=== PATIENT | male | born 1945 | race African-American/Black ===

== ENCOUNTER → 2016-05-11 | Outpatient (CLI) | payer MEDICARE ==
[2016-05-11 15:00] LABS: ANION GAP 10 (5-19); BLOOD UREA NITROGEN 13 mg/dL (7-20); CALCIUM 10.2 mg/dL (8.4-10.2); CARBON DIOXIDE 29 mmol/L (22-30); CHLORIDE 105 mmol/L (98-107); CREATININE RESULT 1.71 mg/dL (0.52-1.25); GLUCOSE 92 mg/dL (75-110); POTASSIUM 4.4 mmol/L (3.6-5.0); SODIUM 143.7 mmol/L (137-145)
== END ==
LOC: OD 13:52
PROVIDERS: ATTEND Internal Medicine Nephrology
DX: I12.9 Hypertensive chronic kidney disease with stage 1 through stage 4 chronic kidney disease, or unspecified chronic kidney disease (principal); N18.3 Chronic kidney disease, stage 3 (moderate)
CPT/HCPCS: 36415; 80048

== ENCOUNTER 2016-09-23 16:49 | Inpatient (IN) | payer MEDICARE ==
[2016-09-23] MEDS ORDERED: IPRATROPIUM/ALBUTEROL 0.5-2.5 MG/3 ML AMPUL NEB ONE ×2 (17:01→17:03)
--- NOTE | 2016-09-23 17:04 | ER Document Report ---
ED Medical Screen (RME) - General Chief Complaint: Respiratory Distress Stated Complaint: DIFFICULTY BREATHING Time Seen by Provider: 09/23/16 16:57 Notes: This 71-year-old male patient with past history of stroke and heart attack brought to emergency room for respiratory difficulty that probably started during the night. His family reports that he vomited quite a bit last night while he is in bed but it had not been noticed until this morning. He is on Coumadin, and medications for his COPD. He is quite dyspneic using accessory muscles, pulse ox is 90% on room air and increased to 100% on 2 L nasal cannula. He did remain quite tachypneic despite the oxygen. I have greeted and performed a rapid initial assessment of this patient. A comprehensive ED assessment and evaluation of the patient, analysis of test results and completion of the medical decision making process will be conducted by additional ED providers. TRAVEL OUTSIDE OF THE [place] IN LAST 30 DAYS: No - Related Data Allergies/Adverse Reactions: No Known Allergies Allergy (Verified 09/23/16 16:51) Past Medical History - Past Medical History Cardiac Medical History: Reports: Hx Heart Attack, Hx Hypertension Pulmonary Medical History: Reports: Hx COPD Neurological Medical History: Reports: Hx Cerebrovascular Accident Renal/ Medical History: Denies: Hx Peritoneal Dialysis Psychiatric Medical History: Denies: Hx Depression Physical Exam - Vital signs Vitals: Temp Pulse Resp BP Pulse Ox 98.2 F 81 32 H 188/100 H 90 L 09/23/16 16:51 09/23/16 16:51 09/23/16 16:51 09/23/16 16:51 09/23/16 16:51 Course - Vital Signs Vital signs: Temp Pulse Resp BP Pulse Ox 98.2 F 81 32 H 188/100 H 90 L 09/23/16 16:51 09/23/16 16:51 09/23/16 16:51 09/23/16 16:51 09/23/16 16:51
[2016-09-23] MEDS ORDERED: ASPIRIN 325 MG TABLET PO ONE (17:45)
[2016-09-23] MEDS ORDERED: METHYLPREDNISOLONE INJ 125 MG/2 ML SDV IV ONE (17:45)
--- NOTE | 2016-09-23 17:48 | RADIOLOGY REPORT (SQ) ---
EXAM DESCRIPTION: CHEST SINGLE VIEW COMPLETED DATE/TIME: 09/23/2016 5:35 pm REASON FOR STUDY: SOB COMPARISON: 08/22/2014 EXAM PARAMETERS: NUMBER OF VIEWS: One view. TECHNIQUE: Single frontal radiographic view of the chest acquired. RADIATION DOSE: NA LIMITATIONS: None. FINDINGS: LUNGS AND PLEURA: No opacities, masses or pneumothorax. No pleural effusion. MEDIASTINUM AND HILAR STRUCTURES: No masses. Contour normal. HEART AND VASCULAR STRUCTURES: Heart normal in size. Normal vasculature. BONES: No acute findings. HARDWARE: None in the chest. OTHER: No other significant finding. IMPRESSION: NO ACUTE RADIOGRAPHIC FINDING IN THE CHEST. TECHNICAL DOCUMENTATION: JOB ID: [id number]
[2016-09-23 18:02] LABS: ARTERIAL BLOOD BASE EXCESS -0.6 mmol/L; ARTERIAL BLOOD O2 SATURATION 97.2 % (94-98)
--- NOTE | 2016-09-23 18:40 | ER Document Report ---
ED Respiratory Problem - General Mode of Arrival: Wheelchair Information source: Patient TRAVEL OUTSIDE OF THE [place] IN LAST 30 DAYS: No - HPI Onset: Other - Refer to HPI notes Associated symptoms: Other - vomiting, abdominal pain Similar symptoms previously: No Recently seen / treated by doctor: No <SOCORRO MONROY - Last Filed: 09/23/16 20:26> <DORIS SCHWAB - Last Filed: 09/24/16 01:03> - General Chief Complaint: Respiratory Distress Stated Complaint: DIFFICULTY BREATHING Time Seen by Provider: 09/23/16 16:57 Notes: Patient is a 71 year old male presenting to the emergency department for dyspnea. Patient's family reports that the patient vomited a lot last night while he was in bed. Patient took his medications this morning and has been complaining of some abdominal pain. Patient was 90% pulse ox on room air at triage and tachypneic still with 2 L of oxygen. Patient has a history of CVA, COPD, MA, hypertension and CHF. Patient's sees Dr. Kebede (urology) and Dr. Hancock (cardiology). (SOCORRO MONROY) Patient described note Dr. Kebede is nephrology. (DORIS SCHWAB) - Related Data Allergies/Adverse Reactions: No Known Allergies Allergy (Verified 09/23/16 16:51) Home Medications: Current Home Medications Albuterol Sulfate [Ventolin Hfa] 1 - 2 puff IH Q4 PRN 09/23/16 [History] [place]-3/Dha/Epa/Fish Oil [Fish Oil 1,000 mg Softgel] 1 each PO DAILY 09/23/16 [ History] Rivaroxaban [Xarelto] 15 mg PO DAILY 09/23/16 [History] Past Medical History - General Information source: Patient - Social History Smoking Status: Former Smoker Chew tobacco use (# tins/day): No Frequency of alcohol use: None Drug Abuse: None Family History: None Patient has suicidal ideation: No Patient has homicidal ideation: No - Past Medical History Cardiac Medical History: Reports: Hx Congestive Heart Failure, Hx Heart Attack, Hx Hypertension Pulmonary Medical History: Reports: Hx COPD Neurological Medical History: Reports: Hx Cerebrovascular Accident Surgical Hx: Negative <SOCORRO MONROY - Last Filed: 09/23/16 20:26> Review of Systems - Review of Systems Constitutional: No symptoms reported EENT: No symptoms reported Cardiovascular: No symptoms reported Respiratory: See HPI Gastrointestinal: See HPI, Abdomen distended, Abdominal pain, Nausea, Vomiting Genitourinary: No symptoms reported Male Genitourinary: No symptoms reported Musculoskeletal: No symptoms reported Skin: No symptoms reported Hematologic/Lymphatic: No symptoms reported Neurological/Psychological: No symptoms reported -: Yes All other systems reviewed and negative <SOCORRO MONROY - Last Filed: 09/23/16 20:26> Physical Exam <SOCORRO MONROY - Last Filed: 09/23/16 20:26> <DORIS SCHWAB - Last Filed: 09/24/16 01:03> - Vital signs Vitals: Temp Pulse Resp BP Pulse Ox 98.2 F 81 32 H 188/100 H 90 L 09/23/16 16:51 09/23/16 16:51 09/23/16 16:51 09/23/16 16:51 09/23/16 16:51 - Notes Notes: GENERAL: Alert, interacts well. No acute distress. HEAD: Normocephalic, atraumatic. EYES: Pupils equal, round, and reactive to light. Extraocular movements intact. ENT: Oral mucosa moist, tongue midline. NECK: Full range of motion. Supple. Trachea midline. LUNGS: Tachypneic. Accessory muscle use. Expiratory wheezing. Inspiratory crackles at the bases. HEART: Regular rate and rhythm. No murmurs, gallops, or rubs. ABDOMEN: Soft, no obvious signs of pain with palpation. Moderate distention. Bowel sounds present in all 4 quadrants. EXTREMITIES: Moves all 4 extremities spontaneously. Trace pitting edema at the ankles bilaterally. Radial and dorsalis pedis pulses 2/4 bilaterally. No cyanosis. NEUROLOGICAL: Alert and oriented x3. Normal speech. PSYCH: Normal affect, normal mood. SKIN: Warm, dry, normal turgor. No rashes or lesions noted. (SOCORRO MONROY) Correction to scribe exam the patient is alert but does not interact well, he is acutely short of breath, he is alert but is not oriented to person place or time, he answers all questions by saying yes and then will have 1-2 words that are actually pertinent to the question. (DORIS SCHWAB) Course - Laboratory Result Diagrams: 09/23/16 19:29 09/23/16 19:29 <SOCORRO MONROY - Last Filed: 09/23/16 20:26> - Laboratory Result Diagrams: 09/23/16 19:29 09/23/16 19:29 <DORIS SCHWAB - Last Filed: 09/24/16 01:03> - Re-evaluation Re-evalutation: 09/23/16 20:26 Patient was rechecked at this time. Patient is still wheezing and using accessory muscles when breathing. BiPAP will be ordered. (SOCORRO MONROY) 09/23/16 22:10 . CBC unremarkable, on Xarelto, arterial blood gas shows respiratory acidosis with pH of 7.3 and PCO2 of 55, CMP shows elevated creatinine 1.45 otherwise unremarkable, cardiac enzymes negative, proBNP somewhat elevated 924 but not clinically consistent with the patient's picture, chest x-ray negative, CT scan of the abdomen and pelvis was undertaken given the history of vomiting and the abdominal distention, this is negative. Discussed patient with Dr. Bernard the hospitalist on-call who agrees to admit the patient to his service as the patient did not improve with breathing treatments or steroids. Patient was placed on BiPAP and appears more comfortable. Patient will be admitted to the telemetry unit. (DORIS SCHWAB) - Vital Signs Vital signs: Temp Pulse Resp BP Pulse Ox 98 F 81 24 H 141/83 H 95 09/24/16 00:00 09/23/16 16:51 09/24/16 00:05 09/24/16 00:00 09/24/16 00:05 - Laboratory Laboratory results interpreted by me: 09/23/16 09/23/16 09/23/16 17:52 19:29 19:29 PT 16.9 H Carbonic Acid 1.66 H ABG pH 7.30 L ABG pCO2 55.3 H ABG pO2 104.6 H ABG HCO3 26.8 H ABG Total CO2 28.5 H Creatinine 1.45 H Est GFR ( Amer) 58 L Est GFR (Non-Af Amer) 48 L Creatine Kinase 778 H NT-Pro-B Natriuret Pep Total Protein 8.7 H 09/23/16 19:29 PT Carbonic Acid ABG pH ABG pCO2 ABG pO2 ABG HCO3 ABG Total CO2 Creatinine Est GFR ( Amer) Est GFR (Non-Af Amer) Creatine Kinase NT-Pro-B Natriuret Pep 924 H Total Protein - EKG Interpretation by Me Additional EKG results interpreted by me: 09/23/16 22:11 EKG shows sinus rhythm at a rate of 72, left anterior hemiblock, no ST segment elevations or depressions, no T-wave in our T-wave inversions noted in 1 and aVL as well as V2 per my interpretation. (DORIS SCHWAB) Discharge <SOCORRO MONROY - Last Filed: 09/23/16 20:26> - Discharge Admitting Provider: [place] [facility] Admitted: Telemetry <DORIS SCHWAB - Last Filed: 09/24/16 01:03> - Discharge Clinical Impression: COPD exacerbation, Acute respiratory acidosis, Acute respiratory failure with hypoxia and hypercapnia Condition: Fair Disposition: ADMITTED INPATIENT Scribe Attestation: 09/24/16 01:03 I personally performed the services described in the documentation, reviewed and edited the documentation which was dictated to the scribe in my presence, and it accurately records my words and actions. (DORIS SCHWAB) Scribe Documentation - Scribe Written by Scribsridhar:: Corinne Nguyen, 09/23/2016 19:00 acting as scribe for :: Zach <SOCORRO MONROY - Last Filed: 09/23/16 20:26>
[2016-09-23 19:39] LABS: ABSOLUTE EOSINOPHILS # (AUTO) 0.4 10^3/uL (0.0-0.6); ABSOLUTE LYMPHOCYTES (AUTO) 1.7 10^3/uL (0.5-4.7); ABSOLUTE MONOCYTES (AUTO) 0.3 10^3/uL (0.1-1.4); ABSOLUTE NEUT (AUTO) 4.8 10^3/uL (1.7-8.2); BASOPHILS % (AUTO) 0.4 % (0-2); HEMATOCRIT 45.8 % (37.9-51.0); HEMOGLOBIN 14.7 g/dL (13.5-17.0); HGB HCT DIFFERENCE -1.7; MEAN CORPUSCULAR HEMOGLOBIN 29.1 pg (27.0-33.4); MEAN CORPUSCULAR HGB CONC 32.1 g/dL (32.0-36.0); MEAN CORPUSCULAR VOLUME 91 fl (80-97); MONOCYTES % (AUTO) 3.5 % (3-13); RED BLOOD COUNT 5.05 10^6/uL (4.35-5.55); RED CELL DISTRIBUTION WIDTH 13.4 % (11.5-14.0); SEGMENTED NEUTROPHILS % (AUTO) 66.1 % (42-78); WHITE BLOOD COUNT 7.2 10^3/uL (4.0-10.5)
[2016-09-23 19:56] LABS: ALANINE AMINOTRANSFERASE 34 U/L (21-72); ALBUMIN 4.6 g/dL (3.5-5.0); ALKALINE PHOSPHATASE 55 U/L (38-126); ANION GAP 13 (5-19); ASPARTATE AMINO TRANSFERASE 31 U/L (17-59); BILIRUBIN,DIRECT 0.3 mg/dL (0.0-0.4); BILIRUBIN,TOTAL 0.5 mg/dL (0.2-1.3); BLOOD UREA NITROGEN 14 mg/dL (7-20); CALCIUM 10.2 mg/dL (8.4-10.2); CARBON DIOXIDE 25 mmol/L (22-30); CHLORIDE 106 mmol/L (98-107); CREATINE KINASE 778 U/L (55-170); CREATININE RESULT 1.45 mg/dL (0.52-1.25); GLUCOSE 99 mg/dL (75-110); SODIUM 143.8 mmol/L (137-145); TOTAL PROTEIN 8.7 g/dL (6.3-8.2)
[2016-09-23 19:57] LABS: PROTHROMBIN TIME 16.9 SEC (11.4-15.4)
[2016-09-23 20:08] LABS: CREATINE KINASE MB 3.89 ng/mL (<4.55); TROPONIN I < 0.012 ng/mL
[2016-09-23] MEDS ORDERED: ALBUTEROL SULFATE 0.083% NEB 2.5 MG/3 ML AMPUL NEB ONE (20:26)
--- NOTE | 2016-09-23 21:22 | RADIOLOGY REPORT (SQ) ---
EXAM DESCRIPTION: CT ABD/PELVIS WITH IV ONLY COMPLETED DATE/TIME: 09/23/2016 9:00 pm REASON FOR STUDY: pain, abdominal distention COMPARISON: 08/22/2014 TECHNIQUE: CT scan of the abdomen and pelvis performed using helical scanning technique with dynamic intravenous contrast injection. No oral contrast. Images reviewed with lung, soft tissue, and bone windows. Reconstructed coronal and sagittal MPR images reviewed. Delayed images for evaluation of the urinary system also acquired. All images stored on PACS. All CT scanners at this facility use dose modulation, iterative reconstruction, and/or weight based d osing when appropriate to reduce radiation dose to as low as reasonably achievable (ALARA). [facility]: Dose Right [facility]: CareDose [facility]: Dose Right [facility]: Teradose 4D [facility]: [employer] CONTRAST TYPE AND DOSE: 100 mL Isovue 370- low osmolar. RENAL FUNCTION: GFR > 60. RADIATION DOSE: 23.57mGy. LIMITATIONS: None. FINDINGS: LOWER CHEST: No significant findings. No nodules or infiltrates. LIVER: Normal size. No masses or dilated ducts. SPLEEN: Normal size. No focal lesions. PANCREAS: No masses. No significant calcifications. No adjacent inflammation or peripancreatic fluid collections. Pancreatic duct not dilated. GALLBLADDER: Surgically absent. ADRENAL GLANDS: No significant masses or asymmetry. RIGHT KIDNEY AND URETER: No solid masses. Small cyst. No significant calcifications. No hydroneph rosis or hydroureter. LEFT KIDNEY AND URETER: No solid masses. Small cyst. No significant calcifications. No hydronephr osis or hydroureter. AORTA AND VESSELS: No aneurysm. No dissection. Renal arteries, SMA, celiac without stenosis. RETROPERITONEUM: No retroperitoneal adenopathy, hemorrhage or masses. BOWEL AND PERITONEAL CAVITY: Colonic diverticulosis. No masses or inflammatory changes. No free flui d or peritoneal masses. APPENDIX: Not visualized. PELVIS: No mass or free fluid. Normal bladder. ABDOMINAL WALL: No masses. No hernias. BONES: No significant or acute findings. OTHER: No other significant finding. IMPRESSION: NO ACUTE FINDING IN THE ABDOMEN OR PELVIS ON CT SCAN WITH IV CONTRAST. TECHNICAL DOCUMENTATION: JOB ID: [id number] Quality ID # [id number]: Final reports with documentation of one or more dose reduction techniques (e.g., Au tomated exposure control, adjustment of the mA and/or kV according to patient size, use of iterative reconstruction technique) 2010 [employer]- All Rights Reserved
[2016-09-23] MEDS ORDERED: IPRATROPIUM/ALBUTEROL 0.5-2.5 MG/3 ML AMPUL NEB PRN (22:09)
[2016-09-23] MEDS ORDERED: ACETAMINOPHEN 325 MG TABLET PO PRN (22:09)
[2016-09-23] MEDS ORDERED: LACTULOSE SYRUP 20 GM/30 ML UDCUP PO ONE (22:09)
[2016-09-23] MEDS ORDERED: GUAIFENESIN SYRP 200 MG/10 ML UDC PO PRN (22:09)
[2016-09-23] MEDS ORDERED: HYDRALAZINE HCL INJ/PF 20 MG/1 ML SDV IV PRN (22:14)
[2016-09-23] MEDS ORDERED: CHLORPHENIRAMINE MALEATE 4 MG TABLET PO PRN (22:18)
--- NOTE | 2016-09-24 01:41 | PDOC H&P ---
History of Present Illness Admission Date/PCP: 09/23/16 22:09 FIDEL HANDY DO Patient complains of: Shortness of breath and cough History of Present Illness: DALY PORTILLO SR is a 71 year old male past medical history of schizophrenia status post CVA with expressive aphasia, COPD, hypertension and chronic anticoagulation. Patient is brought to the emergency room for evaluation after approximately 3 days of excessive oral airway secretions and nonproductive cough developing shortness of breath and tachypnea. He is treated symptomatically in the emergency room and placed on BiPAP he is accompanied by his sister who verifies he appears to be much improved. Otherwise had poor appetite. Extremities felt to have a COPD exacerbation referred to the hospitalist for admission Past Medical History Cardiac Medical History: Reports: Congestive Heart Failure, Myocardial Infarction, Hypertension Pulmonary Medical History: Reports: Chronic Obstructive Pulmonary Disease (COPD) Psychiatric Medical History: Reports: Schizoaffective Disorder Denies: Depression Social History Information Source: Relative, [facility] Records Lives with: Family Smoking Status: Former Smoker Frequency of Alcohol Use: None Hx Recreational Drug Use: No Hx Prescription Drug Abuse: No - Advance Directive Resuscitation Status: Full Code Family History Family History: COPD Parental Family History Reviewed: Yes Children Family History Reviewed: Yes Sibling(s) Family History Reviewed.: Yes Medication/Allergy Home Medications: Trazodone HCl 200 mg PO DAILY 05/21/11 Budesonide/Formoterol Fumarate [Symbicort HFA 160-4.5 mcg Inhaler 6 gm] 2 puff IH Q12 08/22/14 Escitalopram Oxalate 10 mg PO DAILY 08/22/14 Furosemide [Lasix] 20 mg PO Q7D 08/22/14 Metoprolol Tartrate 25 mg PO BID 08/22/14 Olanzapine 5 mg PO DAILY 08/22/14 Albuterol Sulfate [Ventolin Hfa] 1 - 2 puff IH Q4 PRN 09/23/16 [place]-3/Dha/Epa/Fish Oil [Fish Oil 1,000 mg Softgel] 1 each PO DAILY 09/23/16 Rivaroxaban [Xarelto] 15 mg PO DAILY 09/23/16 Allergies/Adverse Reactions: No Known Allergies Allergy (Verified 09/23/16 16:51) Review of Systems ROS unobtainable: Due to mental status - Short of breath with expressive aphasia Physical Exam Vital Signs: Temp Pulse Resp BP Pulse Ox 98 F 81 24 H 141/83 H 95 09/24/16 00:00 09/23/16 16:51 09/24/16 00:05 09/24/16 00:00 09/24/16 00:05 General appearance: PRESENT: cooperative, disheveled, mild distress, obese Head exam: PRESENT: atraumatic, normocephalic Eye exam: PRESENT: conjunctiva pink, EOMI, PERRLA. ABSENT: scleral icterus Ear exam: PRESENT: normal external ear exam Mouth exam: PRESENT: moist, tongue midline Neck exam: ABSENT: carotid bruit, JVD, lymphadenopathy, thyromegaly Respiratory exam: PRESENT: accessory muscle use, crackles, prolonged expiratory phas, rales, tachypnea. ABSENT: chest wall tenderness, retraction, stridor Cardiovascular exam: PRESENT: RRR. ABSENT: diastolic murmur, rubs, systolic murmur Pulses: PRESENT: normal dorsalis pedis pul Vascular exam: PRESENT: normal capillary refill GI/Abdominal exam: PRESENT: normal bowel sounds, soft. ABSENT: distended, guarding, mass, organolmegaly, rebound, tenderness Rectal exam: PRESENT: deferred Extremities exam: PRESENT: full ROM. ABSENT: calf tenderness, clubbing, pedal edema Neurological exam: PRESENT: alert, awake, oriented to person, oriented to place , oriented to time, oriented to situation, CN II-XII grossly intact, aphasic. ABSENT: motor sensory deficit Psychiatric exam: PRESENT: appropriate affect, normal mood. ABSENT: homicidal ideation, suicidal ideation Skin exam: PRESENT: dry, intact, warm. ABSENT: cyanosis, rash Results Impressions: Chest X-Ray 09/23/16 17:00 IMPRESSION: NO ACUTE RADIOGRAPHIC FINDING IN THE CHEST. Abdomen/Pelvis CT 09/23/16 17:46 IMPRESSION: NO ACUTE FINDING IN THE ABDOMEN OR PELVIS ON CT SCAN WITH IV CONTRAST. Assessment & Plan - Diagnosis (1) Acute respiratory failure with hypoxia and hypercapnia Is this a current diagnosis for this admission?: YesPlan: Secondary to URI complicated by obesity, aphasia and schizophrenia. He started on BiPAP, Flonase DuoNeb and chlorpheniramine with empiric antibiotics (2) COPD exacerbation Is this a current diagnosis for this admission?: YesPlan: Please see #1 follow-up chest x-ray for possible evolving pneumonia - Time Time Spent: 30 to 50 Minutes
[2016-09-24] MEDS: IPRATROPIUM/ALBUTEROL 0.5-2.5 MG/3 ML AMPUL NEB SCH ×4 (01:54→20:33)
[2016-09-24 02:02] LABS: CREATINE KINASE MB 3.52 ng/mL (<4.55)
[2016-09-24 02:05] LABS: TROPONIN I < 0.012 ng/mL
[2016-09-24] MEDS ORDERED: LACTULOSE SYRUP 20 GM/30 ML UDCUP PO ONE (03:00)
[2016-09-24] MEDS ORDERED: FLUTICASONE NASAL SPRAY 50 MCG/SPRY 120 SPRAY/16 GM ONE (03:39)
[2016-09-24] MEDS: HEPARIN SOD (PORCINE) 5,000 UNIT/ML 1 ML SYRINGE SUBCUT SCH ×3 (06:14→22:49)
[2016-09-24 08:25] LABS: ABSOLUTE LYMPHOCYTES (AUTO) 1.5 10^3/uL (0.5-4.7); ABSOLUTE MONOCYTES (AUTO) 0.1 10^3/uL (0.1-1.4); ABSOLUTE NEUT (AUTO) 8.3 10^3/uL (1.7-8.2); BASOPHILS % (AUTO) 0.1 % (0-2); EOSINOPHILS % (AUTO) 0.1 % (0-6); HEMATOCRIT 43.3 % (37.9-51.0); HEMOGLOBIN 13.7 g/dL (13.5-17.0); HGB HCT DIFFERENCE -2.2; LYMPHOCYTES % (AUTO) 15.2 % (13-45); MEAN CORPUSCULAR HEMOGLOBIN 28.9 pg (27.0-33.4); MEAN CORPUSCULAR HGB CONC 31.7 g/dL (32.0-36.0); MEAN CORPUSCULAR VOLUME 91 fl (80-97); MONOCYTES % (AUTO) 1.3 % (3-13); RED BLOOD COUNT 4.76 10^6/uL (4.35-5.55); RED CELL DISTRIBUTION WIDTH 13.4 % (11.5-14.0); SEGMENTED NEUTROPHILS % (AUTO) 83.3 % (42-78); WHITE BLOOD COUNT 9.9 10^3/uL (4.0-10.5)
[2016-09-24 08:51] LABS: ANION GAP 14 (5-19); BLOOD UREA NITROGEN 17 mg/dL (7-20); CALCIUM 9.7 mg/dL (8.4-10.2); CARBON DIOXIDE 21 mmol/L (22-30); CHLORIDE 108 mmol/L (98-107); CREATINE KINASE 387 U/L (55-170); CREATININE RESULT 1.36 mg/dL (0.52-1.25); GLUCOSE 164 mg/dL (75-110); POTASSIUM 4.4 mmol/L (3.6-5.0); SODIUM 143.3 mmol/L (137-145)
[2016-09-24 09:04] LABS: CREATINE KINASE MB 3.25 ng/mL (<4.55)
[2016-09-24 09:09] LABS: TROPONIN I < 0.012 ng/mL
[2016-09-24] MEDS ORDERED: (PENDING PHARMACY ID) (Trazodone Hcl [Trazodone Hcl] 200 MG) PO SCH (10:00)
[2016-09-24] MEDS ORDERED: LEVOFLOXACIN 750 MG/D5W RTU 150 ML IV SCH (10:00)
[2016-09-24] MEDS: FLUTICASONE NASAL SPRAY 50 MCG/SPRY 120 SPRAY/16 GM NASL SCH ×2 (11:04→22:49)
[2016-09-24] MEDS: BUDESONIDE/FORMOTEROL 160-4.5 MCG 60 PUFF/6 GM MDI IH SCH ×2 (11:04→22:49)
[2016-09-24] MEDS: TRAZODONE HCL 50 MG TABLET PO SCH (11:05)
[2016-09-24] MEDS: GUAIFENESIN 600 MG TABLET.SA PO SCH ×2 (11:06→22:48)
[2016-09-24] MEDS: OLANZAPINE 5 MG TABLET PO SCH (11:06)
[2016-09-24] MEDS: ESCITALOPRAM OXALATE 10 MG TABLET PO SCH (11:06)
[2016-09-24] MEDS: RIVAROXABAN 15 MG TABLET PO SCH (11:07)
[2016-09-24] MEDS: METOPROLOL TARTRATE 25 MG TABLET PO SCH ×2 (11:07→18:08)
[2016-09-24] MEDS ORDERED: DIPHENHYDRAMINE HCL 50 MG/ML VIAL IV ONE (13:15)
--- NOTE | 2016-09-24 13:37 | PDOC PROGRESS REPORT ---
Subjective Progress Note for:: 09/24/16 Subjective:: Patient seen on morning rounds. He is resting comfortably in bed. His sister is at bedside. He states his breathing is easier. He denies any shortness of breath , dyspnea or chest pain. He has a congested cough. He denies any fevers or chills. He denies any fevers or chills. He denies any nausea, vomiting or abdominal pain. Rest of review of systems is negative Physical Exam Vital Signs: Temp Pulse Resp BP Pulse Ox 97.5 F 86 16 131/70 H 98 09/24/16 12:00 09/24/16 12:00 09/24/16 12:00 09/24/16 12:00 09/24/16 12:00 Intake & Output 09/23/16 09/24/16 09/25/16 06:59 06:59 06:59 Intake Total 135 Balance 135 Weight 111.2 kg General appearance: PRESENT: no acute distress, obese, well-developed, well- nourished Head exam: PRESENT: atraumatic, normocephalic Eye exam: PRESENT: conjunctiva pink, EOMI, PERRLA. ABSENT: scleral icterus Ear exam: PRESENT: normal external ear exam Mouth exam: PRESENT: dry mucosa Teeth exam: PRESENT: poor dentation Neck exam: ABSENT: carotid bruit, JVD, lymphadenopathy, thyromegaly Respiratory exam: PRESENT: rhonchi - bilaterally, symmetrical, unlabored Cardiovascular exam: PRESENT: RRR. ABSENT: diastolic murmur, rubs, systolic murmur Pulses: PRESENT: normal dorsalis pedis pul Vascular exam: PRESENT: normal capillary refill GI/Abdominal exam: PRESENT: normal bowel sounds, soft. ABSENT: distended, guarding, mass, organolmegaly, rebound, tenderness Rectal exam: PRESENT: deferred Extremities exam: PRESENT: full ROM. ABSENT: calf tenderness, clubbing, pedal edema Musculoskeletal exam: PRESENT: ambulatory, full ROM Neurological exam: PRESENT: alert, awake, oriented to person, oriented to place , oriented to time, oriented to situation, CN II-XII grossly intact. ABSENT: motor sensory deficit Psychiatric exam: PRESENT: appropriate affect, normal mood. ABSENT: homicidal ideation, suicidal ideation Skin exam: PRESENT: dry, intact, warm. ABSENT: cyanosis, rash Results Laboratory Results: 09/24/16 07:58 06/10/17 07:58 09/24/16 09/24/16 07:58 07:58 WBC 9.9 RBC 4.76 Hgb 13.7 Hct 43.3 MCV 91 MCH 28.9 MCHC 31.7 L RDW 13.4 Plt Count 196 Seg Neutrophils % 83.3 H Lymphocytes % 15.2 Monocytes % 1.3 L Eosinophils % 0.1 Basophils % 0.1 Absolute Neutrophils 8.3 H Absolute Lymphocytes 1.5 Absolute Monocytes 0.1 Absolute Eosinophils 0.0 Absolute Basophils 0.0 Sodium 143.3 Potassium 4.4 Chloride 108 H Carbon Dioxide 21 L Anion Gap 14 BUN 17 Creatinine 1.36 H Est GFR ( Amer) > 60 Est GFR (Non-Af Amer) 52 L Glucose 164 H Calcium 9.7 09/24/16 09/24/16 09/24/16 01:21 01:21 07:58 Creatine Kinase 610 H 387 H CK-MB (CK-2) 3.52 Troponin I < 0.012 09/24/16 07:58 Creatine Kinase CK-MB (CK-2) 3.25 Troponin I < 0.012 Impressions: Chest X-Ray 09/23/16 17:00 IMPRESSION: NO ACUTE RADIOGRAPHIC FINDING IN THE CHEST. Abdomen/Pelvis CT 09/23/16 17:46 IMPRESSION: NO ACUTE FINDING IN THE ABDOMEN OR PELVIS ON CT SCAN WITH IV CONTRAST. Assessment & Plan - Diagnosis (1) Acute respiratory failure with hypoxia and hypercapnia Is this a current diagnosis for this admission?: YesPlan: Improved off BIPAP on nasal cannula. (2) COPD exacerbation Is this a current diagnosis for this admission?: YesPlan: Continue nebulizer treatments (3) Schizophrenia Qualifiers: Schizophrenia type: unspecified Qualified Code(s): F20.9 - Schizophrenia, unspecified Is this a current diagnosis for this admission?: YesPlan: Continue home medications (4) Expressive aphasia Is this a current diagnosis for this admission?: YesPlan: Chronic. Post CVA - Time Time Spent with patient: 25-34 minutes Critical Time spent with patient: 15-24 minutes Medications reviewed and adjusted accordingly: Yes
[2016-09-24 15:09] LABS: CREATINE KINASE MB 3.96 ng/mL (<4.55)
[2016-09-24 15:12] LABS: TROPONIN I < 0.012 ng/mL
[2016-09-24] MEDS: AZITHROMYCIN 500 MG in DEXTROSE 5%-WATER 250 ML IV SCH (18:09)
[2016-09-25] MEDS: IPRATROPIUM/ALBUTEROL 0.5-2.5 MG/3 ML AMPUL NEB SCH ×4 (02:00→20:08)
[2016-09-25] MEDS: HEPARIN SOD (PORCINE) 5,000 UNIT/ML 1 ML SYRINGE SUBCUT SCH ×3 (05:30→21:47)
[2016-09-25] MEDS ORDERED: AZITHROMYCIN 500 MG in DEXTROSE 5%-WATER 250 ML IV SCH (08:00)
[2016-09-25] MEDS: FLUTICASONE NASAL SPRAY 50 MCG/SPRY 120 SPRAY/16 GM NASL SCH ×2 (10:12→21:48)
[2016-09-25] MEDS: BUDESONIDE/FORMOTEROL 160-4.5 MCG 60 PUFF/6 GM MDI IH SCH ×2 (10:12→21:49)
[2016-09-25] MEDS: TRAZODONE HCL 50 MG TABLET PO SCH (10:13)
[2016-09-25] MEDS: OLANZAPINE 5 MG TABLET PO SCH (10:16)
[2016-09-25] MEDS: GUAIFENESIN 600 MG TABLET.SA PO SCH ×2 (10:17→21:50)
[2016-09-25] MEDS: METOPROLOL TARTRATE 25 MG TABLET PO SCH ×2 (10:17→17:41)
[2016-09-25] MEDS: RIVAROXABAN 15 MG TABLET PO SCH (10:17)
[2016-09-25] MEDS: ESCITALOPRAM OXALATE 10 MG TABLET PO SCH (10:18)
--- NOTE | 2016-09-25 10:54 | PDOC PROGRESS REPORT ---
Subjective Progress Note for:: 09/25/16 Subjective:: Patient seen on morning rounds. He is resting comfortably in bed. His sister is at bedside. He continues to have cough and mild wheezing. He denies any shortness of breath, dyspnea or chest pain. He has a congested cough. He denies any fevers or chills. He denies any fevers or chills. He denies any nausea, vomiting or abdominal pain. Rest of review of systems is negative Physical Exam Vital Signs: Temp Pulse Resp BP Pulse Ox 98.3 F 72 18 121/57 L 94 09/25/16 07:41 09/25/16 07:58 09/25/16 07:58 09/25/16 07:41 09/25/16 07:58 Intake & Output 09/24/16 09/25/16 09/26/16 06:59 06:59 06:59 Intake Total 135 1036 Balance 135 1036 Weight 111.2 kg 111.2 kg General appearance: PRESENT: no acute distress, obese, well-developed, well- nourished Head exam: PRESENT: atraumatic, normocephalic Eye exam: PRESENT: conjunctiva pink, EOMI, PERRLA. ABSENT: scleral icterus Ear exam: PRESENT: normal external ear exam Mouth exam: PRESENT: moist, tongue midline Neck exam: ABSENT: carotid bruit, JVD, lymphadenopathy, thyromegaly Respiratory exam: PRESENT: symmetrical, tachypnea, wheezes Cardiovascular exam: PRESENT: RRR. ABSENT: diastolic murmur, rubs, systolic murmur Pulses: PRESENT: normal dorsalis pedis pul Vascular exam: PRESENT: normal capillary refill GI/Abdominal exam: PRESENT: normal bowel sounds, soft. ABSENT: distended, guarding, mass, organolmegaly, rebound, tenderness Rectal exam: PRESENT: deferred Extremities exam: PRESENT: full ROM. ABSENT: calf tenderness, clubbing, pedal edema Neurological exam: PRESENT: alert, awake, oriented to person, CN II-XII grossly intact, other - mild expressive dysphasia from prior CVA. ABSENT: motor sensory deficit Psychiatric exam: PRESENT: appropriate affect, normal mood. ABSENT: homicidal ideation, suicidal ideation Skin exam: PRESENT: dry, intact, warm. ABSENT: cyanosis, rash Results Laboratory Results: 09/24/16 07:58 09/24/16 07:58 09/24/16 09/24/16 09/24/16 01:21 01:21 07:58 Creatine Kinase 610 H 387 H CK-MB (CK-2) 3.52 Troponin I < 0.012 09/24/16 09/24/16 09/24/16 07:58 13:50 13:50 Creatine Kinase 371 H CK-MB (CK-2) 3.25 3.96 Troponin I < 0.012 < 0.012 Impressions: Chest X-Ray 09/23/16 17:00 IMPRESSION: NO ACUTE RADIOGRAPHIC FINDING IN THE CHEST. Abdomen/Pelvis CT 09/23/16 17:46 IMPRESSION: NO ACUTE FINDING IN THE ABDOMEN OR PELVIS ON CT SCAN WITH IV CONTRAST. Assessment & Plan - Diagnosis (1) Acute respiratory failure with hypoxia and hypercapnia Is this a current diagnosis for this admission?: YesPlan: Improved off BIPAP on nasal cannula. (2) COPD exacerbation Is this a current diagnosis for this admission?: YesPlan: Continue nebulizer treatments. Nocturnal pulse oxymetry may benefit from CPAP at (3) Schizophrenia Qualifiers: Schizophrenia type: unspecified Qualified Code(s): F20.9 - Schizophrenia, unspecified Is this a current diagnosis for this admission?: YesPlan: Continue home medications (4) Expressive aphasia Is this a current diagnosis for this admission?: YesPlan: Chronic. Post CVA - Time Time Spent with patient: 25-34 minutes Critical Time spent with patient: 15-24 minutes Medications reviewed and adjusted accordingly: Yes Anticipated discharge: Home with Homehealth
[2016-09-25] MEDS: AZITHROMYCIN 500 MG in DEXTROSE 5%-WATER 250 ML IV SCH (17:41)
[2016-09-25] MEDS ORDERED: PHARMACY COMMUNICATION ORDER MC NR (23:45)
[2016-09-26] MEDS ORDERED: ACETAMINOPHEN 325 MG TABLET NG PRN (00:13)
[2016-09-26] MEDS ORDERED: CHLORPHENIRAMINE MALEATE 4 MG TABLET NG PRN (00:14)
[2016-09-26] MEDS ORDERED: GUAIFENESIN SYRP 200 MG/10 ML UDC NG PRN (00:30)
[2016-09-26] MEDS: IPRATROPIUM/ALBUTEROL 0.5-2.5 MG/3 ML AMPUL NEB SCH ×4 (02:20→19:41)
[2016-09-26 04:30] LABS: ANION GAP 12 (5-19); BLOOD UREA NITROGEN 25 mg/dL (7-20); CALCIUM 10.4 mg/dL (8.4-10.2); CARBON DIOXIDE 27 mmol/L (22-30); CHLORIDE 105 mmol/L (98-107); CREATININE RESULT 1.62 mg/dL (0.52-1.25); GLUCOSE 110 mg/dL (75-110); MAGNESIUM 1.7 mg/dL (1.6-2.3); POTASSIUM 3.5 mmol/L (3.6-5.0); SODIUM 143.5 mmol/L (137-145)
[2016-09-26] MEDS: HEPARIN SOD (PORCINE) 5,000 UNIT/ML 1 ML SYRINGE SUBCUT SCH ×3 (05:48→21:39)
--- NOTE | 2016-09-26 06:03 | RADIOLOGY REPORT (SQ) ---
EXAM DESCRIPTION: KUB/ABDOMEN (SINGLE VIEW) COMPLETED DATE/TIME: 09/26/2016 2:04 am REASON FOR STUDY: Check Placement of NG Tube COMPARISON: CT, 09/23/2016. NUMBER OF VIEWS: One view. TECHNIQUE: Supine radiographic image of the abdomen acquired. LIMITATIONS: None. FINDINGS: BOWEL GAS PATTERN: Moderate gaseous transverse colon distention measures 7.6 cm in diamete r. Moderate right stool retention. CALCIFICATIONS: No suspicious calcifications. SOFT TISSUES: No gross mass or suggestion of organomegaly. HARDWARE: NG tube tip and proximal port overlying the left upper abdominal quadrant -stomach, likely adequate. BONES: Mild primary osteoarthritis bilateral hips. OTHER: Small left basilar opacity, effusion, or artifact. IMPRESSION: Adequate appearing NG tube. Nonspecific distention of the transverse colon. New left p ulmonary basilar opacity, nonspecific TECHNICAL DOCUMENTATION: JOB ID: [id number] [employer]- All Rights Reserved
[2016-09-26] MEDS ORDERED: POTASSIUM CHLORIDE 10 MEQ TABLET.SA PO ONE ×3 (08:00→14:31)
[2016-09-26] MEDS ORDERED: ACETAMINOPHEN SOLN 325 MG/10.15 ML UDCUP NG PRN (08:06)
[2016-09-26] MEDS ORDERED: BISACODYL 10 MG SUPP.RECT PR ONE (09:24)
[2016-09-26] MEDS ORDERED: POTASSI CL 20 MEQ/50 ML RIDER 50 ML IV ONE (09:26)
--- NOTE | 2016-09-26 09:48 | EKG REPORT ---
SEVERITY:- ABNORMAL ECG - SINUS RHYTHM LAD, CONSIDER LEFT ANTERIOR FASCICULAR BLOCK PROBABLE ANTEROLATERAL INFARCT, AGE INDETERM : Confirmed by: Frantz Dove 26-Sep-2016 09:46:59
[2016-09-26] MEDS ORDERED: ESCITALOPRAM OXALATE 10 MG TABLET NG SCH (10:00)
[2016-09-26] MEDS ORDERED: RIVAROXABAN 15 MG TABLET NG SCH (10:00)
[2016-09-26] MEDS ORDERED: TRAZODONE HCL 50 MG TABLET NG SCH (10:00)
[2016-09-26] MEDS ORDERED: FUROSEMIDE 20 MG TABLET NG SCH (10:00)
[2016-09-26] MEDS ORDERED: OLANZAPINE 5 MG TABLET NG SCH (10:00)
[2016-09-26] MEDS ORDERED: GUAIFENESIN 600 MG TABLET.SA PO SCH (10:00)
[2016-09-26] MEDS: METOPROLOL TARTRATE 25 MG TABLET NG SCH ×2 (10:18→18:48)
[2016-09-26] MEDS: BUDESONIDE/FORMOTEROL 160-4.5 MCG 60 PUFF/6 GM MDI IH SCH ×2 (10:20→21:41)
[2016-09-26] MEDS: FLUTICASONE NASAL SPRAY 50 MCG/SPRY 120 SPRAY/16 GM NASL SCH ×2 (10:20→21:40)
--- NOTE | 2016-09-26 16:42 | PDOC PROGRESS REPORT ---
Subjective Progress Note for:: 09/26/16 Subjective:: Patient seen on morning rounds. He is resting comfortably in bed. His mother is at bedside today. He had an episode of vomiting last night. He had xray that suggests possible ileus. Patient denies nausea or abdominal pain at the present time. He continues to have cough and mild wheezing. He denies any shortness of breath, dyspnea or chest pain. He has a congested cough. He denies any fevers or chills. He denies any nausea, vomiting or abdominal pain. Rest of review of systems is negative Physical Exam Vital Signs: Temp Pulse Resp BP Pulse Ox 99.1 F 95 18 146/84 H 99 09/26/16 07:44 09/26/16 13:46 09/26/16 13:46 09/26/16 07:44 09/26/16 13:46 Intake & Output 09/25/16 09/26/16 09/27/16 06:59 06:59 06:59 Intake Total 1036 1196 Balance 1036 1196 Weight 111.2 kg 111.2 kg General appearance: PRESENT: no acute distress, obese, well-developed, well- nourished Head exam: PRESENT: atraumatic, normocephalic Eye exam: PRESENT: conjunctiva pink, EOMI, PERRLA. ABSENT: scleral icterus Ear exam: PRESENT: normal external ear exam Mouth exam: PRESENT: moist, tongue midline Neck exam: ABSENT: carotid bruit, JVD, lymphadenopathy, thyromegaly Respiratory exam: PRESENT: crackles - right base, symmetrical, unlabored. ABSENT: rales, rhonchi, wheezes Cardiovascular exam: PRESENT: RRR. ABSENT: diastolic murmur, rubs, systolic murmur Pulses: PRESENT: normal dorsalis pedis pul Vascular exam: PRESENT: normal capillary refill GI/Abdominal exam: PRESENT: normal bowel sounds, soft. ABSENT: distended, guarding, mass, organolmegaly, rebound, tenderness Rectal exam: PRESENT: deferred Extremities exam: PRESENT: full ROM. ABSENT: calf tenderness, clubbing, pedal edema Musculoskeletal exam: PRESENT: ambulatory Neurological exam: PRESENT: alert, oriented to person, oriented to place, oriented to time, CN II-XII grossly intact Psychiatric exam: PRESENT: appropriate affect, normal mood. ABSENT: homicidal ideation, suicidal ideation Skin exam: PRESENT: dry, intact, warm. ABSENT: cyanosis, rash Results Laboratory Results: 09/24/16 07:58 09/26/16 04:04 09/26/16 04:04 Sodium 143.5 Potassium 3.5 L Chloride 105 Carbon Dioxide 27 Anion Gap 12 BUN 25 H Creatinine 1.62 H Est GFR ( Amer) 51 L Est GFR (Non-Af Amer) 42 L Glucose 110 Calcium 10.4 H Magnesium 1.7 09/24/16 09/24/16 09/24/16 01:21 01:21 07:58 Creatine Kinase 610 H 387 H CK-MB (CK-2) 3.52 Troponin I < 0.012 09/24/16 09/24/16 09/24/16 07:58 13:50 13:50 Creatine Kinase 371 H CK-MB (CK-2) 3.25 3.96 Troponin I < 0.012 < 0.012 Impressions: Chest X-Ray 09/23/16 17:00 IMPRESSION: NO ACUTE RADIOGRAPHIC FINDING IN THE CHEST. Abdomen/Pelvis CT 09/23/16 17:46 IMPRESSION: NO ACUTE FINDING IN THE ABDOMEN OR PELVIS ON CT SCAN WITH IV CONTRAST. KUB X-Ray 09/25/16 00:00 IMPRESSION: Adequate appearing NG tube. Nonspecific distention of the transverse colon. New left pulmonary basilar opacity, nonspecific Assessment & Plan - Diagnosis (1) Acute respiratory failure with hypoxia and hypercapnia Is this a current diagnosis for this admission?: YesPlan: Improved off BIPAP on nasal cannula. (2) COPD exacerbation Is this a current diagnosis for this admission?: YesPlan: Continue nebulizer treatments. Nocturnal pulse oxymetry may benefit from CPAP at (3) Schizophrenia Qualifiers: Schizophrenia type: unspecified Qualified Code(s): F20.9 - Schizophrenia, unspecified Is this a current diagnosis for this admission?: YesPlan: Continue home medications (4) Expressive aphasia Is this a current diagnosis for this admission?: YesPlan: Chronic. Post CVA (5) Nausea & vomiting Qualifiers: Vomiting type: unspecified Vomiting Intractability: non-intractable Qualified Code(s): R11.2 - Nausea with vomiting, unspecified Is this a current diagnosis for this admission?: YesPlan: Patient has good bowel sounds. Xray shows constipation. D/C NG tube and dulcolax suppository. Zofran prn - Time Time Spent with patient: 25-34 minutes Critical Time spent with patient: 15-24 minutes Medications reviewed and adjusted accordingly: Yes Anticipated discharge: Home with Homehealth
[2016-09-26] MEDS: AZITHROMYCIN 500 MG in DEXTROSE 5%-WATER 250 ML IV SCH (18:49)
[2016-09-27] MEDS: IPRATROPIUM/ALBUTEROL 0.5-2.5 MG/3 ML AMPUL NEB SCH ×2 (01:08→07:55)
[2016-09-27 04:59] LABS: ABSOLUTE EOSINOPHILS # (AUTO) 0.8 10^3/uL (0.0-0.6); ABSOLUTE LYMPHOCYTES (AUTO) 3.2 10^3/uL (0.5-4.7); ABSOLUTE NEUT (AUTO) 4.9 10^3/uL (1.7-8.2); BASOPHILS % (AUTO) 0.4 % (0-2); HEMATOCRIT 41.7 % (37.9-51.0); HEMOGLOBIN 13.3 g/dL (13.5-17.0); HGB HCT DIFFERENCE -1.8; LYMPHOCYTES % (AUTO) 32.2 % (13-45); MEAN CORPUSCULAR HEMOGLOBIN 29.3 pg (27.0-33.4); MEAN CORPUSCULAR VOLUME 92 fl (80-97); MONOCYTES % (AUTO) 10.1 % (3-13); RED BLOOD COUNT 4.54 10^6/uL (4.35-5.55); RED CELL DISTRIBUTION WIDTH 13.7 % (11.5-14.0); SEGMENTED NEUTROPHILS % (AUTO) 49.3 % (42-78); WHITE BLOOD COUNT 9.9 10^3/uL (4.0-10.5)
[2016-09-27 05:20] LABS: ANION GAP 7 (5-19); BLOOD UREA NITROGEN 23 mg/dL (7-20); CALCIUM 9.2 mg/dL (8.4-10.2); CARBON DIOXIDE 26 mmol/L (22-30); CHLORIDE 105 mmol/L (98-107); CREATININE RESULT 1.62 mg/dL (0.52-1.25); GLUCOSE 97 mg/dL (75-110); SODIUM 137.6 mmol/L (137-145)
[2016-09-27] MEDS: HEPARIN SOD (PORCINE) 5,000 UNIT/ML 1 ML SYRINGE SUBCUT SCH (05:41)
[2016-09-27] MEDS ORDERED: CHLORPHENIRAMINE MALEATE 4 MG TABLET PO PRN (10:32)
[2016-09-27] MEDS ORDERED: ACETAMINOPHEN 325 MG TABLET PO PRN (10:42)
[2016-09-27] MEDS ORDERED: GUAIFENESIN 600 MG TABLET.SA PO PRN (10:42)
[2016-09-27] MEDS ORDERED: ESCITALOPRAM OXALATE 10 MG TABLET PO ONE (11:00)
[2016-09-27] MEDS ORDERED: OLANZAPINE 5 MG TABLET PO ONE (11:00)
[2016-09-27] MEDS ORDERED: TRAZODONE HCL 50 MG TABLET PO ONE (11:00)
[2016-09-27] MEDS ORDERED: METOPROLOL TARTRATE 25 MG TABLET PO ONE (11:00)
[2016-09-27] MEDS ORDERED: RIVAROXABAN 15 MG TABLET PO ONE (11:00)
[2016-09-27] MEDS: FLUTICASONE NASAL SPRAY 50 MCG/SPRY 120 SPRAY/16 GM NASL SCH (11:14)
[2016-09-27] MEDS: BUDESONIDE/FORMOTEROL 160-4.5 MCG 60 PUFF/6 GM MDI IH SCH (11:14)
[2016-09-27 11:55] VITALS: BP 146/94
--- NOTE | 2016-09-27 14:13 | DISCHARGE SUMMARY E ---
Discharge Summary NAME: DALY PORTILLO : 1945 AGE: 71Y ADMITTED: 09/23/2016 DISCHARGED: 09/27/2016 CODE STATUS: FULL CODE. PRIMARY CARE PROVIDER: Fidelina Oden MD OUTPATIENT TOLL REPAIRER CENTRAL OFFICE: Dr. Delio M.D. DISCHARGE DIAGNOSES: 1. COPD exacerbation. 2. Acute on chronic respiratory failure with hypoxia and hypercapnia. 3. Schizophrenia. 4. History of cerebrovascular accident. 5. Expressive aphasia secondary to CVA. 6. Ileus. DISCHARGE MEDICATIONS: Include: 1. Ventolin HFA 1 to 2 puffs inhalation q. 4 hours p.r.n. 2. Symbicort HFA two puffs inhalation q. 12 hours. 3. Lexapro 10 mg p.o. daily. 4. Lasix 20 mg p.o. weekly. 5. Metoprolol 25 mg p.o. b.i.d. 6. Olanzapine 5 mg p.o. daily. 7. Fish oil 1 gm p.o. daily. 8. Xarelto 50 mg p.o. daily. 9. Trazodone 200 mg p.o. daily. DIET: As tolerated. ACTIVITY: As tolerated. HISTORY OF PRESENT ILLNESS: The patient is a 71-year-old -[place] male with a past medical history of schizophrenia as well as CVA. The patient presented to the emergency department with a chief complaint of shortness of breath and cough. The patient had complained of a three day history of excessive oral airway secretions as well as a nonproductive cough, shortness of breath, tachypnea. The patient was treated symptomatically in the emergency department and was placed on BiPAP for as he was much improved. The patient had also admitted to having a poor appetite and given evidence of COPD exacerbation, was referred to the hospitalist for admission and management. HOSPITAL COURSE: The patient was admitted to continuous telemetry unit. The patient was placed on scheduled nebs as well as transitioned very quickly to nasal cannula. The patient completed five doses of Zithromax and overall symptoms had completely resolved. The patient denied any cough or sputum production. No persistent dyspnea. The patient was resumed on his home medications however the patient had an episode of vomiting and KUB was suggestive of ileus. The patient did have an NG tube passed and the patient had complete symptom resolution and was resumed back on a regular diet for which he has tolerated without issue. The patient's creatinine is at baseline and the patient feels ready for discharge. DIAGNOSTICS: Lab values are as follows: Hematology on 09/27/2016: WBC is 10.0; hemoglobin is 13.3; hematocrit is 41.7; platelet count is 173,000. Coagulation done on 09/23/2016: PT is 16.9, INR is 1.2. ABG done on 09/23/2016: pH of 7.3, pCO2 55.3, pO2 104.6, bicarb 26.8. Chemistries done on 09/27/2016: Sodium is 137; potassium is 4.0; chloride is 105; carbon dioxide is 26; BUN 23; creatinine is 1.6; glucose 97; calcium is 9.2; magnesium is 1.7, bilirubin 1.5, AST 31, ALT 38, alkaline phosphatase 55. CK 387, CK MB 3.25, troponin 0.012, BMP is 924. Total protein 8.7, albumin 4.6. Chest x-ray obtained on 09/23/2016 reveals no acute radiographic findings of the chest. CT of the abdomen and pelvis obtained on 09/23/2016 reveals no acute findings of abdomen and pelvis. KUB obtained on 09/25/2016 reveals nonspecific distension of the transverse colon, new left pulmonary basilar opacity. EKG obtained on 09/23/2016 reveals sinus rhythm. PHYSICAL EXAMINATION: GENERAL: On examination, the patient is a well-developed, reasonably nourished 71-year-old male who is awake, alert, and oriented to person, place, time, and situation. He is verbal conversational, and does not appear to be in any acute distress. VITAL SIGNS: Are as follows: Temperature is 98.3. Pulse 91. Respirations 15. Blood pressure is 146/94. Oxygen saturation 96% on room air. SKIN: Warm and dry. No rash. Not diaphoretic. HEENT: Pupils are equal, round, and reactive to light and accommodation. Conjunctivae pink. There is no JVP. CARDIOVASCULAR: Heart is regular. There is no murmur or rub. CHEST: Clear and symmetrical, unlabored. ABDOMEN: Soft, nontender, nondistended. BACK: No CVA tenderness or sacral edema. EXTREMITIES: No clubbing, cyanosis, edema. PSYCHIATRIC: Appropriate affect, pleasant mood. DISCHARGE PLANNIN. The patient will be discharged home to resume Home Health Services. 2. The patient is to follow up with the primary care provider within 1 to 2 weeks for hospital followup. Time spent on this discharge including assessment, plan, physical examination, patient education, is 25 minutes. DICTATING PHYSICIAN: MICHAELA ROMERO NP [id number] PHY#: [id number] ID: [id number] JOB#: [id number] ACCT: [id number] cc:Leno STEWART NP > MTDD
[2016-09-27] MEDS ORDERED: METOPROLOL TARTRATE 25 MG TABLET PO SCH (18:00)
[2016-09-28] MEDS ORDERED: RIVAROXABAN 15 MG TABLET PO SCH (10:00)
[2016-09-28] MEDS ORDERED: ESCITALOPRAM OXALATE 10 MG TABLET PO SCH (10:00)
[2016-09-28] MEDS ORDERED: TRAZODONE HCL 50 MG TABLET PO SCH (10:00)
[2016-09-28] MEDS ORDERED: OLANZAPINE 5 MG TABLET PO SCH (10:00)
[2016-10-03] MEDS ORDERED: FUROSEMIDE 20 MG TABLET PO SCH (10:00)
--- NOTE | 2016-10-14 07:45 | DISCHARGE SUMMARY E ---
Discharge Summary NAME: DALY PORTILLO : 1945 AGE: 71Y ADMITTED: 09/23/2016 DISCHARGED: 09/27/2016 ADDENDUM: The patient does not have any clinical or diagnostic evidence of CHF. DICTATING PHYSICIAN: MICHAELA ROMERO NP [id number] PHY#: [id number] ID: [id number] JOB#: [id number] ACCT: [id number] cc:DAVY GARCIA M.D., MICHAEL NP >
== END 2016-09-27 12:55 | disposition home or self-care (01) | DRG 189 ==
LOC: ER 16:49 → EH 22:09 → 4N 09-24 02:30
PROVIDERS: ADMIT Internal Medicine; ATTEND Internal Medicine
PROC: 5A09457 Assistance with Respiratory Ventilation, 24-96 Consecutive Hours, Continuous Positive Airway Pressure (ICD-10-PCS; principal; 2016-09-23)
PROC: 3E0F73Z Introduction of Anti-inflammatory into Respiratory Tract, Via Natural or Artificial Opening (ICD-10-PCS; 2016-09-24)
PROC: 0D9670Z Drainage of Stomach with Drainage Device, Via Natural or Artificial Opening (ICD-10-PCS; 2016-09-25)
DX: J96.21 Acute and chronic respiratory failure with hypoxia (principal); J44.1 Chronic obstructive pulmonary disease with (acute) exacerbation; K56.7 Ileus, unspecified; J96.22 Acute and chronic respiratory failure with hypercapnia; I69.320 Aphasia following cerebral infarction; I10 Essential (primary) hypertension; F25.9 Schizoaffective disorder, unspecified; E66.9 Obesity, unspecified; Z68.38 Body mass index [BMI] 38.0-38.9, adult; I25.2 Old myocardial infarction; Z79.899 Other long term (current) drug therapy; Z87.891 Personal history of nicotine dependence; Z83.6 Family history of other diseases of the respiratory system
CPT/HCPCS: 36415; 71010; 74000; 74177; 80048; 80053; 82550; 82553; 82803; 83735; 83880; 84484; 85025; 85610; 93005; 93010; 94640; 94660; 94667; 94668; 94799; 96374; 99285; J0456; J1644; J1956; J2930; J3490; J7060; J7620; L0120

== ENCOUNTER 2016-12-19 13:29 | Inpatient (IN) | payer MEDICARE ==
[2016-12-19] MEDS ORDERED: IPRATROPIUM/ALBUTEROL 0.5-2.5 MG/3 ML AMPUL NEB ONE ×5 (13:39→13:45)
[2016-12-19] MEDS ORDERED: FUROSEMIDE INJ/PF 100 MG/10 ML SDV IV ONE (13:45)
[2016-12-19] MEDS ORDERED: METHYLPREDNISOLONE INJ 125 MG/2 ML SDV IV ONE (13:45)
--- NOTE | 2016-12-19 13:51 | ER Document Report ---
ED General - General Chief Complaint: Breathing Difficulty Stated Complaint: DIFFICULTY BREATHING Time Seen by Provider: 12/19/16 13:39 Mode of Arrival: Wheelchair Information source: Relative Notes: 71-year-old male history of CHF COPD presents with shortness of breath of 1 week duration. Patient denies any fevers denies a productive cough. Patient is not on oxygen at home pt satting 74% on ra on arrival TRAVEL OUTSIDE OF THE [place] IN LAST 30 DAYS: No - HPI Onset: Last week Onset/Duration: Persistent Quality of pain: No pain Severity: Severe Pain Level: Denies Associated symptoms: Nonproductive cough, Shortness of breath Exacerbated by: Walking, Coughing Relieved by: Denies Similar symptoms previously: No Recently seen / treated by doctor: No - Related Data Allergies/Adverse Reactions: levofloxacin Adverse Reaction (Verified 12/19/16 13:31) Hives Past Medical History - Social History Smoking Status: Current Every Day Smoker Cigarette use (# per day): Yes Chew tobacco use (# tins/day): No Smoking Education Provided: No Family History: COPD - Past Medical History Cardiac Medical History: Reports: Hx Congestive Heart Failure, Hx Heart Attack, Hx Hypertension Pulmonary Medical History: Reports: Hx COPD Neurological Medical History: Reports: Hx Cerebrovascular Accident Renal/ Medical History: Denies: Hx Peritoneal Dialysis Psychiatric Medical History: Reports: Hx Schizoaffective Disorder Denies: Hx Depression Review of Systems - Review of Systems Notes: REVIEW OF SYSTEMS: CONSTITUTIONAL : Denies fever, chills, or sweats. Denies recent illness. EENT: Denies eye, ear, throat, or mouth pain or symptoms. Denies nasal or sinus congestion or discharge. Denies throat, tongue, or mouth swelling or difficulty swallowing. CARDIOVASCULAR: Denies chest pain. Denies palpitations or racing or irregular heart beat. Denies ankle edema. RESPIRATORY: severe diffiuclty breathing GASTROINTESTINAL: Denies abdominal pain or distention. Denies nausea, vomiting , or diarrhea. Denies blood in vomitus, stools, or per rectum. Denies black, tarry stools. Denies constipation. GENITOURINARY: Denies difficulty urinating, painful urination, burning, frequency, blood in urine, or discharge. MUSCULOSKELETAL: Denies back or neck pain or stiffness. Denies joint pain or swelling. SKIN: Denies rash, lesions or sores. HEMATOLOGIC : Denies easy bruising or bleeding. LYMPHATIC: Denies swollen, enlarged glands. NEUROLOGICAL: Denies confusion or altered mental status. Denies passing out or loss of consciousness. Denies dizziness or lightheadedness. Denies headache. Denies weakness or paralysis or loss of use of either side. Denies problems with gait or speech. Denies sensory loss, numbness, or tingling. Denies seizures. PSYCHIATRIC: Denies anxiety or stress. Denies depression, suicidal ideation, or homicidal ideation. ALL OTHER SYSTEMS REVIEWED AND NEGATIVE. Dictation was performed using [employer] voice recognition software PHYSICAL EXAMINATION: GENERAL: Well-appearing, well-nourished and in severe distress. HEAD: Atraumatic, normocephalic. EYES: Pupils equal round and reactive to light, extraocular movements intact, sclera anicteric, conjunctiva are normal. ENT: Nares patent, oropharynx clear without exudates. Moist mucous membranes. NECK: Normal range of motion, supple without lymphadenopathy LUNGS: coarse wheezing all thoruhgout resp distress HEART: Regular rate and rhythm without murmurs ABDOMEN: Soft, nontender, nondistended abdomen. No guarding, no rebound. No masses appreciated. Musculoskeletal: Normal range of motion, no pitting or edema. No cyanosis. NEUROLOGICAL: unable to speak PSYCH: Normal mood, normal affect. SKIN: Warm, Dry, normal turgor, no rashes or lesions noted. Physical Exam - Vital signs Vitals: Temp Pulse Resp BP Pulse Ox 98.8 F 128 H 48 H 144/101 H 74 L 12/19/16 13:32 12/19/16 13:32 12/19/16 13:32 12/19/16 13:32 12/19/16 13:32 Course - Re-evaluation Re-evalutation: 12/19/16 15:[address] Miller who requests I send ekg result to cardiology [facility] paged 12/19/16 15:20 [facility] believes it is demand ischemia , believes patient can be admitted at [facility] 12/19/16 15:24 Patient was satting 70% he was immediately placed on oxygen given duo nebs, on nonrebreather he is doing quite well states he is feeling better with thumbs up. Patient otherwise will be admitted to the hospitalist service to the [facility] severe respiratory distress - Vital Signs Vital signs: Temp Pulse Resp BP Pulse Ox 98.8 F 120 H 30 H 144/101 H 100 12/19/16 13:32 12/19/16 14:13 12/19/16 14:13 12/19/16 13:32 12/19/16 13:55 - Laboratory Result Diagrams: 12/19/16 13:44 12/19/16 13:44 Laboratory results interpreted by me: 12/19/16 12/19/16 13:44 13:44 Sodium 145.8 H Creatinine 1.70 H Est GFR ( Amer) 48 L Est GFR (Non-Af Amer) 40 L Glucose 178 H Calcium 10.6 H Direct Bilirubin 0.5 H Creatine Kinase 374 H CK-MB (CK-2) 9.32 H NT-Pro-B Natriuret Pep 6350 H Total Protein 9.0 H Critical Care Note - Critical Care Note Total time excluding time spent on procedures (mins): 38 Comments: 38 minutes of critical care time spent in direct contact evaluating and reevaluating the patient, treating symptoms, reviewing labs and studies and speaking with family and consultants excluding any procedures Discharge - Discharge Clinical Impression: Acute respiratory failure with hypoxia and hypercapnia, COPD exacerbation, Expressive aphasia, Severe respiratory distress, Elevated troponin Condition: Serious Disposition: ADMITTED INPATIENT Admitting Provider: Hospitalist Unit Admitted: IMCU Referrals: FIDEL HANDY DO [Primary Care Provider] - Follow up as needed
[2016-12-19 14:01] LABS: ABSOLUTE BASOPHILS # (AUTO) 0.1 10^3/uL (0.0-0.2); ABSOLUTE LYMPHOCYTES (AUTO) 1.1 10^3/uL (0.5-4.7); ABSOLUTE MONOCYTES (AUTO) 0.4 10^3/uL (0.1-1.4); ABSOLUTE NEUT (AUTO) 4.9 10^3/uL (1.7-8.2); BASOPHILS % (AUTO) 0.9 % (0-2); EOSINOPHILS % (AUTO) 0.6 % (0-6); HEMATOCRIT 49.1 % (37.9-51.0); HGB HCT DIFFERENCE -1.1; LYMPHOCYTES % (AUTO) 16.1 % (13-45); MEAN CORPUSCULAR HEMOGLOBIN 29.6 pg (27.0-33.4); MEAN CORPUSCULAR HGB CONC 32.6 g/dL (32.0-36.0); MEAN CORPUSCULAR VOLUME 91 fl (80-97); MONOCYTES % (AUTO) 6.8 % (3-13); RED BLOOD COUNT 5.42 10^6/uL (4.35-5.55); RED CELL DISTRIBUTION WIDTH 13.7 % (11.5-14.0); SEGMENTED NEUTROPHILS % (AUTO) 75.6 % (42-78); WHITE BLOOD COUNT 6.5 10^3/uL (4.0-10.5)
[2016-12-19 14:20] LABS: ALANINE AMINOTRANSFERASE 28 U/L (21-72); ALBUMIN 4.7 g/dL (3.5-5.0); ALKALINE PHOSPHATASE 70 U/L (38-126); ANION GAP 14 (5-19); ASPARTATE AMINO TRANSFERASE 40 U/L (17-59); BILIRUBIN,DIRECT 0.5 mg/dL (0.0-0.4); BILIRUBIN,TOTAL 0.6 mg/dL (0.2-1.3); BLOOD UREA NITROGEN 20 mg/dL (7-20); CALCIUM 10.6 mg/dL (8.4-10.2); CARBON DIOXIDE 27 mmol/L (22-30); CHLORIDE 105 mmol/L (98-107); CREATINE KINASE 374 U/L (55-170); GLUCOSE 178 mg/dL (75-110); POTASSIUM 4.5 mmol/L (3.6-5.0); SODIUM 145.8 mmol/L (137-145)
--- NOTE | 2016-12-19 14:42 | RADIOLOGY REPORT (SQ) ---
EXAM DESCRIPTION: CHEST SINGLE VIEW COMPLETED DATE/TIME: 12/19/2016 2:29 pm REASON FOR STUDY: copd chf , hypoxemia COMPARISON: 09/23/2016 NUMBER OF VIEWS: One view. TECHNIQUE: Single frontal radiographic view of the chest acquired. LIMITATIONS: None. FINDINGS: LUNGS AND PLEURA: No opacities, masses or pneumothorax. No pleural effusion. Attenuated bl ood vessels and flattened abhijit-diaphragms. MEDIASTINUM AND HILAR STRUCTURES: No masses. Contour normal. HEART AND VASCULAR STRUCTURES: Heart normal in size. Normal vasculature. BONES: No acute findings. HARDWARE: None in the chest. OTHER: No other significant finding. IMPRESSION: COPD. NO ACUTE RADIOGRAPHIC FINDING IN THE CHEST. TECHNICAL DOCUMENTATION: JOB ID: [id number] [employer]- All Rights Reserved
[2016-12-19 14:47] LABS: CREATINE KINASE MB 9.32 ng/mL (<4.55)
[2016-12-19 14:53] LABS: TROPONIN I 0.17 ng/mL
[2016-12-19] MEDS ORDERED: IPRATROPIUM/ALBUTEROL 0.5-2.5 MG/3 ML AMPUL NEB PRN (15:32)
[2016-12-19] MEDS ORDERED: ACETAMINOPHEN 325 MG TABLET PO PRN (15:32)
--- NOTE | 2016-12-19 16:06 | PDOC H&P ---
History of Present Illness Admission Date/PCP: FIDEL HANDY DO Patient complains of: Cough for one week increasing shortness of breath History of Present Illness: DALY PORTILLO SR is a 71 year old male medical history of myocardial infarction, CVA with expressive aphasia,schizoaffective disorder, COPD not on home oxygen, essential hypertension, congestive heart failure of unknown etiology, and continued tobacco abuse; presents to the emergency room accompanied by his sister with complaints of productive cough for the last 1 week and worsening shortness of breath. He denies fever chills. Sister states he did use one nebulizer treatment prior to his arrival here. He was noted to be quite tachypneic with respiratory rate in the 30s and room air oxygen saturation of 74%. He was noted to have diffuse expiratory wheezing throughout. He was given several DuoNeb nebulizer treatments and placed on BiPAP with improvement of his oxygenation. He denies any other symptoms. He denies chest pain, weight gain or fever. History is difficult due to dysarthria. He is able to shake his head yes and no appears to comprehend questions. His sister is at bedside giving some history. Patient lives with his 90-year-old mother is also his and MPOA. Past Medical History Cardiac Medical History: Reports: Congestive Heart Failure, Myocardial Infarction, Hypertension Pulmonary Medical History: Reports: Chronic Obstructive Pulmonary Disease (COPD) EENT Medical History: Reports: None Neurological Medical History: Reports: Ischemic CVA Endocrine Medical History: Reports: None Renal/ Medical History: Reports: Chronic Kidney Disease GI Medical History: Reports: None Musculoskeltal Medical History: Reports: None Psychiatric Medical History: Reports: Schizoaffective Disorder, Tobacco Dependency Denies: Depression Traumatic Medical History: Reports: None Infectious Medical History: Reports: None Past Surgical History Past Surgical History: Reports: None Social History Information Source: Patient, Relative, Emergency Med Personnel Lives with: Family Smoking Status: Current Every Day Smoker Cigarettes Packs Per Day: 0.5 Number of Years Smokin Frequency of Alcohol Use: None Hx Recreational Drug Use: No Drugs: None Hx Prescription Drug Abuse: No - Advance Directive Resuscitation Status: Full Code Surrogate healthcare decision maker:: SisterAbdullahi Family History Family History: CAD, COPD, Hypertension Parental Family History Reviewed: Yes Children Family History Reviewed: NA Sibling(s) Family History Reviewed.: Yes Medication/Allergy Allergies/Adverse Reactions: levofloxacin Adverse Reaction (Verified 12/19/16 13:31) Hives Review of Systems Constitutional: PRESENT: fatigue, weakness Eyes: ABSENT: visual disturbances Ears: ABSENT: hearing changes Cardiovascular: PRESENT: dyspnea on exertion Respiratory: PRESENT: cough, dyspnea, sputum Gastrointestinal: ABSENT: abdominal pain, constipation, diarrhea, hematemesis, hematochezia, nausea, vomiting Genitourinary: ABSENT: dysuria, hematuria Musculoskeletal: ABSENT: joint swelling Integumentary: ABSENT: rash, wounds Neurological: PRESENT: abnormal gait, abnormal speech, other - expressive aphasia from CVA Psychiatric: PRESENT: other - schizoaffective disorder Endocrine: ABSENT: cold intolerance, heat intolerance, polydipsia, polyuria Hematologic/Lymphatic: PRESENT: as per HPI Physical Exam Vital Signs: Temp Pulse Resp BP Pulse Ox 98.8 F 120 H 30 H 144/101 H 100 12/19/16 13:32 12/19/16 14:13 12/19/16 14:13 12/19/16 13:32 12/19/16 13:55 Intake & Output 12/18/16 12/19/16 12/20/16 06:59 06:59 06:59 Weight 75.9 kg General appearance: PRESENT: no acute distress, well-developed, well-nourished Head exam: PRESENT: atraumatic, normocephalic Eye exam: PRESENT: conjunctiva pink, EOMI, PERRLA. ABSENT: scleral icterus Ear exam: PRESENT: normal external ear exam Mouth exam: PRESENT: moist, tongue midline Neck exam: ABSENT: carotid bruit, JVD, lymphadenopathy, thyromegaly Respiratory exam: PRESENT: prolonged expiratory phas, symmetrical, wheezes - diffuse expiratory wheezing Cardiovascular exam: PRESENT: RRR. ABSENT: diastolic murmur, rubs, systolic murmur Pulses: PRESENT: normal dorsalis pedis pul Vascular exam: PRESENT: normal capillary refill GI/Abdominal exam: PRESENT: normal bowel sounds, soft. ABSENT: distended, guarding, mass, organolmegaly, rebound, tenderness Rectal exam: PRESENT: deferred Extremities exam: PRESENT: full ROM. ABSENT: calf tenderness, clubbing, pedal edema Musculoskeletal exam: PRESENT: ambulatory Neurological exam: PRESENT: alert, CN II-XII grossly intact, aphasic Psychiatric exam: PRESENT: flat affect Skin exam: PRESENT: dry, intact, warm. ABSENT: cyanosis, rash Results Laboratory Results: 12/19/16 13:44 12/19/16 13:44 12/19/16 12/19/16 13:44 13:44 WBC 6.5 RBC 5.42 Hgb 16.0 Hct 49.1 MCV 91 MCH 29.6 MCHC 32.6 RDW 13.7 Plt Count 217 Seg Neutrophils % 75.6 Lymphocytes % 16.1 Monocytes % 6.8 Eosinophils % 0.6 Basophils % 0.9 Absolute Neutrophils 4.9 Absolute Lymphocytes 1.1 Absolute Monocytes 0.4 Absolute Eosinophils 0.0 Absolute Basophils 0.1 Sodium 145.8 H Potassium 4.5 Chloride 105 Carbon Dioxide 27 Anion Gap 14 BUN 20 Creatinine 1.70 H Est GFR ( Amer) 48 L Est GFR (Non-Af Amer) 40 L Glucose 178 H Calcium 10.6 H Total Bilirubin 0.6 AST 40 ALT 28 Alkaline Phosphatase 70 Total Protein 9.0 H Albumin 4.7 12/19/16 12/19/16 13:44 13:44 Creatine Kinase 374 H CK-MB (CK-2) 9.32 H Troponin I 0.170 NT-Pro-B Natriuret Pep 6350 H Impressions: Chest X-Ray 12/19/16 13:39 IMPRESSION: COPD. NO ACUTE RADIOGRAPHIC FINDING IN THE CHEST. Assessment & Plan - Diagnosis (1) Acute respiratory failure with hypoxia and hypercapnia Is this a current diagnosis for this admission?: Yes Plan: BIPAP, nebulizers, IV steroids, inhalers and broad spectrum antibiotic therapy. Most likely secondary to acute bronchitis. Chest xray shows no pneumonia (2) COPD exacerbation Is this a current diagnosis for this admission?: Yes Plan: As above (3) Elevated troponin Is this a current diagnosis for this admission?: Yes Plan: Most likely secondary to COPD exacerbation and myocardial strain from hypoxemia (4) Expressive aphasia Is this a current diagnosis for this admission?: Yes Plan: OLD CVA (5) Schizophrenia Qualifiers: Schizophrenia type: unspecified Qualified Code(s): F20.9 - Schizophrenia, unspecified Is this a current diagnosis for this admission?: Yes Plan: Continue home medication (6) CHF (congestive heart failure) Qualifiers: Congestive heart failure type: unspecified congestive heart failure type Is this a current diagnosis for this admission?: Yes Plan: Will obtain transthoracic echo. Patient has elevated NTBNP of 6350. No peripheral edema or JVD noted on exam. - Time Time Spent: 50 to 70 Minutes Critical Time spent with patient: 25-34 minutes Smoking Cessation Education: 3 to 10 minutes Medications reviewed and adjusted accordingly: Yes
[2016-12-19 17:36] LABS: APPEARANCE,URINE CLEAR; BILIRUBIN,URINE NEGATIVE (NEGATIVE); GLUCOSE, URINE NEGATIVE (NEGATIVE); KETONES,URINE NEGATIVE (NEGATIVE); LEUKOCYTE ESTERASE,URINE NEGATIVE (NEGATIVE); NITRITE,URINE NEGATIVE (NEGATIVE); PROTEIN,URINE 100 mg/dL (NEGATIVE); URINE SPECIFIC GRAVITY 1.009; UROBILINOGEN,URINE NEGATIVE mg/dL (<2.0)
[2016-12-19] MEDS ORDERED: AZITHROMYCIN 500 MG in DEXTROSE 5%-WATER 250 ML IV SCH ×2 (18:00→22:20)
--- NOTE | 2016-12-19 18:26 | EKG REPORT ---
SEVERITY:- ABNORMAL ECG - SINUS TACHYCARDIA LAD, CONSIDER LAFB OR INFERIOR INFARCT ANTEROLATERAL INFARCT, AGE INDETERMINATE PROLONGED QT INTERVAL : Confirmed by: Rigo Arredondo MD 19-Dec-2016 18:26:00
[2016-12-19 19:17] LABS: ARTERIAL BLOOD BASE EXCESS -2.2 mmol/L; ARTERIAL BLOOD O2 SATURATION 94.9 % (94-98)
[2016-12-19] MEDS: IPRATROPIUM/ALBUTEROL 0.5-2.5 MG/3 ML AMPUL NEB SCH (19:55)
[2016-12-19] MEDS ORDERED: NITROGLYCERIN/D5W 50 MG/250 ML RTUINJ IV PRN (20:05)
[2016-12-19] MEDS ORDERED: MORPHINE SULFATE 10 MG/ML INJ IV PRN (20:05)
[2016-12-19] MEDS ORDERED: METOPROLOL TARTRATE PF/INJ 5 MG/5 ML SDV IV ONE (20:05)
[2016-12-19] MEDS ORDERED: ATORVASTATIN CALCIUM 80 MG TABLET PO ONE (20:23)
[2016-12-19] MEDS ORDERED: HEPARIN SOD (PORCINE) 5,000 UNIT/ML 1 ML SYRINGE SUBCUT SCH (22:00)
[2016-12-19] MEDS ORDERED: GUAIFENESIN 600 MG TABLET.SA PO SCH (22:00)
[2016-12-19] MEDS ORDERED: FAMOTIDINE 20 MG TABLET PO SCH (22:00)
[2016-12-19] MEDS ORDERED: RIVAROXABAN 15 MG TABLET PO SCH (22:00)
--- NOTE | 2016-12-19 22:01 | RADIOLOGY REPORT (SQ) ---
EXAM DESCRIPTION: CTA CHEST COMPLETED DATE/TIME: 12/19/2016 9:31 pm REASON FOR STUDY: pe? chest pain COMPARISON: 06/22/2011 TECHNIQUE: CT scan of the chest performed using helical scanning technique with dynamic intravenous contrast injection. Images reviewed with lung, soft tissue and bone windows. Reconstructed coronal and sagittal MPR images reviewed. Additional 3 dimensional post-processing performed to develop Maximal Intensity Projection images (NM P). All images stored on PACS. All CT scanners at this facility use dose modulation, iterative reconstruction, and/or weight based d osing when appropriate to reduce radiation dose to as low as reasonably achievable (ALARA). [facility]: Dose Right [facility]: CareDose [facility]: Dose Right [facility]: Teradose 4D [facility]: [facility] CONTRAST TYPE AND DOSE: contrast/concentration: Isovue 370.00 mg/ml; Total Contrast Delivered: 82.0 ml; Total Saline Delivered: 55.0 ml Contrast bolus optimized for the pulmonary arteries. Not diagnostic for the aorta. RENAL FUNCTION: BUN 20 creatinine 1.7 RADIATION DOSE: Up-to-date CT equipment and radiation dose reduction techniques were employed. CTDIv ol: 14.8 mGy. DLP: 543 mGy-cm. . LIMITATIONS: Mild breathing motion artifact. FINDINGS: LUNGS AND PLEURA: No pneumothorax. Bronchial wall thickening and mild segmental airway mu cus plugging. No consolidation or pleural effusion. AORTA AND GREAT VESSELS: No aneurysm. Contrast bolus not optimized for the aorta. HEART: No pericardial effusion. No significant coronary artery calcifications. PULMONARY ARTERIES: No emboli visualized in the main pulmonary arteries or the segmental branches. HILAR AND MEDIASTINAL STRUCTURES: Similar mediastinal nodes. HARDWARE: None in the chest. UPPER ABDOMEN: No acute findings. Limited exam. THYROID AND OTHER SOFT TISSUES: No masses. No adenopathy. BONES: No acute or significant finding. 3D MIPS: Confirm above findings. OTHER: No other significant finding. IMPRESSION: Bronchial wall thickening and mild segmental airway mucus plugging. No consolidation or pleural effusion. No emboli visualized in the main pulmonary arteries or the segmental branches. COMMENT: Quality ID # [id number]: Final reports with documentation of one or more dose reduction techniques (e.g., Automated exposure control, adjustment of the mA and/or kV according to patient size, use of iterative reconstruction technique) TECHNICAL DOCUMENTATION: JOB ID: [id number]- All Rights Reserved
[2016-12-19] MEDS: METHYLPREDNISOLONE INJ 125 MG/2 ML SDV IV SCH (22:23)
[2016-12-19] MEDS: FAMOTIDINE 20 MG TABLET PO SCH (22:24)
[2016-12-19] MEDS: METOPROLOL TARTRATE 25 MG TABLET PO SCH (22:24)
[2016-12-19] MEDS: CEFTRIAXONE 1 GM/D5W RTU 1 GM/50 ML RTUPB IV SCH (22:25)
[2016-12-19] MEDS ORDERED: AZITHROMYCIN INJ 500 MG VIAL IV ONE (22:37)
--- NOTE | 2016-12-19 22:51 | EKG REPORT ---
SEVERITY:- ABNORMAL ECG - SINUS TACHYCARDIA LEFT ANTERIOR FASCICULAR BLOCK ANTEROLATERAL INFARCT, AGE INDETERMINATE PROLONGED QT INTERVAL : Confirmed by: Rigo Arredondo MD 19-Dec-2016 22:50:01
[2016-12-20] MEDS: IPRATROPIUM/ALBUTEROL 0.5-2.5 MG/3 ML AMPUL NEB SCH ×4 (02:15→20:14)
[2016-12-20 02:25] LABS: ABSOLUTE LYMPHOCYTES (AUTO) 0.6 10^3/uL (0.5-4.7); ABSOLUTE MONOCYTES (AUTO) 0.1 10^3/uL (0.1-1.4); ABSOLUTE NEUT (AUTO) 5.7 10^3/uL (1.7-8.2); BASOPHILS % (AUTO) 0.1 % (0-2); HEMATOCRIT 46.8 % (37.9-51.0); HEMOGLOBIN 15.2 g/dL (13.5-17.0); HGB HCT DIFFERENCE -1.2; LYMPHOCYTES % (AUTO) 9.1 % (13-45); MEAN CORPUSCULAR HEMOGLOBIN 29.7 pg (27.0-33.4); MEAN CORPUSCULAR HGB CONC 32.4 g/dL (32.0-36.0); MEAN CORPUSCULAR VOLUME 92 fl (80-97); MONOCYTES % (AUTO) 1.9 % (3-13); RED BLOOD COUNT 5.11 10^6/uL (4.35-5.55); RED CELL DISTRIBUTION WIDTH 13.7 % (11.5-14.0); SEGMENTED NEUTROPHILS % (AUTO) 88.9 % (42-78); WHITE BLOOD COUNT 6.5 10^3/uL (4.0-10.5)
[2016-12-20 02:33] LABS: ANION GAP 16 (5-19); BLOOD UREA NITROGEN 20 mg/dL (7-20); CALCIUM 10.3 mg/dL (8.4-10.2); CARBON DIOXIDE 25 mmol/L (22-30); CHLORIDE 100 mmol/L (98-107); CREATININE RESULT 1.82 mg/dL (0.52-1.25); GLUCOSE 236 mg/dL (75-110); POTASSIUM 4.9 mmol/L (3.6-5.0); SODIUM 141.2 mmol/L (137-145)
[2016-12-20 02:50] LABS: TROPONIN I 0.106 ng/mL
[2016-12-20] MEDS: METHYLPREDNISOLONE INJ 125 MG/2 ML SDV IV SCH ×3 (05:18→21:09)
[2016-12-20] MEDS ORDERED: DEXTROSE 40% GEL 15 GM TUBE PO PRN ×2 (07:51)
[2016-12-20] MEDS ORDERED: INSULIN LISPRO 100 UNIT/ML 3 ML VIAL SUBCUT PRN (07:51)
[2016-12-20] MEDS ORDERED: GLUCAGON,HUMAN RECOMB 1 MG INJ IM PRN (07:51)
[2016-12-20] MEDS ORDERED: DEXTROSE 50%-WATER 25 GM/50 ML DISP.SYRIN IV PRN ×2 (07:51)
[2016-12-20] MEDS ORDERED: METOPROLOL TARTRATE PF/INJ 5 MG/5 ML SDV IV ONE (08:14)
[2016-12-20] MEDS: NORMAL SALINE 1000 ML 1,000 ML IV PRN ×2 (08:29→13:19)
[2016-12-20 08:31] LABS: ARTERIAL BLOOD BASE EXCESS -3.2 mmol/L; ARTERIAL BLOOD O2 SATURATION 97.9 % (94-98)
--- NOTE | 2016-12-20 08:45 | PDOC PROGRESS REPORT ---
Subjective Progress Note for:: 12/20/16 Subjective:: Patient is seen on morning rounds. He was transferred to the ICU overnight secondary to bump in his troponin and chest pain. He is presently on BIPAP. He is mildly tachypneic at rest. He denies any chest pain or dyspnea. 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 He is unable to complete review of systems. He is tachycardic in the 120's at rest and hypertensive with a blood pressure of 171/102. No family is presently at the bedside. Dr Licona, airplane woodworker, is at the bedside case is discussed with him. CTA done overnight showed no PE, infiltrates or effusions. Physical Exam Vital Signs: Temp Pulse Resp BP Pulse Ox 97.0 F 108 H 24 H 121/96 H 98 12/20/16 04:40 12/20/16 02:15 12/20/16 06:00 12/20/16 05:51 12/20/16 06:00 Intake & Output 12/19/16 12/20/16 12/21/16 06:59 06:59 06:59 Intake Total 453 Output Total 400 50 Balance 53 -50 Weight 75.9 kg General appearance: PRESENT: mild distress, thin, well-developed, well-nourished , other - on BIPAP Head exam: PRESENT: atraumatic, normocephalic Eye exam: PRESENT: conjunctiva pink, EOMI, PERRLA. ABSENT: scleral icterus Ear exam: PRESENT: normal external ear exam Mouth exam: PRESENT: moist, tongue midline Teeth exam: PRESENT: edentulous Neck exam: ABSENT: carotid bruit, JVD, lymphadenopathy, thyromegaly Respiratory exam: PRESENT: accessory muscle use, tachypnea, wheezes Cardiovascular exam: PRESENT: RRR, +S1, +S2, tachycardia Vascular exam: PRESENT: normal capillary refill GI/Abdominal exam: PRESENT: distended, firm, hypoactive bowel sounds Rectal exam: PRESENT: deferred Musculoskeletal exam: PRESENT: full ROM - left sided weakness, other Neurological exam: PRESENT: alert, awake, CN II-XII grossly intact, aphasic Psychiatric exam: PRESENT: anxious, appropriate affect. ABSENT: homicidal ideation, suicidal ideation Skin exam: PRESENT: dry, intact, warm. ABSENT: cyanosis, rash Results Laboratory Results: 12/20/16 02:13 12/20/16 02:13 12/19/16 12/19/16 12/20/16 16:45 19:00 02:13 WBC 6.5 RBC 5.11 Hgb 15.2 Hct 46.8 MCV 92 MCH 29.7 MCHC 32.4 RDW 13.7 Plt Count 196 Seg Neutrophils % 88.9 H Lymphocytes % 9.1 L Monocytes % 1.9 L Eosinophils % 0.0 Basophils % 0.1 Absolute Neutrophils 5.7 Absolute Lymphocytes 0.6 Absolute Monocytes 0.1 Absolute Eosinophils 0.0 Absolute Basophils 0.0 Carbonic Acid 2.09 H HCO3/H2CO3 Ratio 13:1 ABG pH 7.22 L ABG pCO2 69.4 H* ABG pO2 90.3 ABG HCO3 27.5 H ABG O2 Saturation 94.9 ABG Base Excess -2.2 FiO2 3.5L Sodium Potassium Chloride Carbon Dioxide Anion Gap BUN Creatinine Est GFR ( Amer) Est GFR (Non-Af Amer) Glucose Calcium Urine Color YELLOW Urine Appearance CLEAR Urine pH 5.0 Ur Specific [employer] 1.009 Urine Protein 100 H Urine Glucose (UA) NEGATIVE Urine Ketones NEGATIVE Urine Blood SMALL H Urine Nitrite NEGATIVE Ur Leukocyte Esterase NEGATIVE Urine WBC (Auto) 1 Urine RBC (Auto) 0 12/20/16 02:13 WBC RBC Hgb Hct MCV MCH MCHC RDW Plt Count Seg Neutrophils % Lymphocytes % Monocytes % Eosinophils % Basophils % Absolute Neutrophils Absolute Lymphocytes Absolute Monocytes Absolute Eosinophils Absolute Basophils Carbonic Acid HCO3/H2CO3 Ratio ABG pH ABG pCO2 ABG pO2 ABG HCO3 ABG O2 Saturation ABG Base Excess FiO2 Sodium 141.2 Potassium 4.9 Chloride 100 Carbon Dioxide 25 Anion Gap 16 BUN 20 Creatinine 1.82 H Est GFR ( Amer) 45 L Est GFR (Non-Af Amer) 37 L Glucose 236 H Calcium 10.3 H Urine Color Urine Appearance Urine pH Ur Specific [employer] Urine Protein Urine Glucose (UA) Urine Ketones Urine Blood Urine Nitrite Ur Leukocyte Esterase Urine WBC (Auto) Urine RBC (Auto) 12/19/16 12/20/16 12/20/16 19:55 02:13 07:33 Troponin I 0.183 0.106 0.069 NT-Pro-B Natriuret Pep 7190 H Impressions: Chest/Abdomen CTA 12/19/16 00:00 IMPRESSION: Bronchial wall thickening and mild segmental airway mucus plugging. No consolidation or pleural effusion. No emboli visualized in the main pulmonary arteries or the segmental branches. Chest X-Ray 12/19/16 13:39 IMPRESSION: COPD. NO ACUTE RADIOGRAPHIC FINDING IN THE CHEST. Assessment & Plan - Diagnosis (1) Acute respiratory failure with hypoxia and hypercapnia Is this a current diagnosis for this admission?: Yes Plan: BIPAP, nebulizers, IV steroids, inhalers and broad spectrum antibiotic therapy. Most likely secondary to acute bronchitis. Chest xray shows no pneumonia. CTA showed no PE, no infiltrates or pneumonia. Sister was called and updated. Discussed possibility of intubation and then difficulty of extubating patient with severe COPD. Discussed possibility of tracheostomy and residential ventilator care. She will discuss with mother and brother and be in shortly (2) COPD exacerbation Is this a current diagnosis for this admission?: Yes Plan: As above (3) Elevated troponin Is this a current diagnosis for this admission?: Yes Plan: Most likely secondary to COPD exacerbation and myocardial strain from hypoxemia Presently trending downward (4) Expressive aphasia Is this a current diagnosis for this admission?: Yes Plan: OLD CVA (5) Schizophrenia Qualifiers: Schizophrenia type: unspecified Qualified Code(s): F20.9 - Schizophrenia, unspecified Is this a current diagnosis for this admission?: Yes Plan: Continue home medication Zyprexa (6) CHF (congestive heart failure) Qualifiers: Congestive heart failure type: unspecified congestive heart failure type Is this a current diagnosis for this admission?: Yes Plan: Will obtain transthoracic echo. Patient has elevated NTBNP of 6350. No peripheral edema or JVD noted on exam. (7) Hyperglycemia Is this a current diagnosis for this admission?: Yes Plan: Patient is receiving IV steroids, will cover with sliding scale insulin coverage. Will check HBA1C (8) [employer] current use of anticoagulant Is this a current diagnosis for this admission?: Yes Plan: Patient is on xarelto since CVA (9) Tobacco abuse Is this a current diagnosis for this admission?: Yes Plan: Nicotine patch - Time Time Spent with patient: 25-34 minutes Critical Time spent with patient: 25-34 minutes Medications reviewed and adjusted accordingly: Yes
[2016-12-20] MEDS: FAMOTIDINE 20 MG TABLET PO SCH (09:02)
[2016-12-20] MEDS: GUAIFENESIN 600 MG TABLET.SA PO SCH ×2 (09:02→21:10)
[2016-12-20] MEDS: METOPROLOL TARTRATE 25 MG TABLET PO SCH (09:02)
[2016-12-20] MEDS ORDERED: PROPOFOL 100 ML IV ONE (09:12)
[2016-12-20] MEDS ORDERED: PHARMACY COMMUNICATION ORDER MC NR (09:30)
[2016-12-20] MEDS ORDERED: ACETAMINOPHEN SOLN 325 MG/10.15 ML UDCUP NG PRN (09:31)
[2016-12-20] MEDS ORDERED: FAMOTIDINE 20 MG TABLET NG SCH (10:00)
[2016-12-20] MEDS ORDERED: TIOTROPIUM BROMIDE DPI 5 CAP/KIT (18 MCG/CAP) IH SCH (10:00)
[2016-12-20] MEDS ORDERED: DEXTROSE 40% GEL 15 GM TUBE NG PRN ×2 (10:00)
[2016-12-20] MEDS ORDERED: ESCITALOPRAM OXALATE 10 MG TABLET PO SCH (10:00)
[2016-12-20] MEDS ORDERED: OLANZAPINE 5 MG TABLET PO SCH (10:00)
[2016-12-20] MEDS ORDERED: NICOTINE 21 MG/24 HR PATCH.TD24 TD SCH (10:00)
[2016-12-20] MEDS ORDERED: OLANZAPINE 5 MG TABLET NG SCH (10:00)
[2016-12-20] MEDS ORDERED: ESCITALOPRAM OXALATE 10 MG TABLET NG SCH (10:00)
--- NOTE | 2016-12-20 10:29 | PDOC CONSULTATION ---
Consultation Consult Date: 12/20/16 Attending physician:: RED BRITO Consult reason:: acute/chronic resp failure History of Present Illness Admission Date/PCP: 12/19/16 15:32 FIDEL HANDY DO History of Present Illness: DALY PORTLILO SR is a 71 year old male with history of COPD not on home oxygen and continued tobacco abuse.He presented to the emergency room with complaints of productive cough for the last 1 week and worsening shortness of breath. He denies fever chills. Sister states he did use one nebulizer treatment prior to his arrival here. He was noted to be quite tachypneic with respiratory rate in the 30s and room air oxygen saturation of 74%. He was noted to have diffuse expiratory wheezing throughout. He was given several DuoNeb nebulizer treatments and placed on BiPAP with improvement of his oxygenation. History is difficult due to exspressive aphagia He is able to shake his head yes and no appears to comprehend questions. His current abg increasing hypercapnia despite bipap;patient shakes his head in agreement with intubation. Past Medical History Cardiac Medical History: Reports: Congestive Heart Failure, Myocardial Infarction, Hypertension Pulmonary Medical History: Reports: Chronic Obstructive Pulmonary Disease (COPD) EENT Medical History: Reports: None Neurological Medical History: Reports: Ischemic CVA Endocrine Medical History: Reports: None Renal/ Medical History: Reports: Chronic Kidney Disease GI Medical History: Reports: None Musculoskeltal Medical History: Reports: None Psychiatric Medical History: Reports: Schizoaffective Disorder, Tobacco Dependency Denies: Depression Traumatic Medical History: Reports: None Infectious Medical History: Reports: None Past Surgical History Past Surgical History: Reports: None Social History Information [facility] Lives with: Family Smoking Status: Former Smoker Cigarettes Packs Per Day: 1 Number of Years Smokin Last Time Smoked: 2000 Passive smoke exposure as: Both Frequency of Alcohol Use: None Hx Recreational Drug Use: No Drugs: None Hx Prescription Drug Abuse: No - Advance Directive Resuscitation Status: Full Code Family History Family History: CAD, COPD, Hypertension Parental Family History Reviewed: No Children Family History Reviewed: No Sibling(s) Family History Reviewed.: No Medication/Allergy Home Medications: Albuterol Sulfate [Albuterol Sulfate 2.5mg/3 mL] 1 vial IH RTQ4HP PRN 12/19/16 Albuterol Sulfate [Proair HFA] 2 puff IH Q4HP PRN 12/19/16 Budesonide [Pulmicort] 1 mg IH RTQ12 12/19/16 Escitalopram Oxalate [Lexapro 10 mg Tablet] 10 mg PO DAILY 12/19/16 Furosemide [Lasix 20 mg Tablet] 20 mg PO MO@1000 12/19/16 Metoprolol Tartrate [Lopressor 25 mg Tablet] 25 mg PO Q12 12/19/16 Olanzapine [Zyprexa 5 mg Tablet] 5 mg PO DAILY 12/19/16 [place]-3 Acid Ethyl Esters [Lovaza 1 gm Capsule] 1 gm PO DAILY 12/19/16 Rivaroxaban [Xarelto 15 mg Tablet] 15 mg PO QPM 12/19/16 Trazodone HCl [Desyrel] 100 mg PO QHS 12/19/16 Allergies/Adverse Reactions: levofloxacin Adverse Reaction (Verified 12/19/16 13:31) Hives Review of Systems ROS unobtainable: Other - failing respiratory status Physical Exam Vital Signs: Temp Pulse Resp BP Pulse Ox 97.0 F 108 H 24 H 121/96 H 98 12/20/16 04:40 12/20/16 02:15 12/20/16 06:00 12/20/16 05:51 12/20/16 06:00 Intake & Output 12/19/16 12/20/16 12/21/16 06:59 06:59 06:59 Intake Total 453 Output Total 400 50 Balance 53 -50 Weight 75.9 kg General appearance: PRESENT: disheveled, mild distress, well-developed, well- nourished Head exam: PRESENT: atraumatic, normocephalic Eye exam: PRESENT: conjunctiva pale, EOMI Mouth exam: PRESENT: dry mucosa, neck supple, tongue midline Neck exam: ABSENT: carotid bruit, JVD, lymphadenopathy, thyromegaly Respiratory exam: PRESENT: decreased breath sounds, prolonged expiratory phas, rhonchi, symmetrical, tachypnea, wheezes Cardiovascular exam: PRESENT: RRR, +S1, +S2, tachycardia Pulses: PRESENT: normal radial pulses GI/Abdominal exam: PRESENT: distended, other - tympanitic Rectal exam: PRESENT: deferred Gentrourinary exam: PRESENT: indwelling catheter Musculoskeletal exam: PRESENT: normal inspection Neurological exam: PRESENT: awake Psychiatric exam: PRESENT: normal mood Skin exam: PRESENT: dry, warm Results Laboratory Results: 12/20/16 02:13 12/20/16 02:13 12/19/16 12/19/16 12/20/16 16:45 19:00 02:13 WBC 6.5 RBC 5.11 Hgb 15.2 Hct 46.8 MCV 92 MCH 29.7 MCHC 32.4 RDW 13.7 Plt Count 196 Seg Neutrophils % 88.9 H Lymphocytes % 9.1 L Monocytes % 1.9 L Eosinophils % 0.0 Basophils % 0.1 Absolute Neutrophils 5.7 Absolute Lymphocytes 0.6 Absolute Monocytes 0.1 Absolute Eosinophils 0.0 Absolute Basophils 0.0 Carbonic Acid 2.09 H HCO3/H2CO3 Ratio 13:1 ABG pH 7.22 L ABG pCO2 69.4 H* ABG pO2 90.3 ABG HCO3 27.5 H ABG O2 Saturation 94.9 ABG Base Excess -2.2 FiO2 3.5L Sodium Potassium Chloride Carbon Dioxide Anion Gap BUN Creatinine Est GFR ( Amer) Est GFR (Non-Af Amer) Glucose Calcium Urine Color YELLOW Urine Appearance CLEAR Urine pH 5.0 Ur Specific [place] 1.009 Urine Protein 100 H Urine Glucose (UA) NEGATIVE Urine Ketones NEGATIVE Urine Blood SMALL H Urine Nitrite NEGATIVE Ur Leukocyte Esterase NEGATIVE Urine WBC (Auto) 1 Urine RBC (Auto) 0 12/20/16 02:13 WBC RBC Hgb Hct MCV MCH MCHC RDW Plt Count Seg Neutrophils % Lymphocytes % Monocytes % Eosinophils % Basophils % Absolute Neutrophils Absolute Lymphocytes Absolute Monocytes Absolute Eosinophils Absolute Basophils Carbonic Acid HCO3/H2CO3 Ratio ABG pH ABG pCO2 ABG pO2 ABG HCO3 ABG O2 Saturation ABG Base Excess FiO2 Sodium 141.2 Potassium 4.9 Chloride 100 Carbon Dioxide 25 Anion Gap 16 BUN 20 Creatinine 1.82 H Est GFR ( Amer) 45 L Est GFR (Non-Af Amer) 37 L Glucose 236 H Calcium 10.3 H Urine Color Urine Appearance Urine pH Ur Specific [place] Urine Protein Urine Glucose (UA) Urine Ketones Urine Blood Urine Nitrite Ur Leukocyte Esterase Urine WBC (Auto) Urine RBC (Auto) 12/19/16 12/20/16 19:55 02:13 Troponin I 0.183 0.106 NT-Pro-B Natriuret Pep 7190 H Impressions: Chest/Abdomen CTA 12/19/16 00:00 IMPRESSION: Bronchial wall thickening and mild segmental airway mucus plugging. No consolidation or pleural effusion. No emboli visualized in the main pulmonary arteries or the segmental branches. Chest X-Ray 12/19/16 13:39 IMPRESSION: COPD. NO ACUTE RADIOGRAPHIC FINDING IN THE CHEST. Assessment & Plan - Diagnosis (1) Acute respiratory failure with hypoxia and hypercapnia Is this a current diagnosis for this admission?: Yes Plan: patient needs intubation (2) COPD exacerbation Is this a current diagnosis for this admission?: Yes Plan: continue bronchodialators (3) Expressive aphasia Is this a current diagnosis for this admission?: Yes - Time Critical Time spent with patient: 35 or more minutes - 60 min
[2016-12-20] MEDS ORDERED: NORMAL SALINE 1000 ML 1,000 ML IV ONE (10:38)
[2016-12-20] MEDS ORDERED: LORAZEPAM INJ 2 MG/1 ML VIAL ONE (10:40)
[2016-12-20] MEDS ORDERED: OLANZAPINE INJ/PF 10 MG SDV IM ONE (10:43)
[2016-12-20 11:22] LABS: ARTERIAL BLOOD BASE EXCESS -7.2 mmol/L; ARTERIAL BLOOD O2 SATURATION 99.3 % (94-98)
--- NOTE | 2016-12-20 11:22 | RADIOLOGY REPORT (SQ) ---
EXAM DESCRIPTION: CHEST SINGLE VIEW COMPLETED DATE/TIME: 12/20/2016 10:54 am REASON FOR STUDY: s/p intubation and NGT placement. COMPARISON: 12/19/2016 EXAM PARAMETERS: NUMBER OF VIEWS: One view. TECHNIQUE: Single frontal radiographic view of the chest acquired. RADIATION DOSE: NA LIMITATIONS: None. FINDINGS: LUNGS AND PLEURA: The lungs are hyperexpanded. There is no infiltrate or effusion. No ma ss is seen. MEDIASTINUM AND HILAR STRUCTURES: No masses. Contour normal. HEART AND VASCULAR STRUCTURES: Heart normal in size. Normal vasculature. BONES: No acute findings. HARDWARE: An endotracheal tube has its tip 4 cm above the silvino. An NG tube has its tip in the bhavana on of the gastric fundus. OTHER: No other significant finding. IMPRESSION: Tube placement as described. There is no acute pulmonary disease. TECHNICAL DOCUMENTATION: JOB ID: [id number]
[2016-12-20] MEDS ORDERED: NOREPINEPHRINE BITARTRATE INJ/PF 4 MG/4 ML SDV IV ONE (13:04)
[2016-12-20] MEDS ORDERED: DEXTROSE 5%-WATER 250 ML with NOREPINEPHRINE BITARTRATE 4 MG IV PRN ×2 (13:06)
--- NOTE | 2016-12-20 13:12 | Progress Note ---
Provider Note Provider Note: 0900 Patient with worsening hypercapnea on ABG. After lengthy discussion with family they would like to proceed with intubation. Patient has been intubated 2 years ago when he had his CVA. He ended up with a tracheostomy for a short time. Patient would like to proceed with aggressive care. Patient was intubated without difficulty by anesthesia. NG tube placed by nursing. Started on Iv propofol for sedation. Blood pressure dropped IV levophed started. Will titrate.
[2016-12-20] MEDS ORDERED: BISACODYL 10 MG SUPP.RECT PR ONE ×2 (13:36→14:00)
[2016-12-20] MEDS ORDERED: NA PHOS,M-B/NA PHOS,DI-BA (ADULT) 133 ML ENEMA PR PRN (13:37)
[2016-12-20] MEDS ORDERED: SUCCINYLCHOLINE CHLORIDE INJ 200 MG/10 ML VIAL ONE (13:39)
--- NOTE | 2016-12-20 14:00 | RADIOLOGY REPORT (SQ) ---
EXAM DESCRIPTION: KUB/ABDOMEN (SINGLE VIEW) COMPLETED DATE/TIME: 12/20/2016 1:52 pm REASON FOR STUDY: NGT placement COMPARISON: 09/26/2016 NUMBER OF VIEWS: One view. TECHNIQUE: Supine radiographic image of the abdomen acquired. LIMITATIONS: None. FINDINGS: BOWEL GAS PATTERN: There is persistent mild colonic distention. NG tube remains in place. CALCIFICATIONS: No suspicious calcifications. SOFT TISSUES: No gross mass or suggestion of organomegaly. HARDWARE: None in the abdomen. BONES: No acute fracture. No worrisome bone lesions. OTHER: No other significant finding. IMPRESSION: Persistent mild colonic distention. NG tube is in satisfactory position. TECHNICAL DOCUMENTATION: JOB ID: [id number]- All Rights Reserved
[2016-12-20 14:42] LABS: ARTERIAL BLOOD BASE EXCESS -5.9 mmol/L; ARTERIAL BLOOD O2 SATURATION 99.5 % (94-98)
[2016-12-20] MEDS ORDERED: PROPOFOL 100 ML IV PRN (14:47)
[2016-12-20] MEDS ORDERED: MORPHINE SULFATE 10 MG/ML INJ IV PRN (14:47)
[2016-12-20] MEDS ORDERED: VANCOMYCIN HCL 0 MG in DEXTROSE 5%-WATER 250 ML IV NR (15:15)
--- NOTE | 2016-12-20 15:28 | PDOC TRANSFER SUMMARY ---
General Admission Date/PCP: 12/19/16 15:32 FIDEL HANDY DO Admission Date: 12/19/16 Transfer Date: 12/20/16 Accepting Facility: [facility] Accepting Physician: Dr Tineo Resuscitation Status: Full Code - Transfer Diagnosis (1) Acute respiratory failure with hypoxia and hypercapnia Is this a current diagnosis for this admission?: Yes Diagnosis Summary: Patient is presently intubated and sedated. Vent settings are SIMV 550 FiO2 40 % rate of 24+5 PEEP and 16 pressure support. (2) COPD exacerbation Is this a current diagnosis for this admission?: Yes Diagnosis Summary: Patient is on empiric IV antibiotics. Chest x-ray shows no infiltrate or effusions CT of the chest showed mild bronchial thickening otherwise no infiltrates or effusions. Negative for pulmonary emboli. (3) Elevated troponin Is this a current diagnosis for this admission?: Yes Diagnosis Summary: Most likely secondary to myocardial strain from hypoxemia (4) Expressive aphasia Is this a current diagnosis for this admission?: Yes Diagnosis Summary: Patient with right-sided CVA with expressive aphasia 2 years ago. At that time he required long-term ventilator management and tracheostomy divided. (5) Schizophrenia Is this a current diagnosis for this admission?: Yes Diagnosis Summary: Continue Zyprexa (6) CHF (congestive heart failure) Is this a current diagnosis for this admission?: Yes Diagnosis Summary: Patient has reported grade 2/4 diastolic dysfunction. Echo here was pending. Patient has known peripheral edema or JVD. She does have [place] 6300. (7) Hyperglycemia Is this a current diagnosis for this admission?: Yes Diagnosis Summary: Most likely secondary to IV steroid with her covering with every 6 hours Chemstrips (8) correction current use of anticoagulant Is this a current diagnosis for this admission?: Yes Diagnosis Summary: Patient has been on Xarelto since his CVA. - Transfer Medications Home Medications: Albuterol Sulfate [Albuterol Sulfate 2.5mg/3 mL] 1 vial IH RTQ4HP PRN 12/19/16 Escitalopram Oxalate [Lexapro 10 mg Tablet] 10 mg PO DAILY 12/19/16 Olanzapine [Zyprexa 5 mg Tablet] 5 mg PO DAILY 12/19/16 Transfer Medications: Current Medications Acetaminophen (Tylenol Soln 325 Mg/10.15 Ml Udcup) 650 mg NG Q4HP PRN PRN Reason: pain or temp greater than 101F Stop: 01/19/17 09:30 Albuterol/Ipratropium (Duoneb 3 Ml Ampul) 3 ml NEB RTQ3HP PRN PRN Reason: SHORTNESS OF BREATH Stop: 01/18/17 15:31 Last Admin: 12/19/16 21:59 Dose: 3 ml Albuterol/Ipratropium (Duoneb 3 Ml Ampul) 3 ml NEB RTQ6 JUDI Stop: 01/18/17 19:59 Last Admin: 12/20/16 14:06 Dose: 3 ml Dextrose (Dextrose Inj 50% Syringe (25 Gm/50 Ml)) 12.5 gm IV PRN PRN; Protocol PRN Reason: FOR BG 50-69 IN ALERT PATIENT Stop: 01/19/17 07:50 Dextrose (Dextrose Inj 50% Syringe (25 Gm/50 Ml)) 25 gm IV PRN PRN PRN Reason: Protocol Stop: 01/19/17 07:50 Escitalopram Oxalate (Lexapro 10 Mg Tablet) 10 mg NG DAILY [facility] Stop: 01/19/17 09:59 Last Admin: 12/20/16 11:29 Dose: Not Given Glucagon (Glucagen Inj 1 Mg Vial) 1 mg IM PRN PRN; Protocol PRN Reason: Evaluate for BG < 70 Stop: 01/19/17 07:50 Glucose (Glutose 40% Gel 15 Gm Tube) 15 gm NG PRN PRN; Protocol PRN Reason: FOR BG 50-69 IN ALERT PATIENT Stop: 01/19/17 07:50 Glucose (Glutose 40% Gel 15 Gm Tube) 30 gm NG PRN PRN; Protocol PRN Reason: FOR BG < 50 IN ALERT PATIENT Stop: 01/19/17 07:50 Guaifenesin (Mucinex Sr 600 Mg Tablet.Sa) 1,200 mg PO Q12 [facility] Stop: 01/18/17 21:59 Last Admin: 12/20/16 09:02 Dose: 1,200 mg Ceftriaxone Sodium/Dextrose (Rocephin Rtu 1 Gm/D5w 50 Ml Premix) 1 gm in 50 mls @ 100 mls/hr IV QHS [facility] Stop: 12/26/16 21:59 Last Admin: 12/19/16 22:25 Dose: 50 ml Nitroglycerin/Dextrose (Ntg Rtu 50 Mg/D5w 250 Ml Iv Premix Bottle) 50 mg in 250 mls @ 0 mls/hr IV CONTINUOUS PRN; Protocol; Titrate PRN Reason: THIS MED IS NOT "PRN" Stop: 01/18/17 20:04 Azithromycin 500 mg/ Dextrose 250 mls @ 250 mls/hr IV QHS JUDI Stop: 12/26/16 22:19 Sodium Chloride (Nacl 0.9% 1000 Ml Iv Soln) 1,000 mls @ 75 mls/hr IV CONTINUOUS PRN PRN Reason: THIS MED IS NOT "PRN" Stop: 01/19/17 07:50 Last Admin: 12/20/16 13:19 Dose: 1,000 ml Norepinephrine Bitartrate 4 mg (/ Dextrose) 254 mls @ 0 mls/hr IV CONTINUOUS PRN; Titrate PRN Reason: THIS MED IS NOT "PRN" Stop: 01/19/17 13:05 Propofol (Diprivan Rtu 1000 Mg/100 Ml Inf.Bottle) 100 mls @ 0 mls/hr IV CONTINUOUS PRN; Protocol; Titrate PRN Reason: THIS MED IS NOT "PRN" Stop: 01/19/17 14:46 Vancomycin HCl / Dextrose 250 mls @ 0 mls/hr IV .PHARMACY TO DOSE NR PRN Reason: As Directed Stop: 12/27/16 15:14 Insulin Human Lispro (Humalog Insulin 100 Unit/1 Ml 3 Ml Vial) 0 - 12 unit SUBCUT ACHSP PRN PRN Reason: Protocol Stop: 01/19/17 07:50 Methylprednisolone Sodium Succinate (Solu-Medrol Inj/Pf 125 Mg/2 Ml Sdv) 125 mg IV Q8 [facility] Stop: 01/18/17 21:59 Last Admin: 12/20/16 13:13 Dose: 125 mg Metoprolol Tartrate (Lopressor 25 Mg Tablet) 25 mg NG Q12 [facility] Stop: 01/18/17 21:59 Morphine Sulfate (Morphine 10 Mg/Ml Inj) 2 mg IV Q4HP PRN PRN Reason: FOR CHEST PAIN Stop: 12/26/16 20:04 Last Admin: 12/19/16 22:35 Dose: 2 mg Morphine Sulfate (Morphine 10 Mg/Ml Inj) 2 mg IV Q2HP PRN PRN Reason: FOR BREAKTHROUGH PAIN Stop: 12/27/16 14:46 Nicotine (Nicoderm 21 Mg/24 Hr Transderm Patch) 1 each TD DAILY [facility] Stop: 01/19/17 09:59 Last Admin: 12/20/16 08:37 Dose: 1 each Olanzapine (Zyprexa 5 Mg Tablet) 5 mg NG DAILY [facility] Stop: 01/19/17 09:59 Last Admin: 12/20/16 11:29 Dose: Not Given Pantoprazole Sodium (Protonix Iv Inj 40 Mg Vial) 40 mg IV Q12 [facility] Stop: 12/23/16 21:59 Pharmacy Profile Note (Medication Communication Order) 1 each .NOTICE NR Stop: 01/19/17 09:29 Rivaroxaban (Xarelto 15 Mg Tablet) 15 mg NG QPM [facility] Stop: 01/18/17 21:59 Sodium Biphosphate/Sodium Phosphate (Fleet Enema (Adult) 133 Ml) 133 ml NC DAILY PRN PRN Reason: FOR CONSTIPATION Stop: 01/20/17 09:59 Sodium Chloride (Saline Flush 2.5 Ml Monoject Prefil Syrin) 2.5 ml IV Q8 [facility]I Stop: 01/18/17 21:59 Last Admin: 12/20/16 13:39 Dose: 2.5 ml Tiotropium [place] (Spiriva Handihaler 5 Cap/Kit (18 Mcg/Cap)) 1 cap IH DAILY [facility] Stop: 01/19/17 09:59 Last Admin: 12/20/16 11:29 Dose: Not Given Trazodone HCl (Desyrel 50 Mg Tablet) 100 mg NG QHS [facility] Stop: 01/19/17 21:59 - Allergies Allergies/Adverse Reactions: levofloxacin Adverse Reaction (Verified 12/19/16 13:31) Hives - Diet/Activity Discharge Diet: Other (Comments) - NPO Hospital Course Hospital Course: Patient was initially admitted to the [facility] on BiPAP therapy. He was found to have diffuse expiratory wheezing. He did have great improvement with multiple DuoNeb nebulizer treatments, IV steroids and broad-spectrum IV antibiotics after blood cultures 2 were obtained. Chest x-ray was unremarkable for any infiltrates or effusions. Despite being on BiPAP therapy the patient had worsening hypercapnia. He was noted to have elevated troponin. He had no significant EKG changes. The patient was transferred to the [facility] for further monitoring and care. He was started on IV nitroglycerin. He had worsening hypercapnia despite BiPAP therapy. After long discussion with patient's family , they wish to proceed with elective intubation. Dr. Licona, prevocational/rehabilitation counselor, saw the patient in consult. He was started on IV propofol which resulted in mild hypotension. He required IV Levophed at 2 mics per kilo per minute to maintain systolic blood pressure greater than 100. Patient's son arrived from out of town. He has requested patient be transferred to [facility] for higher level of care. Dr. Tineo, carbonation tester, accepted the patient in transfer. Family was notified. Physical Exam Vital Signs: Temp Pulse Resp BP Pulse Ox 97.0 F 113 H 24 H 83/71 L 100 12/20/16 04:40 12/20/16 14:06 12/20/16 14:06 12/20/16 10:51 12/20/16 11:17 Intake & Output 12/19/16 12/20/16 12/21/16 06:59 06:59 06:59 Intake Total 453 Output Total 400 255 Balance 53 -255 Weight 75.9 kg General appearance: PRESENT: no acute distress, thin, well-developed, well- nourished, other - Intubated and sedated Head exam: PRESENT: atraumatic, normocephalic Eye exam: PRESENT: conjunctival injection Ear exam: PRESENT: normal external ear exam Mouth exam: PRESENT: moist, tongue midline Teeth exam: PRESENT: edentulous Neck exam: ABSENT: carotid bruit, JVD, lymphadenopathy, thyromegaly Respiratory exam: PRESENT: symmetrical, unlabored, wheezes Cardiovascular exam: PRESENT: +S1, +S2, tachycardia Pulses: PRESENT: normal carotid pulses, normal radial pulses Vascular exam: PRESENT: normal capillary refill GI/Abdominal exam: PRESENT: normal bowel sounds, soft. ABSENT: distended, guarding, mass, organolmegaly, rebound, tenderness Rectal exam: PRESENT: deferred Musculoskeletal exam: PRESENT: ambulatory, other - Left-sided extremity weakness 4/5 Neurological exam: PRESENT: CN II-XII grossly intact, aphasic, other - Sedated on IV propofol Psychiatric exam: PRESENT: other - Sedated Skin exam: PRESENT: dry, intact, warm. ABSENT: cyanosis, rash Results Laboratory Results: 12/20/16 02:13 12/20/16 02:13 12/19/16 12/19/16 12/20/16 16:45 19:00 02:13 WBC 6.5 RBC 5.11 Hgb 15.2 Hct 46.8 MCV 92 MCH 29.7 MCHC 32.4 RDW 13.7 Plt Count 196 Seg Neutrophils % 88.9 H Lymphocytes % 9.1 L Monocytes % 1.9 L Eosinophils % 0.0 Basophils % 0.1 Absolute Neutrophils 5.7 Absolute Lymphocytes 0.6 Absolute Monocytes 0.1 Absolute Eosinophils 0.0 Absolute Basophils 0.0 Carbonic Acid 2.09 H HCO3/H2CO3 Ratio 13:1 ABG pH 7.22 L ABG pCO2 69.4 H* ABG pO2 90.3 ABG HCO3 27.5 H ABG O2 Saturation 94.9 ABG Base Excess -2.2 FiO2 3.5L Sodium Potassium Chloride Carbon Dioxide Anion Gap BUN Creatinine Est GFR ( Amer) Est GFR (Non-Af Amer) Glucose Calcium Urine Color YELLOW Urine Appearance CLEAR Urine pH 5.0 Ur Specific [place] 1.009 Urine Protein 100 H Urine Glucose (UA) NEGATIVE Urine Ketones NEGATIVE Urine Blood SMALL H Urine Nitrite NEGATIVE Ur Leukocyte Esterase NEGATIVE Urine WBC (Auto) 1 Urine RBC (Auto) 0 12/20/16 12/20/16 12/20/16 02:13 08:20 11:05 WBC RBC Hgb Hct MCV MCH MCHC RDW Plt Count Seg Neutrophils % Lymphocytes % Monocytes % Eosinophils % Basophils % Absolute Neutrophils Absolute Lymphocytes Absolute Monocytes Absolute Eosinophils Absolute Basophils Carbonic Acid 2.29 H 1.56 H HCO3/H2CO3 Ratio 12:1 13:1 ABG pH 7.18 L* 7.22 L ABG pCO2 76.0 H* 51.9 H ABG pO2 134.3 H 224.7 H ABG HCO3 27.5 H 20.8 ABG O2 Saturation 97.9 99.3 H ABG Base Excess -3.2 -7.2 FiO2 35 45% Sodium 141.2 Potassium 4.9 Chloride 100 Carbon Dioxide 25 Anion Gap 16 BUN 20 Creatinine 1.82 H Est GFR ( Amer) 45 L Est GFR (Non-Af Amer) 37 L Glucose 236 H Calcium 10.3 H Urine Color Urine Appearance Urine pH Ur Specific [place] Urine Protein Urine Glucose (UA) Urine Ketones Urine Blood Urine Nitrite Ur Leukocyte Esterase Urine WBC (Auto) Urine RBC (Auto) 12/20/16 14:30 WBC RBC Hgb Hct MCV MCH MCHC RDW Plt Count Seg Neutrophils % Lymphocytes % Monocytes % Eosinophils % Basophils % Absolute Neutrophils Absolute Lymphocytes Absolute Monocytes Absolute Eosinophils Absolute Basophils Carbonic Acid 1.24 HCO3/H2CO3 Ratio 16:1 ABG pH 7.31 L ABG pCO2 41.2 ABG pO2 240.5 H ABG HCO3 20.1 ABG O2 Saturation 99.5 H ABG Base Excess -5.9 FiO2 50% Sodium Potassium Chloride Carbon Dioxide Anion Gap BUN Creatinine Est GFR ( Amer) Est GFR (Non-Af Amer) Glucose Calcium Urine Color Urine Appearance Urine pH Ur Specific [place] Urine Protein Urine Glucose (UA) Urine Ketones Urine Blood Urine Nitrite Ur Leukocyte Esterase Urine WBC (Auto) Urine RBC (Auto) 12/19/16 12/20/16 12/20/16 19:55 02:13 07:33 Troponin I 0.183 0.106 0.069 NT-Pro-B Natriuret Pep 7190 H Impressions: Chest/Abdomen CTA 12/19/16 00:00 IMPRESSION: Bronchial wall thickening and mild segmental airway mucus plugging. No consolidation or pleural effusion. No emboli visualized in the main pulmonary arteries or the segmental branches. Chest X-Ray 12/20/16 00:00 IMPRESSION: Tube placement as described. There is no acute pulmonary disease. KUB X-Ray 12/20/16 00:00 IMPRESSION: Persistent mild colonic distention. NG tube is in satisfactory position. Plan Discharge Plan: Transfer to [facility]. Time Spent: Less than 30 Minutes
[2016-12-20 15:54] LABS: ANION GAP 18 (5-19); BLOOD UREA NITROGEN 25 mg/dL (7-20); CALCIUM 10.2 mg/dL (8.4-10.2); CARBON DIOXIDE 21 mmol/L (22-30); CHLORIDE 103 mmol/L (98-107); GLUCOSE 161 mg/dL (75-110); SODIUM 141.7 mmol/L (137-145); TRIGLYCERIDES 116 mg/dL (<150)
[2016-12-20 16:04] LABS: POTASSIUM 5.9 mmol/L (3.6-5.0)
[2016-12-20] MEDS ORDERED: NORMAL SALINE 1000 ML 1,000 ML IV PRN (16:41)
[2016-12-20] MEDS ORDERED: DEXTROSE 50%-WATER 25 GM/50 ML DISP.SYRIN IV ONE (17:00)
[2016-12-20] MEDS ORDERED: INSULIN REG, HUMAN 100 UNIT/ML 3 ML VIAL (PYX) IV ONE (17:00)
[2016-12-20] MEDS ORDERED: VANCOMYCIN HCL 1,500 MG in DEXTROSE 5%-WATER 250 ML IV SCH (17:00)
--- NOTE | 2016-12-20 17:57 | XCELERA REPORT ---
[address] [address] Transthoracic Echocardiogram Report Name: DALY PORTILLO SR Age: 71 yrs Gender: Male : 1945 Patient Status: Inpatient Patient Location: ICU^[id number]^A Study Date: 12/20/2016 09:09 AM Height: 70 in Weight: 166 lb BSA: 1.9 m2 Procedure: A two-dimensional transthoracic echocardiogram with color flow and Doppler was performed. Study Quality: Technically suboptimal. Reason For Study: Elevated NTBNP, / CHF, History: Elevated NTBNP, / CHF,. Ordering Physician: FAHAD LLOYD Performed By: Rossi Pham Interpretation Summary The left ventricle is grossly normal size. There is normal left ventricular wall thickness. No True 2 chamber apical views obtained.Hence cannot comment on the apical and basal anterior marie, and the apical and basal inferior marie.The mid anterior and the mid inferior and the rest of the marie have mildly reduced contraction and LVEF is mildly reduced at 50%. Doppler measurements suggest impaired left ventricular relaxation, which is associated with grade I/IV or mild diastolic dysfunction RV not well seen .Cannot exclude RVH. The left atrial size is normal. There is no evidence of mitral valve prolapse. There is no mitral valve stenosis. There is no mitral regurgitation noted. There is no aortic valve stenosis There is no LVOT obstruction. No aortic regurgitation is present. There is no tricuspid stenosis. There is a trace to mild amount of tricuspid regurgitation Right ventricular systolic pressure is normal. RVSP is 24 mm of Hg , with RA mean of 10. There is no pericardial effusion. MMode/2D Measurements & Calculations RVDd: 2.1 cm LVIDd: 3.1 cm FS: 24.9 % Ao root diam: 3.1 cm IVSd: 1.1 cm LVIDs: 2.3 cm EDV(Teich): 37.1 ml LVPWd: 1.1 cm ESV(Teich): 18.3 ml Ao root area: 7.8 cm2 EF(Teich): 50.7 % LA dimension: 3.1 cm Doppler Measurements & Calculations MV E max aura: MV P1/2t max aura: Ao V2 max: LV V1 max P.6 cm/sec 34.6 cm/sec 45.2 cm/sec 0.73 mmHg MV A max aura: MV P1/2t: 39.3 msec Ao max PG: LV V1 max: 56.9 cm/sec 0.82 mmHg 42.8 cm/sec MV E/A: 0.61 MVA(P1/2t): 5.6 cm2 MV dec slope: 257.9 cm/sec2 MV dec time: 0.13 sec PA V2 max: TR max aura: 45.6 cm/sec 188.9 cm/sec PA max PG: TR max P.3 mmHg 0.83 mmHg Left Ventricle The left ventricle is grossly normal size. There is normal left ventricular wall thickness. No True 2 chamber apical views obtained.Hence cannot comment on the apical and basal anterior marie, and the apical and basal inferior marie.The mid anterior and the mid inferior and the rest of the marie have mildly reduced contraction and LVEF is mildly reduced at 50%. Doppler measurements suggest impaired left ventricular relaxation, which is associated with grade I/IV or mild diastolic dysfunction. Right Ventricle RV not well seen .Cannot exclude RVH. Atria Right atrium not well visualized secondary to technical limitations. The left atrial size is normal. Mitral Valve There is no evidence of mitral valve prolapse. There is no vegetation seen on the mitral valve. There is no mitral valve stenosis. There is no mitral regurgitation noted. Aortic Valve There is no aortic valve stenosis. There is no LVOT obstruction. No aortic regurgitation is present. Tricuspid Valve There is no tricuspid stenosis. There is a trace to mild amount of tricuspid regurgitation. Right ventricular systolic pressure is normal. RVSP is 24 mm of Hg , with RA mean of 10. Pulmonic Valve The pulmonic valve is not well visualized. Great Vessels The aortic root is not well visualized. Effusions There is no pericardial effusion. : FAHAD LLOYD > Barb Monzon
[2016-12-20] MEDS ORDERED: RIVAROXABAN 15 MG TABLET NG SCH (18:00)
[2016-12-20] MEDS: CEFTRIAXONE 1 GM/D5W RTU 1 GM/50 ML RTUPB IV SCH (21:09)
[2016-12-20 21:44] VITALS: BP 130/100
[2016-12-20] MEDS ORDERED: PANTOPRAZOLE SODIUM 40 MG VIAL IV SCH (22:00)
[2016-12-20] MEDS ORDERED: TRAZODONE HCL 50 MG TABLET NG SCH (22:00)
[2016-12-20] MEDS ORDERED: (PENDING PHARMACY ID) (Trazodone Hcl [Desyrel] 100 MG) PO SCH (22:00)
[2016-12-20] MEDS ORDERED: METOPROLOL TARTRATE 25 MG TABLET NG SCH (22:00)
== END 2016-12-20 22:20 | disposition short-term general hospital (02) | DRG 189 ==
LOC: ER 13:29 → EH 15:32 → UNDOADMIN 15:57 → 3S 18:26 → ICU 21:30
PROVIDERS: ADMIT Family Medicine; ATTEND Family Medicine
PROC: 5A09457 Assistance with Respiratory Ventilation, 24-96 Consecutive Hours, Continuous Positive Airway Pressure (ICD-10-PCS; principal; 2016-12-19)
DX: J96.02 Acute respiratory failure with hypercapnia (principal); J44.1 Chronic obstructive pulmonary disease with (acute) exacerbation; I13.0 Hypertensive heart and chronic kidney disease with heart failure and stage 1 through stage 4 chronic kidney disease, or unspecified chronic kidney disease; I50.30 Unspecified diastolic (congestive) heart failure; J96.01 Acute respiratory failure with hypoxia; N18.9 Chronic kidney disease, unspecified; R73.9 Hyperglycemia, unspecified; F20.9 Schizophrenia, unspecified; Z79.01 Long term (current) use of anticoagulants; Z79.899 Other long term (current) drug therapy; Z88.1 Allergy status to other antibiotic agents; I25.2 Old myocardial infarction; I69.320 Aphasia following cerebral infarction; F17.210 Nicotine dependence, cigarettes, uncomplicated
CPT/HCPCS: 31500; 36415; 36600; 71010; 71275; 74000; 80048; 80053; 81001; 82271; 82550; 82553; 82803; 82962; 83880; 84478; 84484; 85025; 87040; 87077; 87186; 93005; 93010; 93306; 94002; 94640; 94660; 96374; 96375; 99291; J0330; J0456; J0696; J1815; J1940; J2060; J2270; J2704; J2930; J3370; J3490; J7030; J7060; J7620; S0164

== ENCOUNTER → 2017-01-16 | Outpatient (CLI) | payer MEDICARE ==
[2017-01-16 18:51] LABS: ANION GAP 11 (5-19); BLOOD UREA NITROGEN 8 mg/dL (7-20); CALCIUM 9.5 mg/dL (8.4-10.2); CARBON DIOXIDE 29 mmol/L (22-30); CHLORIDE 103 mmol/L (98-107); CREATININE RESULT 1.22 mg/dL (0.52-1.25); GLUCOSE 102 mg/dL (75-110); POTASSIUM 3.2 mmol/L (3.6-5.0); SODIUM 142.7 mmol/L (137-145)
[2017-01-16 18:56] LABS: HEMATOCRIT 30.6 % (37.9-51.0); HEMOGLOBIN 10.2 g/dL (13.5-17.0); MEAN CORPUSCULAR HEMOGLOBIN 30.5 pg (27.0-33.4); MEAN CORPUSCULAR HGB CONC 33.2 g/dL (32.0-36.0); MEAN CORPUSCULAR VOLUME 92 fl (80-97); RED BLOOD COUNT 3.33 10^6/uL (4.35-5.55); RED CELL DISTRIBUTION WIDTH 15.1 % (11.5-14.0); WHITE BLOOD COUNT 5.9 10^3/uL (4.0-10.5)
== END ==
LOC: OD 17:08
PROVIDERS: ATTEND Internal Medicine Nephrology
DX: I12.9 Hypertensive chronic kidney disease with stage 1 through stage 4 chronic kidney disease, or unspecified chronic kidney disease (principal); N18.3 Chronic kidney disease, stage 3 (moderate)
CPT/HCPCS: 36415; 80048; 85027

== ENCOUNTER → 2017-01-26 | Outpatient (CLI) | payer MEDICARE ==
--- NOTE | 2017-01-26 15:40 | RADIOLOGY REPORT (SQ) ---
EXAM DESCRIPTION: HAND RIGHT 3 VIEWS COMPLETED DATE/TIME: 01/26/2017 3:08 pm REASON FOR STUDY: PAIN IN UNSPECIFIED HAND M79.643 PAIN IN UNSPECIFIED HAND COMPARISON: Right wrist same date EXAM PARAMETERS: NUMBER OF VIEWS: Three views. TECHNIQUE: AP, lateral and oblique radiographic images acquired of the right hand. LIMITATIONS: None. FINDINGS: MINERALIZATION: Normal. BONES: No acute fracture or dislocation. No worrisome bone lesions. JOINTS: There is joint space narrowing at the right 1st metacarpophalangeal joint. No aggressive per iarticular erosions or bulky bony spurring. SOFT TISSUES: Ulnar soft tissue swelling at the wrist, could indicate ganglion cyst or triangular fib rocartilage irregularity OTHER: No other significant finding. 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
--- NOTE | 2017-01-26 15:41 | RADIOLOGY REPORT (SQ) ---
EXAM DESCRIPTION: WRIST RIGHT 3 VIEWS COMPLETED DATE/TIME: 01/26/2017 3:08 pm REASON FOR STUDY: PAIN IN UNSPECIFIED HAND M79.643 PAIN IN UNSPECIFIED HAND COMPARISON: None. NUMBER OF VIEWS: Three views. TECHNIQUE: AP, lateral, and oblique radiographic images acquired of the right wrist. LIMITATIONS: None. FINDINGS: MINERALIZATION: Normal. BONES: No acute fracture or dislocation. No worrisome bone lesions. Normal alignment. SOFT TISSUES: There is mild ulnar soft tissue swelling. No radiopaque foreign body or soft tissue ga s. OTHER: No high-grade joint space narrowing worrisome for advanced osteoarthritis of the wrist. There is moderate joint space narrowing at the 1st metacarpophalangeal joint. IMPRESSION: Ulnar soft tissue swelling, could correlate with triangular fibrocartilage abnormality o r ganglion cyst. TECHNICAL DOCUMENTATION: JOB ID: [id number] [employer]- All Rights Reserved
--- NOTE | 2017-01-26 15:42 | RADIOLOGY REPORT (SQ) ---
EXAM DESCRIPTION: FOREARM RIGHT COMPLETED DATE/TIME: 01/26/2017 3:08 pm REASON FOR STUDY: PAIN IN UNSPECIFIED HAND M79.643 PAIN IN UNSPECIFIED HAND COMPARISON: Right wrist and right hand films same date NUMBER OF VIEWS: Two views. TECHNIQUE: Two radiographic images acquired of the right forearm, including elbow and wrist in at le ast one projection. LIMITATIONS: None. FINDINGS: MINERALIZATION: Normal. BONES: No acute fracture. No worrisome bone lesions. SOFT TISSUES: No obvious swelling or foreign body. OTHER: No other significant finding. IMPRESSION: NEGATIVE STUDY OF THE RIGHT FOREARM. NO RADIOGRAPHIC EVIDENCE OF ACUTE INJURY. TECHNICAL DOCUMENTATION: JOB ID: [id number] [employer]- All Rights Reserved
== END ==
LOC: OD 13:45
PROVIDERS: ATTEND Student in an Organized Health Care Education/Training Program
DX: M25.531 Pain in right wrist (principal); M79.641 Pain in right hand

== ENCOUNTER → 2017-01-30 | Outpatient (CLI) | payer MEDICARE ==
[2017-01-31 10:46] LABS: ABSOLUTE EOSINOPHILS # (AUTO) 0.2 10^3/uL (0.0-0.6); ABSOLUTE LYMPHOCYTES (AUTO) 2.5 10^3/uL (0.5-4.7); ABSOLUTE MONOCYTES (AUTO) 0.4 10^3/uL (0.1-1.4); ABSOLUTE NEUT (AUTO) 2.6 10^3/uL (1.7-8.2); BASOPHILS % (AUTO) 0.5 % (0-2); EOSINOPHILS % (AUTO) 2.8 % (0-6); HEMATOCRIT 34.8 % (37.9-51.0); HEMOGLOBIN 11.6 g/dL (13.5-17.0); LYMPHOCYTES % (AUTO) 43.5 % (13-45); MEAN CORPUSCULAR HEMOGLOBIN 30.3 pg (27.0-33.4); MEAN CORPUSCULAR HGB CONC 33.3 g/dL (32.0-36.0); MEAN CORPUSCULAR VOLUME 91 fl (80-97); MONOCYTES % (AUTO) 7.6 % (3-13); RED BLOOD COUNT 3.83 10^6/uL (4.35-5.55); RED CELL DISTRIBUTION WIDTH 15.4 % (11.5-14.0); SEGMENTED NEUTROPHILS % (AUTO) 45.6 % (42-78); WHITE BLOOD COUNT 5.7 10^3/uL (4.0-10.5)
[2017-01-31 11:14] LABS: ALANINE AMINOTRANSFERASE 33 U/L (21-72); ALBUMIN 4.5 g/dL (3.5-5.0); ALKALINE PHOSPHATASE 78 U/L (38-126); ANION GAP 16 (5-19); ASPARTATE AMINO TRANSFERASE 18 U/L (17-59); BILIRUBIN,DIRECT 0.4 mg/dL (0.0-0.4); BILIRUBIN,TOTAL 0.6 mg/dL (0.2-1.3); BLOOD UREA NITROGEN 12 mg/dL (7-20); CALCIUM 10.6 mg/dL (8.4-10.2); CARBON DIOXIDE 22 mmol/L (22-30); CHLORIDE 107 mmol/L (98-107); CHOLESTEROL 313.18 mg/dL (0-200); Direct HDL 85 mg/dL (>40); GLUCOSE 93 mg/dL (75-110); POTASSIUM 4.9 mmol/L (3.6-5.0); SODIUM 144.6 mmol/L (137-145); TOTAL PROTEIN 8.2 g/dL (6.3-8.2); TRIGLYCERIDES 116 mg/dL (<150)
[2017-01-31 11:25] LABS: DIRECT LDL 170 mg/dL (<100)
== END ==
LOC: OD 14:04
PROVIDERS: ATTEND Student in an Organized Health Care Education/Training Program
DX: J44.1 Chronic obstructive pulmonary disease with (acute) exacerbation (principal); Z13.1 Encounter for screening for diabetes mellitus; I50.42 Chronic combined systolic (congestive) and diastolic (congestive) heart failure; E87.6 Hypokalemia; E78.2 Mixed hyperlipidemia
CPT/HCPCS: 36415; 80053; 80061; 85025; 87040; 87077; 87186

== ENCOUNTER → 2017-02-02 | Outpatient (CLI) | payer MEDICARE | LOC: OD 11:37 | PROVIDERS: ATTEND Student in an Organized Health Care Education/Training Program | DX: A41.9 Sepsis, unspecified organism (principal) | CPT/HCPCS: 87040 ==

== ENCOUNTER → 2017-02-13 | Outpatient (CLI) | payer MEDICARE ==
[2017-02-13 13:35] LABS: HEMATOCRIT 38.5 % (37.9-51.0); HEMOGLOBIN 12.5 g/dL (13.5-17.0); MEAN CORPUSCULAR HEMOGLOBIN 29.3 pg (27.0-33.4); MEAN CORPUSCULAR HGB CONC 32.4 g/dL (32.0-36.0); MEAN CORPUSCULAR VOLUME 90 fl (80-97); RED BLOOD COUNT 4.26 10^6/uL (4.35-5.55); RED CELL DISTRIBUTION WIDTH 14.4 % (11.5-14.0); WHITE BLOOD COUNT 5.9 10^3/uL (4.0-10.5)
[2017-02-13 13:54] LABS: BLOOD UREA NITROGEN 12 mg/dL (7-20); CALCIUM 9.9 mg/dL (8.4-10.2); CREATININE RESULT 1.38 mg/dL (0.52-1.25); GLUCOSE 88 mg/dL (75-110)
[2017-02-13 13:55] LABS: ANION GAP 11 (5-19); CARBON DIOXIDE 28 mmol/L (22-30); CHLORIDE 106 mmol/L (98-107); MAGNESIUM 1.8 mg/dL (1.6-2.3); POTASSIUM 4.3 mmol/L (3.6-5.0); SODIUM 144.8 mmol/L (137-145)
== END ==
LOC: OD 12:10
PROVIDERS: ATTEND Internal Medicine Nephrology
DX: I12.9 Hypertensive chronic kidney disease with stage 1 through stage 4 chronic kidney disease, or unspecified chronic kidney disease (principal); N18.3 Chronic kidney disease, stage 3 (moderate); D64.9 Anemia, unspecified; E87.6 Hypokalemia
CPT/HCPCS: 36415; 80048; 83735; 85027

== ENCOUNTER 2017-05-30 10:13 | Inpatient (IN) | payer MEDICARE ==
[2017-05-30] MEDS ORDERED: ASPIRIN 300 MG SUPP, RECTAL PR ONE (10:33)
--- NOTE | 2017-05-30 10:39 | ER Document Report ---
ED Neuro Symptoms/Deficit - General Mode of Arrival: Medic Information source: Relative, Emergency Med Personnel Notes: Patient is a 71 year old male with a history of strokes presents to the emergency department via EMS for possible stoke symptoms onset 0800. Family states the patient was brought in after family found the patient less responsive normal stating he was not walking or following commands and had left sided weakness. Family states the patient had a stroke 2 years ago which left the patient with right sided weakness and non verbal. Patients last known well was 2129 yesterday. TRAVEL OUTSIDE OF THE [place] IN LAST 30 DAYS: No <KENYON NELSON - Last Filed: 05/30/17 12:55> <DORIS SCHWAB - Last Filed: 05/30/17 19:01> - General Stated Complaint: POSSIBLE STROKE Time Seen by Provider: 05/30/17 10:20 - Related Data Allergies/Adverse Reactions: levofloxacin Adverse Reaction (Verified 12/19/16 13:31) Hives Past Medical History - General Information source: Emergency Med Personnel Cannot obtain history due to: Altered mental status - Social History Smoking Status: Unknown if Ever Smoked Family History: CAD, COPD, Hypertension - Past Medical History Cardiac Medical History: Reports: Hx Congestive Heart Failure, Hx Heart Attack, Hx Hypertension Pulmonary Medical History: Reports: Hx COPD Neurological Medical History: Reports: Hx Cerebrovascular Accident Psychiatric Medical History: Reports: Hx Schizoaffective Disorder <KENYON NELSON - Last Filed: 05/30/17 12:55> Review of Systems - Review of Systems -: Yes ROS unobtainable due to patient's medical condition <KENYON NELSON - Last Filed: 05/30/17 12:55> Physical Exam - Notes Notes: GENERAL: Alert, does not follow commands. Non verbal. Yawns frequently. HEAD: Normocephalic, Left sided facial droop. EYES: Pupils equal, round, and reactive to light. Right sided gaze deviation. ENT: Oral mucosa moist, tongue midline. NECK: Full range of motion. Supple. Trachea midline. Well healed tracheostomy scar. LUNGS: Clear to auscultation bilaterally, no wheezes, rales, or rhonchi. No respiratory distress. HEART: Regular rate and rhythm. No murmurs, gallops, or rubs. ABDOMEN: Soft, non-tender. Non-distended. Bowel sounds present in all 4 quadrants. EXTREMITIES: RUE contraction. NEUROLOGICAL: Non verbal, does not follow commands. Responds to noxious stimuli in the BLE. PSYCH: Does not answer orientation questions. SKIN: Warm, dry, normal turgor. No rashes or lesions noted. <KENYON NELSON - Last Filed: 05/30/17 12:55> - Vital signs Vitals: Temp Pulse Resp BP Pulse Ox 97.8 F 80 18 152/84 H 99 05/30/17 10:20 05/30/17 10:20 05/30/17 10:20 05/30/17 10:20 05/30/17 10:20 <DORIS SCHWAB - Last Filed: 05/30/17 19:01> Course - Laboratory Result Diagrams: 05/30/17 11:00 05/30/17 11:00 - Consults Nadya Torres Time consulted: 12:52 - Called, no answer. <KENYON NELSON - Last Filed: 05/30/17 12:55> - Re-evaluation Re-evalutation: 05/30/17 13:11 CBC unremarkable, CMP shows slightly low CO2 at 20, BUN normal but creatinine elevated at 1.28, cardiac enzymes negative, chest x-ray unremarkable, CT scan of the head shows old left hemispheric infarct but no acute findings. Patient was then taken for CTA of the head and the neck to see if there is a large vessel occlusion that might be amenable to retrieval, this was not found. Patient is given aspirin per rectum. He is n.p.o. Discussed with family that he is not a candidate for TPA due to being greater than 4-1/2 hours from onset of symptoms and is not a great candidate for clot retrieval either. Discussed with family admission to this hospital and they are agreeable to admission. Discussed this with Nadya Torres APC who accepts the admission to the [facility]. 05/30/17 13:12 Known history of hypertension will continue to be followed by hospitalist. - Vital Signs Vital signs: Temp Pulse Resp BP Pulse Ox 97.8 F 80 25 H 163/64 H 97 05/30/17 10:20 05/30/17 10:35 05/30/17 13:01 05/30/17 13:01 05/30/17 13:01 - Laboratory Result Diagrams: 05/30/17 11:00 02/13/18 11:00 Laboratory results interpreted by me: 05/30/17 05/30/17 05/30/17 11:00 11:00 11:00 RDW 14.2 H APTT 22.2 L Chloride 114 H Carbon Dioxide 20 L Creatinine 1.28 H Est GFR (Non-Af Amer) 56 L - EKG Interpretation by Me Additional EKG results interpreted by me: 05/30/17 13:12 EKG shows sinus rhythm at a rate of 98, left anterior hemiblock, poor R-wave progression, incomplete right bundle branch block, no ST segment elevations or depressions, there are T-wave inversions noted in aVL per my interpretation. <DORIS SCHWAB - Last Filed: 05/30/17 19:01> ED Alteplase Inc/Exc Criteria - Date/Time patient last known well: Date/Time: Unknown - Date/Time patient arrived in ED: _: 05/30/17 10:15 - Inclusion Criteria: 1: Patient presented to ED within 3 hours of acute ischemic stroke symptom onset ? -: No 2: Did baseline CT exclude intracranial hemorrhage and/or other risk factors? -: Yes 3: Is the age of the patient 18 years of age or greater? -: Yes : If any of the above questions are answered "NO" then stop, patient is not a candidate for Alteplase, : If all of the above questions are answered "YES" then continue with Exclusion Criteria. - The patient is: -: Included and is eligible to receive Alteplase. *Initiate bed placement at higher level of care* Reviewd risks & benefits of thrombolytic therapy: I have reviewed the risks and benefits of thrombolytic therapy with the patient and/or his/her family. -: Excluded and not eligible to receive Alteplase for the above exclusions. --: Yes -: Excluded and not eligible to receive Alteplase for other reasons (specify in comments): <DORIS SCHWAB - Last Filed: 05/30/17 19:01> ED NIH Stroke Scale - NIH Stroke Scale *: 1. NIH scale should be completed with appropriate accompanying assessment tools. *: 2. The NIH should reflect what the patient is capable of doing and should not be coached by the clinician. 1a. Level of Consciousness: 0=Alert;keenly responsive -: 1=Drowsy -: 2=Obtunded -: 3=Coma/unresponsive or reflex to noxious stimuli. 1a. Responses: 2 1b. Orientation Questions: a. What month is it? -: b. How old are you? -: 0=Answers both questions correctly. -: 1=Answers one question correctly or patient is intubated or has orotracheal trauma. -: 2=Answers neither question correctly. 1b. Responses: 2 1c. Response to commands: a. Open and close eyes? -: b. Clinical Outcomes Manager and release hand? -: Credit is given despite weakness. Demonstration of task is permitted. Substitute command if hands cannot be used. -: 0=Performs both tasks correctly -: 1=Performs one task correctly -: 2=Performs neither task correctly 1c. Responses: 2 2. Gaze: Establish eye contact and instruct patient to "Follow my finger" -: 0=Normal -: 1=Partial gaze palsy. Gaze is abnormal in one or both eyes, but where forced deviation or total gaze paresis is not present. -: 2=Forced deviation or total gaze paresis. 2. Responses: 2 3. Visual Lozoya: Sees fingers in all four quadrants. -: 0=No visual loss. -: 1=Partial hemianopsia. -: 2=Complete hemianopsia. -: 3=Bilateral hemianopsia (including Cortical blindness) 4. Facial Movement: Instruct patient to: -: a. Show me your teeth -: b. Raise your eyebrows -: c. Close your eyes -: d. Smile -: 0=Normal symmetrical movement -: 1=Minor paralysis (flattened nasolabial fold, asymmetry on smiling). -: 2=Partial paralysis (total or near total paralysis of lower face). -: 3=Complete paralysis of upper and lower face 5. Motor functions (left arm): Alternate sides and extend each arm with palms down (90 degrees if sitting or 45 degrees for supine). -: 0=No drift;limb holds for full 10 seconds. -: 1=Drift; limb holds but drifts down before full 10 seconds, but does not hit bed. -: 2=Some effort against gravity; limb cannot get to or maintain position. -: 3=No effort against gravity; limb falls. -: 4=No movement. -: UN=Amputation, joint fusion, explain in comments. 5. Motor Functions (right arm): Alternate sides and extend each arm with palms down (90 degrees if sitting or 45 degrees for supine). -: 0=No drift;limb holds for full 10 seconds. -: 1=Drift; limb holds but drifts down before full 10 seconds, but does not hit bed. -: 2=Some effort against gravity; limb cannot get to or maintain position. -: 3=No effort against gravity; limb falls. -: 4=No movement. -: UN=Amputation, joint fusion, explain in comments. 6. Motor Functions (left leg): With patient lying supine, alternate sides and extend each leg (30 degrees always while supine). -: 0=No drift, leg holds position for full 5 seconds -: 1=Drift; leg falls before full 5 seconds but does not hit bed. -: 2=Some effort against gravity, leg falls to bed but some effort against gravity. -: 3=No effort against gravity, leg falls to bed immediately. -: 4=No movement. -: UN=Amputation, joint fusion; explain in comments. 6. Motor Functions (right leg): With patient lying supine, alternate sides and extend each leg (30 degrees always while supine). -: 0=No drift, leg holds position for full 5 seconds -: 1=Drift; leg falls before full 5 seconds but does not hit bed. -: 2=Some effort against gravity, leg falls to bed but some effort against gravity. -: 3=No effort against gravity, leg falls to bed immediately. -: 4=No movement. -: UN=Amputation, joint fusion; explain in comments. 7. Limb Ataxia: With eyes open instruct patient to: -: a. "Touch your finger to your nose". -: b. "Touch your heel to your león" -: 0=Absent -: 1=Present in one limb. -: 2=Present in two limbs. -: UN=Amputation or joint fusion; explain in comments. 8. Sensory: Test sensation using pinprick or noxious stimuli. Test as many body parts as possible. -: 0=Normal;no sensory loss -: 1=Mile to moderate sensory loss (patient feels pin prick but is less sharp on affected side). -: 2=Severe or total sensory loss. 9. Best Language: Instruct patient to: -: a. "Describe what you see in this picture." -: b. "Name the items in this picture." -: c. "Read these sentences." -: 0=No aphasia, normal -: 1=Mild to moderate aphasia. -: 2=Severe aphasia -: 3=Mute, global aphasia, no usable speech or auditory comprehension. 10. Articulation, Dysarthia: Instruct patient to: -: "Read these words" or "Repeat these words" -: 0=Normal -: 1=Mild to moderate; patient may slur some words but can be understood without difficulty. -: 2=Severe; patients speech so slurred as to be unintelligible in the absence of dysphasia. -: UN=Intubated or other physical barrier, explain in comments. 11. Extinction or inattention: 0=No abnormality -: 1= Visual, tactile, auditory, spatial, or personal inattention or extinction to bilateral simulation in one or the sensory modalities. -: 2=Profound abhijit-inattention or abhijit-inattention to more than one modality; does not recognize own hand. Total Score: 8 Notes: Can not obtain NIH due to altered mental status. <KENYON NELSON - Last Filed: 05/30/17 12:55> Discharge <KENYON NELSON - Last Filed: 05/30/17 12:55> - Discharge Admitting Provider: Hospitalist [facility] [place] [facility] Admitted: ELI Antonibsridhar Attestation: 05/30/17 19:01 I personally performed the services described in the documentation, reviewed and edited the documentation which was dictated to the scribe in my presence, and it accurately records my words and actions. <DORIS SCHWAB - Last Filed: 05/30/17 19:01> - Discharge Clinical Impression: CVA (cerebral vascular accident) Qualifiers: CVA mechanism: unspecified Qualified Code(s): I63.9 - Cerebral infarction, unspecified Hypertension Qualifiers: Hypertension type: unspecified Qualified Code(s): I10 - Essential (primary) hypertension Condition: Fair Disposition: ADMITTED INPATIENT Scribe Documentation - Scribe Written by Scribe:: Corinne Callaway, 05/30/2017 11:02 acting as scribe for :: Zach <KENYON NELSON - Last Filed: 05/30/17 12:55>
--- NOTE | 2017-05-30 10:40 | RADIOLOGY REPORT (SQ) ---
EXAM DESCRIPTION: CT HEAD WITHOUT COMPLETED DATE/TIME: 05/30/2017 10:23 am REASON FOR STUDY: stroke s/s COMPARISON: 10/26/2013 TECHNIQUE: Axial images acquired through the brain without intravenous contrast. Images reviewed wi th bone, brain and subdural windows. Images stored on PACS. All CT scanners at this facility use dose modulation, iterative reconstruction, and/or weight based d osing when appropriate to reduce radiation dose to as low as reasonably achievable (ALARA). [facility]: Dose Right [facility]: CareDose [facility]: Dose Right [facility]: Teradose 4D [facility]: [employer] RADIATION DOSE: mGy. LIMITATIONS: None. FINDINGS: VENTRICLES: Normal size and contour. CEREBRUM: Extensive left hemispheric infarct involving the left middle cerebral territory. This was acute on the previous CT scan of 2013. No intracranial hemorrhage. No mass effect. CEREBELLUM: No masses. No hemorrhage. No alteration of density. No evidence for acute infarction. EXTRAAXIAL SPACES: No fluid collections. No masses. ORBITS AND GLOBE: No intra- or extraconal masses. Normal contour of globe without masses. CALVARIUM: No fracture. PARANASAL SINUSES: No fluid or mucosal thickening. SOFT TISSUES: No mass or hematoma. OTHER: No other significant finding. IMPRESSION: No acute findings-no intracranial hemorrhage. Old left hemispheric infarct. EVIDENCE OF ACUTE STROKE: NO. COMMENT: Quality ID # [id number]: Final reports with documentation of one or more dose reduction techniques (e.g., Automated exposure control, adjustment of the mA and/or kV according to patient size, use of iterative reconstruction technique) TECHNICAL DOCUMENTATION: JOB ID: [id number] [employer]- All Rights Reserved
--- NOTE | 2017-05-30 10:41 | RADIOLOGY REPORT (SQ) ---
EXAM DESCRIPTION: CHEST SINGLE VIEW COMPLETED DATE/TIME: 05/30/2017 10:23 am REASON FOR STUDY: stroke s/s COMPARISON: 12/20/2016 EXAM PARAMETERS: NUMBER OF VIEWS: One view. TECHNIQUE: Single frontal radiographic view of the chest acquired. RADIATION DOSE: NA LIMITATIONS: None. FINDINGS: LUNGS AND PLEURA: No opacities, masses or pneumothorax. No pleural effusion. MEDIASTINUM AND HILAR STRUCTURES: No masses. Contour normal. HEART AND VASCULAR STRUCTURES: Heart normal in size. Normal vasculature. BONES: No acute findings. HARDWARE: Endotracheal and nasogastric tubes seen on older study had been removed. OTHER: No other significant finding. IMPRESSION: NO ACUTE RADIOGRAPHIC FINDING IN THE CHEST. TECHNICAL DOCUMENTATION: JOB ID: [id number] [employer]- All Rights Reserved
[2017-05-30 11:17] LABS: ABSOLUTE EOSINOPHILS # (AUTO) 0.1 10^3/uL (0.0-0.6); ABSOLUTE LYMPHOCYTES (AUTO) 2.1 10^3/uL (0.5-4.7); ABSOLUTE MONOCYTES (AUTO) 0.5 10^3/uL (0.1-1.4); ABSOLUTE NEUT (AUTO) 4.8 10^3/uL (1.7-8.2); BASOPHILS % (AUTO) 0.3 % (0-2); EOSINOPHILS % (AUTO) 1.7 % (0-6); HEMATOCRIT 46.6 % (37.9-51.0); LYMPHOCYTES % (AUTO) 27.8 % (13-45); MEAN CORPUSCULAR HEMOGLOBIN 27.6 pg (27.0-33.4); MEAN CORPUSCULAR HGB CONC 32.2 g/dL (32.0-36.0); MEAN CORPUSCULAR VOLUME 86 fl (80-97); MONOCYTES % (AUTO) 6.5 % (3-13); PLATELET COUNT 192 10^3/uL (150-450); RED BLOOD COUNT 5.44 10^6/uL (4.35-5.55); RED CELL DISTRIBUTION WIDTH 14.2 % (11.5-14.0); SEGMENTED NEUTROPHILS % (AUTO) 63.7 % (42-78); TOTAL CELLS COUNTED % (AUTO) 100 %; WHITE BLOOD COUNT 7.5 10^3/uL (4.0-10.5)
[2017-05-30 11:19] LABS: INTERNATIONAL RATION (INR) 0.96; PROTHROMBIN TIME 13.5 SEC (11.4-15.4)
[2017-05-30 11:20] LABS: PARTIAL THROMBOPLASTIN TIME 22.2 SEC (23.5-35.8)
[2017-05-30 11:34] LABS: ALANINE AMINOTRANSFERASE 22 U/L (21-72); ALBUMIN 3.5 g/dL (3.5-5.0); ALKALINE PHOSPHATASE 41 U/L (38-126); ANION GAP 8 (5-19); ASPARTATE AMINO TRANSFERASE 20 U/L (17-59); BILIRUBIN,DIRECT 0.4 mg/dL (0.0-0.4); BILIRUBIN,TOTAL 0.4 mg/dL (0.2-1.3); BLOOD UREA NITROGEN 16 mg/dL (7-20); CALCIUM 8.9 mg/dL (8.4-10.2); CARBON DIOXIDE 20 mmol/L (22-30); CHLORIDE 114 mmol/L (98-107); CREATINE KINASE 86 U/L (55-170); GLUCOSE 106 mg/dL (75-110); POTASSIUM 3.7 mmol/L (3.6-5.0); SODIUM 142.1 mmol/L (137-145); TOTAL PROTEIN 6.3 g/dL (6.3-8.2)
[2017-05-30 11:45] LABS: CREATINE KINASE MB 1.16 ng/mL (<4.55)
[2017-05-30 11:48] LABS: TROPONIN I < 0.012 ng/mL
--- NOTE | 2017-05-30 12:08 | RADIOLOGY REPORT (SQ) ---
EXAM DESCRIPTION: CTA HEAD COMPLETED DATE/TIME: 05/30/2017 11:26 am REASON FOR STUDY: acute R gaze dev, L weakness, ?major vessel clot COMPARISON: None. TECHNIQUE: Post IV contrast scanning, thin section axial imaging through the brain to evaluate the a rterial structures. Source and MIP images are saved and reviewed on PACS. Advanced 3D imaging as volume-rendering, MIPs, SSD performed? yes All CT scanners at this facility use dose modulation, iterative reconstruction, and/or weight based d osing when appropriate to reduce radiation dose to as low as reasonably achievable (ALARA). [facility]: Dose Right [facility]: CareDose [facility]: Dose Right [facility]: Teradose 4D [facility]: [employer] CONTRAST TYPE AND DOSE: contrast/concentration: Isovue 370.00 mg/ml; Total Contrast Delivered: 70.0 ml; Total Saline Delivered: 75.0 ml RENAL FUNCTION: Not available. LIMITATIONS: None. FINDINGS: [place] OF [place]: The anterior, middle, posterior cerebral arteries are all patent. No ev idence of aneurysm or focal stenosis. POSTERIOR CIRCULATION: The distal vertebral arteries are patent as is the basilar artery. No aneurysm . BRAIN: See separate report of the same date. IMPRESSION: NO CTA EVIDENCE OF STENOSIS OR ANEURYSM OF THE [place] OF ROJAS. TECHNICAL DOCUMENTATION: JOB ID: [id number] Quality ID # [id number]: Final reports with documentation of one or more dose reduction techniques (e.g., Au tomated exposure control, adjustment of the mA and/or kV according to patient size, use of iterative reconstruction technique) 2010 [employer]- All Rights Reserved
--- NOTE | 2017-05-30 12:18 | RADIOLOGY REPORT (SQ) ---
EXAM DESCRIPTION: CTA NECK COMPLETED DATE/TIME: 05/30/2017 11:26 am REASON FOR STUDY: acute R gaze dev, L weakness, ?major vessel clot COMPARISON: None. TECHNIQUE: Axial dynamic scanning technique with dynamic contrast enhancement through the extra-aircraft line assembler nial carotid and vertebral arteries. Multiplanar reconstruction. 3-D MIPS and Volume-rendered imag es acquired at the workstation and saved to PACS. Images are reviewed in soft tissue, bone, lung w indows. All CT scanners at this facility use dose modulation, iterative reconstruction, and/or weight based d osing when appropriate to reduce radiation dose to as low as reasonably achievable (ALARA). [facility]: Dose Right [facility]: CareDose [facility]: Dose Right [facility]: Teradose 4D [facility]: [employer] Referrals CONTRAST TYPE AND DOSE: See separate report of same date. RENAL FUNCTION: Not obtained. LIMITATIONS: Patient motion. FINDINGS: AORTIC ARCH: Normal three-vessel origin. Bilateral subclavian arteries are patent. No d issection. RIGHT CAROTIDS: Calcified plaque. No significant stenosis. No dissection. RIGHT VERTEBRAL: Patent. No dissection. LEFT CAROTIDS: Calcified plaque. No significant stenosis. No dissection. LEFT VERTEBRAL: Patent. No dissection. OTHER: No other significant finding. OTHER: 3-D reconstructions confirm findings. IMPRESSION: No evidence of dissection or significant stenosis. COMMENT: Quality ID #[id number]: Measurements of distal internal carotid diameter were used as the denomina tor for stenosis measurement. TECHNICAL DOCUMENTATION: JOB ID: [id number] Quality ID # [id number]: Final reports with documentation of one or more dose reduction techniques (e.g., Au tomated exposure control, adjustment of the mA and/or kV according to patient size, use of iterative reconstruction technique) 2010 [employer]- All Rights Reserved
[2017-05-30] MEDS ORDERED: NORMAL SALINE 1000 ML 1,000 ML IV PRN (15:56)
[2017-05-30] MEDS ORDERED: ACETAMINOPHEN 650 MG SUPP.RECT PR PRN (15:56)
[2017-05-30] MEDS ORDERED: ONDANSETRON HCL INJ/PF 4 MG/2 ML SDV IV PRN (15:56)
[2017-05-30] MEDS ORDERED: DEXTROSE 40% GEL 15 GM TUBE PO PRN ×2 (15:56)
[2017-05-30] MEDS ORDERED: GLUCAGON,HUMAN RECOMB 1 MG INJ SUBCUT PRN (15:56)
[2017-05-30] MEDS ORDERED: DEXTROSE 50%-WATER 25 GM/50 ML DISP.SYRIN IV PRN (15:56)
--- NOTE | 2017-05-30 16:30 | PDOC H&P ---
History of Present Illness Admission Date/PCP: 05/30/17 13:28 FIDEL HANDY DO Patient complains of: Pt brought to hospital with stroke symptoms History of Present Illness: The patient is an unfortunate 71-year-old -Mexican male who suffered a CVA 2 years ago. He had residual right-sided hemiparesis that was quite mild. He was able to ambulate. His swallowing eventually recuperated but he remains somewhat aphasic. He was brought to the emergency room after being found less responsive by the family. He was not able to walk and it first was not unable to follow commands was not able to follow commands. In the emergency room it was felt that the patient was having an acute CVA. CT of the brain as well as a CTA of the head and neck were all negative. I did speak at length with the patient's son. He states the patient has improved somewhat since being in the hospital. He has indicated that for now the family would like for him to remain a full code. In fact the patient had been unresponsive since I came into the room and when I started discussing CODE STATUS he turned his head and looked at me. He was unable to move. I asked him if he could blink once if he wanted to be a full code and have chest compressions and intubation and do everything we could or blink twice to not do that. The patient blinked once and it was quite clear that the patient himself wants to be a full code at this point. In any event review of systems cannot be obtained from the patient. The patient's son states that he has been frequently coughing since he came to the room and in fact he was coughing quite frequently during my visit. Past Medical History Cardiac Medical History: Reports: Congestive Heart Failure, Myocardial Infarction, Hypertension Pulmonary Medical History: Reports: Chronic Obstructive Pulmonary Disease (COPD) Psychiatric Medical History: Reports: Schizoaffective Disorder Denies: Depression Past Surgical History Past Surgical History: Reports: None Social History Information Source: Relative Lives with: Family Smoking Status: Current Every Day Smoker Frequency of Alcohol Use: None Hx Recreational Drug Use: No Drugs: None Hx Prescription Drug Abuse: No - Advance Directive Resuscitation Status: Full Code Surrogate healthcare decision maker:: Char Jenkins ( mother) [phone]. Family History Family History: CAD, COPD, Hypertension Parental Family History Reviewed: Yes Children Family History Reviewed: Yes Sibling(s) Family History Reviewed.: Yes Medication/Allergy Home Medications: Budesonide/Formoterol Fumarate [Symbicort 160-4.5 Mcg Inhaler] 2 puff IH Q12 Escitalopram Oxalate [Lexapro 10 mg Tablet] 10 mg PO DAILY 05/30/17 Olanzapine [Zyprexa 5 mg Tablet] 5 mg PO DAILY 05/30/17 Rivaroxaban [Xarelto 15 mg Tablet] 15 mg PO DAILY 05/30/17 Simvastatin [Zocor 20 mg Tablet] 20 mg PO QPM 05/30/17 Trazodone HCl [Desyrel] 100 mg PO QHS 05/30/17 Allergies/Adverse Reactions: levofloxacin Adverse Reaction (Verified 12/19/16 13:31) Hives Review of Systems ROS unobtainable: Due to mental status Physical Exam Vital Signs: Temp Pulse Resp BP Pulse Ox 97.8 F 78 22 H 133/76 H 96 05/30/17 10:20 05/30/17 13:35 05/30/17 14:21 05/30/17 14:21 05/30/17 14:21 General appearance: PRESENT: no acute distress, other - He is only minimally responsive Head exam: PRESENT: atraumatic, normocephalic Eye exam: PRESENT: conjunctiva pink, EOMI, PERRLA. ABSENT: scleral icterus Mouth exam: PRESENT: moist, tongue midline Neck exam: ABSENT: carotid bruit, JVD, lymphadenopathy, thyromegaly Respiratory exam: PRESENT: rhonchi, other - He has coarse rhonchi anteriorly. He will not really cooperate for an exam Cardiovascular exam: PRESENT: RRR. ABSENT: diastolic murmur, rubs, systolic murmur Pulses: PRESENT: normal dorsalis pedis pul Vascular exam: PRESENT: normal capillary refill GI/Abdominal exam: PRESENT: normal bowel sounds, soft. ABSENT: distended, guarding, mass, organolmegaly, rebound, tenderness Rectal exam: PRESENT: deferred Extremities exam: PRESENT: full ROM. ABSENT: calf tenderness, clubbing, pedal edema Musculoskeletal exam: ABSENT: ambulatory Neurological exam: PRESENT: awake - The patient did wake up and seemed to take great interest in our discussion of his CODE STATUS. He blinked once to indicate that he would want to be a full code., other - Nonverbal. He does respond to noxious stimuli in both of his lower extremities. He is able to move his right side. He was able to squeeze my hand quite weakly with his right upper extremity. He has no function and actually neglect of his left side. He is unable to speak. He also seems to be having difficulty swallowing Psychiatric exam: PRESENT: agitated, other - He became agitated when I was discussing his CODE STATUS. Skin exam: PRESENT: dry, intact, warm. ABSENT: cyanosis, rash Results Impressions: Chest X-Ray 05/30/17 10:16 IMPRESSION: NO ACUTE RADIOGRAPHIC FINDING IN THE CHEST. Head CT 05/30/17 10:16 IMPRESSION: No acute findings-no intracranial hemorrhage. Old left hemispheric infarct. EVIDENCE OF ACUTE STROKE: NO. Head CTA 05/30/17 10:33 IMPRESSION: NO CTA EVIDENCE OF STENOSIS OR ANEURYSM OF THE [place]. Neck CTA 05/30/17 10:33 IMPRESSION: No evidence of dissection or significant stenosis. Assessment & Plan - Diagnosis (1) Acute CVA (cerebrovascular accident) Is this a current diagnosis for this admission?: Yes Plan: The patient appears to have had a very serious CVA. I am going to obtain an MRI of the brain. I did discuss with the family the fact that he may not be able to swallow. Apparently he had issues after his previous CVA and he recuperated and has been tolerating a soft diet at home. The family would consider Dobbhoff tube with tube feedings if this became necessary. I am going to consult physical therapy, occupational therapy as well as speech therapy to evaluate his swallowing. Unfortunately he cannot safely swallow any pills so he will be made n.p.o. for now. He will be started on maintenance IV fluids. I am going to start these at 100 cc an hour but they may need to be cut back as he does have a history of diastolic congestive heart failure. He is unable to take a statin medication. We are going to place him on rectal aspirin. He also will continue his full dose anticoagulation. (2) Aspiration pneumonia Is this a current diagnosis for this admission?: Yes Plan: The patient has a significant cough. I suspect that he aspirated as he was having the CVA. He seems to be having difficulties. I will obtain a chest x- ray in the morning after he has received some IV fluids. I am going to empirically start the patient on IV Zosyn for now. (3) correction current use of anticoagulant Is this a current diagnosis for this admission?: Yes Plan: The patient has been on Xarelto since his CVA. I do not see any record that he has had atrial fibrillation. In any event he is unable to take Xarelto for now. I will place him on full dose Lovenox for the time being. (4) Expressive aphasia Is this a current diagnosis for this admission?: Yes Plan: The patient has had expressive aphasia since his previous CVA. The patient does seem to be aware and no where he is. The patient's family states that he was able to speak a little. Will get speech therapy to see the patient. (5) Schizophrenia Qualifiers: Schizophrenia type: unspecified Qualified Code(s): F20.9 - Schizophrenia, unspecified Is this a current diagnosis for this admission?: Yes Plan: The patient has underlying schizophrenia and was maintained on Zyprexa. He cannot safely swallow pills at this point. I will have IV Haldol available every 6 hours as needed for agitation. (6) Tobacco abuse Is this a current diagnosis for this admission?: Yes Plan: Unfortunately in spite of his multiple issues he continued to smoke. (7) Diastolic congestive heart failure Is this a current diagnosis for this admission?: Yes Plan: Currently the patient appears to be euvolemic. We will have to watch him closely as I am going to be giving him IV fluids. (8) Coronary artery disease Is this a current diagnosis for this admission?: Yes Plan: He has had an AR in the past. He is unable to tolerate any p.o. medications. He will take a rectal aspirin daily for now. I am going to trend his serial cardiac enzymes tonight. (9) Full code status Is this a current diagnosis for this admission?: Yes Plan: I did discuss this at length with the patient's son. The patient himself seemed to indicate that he wanted to be a full code. At this point I have clarified with the family that they would like chest compressions and escalation to the ICU for pressors or intubation. They want aggressive measures for now. - Time Time Spent: 50 to 70 Minutes - Inpatient Certification Based on my medical assessment, after consideration of the patient's comorbidities, presenting symptoms, or acuity I expect that the services needed warrant INPATIENT care.: Yes I certify that my determination is in accordance with my understanding of Medicare's requirements for reasonable and necessary INPATIENT services [42 CFR 412.3e].: Yes Medical Necessity: Need Close Monitoring Due to Risk of Patient Decompensation, Need For IV Fluids, Need for IV Antibiotics, Other - The patient will be admitted as an inpatient. He is clearly suffered an acute CVA. He has significant deficits as a result of this. There could be progression of his stroke. I have indicated to the family that we will wait for the next 48-72 hours to see how he does. Further discussions regarding goals of care need to be had after we complete his workup and see how he has done a couple of days. Also the patient may be developing pneumonia and will be requiring parenteral antibiotics as well.
[2017-05-30 17:43] LABS: PARTIAL THROMBOPLASTIN TIME 30.8 SEC (23.5-35.8); PROTHROMBIN TIME 13.9 SEC (11.4-15.4)
[2017-05-30 18:07] LABS: CREATINE KINASE MB 1.75 ng/mL (<4.55)
[2017-05-30 18:15] LABS: TROPONIN I 0.039 ng/mL
--- NOTE | 2017-05-30 18:20 | RADIOLOGY REPORT (SQ) ---
EXAM DESCRIPTION: MRI HEAD WITHOUT COMPLETED DATE/TIME: 05/30/2017 6:05 pm REASON FOR STUDY: cva COMPARISON: None. TECHNIQUE: Multiplanar imaging includes non-contrasted T1, T2, FLAIR, and diffusion with ADC map seq uences. Images stored on PACS. LIMITATIONS: None. FINDINGS: ANATOMY: No anomalies. Normal vascular flow voids. Pituitary fossa normal. CSF SPACES: Atrophy induced prominence of ventricles and CSF spaces. CEREBRUM: High signal intensity lesions scattered throughout the white matter on FLAIR imaging with d istribution suggesting micro-vascular ischemic changes. No evidence of hemorrhage, mass, or extraaxi al fluid collection. Old left MCA infarct. POSTERIOR FOSSA: No signal alteration. No hemorrhage. No edema, masses or mass effect. Internal carmen tory canals, cerebello-pontine angles, mastoids normal. Old pontine infarct. DIFFUSION IMAGING: Restricted diffusion in the basal ganglia internal capsule on the right. ORBITS: No masses. Globes normal. PARANASAL SINUSES: No fluid levels. Mucosa normal. OTHER: No other significant finding. IMPRESSION: Acute infarct external capsule basal ganglia on the right. Chronic left MCA distribution infarct. Atrophy and microvascular ischemia. EVIDENCE OF ACUTE STROKE: Yes RIGHT MCA TECHNICAL DOCUMENTATION: JOB ID: [id number] [employer]- All Rights Reserved
[2017-05-30] MEDS: IPRATROPIUM/ALBUTEROL 0.5-2.5 MG/3 ML AMPUL NEB SCH (20:56)
[2017-05-30] MEDS ORDERED: PIPERACILLIN SODIUM/TAZOBACTAM 2.25 GM in NORMAL SALINE 50 ML IV SCH (21:00)
[2017-05-30] MEDS: FAMOTIDINE INJ/PF 20 MG/2 ML SDV IV SCH (21:42)
[2017-05-30] MEDS: ENOXAPARIN SODIUM INJ 80 MG/0.8 ML DISP.SYRIN SUBCUT SCH (21:43)
[2017-05-30] MEDS: PIPERACILLIN SODIUM/TAZOBACTAM 2.25 GM in NORMAL SALINE 100 ML IV SCH (22:02)
[2017-05-30 22:40] LABS: CREATINE KINASE MB 2.26 ng/mL (<4.55)
[2017-05-30 22:44] LABS: TROPONIN I 0.04 ng/mL
[2017-05-31 03:23] LABS: HEMATOCRIT 44.4 % (37.9-51.0); HEMOGLOBIN 14.7 g/dL (13.5-17.0); MEAN CORPUSCULAR HEMOGLOBIN 27.9 pg (27.0-33.4); MEAN CORPUSCULAR VOLUME 84 fl (80-97); PLATELET COUNT 215 10^3/uL (150-450); RED BLOOD COUNT 5.27 10^6/uL (4.35-5.55); RED CELL DISTRIBUTION WIDTH 14.2 % (11.5-14.0); WHITE BLOOD COUNT 7.6 10^3/uL (4.0-10.5)
[2017-05-31 03:48] LABS: ALANINE AMINOTRANSFERASE 25 U/L (21-72); ALBUMIN 3.9 g/dL (3.5-5.0); ALKALINE PHOSPHATASE 48 U/L (38-126); ANION GAP 11 (5-19); ASPARTATE AMINO TRANSFERASE 24 U/L (17-59); BILIRUBIN,DIRECT 0.4 mg/dL (0.0-0.4); BILIRUBIN,TOTAL 0.6 mg/dL (0.2-1.3); BLOOD UREA NITROGEN 16 mg/dL (7-20); CALCIUM 10.6 mg/dL (8.4-10.2); CARBON DIOXIDE 21 mmol/L (22-30); CHLORIDE 112 mmol/L (98-107); CHOLESTEROL 235.26 mg/dL (0-200); CREATINE KINASE 603 U/L (55-170); GLUCOSE 122 mg/dL (75-110); PHOSPHORUS 2.7 mg/dL (2.5-4.5); POTASSIUM 4.5 mmol/L (3.6-5.0); SODIUM 144.2 mmol/L (137-145); TRIGLYCERIDES 76 mg/dL (<150)
[2017-05-31 03:59] LABS: DIRECT LDL 131 mg/dL (<100)
[2017-05-31 04:00] LABS: CREATINE KINASE MB 1.74 ng/mL (<4.55); TROPONIN I 0.035 ng/mL
[2017-05-31] MEDS: PIPERACILLIN SODIUM/TAZOBACTAM 2.25 GM in NORMAL SALINE 100 ML IV SCH (04:13)
--- NOTE | 2017-05-31 08:01 | RADIOLOGY REPORT (SQ) ---
EXAM DESCRIPTION: CHEST SINGLE VIEW CLINICAL HISTORY: 71 years, Male, cough COMPARISON: 05/30/2017 NUMBER OF VIEWS: 1 FINDINGS: Normal lung volume, clear parenchyma, normal cardiac silhouette, and no significant defect of the bony thorax. IMPRESSION: No acute cardiopulmonary findings.
[2017-05-31] MEDS: IPRATROPIUM/ALBUTEROL 0.5-2.5 MG/3 ML AMPUL NEB SCH ×3 (08:52→19:57)
--- NOTE | 2017-05-31 09:36 | EKG REPORT ---
SEVERITY:- ABNORMAL ECG - SINUS RHYTHM LEFT ANTERIOR FASCICULAR BLOCK ANTEROLATERAL INFARCT, OLD : Confirmed by: Frantz Dove 31-May-2017 09:36:30
--- NOTE | 2017-05-31 09:36 | EKG REPORT ---
SEVERITY:- ABNORMAL ECG - SINUS RHYTHM LEFT ANTERIOR FASCICULAR BLOCK ANTEROLATERAL INFARCT, AGE INDETERMINATE : Confirmed by: Frantz Dove 31-May-2017 09:36:26
[2017-05-31] MEDS: FAMOTIDINE INJ/PF 20 MG/2 ML SDV IV SCH ×2 (11:29→21:14)
[2017-05-31] MEDS: ENOXAPARIN SODIUM INJ 80 MG/0.8 ML DISP.SYRIN SUBCUT SCH ×2 (11:30→21:14)
[2017-05-31] MEDS: NORMAL SALINE 1000 ML 1,000 ML IV PRN ×2 (11:31→17:18)
[2017-05-31] MEDS ORDERED: DEXTROSE 40% GEL 15 GM TUBE PO PRN (14:11)
[2017-05-31] MEDS ORDERED: NICOTINE 7 MG/24 HR PATCH.TD24 TD PRN (14:34)
--- NOTE | 2017-05-31 14:35 | PDOC PROGRESS REPORT ---
Subjective Progress Note for:: 05/31/17 Subjective:: The patient is a 71-year-old male with a past medical history of a CVA approximately 2 years ago that resulted in mild right-sided hemiparesis, congestive heart failure, [place], hypertension, COPD, and schizoaffective disorder. He was admitted on 05/30/17 with an acute CVA to the external capsule being sold ganglia on the right side resulting in profound left hemiparesis, aphasia, dysphasia, and somnolence. He is seen on morning rounds still in the emergency department. He is currently resting comfortably on room air. He does wake easily upon my entering the room and makes eye contact. He attempts and appears to appropriately answer yes or no questions through eye blinking and nodding of the head. The patient's sister and nephew are present. They indicate the patient wishes to be a full code and would wish to pursue a PEG tube if his swallowing does not improve. The patient does appear to confirm this through nodding his head yes. All questions and concerns were addressed at this time. Reason For Visit: CEREBROVASCULAR ACCIDENT (CVA) Physical Exam Vital Signs: Temp Pulse Resp BP Pulse Ox 97.9 F 91 22 H 134/76 H 98 05/30/17 22:00 05/31/17 13:51 05/31/17 14:01 05/31/17 14:00 05/31/17 14:01 General appearance: PRESENT: no acute distress, well-developed, well-nourished, other - Overweight Head exam: PRESENT: atraumatic, normocephalic Eye exam: PRESENT: conjunctiva pink, EOMI, PERRLA. ABSENT: scleral icterus Ear exam: PRESENT: normal external ear exam Mouth exam: PRESENT: moist, tongue midline Neck exam: ABSENT: carotid bruit, JVD, lymphadenopathy, thyromegaly Respiratory exam: PRESENT: clear to auscultation eric, symmetrical, unlabored. ABSENT: rales, rhonchi, wheezes Cardiovascular exam: PRESENT: RRR, +S1, +S2. ABSENT: diastolic murmur, rubs, systolic murmur Pulses: PRESENT: normal dorsalis pedis pul Vascular exam: PRESENT: normal capillary refill GI/Abdominal exam: PRESENT: normal bowel sounds, soft. ABSENT: distended, guarding, mass, organolmegaly, rebound, tenderness Rectal exam: PRESENT: deferred Extremities exam: PRESENT: full ROM. ABSENT: calf tenderness, clubbing, pedal edema Neurological exam: PRESENT: alert, awake, other - The patient was awake and alert, he does attempt to communicate through facial expressions; thinking, nodding, attempts to smile. He does appear to follow the conversation and answer questions appropriately through head-nodding. He has profound weakness to the right upper extremity. The patient does move his right great toe, although he is noted to have some muscle twitching and I cannot confirm that this was intentional movement. The patient failed his initial swallow evaluation this morning.. ABSENT: motor sensory deficit Psychiatric exam: PRESENT: appropriate affect, normal mood. ABSENT: homicidal ideation, suicidal ideation Skin exam: PRESENT: dry, intact, warm. ABSENT: cyanosis, rash Results Laboratory Results: 05/31/17 03:10 05/31/17 03:10 05/31/17 05/31/17 05/31/17 03:10 03:10 03:10 WBC 7.6 RBC 5.27 Hgb 14.7 Hct 44.4 MCV 84 MCH 27.9 MCHC 33.0 RDW 14.2 H Plt Count 215 Sodium 144.2 Potassium 4.5 Chloride 112 H Carbon Dioxide 21 L Anion Gap 11 BUN 16 Creatinine 1.42 H Est GFR ( Amer) > 60 Est GFR (Non-Af Amer) 49 L Glucose 122 H Calcium 10.6 H Phosphorus 2.7 Magnesium 1.6 Total Bilirubin 0.6 AST 24 ALT 25 Alkaline Phosphatase 48 Total Protein 7.0 Albumin 3.9 Triglycerides 76 Cholesterol 235.26 H LDL Cholesterol Direct 131 H VLDL Cholesterol 15.0 HDL Cholesterol 74 TSH 2.20 05/30/17 05/30/17 05/30/17 17:17 17:17 22:00 Creatine Kinase 192 H 614 H CK-MB (CK-2) 1.75 Troponin I 0.039 NT-Pro-B Natriuret Pep 05/30/17 05/31/17 05/31/17 22:00 03:10 03:10 Creatine Kinase 603 H CK-MB (CK-2) 2.26 1.74 Troponin I 0.040 0.035 NT-Pro-B Natriuret Pep 896 Impressions: Head MRI 05/30/17 00:00 IMPRESSION: Acute infarct external capsule basal ganglia on the right. Chronic left MCA distribution infarct. Atrophy and microvascular ischemia. EVIDENCE OF ACUTE STROKE: Yes RIGHT MCA Head CT 05/30/17 10:16 IMPRESSION: No acute findings-no intracranial hemorrhage. Old left hemispheric infarct. EVIDENCE OF ACUTE STROKE: NO. Head CTA 05/30/17 10:33 IMPRESSION: NO CTA EVIDENCE OF STENOSIS OR ANEURYSM OF THE [place]. Neck CTA 05/30/17 10:33 IMPRESSION: No evidence of dissection or significant stenosis. Chest X-Ray 05/31/17 06:00 IMPRESSION: No acute cardiopulmonary findings. Assessment & Plan - Diagnosis (1) Acute CVA (cerebrovascular accident) Is this a current diagnosis for this admission?: Yes Plan: MRI of the head reveals an acute infarction of the external capsule basal ganglia on the right. Chronic left MCA distribution infarct. Atrophy and microvascular ischemia. A CTA of the head did not demonstrate stenosis or aneurysm of the [place]. A CTA of the neck did not demonstrate significant stenosis of the carotids. Echocardiogram is pending. Lipid panel demonstrates an elevated LDL at 131, HDL of 74, total cholesterol of 235. At this time the patient remains n.p.o. and is not receiving statin therapy. Hemoglobin A1c is 6.2%. He is admitted to [facility] on continuous cardiac telemetry. We will allow for permissive hypertension. The patient was chronically anticoagulated on Xarelto as an outpatient; he is currently receiving full dose Lovenox. PT/OT/ST to evaluate and treat per protocols. Discussion with the agent and family with regard to to realistic probability of meaningful recovery is had. The patient and family members do wish to continue with a full CODE STATUS and would like to pursue a PEG tube should speech therapy make recommendations against oral feedings. (2) Aspiration pneumonia Is this a current diagnosis for this admission?: Yes Plan: The patient was noted to have a significant cough upon admission. There was concern that he may have aspirated during the CVA event. Her chest x-ray did not reveal acute cardiopulmonary processes and follow-up imaging this morning is identical. The patient has remained afebrile overnight. His WBC count is normal. His lung sounds are clear. He is maintaining oxygen saturations while on room air. I am less concerned that he has had an aspiration event, however, I did have a long discussion with the patient and family members about this being a significant risk for him in the future. We will discontinue IV antibiotics at this time. Aspiration precautions are instituted. He does remain n.p.o. until cleared by speech therapy. (3) Coronary artery disease Is this a current diagnosis for this admission?: Yes Plan: Hx of OH. Currently n.p.o. We will continue full dose aspirin per rectum. He is currently on full dose Lovenox. We will resume statin once patient is able to safely swallow. (4) Diastolic congestive heart failure Is this a current diagnosis for this admission?: Yes Plan: The patient appears to be euvolemic. Will monitor strict I's and O's and daily weights. (5) Expressive aphasia Is this a current diagnosis for this admission?: Yes Plan: The patient did have some moderate expressive aphasia which appears to be worsened per family report. Speech therapy has been consulted. (6) correction current use of anticoagulant Is this a current diagnosis for this admission?: Yes (7) Tobacco abuse Is this a current diagnosis for this admission?: Yes Plan: Smoking cessation is encouraged and nicotine replacement therapies have been provided. (8) Schizoaffective disorder Qualifiers: Schizoaffective disorder type: unspecified Qualified Code(s): F25.9 - Schizoaffective disorder, unspecified Is this a current diagnosis for this admission?: Yes Plan: The patient does have an underlying schizoaffective disorder who is maintained on Zyprexa. He cannot safely swallow at this point. IV Haldol is available every 6 hours as needed for agitation. (9) Full code status Is this a current diagnosis for this admission?: Yes - Time Time Spent with patient: 25-34 minutes Medications reviewed and adjusted accordingly: Yes - Inpatient Certification Based on my medical assessment, after consideration of the patient's comorbidities, presenting symptoms, or acuity I expect that the services needed warrant INPATIENT care.: Yes I certify that my determination is in accordance with my understanding of Medicare's requirements for reasonable and necessary INPATIENT services [42 CFR 412.3e].: Yes Medical Necessity: Need Close Monitoring Due to Risk of Patient Decompensation
[2017-06-01 00:43] LABS: APPEARANCE,URINE SLIGHTLY-CLOUDY; BILIRUBIN,URINE NEGATIVE (NEGATIVE); COLOR,URINE YELLOW; GLUCOSE, URINE NEGATIVE (NEGATIVE); KETONES,URINE TRACE mg/dL (NEGATIVE); LEUKOCYTE ESTERASE,URINE NEGATIVE (NEGATIVE); NITRITE,URINE NEGATIVE (NEGATIVE); PROTEIN,URINE NEGATIVE (NEGATIVE); URINE SPECIFIC GRAVITY 1.023; UROBILINOGEN,URINE NEGATIVE mg/dL (<2.0)
[2017-06-01] MEDS: NORMAL SALINE 1000 ML 1,000 ML IV PRN (02:48)
[2017-06-01 07:16] LABS: HEMATOCRIT 41.1 % (37.9-51.0); HEMOGLOBIN 13.3 g/dL (13.5-17.0); MEAN CORPUSCULAR HEMOGLOBIN 27.5 pg (27.0-33.4); MEAN CORPUSCULAR HGB CONC 32.3 g/dL (32.0-36.0); MEAN CORPUSCULAR VOLUME 85 fl (80-97); PLATELET COUNT 187 10^3/uL (150-450); RED BLOOD COUNT 4.82 10^6/uL (4.35-5.55); RED CELL DISTRIBUTION WIDTH 14.5 % (11.5-14.0); WHITE BLOOD COUNT 6.5 10^3/uL (4.0-10.5)
[2017-06-01 07:39] LABS: ANION GAP 10 (5-19); BLOOD UREA NITROGEN 14 mg/dL (7-20); CALCIUM 9.8 mg/dL (8.4-10.2); CARBON DIOXIDE 21 mmol/L (22-30); CHLORIDE 116 mmol/L (98-107); CREATINE KINASE 937 U/L (55-170); GLUCOSE 84 mg/dL (75-110); POTASSIUM 3.9 mmol/L (3.6-5.0); SODIUM 146.5 mmol/L (137-145)
[2017-06-01] MEDS ORDERED: RINGERS SOLUTION,LACTATED 1,000 ML IV ONE (07:52)
[2017-06-01] MEDS: IPRATROPIUM/ALBUTEROL 0.5-2.5 MG/3 ML AMPUL NEB SCH ×3 (07:58→20:10)
[2017-06-01] MEDS ORDERED: PHARMACY COMMUNICATION ORDER MC NR (10:45)
[2017-06-01] MEDS ORDERED: DEXTROSE 40% GEL 15 GM TUBE NG PRN ×2 (11:00)
[2017-06-01] MEDS: FAMOTIDINE INJ/PF 20 MG/2 ML SDV IV SCH ×2 (11:00→22:16)
[2017-06-01] MEDS: RINGERS SOLUTION,LACTATED 1,000 ML IV PRN ×2 (11:02→18:06)
[2017-06-01] MEDS: ENOXAPARIN SODIUM INJ 80 MG/0.8 ML DISP.SYRIN SUBCUT SCH ×2 (11:03→22:18)
--- NOTE | 2017-06-01 11:07 | PDOC PROGRESS REPORT ---
Subjective Progress Note for:: 06/01/17 Subjective:: The patient is a 71-year-old male with a past medical history of a CVA approximately 2 years ago that resulted in mild right-sided hemiparesis, congestive heart failure, [place], hypertension, COPD, and schizoaffective disorder. He was admitted on 05/30/17 with an acute CVA to the external capsule being sold ganglia on the right side resulting in profound left hemiparesis, aphasia, dysphasia, and somnolence. He is seen on morning rounds resting comfortably on room air. He is awake, makes eye contact, and appropriately gestures with facial expressions and head- nodding to participate in the discussion regarding his health and care. His nephew is present. His only concern at this time is generalized body aches and muscle pain and spasms of both legs overnight. Reason For Visit: CEREBROVASCULAR ACCIDENT (CVA) Physical Exam Vital Signs: Temp Pulse Resp BP Pulse Ox 98.7 F 85 18 140/90 H 94 06/01/17 07:56 06/01/17 07:58 06/01/17 07:58 06/01/17 09:01 06/01/17 07:58 Intake & Output 05/31/17 06/01/17 06/02/17 06:59 06:59 06:59 Intake Total 1004 Output Total 150 Balance 854 Weight 78.6 kg General appearance: PRESENT: no acute distress, well-developed, well-nourished, other - Overweight Head exam: PRESENT: atraumatic, normocephalic Eye exam: PRESENT: conjunctiva pink, EOMI, PERRLA. ABSENT: scleral icterus Ear exam: PRESENT: normal external ear exam Mouth exam: PRESENT: moist, tongue midline Neck exam: ABSENT: carotid bruit, JVD, lymphadenopathy, thyromegaly Respiratory exam: PRESENT: clear to auscultation eric, symmetrical, unlabored. ABSENT: rales, rhonchi, wheezes Cardiovascular exam: PRESENT: RRR, +S1, +S2. ABSENT: diastolic murmur, rubs, systolic murmur Pulses: PRESENT: normal dorsalis pedis pul Vascular exam: PRESENT: normal capillary refill GI/Abdominal exam: PRESENT: normal bowel sounds, soft. ABSENT: distended, guarding, mass, organolmegaly, rebound, tenderness Rectal exam: PRESENT: deferred Extremities exam: PRESENT: full ROM. ABSENT: calf tenderness, clubbing, pedal edema Neurological exam: PRESENT: alert, awake, oriented to person, oriented to place , oriented to situation, other - The patient is awake and alert, he does successfully communicate through facial expressions, blinking, and nodding. His symptoms are much more clear and deliberate today. He was able to exhibit slight movement of the left upper extremity, but no hand inserter operator. There was no movement of the LLE today. The patient shakes his head no for equal sensation, indicating that he cannot feel his left side. Minimal improvement made during swallow evaluation this morning.. ABSENT: motor sensory deficit Psychiatric exam: PRESENT: appropriate affect, normal mood. ABSENT: homicidal ideation, suicidal ideation Skin exam: PRESENT: dry, intact, warm. ABSENT: cyanosis, rash Results Laboratory Results: 06/01/17 06:46 06/01/17 06:46 05/31/17 06/01/17 06/01/17 23:15 06:46 06:46 WBC 6.5 RBC 4.82 Hgb 13.3 L Hct 41.1 MCV 85 MCH 27.5 MCHC 32.3 RDW 14.5 H Plt Count 187 Sodium 146.5 H Potassium 3.9 Chloride 116 H Carbon Dioxide 21 L Anion Gap 10 BUN 14 Creatinine 1.37 H Est GFR ( Amer) > 60 Est GFR (Non-Af Amer) 51 L Glucose 84 Calcium 9.8 Urine Color YELLOW Urine Appearance SLIGHTLY-CLOUDY Urine pH 5.0 Ur Specific [place] 1.023 Urine Protein NEGATIVE Urine Glucose (UA) NEGATIVE Urine Ketones TRACE H Urine Blood NEGATIVE Urine Nitrite NEGATIVE Ur Leukocyte Esterase NEGATIVE Urine RBC (Auto) 1 05/30/17 05/30/17 05/30/17 17:17 17:17 22:00 Creatine Kinase 192 H 614 H CK-MB (CK-2) 1.75 Troponin I 0.039 NT-Pro-B Natriuret Pep 05/30/17 05/31/17 05/31/17 22:00 03:10 03:10 Creatine Kinase 603 H CK-MB (CK-2) 2.26 1.74 Troponin I 0.040 0.035 NT-Pro-B Natriuret Pep 896 06/01/17 06:46 Creatine Kinase 937 H CK-MB (CK-2) Troponin I NT-Pro-B Natriuret Pep Impressions: Head MRI 05/30/17 00:00 IMPRESSION: Acute infarct external capsule basal ganglia on the right. Chronic left MCA distribution infarct. Atrophy and microvascular ischemia. EVIDENCE OF ACUTE STROKE: Yes RIGHT MCA Head CT 05/30/17 10:16 IMPRESSION: No acute findings-no intracranial hemorrhage. Old left hemispheric infarct. EVIDENCE OF ACUTE STROKE: NO. Head CTA 05/30/17 10:33 IMPRESSION: NO CTA EVIDENCE OF STENOSIS OR ANEURYSM OF THE [place]. Neck CTA 05/30/17 10:33 IMPRESSION: No evidence of dissection or significant stenosis. Chest X-Ray 05/31/17 06:00 IMPRESSION: No acute cardiopulmonary findings. Assessment & Plan - Diagnosis (1) Acute CVA (cerebrovascular accident) Is this a current diagnosis for this admission?: Yes Plan: MRI of the head reveals an acute infarction of the external capsule basal ganglia on the right. Chronic left MCA distribution infarct. Atrophy and microvascular ischemia. A CTA of the head did not demonstrate stenosis or aneurysm of the [place]. A CTA of the neck did not demonstrate significant stenosis of the carotids. Echocardiogram is pending. Lipid panel demonstrates an elevated LDL at 131, HDL of 74, total cholesterol of 235. At this time the patient remains n.p.o. and is not receiving statin therapy. Hemoglobin A1c is 6.2%. He is admitted to [facility] on continuous cardiac telemetry. We will allow for permissive hypertension. The patient was chronically anticoagulated on Xarelto as an outpatient; he is currently receiving full dose Lovenox. PT/OT/ST to evaluate and treat per protocols. (2) Dysphasia Is this a current diagnosis for this admission?: Yes Plan: Related to CVA. The patient is being followed closely by speech therapy who recommended initiating alternative methods for nutrition/hydration. The patient and nephew have asked for a NG tube for tube feeds to allow the patient more time to assess swallow. The patient will likely require a PEG prior to discharge. We will ask the registered dietitian to meet with the patient and make dietary recommendations. He is currently receiving IV fluids for hydration. We are monitoring Accu-Cheks every 6 hours with Humalog sliding scale insulin as needed and hypoglycemia protocol in place. Aspiration precautions. (3) Coronary artery disease Is this a current diagnosis for this admission?: Yes Plan: Hx of [place]. Currently n.p.o. We will continue full dose aspirin per rectum. He is currently on full dose Lovenox. We will resume statin once patient is able to safely swallow. (4) Diastolic congestive heart failure Is this a current diagnosis for this admission?: Yes Plan: The patient appears to be euvolemic. Will monitor strict I's and O's and daily weights. (5) Expressive aphasia Is this a current diagnosis for this admission?: Yes Plan: The patient did have some moderate expressive aphasia which appears to be worsened per family report. Speech therapy has been consulted. (6) FPC current use of anticoagulant Is this a current diagnosis for this admission?: Yes (7) Tobacco abuse Is this a current diagnosis for this admission?: Yes Plan: Smoking cessation is encouraged and nicotine replacement therapies have been provided. (8) Schizoaffective disorder Qualifiers: Schizoaffective disorder type: unspecified Qualified Code(s): F25.9 - Schizoaffective disorder, unspecified Is this a current diagnosis for this admission?: Yes Plan: The patient does have an underlying schizoaffective disorder who is maintained on Zyprexa. He cannot safely swallow at this point. IV Haldol is available every 6 hours as needed for agitation. (9) Full code status Is this a current diagnosis for this admission?: Yes (10) Aspiration pneumonia Is this a current diagnosis for this admission?: Yes Plan: Ruled out. The patient was noted to have a significant cough upon admission. There was concern that he may have aspirated during the CVA event. His chest x-ray did not reveal acute cardiopulmonary processes and follow-up imaging this morning is identical. The patient has remained afebrile overnight. His WBC count is normal. His lung sounds are clear. He is maintaining oxygen saturations while on room air. Aspiration precautions are instituted. - Time Time Spent with patient: 25-34 minutes Medications reviewed and adjusted accordingly: Yes Anticipated discharge: Home
--- NOTE | 2017-06-01 13:09 | Physician Advisory Note ---
Physician Advisor ProgressNote .: Pursuant to the plan for [facility], I have reviewed the medical record for this patient. Physician Advisor Statement: Excellent documentation of aspiration PNA being considered but ruled out. Please consider documenting, if you agree: 1. "chronic diastolic CHF" (need to state acuity as well as type, each time) 2. "Acute Rt-sided thrombotic [or embolic, or other etiology] MCA artery* CVA with cerebral infarction, with dysphagia & aphasia, [resolved or improved or persistent] " Thanks! CK
--- NOTE | 2017-06-01 14:32 | RADIOLOGY REPORT (SQ) ---
EXAM DESCRIPTION: KUB/ABDOMEN (SINGLE VIEW) COMPLETED DATE/TIME: 06/01/2017 2:12 pm REASON FOR STUDY: Check Placement of NG Tube COMPARISON: December 2016 NUMBER OF VIEWS: One view. TECHNIQUE: Supine radiographic image of the abdomen acquired. LIMITATIONS: None. FINDINGS: BOWEL GAS PATTERN: Normal bowel gas pattern. No dilated loops. CALCIFICATIONS: No suspicious calcifications. SOFT TISSUES: No gross mass or suggestion of organomegaly. HARDWARE: NG tube is identified with its tip at the level of the proximal stomach in the left upper q uadrant. BONES: No acute fracture. No worrisome bone lesions. OTHER: No other significant finding. IMPRESSION: NG tube with its tip at the level of the proximal stomach in the left upper quadrant. O ther findings as noted above TECHNICAL DOCUMENTATION: JOB ID: [id number] [employer]- All Rights Reserved
--- NOTE | 2017-06-01 19:16 | XCELERA REPORT ---
[address] [address] Transthoracic Echocardiogram Report Name: DALY PORTILLO SR Age: 71 yrs Gender: Male : 1945 Patient Status: Inpatient Patient Location: [address] [place] [address] Study Date: 06/01/2017 11:16 AM Height: 70 in Weight: 180 lb BSA: 2.0 m2 Procedure: A complete two-dimensional transthoracic echocardiogram was performed (2D, M-mode, spectral and color flow Doppler). The study was technically difficult with many images being suboptimal in quality. Reason For Study: acute CVA Ordering Physician: ITA JUAREZ Performed By: Debbie Dewtit Interpretation Summary LV EF is 45% LV diastolic function could not be adequately assessed. There is apical wall akinesis The right ventricular systolic function is normal. The left atrial size is normal. The right atrium is normal. There is a trace amount of mitral regurgitation There is no mitral valve stenosis. No aortic regurgitation is present. There is no aortic valve stenosis There is no tricuspid stenosis. No tricuspid regurgitation. The aortic root is not well visualized but is probably normal size. The inferior vena cava appeared normal and decreased > 50% with respiration (RAP 5-10 mmHg) There is no pericardial effusion. MMode/2D Measurements & Calculations RVDd: 2.8 cm LVIDd: 6.0 cm FS: 28.4 % Ao root diam: 3.2 cm IVSd: 0.71 cm LVIDs: 4.3 cm EDV(Teich): 177.7 ml LVPWd: 0.71 cm ESV(Teich): 81.8 ml Ao root area: 8.2 cm2 EF(Teich): 54.0 % Doppler Measurements & Calculations MV E max aura: MV dec slope: Ao V2 max: LV V1 max P.8 cm/sec 145.2 cm/sec 2.8 mmHg 626.2 cm/sec2 Ao max PG: LV V1 max: MV dec time: 8.4 mmHg 84.0 cm/sec 0.16 sec PA V2 max: 69.8 cm/sec PA max P.9 mmHg Left Ventricle The left ventricle is grossly normal size. There is normal left ventricular wall thickness. Left ventricular systolic function is mildly reduced. LV EF is 45%. LV diastolic function could not be adequately assessed. There is apical wall akinesis. Right Ventricle The right ventricle is grossly normal size. There is normal right ventricular wall thickness. The right ventricular systolic function is normal. Atria The right atrium is normal. The left atrial size is normal. Interarterial septum not well visualized and not well dopplered. Cannot comment on ASD/PFO presence. Mitral Valve The mitral valve is grossly normal. There is no mitral valve stenosis. There is a trace amount of mitral regurgitation. Aortic Valve The aortic valve is grossly normal. There is no aortic valve stenosis. No aortic regurgitation is present. Tricuspid Valve The tricuspid valve is not well visualized, but is grossly normal. There is no tricuspid stenosis. No tricuspid regurgitation. Pulmonic Valve The pulmonic valve is not well visualized. Great Vessels The aortic root is not well visualized but is probably normal size. The inferior vena cava appeared normal and decreased > 50% with respiration (RAP 5-10 mmHg). Effusions There is no pericardial effusion. : ITA JUAREZ > Frantz Dove
[2017-06-01] MEDS ORDERED: HYDRALAZINE HCL INJ/PF 20 MG/1 ML SDV IV PRN (20:52)
[2017-06-01] MEDS: ATORVASTATIN CALCIUM 80 MG TABLET PO SCH (22:18)
[2017-06-01] MEDS: TRAZODONE HCL 50 MG TABLET PO SCH (22:18)
[2017-06-02 05:14] LABS: HEMATOCRIT 43.4 % (37.9-51.0); MEAN CORPUSCULAR HEMOGLOBIN 27.5 pg (27.0-33.4); MEAN CORPUSCULAR HGB CONC 32.2 g/dL (32.0-36.0); MEAN CORPUSCULAR VOLUME 85 fl (80-97); PLATELET COUNT 181 10^3/uL (150-450); RED BLOOD COUNT 5.09 10^6/uL (4.35-5.55); RED CELL DISTRIBUTION WIDTH 14.5 % (11.5-14.0)
[2017-06-02 05:18] LABS: ANION GAP 13 (5-19); BLOOD UREA NITROGEN 10 mg/dL (7-20); CALCIUM 9.9 mg/dL (8.4-10.2); CARBON DIOXIDE 21 mmol/L (22-30); CHLORIDE 110 mmol/L (98-107); CREATINE KINASE 620 U/L (55-170); GLUCOSE 79 mg/dL (75-110); POTASSIUM 3.7 mmol/L (3.6-5.0); SODIUM 143.8 mmol/L (137-145)
[2017-06-02] MEDS: IPRATROPIUM/ALBUTEROL 0.5-2.5 MG/3 ML AMPUL NEB SCH ×3 (08:11→20:02)
[2017-06-02] MEDS: RINGERS SOLUTION,LACTATED 1,000 ML IV PRN (08:45)
[2017-06-02] MEDS: FAMOTIDINE INJ/PF 20 MG/2 ML SDV IV SCH ×2 (09:37→21:20)
[2017-06-02] MEDS: ENOXAPARIN SODIUM INJ 80 MG/0.8 ML DISP.SYRIN SUBCUT SCH ×2 (09:37→21:20)
[2017-06-02] MEDS ORDERED: RINGERS SOLUTION,LACTATED 1,000 ML IV PRN (10:05)
--- NOTE | 2017-06-02 11:12 | RADIOLOGY REPORT (SQ) ---
EXAM DESCRIPTION: CHEST SINGLE VIEW COMPLETED DATE/TIME: 06/02/2017 10:51 am REASON FOR STUDY: rhonchi, ? aspiration COMPARISON: 05/31/2017 EXAM PARAMETERS: NUMBER OF VIEWS: One view. TECHNIQUE: Single frontal radiographic view of the chest acquired. RADIATION DOSE: NA LIMITATIONS: None. FINDINGS: LUNGS AND PLEURA: No opacities, masses or pneumothorax. No pleural effusion. MEDIASTINUM AND HILAR STRUCTURES: No masses. Contour normal. HEART AND VASCULAR STRUCTURES: Heart normal in size. Normal vasculature. BONES: No acute findings. HARDWARE: None in the chest. OTHER: Nasogastric tube in the stomach. IMPRESSION: NO ACUTE RADIOGRAPHIC FINDING IN THE CHEST. TECHNICAL DOCUMENTATION: JOB ID: [id number] [employer]- All Rights Reserved
--- NOTE | 2017-06-02 12:02 | PDOC PROGRESS REPORT ---
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 He was admitted on 05/30/17 with an acute Rt side CVA resulting in profound left hemiparesis, aphasia, dysphasia, and somnolence. He is seen on morning rounds resting comfortably on room air. He is awake, makes eye contact, and nods head yes or no to questions. However, per nursing they have noted that the patient is inappropriately answering questions more often than not (nodding yes to the question "can you feel me touching your leg? " When they are actually not touching the patient.) The patient's sister and nephew are present. There are questions and concerns were addressed. They are interested in meeting with palliative care to discuss future goals of care. Reason For Visit: CEREBROVASCULAR ACCIDENT (CVA) Physical Exam Vital Signs: Temp Pulse Resp BP Pulse Ox 97.7 F 85 16 146/87 H 94 06/02/17 08:02 06/02/17 08:11 06/02/17 08:11 06/02/17 08:02 06/02/17 08:11 Intake & Output 06/01/17 06/02/17 06/03/17 06:59 06:59 06:59 Intake Total 1004 3280 Output Total 150 1550 Balance 854 1730 Weight 78.6 kg 79.4 kg General appearance: PRESENT: no acute distress, well-developed, well-nourished, other - Overweight Head exam: PRESENT: atraumatic, normocephalic Eye exam: PRESENT: conjunctiva pink, EOMI, PERRLA. ABSENT: scleral icterus Ear exam: PRESENT: normal external ear exam Mouth exam: PRESENT: moist, tongue midline Neck exam: ABSENT: carotid bruit, JVD, lymphadenopathy, thyromegaly Respiratory exam: PRESENT: rhonchi - Throughout, symmetrical, unlabored. ABSENT : rales, wheezes Cardiovascular exam: PRESENT: RRR, +S1, +S2. ABSENT: diastolic murmur, rubs, systolic murmur Pulses: PRESENT: normal dorsalis pedis pul Vascular exam: PRESENT: normal capillary refill GI/Abdominal exam: PRESENT: normal bowel sounds, soft. ABSENT: distended, guarding, mass, organolmegaly, rebound, tenderness Rectal exam: PRESENT: deferred Extremities exam: PRESENT: pedal edema - Trace bilateral. ABSENT: calf tenderness, clubbing, full ROM - Minimal movement of right extremities: No movement of left Neurological exam: PRESENT: alert, awake, aphasic, other - Unable to adequately assess orientation as it has come to light that the patient is inappropriately answering yes or no questions. He does attempt to follow one-step directions with multiple promptings. Minimal movement of right extremity. Left side neglect. Continues to fail swallow screens with no significant improvement overnight.. ABSENT: motor sensory deficit Psychiatric exam: PRESENT: appropriate affect, normal mood. ABSENT: homicidal ideation, suicidal ideation Skin exam: PRESENT: dry, intact, warm. ABSENT: cyanosis, rash Results Laboratory Results: 06/02/17 04:42 06/02/17 04:42 06/02/17 06/02/17 04:42 04:42 WBC 7.0 RBC 5.09 Hgb 14.0 Hct 43.4 MCV 85 MCH 27.5 MCHC 32.2 RDW 14.5 H Plt Count 181 Sodium 143.8 Potassium 3.7 Chloride 110 H Carbon Dioxide 21 L Anion Gap 13 BUN 10 Creatinine 1.24 Est GFR ( Amer) > 60 Est GFR (Non-Af Amer) 58 L Glucose 79 Calcium 9.9 05/30/17 05/30/17 05/30/17 17:17 17:17 22:00 Creatine Kinase 192 H 614 H CK-MB (CK-2) 1.75 Troponin I 0.039 NT-Pro-B Natriuret Pep 05/30/17 05/31/17 05/31/17 22:00 03:10 03:10 Creatine Kinase 603 H CK-MB (CK-2) 2.26 1.74 Troponin I 0.040 0.035 NT-Pro-B Natriuret Pep 896 06/01/17 06/02/17 06:46 04:42 Creatine Kinase 937 H 620 H CK-MB (CK-2) Troponin I NT-Pro-B Natriuret Pep Impressions: Head MRI 05/30/17 00:00 IMPRESSION: Acute infarct external capsule basal ganglia on the right. Chronic left MCA distribution infarct. Atrophy and microvascular ischemia. EVIDENCE OF ACUTE STROKE: Yes RIGHT MCA Head CT 05/30/17 10:16 IMPRESSION: No acute findings-no intracranial hemorrhage. Old left hemispheric infarct. EVIDENCE OF ACUTE STROKE: NO. Head CTA 05/30/17 10:33 IMPRESSION: NO CTA EVIDENCE OF STENOSIS OR ANEURYSM OF THE [place]. Neck CTA 05/30/17 10:33 IMPRESSION: No evidence of dissection or significant stenosis. KUB X-Ray 06/01/17 10:47 IMPRESSION: NG tube with its tip at the level of the proximal stomach in the left upper quadrant. Other findings as noted above Chest X-Ray 06/02/17 00:00 IMPRESSION: NO ACUTE RADIOGRAPHIC FINDING IN THE CHEST. Assessment & Plan - Diagnosis (1) Acute CVA (cerebrovascular accident) Is this a current diagnosis for this admission?: Yes Plan: Acute right sided cryptogenic MCA artery CVA with cerebral infarction, resulting in dysphasia, aphasia, left sided hemiparesis/neglect that is persistent and unlikely to improve. MRI of the head reveals an acute infarction of the external capsule basal ganglia on the right. Chronic left MCA distribution infarct. Atrophy and microvascular ischemia. A CTA of the head did not demonstrate stenosis or aneurysm of the [place]. A CTA of the neck did not demonstrate significant stenosis of the carotids. Echocardiogram demonstrated a left ventricular ejection fraction of 45%. No evidence of a cardiac source of thrombosis. Lipid panel demonstrates an elevated LDL at 131, HDL of 74, total cholesterol of 235. Hemoglobin A1c is 6.2%. He is admitted to [facility] on continuous cardiac telemetry. The patient was chronically anticoagulated on Xarelto as an outpatient; he is currently receiving full dose Lovenox. PT/OT/ST to evaluate and treat per protocols. We will begin tube feedings per speech therapy and registered dietitian's recommendations. Now on high-dose statin therapy. Will ask palliative care to meet with the patient and family to establish goals of care. Following this meeting, will reevaluate desire for PEG tube placement and make appropriate surgical consultation. Will ask the principal planner to meet with the family to discuss disposition. I am concerned that the patient's family does not fully understand the totality of the stroke with minimal chance of improvement; the patient would likely benefit from long-term care facility. (2) Dysphasia Is this a current diagnosis for this admission?: Yes Plan: Related to CVA. The patient is being followed closely by speech therapy who recommended initiating alternative methods for nutrition/hydration. The patient and nephew have asked for a NG tube for tube feeds to allow the patient more time to assess swallow. The patient will likely require a PEG prior to discharge. Appreciate the registered dietitians evaluation recommendations. We will begin tube feedings today. We are monitoring Accu-Cheks every 6 hours with Humalog sliding scale insulin as needed and hypoglycemia protocol in place. Aspiration precautions. (3) Coronary artery disease Is this a current diagnosis for this admission?: Yes Plan: Hx of [place]. Currently n.p.o. He is currently on full dose Lovenox. He will receive daily aspirin and statin therapy. (4) Diastolic congestive heart failure Is this a current diagnosis for this admission?: Yes Plan: Echocardiogram treated left ventricular ejection fraction of 45%. He appears to be mildly fluid volume overloaded today; although weight is stable. We will decrease IV fluids to KVO. Will monitor strict I's and O's and daily weights. (5) Expressive aphasia Is this a current diagnosis for this admission?: Yes Plan: The patient did have some moderate expressive aphasia which appears to be worsened per family report; the patient is now entirely nonverbal. He does make attempts to answer yes or no questions, however, he is noted to be inappropriately answering these questions. Speech therapy has been consulted. 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 (8) Schizoaffective disorder Qualifiers: Schizoaffective disorder type: unspecified Qualified Code(s): F25.9 - Schizoaffective disorder, unspecified Is this a current diagnosis for this admission?: Yes Plan: The patient does have an underlying schizoaffective disorder who is maintained on Zyprexa. He cannot safely swallow at this point. IV Haldol is available every 6 hours as needed for agitation. (9) Full code status Is this a current diagnosis for this admission?: Yes (10) Aspiration pneumonia Is this a current diagnosis for this admission?: Yes Plan: Ruled out. The patient was noted to have a significant cough upon admission. There was concern that he may have aspirated during the CVA event. His chest x-ray did not reveal acute cardiopulmonary processes and follow-up imaging this morning is identical. The patient has remained afebrile overnight. His WBC count is normal. His lung sounds are clear. He is maintaining oxygen saturations while on room air. Aspiration precautions are instituted. - Time Time Spent with patient: 25-34 minutes Medications reviewed and adjusted accordingly: Yes
--- NOTE | 2017-06-02 14:38 | PDOC CONSULTATION ---
Consultation Consult Date: 06/02/17 Consult reason:: PEG tube placement History of Present Illness Admission Date/PCP: 05/30/17 13:28 FIDEL HANDY DO History of Present Illness: History is obtained by review of the chart. This is a 71-year-old gentleman with a past history of stroke who presented with an acute stroke involving the basal ganglia. He now has a left hemiparesis. He has been evaluated by speech pathology and he has severe dysphasia and has expressive aphasia he is somnolent. He is not able to give a history. Was asked by the medicine service to evaluate the patient for PEG tube placement Past Medical History Cardiac Medical History: Reports: Congestive Heart Failure, Myocardial Infarction, Hypertension Pulmonary Medical History: Reports: Chronic Obstructive Pulmonary Disease (COPD) Psychiatric Medical History: Reports: Schizoaffective Disorder Denies: Depression Past Surgical History Past Surgical History: Reports: None Social History Lives with: Family Smoking Status: Former Smoker Number of Years Smokin Last Time Smoked: 1987 Frequency of Alcohol Use: None Hx Recreational Drug Use: No Drugs: None Hx Prescription Drug Abuse: No - Advance Directive Resuscitation Status: Full Code Family History Family History: CAD, COPD, Hypertension Parental Family History Reviewed: No Children Family History Reviewed: No Sibling(s) Family History Reviewed.: No Medication/Allergy Home Medications: Budesonide/Formoterol Fumarate [Symbicort 160-4.5 Mcg Inhaler] 2 puff IH Q12 Escitalopram Oxalate [Lexapro 10 mg Tablet] 10 mg PO DAILY 05/30/17 Olanzapine [Zyprexa 5 mg Tablet] 5 mg PO DAILY 05/30/17 Rivaroxaban [Xarelto 15 mg Tablet] 15 mg PO DAILY 05/30/17 Simvastatin [Zocor 20 mg Tablet] 20 mg PO QPM 05/30/17 Trazodone HCl [Desyrel] 100 mg PO QHS 05/30/17 Allergies/Adverse Reactions: levofloxacin Adverse Reaction (Verified 05/31/17 11:38) Hives Physical Exam Vital Signs: Temp Pulse Resp BP Pulse Ox 97.7 F 88 20 146/87 H 93 06/02/17 08:02 06/02/17 13:57 06/02/17 13:57 06/02/17 08:02 06/02/17 13:57 Intake & Output 02/06/02/17 06/03/17 06:59 06:59 06:59 Intake Total 1004 3280 Output Total 150 1550 Balance 854 1730 Weight 78.6 kg 79.4 kg General appearance: PRESENT: other - Somnolent. GI/Abdominal exam: PRESENT: other - Abdomen soft. He has a scar from a prior PEG tube placement. Results Laboratory Results: 06/02/17 04:42 06/02/17 04:42 06/02/17 06/02/17 04:42 04:42 WBC 7.0 RBC 5.09 Hgb 14.0 Hct 43.4 MCV 85 MCH 27.5 MCHC 32.2 RDW 14.5 H Plt Count 181 Sodium 143.8 Potassium 3.7 Chloride 110 H Carbon Dioxide 21 L Anion Gap 13 BUN 10 Creatinine 1.24 Est GFR ( Amer) > 60 Est GFR (Non-Af Amer) 58 L Glucose 79 Calcium 9.9 05/30/17 05/30/17 05/30/17 17:17 17:17 22:00 Creatine Kinase 192 H 614 H CK-MB (CK-2) 1.75 Troponin I 0.039 NT-Pro-B Natriuret Pep 05/30/17 05/31/17 05/31/17 22:00 03:10 03:10 Creatine Kinase 603 H CK-MB (CK-2) 2.26 1.74 Troponin I 0.040 0.035 NT-Pro-B Natriuret Pep 896 06/01/17 06/02/17 06:46 04:42 Creatine Kinase 937 H 620 H CK-MB (CK-2) Troponin I NT-Pro-B Natriuret Pep Impressions: Head MRI 05/30/17 00:00 IMPRESSION: Acute infarct external capsule basal ganglia on the right. Chronic left MCA distribution infarct. Atrophy and microvascular ischemia. EVIDENCE OF ACUTE STROKE: Yes RIGHT MCA Head CT 05/30/17 10:16 IMPRESSION: No acute findings-no intracranial hemorrhage. Old left hemispheric infarct. EVIDENCE OF ACUTE STROKE: NO. Head CTA 05/30/17 10:33 IMPRESSION: NO CTA EVIDENCE OF STENOSIS OR ANEURYSM OF THE [place]. Neck CTA 05/30/17 10:33 IMPRESSION: No evidence of dissection or significant stenosis. KUB X-Ray 06/01/17 10:47 IMPRESSION: NG tube with its tip at the level of the proximal stomach in the left upper quadrant. Other findings as noted above Chest X-Ray 06/02/17 00:00 IMPRESSION: NO ACUTE RADIOGRAPHIC FINDING IN THE CHEST. Assessment & Plan - Diagnosis (1) Acute CVA (cerebrovascular accident) Is this a current diagnosis for this admission?: Yes (2) Aspiration pneumonia Is this a current diagnosis for this admission?: Yes (3) CVA (cerebral vascular accident) Qualifiers: CVA mechanism: unspecified Qualified Code(s): I63.9 - Cerebral infarction, unspecified (4) Coronary artery disease Is this a current diagnosis for this admission?: Yes (5) Diastolic congestive heart failure Is this a current diagnosis for this admission?: Yes (6) Dysphasia Is this a current diagnosis for this admission?: Yes Plan: He has dysphasia secondary to a stroke. He has multiple comorbidities and in general, I do not believe that PEG is in his best interest. There is data to support not proceeding with PEG in patients with severe dementia or complicated ischemic stroke with poor outcome. There is inherent risk with PEG tube placement including inadvertent premature removal of the PEG which could result in an acute abdomen necessitating laparotomy. Patient's family reports that in the past, he has pulled his PEG out and they do have some concerns about this. Again, I did offer to them that we did not proceed with the PEG. After consideration, they have elected to proceed with PEG tube placement. He is currently on Lovenox at therapeutic level so we will not be able to do this today. We will get this scheduled for Monday. Should they change their mind over the weekend we will certainly cancel the PEG. (7) Full code status Is this a current diagnosis for this admission?: Yes (8) Hypertension Qualifiers: Hypertension type: unspecified Qualified Code(s): I10 - Essential (primary ) hypertension
[2017-06-02] MEDS: TRAZODONE HCL 50 MG TABLET PO SCH (21:21)
[2017-06-02] MEDS: ATORVASTATIN CALCIUM 80 MG TABLET PO SCH (21:21)
--- NOTE | 2017-06-02 23:37 | Palliative Consultation Report ---
Consultation From:: EDGARDO HOWE Consult Reason: PEG tube placement - HPI Chief Complaint: CVA with dysphagia and aphasia HPI: Palliative care visit 06/02/17 4:55- 5:20 PM Appreciate palliative care consult request for this 71 year old man who is admitted with new onset CVA following original CVA 2 years ago. Patient also suffers with CHF, RI, HTN, COPD. At the time of my visit, his mother is present at bedside, saying she needs to leave before traffic gets heavy. She tells me that patient is cared for by his sister at her home since his first CVA. Mother says she visits regularly but is not able to provide care. I asked her if she knew that they were discussing placing feeding tube and she said yes, but did not seem to want to discuss this. Patient asleep with no response to my voice, questions or touch. Onset: Just prior to arrival Onset/Duration: Sudden Severity: Severe Context: No sign of pain Associated Symptoms: Weakness Past Medical History(Consults) - General Information Source: [facility] [place] Records Home Medications: Budesonide/Formoterol Fumarate [Symbicort 160-4.5 Mcg Inhaler] 2 puff IH Q12 Escitalopram Oxalate [Lexapro 10 mg Tablet] 10 mg PO DAILY 05/30/17 Olanzapine [Zyprexa 5 mg Tablet] 5 mg PO DAILY 05/30/17 Rivaroxaban [Xarelto 15 mg Tablet] 15 mg PO DAILY 05/30/17 Simvastatin [Zocor 20 mg Tablet] 20 mg PO QPM 05/30/17 Trazodone HCl [Desyrel] 100 mg PO QHS 05/30/17 Allergies/Adverse Reactions: levofloxacin Adverse Reaction (Verified 05/31/17 11:38) Hives - Social History Lives with: Family Family History: CAD, COPD, Hypertension Parental Family History Reviewed: No Children Family History Reviewed: No Sibling(s) Family History Reviewed.: No Smoking Status: Smoker,Current Status Unk Number of Years Smokin Last Time Smoked: 1987 Frequency of Alcohol Use: None Hx Recreational Drug Use: No Drugs: None Hx Prescription Drug Abuse: No - Past Medical History Cardiac Medical History: Reports: Hx Congestive Heart Failure, Hx Heart Attack, Hx Hypertension Pulmonary Medical History: Reports: Hx COPD Neurological Medical History: Reports: Hx Cerebrovascular Accident Renal/ Medical History: Denies: Hx Peritoneal Dialysis GI History Note: Has had peg tube in past Psychiatric Medical History: Reports: Hx Schizoaffective Disorder Denies: Hx Depression - Surgical History Past Surgical History: Reports: None Review of systems ROS unobtainable: due to mental statu Ojective:Exam Vital Signs: Temp Pulse Resp BP Pulse Ox 99.0 F 115 H 22 H 182/95 H 91 L 06/02/17 20:18 06/02/17 20:18 06/02/17 20:18 06/02/17 20:18 06/02/17 20:18 Intake & Output 06/01/17 06/02/17 06/03/17 06:59 06:59 06:59 Intake Total 1004 3280 525 Output Total 150 1550 Balance 854 1730 525 Weight 78.6 kg 79.4 kg - General General Appearance: Lethargic In distress: None - HEENT Head: Normocephalic Mucous membrane: Normal - Respiratory Respiratory Status: No respiratory distress Breath sounds: Clear - Cardiovascular Rhythm: Regular - Neurological Cognition: Other Speech: Expressive aphasia - Skin Skin Temperature: Warm Skin Moisture: Dry Skin Color: [place] Objective-Diagnostic Laboratory: 06/02/17 04:42 06/02/17 04:42 06/02/17 06/02/17 04:42 04:42 WBC 7.0 RBC 5.09 Hgb 14.0 Hct 43.4 MCV 85 MCH 27.5 MCHC 32.2 RDW 14.5 H Plt Count 181 Sodium 143.8 Potassium 3.7 Chloride 110 H Carbon Dioxide 21 L Anion Gap 13 BUN 10 Creatinine 1.24 Est GFR ( Amer) > 60 Est GFR (Non-Af Amer) 58 L Glucose 79 Calcium 9.9 05/30/17 05/30/17 05/30/17 17:17 17:17 22:00 Creatine Kinase 192 H 614 H CK-MB (CK-2) 1.75 Troponin I 0.039 NT-Pro-B Natriuret Pep 05/30/17 05/31/17 05/31/17 22:00 03:10 03:10 Creatine Kinase 603 H CK-MB (CK-2) 2.26 1.74 Troponin I 0.040 0.035 NT-Pro-B Natriuret Pep 896 02/15/18 02/16/18 06:46 04:42 Creatine Kinase 937 H 620 H CK-MB (CK-2) Troponin I NT-Pro-B Natriuret Pep Plan and Recommendation Plan and Recommendation: Mother states her daughter stays at night with patient and will be here later. I will call her and see if I can meet with her tomorrow at some time to discuss palliative measures, care options and supportive care for post discharge Nursing reports inconsistent responses from patient when they ask him questions. Code status being based on his blink response. I would like opportunity to discuss care options with the caregiver before final decision is made regarding peg tube placement. Will follow. Appreciate opportunity to participate in care. - Time Spent with Patient Time spent with patient: 15 to 30 Minutes Time: 30 min total
[2017-06-03] MEDS: DEXTROSE 50%-WATER 25 GM/50 ML DISP.SYRIN IV PRN ×2 (00:51→11:36)
[2017-06-03 06:43] LABS: ANION GAP 12 (5-19); BLOOD UREA NITROGEN 11 mg/dL (7-20); CALCIUM 10.1 mg/dL (8.4-10.2); CARBON DIOXIDE 18 mmol/L (22-30); CHLORIDE 111 mmol/L (98-107); CREATINE KINASE 350 U/L (55-170); GLUCOSE 75 mg/dL (75-110); POTASSIUM 3.7 mmol/L (3.6-5.0); SODIUM 140.9 mmol/L (137-145)
[2017-06-03] MEDS: IPRATROPIUM/ALBUTEROL 0.5-2.5 MG/3 ML AMPUL NEB SCH ×3 (08:03→19:47)
[2017-06-03] MEDS: FAMOTIDINE INJ/PF 20 MG/2 ML SDV IV SCH ×2 (09:38→21:52)
[2017-06-03] MEDS: ENOXAPARIN SODIUM INJ 80 MG/0.8 ML DISP.SYRIN SUBCUT SCH ×2 (09:39→21:52)
[2017-06-03] MEDS ORDERED: ASPIRIN 81 MG TABLET, CHEWABLE PO SCH (10:00)
[2017-06-03] MEDS ORDERED: KETOROLAC TROMETHAMINE INJ/PF 30 MG/1 ML SDV IV PRN (12:22)
[2017-06-03] MEDS: DEXTROSE 5%-LACTATED RINGERS 1,000 ML IV PRN (12:27)
[2017-06-03] MEDS: KETOROLAC TROMETHAMINE INJ/PF 30 MG/1 ML SDV IV PRN ×2 (12:32→21:52)
--- NOTE | 2017-06-03 12:42 | PDOC PROGRESS REPORT ---
Subjective Progress Note for:: 06/03/17 Subjective:: The patient is a 71-year-old male with a past medical history of a CVA approximately 2 years ago that resulted in mild right-sided hemiparesis, congestive heart failure, ID, hypertension, COPD, and schizoaffective disorder. He was admitted on 05/30/17 with an acute Rt side CVA resulting in profound left hemiparesis, aphasia, dysphasia, and somnolence. He is seen on morning rounds resting comfortably on room air. He wakes easily with gentle shake. He does seem to answer yes/no questions appropriately today ; however, there is much concern that he is not always consistent with this. Unfortunately, no family members are present at this time. No new concerns per nursing. Reason For Visit: CEREBROVASCULAR ACCIDENT (CVA) Physical Exam Vital Signs: Temp Pulse Resp BP Pulse Ox 98.5 F 87 18 156/109 H 95 06/03/17 07:20 06/03/17 08:05 06/03/17 08:05 06/03/17 07:20 06/03/17 08:05 Intake & Output 06/02/17 06/03/17 06/04/17 06:59 06:59 06:59 Intake Total 3280 1062 Output Total 1550 0 Balance 1730 1062 Weight 79.4 kg 77.2 kg General appearance: PRESENT: no acute distress, well-developed, well-nourished Head exam: PRESENT: atraumatic, normocephalic Eye exam: PRESENT: conjunctiva pink, EOMI, PERRLA. ABSENT: scleral icterus Ear exam: PRESENT: normal external ear exam Mouth exam: PRESENT: moist, tongue midline Neck exam: ABSENT: carotid bruit, JVD, lymphadenopathy, thyromegaly Respiratory exam: PRESENT: rhonchi - Throughout, symmetrical, unlabored, wheezes - Slight expiratory wheeze to left lung vasques. ABSENT: rales Cardiovascular exam: PRESENT: RRR, +S1, +S2. ABSENT: diastolic murmur, rubs, systolic murmur Pulses: PRESENT: normal dorsalis pedis pul Vascular exam: PRESENT: normal capillary refill GI/Abdominal exam: PRESENT: normal bowel sounds, soft. ABSENT: distended, guarding, mass, organolmegaly, rebound, tenderness Rectal exam: PRESENT: deferred Extremities exam: PRESENT: full ROM. ABSENT: calf tenderness, clubbing, pedal edema Neurological exam: PRESENT: alert, awake, aphasic, other - Unable to fully assess mental status secondary to profound aphasia.. ABSENT: oriented to person , oriented to place, motor sensory deficit Psychiatric exam: ABSENT: homicidal ideation, suicidal ideation Skin exam: PRESENT: dry, intact, warm. ABSENT: cyanosis, rash Results Laboratory Results: 06/02/17 04:42 06/03/17 05:14 06/03/17 05:14 Sodium 140.9 Potassium 3.7 Chloride 111 H Carbon Dioxide 18 L Anion Gap 12 BUN 11 Creatinine 1.19 Est GFR ( Amer) > 60 Est GFR (Non-Af Amer) > 60 Glucose 75 Calcium 10.1 05/30/17 05/30/17 05/30/17 17:17 17:17 22:00 Creatine Kinase 192 H 614 H CK-MB (CK-2) 1.75 Troponin I 0.039 NT-Pro-B Natriuret Pep 05/30/17 05/31/17 05/31/17 22:00 03:10 03:10 Creatine Kinase 603 H CK-MB (CK-2) 2.26 1.74 Troponin I 0.040 0.035 NT-Pro-B Natriuret Pep 896 06/01/17 06/02/17 06/03/17 06:46 04:42 05:14 Creatine Kinase 937 H 620 H 350 H CK-MB (CK-2) Troponin I NT-Pro-B Natriuret Pep Impressions: Head MRI 05/30/17 00:00 IMPRESSION: Acute infarct external capsule basal ganglia on the right. Chronic left MCA distribution infarct. Atrophy and microvascular ischemia. EVIDENCE OF ACUTE STROKE: Yes RIGHT MCA Head CT 05/30/17 10:16 IMPRESSION: No acute findings-no intracranial hemorrhage. Old left hemispheric infarct. EVIDENCE OF ACUTE STROKE: NO. Head CTA 05/30/17 10:33 IMPRESSION: NO CTA EVIDENCE OF STENOSIS OR ANEURYSM OF THE [place]. Neck CTA 05/30/17 10:33 IMPRESSION: No evidence of dissection or significant stenosis. KUB X-Ray 06/01/17 10:47 IMPRESSION: NG tube with its tip at the level of the proximal stomach in the left upper quadrant. Other findings as noted above Chest X-Ray 06/02/17 00:00 IMPRESSION: NO ACUTE RADIOGRAPHIC FINDING IN THE CHEST. Assessment & Plan - Diagnosis (1) Acute CVA (cerebrovascular accident) Is this a current diagnosis for this admission?: Yes Plan: Acute right sided cryptogenic MCA artery CVA with cerebral infarction, resulting in dysphasia, aphasia, left sided hemiparesis/neglect that is persistent and unlikely to improve. MRI of the head reveals an acute infarction of the external capsule basal ganglia on the right. Chronic left MCA distribution infarct. Atrophy and microvascular ischemia. A CTA of the head did not demonstrate stenosis or aneurysm of the [place] of [place]. A CTA of the neck did not demonstrate significant stenosis of the carotids. Echocardiogram demonstrated a left ventricular ejection fraction of 45%. No evidence of a cardiac source of thrombosis. Lipid panel demonstrates an elevated LDL at 131, HDL of 74, total cholesterol of 235. Hemoglobin A1c is 6.2%. He is admitted to [facility] on continuous cardiac telemetry. The patient was chronically anticoagulated on Xarelto as an outpatient; he is currently receiving full dose Lovenox. PT/OT/ST to evaluate and treat per protocols. Plan for tube feedings per speech therapy and registered dietitian's recommendations; pt pulled out NG tube and family has requested to not have it replaced. Plan for PEG on Monday. Appreciate palliative care's assistance in establishing goals of care. Will ask the meeting/event planner to meet with the family to discuss disposition; pt's sister is interested in LTC. (2) Dysphasia Is this a current diagnosis for this admission?: Yes Plan: Related to CVA. The patient is being followed closely by speech therapy who recommended initiating alternative methods for nutrition/hydration. Plan for PEG on Monday; appreciate Surgery's assistance. Appreciate the registered dietitians evaluation recommendations. We are monitoring Accu-Cheks every 6 hours with Humalog sliding scale insulin as needed and hypoglycemia protocol in place. Aspiration precautions. (3) Coronary artery disease Is this a current diagnosis for this admission?: Yes Plan: Hx of ID. Currently n.p.o. He is currently on full dose Lovenox. He will receive daily aspirin and statin therapy. (4) Diastolic congestive heart failure Is this a current diagnosis for this admission?: Yes Plan: Echocardiogram treated left ventricular ejection fraction of 45%. He appears to be mildly fluid volume overloaded today; although weight is stable. Will monitor closely for evidence of fluid volume overload r/t IVF. Will monitor strict I's and O's and daily weights. (5) Expressive aphasia Is this a current diagnosis for this admission?: Yes Plan: The patient did have some moderate expressive aphasia which appears to be worsened per family report; the patient is now entirely nonverbal. He does make attempts to answer yes or no questions, however, he is noted to be inappropriately answering these questions. Speech therapy has been consulted. (6) intermission coordinator current use of anticoagulant Is this a current diagnosis for this admission?: Yes (7) Tobacco abuse Is this a current diagnosis for this admission?: Yes Plan: Smoking cessation is encouraged and nicotine replacement therapies have been provided. (8) Schizoaffective disorder Qualifiers: Schizoaffective disorder type: unspecified Qualified Code(s): F25.9 - Schizoaffective disorder, unspecified Is this a current diagnosis for this admission?: Yes Plan: The patient does have an underlying schizoaffective disorder who is maintained on Zyprexa. He cannot safely swallow at this point. IV Haldol is available every 6 hours as needed for agitation. (9) Full code status Is this a current diagnosis for this admission?: Yes (10) Aspiration pneumonia Is this a current diagnosis for this admission?: Yes Plan: Ruled out. The patient was noted to have a significant cough upon admission. There was concern that he may have aspirated during the CVA event. His chest x-ray did not reveal acute cardiopulmonary processes and follow-up imaging this morning is identical. The patient has remained afebrile overnight. His WBC count is normal. His lung sounds are clear. He is maintaining oxygen saturations while on room air. Aspiration precautions are instituted. (11) Muscle spasm Is this a current diagnosis for this admission?: Yes Plan: CK is trending down. Will continue to monitor electrolytes with daily chemistry. Will trial low dose IV Toradol. (12) Acute on chronic renal failure Is this a current diagnosis for this admission?: Yes Plan: Resolved; creatinine has returned to his baseline of 1.19. Will avoid nephrotoxic medications. Will continue gentle IVF. Will monitor with daily chemistry. (13) Rhabdomyolysis Is this a current diagnosis for this admission?: Yes Plan: Improving; elevated creatinine kinase peaked at 937 and is now trending downwards. This morning CK is noted to be 350. He continues to have good urinary output, but does continue to have occasional muscle cramps. The patient has been placed on a special mattress, nursing is repositioning every 2 hours. He is receiving IV fluids. We will continue to monitor. (14) Hypoglycemia Is this a current diagnosis for this admission?: Yes Plan: Secondary to n.p.o. status. The fluids are changed to D5 LR. Accu-Cheks every 6 hours with hypoglycemia protocols. - Time Time Spent with patient: 35 or more minutes Medications reviewed and adjusted accordingly: Yes Anticipated discharge: SNF Within: within 72 hours - s/p PEG placement and tolerance of TF
[2017-06-03] MEDS ORDERED: CLONIDINE 0.1 MG/24 HR PATCH.TDWK TD SCH (15:00)
[2017-06-03] MEDS: METOPROLOL TARTRATE PF/INJ 5 MG/5 ML SDV IV SCH (17:02)
[2017-06-03 17:51] LABS: ANION GAP 11 (5-19); BLOOD UREA NITROGEN 9 mg/dL (7-20); CARBON DIOXIDE 20 mmol/L (22-30); CHLORIDE 112 mmol/L (98-107); GLUCOSE 88 mg/dL (75-110); POTASSIUM 3.4 mmol/L (3.6-5.0); SODIUM 143.4 mmol/L (137-145)
[2017-06-03 18:02] LABS: TROPONIN I 0.021 ng/mL
[2017-06-03] MEDS: ATORVASTATIN CALCIUM 80 MG TABLET PO SCH (21:39)
--- NOTE | 2017-06-03 22:18 | EKG REPORT ---
SEVERITY:- ABNORMAL ECG - SINUS RHYTHM VENTRICULAR PREMATURE COMPLEX LAD, CONSIDER LEFT ANTERIOR FASCICULAR BLOCK ANTEROLATERAL INFARCT, AGE INDETERMINATE : Confirmed by: Frantz Dove 03-Jun-2017 22:17:29
[2017-06-04] MEDS: METOPROLOL TARTRATE PF/INJ 5 MG/5 ML SDV IV SCH ×5 (00:23→23:36)
[2017-06-04] MEDS: HALOPERIDOL LACTATE INJ 5 MG/1 ML VIAL IV PRN (00:26)
[2017-06-04 05:21] LABS: HEMATOCRIT 42.6 % (37.9-51.0); HEMOGLOBIN 13.8 g/dL (13.5-17.0); MEAN CORPUSCULAR HEMOGLOBIN 27.4 pg (27.0-33.4); MEAN CORPUSCULAR HGB CONC 32.5 g/dL (32.0-36.0); MEAN CORPUSCULAR VOLUME 84 fl (80-97); PLATELET COUNT 177 10^3/uL (150-450); RED BLOOD COUNT 5.04 10^6/uL (4.35-5.55); RED CELL DISTRIBUTION WIDTH 14.5 % (11.5-14.0); WHITE BLOOD COUNT 4.7 10^3/uL (4.0-10.5)
[2017-06-04 05:45] LABS: ALANINE AMINOTRANSFERASE 40 U/L (21-72); ALBUMIN 3.7 g/dL (3.5-5.0); ALKALINE PHOSPHATASE 41 U/L (38-126); ANION GAP 8 (5-19); ASPARTATE AMINO TRANSFERASE 49 U/L (17-59); BILIRUBIN,DIRECT 0.4 mg/dL (0.0-0.4); BILIRUBIN,TOTAL 0.7 mg/dL (0.2-1.3); BLOOD UREA NITROGEN 9 mg/dL (7-20); CARBON DIOXIDE 23 mmol/L (22-30); CHLORIDE 112 mmol/L (98-107); GLUCOSE 90 mg/dL (75-110); POTASSIUM 3.5 mmol/L (3.6-5.0); SODIUM 143.3 mmol/L (137-145); TOTAL PROTEIN 6.9 g/dL (6.3-8.2)
[2017-06-04] MEDS: DEXTROSE 5%-LACTATED RINGERS 1,000 ML IV PRN (06:18)
[2017-06-04] MEDS: IPRATROPIUM/ALBUTEROL 0.5-2.5 MG/3 ML AMPUL NEB SCH ×3 (08:06→20:53)
[2017-06-04] MEDS: POTASSI CL 20 MEQ/50 ML RIDER 20 MEQ/50 ML RTUPB IV SCH ×2 (08:19→11:08)
[2017-06-04] MEDS: HYDRALAZINE HCL INJ/PF 20 MG/1 ML SDV IV PRN ×2 (08:19→16:23)
[2017-06-04] MEDS: FAMOTIDINE INJ/PF 20 MG/2 ML SDV IV SCH ×2 (09:35→22:43)
--- NOTE | 2017-06-04 11:33 | Progress Note ---
Provider Note Provider Note: Palliative Care Follow Up visit 06/04/17 10:20 - 11:25AM Palliative care follow up visit made at a time when I could meet with patient and family before scheduled insertion of feeding tube. Patients sister , Abdullahi Hayes, his mother and his son all met with me in the patients room this morning to discuss options for care. Mr. Jenkins is much improved today from when I met him on 06/02. He is awake, answering questions appropriately with nods, smiles and other gestures. He is moving his right arm and left foot when requested, but both are still very weak. he is unable to move his left arm or foot/leg. He is swallowing his saliva well and sister states she has given him ice chips with no swallowing difficulty. Patient let his sister know that he wanted to wear the paper face mask that she brought in, and he was wearing it beneath his nostrils. When it go hot in the room I suggested they take it off, but he let his son know that he wanted it back on and let us know he was happy with it back in place. NO cough or respiratory distress noted, shakes his head "No" to questions about pain. We had a lengthy talk about patients CVA history and his short stay in SNF after his CVA. Sister took him home due to poor care and he improved at home. However, in the years she has taken care of him, her also had lung cancer and . She now has health issues and would like to have patient go to SNF for rehab after discharge. We did discuss some of the local rehab facilities and the option of home health rehab if she decides to take him home. In regards to feeding tube, Mrs. Hayes does NOT want the feeding tube placed since patient has improved so much in the last two days. SHe knows they would have to restrain him to keep it in place and she feels he will be able to swallow as he did before. She understands risk of aspiration. The patient was awake and attentive to this conversation and while we did not ask him directly, he seemed to have no attempt to disagree with her. Patients mother and son also had no verbalized objection to PO feedings. I did speak with them about code status. Sister stated she did NOT want patient to be "coded" or intubated and placed on ventilator. She understands that resuscitation would not improve his current status and she would not want him kept alive on machines. Again family had no verbalized objections to this decision and patient did not attempt any argument either. I told her I would write DNR paper to follow him to SNF to assure their decision would be made known. This family is very realistic about the patients status but they are happy that he has improved so much in a few days. Barbie are aware that another CVA or cardiac event could happen, but they are interested in good quality of life and good care for patient in the meantime. I let patients nurse know of decision for DNR and that I put a [place] DNR form on his chart. She will notify Luzma Jolley [employer] MEDICINE DOCTOR to write DNR order for this hospitalization and also to allow patient to try pleasure feedings by mouth. Appreciate opportunity to participate in care of this patient and to offer support for this very dedicated sister.
--- NOTE | 2017-06-04 11:35 | PDOC PROGRESS REPORT ---
Subjective Progress Note for:: 06/04/17 Subjective:: The patient is a 71-year-old male with a past medical history of a CVA approximately 2 years ago that resulted in mild right-sided hemiparesis, congestive heart failure, MS, hypertension, COPD, and schizoaffective disorder. He was admitted on 05/30/17 with an acute Rt side CVA resulting in profound left hemiparesis, aphasia, dysphasia, and somnolence. He is seen on morning rounds resting comfortably on room air with his son present. He is awake and does attempt to communicate verbally, though is completely garbled. Pt's son has many questions regarding PEG placement and prognosis with and without the tube. He requests that a speech eval be completed again prior to PEG on Monday. Reason For Visit: CEREBROVASCULAR ACCIDENT (CVA) Physical Exam Vital Signs: Temp Pulse Resp BP Pulse Ox 98.3 F 71 18 171/104 H 93 06/04/17 07:54 06/04/17 08:07 06/04/17 08:07 06/04/17 07:54 06/04/17 08:07 Intake & Output 06/03/17 06/04/17 06/05/17 06:59 06:59 06:59 Intake Total 1062 1384 Output Total 0 Balance 1062 1384 Weight 77.2 kg 76.9 kg General appearance: PRESENT: no acute distress, well-developed, well-nourished Head exam: PRESENT: atraumatic, normocephalic Eye exam: PRESENT: conjunctiva pink, EOMI, PERRLA. ABSENT: scleral icterus Ear exam: PRESENT: normal external ear exam Mouth exam: PRESENT: moist, tongue midline Neck exam: ABSENT: carotid bruit, JVD, lymphadenopathy, thyromegaly Respiratory exam: PRESENT: clear to auscultation eric, decreased breath sounds, symmetrical, unlabored, other - has just compelted neb treatment. ABSENT: rales , rhonchi, wheezes Cardiovascular exam: PRESENT: RRR, +S1, +S2. ABSENT: diastolic murmur, rubs, systolic murmur Pulses: PRESENT: normal dorsalis pedis pul Vascular exam: PRESENT: normal capillary refill GI/Abdominal exam: PRESENT: normal bowel sounds, soft. ABSENT: distended, guarding, mass, organolmegaly, rebound, tenderness Rectal exam: PRESENT: deferred Extremities exam: ABSENT: calf tenderness, clubbing, pedal edema Neurological exam: PRESENT: alert, awake, aphasic, other - Exam limited 2/2 aphasia. The patient is responsive to painful stimuli to his left foot and does make attempts to withdraw from pain. He is noted to reach up with his right hand and scratch his nose during exam which has not been observed before. He just seemed to continue to have neglect of the left upper extremity.. ABSENT: motor sensory deficit Psychiatric exam: ABSENT: homicidal ideation, suicidal ideation Skin exam: PRESENT: dry, intact, warm. ABSENT: cyanosis, rash Results Laboratory Results: 06/04/17 05:06 06/04/17 05:06 06/03/17 06/04/17 06/04/17 17:00 05:06 05:06 WBC 4.7 RBC 5.04 Hgb 13.8 Hct 42.6 MCV 84 MCH 27.4 MCHC 32.5 RDW 14.5 H Plt Count 177 Sodium 143.4 143.3 Potassium 3.4 L 3.5 L Chloride 112 H 112 H Carbon Dioxide 20 L 23 Anion Gap 11 8 BUN 9 9 Creatinine 1.21 1.21 Est GFR ( Amer) > 60 > 60 Est GFR (Non-Af Amer) 59 L 59 L Glucose 88 90 Calcium 10.0 10.0 Magnesium 1.7 Total Bilirubin 0.7 AST 49 ALT 40 Alkaline Phosphatase 41 Total Protein 6.9 Albumin 3.7 05/30/17 05/30/17 05/30/17 17:17 17:17 22:00 Creatine Kinase 192 H 614 H CK-MB (CK-2) 1.75 Troponin I 0.039 NT-Pro-B Natriuret Pep 05/30/17 05/31/17 05/31/17 22:00 03:10 03:10 Creatine Kinase 603 H CK-MB (CK-2) 2.26 1.74 Troponin I 0.040 0.035 NT-Pro-B Natriuret Pep 896 06/01/17 06/02/17 06/03/17 06:46 04:42 05:14 Creatine Kinase 937 H 620 H 350 H CK-MB (CK-2) Troponin I NT-Pro-B Natriuret Pep 06/03/17 17:00 Creatine Kinase CK-MB (CK-2) Troponin I 0.021 NT-Pro-B Natriuret Pep 669 Impressions: Head MRI 05/30/17 00:00 IMPRESSION: Acute infarct external capsule basal ganglia on the right. Chronic left MCA distribution infarct. Atrophy and microvascular ischemia. EVIDENCE OF ACUTE STROKE: Yes RIGHT MCA Head CT 05/30/17 10:16 IMPRESSION: No acute findings-no intracranial hemorrhage. Old left hemispheric infarct. EVIDENCE OF ACUTE STROKE: NO. Head CTA 05/30/17 10:33 IMPRESSION: NO CTA EVIDENCE OF STENOSIS OR ANEURYSM OF THE LOWER [place] OF [place]. Neck CTA 05/30/17 10:33 IMPRESSION: No evidence of dissection or significant stenosis. KUB X-Ray 06/01/17 10:47 IMPRESSION: NG tube with its tip at the level of the proximal stomach in the left upper quadrant. Other findings as noted above Chest X-Ray 06/02/17 00:00 IMPRESSION: NO ACUTE RADIOGRAPHIC FINDING IN THE CHEST. Assessment & Plan - Diagnosis (1) Acute CVA (cerebrovascular accident) Is this a current diagnosis for this admission?: Yes Plan: Acute right sided cryptogenic MCA artery CVA with cerebral infarction, resulting in dysphasia, aphasia, left sided hemiparesis/neglect that is persistent and unlikely to improve. MRI of the head reveals an acute infarction of the external capsule basal ganglia on the right. Chronic left MCA distribution infarct. Atrophy and microvascular ischemia. A CTA of the head did not demonstrate stenosis or aneurysm of the [place]. A CTA of the neck did not demonstrate significant stenosis of the carotids. Echocardiogram demonstrated a left ventricular ejection fraction of 45%. No evidence of a cardiac source of thrombosis. Lipid panel demonstrates an elevated LDL at 131, HDL of 74, total cholesterol of 235. Hemoglobin A1c is 6.2%. He is admitted to [facility] on continuous cardiac telemetry. The patient was chronically anticoagulated on Xarelto as an outpatient; he is currently receiving full dose Lovenox. PT/OT/ST to evaluate and treat per protocols. Family has requested additional speech evaluation prior to Peg. Will have to re -consult surgery at that time. Appreciate palliative care's assistance in establishing goals of care. The patient's surrogate decision maker is listed as the patient's mother, Chra Jenkins, Will ask the project planner to meet with the family to discuss disposition; pt's sister is interested in LTC. (2) Dysphasia Is this a current diagnosis for this admission?: Yes Plan: Related to CVA. The patient is being followed closely by speech therapy who recommended initiating alternative methods for nutrition/hydration. Reevaluation by speech on Monday. Anticipate that they will recommend PEG; appreciate Surgery's assistance. Appreciate the registered dietitians evaluation recommendations. We are monitoring Accu-Cheks every 6 hours with Humalog sliding scale insulin as needed and hypoglycemia protocol in place. Aspiration precautions. (3) Coronary artery disease Is this a current diagnosis for this admission?: Yes Plan: Hx of MS. Currently n.p.o. He is currently on full dose Lovenox. He will receive daily aspirin (4) Diastolic congestive heart failure Is this a current diagnosis for this admission?: Yes Plan: Echocardiogram treated left ventricular ejection fraction of 45%. Will monitor closely for evidence of fluid volume overload r/t IVF. Will monitor strict I's and O's and daily weights. (5) Expressive aphasia Is this a current diagnosis for this admission?: Yes Plan: The patient did have some moderate expressive aphasia which appears to be worsened per family report; the patient is now entirely nonverbal. He does make attempts to answer yes or no questions, however, he is noted to be inappropriately answering these questions. Some garbled speech today. Speech therapy has been consulted. 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 (8) Schizoaffective disorder Qualifiers: Schizoaffective disorder type: unspecified Qualified Code(s): F25.9 - Schizoaffective disorder, unspecified Is this a current diagnosis for this admission?: Yes Plan: The patient does have an underlying schizoaffective disorder who is maintained on Zyprexa. He cannot safely swallow at this point. IV Haldol is available every 6 hours as needed for agitation. (9) Full code status Is this a current diagnosis for this admission?: Yes (10) Aspiration pneumonia Is this a current diagnosis for this admission?: Yes Plan: Ruled out. The patient was noted to have a significant cough upon admission. There was concern that he may have aspirated during the CVA event. His chest x-ray did not reveal acute cardiopulmonary processes and follow-up imaging this morning is identical. The patient has remained afebrile overnight. His WBC count is normal. His lung sounds are clear. He is maintaining oxygen saturations while on room air. Aspiration precautions are instituted. (11) Muscle spasm Is this a current diagnosis for this admission?: Yes Plan: CK is trending down. Will continue to monitor electrolytes with daily chemistry. Will trial low dose IV Toradol. (12) Acute on chronic renal failure Is this a current diagnosis for this admission?: Yes Plan: Resolved; creatinine has returned to his baseline of 1.21 Will avoid nephrotoxic medications. Will continue gentle IVF. Will monitor with daily chemistry. (13) Rhabdomyolysis Is this a current diagnosis for this admission?: Yes Plan: Improving; elevated creatinine kinase peaked at 937 and is now trending downwards to 350. The patient has been placed on a special mattress, nursing is repositioning every 2 hours. He is receiving IV fluids. We will continue to monitor. (14) Hypoglycemia Is this a current diagnosis for this admission?: Yes Plan: Secondary to n.p.o. status. The fluids are changed to D5 LR. Accu-Cheks every 6 hours with hypoglycemia protocols. - Time Time Spent with patient: 35 or more minutes Medications reviewed and adjusted accordingly: Yes Anticipated discharge: SNF
[2017-06-04] MEDS ORDERED: NORMAL SALINE 1000 ML 1,000 ML IV PRN (14:34)
[2017-06-04] MEDS ORDERED: DEXTROSE 5%-LACTATED RINGERS 1,000 ML IV PRN (15:24)
[2017-06-04] MEDS ORDERED: NORMAL SALINE 1000 ML 1,000 ML IV ONE (15:30)
[2017-06-04] MEDS: ATORVASTATIN CALCIUM 80 MG TABLET PO SCH (20:19)
[2017-06-05] MEDS: HYDRALAZINE HCL INJ/PF 20 MG/1 ML SDV IV PRN (03:50)
[2017-06-05] MEDS: METOPROLOL TARTRATE PF/INJ 5 MG/5 ML SDV IV SCH ×4 (05:21→23:52)
[2017-06-05 06:40] LABS: ANION GAP 14 (5-19); BLOOD UREA NITROGEN 7 mg/dL (7-20); CALCIUM 10.3 mg/dL (8.4-10.2); CARBON DIOXIDE 23 mmol/L (22-30); CHLORIDE 110 mmol/L (98-107); CREATINE KINASE 142 U/L (55-170); GLUCOSE 100 mg/dL (75-110); POTASSIUM 3.3 mmol/L (3.6-5.0); SODIUM 146.8 mmol/L (137-145)
[2017-06-05 06:47] LABS: HEMATOCRIT 47.2 % (37.9-51.0); HEMOGLOBIN 15.4 g/dL (13.5-17.0); MEAN CORPUSCULAR HGB CONC 32.6 g/dL (32.0-36.0); MEAN CORPUSCULAR VOLUME 86 fl (80-97); RED CELL DISTRIBUTION WIDTH 14.4 % (11.5-14.0)
[2017-06-05 07:46] LABS: PLATELET COUNT 178 10^3/uL (150-450)
[2017-06-05] MEDS: IPRATROPIUM/ALBUTEROL 0.5-2.5 MG/3 ML AMPUL NEB SCH ×3 (07:53→20:27)
[2017-06-05] MEDS: DEXTROSE 5%-1/2 NORMAL SALINE 1,000 ML IV PRN (08:57)
[2017-06-05] MEDS: POTASSI CL 20 MEQ/50 ML RIDER 20 MEQ/50 ML RTUPB IV SCH ×3 (08:58→15:37)
[2017-06-05] MEDS: FAMOTIDINE INJ/PF 20 MG/2 ML SDV IV SCH ×2 (09:18→22:01)
[2017-06-05] MEDS: ASPIRIN 300 MG SUPP, RECTAL PR SCH (09:18)
--- NOTE | 2017-06-05 11:05 | PDOC PROGRESS REPORT ---
Subjective Progress Note for:: 06/05/17 Reason For Visit: CEREBROVASCULAR ACCIDENT (CVA) Patient is a 71-year-old male status post recurrent CVA with extension of neurologic deficit. Patient had following evaluation this morning but was too sleepy. At time of my rounds, patient was given some ice chips seated to have near aspiration. Physical Exam Vital Signs: Temp Pulse Resp BP Pulse Ox 98.5 F 90 24 H 169/97 H 95 06/05/17 07:39 06/05/17 07:50 06/05/17 07:50 06/05/17 07:39 06/05/17 07:50 Intake & Output 06/04/17 06/05/17 06/06/17 06:59 06:59 06:59 Intake Total 1384 1972 Balance 1384 1972 Weight 76.9 kg 76.9 kg General appearance: PRESENT: no acute distress, other Respiratory exam: PRESENT: other - Evidence of previous tracheostomy. GI/Abdominal exam: PRESENT: other - Abdomen exposed, benign. Scar left upper quadrant consistent with previous PEG tube placement from 4 years ago, [facility]. Results Laboratory Results: 06/05/17 05:19 06/05/17 05:19 06/05/17 06/05/17 05:19 05:19 WBC 6.0 RBC 5.50 Hgb 15.4 Hct 47.2 MCV 86 MCH 28.0 MCHC 32.6 RDW 14.4 H Plt Count 178 Sodium 146.8 H Potassium 3.3 L Chloride 110 H Carbon Dioxide 23 Anion Gap 14 BUN 7 Creatinine 1.14 Est GFR ( Amer) > 60 Est GFR (Non-Af Amer) > 60 Glucose 100 Calcium 10.3 H 05/30/17 05/30/17 05/30/17 17:17 17:17 22:00 Creatine Kinase 192 H 614 H CK-MB (CK-2) 1.75 Troponin I 0.039 NT-Pro-B Natriuret Pep 05/30/17 05/31/17 05/31/17 22:00 03:10 03:10 Creatine Kinase 603 H CK-MB (CK-2) 2.26 1.74 Troponin I 0.040 0.035 NT-Pro-B Natriuret Pep 896 06/01/17 06/02/17 06/03/17 06:46 04:42 05:14 Creatine Kinase 937 H 620 H 350 H CK-MB (CK-2) Troponin I NT-Pro-B Natriuret Pep 06/03/17 06/05/17 17:00 05:19 Creatine Kinase 142 CK-MB (CK-2) Troponin I 0.021 NT-Pro-B Natriuret Pep 669 Impressions: Head MRI 05/30/17 00:00 IMPRESSION: Acute infarct external capsule basal ganglia on the right. Chronic left MCA distribution infarct. Atrophy and microvascular ischemia. EVIDENCE OF ACUTE STROKE: Yes RIGHT MCA Head CT 05/30/17 10:16 IMPRESSION: No acute findings-no intracranial hemorrhage. Old left hemispheric infarct. EVIDENCE OF ACUTE STROKE: NO. Head CTA 05/30/17 10:33 IMPRESSION: NO CTA EVIDENCE OF STENOSIS OR ANEURYSM OF THE [place] OF [place]. Neck CTA 05/30/17 10:33 IMPRESSION: No evidence of dissection or significant stenosis. KUB X-Ray 06/01/17 10:47 IMPRESSION: NG tube with its tip at the level of the proximal stomach in the left upper quadrant. Other findings as noted above Chest X-Ray 06/02/17 00:00 IMPRESSION: NO ACUTE RADIOGRAPHIC FINDING IN THE CHEST. Assessment & Plan - Diagnosis (1) Dysphasia Is this a current diagnosis for this admission?: Yes Plan: Patient has demonstrated a near or probable aspiration after a few sips of water and ice chips. I have discussed patient's clinical condition with primary care team, as well as patient's sister and nephew. Consensus is encouraged that a feeding tube is appropriate. Patient's sister, the healthcare power of compliance attorney, understands the risks benefits and alternatives as well as the objective of the planned procedure and agrees to proceed. Plan: 1. Hold Lovenox-done 2. Plan for PEG tube placement in the OR under LMAC anesthesia. The counts of the operation were discussed with the patient family and they agree to proceed.
[2017-06-05] MEDS ORDERED: PROPOFOL INJ 200 MG/20 ML VIAL IV ONE (12:44)
[2017-06-05] MEDS ORDERED: LIDOCAINE 1% INJ-PF (10 MG/ML) 30 ML SDV ONE (13:40)
--- NOTE | 2017-06-05 14:18 | Operative Report ---
Operative Report DATE OF SURGERY: 06/05/17 PREOPERATIVE DIAGNOSIS: Status post CVA with dysphasia and aspiration POSTOPERATIVE DIAGNOSIS: Same OPERATION: 1. Esophagogastroduodenoscopy. 2. Placement of percutaneous endoscopic gastrostomy tube, 20 German, endovie SURGEON: [place] ANESTHESIA: LMAC TISSUE REMOVED OR ALTERED: None COMPLICATIONS: None ESTIMATED BLOOD LOSS: Scant INTRAOPERATIVE FINDINGS: See below PROCEDURE: Patient was taken from the holding area the main operating room where LMAC anesthesia was induced. Oral mouthpiece inserted, additional IV access established and the patient placed in reverse Trendelenburg position. Her graft surgical plan surgical timeout conducted The flexible upper endo scope was introduced to the patient's oropharynx, down the upper esophagus through the stomach and into the duodenum. This is well tolerated by the patient. The duodenum was normal, the stomach was essentially unremarkable with no evidence of gastritis tumor or bleeding. The esophagus was significant for no lesions identified. A suitable location for placement of the PEG was chosen in the left upper quadrant at the site of the previous PEG scar. The tissue was anesthetized with Betadine, quarter percent Marcaine, and 11 blade was used to make a small incision in the skin. The needle and Jelco were then threaded through the anterior abdominal wall into the anterior stomach wall into the lumen of the stomach. The needle was removed leaving Jelco in position. The guidewire was threaded through the Jelco, and the tip of the wire in the patient's gastric lumen was with the snare. Snare, scope and wire wall part of the patient's oropharynx. A 20 German Endo I pullout tube was pushed over the wire and the tube brought up to the intra-abdominal wall. Repeat endoscopy confirmed a flange in good position, with the appropriate thickness of abdominal wall between the flange and the exit markings , approximately 3 cm. Nice rotation of the feeding tube there was no evidence of bleeding or heme The flexible endoscope was removed, appropriate bolsters applied such that they were of appropriate tension, and the feeding tube occluded with the plug. Patient tolerated procedure well and taken recovery room stable condition.
--- NOTE | 2017-06-05 15:31 | PDOC PROGRESS REPORT ---
Subjective Progress Note for:: 06/05/17 Subjective:: The patient is a 71-year-old male with a past medical history of a CVA approximately 2 years ago that resulted in mild right-sided hemiparesis, congestive heart failure, OH, hypertension, COPD, and schizoaffective disorder. He was admitted on 05/30/17 with an acute Rt side CVA resulting in profound left hemiparesis, aphasia, dysphasia, and somnolence. He is seen on morning rounds resting comfortably on room air. Unfortunately, no family members are present. He is awake and does attempt to communicate verbally, though is extremely difficult to understand. I believe he was able to confirm that he was not in pain. Failed speech screening again today; scheduled for PEG this afternoon. Reason For Visit: CEREBROVASCULAR ACCIDENT (CVA) Physical Exam Vital Signs: Temp Pulse Resp BP Pulse Ox 98.3 F 83 20 164/83 H 98 06/05/17 11:35 06/05/17 11:35 06/05/17 11:35 06/05/17 11:35 06/05/17 11:35 Intake & Output 06/04/17 06/05/17 06/06/17 06:59 06:59 06:59 Intake Total 1384 1972 0 Balance 1384 1972 0 Weight 76.9 kg 76.9 kg General appearance: PRESENT: no acute distress, well-developed, well-nourished, other - Overweight Head exam: PRESENT: atraumatic, normocephalic Eye exam: PRESENT: conjunctiva pink, EOMI, PERRLA. ABSENT: scleral icterus Ear exam: PRESENT: normal external ear exam Mouth exam: PRESENT: moist, tongue midline Neck exam: ABSENT: carotid bruit, JVD, lymphadenopathy, thyromegaly Respiratory exam: PRESENT: clear to auscultation eric, symmetrical, unlabored. ABSENT: rales, rhonchi, wheezes Cardiovascular exam: PRESENT: RRR, +S1, +S2. ABSENT: diastolic murmur, rubs, systolic murmur Pulses: PRESENT: normal dorsalis pedis pul Vascular exam: PRESENT: normal capillary refill GI/Abdominal exam: PRESENT: normal bowel sounds, soft. ABSENT: distended, guarding, mass, organolmegaly, rebound, tenderness Rectal exam: PRESENT: deferred Extremities exam: ABSENT: calf tenderness, clubbing, full ROM, pedal edema Neurological exam: PRESENT: alert, awake, aphasic, other - Expressive aphasia. The patient has improved alertness and attempts to communicate today. He makes efforts to follow one-step commands. He exhibits movements to his right upper and lower extremity. He is able to move the toes of his left foot. He continues to have no movement to the left arm.. ABSENT: CN II-XII grossly intact, motor sensory deficit Psychiatric exam: ABSENT: homicidal ideation, suicidal ideation Skin exam: PRESENT: dry, intact, warm. ABSENT: cyanosis, rash Results Laboratory Results: 06/05/17 05:19 06/05/17 05:19 06/05/17 06/05/17 05:19 05:19 WBC 6.0 RBC 5.50 Hgb 15.4 Hct 47.2 MCV 86 MCH 28.0 MCHC 32.6 RDW 14.4 H Plt Count 178 Sodium 146.8 H Potassium 3.3 L Chloride 110 H Carbon Dioxide 23 Anion Gap 14 BUN 7 Creatinine 1.14 Est GFR ( Amer) > 60 Est GFR (Non-Af Amer) > 60 Glucose 100 Calcium 10.3 H 05/30/17 05/30/17 05/30/17 17:17 17:17 22:00 Creatine Kinase 192 H 614 H CK-MB (CK-2) 1.75 Troponin I 0.039 NT-Pro-B Natriuret Pep 05/30/17 05/31/17 05/31/17 22:00 03:10 03:10 Creatine Kinase 603 H CK-MB (CK-2) 2.26 1.74 Troponin I 0.040 0.035 NT-Pro-B Natriuret Pep 896 06/01/17 06/02/17 06/03/17 06:46 04:42 05:14 Creatine Kinase 937 H 620 H 350 H CK-MB (CK-2) Troponin I NT-Pro-B Natriuret Pep 06/03/17 06/05/17 17:00 05:19 Creatine Kinase 142 CK-MB (CK-2) Troponin I 0.021 NT-Pro-B Natriuret Pep 669 Impressions: Head MRI 05/30/17 00:00 IMPRESSION: Acute infarct external capsule basal ganglia on the right. Chronic left MCA distribution infarct. Atrophy and microvascular ischemia. EVIDENCE OF ACUTE STROKE: Yes RIGHT MCA Head CT 05/30/17 10:16 IMPRESSION: No acute findings-no intracranial hemorrhage. Old left hemispheric infarct. EVIDENCE OF ACUTE STROKE: NO. Head CTA 05/30/17 10:33 IMPRESSION: NO CTA EVIDENCE OF STENOSIS OR ANEURYSM OF THE [place]. Neck CTA 05/30/17 10:33 IMPRESSION: No evidence of dissection or significant stenosis. KUB X-Ray 06/01/17 10:47 IMPRESSION: NG tube with its tip at the level of the proximal stomach in the left upper quadrant. Other findings as noted above Chest X-Ray 06/02/17 00:00 IMPRESSION: NO ACUTE RADIOGRAPHIC FINDING IN THE CHEST. Assessment & Plan - Diagnosis (1) Acute CVA (cerebrovascular accident) Is this a current diagnosis for this admission?: Yes Plan: Acute right sided cryptogenic MCA artery CVA with cerebral infarction, resulting in dysphasia, aphasia, left sided hemiparesis/neglect that is persistent and unlikely to improve. MRI of the head reveals an acute infarction of the external capsule basal ganglia on the right. Chronic left MCA distribution infarct. Atrophy and microvascular ischemia. A CTA of the head did not demonstrate stenosis or aneurysm of the [place]. A CTA of the neck did not demonstrate significant stenosis of the carotids. Echocardiogram demonstrated a left ventricular ejection fraction of 45%. No evidence of a cardiac source of thrombosis. Lipid panel demonstrates an elevated LDL at 131, HDL of 74, total cholesterol of 235. Hemoglobin A1c is 6.2%. He is admitted to [facility] on continuous cardiac telemetry. The patient was chronically anticoagulated on Xarelto as an outpatient; will resume full dose Lovenox following PEG placement. Anticipate transitioning back to Xarelto in the near future.. PT/OT/ST to evaluate and treat per protocols. Appreciate palliative care's assistance in establishing goals of care. Will ask the senior program planner to meet with the family to discuss disposition; pt's sister is interested in LTC. (2) Dysphasia Is this a current diagnosis for this admission?: Yes Plan: Related to CVA. PEG this afternoon. Appreciate the registered dietitians evaluation recommendations. We are monitoring Accu-Cheks every 6 hours with Humalog sliding scale insulin as needed and hypoglycemia protocol in place. Aspiration precautions. (3) Coronary artery disease Is this a current diagnosis for this admission?: Yes Plan: Hx of [place]. Currently n.p.o. He is currently on full dose Lovenox. He will receive daily aspirin (4) Diastolic congestive heart failure Is this a current diagnosis for this admission?: Yes Plan: Echocardiogram treated left ventricular ejection fraction of 45%. Will monitor closely for evidence of fluid volume overload r/t IVF. Will monitor strict I's and O's and daily weights. (5) Expressive aphasia Is this a current diagnosis for this admission?: Yes Plan: The patient did have some moderate expressive aphasia which appears to be worsened per family report; the patient is now entirely nonverbal. He does make attempts to answer yes or no questions, however, he is noted to be inappropriately answering these questions. Some garbled speech today. Speech therapy has been consulted. (6) [facility] current use of anticoagulant Is this a current diagnosis for this admission?: Yes (7) Tobacco abuse Is this a current diagnosis for this admission?: Yes Plan: Smoking cessation is encouraged and nicotine replacement therapies have been provided. (8) Schizoaffective disorder Qualifiers: Schizoaffective disorder type: unspecified Qualified Code(s): F25.9 - Schizoaffective disorder, unspecified Is this a current diagnosis for this admission?: Yes Plan: The patient does have an underlying schizoaffective disorder who is maintained on Zyprexa. He cannot safely swallow at this point. IV Haldol is available every 6 hours as needed for agitation. (9) Aspiration pneumonia Is this a current diagnosis for this admission?: Yes Plan: Ruled out. The patient was noted to have a significant cough upon admission. There was concern that he may have aspirated during the CVA event. His chest x-ray did not reveal acute cardiopulmonary processes and follow-up imaging was identical. The patient remained afebrile overnight. His WBC count is normal. His lung sounds are clear. He is maintaining oxygen saturations while on room air. Aspiration precautions are instituted. (10) Muscle spasm Is this a current diagnosis for this admission?: Yes Plan: Resolved. CK is trending down. Will continue to monitor electrolytes with daily chemistry. Will trial low dose IV Toradol. (11) Acute on chronic renal failure Is this a current diagnosis for this admission?: Yes Plan: Resolved; creatinine has returned to his baseline of 1.21 Will avoid nephrotoxic medications. Will continue gentle IVF. Will monitor with daily chemistry. (12) Rhabdomyolysis Is this a current diagnosis for this admission?: Yes Plan: Resolved; the creatinine kinase has returned to normal levels. The patient has been placed on a specialty mattress, nursing is repositioning every 2 hours. He is receiving IV fluids. We will continue to monitor. (13) Hypoglycemia Is this a current diagnosis for this admission?: Yes Plan: Secondary to n.p.o. status. The fluids are changed to D5 LR. Accu-Cheks every 6 hours with hypoglycemia protocols. (14) Hypokalemia Is this a current diagnosis for this admission?: Yes Plan: Secondary to prolonged n.p.o. status. We will replace. We will continue to monitor and replace as needed. - Time Time Spent with patient: 25-34 minutes Medications reviewed and adjusted accordingly: Yes Anticipated discharge: SNF
[2017-06-05] MEDS: ATORVASTATIN CALCIUM 80 MG TABLET PO SCH (22:00)
--- NOTE | 2017-06-05 23:45 | Progress Note ---
Provider Note Provider Note: Palliative care follow up visit 06/05/17 3:50pm Brief visit to follow up with patient after long conversation with family yesterday. Patient did not pass the repeated swallow testing so his family opted for reinsertion of PEG tube for feedings. They said he could not go without nutrition since he is showing signs of improvement. Patients family is convinced that patient will not pull out PEG this time since he cannot move his left arm now and right arm is still so weak. They are still interested in SNF placement for rehab but have not started bed requests yet since they decided on feeding tube for today. Patient is returning from surgery and looks awake without distress. No respiratory changes, color good and patient is smiling at family. No change in code status at this time. Will follow.
[2017-06-06] MEDS: KETOROLAC TROMETHAMINE INJ/PF 30 MG/1 ML SDV IV PRN ×2 (03:27→18:46)
[2017-06-06] MEDS: HYDRALAZINE HCL INJ/PF 20 MG/1 ML SDV IV PRN (03:35)
[2017-06-06 05:10] LABS: HEMATOCRIT 41.8 % (37.9-51.0); HEMOGLOBIN 13.6 g/dL (13.5-17.0); MEAN CORPUSCULAR HEMOGLOBIN 27.6 pg (27.0-33.4); MEAN CORPUSCULAR HGB CONC 32.7 g/dL (32.0-36.0); MEAN CORPUSCULAR VOLUME 85 fl (80-97); PLATELET COUNT 192 10^3/uL (150-450); RED BLOOD COUNT 4.94 10^6/uL (4.35-5.55); RED CELL DISTRIBUTION WIDTH 14.7 % (11.5-14.0); WHITE BLOOD COUNT 7.5 10^3/uL (4.0-10.5)
[2017-06-06] MEDS: METOPROLOL TARTRATE PF/INJ 5 MG/5 ML SDV IV SCH ×4 (05:17→23:43)
[2017-06-06 05:29] LABS: ANION GAP 12 (5-19); BLOOD UREA NITROGEN 10 mg/dL (7-20); CALCIUM 9.6 mg/dL (8.4-10.2); CARBON DIOXIDE 18 mmol/L (22-30); CHLORIDE 113 mmol/L (98-107); GLUCOSE 100 mg/dL (75-110); POTASSIUM 3.6 mmol/L (3.6-5.0); SODIUM 142.8 mmol/L (137-145)
[2017-06-06] MEDS: IPRATROPIUM/ALBUTEROL 0.5-2.5 MG/3 ML AMPUL NEB SCH ×3 (08:19→20:34)
[2017-06-06] MEDS: ASPIRIN 300 MG SUPP, RECTAL PR SCH (10:30)
[2017-06-06] MEDS: FAMOTIDINE INJ/PF 20 MG/2 ML SDV IV SCH ×2 (10:30→21:10)
[2017-06-06] MEDS: DEXTROSE 5%-1/2 NORMAL SALINE 1,000 ML IV PRN (13:47)
--- NOTE | 2017-06-06 17:49 | PDOC PROGRESS REPORT ---
Subjective Progress Note for:: 06/06/17 Subjective:: DALY PORTILLO is a 71-year-old male with a past medical history of CVA in 2016 that resulted in mild right-sided hemiparesis. He was admitted on with a right sided MCA CVA resulting in left-sided hemiparesis, persistent neglect, dysphagia, aphasia. The patient also has a PMH of congestive heart failure, CT, hypertension, COPD, schizoaffective disorder. Patient seen on morning rounds and is resting comfortably in the bed. He is awake and attempts to communicate verbally, but is only able to mumble. The patient shakes his head 'NO' when asked if he is in pain. He is able to track movement with his eyes but there is R sided neglect. The patient is day 1 post- op from PEG placement, no enteral feeding has been started yet. Reason For Visit: CEREBROVASCULAR ACCIDENT (CVA) Physical Exam Vital Signs: Temp Pulse Resp BP Pulse Ox 97.8 F 75 20 152/92 H 96 06/06/17 11:52 06/06/17 14:00 06/06/17 13:52 06/06/17 11:52 06/06/17 13:52 Intake & Output 06/05/17 06/06/17 06/07/17 06:59 06:59 06:59 Intake Total 1971 2815 825 Output Total 0 Balance 1971 2815 825 Weight 76.9 kg 79.1 kg General appearance: PRESENT: no acute distress, well-developed, well-nourished Head exam: PRESENT: atraumatic, normocephalic Eye exam: PRESENT: conjunctiva pink, PERRLA Mouth exam: PRESENT: moist Teeth exam: PRESENT: poor dentation Respiratory exam: PRESENT: clear to auscultation eric Cardiovascular exam: PRESENT: +S1, +S2 Pulses: PRESENT: normal radial pulses, +1 pedal pulses bilateral Vascular exam: PRESENT: normal capillary refill GI/Abdominal exam: PRESENT: normal bowel sounds Rectal exam: PRESENT: deferred Extremities exam: PRESENT: +1 edema Musculoskeletal exam: PRESENT: other - no gross motor movement in any extremity. 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 only movement with feet is 2/2 painful stimuli Neurological exam: PRESENT: awake, aphasic Results Laboratory Results: 06/06/17 04:36 06/06/17 04:36 06/06/17 06/06/17 04:36 04:36 WBC 7.5 RBC 4.94 Hgb 13.6 Hct 41.8 MCV 85 MCH 27.6 MCHC 32.7 RDW 14.7 H Plt Count 192 Sodium 142.8 Potassium 3.6 Chloride 113 H Carbon Dioxide 18 L Anion Gap 12 BUN 10 Creatinine 1.19 Est GFR ( Amer) > 60 Est GFR (Non-Af Amer) > 60 Glucose 100 Calcium 9.6 05/30/17 05/30/17 05/30/17 17:17 17:17 22:00 Creatine Kinase 192 H 614 H CK-MB (CK-2) 1.75 Troponin I 0.039 NT-Pro-B Natriuret Pep 05/30/17 05/31/17 05/31/17 22:00 03:10 03:10 Creatine Kinase 603 H CK-MB (CK-2) 2.26 1.74 Troponin I 0.040 0.035 NT-Pro-B Natriuret Pep 896 06/01/17 06/02/17 06/03/17 06:46 04:42 05:14 Creatine Kinase 937 H 620 H 350 H CK-MB (CK-2) Troponin I NT-Pro-B Natriuret Pep 06/03/17 06/05/17 17:00 05:19 Creatine Kinase 142 CK-MB (CK-2) Troponin I 0.021 NT-Pro-B Natriuret Pep 669 Impressions: Head MRI 05/30/17 00:00 IMPRESSION: Acute infarct external capsule basal ganglia on the right. Chronic left MCA distribution infarct. Atrophy and microvascular ischemia. EVIDENCE OF ACUTE STROKE: Yes RIGHT MCA Head CT 05/30/17 10:16 IMPRESSION: No acute findings-no intracranial hemorrhage. Old left hemispheric infarct. EVIDENCE OF ACUTE STROKE: NO. Head CTA 05/30/17 10:33 IMPRESSION: NO CTA EVIDENCE OF STENOSIS OR ANEURYSM OF THE [place] OF [place]. Neck CTA 05/30/17 10:33 IMPRESSION: No evidence of dissection or significant stenosis. KUB X-Ray 06/01/17 10:47 IMPRESSION: NG tube with its tip at the level of the proximal stomach in the left upper quadrant. Other findings as noted above Chest X-Ray 06/02/17 00:00 IMPRESSION: NO ACUTE RADIOGRAPHIC FINDING IN THE CHEST. Assessment & Plan - Diagnosis (1) Acute CVA (cerebrovascular accident) Is this a current diagnosis for this admission?: Yes Plan: MCA CVA with cerebral infarction. MRI of the head reveals an acute infarct of the external capsule basal ganglia. Chronic left MCA distribution infarct. Atrophy and mocrovascular ischemia. CTA head: no stenosis or aneurysm at [place]. CTA neck: no stenosis of carotids. Echocardiogram demonstrates LVEF 45%, no evidence of thrombus. Dysphagia, aphasia, L hemiparesis, neglect are all persistent - unlikely to improve. Patient was chronically anticoagulated on Xarelto as an outpatient, resumed full dose Lovenox following PEG placement. Anticipate transition back to xarelto. PT/OT to evaluate and treat. Family has discussed acute rehab and long-term care with workforce planner. Despite large family, multiple children have stated that they are unable to care for the patient at home. (2) Dysphasia Is this a current diagnosis for this admission?: Yes Plan: Secondary to acute R MCA CVA. Post-op day 1 PEG placement. Started on enteral feeding today following recommendations of registered dietitian. Aspiration precautions. Monitoring Accu-Cheks every 6 hours with sliding scale insulin as needed. (3) Expressive aphasia Is this a current diagnosis for this admission?: Yes Plan: Severe expressive aphasia, patient is entirely nonverbal. He does make attempts to answer yes/no questions, but regularly just mumbles. Speech is very garbled. Failed multiple swallow evaluations, PEG was placed yesterday. (4) Diastolic congestive heart failure Qualifiers: Heart failure chronicity: chronic Qualified Code(s): I50.32 - Chronic diastolic (congestive) heart failure Is this a current diagnosis for this admission?: Yes Plan: Echocardiogram demonstrates left ventricular ejection fraction 45%. Monitor strict I/O. Avoid excessive use of IVF for risk of volume overload. (5) Hypoglycemia Is this a current diagnosis for this admission?: Yes Plan: Secondary to NPO status prior to PEG placement. Should resolve now that patient has been restarted on enteral feeding. (6) Hypokalemia Is this a current diagnosis for this admission?: Yes Plan: Secondary to prolonged NPO status. Should return to baseline now that patient is being fed via PEG. (7) Schizoaffective disorder Qualifiers: Schizoaffective disorder type: unspecified Qualified Code(s): F25.9 - Schizoaffective disorder, unspecified Is this a current diagnosis for this admission?: Yes Plan: Patient has underlying schizoaffective disorder, maintained on Zyprexa. IV Haldol every 6 hours as needed for agitation. Now that PEG is in place, will restart home dose of Zyprexa. (8) Coronary artery disease Qualifiers: Coronary Disease-Associated Artery/Lesion type: unspecified vessel or lesion type [place] vs. transplanted heart: unspecified whether [place] or transplanted heart Associated angina: without angina Qualified Code(s): I25.10 - Atherosclerotic heart disease of [place] coronary artery without angina pectoris Is this a current diagnosis for this admission?: Yes Plan: History of CT. Continue aspirin therapy. (9) Rhabdomyolysis Qualifiers: Rhabdomyolysis type: traumatic Encounter type: initial encounter Qualified Code(s): T79.6XXA - Traumatic ischemia of muscle, initial encounter Is this a current diagnosis for this admission?: Yes Plan: Resolved. The creatinine kinase has received return to normal levels. Patient has been placed on a specialty mattress. Nursing is to reposition every 2 hours. Continue IV fluids. - Inpatient Certification Based on my medical assessment, after consideration of the patient's comorbidities, presenting symptoms, or acuity I expect that the services needed warrant INPATIENT care.: Yes I certify that my determination is in accordance with my understanding of Medicare's requirements for reasonable and necessary INPATIENT services [42 CFR 412.3e].: Yes Medical Necessity: Risk of Complication if Not Cared For in Hospital - Plan Summary Plan Summary: discharge to rehab
[2017-06-06] MEDS ORDERED: OLANZAPINE 5 MG TABLET PEG ONE (19:00)
[2017-06-06] MEDS: ENOXAPARIN SODIUM INJ 80 MG/0.8 ML DISP.SYRIN SUBCUT SCH (21:10)
[2017-06-06] MEDS: ATORVASTATIN CALCIUM 80 MG TABLET PO SCH (21:10)
[2017-06-07] MEDS: METOPROLOL TARTRATE PF/INJ 5 MG/5 ML SDV IV SCH ×4 (05:28→23:29)
[2017-06-07] MEDS: HYDRALAZINE HCL INJ/PF 20 MG/1 ML SDV IV PRN (05:29)
[2017-06-07] MEDS: IPRATROPIUM/ALBUTEROL 0.5-2.5 MG/3 ML AMPUL NEB SCH ×3 (08:28→20:17)
[2017-06-07 08:37] LABS: ANION GAP 10 (5-19); BLOOD UREA NITROGEN 11 mg/dL (7-20); CALCIUM 10.1 mg/dL (8.4-10.2); CARBON DIOXIDE 23 mmol/L (22-30); CHLORIDE 112 mmol/L (98-107); GLUCOSE 88 mg/dL (75-110); PHOSPHORUS 3.4 mg/dL (2.5-4.5); POTASSIUM 3.7 mmol/L (3.6-5.0); SODIUM 145.2 mmol/L (137-145)
[2017-06-07 09:16] LABS: HEMATOCRIT 45.5 % (37.9-51.0); HEMOGLOBIN 14.8 g/dL (13.5-17.0); MEAN CORPUSCULAR HEMOGLOBIN 27.4 pg (27.0-33.4); MEAN CORPUSCULAR HGB CONC 32.5 g/dL (32.0-36.0); MEAN CORPUSCULAR VOLUME 84 fl (80-97); RED BLOOD COUNT 5.39 10^6/uL (4.35-5.55); RED CELL DISTRIBUTION WIDTH 14.6 % (11.5-14.0); WHITE BLOOD COUNT 6.8 10^3/uL (4.0-10.5)
[2017-06-07 09:49] LABS: PLATELET COUNT 154 10^3/uL (150-450)
[2017-06-07] MEDS: ASPIRIN 300 MG SUPP, RECTAL PR SCH (09:59)
[2017-06-07] MEDS: FAMOTIDINE INJ/PF 20 MG/2 ML SDV IV SCH ×2 (09:59→21:35)
[2017-06-07] MEDS: ENOXAPARIN SODIUM INJ 80 MG/0.8 ML DISP.SYRIN SUBCUT SCH ×2 (10:04→21:34)
--- NOTE | 2017-06-07 16:48 | PDOC PROGRESS REPORT ---
Subjective Progress Note for:: 06/07/17 Subjective:: DALY PORTILLO is a 71-year-old male with a past medical history of CVA in 2016 that resulted in mild right-sided hemiparesis. 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 The patient also has a PMH of congestive heart failure, [place], hypertension, COPD, schizoaffective disorder. Patient seen on morning rounds and is resting comfortably in the bed. He is awake and attempts to communicate verbally, but is only able to mumble. The patient shakes his head 'NO' when asked if he is in pain, but does not consistently answer YES/NO questions correctly. He is able to track movement with his eyes but there is R sided neglect. The patient is day 2 post-op from PEG placement, enteral feeding has been started, currently at 45mL/hr. Once patient reaches goal of 65mL/hr, and he is tolerating, he can transfer to [facility] Reason For Visit: CEREBROVASCULAR ACCIDENT (CVA) Physical Exam Vital Signs: Temp Pulse Resp BP Pulse Ox 98.5 F 95 14 147/83 H 91 L 06/07/17 07:29 06/07/17 08:28 06/07/17 08:28 06/07/17 07:29 06/07/17 08:28 Intake & Output 06/06/17 06/07/17 06/08/17 06:59 06:59 06:59 Intake Total 2815 1637 Output Total 0 Balance 2815 1637 Weight 79.1 kg 81 kg General appearance: PRESENT: no acute distress, well-developed, well-nourished Eye exam: PRESENT: conjunctiva pink, PERRLA, other - R neglect Mouth exam: PRESENT: moist Teeth exam: PRESENT: poor dentation Respiratory exam: PRESENT: clear to auscultation eric Cardiovascular exam: PRESENT: +S1, +S2 Pulses: PRESENT: normal radial pulses, +1 pedal pulses bilateral GI/Abdominal exam: PRESENT: normal bowel sounds, soft Rectal exam: PRESENT: deferred Extremities exam: PRESENT: other - no gross motor movement in any extremity Musculoskeletal exam: PRESENT: other - no gross motor movement in any extremity. unable to ambulate. bedbound. some fine motor movement in both hands. withdraw to painful stimuli in both feet Neurological exam: PRESENT: awake, aphasic Skin exam: PRESENT: dry, intact, normal color Results Laboratory Results: 06/07/17 05:13 06/07/17 05:13 06/07/17 06/07/17 05:13 05:13 WBC 6.8 RBC 5.39 Hgb 14.8 Hct 45.5 MCV 84 MCH 27.4 MCHC 32.5 RDW 14.6 H Plt Count 154 Sodium 145.2 H Potassium 3.7 Chloride 112 H Carbon Dioxide 23 Anion Gap 10 BUN 11 Creatinine 1.26 H Est GFR ( Amer) > 60 Est GFR (Non-Af Amer) 57 L Glucose 88 Calcium 10.1 Phosphorus 3.4 Magnesium 1.9 05/30/17 05/30/17 05/30/17 17:17 17:17 22:00 Creatine Kinase 192 H 614 H CK-MB (CK-2) 1.75 Troponin I 0.039 NT-Pro-B Natriuret Pep 05/30/17 05/31/17 05/31/17 22:00 03:10 03:10 Creatine Kinase 603 H CK-MB (CK-2) 2.26 1.74 Troponin I 0.040 0.035 NT-Pro-B Natriuret Pep 896 06/01/17 06/02/17 06/03/17 06:46 04:42 05:14 Creatine Kinase 937 H 620 H 350 H CK-MB (CK-2) Troponin I NT-Pro-B Natriuret Pep 06/03/17 06/05/17 17:00 05:19 Creatine Kinase 142 CK-MB (CK-2) Troponin I 0.021 NT-Pro-B Natriuret Pep 669 Impressions: Head MRI 05/30/17 00:00 IMPRESSION: Acute infarct external capsule basal ganglia on the right. Chronic left MCA distribution infarct. Atrophy and microvascular ischemia. EVIDENCE OF ACUTE STROKE: Yes RIGHT MCA Head CT 05/30/17 10:16 IMPRESSION: No acute findings-no intracranial hemorrhage. Old left hemispheric infarct. EVIDENCE OF ACUTE STROKE: NO. Head CTA 05/30/17 10:33 IMPRESSION: NO CTA EVIDENCE OF STENOSIS OR ANEURYSM OF THE [place]. Neck CTA 05/30/17 10:33 IMPRESSION: No evidence of dissection or significant stenosis. KUB X-Ray 06/01/17 10:47 IMPRESSION: NG tube with its tip at the level of the proximal stomach in the left upper quadrant. Other findings as noted above Chest X-Ray 06/02/17 00:00 IMPRESSION: NO ACUTE RADIOGRAPHIC FINDING IN THE CHEST. Status: Imported from PACS Assessment & Plan - Diagnosis (1) Acute CVA (cerebrovascular accident) Is this a current diagnosis for this admission?: Yes Plan: MCA CVA with cerebral infarction. MRI of the head reveals an acute infarct of the external capsule basal ganglia. Chronic left MCA distribution infarct. Atrophy and mocrovascular ischemia. CTA head: no stenosis or aneurysm at [place]. CTA neck: no stenosis of carotids. Echocardiogram demonstrates LVEF 45%, no evidence of thrombus. Dysphagia, aphasia, L hemiparesis, neglect are all persistent - unlikely to improve. Patient was chronically anticoagulated on Xarelto as an outpatient, resumed full dose Lovenox following PEG placement. Anticipate transition back to xarelto. PT/OT to evaluate and treat. Family has discussed acute rehab and long-term care with business continuity planner. Despite large family, multiple children have stated that they are unable to care for the patient at home. Awaiting transfer to [facility] (2) Dysphasia Is this a current diagnosis for this admission?: Yes Plan: Secondary to acute R MCA CVA. Post-op day 1 PEG placement. Started on enteral feeding yesterday following recommendations of registered dietitian. Patient seems to be tolerating, little to no residuals. Aspiration precautions. Monitoring Accu-Cheks every 6 hours with sliding scale insulin as needed. (3) Expressive aphasia Is this a current diagnosis for this admission?: Yes Plan: Severe expressive aphasia, patient is entirely nonverbal. He does make attempts to answer yes/no questions, but regularly just mumbles. Speech is very garbled. Failed multiple swallow evaluations, PEG was placed 06/05. (4) Diastolic congestive heart failure Qualifiers: Heart failure chronicity: chronic Qualified Code(s): I50.32 - Chronic diastolic (congestive) heart failure Is this a current diagnosis for this admission?: Yes Plan: Echocardiogram demonstrates left ventricular ejection fraction 45%. Monitor strict I/O. Avoid excessive use of IVF for risk of volume overload. (5) Schizoaffective disorder Qualifiers: Schizoaffective disorder type: unspecified Qualified Code(s): F25.9 - Schizoaffective disorder, unspecified Is this a current diagnosis for this admission?: Yes Plan: Patient has underlying schizoaffective disorder, maintained on Zyprexa. Now that PEG is in place, patient is on home dose of Zyprexa. (6) Coronary artery disease Qualifiers: Coronary Disease-Associated Artery/Lesion type: unspecified vessel or lesion type [place] vs. transplanted heart: unspecified whether [place] or transplanted heart Associated angina: without angina Qualified Code(s): I25.10 - Atherosclerotic heart disease of [place] coronary artery without angina pectoris Is this a current diagnosis for this admission?: Yes Plan: History of [place]. Continue aspirin therapy. (7) Rhabdomyolysis Qualifiers: Rhabdomyolysis type: traumatic Encounter type: initial encounter Qualified Code(s): T79.6XXA - Traumatic ischemia of muscle, initial encounter Is this a current diagnosis for this admission?: Yes Plan: Resolved. The creatinine kinase has received return to normal levels. Patient has been placed on a specialty mattress. Nursing is to reposition every 2 hours. Continue IV fluids. - Time Time Spent with patient: 15-24 minutes Medications reviewed and adjusted accordingly: Yes Anticipated discharge: SNF Within: within 24 hours - Inpatient Certification Based on my medical assessment, after consideration of the patient's comorbidities, presenting symptoms, or acuity I expect that the services needed warrant INPATIENT care.: Yes I certify that my determination is in accordance with my understanding of Medicare's requirements for reasonable and necessary INPATIENT services [42 CFR 412.3e].: Yes Medical Necessity: Risk of Complication if Not Cared For in Hospital - Plan Summary Plan Summary: discharge to acute rehab
[2017-06-07] MEDS ORDERED: NORMAL SALINE 1000 ML 1,000 ML IV PRN (19:15)
[2017-06-07] MEDS: ATORVASTATIN CALCIUM 80 MG TABLET PO SCH (21:35)
[2017-06-07] MEDS: OLANZAPINE 5 MG TABLET PEG SCH (21:35)
[2017-06-08] MEDS: KETOROLAC TROMETHAMINE INJ/PF 30 MG/1 ML SDV IV PRN (00:55)
[2017-06-08] MEDS: HALOPERIDOL LACTATE INJ 5 MG/1 ML VIAL IV PRN ×2 (04:03→22:41)
[2017-06-08] MEDS: METOPROLOL TARTRATE PF/INJ 5 MG/5 ML SDV IV SCH ×4 (05:16→23:32)
[2017-06-08] MEDS: IPRATROPIUM/ALBUTEROL 0.5-2.5 MG/3 ML AMPUL NEB SCH ×3 (07:47→19:55)
[2017-06-08] MEDS: ENOXAPARIN SODIUM INJ 80 MG/0.8 ML DISP.SYRIN SUBCUT SCH (09:51)
[2017-06-08] MEDS: FAMOTIDINE INJ/PF 20 MG/2 ML SDV IV SCH ×2 (09:51→22:41)
[2017-06-08] MEDS: ASPIRIN 300 MG SUPP, RECTAL PR SCH (09:52)
--- NOTE | 2017-06-08 12:03 | PDOC DISCHARGE SUMMARY ---
General - Admit/Disc Date/PCP Admission Date/Primary Care Provider: 05/30/17 13:28 FIDEL HANDY, Discharge Date: 06/08/17 - Discharge Diagnosis (1) Acute CVA (cerebrovascular accident) Is this a current diagnosis for this admission?: Yes Summary: MCA CVA with cerebral infarction. MRI of the head reveals an acute infarct of the external capsule basal ganglia. Chronic left MCA distribution infarct. Atrophy and microvascular ischemia. CTA head: Stenosis or aneurysm at the [place]. CTA neck: stenosis of carotids. Echocardiogram demonstrates left ventricular ejection fraction 45%, no evidence of thrombus. Dysphasia, aphasia, left hemiparesis, neglect are all persistent -likely to improve. He was chronically anticoagulated on Xarelto as an outpatient, transitioned back to p.o. anticoagulant following treatment with Lovenox. Family has agreed to send the patient to a [facility] facility. Despite large family, multiple children as stated they are unable to care for the patient at home. At this time the patient is awaiting transfer to [facility]. (2) Dysphasia Is this a current diagnosis for this admission?: Yes Summary: Secondary to acute MCA CVA. She had failed multiple swallow evaluations, PEG tube was placed and patient has tolerated enteral feeding for the last 48 hours. Should not receive anything by mouth at this time (3) Expressive aphasia Is this a current diagnosis for this admission?: Yes Summary: Severe expressive aphasia secondary to MCA CVA. Patient is entirely nonverbal. He does not make attempts to answer yes/no questions, but regularly just mumbles. Speech is very garbled. Failed multiple swallow evaluations, PEG tube was placed June 05. Patient should not receive anything by mouth at this time (4) Diastolic congestive heart failure Is this a current diagnosis for this admission?: Yes Summary: Echocardiogram demonstrates left ventricular ejection fraction of 45%. Pressures are within normal limits. Some evidence of trace to +1 pitting edema in the extremities. (5) Schizoaffective disorder Is this a current diagnosis for this admission?: Yes Summary: Patient has underlying schizoaffective disorder, maintained on Zyprexa. PEG in place, patient is on home dose of Zyprexa. (6) Coronary artery disease Is this a current diagnosis for this admission?: Yes Summary: History of myocardial infarction. Patient is on aspirin therapy - Additional Information Resuscitation Status: Full Code Home Medications: Budesonide/Formoterol Fumarate [Symbicort 160-4.5 Mcg Inhaler] 2 puff IH Q12 Escitalopram Oxalate [Lexapro 10 mg Tablet] 10 mg PO DAILY 05/30/17 Olanzapine [Zyprexa 5 mg Tablet] 5 mg PO DAILY 05/30/17 Rivaroxaban [Xarelto 15 mg Tablet] 15 mg PO DAILY 05/30/17 Simvastatin [Zocor 20 mg Tablet] 20 mg PO QPM 05/30/17 Trazodone HCl [Desyrel] 100 mg PO QHS 05/30/17 History of Present Illness Patient complains of: Acute MCA CVA History of Present Illness: DALY PORTILLO SR is a 71 year old male who presented on 05/30 with a decrease in his level of responsiveness, not following commands, and new left- sided weakness. 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 He was not a candidate for TPA due to the onset of symptoms being greater than 4-1/2 hours from the time he received medical attention. 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 Other past medical history includes CHF, [place], HTN, COPD , affective disorder. Hospital Course Hospital Course: The patient was admitted to the [facility] to be closely monitored. See above regarding problem list and plan. Physical Exam Vital Signs: Temp Pulse Resp BP Pulse Ox 97.8 F 90 14 166/97 H 95 06/08/17 08:29 06/08/17 08:29 06/08/17 08:29 06/08/17 08:29 06/08/17 08:29 Intake & Output 06/07/17 06/08/17 06/09/17 06:59 06:59 06:59 Intake Total 1637 2405 305 Balance 1637 2405 305 Weight 81 kg 77.8 kg General appearance: PRESENT: no acute distress Eye exam: PRESENT: conjunctiva pink Mouth exam: PRESENT: moist Teeth exam: PRESENT: poor dentation Neck exam: PRESENT: other - no gross motor movement Respiratory exam: PRESENT: clear to auscultation eric Cardiovascular exam: PRESENT: +S1, +S2 Pulses: PRESENT: normal radial pulses GI/Abdominal exam: PRESENT: normal bowel sounds, soft, other - enteral feeding via PEG tube Rectal exam: PRESENT: deferred Extremities exam: PRESENT: +1 edema Musculoskeletal exam: PRESENT: other - No gross motor movement in any extremity , some fine motor in both hands. Only withdraw to pain in lower extremities Neurological exam: PRESENT: awake, aphasic Skin exam: PRESENT: dry, intact Results Laboratory Results: 06/07/17 05:13 06/07/17 05:13 05/30/17 05/30/17 05/30/17 17:17 17:17 22:00 Creatine Kinase 192 H 614 H CK-MB (CK-2) 1.75 Troponin I 0.039 NT-Pro-B Natriuret Pep 05/30/17 05/31/17 05/31/17 22:00 03:10 03:10 Creatine Kinase 603 H CK-MB (CK-2) 2.26 1.74 Troponin I 0.040 0.035 NT-Pro-B Natriuret Pep 896 06/01/17 06/02/17 06/03/17 06:46 04:42 05:14 Creatine Kinase 937 H 620 H 350 H CK-MB (CK-2) Troponin I NT-Pro-B Natriuret Pep 06/03/17 06/05/17 17:00 05:19 Creatine Kinase 142 CK-MB (CK-2) Troponin I 0.021 NT-Pro-B Natriuret Pep 669 Impressions: Head MRI 05/30/17 00:00 IMPRESSION: Acute infarct external capsule basal ganglia on the right. Chronic left MCA distribution infarct. Atrophy and microvascular ischemia. EVIDENCE OF ACUTE STROKE: Yes RIGHT MCA Head CT 05/30/17 10:16 IMPRESSION: No acute findings-no intracranial hemorrhage. Old left hemispheric infarct. EVIDENCE OF ACUTE STROKE: NO. Head CTA 05/30/17 10:33 IMPRESSION: NO CTA EVIDENCE OF STENOSIS OR ANEURYSM OF [place]. Neck CTA 05/30/17 10:33 IMPRESSION: No evidence of dissection or significant stenosis. KUB X-Ray 06/01/17 10:47 IMPRESSION: NG tube with its tip at the level of the proximal stomach in the left upper quadrant. Other findings as noted above Chest X-Ray 06/02/17 00:00 IMPRESSION: NO ACUTE RADIOGRAPHIC FINDING IN THE CHEST. Status: Imported from PACS Qualifiers - * PATEINT BEING DISCHARGED WITH ANY OF THE FOLLOWING DIAGNOSIS?: Stroke Stroke Pt being discharged on Anti-thrombolytic therapy?: Yes Stroke Pt being discharged on Anti-coagulation therapy?: Yes Stroke Pt being discharged on Statins?: Yes Plan Discharge Plan: Transfer to [facility] facility Time Spent: Less than 30 Minutes
[2017-06-08] MEDS ORDERED: FUROSEMIDE INJ/PF 40 MG/4 ML SDV ONE (18:10)
--- NOTE | 2017-06-08 18:43 | RADIOLOGY REPORT (SQ) ---
EXAM DESCRIPTION: CHEST SINGLE VIEW COMPLETED DATE/TIME: 06/08/2017 5:52 pm REASON FOR STUDY: sob COMPARISON: 06/02/2017. EXAM PARAMETERS: NUMBER OF VIEWS: One view. TECHNIQUE: Single frontal radiographic view of the chest acquired. RADIATION DOSE: NA LIMITATIONS: None. FINDINGS: LUNGS AND PLEURA: No opacities, masses or pneumothorax. No pleural effusion. MEDIASTINUM AND HILAR STRUCTURES: No masses. Contour normal. HEART AND VASCULAR STRUCTURES: Heart normal in size. Normal vasculature. BONES: No acute findings. HARDWARE: None in the chest. OTHER: No other significant finding. IMPRESSION: NO ACUTE RADIOGRAPHIC FINDING IN THE CHEST. TECHNICAL DOCUMENTATION: JOB ID: [id number] [employer]- All Rights Reserved
[2017-06-08] MEDS ORDERED: FUROSEMIDE INJ/PF 40 MG/4 ML SDV IV ONE (19:00)
[2017-06-08] MEDS: ATORVASTATIN CALCIUM 80 MG TABLET PO SCH (22:41)
[2017-06-08] MEDS: OLANZAPINE 5 MG TABLET PEG SCH (22:41)
[2017-06-09] MEDS: KETOROLAC TROMETHAMINE INJ/PF 30 MG/1 ML SDV IV PRN (03:54)
[2017-06-09] MEDS: IPRATROPIUM/ALBUTEROL 0.5-2.5 MG/3 ML AMPUL NEB PRN (03:56)
[2017-06-09] MEDS ORDERED: LORAZEPAM INJ 2 MG/1 ML VIAL IV ONE (04:15)
[2017-06-09 04:31] LABS: HEMATOCRIT 45.4 % (37.9-51.0); MEAN CORPUSCULAR HEMOGLOBIN 27.7 pg (27.0-33.4); MEAN CORPUSCULAR VOLUME 84 fl (80-97); PLATELET COUNT 226 10^3/uL (150-450); RED BLOOD COUNT 5.42 10^6/uL (4.35-5.55); RED CELL DISTRIBUTION WIDTH 14.5 % (11.5-14.0)
[2017-06-09] MEDS: METOPROLOL TARTRATE PF/INJ 5 MG/5 ML SDV IV SCH ×3 (05:02→17:12)
[2017-06-09] MEDS ORDERED: CLONAZEPAM 1 MG TABLET PO PRN (07:35)
[2017-06-09] MEDS: IPRATROPIUM/ALBUTEROL 0.5-2.5 MG/3 ML AMPUL NEB SCH ×3 (07:42→19:44)
[2017-06-09 08:04] LABS: HEMATOCRIT 44.2 % (37.9-51.0); HEMOGLOBIN 14.6 g/dL (13.5-17.0); MEAN CORPUSCULAR HEMOGLOBIN 27.8 pg (27.0-33.4); MEAN CORPUSCULAR VOLUME 84 fl (80-97); PLATELET COUNT 236 10^3/uL (150-450); RED BLOOD COUNT 5.25 10^6/uL (4.35-5.55); RED CELL DISTRIBUTION WIDTH 14.4 % (11.5-14.0); WHITE BLOOD COUNT 7.5 10^3/uL (4.0-10.5)
[2017-06-09] MEDS: LORAZEPAM INJ 2 MG/1 ML VIAL IV PRN ×2 (08:15→16:21)
[2017-06-09 08:23] LABS: ALANINE AMINOTRANSFERASE 41 U/L (21-72); ALBUMIN 3.9 g/dL (3.5-5.0); ALKALINE PHOSPHATASE 57 U/L (38-126); ANION GAP 12 (5-19); ASPARTATE AMINO TRANSFERASE 22 U/L (17-59); BILIRUBIN,DIRECT 0.4 mg/dL (0.0-0.4); BILIRUBIN,TOTAL 0.4 mg/dL (0.2-1.3); BLOOD UREA NITROGEN 25 mg/dL (7-20); CALCIUM 10.3 mg/dL (8.4-10.2); CARBON DIOXIDE 25 mmol/L (22-30); CHLORIDE 107 mmol/L (98-107); GLUCOSE 101 mg/dL (75-110); POTASSIUM 4.7 mmol/L (3.6-5.0); SODIUM 143.6 mmol/L (137-145); TOTAL PROTEIN 6.9 g/dL (6.3-8.2)
[2017-06-09 08:32] LABS: ABSOLUTE MONOCYTES # (MANUAL) 0.7 10^3/uL (0.1-1.4); ABSOLUTE NEUTROPHILS# (MANUAL) 4.3 10^3/uL (1.7-8.2); BASOPHILS % (MANUAL) 0 % (0-2); EOSINOPHILS % (MANUAL) 7 % (0-6); LYMPHOCYTES % (MANUAL) 27 % (13-45); MONOCYTES % (MANUAL) 9 % (3-13); SEGMENTED NEUTROPHILS % (MAN) 57 % (42-78); TOTAL CELLS COUNTED 100
[2017-06-09 08:35] LABS: ANISOCYTOSIS SLIGHT; BURR CELLS SLIGHT; PLATELET COMMENT ADEQUATE; POIKILOCYTOSIS SLIGHT
[2017-06-09] MEDS ORDERED: METHYLPREDNISOLONE INJ 125 MG/2 ML SDV IV ONE (09:00)
[2017-06-09] MEDS ORDERED: SCOPOLAMINE HYDROBROMIDE 1.5 MG PATCH.TD72 TD ONE (09:30)
[2017-06-09] MEDS: FAMOTIDINE INJ/PF 20 MG/2 ML SDV IV SCH ×2 (09:53→21:34)
[2017-06-09] MEDS: ASPIRIN 300 MG SUPP, RECTAL PR SCH (09:53)
[2017-06-09] MEDS: RIVAROXABAN 15 MG TABLET PO SCH (09:53)
--- NOTE | 2017-06-09 11:10 | PDOC PROGRESS REPORT ---
Subjective Progress Note for:: 06/09/17 Subjective:: DALY PORTILLO is a 71-year-old male with a past medical history of CVA in 2016 that resulted in mild right-sided hemiparesis. He was admitted on with a right sided MCA CVA resulting in left-sided hemiparesis, persistent neglect, dysphagia, aphasia. The patient also has a PMH of congestive heart failure, CT, hypertension, COPD, schizoaffective disorder. The patient was supposed to have been transferred to a SNF yesterday. Just prior to leaving, nursing staff noted that the patient appeared short of breath , tachypneic, and was using accessory muscles to breath. The patient was given Lasix with the idea that he could be fluid overload, a breathing treatment was administered for shortness of breath, and a chest x-ray showed possible aspiration. The patient was given a small dose of ativan to help relieve anxiety. Per nursing report, the patient appeared to calm down after receiving the ativan, he was no longer tachypneic. It was confirmed that the family did NOT attempt to feed the patient. Additionally, the patient has been tolerating his enteral feeding with little to no residuals. I do not believe that he aspirated his enteral feeding. It is very likely that the patient aspirated on his own secretions. Per nursing report, the family was at the bedside for this incident. They are aware that the patient's transfer to a SNF was put on hold. Reason For Visit: CEREBROVASCULAR ACCIDENT (CVA) Physical Exam Vital Signs: Temp Pulse Resp BP Pulse Ox 97.8 F 140 H 24 H 105/76 95 06/09/17 03:41 06/09/17 04:01 06/09/17 04:01 06/09/17 03:41 06/09/17 04:01 Intake & Output 06/08/17 06/09/17 06/10/17 06:59 06:59 06:59 Intake Total 2405 1970 Balance 2405 1970 Weight 77.8 kg 77.4 kg General appearance: PRESENT: severe distress Eye exam: PRESENT: conjunctiva pink Mouth exam: PRESENT: moist, other - DROOLING Teeth exam: PRESENT: poor dentation Respiratory exam: PRESENT: wheezes Cardiovascular exam: PRESENT: +S1, +S2 Pulses: PRESENT: normal radial pulses, +1 pedal pulses bilateral Vascular exam: PRESENT: normal capillary refill GI/Abdominal exam: PRESENT: normal bowel sounds Rectal exam: PRESENT: deferred Extremities exam: PRESENT: +1 edema Musculoskeletal exam: PRESENT: other - ONLY WITHRAW FROM PAIN IN ALL 4 EXTREMITIES. NO MOVEMENT TO COMMAND Neurological exam: PRESENT: other - OBTUNDED Skin exam: PRESENT: dry, intact, normal color Results Laboratory Results: 06/09/17 04:23 06/07/17 05:13 06/09/17 04:23 WBC 7.0 RBC 5.42 Hgb 15.0 Hct 45.4 MCV 84 MCH 27.7 MCHC 33.0 RDW 14.5 H Plt Count 226 05/30/17 05/30/17 05/30/17 17:17 17:17 22:00 Creatine Kinase 192 H 614 H CK-MB (CK-2) 1.75 Troponin I 0.039 NT-Pro-B Natriuret Pep 05/30/17 05/31/17 05/31/17 22:00 03:10 03:10 Creatine Kinase 603 H CK-MB (CK-2) 2.26 1.74 Troponin I 0.040 0.035 NT-Pro-B Natriuret Pep 896 06/01/17 06/02/17 06/03/17 06:46 04:42 05:14 Creatine Kinase 937 H 620 H 350 H CK-MB (CK-2) Troponin I NT-Pro-B Natriuret Pep 06/03/17 06/05/17 17:00 05:19 Creatine Kinase 142 CK-MB (CK-2) Troponin I 0.021 NT-Pro-B Natriuret Pep 669 Impressions: Head MRI 05/30/17 00:00 IMPRESSION: Acute infarct external capsule basal ganglia on the right. Chronic left MCA distribution infarct. Atrophy and microvascular ischemia. EVIDENCE OF ACUTE STROKE: Yes RIGHT MCA Head CT 05/30/17 10:16 IMPRESSION: No acute findings-no intracranial hemorrhage. Old left hemispheric infarct. EVIDENCE OF ACUTE STROKE: NO. Head CTA 05/30/17 10:33 IMPRESSION: NO CTA EVIDENCE OF STENOSIS OR ANEURYSM OF THE [place]. Neck CTA 05/30/17 10:33 IMPRESSION: No evidence of dissection or significant stenosis. KUB X-Ray 06/01/17 10:47 IMPRESSION: NG tube with its tip at the level of the proximal stomach in the left upper quadrant. Other findings as noted above Chest X-Ray 06/08/17 17:30 IMPRESSION: NO ACUTE RADIOGRAPHIC FINDING IN THE CHEST. Status: Imported from PACS Assessment & Plan - Diagnosis (1) Aspiration into lower respiratory tract Qualifiers: Encounter type: initial encounter Qualified Code(s): T17.800A - Unspecified foreign body in other parts of respiratory tract causing asphyxiation, initial encounter Is this a current diagnosis for this admission?: Yes Plan: Acute respiratory distress secondary to aspiration as evidence by tachypnea, increased work of breathing, and possible aspiration in RLL on xray. The patient was seen this morning on rounds. His breathing appears labored, tachypneic with a respiratory rate of 40, wheezing in all lung vasques. Additionally, the patient is drooling and unable to manage his secretions. Respiratory was called to the bedside to administer a Duoneb treatment. Additionally, low dose scheduled Klonopin and low dose PRN ativan were added to the patient's medication regime to aid with his anxiety. Despite the patient's decomposition, the sister (medical POA) only wants to keep the patient comfortable. She is not interested in heroic measures, but she is amendable to nebulizer treatments and steroids. Will continue to manage the patient's respiratory status within the constraints of the patient's resuscitation status. (2) Acute CVA (cerebrovascular accident) Is this a current diagnosis for this admission?: Yes Plan: MCA CVA with cerebral infarction. MRI of the head reveals an acute infarct of the external capsule basal ganglia. Chronic left MCA distribution infarct. Atrophy and mocrovascular ischemia. CTA head: no stenosis or aneurysm at [place]. CTA neck: no stenosis of carotids. Echocardiogram demonstrates LVEF 45%, no evidence of thrombus. Dysphagia, aphasia, L hemiparesis, neglect are all persistent - unlikely to improve. The patient's mental status is worse today, he does not open his eyes to command, only to stimuli. Additionally, the patient does not move his upper extremities to command, only to painful stimuli. The lower extremity exam is unchanged. PERRLA. Patient was chronically anticoagulated on Xarelto as an outpatient, which has been resumed. In light of the patient's decompensation, the patient's sister (medical POA) states that she just wants to keep the patient comfortable. She is not interested in aggressive treatment, but is amendable to breathing treatments and steroids. At this time, it appears that the patient will not be transferred to a SNF. His respiratory status is too tenuous, and the SNF will not accept new admissions over the weekend. (3) Dysphasia Is this a current diagnosis for this admission?: Yes Plan: Secondary to acute R MCA CVA. Status post PEG placement. Started on enteral feeding, following recommendations of registered dietitian. Patient seems to be tolerating, little to no residuals. Aspiration precautions. Monitoring Accu- Cheks every 6 hours with sliding scale insulin as needed. (4) Expressive aphasia Is this a current diagnosis for this admission?: Yes Plan: Severe expressive aphasia secondary to CVA, patient is entirely nonverbal. Failed multiple swallow evaluations, PEG was placed 06/05. Normally, the patient would make attempts to answer questions. Today, the patient's eyes are closed, he is not answering questions or following commands. He is only arousable to painful stimuli. (5) Diastolic congestive heart failure Qualifiers: Heart failure chronicity: chronic Qualified Code(s): I50.32 - Chronic diastolic (congestive) heart failure Is this a current diagnosis for this admission?: Yes Plan: Echocardiogram demonstrates left ventricular ejection fraction 45%. Monitor strict I/O. Avoid excessive use of IVF for risk of volume overload. (6) Schizoaffective disorder Qualifiers: Schizoaffective disorder type: unspecified Qualified Code(s): F25.9 - Schizoaffective disorder, unspecified Is this a current diagnosis for this admission?: Yes Plan: Patient has underlying schizoaffective disorder, maintained on Zyprexa. Now that PEG is in place, patient is on home dose of Zyprexa. (7) Coronary artery disease Qualifiers: Coronary Disease-Associated Artery/Lesion type: unspecified vessel or lesion type [place] vs. transplanted heart: unspecified whether [place] or transplanted heart Associated angina: without angina Qualified Code(s): I25.10 - Atherosclerotic heart disease of [place] coronary artery without angina pectoris Is this a current diagnosis for this admission?: Yes Plan: History of CT. Continue aspirin therapy. (8) Anxiety Is this a current diagnosis for this admission?: Yes Plan: The patient was very anxious this morning as evidence by his tachypnea and obvious work of breathing. The patient was placed on low dose Ativan IV and low dose Klonopin PO to manage his anxiety. - Time Time Spent with patient: 25-34 minutes Medications reviewed and adjusted accordingly: Yes Anticipated discharge: SNF Within: within 72 hours - Inpatient Certification Based on my medical assessment, after consideration of the patient's comorbidities, presenting symptoms, or acuity I expect that the services needed warrant INPATIENT care.: Yes I certify that my determination is in accordance with my understanding of Medicare's requirements for reasonable and necessary INPATIENT services [42 CFR 412.3e].: Yes Medical Necessity: Risk of Complication if Not Cared For in Hospital - Plan Summary Plan Summary: Ultimately, plan to discharge to [facility]
[2017-06-09] MEDS: INSULIN LISPRO 100 UNIT/ML 3 ML VIAL SUBCUT PRN (18:21)
[2017-06-09] MEDS: ATORVASTATIN CALCIUM 80 MG TABLET PO SCH (21:33)
[2017-06-09] MEDS: OLANZAPINE 5 MG TABLET PEG SCH (21:33)
[2017-06-09] MEDS: METHYLPREDNISOLONE INJ 40 MG/1 ML SDV IV SCH (21:34)
[2017-06-10] MEDS: METOPROLOL TARTRATE PF/INJ 5 MG/5 ML SDV IV SCH ×4 (00:18→18:05)
[2017-06-10] MEDS: METHYLPREDNISOLONE INJ 40 MG/1 ML SDV IV SCH ×3 (06:21→21:37)
[2017-06-10] MEDS: INSULIN LISPRO 100 UNIT/ML 3 ML VIAL SUBCUT PRN (06:34)
[2017-06-10] MEDS: IPRATROPIUM/ALBUTEROL 0.5-2.5 MG/3 ML AMPUL NEB PRN (06:34)
[2017-06-10] MEDS: IPRATROPIUM/ALBUTEROL 0.5-2.5 MG/3 ML AMPUL NEB SCH ×3 (08:23→19:57)
[2017-06-10] MEDS: ASPIRIN 300 MG SUPP, RECTAL PR SCH (09:39)
[2017-06-10] MEDS: RIVAROXABAN 15 MG TABLET PO SCH (09:39)
[2017-06-10] MEDS: FAMOTIDINE INJ/PF 20 MG/2 ML SDV IV SCH ×2 (09:39→21:37)
--- NOTE | 2017-06-10 11:15 | PDOC PROGRESS REPORT ---
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 He was admitted on with a right sided MCA CVA resulting in left-sided hemiparesis, persistent neglect, dysphagia, aphasia. The patient also has a PMH of congestive heart failure, [place], hypertension, COPD, schizoaffective disorder. The patient was supposed to have been transferred to a SNF 06/08. Just prior to leaving, nursing staff noted that the patient appeared short of breath, tachypneic, and was using accessory muscles to breath. Transfer was put on hold for suspected aspiration. Patient seen on morning rounds. He eyes are closed, he does not open them when stimulated, PERRLA, withdraw to pain in all 4 extremities. He does not appear to be in any respiratory distress this morning, equal chest rise & fall, lungs clear to auscultation, requiring supplemental O2 to maintain SpO2>92%. Per nursing staff, the patient is requiring frequent suctioning because he cannot clear his secretions. Will keep him on the scopolamine patch and add glycopyrolate (Robinol) today. Reason For Visit: CEREBROVASCULAR ACCIDENT (CVA) Physical Exam Vital Signs: Temp Pulse Resp BP Pulse Ox 97.7 F 91 18 109/63 96 06/10/17 07:20 06/10/17 07:20 06/10/17 07:20 06/10/17 07:20 06/10/17 07:20 Intake & Output 06/09/17 06/10/17 06/11/17 06:59 06:59 06:59 Intake Total 1969 1623 Balance 1969 1623 Weight 77.4 kg 78.3 kg General appearance: PRESENT: no acute distress Head exam: PRESENT: atraumatic Eye exam: PRESENT: conjunctiva pink, PERRLA Mouth exam: PRESENT: moist Teeth exam: PRESENT: poor dentation Respiratory exam: PRESENT: clear to auscultation eric Cardiovascular exam: PRESENT: +S1, +S2 Pulses: PRESENT: normal radial pulses, +1 pedal pulses bilateral GI/Abdominal exam: PRESENT: normal bowel sounds, soft Rectal exam: PRESENT: deferred Musculoskeletal exam: PRESENT: other - Does not follow commands, only w/d to pain Neurological exam: PRESENT: alert, awake, oriented to person, oriented to place , oriented to time, oriented to situation Psychiatric exam: PRESENT: appropriate affect Skin exam: PRESENT: intact, normal color Results Laboratory Results: 06/09/17 07:33 06/09/17 07:33 05/30/17 05/30/17 05/30/17 17:17 17:17 22:00 Creatine Kinase 192 H 614 H CK-MB (CK-2) 1.75 Troponin I 0.039 NT-Pro-B Natriuret Pep 05/30/17 05/31/17 05/31/17 22:00 03:10 03:10 Creatine Kinase 603 H CK-MB (CK-2) 2.26 1.74 Troponin I 0.040 0.035 NT-Pro-B Natriuret Pep 896 06/01/17 06/02/17 06/03/17 06:46 04:42 05:14 Creatine Kinase 937 H 620 H 350 H CK-MB (CK-2) Troponin I NT-Pro-B Natriuret Pep 06/03/17 06/05/17 17:00 05:19 Creatine Kinase 142 CK-MB (CK-2) Troponin I 0.021 NT-Pro-B Natriuret Pep 669 Impressions: Head MRI 05/30/17 00:00 IMPRESSION: Acute infarct external capsule basal ganglia on the right. Chronic left MCA distribution infarct. Atrophy and microvascular ischemia. EVIDENCE OF ACUTE STROKE: Yes RIGHT MCA Head CT 05/30/17 10:16 IMPRESSION: No acute findings-no intracranial hemorrhage. Old left hemispheric infarct. EVIDENCE OF ACUTE STROKE: NO. Head CTA 05/30/17 10:33 IMPRESSION: NO CTA EVIDENCE OF STENOSIS OR ANEURYSM OF THE [place]. Neck CTA 05/30/17 10:33 IMPRESSION: No evidence of dissection or significant stenosis. KUB X-Ray 06/01/17 10:47 IMPRESSION: NG tube with its tip at the level of the proximal stomach in the left upper quadrant. Other findings as noted above Status: Imported from PACS Assessment & Plan - Diagnosis (1) Aspiration into lower respiratory tract Qualifiers: Encounter type: initial encounter Qualified Code(s): T17.800A - Unspecified foreign body in other parts of respiratory tract causing asphyxiation, initial encounter Is this a current diagnosis for this admission?: Yes Plan: Acute respiratory distress secondary to aspiration as evidence by tachypnea, increased work of breathing, and possible aspiration in RLL on xray. The patient was seen this morning on rounds. His breathing does not appear labored, his lungs are clear to auscultation. The patient is not drooling today, likely as a result of starting scopolomine yesterday. Nursing staff reports that the patient is requiring frequent suctioning, approximately every time he coughs. Will start PRN glycopyrolate (Robinul) in an attempt to dry up secretions Despite the patient's decomposition, the sister (medical POA) only wants to keep the patient comfortable. She is not interested in heroic measures, but she is amendable to nebulizer treatments and steroids. Will continue to manage the patient's respiratory status within the constraints of the patient's resuscitation status. (2) Acute CVA (cerebrovascular accident) Is this a current diagnosis for this admission?: Yes Plan: MCA CVA with cerebral infarction. MRI of the head reveals an acute infarct of the external capsule basal ganglia. Chronic left MCA distribution infarct. Atrophy and mocrovascular ischemia. CTA head: no stenosis or aneurysm at [place]. CTA neck: no stenosis of carotids. Echocardiogram demonstrates LVEF 45%, no evidence of thrombus. Dysphagia, aphasia, L hemiparesis, neglect are all persistent - unlikely to improve. The patient's mental status is unchanged from yesterday, he does not open his eyes to command, only to stimuli. Additionally, the patient does not move his upper extremities to command, only to painful stimuli. The lower extremity exam is unchanged. PERRLA. Patient was chronically anticoagulated on Xarelto as an outpatient, which has been resumed. In light of the patient's decompensation, the patient's sister (medical POA) states that she just wants to keep the patient comfortable. At this time, it appears that the patient will not be transferred to a SNF. His respiratory status is too tenuous, requiring frequent suctioning, and the SNF will not accept new admissions over the weekend. (3) Dysphasia Is this a current diagnosis for this admission?: Yes Plan: Secondary to acute R MCA CVA. Status post PEG placement. Started on enteral feeding, following recommendations of registered dietitian. Patient seems to be tolerating, little to no residuals. Aspiration precautions. Monitoring Accu- Cheks every 6 hours with sliding scale insulin as needed. (4) Expressive aphasia Is this a current diagnosis for this admission?: Yes Plan: Severe expressive aphasia secondary to CVA, patient is entirely nonverbal. Failed multiple swallow evaluations, PEG was placed 06/05. Normally, the patient would make attempts to answer questions. Today, the patient's eyes are closed, he is not answering questions or following commands. He is only arousable to painful stimuli. (5) Diastolic congestive heart failure Qualifiers: Heart failure chronicity: chronic Qualified Code(s): I50.32 - Chronic diastolic (congestive) heart failure Is this a current diagnosis for this admission?: Yes Plan: Echocardiogram demonstrates left ventricular ejection fraction 45%. Monitor strict I/O. No maintenance IVF for risk of volume overload. (6) Schizoaffective disorder Qualifiers: Schizoaffective disorder type: unspecified Qualified Code(s): F25.9 - Schizoaffective disorder, unspecified Is this a current diagnosis for this admission?: Yes Plan: Patient has underlying schizoaffective disorder, maintained on Zyprexa. Now that PEG is in place, patient is on home dose of Zyprexa. (7) Coronary artery disease Qualifiers: Coronary Disease-Associated Artery/Lesion type: unspecified vessel or lesion type [place] vs. transplanted heart: unspecified whether [place] or transplanted heart Associated angina: without angina Qualified Code(s): I25.10 - Atherosclerotic heart disease of [place] coronary artery without angina pectoris Is this a current diagnosis for this admission?: Yes Plan: History of [place]. Continue aspirin therapy. (8) Anxiety Is this a current diagnosis for this admission?: Yes Plan: The patient is not exhibiting signs of anxiety this morning but he has a history of becoming very anxious when tachypnic and obvious work of breathing. The patient was placed on low dose Ativan IV PRN and low dose Klonopin PO PRN to manage his anxiety. - Time Time Spent with patient: 15-24 minutes Medications reviewed and adjusted accordingly: Yes Anticipated discharge: SNF Within: within 48 hours - Inpatient Certification Based on my medical assessment, after consideration of the patient's comorbidities, presenting symptoms, or acuity I expect that the services needed warrant INPATIENT care.: Yes I certify that my determination is in accordance with my understanding of Medicare's requirements for reasonable and necessary INPATIENT services [42 CFR 412.3e].: Yes Medical Necessity: Risk of Complication if Not Cared For in Hospital - Plan Summary Plan Summary: Once the patient stabilizes, we will transfer the patient to [facility]
[2017-06-10] MEDS: GLYCOPYRROLATE INJ 0.4 MG/2 ML VIAL IV SCH ×2 (12:11→18:05)
--- NOTE | 2017-06-10 14:30 | RADIOLOGY REPORT (SQ) ---
EXAM DESCRIPTION: CHEST SINGLE VIEW COMPLETED DATE/TIME: 06/10/2017 8:19 am REASON FOR STUDY: r/o aspiration COMPARISON: Chest films 05/30/2017, 05/31/2017, 06/02/2017, 06/08/2017 EXAM PARAMETERS: NUMBER OF VIEWS: One view. TECHNIQUE: Single frontal radiographic view of the chest acquired. RADIATION DOSE: NA LIMITATIONS: None. FINDINGS: LUNGS AND PLEURA: No opacities, masses or pneumothorax. No pleural effusion. MEDIASTINUM AND HILAR STRUCTURES: No masses. Contour normal. HEART AND VASCULAR STRUCTURES: Heart normal in size. Normal vasculature. BONES: No acute findings. HARDWARE: None in the chest. OTHER: No other significant finding. IMPRESSION: NO ACUTE RADIOGRAPHIC FINDING IN THE CHEST. TECHNICAL DOCUMENTATION: JOB ID: [id number] [employer]- All Rights Reserved Reading location - IP/workstation name: [email or web address]
[2017-06-10] MEDS: ATORVASTATIN CALCIUM 80 MG TABLET PO SCH (21:36)
[2017-06-10] MEDS: OLANZAPINE 5 MG TABLET PEG SCH (21:37)
[2017-06-11] MEDS: GLYCOPYRROLATE INJ 0.4 MG/2 ML VIAL IV SCH ×4 (00:51→17:18)
[2017-06-11] MEDS: METOPROLOL TARTRATE PF/INJ 5 MG/5 ML SDV IV SCH ×4 (00:51→17:18)
[2017-06-11 04:47] LABS: APPEARANCE,URINE SLIGHTLY HAZY; BILIRUBIN,URINE NEGATIVE (NEGATIVE); COLOR,URINE YELLOW; GLUCOSE, URINE NEGATIVE (NEGATIVE); KETONES,URINE NEGATIVE (NEGATIVE); LEUKOCYTE ESTERASE,URINE MODERATE (NEGATIVE); NITRITE,URINE NEGATIVE (NEGATIVE); PROTEIN,URINE NEGATIVE (NEGATIVE); URINE SPECIFIC GRAVITY 1.025; UROBILINOGEN,URINE NEGATIVE mg/dL (<2.0)
[2017-06-11] MEDS: METHYLPREDNISOLONE INJ 40 MG/1 ML SDV IV SCH ×3 (05:40→22:47)
[2017-06-11] MEDS: IPRATROPIUM/ALBUTEROL 0.5-2.5 MG/3 ML AMPUL NEB SCH ×3 (08:05→19:53)
[2017-06-11] MEDS: ASPIRIN 300 MG SUPP, RECTAL PR SCH (10:23)
[2017-06-11] MEDS: FAMOTIDINE INJ/PF 20 MG/2 ML SDV IV SCH ×2 (10:23→22:46)
[2017-06-11] MEDS: RIVAROXABAN 15 MG TABLET PO SCH (10:23)
--- NOTE | 2017-06-11 14:17 | PDOC PROGRESS REPORT ---
Subjective Progress Note for:: 06/11/17 Subjective:: DALY PORTILLO is a 71-year-old male with a past medical history of CVA in 2016 that resulted in mild right-sided hemiparesis. He was admitted on with a right sided MCA CVA resulting in left-sided hemiparesis, persistent neglect, dysphagia, aphasia. The patient also has a PMH of congestive heart failure, MS, hypertension, COPD, schizoaffective disorder. The patient was supposed to have been transferred to a SNF 06/08. Just prior to leaving, nursing staff noted that the patient appeared short of breath, tachypneic, and was using accessory muscles to breath. Transfer was put on hold for suspected aspiration. Patient seen on morning rounds. He opens his eyes to command, PERRLA, is able to shake his head yes/no appropriately to answer questions, additionally he has some fine motor movement in his right hand and is able to move his right foot to command. The patient's condition has greatly improved this morning, he is much more awake and interactive. His respiratory status has greatly improved, equal chest rise & fall, lungs clear to auscultation, requiring supplemental O2 to maintain SpO2>92%. The patient no longer requires frequent suctioning, he now only has a dry cough. Reason For Visit: CEREBROVASCULAR ACCIDENT (CVA) Physical Exam Vital Signs: Temp Pulse Resp BP Pulse Ox 97.8 F 85 20 127/72 H 98 06/11/17 12:23 06/11/17 12:23 06/11/17 12:23 06/11/17 12:23 06/11/17 12:23 Intake & Output 06/10/17 06/11/17 06/12/17 06:59 06:59 06:59 Intake Total 1623 1322 0 Output Total 500 375 Balance 1623 822 -375 Weight 78.3 kg 78.2 kg General appearance: PRESENT: no acute distress Head exam: PRESENT: atraumatic Eye exam: PRESENT: conjunctiva pink Mouth exam: PRESENT: moist Teeth exam: PRESENT: poor dentation Respiratory exam: PRESENT: clear to auscultation eric Cardiovascular exam: PRESENT: +S1, +S2 Pulses: PRESENT: normal radial pulses, +1 pedal pulses bilateral Vascular exam: PRESENT: normal capillary refill GI/Abdominal exam: PRESENT: normal bowel sounds, soft Rectal exam: PRESENT: deferred Extremities exam: PRESENT: other - No gross motor movement in any extremity. Minimal fine motor movement in right hand. Patient is able to move his right foot and all 5 toes to command. Withdraw from pain with left upper extremity and left lower extremity Neurological exam: PRESENT: alert, awake, aphasic Results Laboratory Results: 06/09/17 07:33 06/09/17 07:33 06/11/17 02:40 Urine Color YELLOW Urine Appearance SLIGHTLY HAZY Urine pH 5.0 Ur Specific [place] 1.025 Urine Protein NEGATIVE Urine Glucose (UA) NEGATIVE Urine Ketones NEGATIVE Urine Blood NEGATIVE Urine Nitrite NEGATIVE Ur Leukocyte Esterase MODERATE H Urine WBC (Auto) 62 Urine RBC (Auto) 1 05/30/17 05/30/17 05/30/17 17:17 17:17 22:00 Creatine Kinase 192 H 614 H CK-MB (CK-2) 1.75 Troponin I 0.039 NT-Pro-B Natriuret Pep 05/30/17 05/31/17 05/31/17 22:00 03:10 03:10 Creatine Kinase 603 H CK-MB (CK-2) 2.26 1.74 Troponin I 0.040 0.035 NT-Pro-B Natriuret Pep 896 06/01/17 06/02/17 06/03/17 06:46 04:42 05:14 Creatine Kinase 937 H 620 H 350 H CK-MB (CK-2) Troponin I NT-Pro-B Natriuret Pep 06/03/17 06/05/17 17:00 05:19 Creatine Kinase 142 CK-MB (CK-2) Troponin I 0.021 NT-Pro-B Natriuret Pep 669 Impressions: Head MRI 05/30/17 00:00 IMPRESSION: Acute infarct external capsule basal ganglia on the right. Chronic left MCA distribution infarct. Atrophy and microvascular ischemia. EVIDENCE OF ACUTE STROKE: Yes RIGHT MCA Head CT 05/30/17 10:16 IMPRESSION: No acute findings-no intracranial hemorrhage. Old left hemispheric infarct. EVIDENCE OF ACUTE STROKE: NO. Head CTA 05/30/17 10:33 IMPRESSION: NO CTA EVIDENCE OF STENOSIS OR ANEURYSM OF THE [place]. Neck CTA 05/30/17 10:33 IMPRESSION: No evidence of dissection or significant stenosis. KUB X-Ray 06/01/17 10:47 IMPRESSION: NG tube with its tip at the level of the proximal stomach in the left upper quadrant. Other findings as noted above Chest X-Ray 06/10/17 05:00 IMPRESSION: NO ACUTE RADIOGRAPHIC FINDING IN THE CHEST. Assessment & Plan - Diagnosis (1) Aspiration into lower respiratory tract Qualifiers: Encounter type: initial encounter Qualified Code(s): T17.800A - Unspecified foreign body in other parts of respiratory tract causing asphyxiation, initial encounter Is this a current diagnosis for this admission?: Yes Plan: Resolved. On Monday, JUN 09 the patient was exhibiting symptoms of acute respiratory distress secondary to aspiration as evidence by tachypnea, increased work of breathing, and possible aspiration in RLL on xr. The patient was seen this morning on rounds. His breathing does not appear labored, his lungs are clear to auscultation. The patient is not drooling today, likely as a result of starting scopolomine AND ROBINUL. At this time, the patient's respiratory status has greatly improved over the course of the weekend. It is my assessment that he is safe to be transferred to a shelter facility for long-term care. (2) Acute CVA (cerebrovascular accident) Is this a current diagnosis for this admission?: Yes Plan: MCA CVA with cerebral infarction. MRI of the head reveals an acute infarct of the external capsule basal ganglia. Chronic left MCA distribution infarct. Atrophy and mocrovascular ischemia. CTA head: no stenosis or aneurysm at [place]. CTA neck: no stenosis of carotids. Echocardiogram demonstrates LVEF 45%, no evidence of thrombus. Dysphagia, aphasia, L hemiparesis, neglect are all persistent - unlikely to improve. The patient opens his eyes to voice. He has minimal fine motor movement in the right hand. He is able to move his right foot and all 5 toes to command. Left upper and lower extremity -only withdraw to pain. PERRLA. Patient was chronically anticoagulated on Xarelto as an outpatient, which has been resumed. At this time, the patient's medical condition has really improved over the course of the weekend. It is my assessment that he is able to be transferred to a shelter facility tomorrow. (3) Dysphasia Is this a current diagnosis for this admission?: Yes Plan: Secondary to acute R MCA CVA. Status post PEG placement. Started on enteral feeding, following recommendations of registered dietitian. Patient seems to be tolerating, little to no residuals. Aspiration precautions. Monitoring Accu- Cheks every 6 hours with sliding scale insulin as needed. (4) Expressive aphasia Is this a current diagnosis for this admission?: Yes Plan: Severe expressive aphasia secondary to CVA, patient is entirely nonverbal. Failed multiple swallow evaluations, PEG was placed 06/05. The patient is arousable to voice. He is able to shake his head yes/no to appropriately answer questions (5) Diastolic congestive heart failure Qualifiers: Heart failure chronicity: chronic Qualified Code(s): I50.32 - Chronic diastolic (congestive) heart failure Is this a current diagnosis for this admission?: Yes Plan: Echocardiogram demonstrates left ventricular ejection fraction 45%. Monitor strict I/O. No maintenance IVF for risk of volume overload. (6) Schizoaffective disorder Qualifiers: Schizoaffective disorder type: unspecified Qualified Code(s): F25.9 - Schizoaffective disorder, unspecified Is this a current diagnosis for this admission?: Yes Plan: Patient has underlying schizoaffective disorder, maintained on Zyprexa. Now that PEG is in place, patient is on home dose of Zyprexa. (7) Coronary artery disease Qualifiers: Coronary Disease-Associated Artery/Lesion type: unspecified vessel or lesion type [place] vs. transplanted heart: unspecified whether [place] or transplanted heart Associated angina: without angina Qualified Code(s): I25.10 - Atherosclerotic heart disease of [place] coronary artery without angina pectoris Is this a current diagnosis for this admission?: Yes Plan: History of MS. Continue aspirin therapy. (8) Anxiety Is this a current diagnosis for this admission?: Yes Plan: The patient is not exhibiting signs of anxiety this morning but he has a history of becoming very anxious when tachypnic and obvious work of breathing. The patient was placed on low dose Ativan IV PRN and low dose Klonopin PO PRN to manage his anxiety. - Time Time Spent with patient: 15-24 minutes Medications reviewed and adjusted accordingly: Yes Anticipated discharge: Home Within: within 48 hours - Inpatient Certification Based on my medical assessment, after consideration of the patient's comorbidities, presenting symptoms, or acuity I expect that the services needed warrant INPATIENT care.: Yes I certify that my determination is in accordance with my understanding of Medicare's requirements for reasonable and necessary INPATIENT services [42 CFR 412.3e].: Yes Medical Necessity: Risk of Complication if Not Cared For in Hospital - Plan Summary Plan Summary: Discharge to shelter facility
[2017-06-11] MEDS: OLANZAPINE 5 MG TABLET PEG SCH (22:47)
[2017-06-11] MEDS: ATORVASTATIN CALCIUM 80 MG TABLET PO SCH (22:47)
[2017-06-11] MEDS ORDERED: NA PHOS,M-B/NA PHOS,DI-BA (ADULT) 133 ML ENEMA PR ONE (23:00)
[2017-06-11] MEDS ORDERED: BISACODYL 10 MG SUPP.RECT PR ONE (23:00)
[2017-06-12] MEDS: METOPROLOL TARTRATE PF/INJ 5 MG/5 ML SDV IV SCH ×4 (00:47→18:49)
[2017-06-12] MEDS: GLYCOPYRROLATE INJ 0.4 MG/2 ML VIAL IV SCH ×3 (00:52→12:08)
[2017-06-12] MEDS: METHYLPREDNISOLONE INJ 40 MG/1 ML SDV IV SCH ×3 (06:43→22:57)
[2017-06-12] MEDS: IPRATROPIUM/ALBUTEROL 0.5-2.5 MG/3 ML AMPUL NEB SCH ×2 (08:16→13:43)
[2017-06-12] MEDS ORDERED: BISACODYL 10 MG SUPP.RECT PR PRN (09:47)
[2017-06-12] MEDS ORDERED: FAMOTIDINE INJ/PF 20 MG/2 ML SDV IV ONE (10:14)
[2017-06-12] MEDS: FAMOTIDINE INJ/PF 20 MG/2 ML SDV IV SCH ×2 (10:17→22:57)
[2017-06-12] MEDS: ASPIRIN 300 MG SUPP, RECTAL PR SCH (10:18)
[2017-06-12] MEDS: RIVAROXABAN 15 MG TABLET PO SCH (10:22)
[2017-06-12] MEDS ORDERED: MAGNESIUM HYDROXIDE SUSP 30 ML UDCUP PO ONE (10:45)
[2017-06-12] MEDS: BISACODYL 10 MG SUPP.RECT PR SCH (11:11)
[2017-06-12] MEDS ORDERED: CLONAZEPAM 1 MG TABLET PEG PRN (12:09)
--- NOTE | 2017-06-12 13:23 | PDOC PROGRESS REPORT ---
Subjective Progress Note for:: 06/12/17 Subjective:: DALY PORTILLO IS A 71 YEAR OLD MALE with past medical history of CVA in 2016 that resulted in mild right-sided hemiparesis. He was admitted on 05/30 with a right-sided MCA CVA resulting in left-sided hemiparesis, persistent neglect, dysphagia, a fascia. The patient also has a PMH of congestive heart failure, ID , hypertension, COPD, schizoaffective disorder. The patient was supposed to have been transferred to a SNF 06/08. Just prior to leaving, nursing staff noted that the patient appears short of breath, tachypnea , and was using accessory muscles to breathe. Transfer was put on hold for suspected aspiration. Patient seen on morning rounds. His eyes are open, he can shake his head yes/ no in order to answer questions appropriately, PERRLA, spontaneous movement in the right upper extremity and right foot, gross motor movement of the left upper extremity, left lower extremity withdraw to pain. Abdomen appears slightly distended. Positive bowel sounds. Nursing staff reports that the patient has not had a bowel movement in approximately 3 days and the residuals from his PEG tube have consistently been high (100-295). Reason For Visit: CEREBROVASCULAR ACCIDENT (CVA) Physical Exam Vital Signs: Temp Pulse Resp BP Pulse Ox 97.6 F 66 20 124/76 100 06/12/17 11:33 06/12/17 11:33 06/12/17 11:33 06/12/17 11:33 06/12/17 11:33 Intake & Output 06/11/17 06/12/17 06/13/17 06:59 06:59 06:59 Intake Total 1322 1024 30 Output Total 500 1275 300 Balance 822 251 270 Weight 78.2 kg 76.3 kg Results Laboratory Results: 06/09/17 07:33 06/09/17 07:33 05/30/17 05/30/17 05/30/17 17:17 17:17 22:00 Creatine Kinase 192 H 614 H CK-MB (CK-2) 1.75 Troponin I 0.039 NT-Pro-B Natriuret Pep 05/30/17 05/31/17 05/31/17 22:00 03:10 03:10 Creatine Kinase 603 H CK-MB (CK-2) 2.26 1.74 Troponin I 0.040 0.035 NT-Pro-B Natriuret Pep 896 06/01/17 06/02/17 06/03/17 06:46 04:42 05:14 Creatine Kinase 937 H 620 H 350 H CK-MB (CK-2) Troponin I NT-Pro-B Natriuret Pep 06/03/17 06/05/17 17:00 05:19 Creatine Kinase 142 CK-MB (CK-2) Troponin I 0.021 NT-Pro-B Natriuret Pep 669 Impressions: Head MRI 05/30/17 00:00 IMPRESSION: Acute infarct external capsule basal ganglia on the right. Chronic left MCA distribution infarct. Atrophy and microvascular ischemia. EVIDENCE OF ACUTE STROKE: Yes RIGHT MCA Head CT 05/30/17 10:16 IMPRESSION: No acute findings-no intracranial hemorrhage. Old left hemispheric infarct. EVIDENCE OF ACUTE STROKE: NO. Head CTA 05/30/17 10:33 IMPRESSION: NO CTA EVIDENCE OF STENOSIS OR ANEURYSM OF THE [place]. Neck CTA 05/30/17 10:33 IMPRESSION: No evidence of dissection or significant stenosis. KUB X-Ray 06/01/17 10:47 IMPRESSION: NG tube with its tip at the level of the proximal stomach in the left upper quadrant. Other findings as noted above Chest X-Ray 06/10/17 05:00 IMPRESSION: NO ACUTE RADIOGRAPHIC FINDING IN THE CHEST. Assessment & Plan - Diagnosis (1) Aspiration into lower respiratory tract Qualifiers: Encounter type: initial encounter Qualified Code(s): T17.800A - Unspecified foreign body in other parts of respiratory tract causing asphyxiation, initial encounter Is this a current diagnosis for this admission?: Yes Plan: Resolved. On Monday, JUN 09 the patient was exhibiting symptoms of acute respiratory distress secondary to aspiration as evidence by tachypnea, increased work of breathing, and possible aspiration in RLL on xray. The patient was seen this morning on rounds. His breathing does not appear labored, his lungs are clear to auscultation. Will discontinue scopolomine AND ROBINUL. At this time, the patient's respiratory status has greatly improved over the course of the weekend. It is my assessment that he is safe to be transferred to a snf facility for long-term care. (2) Acute CVA (cerebrovascular accident) Is this a current diagnosis for this admission?: Yes Plan: MCA CVA with cerebral infarction. MRI of the head reveals an acute infarct of the external capsule basal ganglia. Chronic left MCA distribution infarct. Atrophy and mocrovascular ischemia. CTA head: no stenosis or aneurysm at [place]. CTA neck: no stenosis of carotids. Echocardiogram demonstrates LVEF 45%, no evidence of thrombus. Dysphagia, aphasia, L hemiparesis, neglect are all persistent - unlikely to improve. Patient opens his eyes spontaneously. He has minimal fine motor movement in the right hand. He is able to move his right foot and all 5 toes to command. Gross motor movement with left upper extremity and withdraws to pain in the left lower extremity. PERRLA. Patient was chronically anticoagulated on Xarelto as an outpatient, which has been resumed. At this time, the patient's medical condition has really improved over the course of the weekend. It is my assessment that he is able to be transferred to a snf facility tomorrow. (3) Dysphasia Is this a current diagnosis for this admission?: Yes Plan: Secondary to acute R MCA CVA. Status post PEG placement. Continue enteral feeding following recommendations of registered dietitian. Aspiration precautions. Monitoring Accu-Cheks every 6 hours with sliding scale insulin as needed. (4) Expressive aphasia Is this a current diagnosis for this admission?: Yes Plan: Severe expressive aphasia secondary to CVA, patient is entirely nonverbal. Failed multiple swallow evaluations, PEG was placed 06/05. The patient is arousable to voice. He is able to shake his head yes/no to appropriately answer questions (5) Diastolic congestive heart failure Qualifiers: Heart failure chronicity: chronic Qualified Code(s): I50.32 - Chronic diastolic (congestive) heart failure Is this a current diagnosis for this admission?: Yes Plan: Echocardiogram demonstrates left ventricular ejection fraction 45%. Monitor strict I/O. No maintenance IVF for risk of volume overload. (6) Schizoaffective disorder Qualifiers: Schizoaffective disorder type: unspecified Qualified Code(s): F25.9 - Schizoaffective disorder, unspecified Is this a current diagnosis for this admission?: Yes Plan: Patient has underlying schizoaffective disorder, maintained on Zyprexa. Now that PEG is in place, patient is on home dose of Zyprexa. (7) Coronary artery disease Qualifiers: Coronary Disease-Associated Artery/Lesion type: unspecified vessel or lesion type [place] vs. transplanted heart: unspecified whether [place] or transplanted heart Associated angina: without angina Qualified Code(s): I25.10 - Atherosclerotic heart disease of [place] coronary artery without angina pectoris Is this a current diagnosis for this admission?: Yes Plan: History of ID. Continue aspirin therapy. (8) Anxiety Is this a current diagnosis for this admission?: Yes Plan: The patient is not exhibiting signs of anxiety this morning but he has a history of becoming very anxious when tachypnic and obvious work of breathing. The patient was placed on low dose Ativan IV PRN and low dose Klonopin PO PRN to manage his anxiety. (9) Constipation Qualifiers: Constipation type: slow transit constipation Qualified Code(s): K59.01 - Slow transit constipation Is this a current diagnosis for this admission?: Yes Plan: New constipation likely secondary to side effect of decreased motility from scopolomine, and possibly robinul. The patient has not had a bowel movement in 2 -3 days. Abdomen distended. PEG tube residuals have consistently been >100. Discontinue scopolamine and Robinul. Resume daily bisacodyl suppository, start docusate/Senna BID and one time order for milk of mag. - Time Time Spent with patient: 15-24 minutes Medications reviewed and adjusted accordingly: Yes Anticipated discharge: SNF Within: within 48 hours - Inpatient Certification Based on my medical assessment, after consideration of the patient's comorbidities, presenting symptoms, or acuity I expect that the services needed warrant INPATIENT care.: Yes I certify that my determination is in accordance with my understanding of Medicare's requirements for reasonable and necessary INPATIENT services [42 CFR 412.3e].: Yes Medical Necessity: Risk of Complication if Not Cared For in Hospital - Plan Summary Plan Summary: discharge to SNF
[2017-06-12] MEDS ORDERED: HYDRALAZINE HCL INJ/PF 20 MG/1 ML SDV IV PRN (14:00)
--- NOTE | 2017-06-12 17:28 | Progress Note ---
Provider Note Provider Note: Nurse reports the patient just had large bowel movement. Now that his GI motility has returned, the patient can be transferred to [facility]. Case management aware.
[2017-06-12] MEDS: DOCUSATE SODIUM 100 MG CAPSULE PO SCH (18:49)
[2017-06-12] MEDS: LORAZEPAM INJ 2 MG/1 ML VIAL IV PRN (21:09)
[2017-06-12] MEDS ORDERED: SCOPOLAMINE HYDROBROMIDE 1.5 MG PATCH.TD72 TD SCH (22:00)
[2017-06-12] MEDS: ATORVASTATIN CALCIUM 80 MG TABLET PEG SCH (22:57)
[2017-06-12] MEDS: OLANZAPINE 5 MG TABLET PEG SCH (22:57)
--- NOTE | 2017-06-12 23:51 | Progress Note ---
Provider Note Provider Note: Palliative Care folllow up visit. 06/12/17 11:55 AM Brief palliative care follow up visit with this 71 year old man who has history of CVA with aphasia, dysphagia and right sided weakness, who was admitted this time with new CVA affecting left side and again causing difficulty with swallowing. Mr. Jenkins looked very gravely ill when he first arrived, but did improve quickly, However, in spite of his improvement in mentation, he still had left sided paralysis and could not pass swallowing tests. So PEG tube was replaced ( patient had PEG after his first stroke temporarily. Apparently in the past few days, there has been concern over aspiration pneumonia with respiratory distress. Today he looks much better and responds that he is feeling better. He is resting in bed comfortably and is having no congestion or cough during my visit. He answered questions with yes/no nods and smiles, etc. He agreed he is ready to leave hospital. Breath sounds have scattered rhonchi noted R>L, Oxygen in place. Heart sounds regular, no edema. Abd soft and not distended. Chart reviewed, vital signs stable. Oxygen saturation has remained good with 2 liters oxygen per [place]. Patient has had to have de [place] santos placed due to urinary retention and PT has not been able to work with patient for several days due to decrease in mental status late last week for a time. Mr. Jenkins's sister and mother were not at the hospital today during my visit, but family member staying with patient reported that they are doing well. Plans have been made to transfer patient to [facility] for rehab. Will follow with patient and family in next few days for support.
[2017-06-13] MEDS: METOPROLOL TARTRATE PF/INJ 5 MG/5 ML SDV IV SCH ×2 (00:38→06:12)
[2017-06-13] MEDS: METHYLPREDNISOLONE INJ 40 MG/1 ML SDV IV SCH (06:12)
--- NOTE | 2017-06-13 10:47 | PDOC PROGRESS REPORT ---
Subjective Progress Note for:: 06/13/17 Subjective:: The patient is an unfortunate 71-year-old -[place] gentleman who presented to the emergency room with an acute CVA. He has had a prolonged hospitalization and ultimately has had a PEG tube placed as he has severe dysphag his PEG tube feedings ia and it is not felt safe to swallow. Were initially advanced and he developed large residuals and some constipation. His constipation is now improved and he has had multiple bowel movements. We are in the process of increasing his tube feedings to the goal rate. He is unable to speak but does seem to understand what I am saying. Nursing staff reports that she is concerned because he is still on multiple IV medications. Today when I saw the patient he is awake and alert. He cannot speak. Review of systems could not be obtained. Reason For Visit: CEREBROVASCULAR ACCIDENT (CVA) Physical Exam Vital Signs: Temp Pulse Resp BP Pulse Ox 97.6 F 74 18 129/71 H 100 06/13/17 07:29 06/13/17 07:29 06/13/17 07:29 06/13/17 07:29 06/13/17 07:29 Intake & Output 06/12/17 06/13/17 06/14/17 06:59 06:59 06:59 Intake Total 1024 741 Output Total 1275 1200 Balance -251 -459 Weight 76.3 kg 76.8 kg General appearance: PRESENT: no acute distress, well-developed, well-nourished Head exam: PRESENT: atraumatic, normocephalic Mouth exam: PRESENT: moist, tongue midline Respiratory exam: PRESENT: clear to auscultation eric, decreased breath sounds - He is diminished in the lower bases bilaterally. ABSENT: rales, rhonchi, wheezes Cardiovascular exam: PRESENT: RRR. ABSENT: diastolic murmur, rubs, systolic murmur GI/Abdominal exam: PRESENT: normal bowel sounds, soft. ABSENT: distended, guarding, mass, organolmegaly, rebound, tenderness Rectal exam: PRESENT: deferred Extremities exam: PRESENT: full ROM. ABSENT: calf tenderness, clubbing, pedal edema Musculoskeletal exam: ABSENT: ambulatory Neurological exam: PRESENT: aphasic, other - It is difficult to assess whether he is oriented. He seems to understand what I am saying. He has significant aphasia as well as dysphasia Psychiatric exam: PRESENT: appropriate affect, normal mood. ABSENT: homicidal ideation, suicidal ideation Skin exam: PRESENT: dry, intact, warm. ABSENT: cyanosis, rash Results Laboratory Results: 06/09/17 07:33 06/09/17 07:33 05/30/17 05/30/17 05/30/17 17:17 17:17 22:00 Creatine Kinase 192 H 614 H CK-MB (CK-2) 1.75 Troponin I 0.039 NT-Pro-B Natriuret Pep 05/30/17 05/31/17 05/31/17 22:00 03:10 03:10 Creatine Kinase 603 H CK-MB (CK-2) 2.26 1.74 Troponin I 0.040 0.035 NT-Pro-B Natriuret Pep 896 06/01/17 06/02/17 06/03/17 06:46 04:42 05:14 Creatine Kinase 937 H 620 H 350 H CK-MB (CK-2) Troponin I NT-Pro-B Natriuret Pep 06/03/17 06/05/17 17:00 05:19 Creatine Kinase 142 CK-MB (CK-2) Troponin I 0.021 NT-Pro-B Natriuret Pep 669 Impressions: Head MRI 05/30/17 00:00 IMPRESSION: Acute infarct external capsule basal ganglia on the right. Chronic left MCA distribution infarct. Atrophy and microvascular ischemia. EVIDENCE OF ACUTE STROKE: Yes RIGHT MCA Head CT 05/30/17 10:16 IMPRESSION: No acute findings-no intracranial hemorrhage. Old left hemispheric infarct. EVIDENCE OF ACUTE STROKE: NO. Head CTA 05/30/17 10:33 IMPRESSION: NO CTA EVIDENCE OF STENOSIS OR ANEURYSM OF THE [place]. Neck CTA 05/30/17 10:33 IMPRESSION: No evidence of dissection or significant stenosis. KUB X-Ray 06/01/17 10:47 IMPRESSION: NG tube with its tip at the level of the proximal stomach in the left upper quadrant. Other findings as noted above Chest X-Ray 06/10/17 05:00 IMPRESSION: NO ACUTE RADIOGRAPHIC FINDING IN THE CHEST. Assessment & Plan - Diagnosis (1) Acute CVA (cerebrovascular accident) Is this a current diagnosis for this admission?: Yes Plan: The patient had an acute CVA in an MCA distribution. He has significant dysphagia as well as aphasia. He has a PEG tube placed. (2) Aspiration into lower respiratory tract Qualifiers: Encounter type: initial encounter Qualified Code(s): T17.800A - Unspecified foreign body in other parts of respiratory tract causing asphyxiation, initial encounter Is this a current diagnosis for this admission?: Yes Plan: Fortunately no evidence of pneumonia. He was having high residuals from his tube feedings. This seems to have improved since he is now having bowel movements. We will watch him in the hospital for an additional day to be on the safe side. Fortunately no evidence of pneumonia. 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 (6) Schizophrenia Qualifiers: Schizophrenia type: unspecified Qualified Code(s): F20.9 - Schizophrenia, unspecified Is this a current diagnosis for this admission?: Yes Plan: Continue Zyprexa via his PEG tube (7) Diastolic congestive heart failure Qualifiers: Heart failure chronicity: chronic Qualified Code(s): I50.32 - Chronic diastolic (congestive) heart failure Is this a current diagnosis for this admission?: Yes Plan: Currently the patient appears to be euvolemic. (8) Coronary artery disease Qualifiers: Coronary Disease-Associated Artery/Lesion type: unspecified vessel or lesion type [place] vs. transplanted heart: unspecified whether [place] or transplanted heart Associated angina: without angina Qualified Code(s): I25.10 - Atherosclerotic heart disease of [place] coronary artery without angina pectoris Is this a current diagnosis for this admission?: Yes Plan: He has had an NM in the past. He was receiving IV metoprolol every 6 hours. I am going to change this to Toprol-XL via his PEG tube (9) Full code status Is this a current diagnosis for this admission?: Yes (10) Tobacco abuse Is this a current diagnosis for this admission?: Yes (11) Anxiety Is this a current diagnosis for this admission?: Yes Plan: Currently seems to be controlled (12) Constipation Qualifiers: Constipation type: slow transit constipation Qualified Code(s): K59.01 - Slow transit constipation Is this a current diagnosis for this admission?: Yes Plan: Resolved. Continue bowel regimen (13) Hypercalcemia Is this a current diagnosis for this admission?: Yes Plan: Corrected calcium is 10.4. This may be due to dehydration. Continue free water flushes (14) Hyperglycemia Is this a current diagnosis for this admission?: Yes Plan: Continue sliding-scale insulin. For some reason the patient was on IV Solu- Medrol 40 mg every 8 hours. I am going to change this over to p.o. prednisone today and do a quick taper. Hopefully his blood sugars will begin to improve (15) Elevated serum creatinine Is this a current diagnosis for this admission?: Yes Plan: Again I believe we need to increase his free water flushes. This does not quite meet the criteria for an acute kidney injury but definitely it is above baseline. (16) Do not resuscitate Is this a current diagnosis for this admission?: Yes - Time Time Spent with patient: 25-34 minutes - Inpatient Certification Medical Necessity: Other - Inpatient hospitalization remains necessary. We need to increase his tube feedings to the goal rate and make sure he does not continue to have high residuals. This seems to be improved today. Also the patient has been on multiple parenteral therapies. I would like to get him stable on a regimen through his PEG tube prior to discharge. Also I am going to increase free water flushes and see if his hypercalcemia and elevated creatinine improved tomorrow.
[2017-06-13] MEDS: BISACODYL 10 MG SUPP.RECT PR SCH (11:26)
[2017-06-13] MEDS: RIVAROXABAN 15 MG TABLET PEG SCH (11:27)
[2017-06-13] MEDS: DOCUSATE SODIUM 100 MG CAPSULE PO SCH ×2 (11:27→18:22)
[2017-06-13] MEDS ORDERED: METOPROLOL TARTRATE 25 MG TABLET PEG ONE (12:00)
[2017-06-13] MEDS ORDERED: METOPROLOL SUCCINATE 25 MG TAB.SR.24H PO SCH (12:00)
[2017-06-13] MEDS: OLANZAPINE 5 MG TABLET PEG SCH (21:13)
[2017-06-13] MEDS: ATORVASTATIN CALCIUM 80 MG TABLET PEG SCH (21:14)
[2017-06-13] MEDS: METOPROLOL TARTRATE 25 MG TABLET PEG SCH (21:14)
[2017-06-14] MEDS ORDERED: LANSOPRAZOLE 30 MG TAB.RAP.DR PO SCH (06:00)
[2017-06-14] MEDS ORDERED: ASPIRIN 325 MG TABLET PEG SCH (10:00)
[2017-06-14] MEDS ORDERED: PREDNISONE 20 MG TABLET PO SCH (10:00)
[2017-06-14] MEDS: RIVAROXABAN 15 MG TABLET PEG SCH (10:17)
[2017-06-14] MEDS: BISACODYL 10 MG SUPP.RECT PR SCH (10:17)
[2017-06-14] MEDS: METOPROLOL TARTRATE 25 MG TABLET PEG SCH (10:20)
[2017-06-14] MEDS: DOCUSATE SODIUM 100 MG CAPSULE PO SCH (10:21)
--- NOTE | 2017-06-14 13:02 | PDOC TRANSFER SUMMARY ---
General - Admit/Disc Date/PCP Admission Date/Primary Care Provider: 05/30/17 13:28 FIDEL ROZINA, Discharge Date: 06/14/17 - Discharge Diagnosis (1) Acute CVA (cerebrovascular accident) Is this a current diagnosis for this admission?: Yes (2) Dysphasia Is this a current diagnosis for this admission?: Yes (3) Coronary artery disease Is this a current diagnosis for this admission?: Yes (4) Diastolic congestive heart failure Is this a current diagnosis for this admission?: Yes (5) Expressive aphasia Is this a current diagnosis for this admission?: Yes (6) [facility] current use of anticoagulant Is this a current diagnosis for this admission?: Yes (7) Tobacco abuse Is this a current diagnosis for this admission?: Yes (8) Schizoaffective disorder Is this a current diagnosis for this admission?: Yes (9) Aspiration pneumonia Is this a current diagnosis for this admission?: Yes (10) Muscle spasm Is this a current diagnosis for this admission?: Yes (11) Acute on chronic renal failure Is this a current diagnosis for this admission?: Yes (12) Rhabdomyolysis Is this a current diagnosis for this admission?: Yes (13) Hypoglycemia Is this a current diagnosis for this admission?: Yes (14) Hypokalemia Is this a current diagnosis for this admission?: Yes - Additional Information Resuscitation Status: Full Code Discharge Diet: As Tolerated Discharge Activity: Bedrest Prescriptions: Rivaroxaban [Xarelto 15 mg Tablet] 15 mg PO DAILY #30 tablet Home Medications: Budesonide/Formoterol Fumarate [Symbicort 160-4.5 Mcg Inhaler] 2 puff IH Q12 Escitalopram Oxalate [Lexapro 10 mg Tablet] 10 mg PO DAILY 05/30/17 Olanzapine [Zyprexa 5 mg Tablet] 5 mg PO DAILY 05/30/17 Rivaroxaban [Xarelto 15 mg Tablet] 15 mg PO DAILY 05/30/17 Trazodone HCl [Desyrel] 100 mg PO QHS 05/30/17 Ipratropium/Albuterol Sulfate [Duoneb 3 ml Ampul] 3 ml [facility] [id number] vial.neb Olanzapine [Zyprexa 5 mg Tablet] 5 mg PEG QHS tablet 06/08/17 Rivaroxaban [Xarelto 15 mg Tablet] 15 mg PO DAILY #30 tablet 06/08/17 Aspirin [Aspirin 325 mg Tablet] 325 mg PEG DAILY tablet 06/14/17 Atorvastatin Calcium [Lipitor 80 mg Tablet] 80 mg PEG QHS #0 tablet 06/14/17 Bisacodyl [Dulcolax 10 mg Supp.rect] 10 mg MS DAILY supp.rect 06/14/17 Lansoprazole [Prevacid 30 mg Odt Tablet] 30 mg PO Q6AM tab.rap.dr 06/14/17 Metoprolol Tartrate [Lopressor 25 mg Tablet] 12.5 mg PEG Q12 tablet 06/14/17 Prednisone [Deltasone 20 mg Tablet] 20 mg PO ASDIR PRN #10 tablet 06/14/17 Rivaroxaban [Xarelto 15 mg Tablet] 15 mg PEG DAILY tablet 06/14/17 Scopolamine Hydrobromide [Transderm-Scop 1.5 mg Patch] 1 each TD Q3DAYS@2200 patch.td72 06/14/17 History of Present Illness Admission Date/PCP: 05/30/17 13:28 FIDEL HANDY DO History of Present Illness: DALY PORTILLO SR is a 71 year old male who presented on 05/30 with a decrease in his level of responsiveness, not following commands, and new left- sided weakness. 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 He was not a candidate for TPA due to the onset of symptoms being greater than 4-1/2 hours from the time he received medical attention. 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 Other past medical history includes CHF, VA, HTN, COPD , affective disorder. Hospital Course Hospital Course: The patient was admitted on 05/30/17 with a complaint of left-sided weakness, worsening aphasia, dysphasia, and somnolence. MRI revealed an acute CVA in an MCA distribution resulting in profound left-sided hemiparesis, aphasia, and dysphagia. The patient had right-sided weakness and expressive aphasia from a previous CVA, however, was ambulatory prior to this admission. Echocardiogram revealed a LVEF of 45% without evidence of cardiac source for CVA. Head and neck CTA did not reveal any hemodynamically significant stenosis. Palliative care was consulted and the family determined to make the patient a DNR. He did improve slightly over the initial 72 hours; regaining some mobility to his left lower extremity, increased alertness, however, significant dysphasia and near total aphasia remained. The patient's family members elected to have a PEG tube placed on 06/09/17. He subsequently demonstrated worrisome signs of aspiration and so tube feedings were held. This was eventually ruled out. Tube feeds were resumed and advanced to goal of at 65 mL/ per hour with free water flush of 50 ml/hr. On day of discharge, the patient is in stable condition and tolerating tube feedings at goal rate. He is discharged to [facility] intermediate card tender care. Physical Exam Vital Signs: Temp Pulse Resp BP Pulse Ox 98.0 F 79 16 138/75 H 95 06/14/17 07:55 06/14/17 10:20 06/14/17 10:20 06/14/17 07:55 06/14/17 10:20 Intake & Output 06/13/17 06/14/17 06/15/17 06:59 06:59 06:59 Intake Total 741 1669 361 Output Total 1200 1300 Balance -459 369 361 Weight 76.8 kg 76.8 kg General appearance: PRESENT: no acute distress, well-developed, well-nourished, other - Overweight Head exam: PRESENT: atraumatic, normocephalic Eye exam: PRESENT: conjunctiva pink, EOMI, PERRLA. ABSENT: scleral icterus Ear exam: PRESENT: normal external ear exam Mouth exam: PRESENT: moist, tongue midline Neck exam: ABSENT: carotid bruit, JVD, lymphadenopathy, thyromegaly Respiratory exam: PRESENT: clear to auscultation eric, symmetrical, unlabored. ABSENT: rales, rhonchi, wheezes Cardiovascular exam: PRESENT: RRR, +S1, +S2. ABSENT: diastolic murmur, rubs, systolic murmur Pulses: PRESENT: normal dorsalis pedis pul Vascular exam: PRESENT: normal capillary refill GI/Abdominal exam: PRESENT: normal bowel sounds, soft. ABSENT: distended, guarding, mass, organolmegaly, rebound, tenderness Rectal exam: PRESENT: deferred Extremities exam: PRESENT: full ROM - Minimal movement left extremities; reduced strength and range of motion right extremity. ABSENT: calf tenderness, clubbing, pedal edema Neurological exam: PRESENT: alert, awake, aphasic, other - Unable to assess orientation secondary to expressive aphasia; patient is inappropriately answering yes or no questions today.. ABSENT: CN II-XII grossly intact, motor sensory deficit Psychiatric exam: PRESENT: appropriate affect, normal mood. ABSENT: homicidal ideation, suicidal ideation Skin exam: PRESENT: dry, intact, warm. ABSENT: cyanosis, rash Results Laboratory Results: 06/09/17 07:33 06/09/17 07:33 05/30/17 05/30/17 05/30/17 17:17 17:17 22:00 Creatine Kinase 192 H 614 H CK-MB (CK-2) 1.75 Troponin I 0.039 NT-Pro-B Natriuret Pep 05/30/17 05/31/17 05/31/17 22:00 03:10 03:10 Creatine Kinase 603 H CK-MB (CK-2) 2.26 1.74 Troponin I 0.040 0.035 NT-Pro-B Natriuret Pep 896 06/01/17 06/02/17 06/03/17 06:46 04:42 05:14 Creatine Kinase 937 H 620 H 350 H CK-MB (CK-2) Troponin I NT-Pro-B Natriuret Pep 06/03/17 06/05/17 17:00 05:19 Creatine Kinase 142 CK-MB (CK-2) Troponin I 0.021 NT-Pro-B Natriuret Pep 669 Impressions: Head MRI 05/30/17 00:00 IMPRESSION: Acute infarct external capsule basal ganglia on the right. Chronic left MCA distribution infarct. Atrophy and microvascular ischemia. EVIDENCE OF ACUTE STROKE: Yes RIGHT MCA Head CT 05/30/17 10:16 IMPRESSION: No acute findings-no intracranial hemorrhage. Old left hemispheric infarct. EVIDENCE OF ACUTE STROKE: NO. Head CTA 05/30/17 10:33 IMPRESSION: NO CTA EVIDENCE OF STENOSIS OR ANEURYSM OF THE [place]. Neck CTA 05/30/17 10:33 IMPRESSION: No evidence of dissection or significant stenosis. KUB X-Ray 06/01/17 10:47 IMPRESSION: NG tube with its tip at the level of the proximal stomach in the left upper quadrant. Other findings as noted above Chest X-Ray 06/10/17 05:00 IMPRESSION: NO ACUTE RADIOGRAPHIC FINDING IN THE CHEST. Transfer Plan - Disposition Transfer Plan: Discharge [facility] - Time Spent with Patient Time spent with patient: Less than 30 Minutes Qualifiers - * PATEINT BEING DISCHARGED WITH ANY OF THE FOLLOWING DIAGNOSIS?: Stroke Stroke Pt being discharged on Anti-thrombolytic therapy?: Yes Stroke Pt being discharged on Anti-coagulation therapy?: Yes Stroke Pt being discharged on Statins?: Yes
[2017-06-14 16:14] VITALS: BP 115/72
== END 2017-06-14 17:28 | DRG 64 ==
LOC: ER 10:13 → EH 13:28 → 3W 05-31 19:12
PROVIDERS: ADMIT Emergency Medicine; ATTEND Emergency Medicine
PROC: 3E0F73Z Introduction of Anti-inflammatory into Respiratory Tract, Via Natural or Artificial Opening (ICD-10-PCS; 2017-05-31)
PROC: 0DH63UZ Insertion of Feeding Device into Stomach, Percutaneous Approach (ICD-10-PCS; principal; 2017-06-05 13:00)
DX: I63.411 Cerebral infarction due to embolism of right middle cerebral artery (principal); J69.0 Pneumonitis due to inhalation of food and vomit; G81.94 Hemiplegia, unspecified affecting left nondominant side; N17.9 Acute kidney failure, unspecified; I13.0 Hypertensive heart and chronic kidney disease with heart failure and stage 1 through stage 4 chronic kidney disease, or unspecified chronic kidney disease; M62.82 Rhabdomyolysis; I50.32 Chronic diastolic (congestive) heart failure; Z66 Do not resuscitate; Z51.5 Encounter for palliative care; R47.01 Aphasia; R47.02 Dysphasia; I25.10 Atherosclerotic heart disease of native coronary artery without angina pectoris; J44.9 Chronic obstructive pulmonary disease, unspecified; N18.9 Chronic kidney disease, unspecified; M62.838 Other muscle spasm; E16.2 Hypoglycemia, unspecified; E87.6 Hypokalemia; F25.9 Schizoaffective disorder, unspecified; F41.9 Anxiety disorder, unspecified; K59.01 Slow transit constipation; R73.9 Hyperglycemia, unspecified; E83.52 Hypercalcemia; I25.2 Old myocardial infarction; Z79.899 Other long term (current) drug therapy; Z79.01 Long term (current) use of anticoagulants; Z87.891 Personal history of nicotine dependence; Z88.3 Allergy status to other anti-infective agents; Z82.49 Family history of ischemic heart disease and other diseases of the circulatory system; Z83.6 Family history of other diseases of the respiratory system
CPT/HCPCS: 00731; 36415; 43246; 70450; 70496; 70498; 70551; 71045; 74018; 80048; 80053; 80061; 80076; 81001; 82550; 82553; 82962; 83036; 83735; 83880; 84100; 84443; 84484; 85025; 85027; 85610; 85730; 93005; 93010; 93306; 94640; 96361; 96365; 96366; 96372; 96375; 96376; 99285; G8978-GP; G8979-GP; G8996-GN; G8997-GN; J0360; J1630; J1650; J1815; J1885; J1940; J2060; J2405; J2543; J2704; J2920; J2930; J3480; J3490; J7030; J7120; J7512; J7620; S0028

== ENCOUNTER 2017-06-17 05:28 | Emergency (ER) | payer MEDICARE ==
[2017-06-17] MEDS ORDERED: ASPIRIN 81 MG TABLET, CHEWABLE PO ONE (06:11)
--- NOTE | 2017-06-17 06:30 | ER Document Report ---
ED General - General Chief Complaint: Chest Pain Stated Complaint: CHEST PAIN/FALL Time Seen by Provider: 06/17/17 06:05 Mode of Arrival: Medic Information source: Patient, Relative, Emergency Med Personnel, Outside Facility Records Cannot obtain history due to: Other Notes: 71 yr old male history of previous CVAs [place] who was recently discharged a few days prior presents with complaints of fall from care facility. The patient's notes he has aphasia secondary to strokes, is unable to ambulate has a feeding tube in place, patient was found sitting on the floor by care facility, patient is unable to fully explain his symptoms but does point to his chest appears to have bruising to the forehead TRAVEL OUTSIDE OF THE [place] IN LAST 30 DAYS: No - HPI Onset: Just prior to arrival Onset/Duration: Sudden Quality of pain: Achy Severity: Mild Pain Level: 1 Associated symptoms: Chest pain Exacerbated by: Denies Relieved by: Denies Similar symptoms previously: Yes Recently seen / treated by doctor: Yes - Related Data Allergies/Adverse Reactions: levofloxacin Adverse Reaction (Verified 06/17/17 05:44) Hives Past Medical History - Social History Smoking Status: Never Smoker Cigarette use (# per day): No Chew tobacco use (# tins/day): No Smoking Education Provided: No Family History: CAD, COPD, Hypertension Patient has suicidal ideation: No Patient has homicidal ideation: No - Past Medical History Cardiac Medical History: Reports: Hx Congestive Heart Failure, Hx Heart Attack, Hx Hypertension Pulmonary Medical History: Reports: Hx COPD Neurological Medical History: Reports: Hx Cerebrovascular Accident Renal/ Medical History: Denies: Hx Peritoneal Dialysis Psychiatric Medical History: Reports: Hx Schizoaffective Disorder Denies: Hx Depression Past Surgical History: - Immunizations Hx Pneumococcal Vaccination: 04/27/16 Review of Systems - Review of Systems Notes: REVIEW OF SYSTEMS: CONSTITUTIONAL : Denies fever, chills, or sweats. Denies recent illness. EENT: Denies eye, ear, throat, or mouth pain or symptoms. Denies nasal or sinus congestion or discharge. Denies throat, tongue, or mouth swelling or difficulty swallowing. CARDIOVASCULAR: Admits to chest pain RESPIRATORY: Denies cough, cold, or chest congestion. Denies shortness of breath, difficulty breathing, or wheezing. GASTROINTESTINAL: Denies abdominal pain or distention. Denies nausea, vomiting , or diarrhea. Denies blood in vomitus, stools, or per rectum. Denies black, tarry stools. Denies constipation. GENITOURINARY: Denies difficulty urinating, painful urination, burning, frequency, blood in urine, or discharge. MUSCULOSKELETAL: Denies back or neck pain or stiffness. Denies joint pain or swelling. SKIN: Denies rash, lesions or sores. HEMATOLOGIC : Denies easy bruising or bleeding. LYMPHATIC: Denies swollen, enlarged glands. NEUROLOGICAL: Denies confusion or altered mental status. Denies passing out or loss of consciousness. Denies dizziness or lightheadedness. Denies headache. Denies weakness or paralysis or loss of use of either side. Denies problems with gait or speech. Denies sensory loss, numbness, or tingling. Denies seizures. PSYCHIATRIC: Denies anxiety or stress. Denies depression, suicidal ideation, or homicidal ideation. ALL OTHER SYSTEMS REVIEWED AND NEGATIVE. Dictation was performed using [employer] voice recognition software PHYSICAL EXAMINATION: GENERAL: Chronically ill-appearing male frail HEAD: Atraumatic, normocephalic. EYES: Pupils equal round and reactive to light, extraocular movements intact, sclera anicteric, conjunctiva are normal. ENT: Nares patent, oropharynx clear without exudates. Moist mucous membranes. NECK: Normal range of motion, supple without lymphadenopathy LUNGS: Breath sounds clear to auscultation bilaterally and equal. No wheezes rales or rhonchi. HEART: Regular rate and rhythm without murmurs ABDOMEN: Soft, nontender, nondistended abdomen. No guarding, no rebound. No masses appreciated. G-tube in place Musculoskeletal: Normal range of motion, no pitting or edema. No cyanosis. NEUROLOGICAL: Aphasic left-sided weakness chronic PSYCH: Normal mood, normal affect. SKIN: Warm, Dry, normal turgor, no rashes or lesions noted. Physical Exam - Vital signs Vitals: Resp BP 22 H 119/92 H 06/17/17 06:06 06/17/17 06:06 Course - Re-evaluation Re-evalutation: 06/17/17 06:57 Patient's presentation is most consistent with a fall probably on his head and chest wall, I do not believe this is cardiac in nature, he is resting comfortably at this time in no distress EKG noted no significant abnormality lab work pending 06/17/17 13:58 CT did note worsening of previous CVAs however no acute abnormalities noted, patient overall has been at his baseline, I do not see any acute injuries, besides the contusion to the forehead Patient was watched in the emergency department for 7 hours, second set of cardiac enzymes were negative as well, I do believe patient is stable otherwise for discharge - Vital Signs Vital signs: Temp Pulse Resp BP Pulse Ox 97.9 F 21 H 115/78 97 06/17/17 09:01 06/17/17 13:34 06/17/17 13:34 06/17/17 13:34 - Laboratory Result Diagrams: 06/17/17 07:00 06/17/17 09:33 Laboratory results interpreted by me: 06/17/17 06/17/17 07:00 09:33 WBC 18.6 H MCHC 31.4 L RDW 14.3 H Seg Neuts % (Manual) 81 H Band Neutrophils % 1 L Lymphocytes % (Manual) 10 L Abs Neuts (Manual) 15.3 H Abs Monocytes (Manual) 1.5 H BUN 37 H Calcium 10.6 H ALT 114 H - Diagnostic Test Radiology reviewed: Image reviewed, Reports reviewed - EKG Interpretation by Me EKG shows normal: Sinus rhythm, Chicken, Intervals, QRS Complexes Discharge - Discharge Clinical Impression: Do not resuscitate Fall Qualifiers: Encounter type: initial encounter Qualified Code(s): W19.XXXA - Unspecified fall, initial encounter CVA (cerebral vascular accident) Qualifiers: CVA mechanism: other Qualified Code(s): I63.8 - Other cerebral infarction Condition: Stable Disposition: HOME, SELF-CARE Instructions: Chest Pain of Unclear Cause ([facility]) Referrals: FIDEL HANDY DO [Primary Care Provider] - Follow up tomorrow
[2017-06-17 07:18] LABS: HEMATOCRIT 47.1 % (37.9-51.0); HEMOGLOBIN 14.8 g/dL (13.5-17.0); MEAN CORPUSCULAR HEMOGLOBIN 27.1 pg (27.0-33.4); MEAN CORPUSCULAR HGB CONC 31.4 g/dL (32.0-36.0); MEAN CORPUSCULAR VOLUME 86 fl (80-97); PLATELET COUNT 305 10^3/uL (150-450); RED BLOOD COUNT 5.47 10^6/uL (4.35-5.55); RED CELL DISTRIBUTION WIDTH 14.3 % (11.5-14.0); WHITE BLOOD COUNT 18.6 10^3/uL (4.0-10.5)
[2017-06-17 07:35] LABS: ABSOLUTE LYMPHOCYTES# (MANUAL) 1.9 10^3/uL (0.5-4.7); ABSOLUTE MONOCYTES # (MANUAL) 1.5 10^3/uL (0.1-1.4); ABSOLUTE NEUTROPHILS# (MANUAL) 15.3 10^3/uL (1.7-8.2); BAND NEUTROPHILS % (MANUAL) 1 % (3-5); BASOPHILS % (MANUAL) 0 % (0-2); EOSINOPHILS % (MANUAL) 0 % (0-6); LYMPHOCYTES % (MANUAL) 10 % (13-45); MONOCYTES % (MANUAL) 8 % (3-13); SEGMENTED NEUTROPHILS % (MAN) 81 % (42-78); TOTAL CELLS COUNTED 100
[2017-06-17 07:36] LABS: BURR CELLS SLIGHT; HYPOCHROMASIA SLIGHT; OVALOCYTES SLIGHT; POIKILOCYTOSIS SLIGHT; POLYCHROMASIA SLIGHT
[2017-06-17 07:37] LABS: PLATELET COMMENT ADEQUATE
--- NOTE | 2017-06-17 07:37 | RADIOLOGY REPORT (SQ) ---
EXAM DESCRIPTION: CT HEAD WITHOUT CLINICAL HISTORY: 71 years Male, fall, head injury COMPARISON: MRI 05/30/2017, images only TECHNIQUE: No contrast. This exam was performed according to our departmental dose-optimization program, which includes automated exposure control, adjustment of the mA and/or kV according to patient size and/or use of iterative reconstruction technique. FINDINGS: Moderate encephalomalacia in the right external capsule and lateral basal ganglia increased as correlated with prior MRI, 05/30/2017. Moderate encephalomalacia of the left parietal and temporal lobes consistent with prior left MCA infarct, right paracentral pontine infarct, small encephalomalacia at the left tail of the caudate, moderate confluent white matter microangiopathy, and atherosclerosis. 1.8 cm left maxillary retention cyst-mucocele. No hemorrhage. No mass, mass effect, or midline shift. Extra-axial structures appear otherwise grossly intact. Impression: Subacute and chronic infarct worsened in the right basal ganglia. No evidence of acute hemorrhage.
[2017-06-17 07:38] LABS: TROPONIN I < 0.012 ng/mL
--- NOTE | 2017-06-17 07:39 | RADIOLOGY REPORT (SQ) ---
EXAM DESCRIPTION: CHEST SINGLE VIEW CLINICAL HISTORY: 71 years Male, chest pain COMPARISON: 2.24.18 NUMBER OF VIEWS/TECHNIQUE: 1/AP LIMITATIONS: Chain artifact obscures medial lung apices. FINDINGS: Normal lung volume, clear parenchyma, normal cardiac silhouette, and intact bony thorax. IMPRESSION: No acute cardiopulmonary findings. Limitation.
--- NOTE | 2017-06-17 08:56 | EKG REPORT ---
SEVERITY:- ABNORMAL ECG - SINUS RHYTHM LEFT ANTERIOR FASCICULAR BLOCK ANTEROLATERAL INFARCT, AGE INDETERMINATE : Confirmed by: Rigo Arredondo MD 17-Jun-2017 08:56:35
[2017-06-17 10:24] LABS: ALANINE AMINOTRANSFERASE 114 U/L (21-72); ALBUMIN 3.9 g/dL (3.5-5.0); ALKALINE PHOSPHATASE 48 U/L (38-126); ANION GAP 12 (5-19); ASPARTATE AMINO TRANSFERASE 37 U/L (17-59); BILIRUBIN,DIRECT 0.1 mg/dL (0.0-0.4); BILIRUBIN,TOTAL 0.4 mg/dL (0.2-1.3); BLOOD UREA NITROGEN 37 mg/dL (7-20); CALCIUM 10.6 mg/dL (8.4-10.2); CARBON DIOXIDE 26 mmol/L (22-30); CHLORIDE 107 mmol/L (98-107); CREATINE KINASE 87 U/L (55-170); GLUCOSE 89 mg/dL (75-110); POTASSIUM 4.9 mmol/L (3.6-5.0); SODIUM 144.8 mmol/L (137-145); TOTAL PROTEIN 6.3 g/dL (6.3-8.2)
[2017-06-17 14:40] VITALS: BP 110/66
== END 2017-06-17 14:36 | disposition home or self-care (01) ==
LOC: ER 05:28
DX: S00.83XA Contusion of other part of head, initial encounter (principal); W19.XXXA Unspecified fall, initial encounter; Y92.122 Bedroom in nursing home as the place of occurrence of the external cause; I69.320 Aphasia following cerebral infarction; R07.9 Chest pain, unspecified; I10 Essential (primary) hypertension; I25.2 Old myocardial infarction; J44.9 Chronic obstructive pulmonary disease, unspecified; Z66 Do not resuscitate
CPT/HCPCS: 36415; 70450; 71045; 80053; 82550; 82553; 84484; 85025; 93005; 93010; 99285

== ENCOUNTER 2017-06-25 12:15 | Inpatient (IN) | payer MEDICARE ==
[2017-06-25] MEDS ORDERED: NORMAL SALINE 1000 ML 500 ML IV ONE ×2 (12:38→15:44)
[2017-06-25 13:16] LABS: ABSOLUTE EOSINOPHILS # (AUTO) 0.1 10^3/uL (0.0-0.6); ABSOLUTE LYMPHOCYTES (AUTO) 0.5 10^3/uL (0.5-4.7); ABSOLUTE NEUT (AUTO) 6.3 10^3/uL (1.7-8.2); BASOPHILS % (AUTO) 0.3 % (0-2); EOSINOPHILS % (AUTO) 1.6 % (0-6); HEMATOCRIT 45.8 % (37.9-51.0); HEMOGLOBIN 14.6 g/dL (13.5-17.0); LYMPHOCYTES % (AUTO) 6.7 % (13-45); MEAN CORPUSCULAR HEMOGLOBIN 27.8 pg (27.0-33.4); MEAN CORPUSCULAR HGB CONC 31.8 g/dL (32.0-36.0); MEAN CORPUSCULAR VOLUME 87 fl (80-97); MONOCYTES % (AUTO) 12.5 % (3-13); PLATELET COUNT 177 10^3/uL (150-450); RED BLOOD COUNT 5.26 10^6/uL (4.35-5.55); RED CELL DISTRIBUTION WIDTH 15.3 % (11.5-14.0); SEGMENTED NEUTROPHILS % (AUTO) 78.9 % (42-78); TOTAL CELLS COUNTED % (AUTO) 100 %
[2017-06-25 13:33] LABS: ALANINE AMINOTRANSFERASE 115 U/L (21-72); ALBUMIN 4.3 g/dL (3.5-5.0); ALKALINE PHOSPHATASE 67 U/L (38-126); ANION GAP 13 (5-19); ASPARTATE AMINO TRANSFERASE 49 U/L (17-59); BILIRUBIN,DIRECT 0.2 mg/dL (0.0-0.4); BILIRUBIN,TOTAL 0.4 mg/dL (0.2-1.3); BLOOD UREA NITROGEN 31 mg/dL (7-20); CALCIUM 10.6 mg/dL (8.4-10.2); CARBON DIOXIDE 28 mmol/L (22-30); CHLORIDE 105 mmol/L (98-107); CREATINE KINASE 251 U/L (55-170); GLUCOSE 117 mg/dL (75-110); LIPASE 74.9 U/L (23-300); SODIUM 145.9 mmol/L (137-145); TOTAL PROTEIN 7.3 g/dL (6.3-8.2)
--- NOTE | 2017-06-25 13:44 | RADIOLOGY REPORT (SQ) ---
EXAM DESCRIPTION: CHEST SINGLE VIEW COMPLETED DATE/TIME: 06/25/2017 1:36 pm REASON FOR STUDY: n/v/cough/cp, tachycardia COMPARISON: 06/17/2017. EXAM PARAMETERS: NUMBER OF VIEWS: One view. TECHNIQUE: Single frontal radiographic view of the chest acquired. RADIATION DOSE: NA LIMITATIONS: None. FINDINGS: LUNGS AND PLEURA: No opacities, masses or pneumothorax. No pleural effusion. MEDIASTINUM AND HILAR STRUCTURES: No masses. Contour normal. HEART AND VASCULAR STRUCTURES: Heart normal in size. Normal vasculature. BONES: No acute findings. HARDWARE: None in the chest. OTHER: No other significant finding. IMPRESSION: NO ACUTE RADIOGRAPHIC FINDING IN THE CHEST. TECHNICAL DOCUMENTATION: JOB ID: [id number] [employer]- All Rights Reserved Reading location - IP/workstation name: [email or web address]
[2017-06-25] MEDS ORDERED: ACETAMINOPHEN SUSP 160 MG/5 ML ORAL SYRING GT ONE (14:01)
[2017-06-25 14:27] LABS: CREATINE KINASE MB 2.46 ng/mL (<4.55); TROPONIN I 0.026 ng/mL
[2017-06-25] MEDS ORDERED: ACETAMINOPHEN SOLN 325 MG/10.15 ML UDCUP GT ONE (14:35)
[2017-06-25] MEDS ORDERED: ONDANSETRON HCL INJ/PF 4 MG/2 ML SDV IV ONE (15:21)
--- NOTE | 2017-06-25 15:21 | RADIOLOGY REPORT (SQ) ---
EXAM DESCRIPTION: CT ABD/PELVIS WITH IV ONLY COMPLETED DATE/TIME: 06/25/2017 3:07 pm REASON FOR STUDY: abd pain, n/v COMPARISON: 09/23/2016 TECHNIQUE: CT scan of the abdomen and pelvis performed using helical scanning technique with dynamic intravenous contrast injection. No oral contrast. Images reviewed with lung, soft tissue, and bone windows. Reconstructed coronal and sagittal MPR images reviewed. Delayed images for evaluation of the urinary system also acquired. All images stored on PACS. All CT scanners at this facility use dose modulation, iterative reconstruction, and/or weight based d osing when appropriate to reduce radiation dose to as low as reasonably achievable (ALARA). [facility]: Dose Right [facility]: CareDose [facility]: Dose Right [facility]: Teradose 4D [facility]: [employer] CONTRAST TYPE AND DOSE: contrast/concentration: Isovue 370.00 mg/ml; Total Contrast Delivered: 94.0 ml; Total Saline Delivered: 71.0 ml 94.2 Isovue 370- low osmolar. RENAL FUNCTION: GFR > 60. . RADIATION DOSE: CT Rad equipment meets quality standard of care and radiation dose reduction techniq ues were employed. CTDIvol: 9.9 - 14.2 mGy. DLP: 1299 mGy-cm.. LIMITATIONS: None. FINDINGS: LOWER CHEST: No significant findings. No nodules or infiltrates. LIVER: Normal size. No masses. No dilated ducts. SPLEEN: Normal size. No focal lesions. PANCREAS: No masses. No significant calcifications. No adjacent inflammation or peripancreatic fluid collections. Pancreatic duct not dilated. GALLBLADDER: No identified stones by CT criteria. No inflammatory changes to suggest cholecystitis. ADRENAL GLANDS: No significant masses or asymmetry. RIGHT KIDNEY AND URETER: No solid masses. No significant calcifications. No hydronephrosis or hyd roureter. Subcentimeter hypodensity in the mid right kidney is too small to characterize on this exa m but is unchanged from prior exam LEFT KIDNEY AND URETER: No solid masses. No significant calcifications. No hydronephrosis or hydr oureter. AORTA AND VESSELS: No aneurysm. No dissection. Renal arteries, SMA, celiac without stenosis. RETROPERITONEUM: No retroperitoneal adenopathy, hemorrhage or masses. BOWEL AND PERITONEAL CAVITY: No masses or inflammatory changes. No free fluid or peritoneal masses. APPENDIX: Normal. PELVIS: No mass. No free fluid. Normal bladder. ABDOMINAL WALL: No masses. No hernias. BONES: No significant or acute findings. OTHER: No other significant finding. IMPRESSION: NO SIGNIFICANT OR ACUTE FINDING IN THE ABDOMEN OR PELVIS ON CT SCAN WITH IV CONTRAST. TECHNICAL DOCUMENTATION: JOB ID: [id number] Quality ID # [id number]: Final reports with documentation of one or more dose reduction techniques (e.g., Au tomated exposure control, adjustment of the mA and/or kV according to patient size, use of iterative reconstruction technique) 2010 [facility]- All Rights Reserved Reading location - IP/workstation name: [email or web address]
[2017-06-25] MEDS ORDERED: CEFTRIAXONE INJ 1000 MG VIAL IV ONE (15:44)
--- NOTE | 2017-06-25 15:48 | ER Document Report ---
ED Respiratory Problem - General Chief Complaint: Shortness Of Breath Stated Complaint: ABDOMINAL PAIN Time Seen by Provider: 06/25/17 12:37 Mode of Arrival: Medic Information source: Relative, Outside Facility Records Notes: Patient is a 71-year-old male with a history of COPD/congestive heart failure, multiple strokes who presents to the ER today via EMS from [facility] for 2 days of nausea, "gagging" per sister, abdominal pain per [facility] staff. Patient is nonverbal due to multiple strokes in his history and staff states that he has been pointing to his abdomen and acting like he is in pain." Patient does not have a Pickard catheter. Patient has a fever of 100.4F per staff at the [facility]. Patient has a G-tube and is only fed through that. Sister denies that he is vomited. She states that when he gags it looks like he is going to vomit but that he ends up gagging and coughing and then appears short of breath. TRAVEL OUTSIDE OF THE [place] IN LAST 30 DAYS: No - Related Data Allergies/Adverse Reactions: levofloxacin Adverse Reaction (Verified 06/17/17 05:44) Hives Past Medical History - General Information source: Outside Facility Records - Social History Smoking Status: Never Smoker Chew tobacco use (# tins/day): No Frequency of alcohol use: None Drug Abuse: None Family History: CAD, COPD, Hypertension Patient has suicidal ideation: No Patient has homicidal ideation: No - Past Medical History Cardiac Medical History: Reports: Hx Congestive Heart Failure, Hx Heart Attack, Hx Hypertension Pulmonary Medical History: Reports: Hx COPD Neurological Medical History: Reports: Hx Cerebrovascular Accident Renal/ Medical History: Denies: Hx Peritoneal Dialysis Psychiatric Medical History: Reports: Hx Schizoaffective Disorder Denies: Hx Depression Past Surgical History: - Immunizations Hx Pneumococcal Vaccination: 04/27/16 Review of Systems - Review of Systems Constitutional: See HPI EENT: No symptoms reported Cardiovascular: No symptoms reported Respiratory: See HPI Gastrointestinal: See HPI Genitourinary: No symptoms reported Male Genitourinary: No symptoms reported Musculoskeletal: No symptoms reported Skin: No symptoms reported Hematologic/Lymphatic: No symptoms reported Neurological/Psychological: See HPI Physical Exam - Vital signs Vitals: Resp Pulse Ox 29 H 94 06/25/17 12:36 06/25/17 12:36 - Notes Notes: PHYSICAL EXAMINATION: GENERAL: Chronically ill-appearing, appears weak, but in no acute distress. HEAD: Atraumatic, normocephalic. EYES: Pupils equal round and reactive to light, extraocular movements intact, sclera anicteric, conjunctiva are normal. ENT: Airway patent NECK: Normal range of motion, supple without lymphadenopathy LUNGS: Cough, mild wheezes throughout, no rales or rhonchi. HEART: Tachycardic with regular rhythm without murmurs ABDOMEN: Soft, G-tube in place, no tenderness. No guarding, no rebound BACK: no vertebral tenderness GI/: no CVA tenderness EXTREMITIES: Normal range of motion, no pitting edema. No cyanosis. NEUROLOGICAL: Nonverbal, does follow commands, decreased strength bilaterally PSYCH: Flat affect, nonverbal SKIN: Warm, Dry, normal turgor, no rashes or lesions noted Course - Re-evaluation Re-evalutation: 06/25/17 18:41 Patient is hypotensive when he arrives, 75/40s, tachycardic into the 120s, cardiac enzymes are indeterminate, EKG reveals no evidence of ischemia or abnormality, chest x-ray reveals COPD but no acute pathology, urinalysis reveals infection with moderate leukocytes, 44 white blood cells. Patient was given Tylenol for fever. Patient admitted to Dr. Bernard, hospitalist for urosepsis. Patient started on IV Rocephin and given 500 cc boluses of fluids at a time because of his history of CHF. Patient did tolerate this well with me. Patient's heart rate did improve, down to 10 5 bpm after fluids, patient's blood pressure also improved up to 92/78 after fluids. 06/25/17 20:42 - Vital Signs Vital signs: Temp Pulse Resp BP Pulse Ox 100.3 F 123 H 37 H 136/106 H 92 06/25/17 13:17 06/25/17 13:17 06/25/17 20:01 06/25/17 20:01 06/25/17 20:01 - Laboratory Result Diagrams: 06/25/17 12:55 06/25/17 12:55 Laboratory results interpreted by me: 06/25/17 06/25/17 06/25/17 12:55 12:55 15:30 MCHC 31.8 L RDW 15.3 H Seg Neutrophils % 78.9 H Lymphocytes % 6.7 L Sodium 145.9 H BUN 31 H Est GFR (Non-Af Amer) 58 L Glucose 117 H Calcium 10.6 H ALT 115 H Creatine Kinase 251 H Ur Leukocyte Esterase LARGE H Urine Ascorbic Acid 40 H Critical Care Note - Critical Care Note Total time excluding time spent on procedures (mins): 35 - 35___ minutes spent in critical care time with patient, consulted with attending, speaking with family, placing orders and evaluating tests and labs. Discharge - Discharge Clinical Impression: UTI (urinary tract infection) Qualifiers: Urinary tract infection type: site unspecified Hematuria presence: without hematuria Qualified Code(s): N39.0 - Urinary tract infection, site not specified Sepsis Qualifiers: Sepsis type: sepsis due to unspecified organism Qualified Code(s): A41.9 - Sepsis, unspecified organism Condition: Stable Disposition: ADMITTED INPATIENT Admitting Provider: [facility] Unit Admitted: [facility]
[2017-06-25 16:07] LABS: APPEARANCE,URINE SLIGHTLY-CLOUDY; BILIRUBIN,URINE NEGATIVE (NEGATIVE); COLOR,URINE YELLOW; GLUCOSE, URINE NEGATIVE (NEGATIVE); KETONES,URINE NEGATIVE (NEGATIVE); LEUKOCYTE ESTERASE,URINE LARGE (NEGATIVE); NITRITE,URINE NEGATIVE (NEGATIVE); PROTEIN,URINE NEGATIVE (NEGATIVE); URINE SPECIFIC GRAVITY 1.039; UROBILINOGEN,URINE NEGATIVE mg/dL (<2.0)
[2017-06-25 16:46] LABS: VENOUS BLOOD BASE EXCESS -1.9 mmol/L; VENOUS BLOOD HCO3 25.4 mmol/L (20-32); VENOUS BLOOD PCO2 52.3 mmHg (35-63); VENOUS BLOOD PH 7.3 (7.30-7.42)
[2017-06-25] MEDS ORDERED: MAG HYDROX/AL HYDROX/SIMETH SUSP 30 ML UDCUP PEG PRN (16:48)
[2017-06-25] MEDS ORDERED: NORMAL SALINE 1000 ML 1,000 ML IV SCH (17:00)
[2017-06-25] MEDS: ONDANSETRON HCL INJ/PF 4 MG/2 ML SDV IV PRN (17:28)
--- NOTE | 2017-06-25 18:01 | PDOC H&P ---
History of Present Illness Admission Date/PCP: 06/25/17 17:22 FIDEL HANDY DO Patient complains of: Hypotension, nausea and vomiting History of Present Illness: DALY PORTILLO SR is a 71 year old male with a past medical history of schizoaffective disorder, CVA, expressive aphasia, left-sided hemiparesis, dysphasia, and congestive heart failure of 45%. Patient is a skilled nursing resident on palliative care and DNR who has had 24 hours of abdominal pain nausea vomiting. In the emergency room is found to have hypotension with a systolic pressure in the 80s and a urinalysis suggestive of pyuria. Abdominal CT imaging shows mild ileus only, no abscess or pyelonephritis. Patient was started on empiric antibiotics, and IV fluid challenge and referred the hospitalist for admission Past Medical History Cardiac Medical History: Reports: Congestive Heart Failure, Myocardial Infarction, Hypertension Pulmonary Medical History: Reports: Chronic Obstructive Pulmonary Disease (COPD) Psychiatric Medical History: Reports: Schizoaffective Disorder Denies: Depression Past Surgical History Past Surgical History: Social History Information Source: Legal Guardian, [facility] Records Smoking Status: Never Smoker Frequency of Alcohol Use: None Hx Recreational Drug Use: No Drugs: None Hx Prescription Drug Abuse: No - Advance Directive Resuscitation Status: Do Not Resuscitate Family History Family History: CAD, COPD, Hypertension Parental Family History Reviewed: Yes Children Family History Reviewed: Yes Sibling(s) Family History Reviewed.: Yes Medication/Allergy Home Medications: Budesonide/Formoterol Fumarate [Symbicort 160-4.5 Mcg Inhaler] 2 puff IH Q12 Ipratropium/Albuterol Sulfate [Duoneb 3 ml Ampul] 3 ml [facility] [id number] vial.neb Aspirin [Aspirin 325 mg Tablet] 325 mg PEG DAILY tablet 06/14/17 Atorvastatin Calcium [Lipitor 80 mg Tablet] 80 mg PEG QHS #0 tablet 06/14/17 Escitalopram Oxalate [Lexapro 10 mg Tablet] 10 mg PEG DAILY #0 06/14/17 Lansoprazole [Prevacid 30 mg Odt Tablet] 30 mg PEG Q6AM tab.rap. 06/14/17 Metoprolol Tartrate [Lopressor 25 mg Tablet] 12.5 mg PEG Q12 tablet 06/14/17 Olanzapine [Zyprexa 5 mg Tablet] 5 mg PEG DAILY #0 06/14/17 Prednisone 20 mg PEG ASDIR PRN #10 tablet 06/14/17 Rivaroxaban [Xarelto 15 mg Tablet] 15 mg PEG DAILY #0 06/14/17 Scopolamine Hydrobromide [Transderm-Scop 1.5 mg Patch] 1 each TD Q3DAYS@2200 patch.td72 06/14/17 Allergies/Adverse Reactions: levofloxacin Adverse Reaction (Verified 06/17/17 05:44) Hives Review of Systems ROS unobtainable: Due to mental status - Unobtainable Physical Exam Vital Signs: Temp Pulse Resp BP Pulse Ox 100.3 F 123 H 29 H 113/77 94 06/25/17 13:17 06/25/17 13:17 06/25/17 17:01 06/25/17 17:01 06/25/17 17:01 General appearance: PRESENT: cooperative, disheveled, severe distress, thin Head exam: PRESENT: atraumatic, normocephalic Eye exam: PRESENT: conjunctiva pink, EOMI, PERRLA. ABSENT: scleral icterus Ear exam: PRESENT: normal external ear exam Mouth exam: PRESENT: moist, tongue midline Neck exam: ABSENT: carotid bruit, JVD, lymphadenopathy, thyromegaly Respiratory exam: PRESENT: accessory muscle use, crackles, prolonged expiratory phas, wheezes Cardiovascular exam: PRESENT: RRR. ABSENT: diastolic murmur, rubs, systolic murmur Pulses: PRESENT: normal dorsalis pedis pul Vascular exam: PRESENT: normal capillary refill GI/Abdominal exam: PRESENT: normal bowel sounds, soft. ABSENT: distended, guarding, mass, organolmegaly, rebound, tenderness Rectal exam: PRESENT: deferred Extremities exam: PRESENT: full ROM. ABSENT: calf tenderness, clubbing, pedal edema Neurological exam: PRESENT: alert, awake, oriented to person, CN II-XII grossly intact, aphasic. ABSENT: motor sensory deficit Psychiatric exam: PRESENT: appropriate affect, normal mood. ABSENT: homicidal ideation, suicidal ideation Skin exam: PRESENT: dry, intact, warm. ABSENT: cyanosis, rash Results Impressions: Chest X-Ray 06/25/17 12:38 IMPRESSION: NO ACUTE RADIOGRAPHIC FINDING IN THE CHEST. Abdomen/Pelvis CT 06/25/17 14:01 IMPRESSION: NO SIGNIFICANT OR ACUTE FINDING IN THE ABDOMEN OR PELVIS ON CT SCAN WITH IV CONTRAST. Assessment & Plan - Diagnosis (1) Sepsis Qualifiers: Sepsis type: sepsis due to unspecified organism Qualified Code(s): A41.9 - Sepsis, unspecified organism Is this a current diagnosis for this admission?: Yes Plan: Secondary to urinary tract infection, IV fluid challenge, empiric antibiotics, follow-up blood pressure, CBC, blood and urine culture (2) UTI (urinary tract infection) Qualifiers: Urinary tract infection type: site unspecified Hematuria presence: without hematuria Qualified Code(s): N39.0 - Urinary tract infection, site not specified Is this a current diagnosis for this admission?: Yes Plan: Patient had recent Pickard catheter during hospitalization, please see #1 (3) CHF (congestive heart failure) Is this a current diagnosis for this admission?: Yes Plan: Ejection fraction of 45% anticipate he will tolerate 3 or 4 L of normal saline prior to diuresis. (4) Schizoaffective disorder Qualifiers: Schizoaffective disorder type: unspecified Qualified Code(s): F25.9 - Schizoaffective disorder, unspecified Is this a current diagnosis for this admission?: Yes Plan: Supportive care and symptomatic management. - Time Time Spent: 50 to 70 Minutes - Inpatient Certification Medical Necessity: Need Close Monitoring Due to Risk of Patient Decompensation
[2017-06-25] MEDS: DOCUSATE SODIUM 100 MG/10 ML UDC PEG SCH (18:16)
[2017-06-25 19:14] LABS: ARTERIAL BLOOD BASE EXCESS -4.5 mmol/L; ARTERIAL BLOOD H2CO3 1.51 mmol/L (1.05-1.35); ARTERIAL BLOOD HCO3 22.7 mmol/L (20-26); ARTERIAL BLOOD O2 SATURATION 93.3 % (94-98); ARTERIAL BLOOD PCO2 50.1 mmHg (35-45); ARTERIAL BLOOD PH 7.27 (7.35-7.45); ARTERIAL BLOOD PO2 75.8 mmHg (80-100); ARTERIAL BLOOD TOTAL CO2 24.2 mmol/L (23-27)
[2017-06-25 19:15] LABS: ARTERIAL BLOOD FIO2 2L
--- NOTE | 2017-06-25 19:33 | RADIOLOGY REPORT (SQ) ---
EXAM DESCRIPTION: CHEST SINGLE VIEW COMPLETED DATE/TIME: 06/25/2017 7:01 pm REASON FOR STUDY: working harder breathing, increased RR COMPARISON: 06/25/2017 earlier. NUMBER OF VIEWS: One view. TECHNIQUE: Single frontal radiographic view of the chest acquired. LIMITATIONS: None. FINDINGS: LUNGS AND PLEURA: Chronic hyperinflation and changes of apparent COPD, as before. Apical pleural thickening and scar. No acute infiltrate or pneumothorax or developing failure. MEDIASTINUM AND HILAR STRUCTURES: No masses. Contour normal. HEART AND VASCULAR STRUCTURES: Heart normal in size. Normal vasculature. BONES: No acute findings. HARDWARE: None in the chest. OTHER: No other significant finding. IMPRESSION: COPD. NO ACUTE RADIOGRAPHIC FINDING IN THE CHEST. TECHNICAL DOCUMENTATION: JOB ID: [id number] [employer]- All Rights Reserved Reading location - IP/workstation name: [email or web address]
[2017-06-25] MEDS ORDERED: FUROSEMIDE INJ/PF 20 MG/2 ML SDV IV ONE (19:47)
[2017-06-25] MEDS: IPRATROPIUM/ALBUTEROL 0.5-2.5 MG/3 ML AMPUL NEB PRN (21:38)
--- NOTE | 2017-06-25 21:54 | EKG REPORT ---
SEVERITY:- ABNORMAL ECG - SINUS TACHYCARDIA LEFT ANTERIOR FASCICULAR BLOCK ANTEROLATERAL INFARCT, AGE INDETERMINATE : Confirmed by: Frantz Dove 25-Jun-2017 21:53:39
[2017-06-25] MEDS ORDERED: SCOPOLAMINE HYDROBROMIDE 1.5 MG PATCH.TD72 TD SCH (22:00)
[2017-06-25] MEDS: ATORVASTATIN CALCIUM 80 MG TABLET PEG SCH (23:33)
[2017-06-25] MEDS: METOPROLOL TARTRATE 25 MG TABLET PEG SCH (23:33)
[2017-06-26] MEDS: BUDESONIDE/FORMOTEROL 160-4.5 MCG 60 PUFF/6 GM MDI IH SCH ×3 (00:47→22:43)
[2017-06-26] MEDS ORDERED: METHYLPREDNISOLONE INJ 125 MG/2 ML SDV IV ONE (01:00)
[2017-06-26] MEDS: IPRATROPIUM/ALBUTEROL 0.5-2.5 MG/3 ML AMPUL NEB SCH ×7 (01:01→23:32)
[2017-06-26] MEDS: LANSOPRAZOLE 30 MG TAB.RAP.DR PEG SCH (05:41)
[2017-06-26 07:21] LABS: ABSOLUTE LYMPHOCYTES (AUTO) 0.4 10^3/uL (0.5-4.7); ABSOLUTE MONOCYTES (AUTO) 0.1 10^3/uL (0.1-1.4); ABSOLUTE NEUT (AUTO) 6.6 10^3/uL (1.7-8.2); BASOPHILS % (AUTO) 0.2 % (0-2); EOSINOPHILS % (AUTO) 0.1 % (0-6); HEMATOCRIT 43.1 % (37.9-51.0); HEMOGLOBIN 13.9 g/dL (13.5-17.0); LYMPHOCYTES % (AUTO) 5.2 % (13-45); MEAN CORPUSCULAR HEMOGLOBIN 28.1 pg (27.0-33.4); MEAN CORPUSCULAR HGB CONC 32.3 g/dL (32.0-36.0); MEAN CORPUSCULAR VOLUME 87 fl (80-97); MONOCYTES % (AUTO) 2.1 % (3-13); PLATELET COUNT 149 10^3/uL (150-450); RED BLOOD COUNT 4.96 10^6/uL (4.35-5.55); RED CELL DISTRIBUTION WIDTH 15.6 % (11.5-14.0); SEGMENTED NEUTROPHILS % (AUTO) 92.4 % (42-78); TOTAL CELLS COUNTED % (AUTO) 100 %; WHITE BLOOD COUNT 7.2 10^3/uL (4.0-10.5)
[2017-06-26 07:45] LABS: ALANINE AMINOTRANSFERASE 107 U/L (21-72); ALBUMIN 3.7 g/dL (3.5-5.0); ALKALINE PHOSPHATASE 67 U/L (38-126); ANION GAP 15 (5-19); ASPARTATE AMINO TRANSFERASE 42 U/L (17-59); BILIRUBIN,DIRECT 0.4 mg/dL (0.0-0.4); BILIRUBIN,TOTAL 0.5 mg/dL (0.2-1.3); BLOOD UREA NITROGEN 28 mg/dL (7-20); CALCIUM 9.7 mg/dL (8.4-10.2); CARBON DIOXIDE 23 mmol/L (22-30); CHLORIDE 110 mmol/L (98-107); GLUCOSE 134 mg/dL (75-110); POTASSIUM 4.6 mmol/L (3.6-5.0); SODIUM 147.6 mmol/L (137-145); TOTAL PROTEIN 6.6 g/dL (6.3-8.2)
[2017-06-26] MEDS: METOPROLOL TARTRATE 25 MG TABLET PEG SCH ×2 (09:44→22:40)
[2017-06-26] MEDS: METHYLPREDNISOLONE INJ 125 MG/2 ML SDV IV SCH ×2 (09:54→22:39)
[2017-06-26] MEDS: ESCITALOPRAM OXALATE 10 MG TABLET PEG SCH (09:55)
[2017-06-26] MEDS: ASPIRIN 325 MG TABLET PEG SCH (09:55)
[2017-06-26] MEDS: RIVAROXABAN 15 MG TABLET PEG SCH (09:55)
[2017-06-26] MEDS: OLANZAPINE 5 MG TABLET PEG SCH (09:55)
[2017-06-26] MEDS: DOCUSATE SODIUM 100 MG/10 ML UDC PEG SCH ×2 (09:56→17:08)
[2017-06-26] MEDS ORDERED: CEFTRIAXONE 1 GM/D5W RTU 1 GM/50 ML RTUPB IV SCH (10:00)
[2017-06-26] MEDS: CEFTRIAXONE SODIUM 1,000 MG in NORMAL SALINE 100 ML IV SCH (10:02)
[2017-06-26] MEDS: SCOPOLAMINE HYDROBROMIDE 1.5 MG PATCH.TD72 TD SCH (10:19)
[2017-06-26] MEDS ORDERED: NORMAL SALINE 1000 ML 1,000 ML IV ONE (10:30)
[2017-06-26] MEDS ORDERED: RINGERS SOLUTION,LACTATED 1,000 ML IV PRN (12:27)
[2017-06-26] MEDS ORDERED: DEXTROSE 5%-1/2 NORMAL SALINE 1,000 ML IV PRN (12:37)
--- NOTE | 2017-06-26 12:59 | PDOC PROGRESS REPORT ---
Subjective Progress Note for:: 06/26/17 Subjective:: Nursing states that pt's blood pressure is low. Reason For Visit: SEPSIS, UTI, NPO Physical Exam Vital Signs: Temp Pulse Resp BP Pulse Ox 97.8 F 103 H 18 101/64 99 06/26/17 11:01 06/26/17 11:20 06/26/17 11:20 06/26/17 11:01 06/26/17 11:20 Intake & Output 06/25/17 06/26/17 06/27/17 06:59 06:59 06:59 Intake Total 70 0 Output Total 2250 150 Balance -2180 -150 Weight 87.1 kg General appearance: PRESENT: other - Sleeping Head exam: PRESENT: atraumatic, normocephalic Eye exam: PRESENT: conjunctiva pink, EOMI. ABSENT: scleral icterus Ear exam: PRESENT: normal external ear exam Mouth exam: PRESENT: moist, tongue midline Neck exam: ABSENT: carotid bruit, JVD, lymphadenopathy, thyromegaly Respiratory exam: PRESENT: clear to auscultation eric. ABSENT: rales, rhonchi, wheezes Cardiovascular exam: PRESENT: RRR. ABSENT: diastolic murmur, rubs, systolic murmur Pulses: PRESENT: normal dorsalis pedis pul Vascular exam: PRESENT: normal capillary refill GI/Abdominal exam: PRESENT: normal bowel sounds, soft, other - GT in place. ABSENT: distended, guarding, mass, organolmegaly, rebound, tenderness Rectal exam: PRESENT: deferred Extremities exam: PRESENT: other - upper ext contractures. ABSENT: calf tenderness, clubbing, pedal edema Neurological exam: PRESENT: other - sleeping. Psychiatric exam: PRESENT: other - resting comfortable Skin exam: PRESENT: warm Results Laboratory Results: 06/26/17 06:05 06/26/17 06:05 06/25/17 06/26/17 06/26/17 18:51 06:05 06:05 WBC 7.2 RBC 4.96 Hgb 13.9 Hct 43.1 MCV 87 MCH 28.1 MCHC 32.3 RDW 15.6 H Plt Count 149 L Seg Neutrophils % 92.4 H Lymphocytes % 5.2 L Monocytes % 2.1 L Eosinophils % 0.1 Basophils % 0.2 Absolute Neutrophils 6.6 Absolute Lymphocytes 0.4 L Absolute Monocytes 0.1 Absolute Eosinophils 0.0 Absolute Basophils 0.0 Carbonic Acid 1.51 H HCO3/H2CO3 Ratio 15:1 ABG pH 7.27 L ABG pCO2 50.1 H ABG pO2 75.8 L ABG HCO3 22.7 ABG O2 Saturation 93.3 L ABG Base Excess -4.5 FiO2 2L Sodium 147.6 H Potassium 4.6 Chloride 110 H Carbon Dioxide 23 Anion Gap 15 BUN 28 H Creatinine 1.32 H Est GFR ( Amer) > 60 Est GFR (Non-Af Amer) 54 L Glucose 134 H Calcium 9.7 Total Bilirubin 0.5 AST 42 ALT 107 H Alkaline Phosphatase 67 Total Protein 6.6 Albumin 3.7 Impressions: Abdomen/Pelvis CT 06/25/17 14:01 IMPRESSION: NO SIGNIFICANT OR ACUTE FINDING IN THE ABDOMEN OR PELVIS ON CT SCAN WITH IV CONTRAST. Chest X-Ray 06/25/17 18:39 IMPRESSION: COPD. NO ACUTE RADIOGRAPHIC FINDING IN THE CHEST. Assessment & Plan - Diagnosis (1) Sepsis Qualifiers: Sepsis type: sepsis due to unspecified organism Qualified Code(s): A41.9 - Sepsis, unspecified organism Is this a current diagnosis for this admission?: Yes Plan: (Tachycardia, Hypotension, concern for UTI, Temp 100.3F) Secondary to Concern for UTI:Urine culture has demonstrated no growth. Pt's blood cultures are pending. (2) Acute cystitis Is this a current diagnosis for this admission?: Yes Plan: Urine culture has demonstrated no growth. (3) CHF (congestive heart failure) Is this a current diagnosis for this admission?: Yes Plan: Chronic Diastolic Congestive Heart Failure: Pt was placed on IVFs. (4) CVA (cerebral vascular accident) Qualifiers: CVA mechanism: other Qualified Code(s): I63.8 - Other cerebral infarction Is this a current diagnosis for this admission?: Yes Plan: Supportive care. Will continue pt on Xarelto. (5) Urinary retention Is this a current diagnosis for this admission?: Yes Plan: Pickard anchored. (6) Hypernatremia Is this a current diagnosis for this admission?: Yes Plan: Will place pt on D5W 75cc/hour. Will check BMP this evening. (7) Schizoaffective disorder Qualifiers: Schizoaffective disorder type: unspecified Qualified Code(s): F25.9 - Schizoaffective disorder, unspecified Is this a current diagnosis for this admission?: Yes Plan: Will continue pt home medications. - Time Time Spent with patient: 15-24 minutes
[2017-06-26] MEDS: DEXTROSE 5%-1/2 NORMAL SALINE 1,000 ML IV PRN (13:23)
[2017-06-26 18:52] LABS: ANION GAP 16 (5-19); BLOOD UREA NITROGEN 31 mg/dL (7-20); CALCIUM 9.7 mg/dL (8.4-10.2); CARBON DIOXIDE 23 mmol/L (22-30); CHLORIDE 108 mmol/L (98-107); GLUCOSE 149 mg/dL (75-110); POTASSIUM 4.4 mmol/L (3.6-5.0); SODIUM 146.8 mmol/L (137-145)
[2017-06-26] MEDS: ATORVASTATIN CALCIUM 80 MG TABLET PEG SCH (22:38)
[2017-06-27] MEDS: IPRATROPIUM/ALBUTEROL 0.5-2.5 MG/3 ML AMPUL NEB SCH ×5 (04:17→20:24)
[2017-06-27] MEDS: DEXTROSE 5%-1/2 NORMAL SALINE 1,000 ML IV PRN (05:14)
[2017-06-27] MEDS: LANSOPRAZOLE 30 MG TAB.RAP.DR PEG SCH (05:14)
[2017-06-27 06:46] LABS: ALANINE AMINOTRANSFERASE 73 U/L (21-72); ALBUMIN 3.3 g/dL (3.5-5.0); ALKALINE PHOSPHATASE 50 U/L (38-126); ANION GAP 12 (5-19); ASPARTATE AMINO TRANSFERASE 40 U/L (17-59); BILIRUBIN,DIRECT 0.3 mg/dL (0.0-0.4); BILIRUBIN,TOTAL 0.3 mg/dL (0.2-1.3); BLOOD UREA NITROGEN 32 mg/dL (7-20); CALCIUM 9.7 mg/dL (8.4-10.2); CARBON DIOXIDE 26 mmol/L (22-30); CHLORIDE 111 mmol/L (98-107); GLUCOSE 146 mg/dL (75-110); POTASSIUM 4.4 mmol/L (3.6-5.0); SODIUM 149.3 mmol/L (137-145); TOTAL PROTEIN 6.2 g/dL (6.3-8.2)
[2017-06-27 06:50] LABS: ABSOLUTE LYMPHOCYTES (AUTO) 0.5 10^3/uL (0.5-4.7); ABSOLUTE MONOCYTES (AUTO) 0.3 10^3/uL (0.1-1.4); ABSOLUTE NEUT (AUTO) 5.6 10^3/uL (1.7-8.2); BASOPHILS % (AUTO) 0.1 % (0-2); EOSINOPHILS % (AUTO) 0.1 % (0-6); HEMATOCRIT 39.7 % (37.9-51.0); HEMOGLOBIN 12.6 g/dL (13.5-17.0); LYMPHOCYTES % (AUTO) 7.3 % (13-45); MEAN CORPUSCULAR HEMOGLOBIN 27.7 pg (27.0-33.4); MEAN CORPUSCULAR HGB CONC 31.8 g/dL (32.0-36.0); MEAN CORPUSCULAR VOLUME 87 fl (80-97); MONOCYTES % (AUTO) 4.7 % (3-13); PLATELET COUNT 135 10^3/uL (150-450); RED BLOOD COUNT 4.57 10^6/uL (4.35-5.55); RED CELL DISTRIBUTION WIDTH 15.3 % (11.5-14.0); SEGMENTED NEUTROPHILS % (AUTO) 87.8 % (42-78); TOTAL CELLS COUNTED % (AUTO) 100 %; WHITE BLOOD COUNT 6.4 10^3/uL (4.0-10.5)
[2017-06-27] MEDS: ASPIRIN 325 MG TABLET PEG SCH (10:31)
[2017-06-27] MEDS: CEFTRIAXONE SODIUM 1,000 MG in NORMAL SALINE 100 ML IV SCH (10:32)
[2017-06-27] MEDS: ESCITALOPRAM OXALATE 10 MG TABLET PEG SCH (10:32)
[2017-06-27] MEDS: METOPROLOL TARTRATE 25 MG TABLET PEG SCH ×2 (10:32→22:15)
[2017-06-27] MEDS: BUDESONIDE/FORMOTEROL 160-4.5 MCG 60 PUFF/6 GM MDI IH SCH ×2 (10:32→22:13)
[2017-06-27] MEDS: OLANZAPINE 5 MG TABLET PEG SCH (10:32)
[2017-06-27] MEDS: DOCUSATE SODIUM 100 MG/10 ML UDC PEG SCH ×2 (10:33→17:35)
[2017-06-27] MEDS: RIVAROXABAN 15 MG TABLET PEG SCH (10:33)
[2017-06-27] MEDS: METHYLPREDNISOLONE INJ 125 MG/2 ML SDV IV SCH ×2 (10:33→22:12)
--- NOTE | 2017-06-27 11:00 | PDOC PROGRESS REPORT ---
Subjective Progress Note for:: 06/27/17 Subjective:: Nursing states that pt has not had a bowel movement. Reason For Visit: SEPSIS, UTI, NPO Physical Exam Vital Signs: Temp Pulse Resp BP Pulse Ox 97.9 F 97 18 104/68 97 06/27/17 07:11 06/27/17 08:30 06/27/17 08:30 06/27/17 07:11 06/27/17 08:30 Intake & Output 06/26/17 06/27/17 06/28/17 06:59 06:59 06:59 Intake Total 70 1500 Output Total 2250 750 Balance -2180 750 Weight 87.1 kg 74.2 kg General appearance: PRESENT: no acute distress, well-developed, well-nourished Head exam: PRESENT: atraumatic, normocephalic Eye exam: PRESENT: conjunctiva pink, EOMI. ABSENT: scleral icterus Ear exam: PRESENT: normal external ear exam Mouth exam: PRESENT: moist, tongue midline Neck exam: ABSENT: carotid bruit, JVD, lymphadenopathy, thyromegaly Respiratory exam: PRESENT: clear to auscultation eric. ABSENT: rales, rhonchi, wheezes Cardiovascular exam: PRESENT: RRR. ABSENT: diastolic murmur, rubs, systolic murmur Pulses: PRESENT: normal dorsalis pedis pul Vascular exam: PRESENT: normal capillary refill GI/Abdominal exam: PRESENT: other - +slightly distended, + bowel sounds, + GT in place Rectal exam: PRESENT: deferred Extremities exam: PRESENT: full ROM. ABSENT: calf tenderness, clubbing, pedal edema Neurological exam: PRESENT: alert, awake Psychiatric exam: PRESENT: appropriate affect, normal mood. ABSENT: homicidal ideation, suicidal ideation Skin exam: PRESENT: dry, intact, warm. ABSENT: cyanosis, rash Results Laboratory Results: 06/27/17 05:37 06/27/17 05:37 06/26/17 06/27/17 06/27/17 18:15 05:37 05:37 WBC 6.4 RBC 4.57 Hgb 12.6 L Hct 39.7 MCV 87 MCH 27.7 MCHC 31.8 L RDW 15.3 H Plt Count 135 L Seg Neutrophils % 87.8 H Lymphocytes % 7.3 L Monocytes % 4.7 Eosinophils % 0.1 Basophils % 0.1 Absolute Neutrophils 5.6 Absolute Lymphocytes 0.5 Absolute Monocytes 0.3 Absolute Eosinophils 0.0 Absolute Basophils 0.0 Sodium 146.8 H 149.3 H Potassium 4.4 4.4 Chloride 108 H 111 H Carbon Dioxide 23 26 Anion Gap 16 12 BUN 31 H 32 H Creatinine 1.22 1.10 Est GFR ( Amer) > 60 > 60 Est GFR (Non-Af Amer) 59 L > 60 Glucose 149 H 146 H Calcium 9.7 9.7 Magnesium 1.9 Total Bilirubin 0.3 AST 40 ALT 73 H Alkaline Phosphatase 50 Total Protein 6.2 L Albumin 3.3 L Impressions: Abdomen/Pelvis CT 06/25/17 14:01 IMPRESSION: NO SIGNIFICANT OR ACUTE FINDING IN THE ABDOMEN OR PELVIS ON CT SCAN WITH IV CONTRAST. Chest X-Ray 06/25/17 18:39 IMPRESSION: COPD. NO ACUTE RADIOGRAPHIC FINDING IN THE CHEST. Assessment & Plan - Diagnosis (1) Sepsis Qualifiers: Sepsis type: sepsis due to unspecified organism Qualified Code(s): A41.9 - Sepsis, unspecified organism Is this a current diagnosis for this admission?: Yes Plan: (Tachycardia, Hypotension, concern for UTI, Temp 100.3F) Secondary to Concern for UTI:Urine culture has demonstrated no growth. Pt's blood cultures are pending. Will await 48 hours and discontinue antibiotic and rule out sepsis. Pt does not appear septic. (2) Acute cystitis Is this a current diagnosis for this admission?: Yes Plan: Urine culture has demonstrated no growth. (3) CHF (congestive heart failure) Is this a current diagnosis for this admission?: Yes Plan: Chronic Diastolic Congestive Heart Failure: Pt was placed on IVFs. (4) CVA (cerebral vascular accident) Qualifiers: CVA mechanism: other Qualified Code(s): I63.8 - Other cerebral infarction Is this a current diagnosis for this admission?: Yes Plan: Supportive care. Will continue pt on Xarelto. (5) Urinary retention Is this a current diagnosis for this admission?: Yes Plan: Pickard anchored. Will consult urology. (6) Hypernatremia Is this a current diagnosis for this admission?: Yes Plan: Will place pt on D5W 75cc/hour. Will give D5W bolus. Will check CMP in a.m. (7) Schizoaffective disorder Qualifiers: Schizoaffective disorder type: unspecified Qualified Code(s): F25.9 - Schizoaffective disorder, unspecified Is this a current diagnosis for this admission?: Yes (8) Feeding difficulties Is this a current diagnosis for this admission?: Yes Plan: High Residuals: Will give soapsuds enema. Will consult GI. Will consult dietary. Will attempt to feed today slowly to see if patient is able to tolerate it. Nursing told to discontinue if patient has residuals greater than 30 cc (9) Constipation Is this a current diagnosis for this admission?: Yes Plan: We will give soapsuds enema. Will obtain KUB. (10) Dehydration Is this a current diagnosis for this admission?: Yes Plan: Continue to give IV fluids. - Time Time Spent with patient: 25-34 minutes
[2017-06-27] MEDS ORDERED: DEXTROSE 5%-WATER 1000 ML 1,000 ML IV ONE (11:30)
--- NOTE | 2017-06-27 11:31 | RADIOLOGY REPORT (SQ) ---
EXAM DESCRIPTION: KUB/ABDOMEN (SINGLE VIEW) COMPLETED DATE/TIME: 06/27/2017 11:22 am REASON FOR STUDY: Constipation COMPARISON: 06/01/2017. NUMBER OF VIEWS: One view. TECHNIQUE: Supine radiographic image of the abdomen acquired. LIMITATIONS: None. FINDINGS: BOWEL GAS PATTERN: Normal bowel gas pattern. No dilated loops. CALCIFICATIONS: No suspicious calcifications. SOFT TISSUES: No gross mass or suggestion of organomegaly. HARDWARE: None in the abdomen. BONES: No acute fracture. No worrisome bone lesions. OTHER: No other significant finding. IMPRESSION: NO RADIOGRAPHIC EVIDENCE FOR ACUTE ABDOMINAL DISEASE. TECHNICAL DOCUMENTATION: JOB ID: [id number] [employer]- All Rights Reserved Reading location - IP/workstation name: [email or web address]
--- NOTE | 2017-06-27 11:47 | PDOC CONSULTATION ---
Consultation Consult Date: 06/27/17 Attending physician:: DORIS DO Consult reason:: Retention History of Present Illness Admission Date/PCP: 06/25/17 17:22 FIDEL HANDY DO Patient complains of: Urinary retention History of Present Illness: 71/M PMHx expressive aphasia s/p CVA, DNR who was transferred to [facility] with hypotension/AMS. Work up revealed sepsis. De [place] Santos catheter placed 06/25/2017 and 1700 cc urine returned. Has had ~ 200 cc UOP per shift since yesterday. History obtained from nursing notes and transfer paperwork. During my evaluation the patient indicated that he previously underwent a prostate procedure, possibly TURP. Past Medical History Cardiac Medical History: Reports: Congestive Heart Failure, Myocardial Infarction, Hypertension Pulmonary Medical History: Reports: Chronic Obstructive Pulmonary Disease (COPD) Neurological Medical History: Reports: Ischemic CVA Renal/ Medical History: Reports: Other - ? previous TURP Psychiatric Medical History: Reports: Depression, Schizoaffective Disorder Past Surgical History Past Surgical History: unable to assess Past Surgical History: Reports: Other - ? previous TURP Social History Information Source: [facility] Records, Outside Facility Records Lives with: Care Home Smoking Status: Former Smoker Frequency of Alcohol Use: None Hx Recreational Drug Use: No Drugs: None Hx Prescription Drug Abuse: No - Advance Directive Resuscitation Status: Do Not Resuscitate Family History Family History: CAD, COPD, Hypertension Parental Family History Reviewed: No Children Family History Reviewed: No Sibling(s) Family History Reviewed.: No Medication/Allergy Home Medications: Aspirin [Aspirin 325 mg Tablet] 325 mg PEG DAILY 06/26/17 Atorvastatin Calcium [Lipitor 80 mg Tablet] 80 mg PEG QHS 06/26/17 Bisacodyl [Dulcolax 10 mg Supp.rect] 10 mg DC DAILYP PRN 06/26/17 Budesonide/Formoterol Fumarate [Symbicort HFA 160-4.5 mcg Inhaler 6 gm] 2 puff IH Q12 06/26/17 Escitalopram Oxalate [Lexapro 10 mg Tablet] 10 mg PEG DAILY 06/26/17 Ipratropium/Albuterol Sulfate [Duoneb 3 ml Ampul] 1 vial NEB Q6 06/26/17 Lansoprazole [Prevacid 30 mg Odt Tablet] 30 mg PEG DAILY 06/26/17 Metoprolol Tartrate [Lopressor 25 mg Tablet] 12.5 mg PEG Q12 06/26/17 Olanzapine [Zyprexa 5 mg Tablet] 5 mg PEG QHS 06/26/17 Rivaroxaban [Xarelto 15 mg Tablet] 15 mg PEG DAILY 06/26/17 Allergies/Adverse Reactions: levofloxacin Adverse Reaction (Verified 06/17/17 05:44) Hives Review of Systems ROS unobtainable: Due to mental status Physical Exam Vital Signs: Temp Pulse Resp BP Pulse Ox 97.9 F 97 18 104/68 97 06/27/17 07:11 06/27/17 08:30 06/27/17 08:30 06/27/17 07:11 06/27/17 08:30 Intake & Output 06/26/17 06/27/17 06/28/17 06:59 06:59 06:59 Intake Total 70 1500 Output Total 2250 750 Balance -2180 750 Weight 87.1 kg 74.2 kg General appearance: PRESENT: no acute distress Head exam: PRESENT: atraumatic Eye exam: PRESENT: conjunctiva pink Ear exam: PRESENT: normal external ear exam Mouth exam: PRESENT: dry mucosa Neck exam: ABSENT: JVD Respiratory exam: PRESENT: unlabored. ABSENT: accessory muscle use Cardiovascular exam: ABSENT: bradycardia Pulses: PRESENT: normal radial pulses GI/Abdominal exam: PRESENT: soft Rectal exam: PRESENT: deferred Gentrourinary exam: PRESENT: indwelling catheter. ABSENT: erythema, lacerations , scrotal swelling, testicular tenderness, urethral discharge Extremities exam: ABSENT: calf tenderness, +1 edema Musculoskeletal exam: ABSENT: ambulatory Neurological exam: PRESENT: awake Results Laboratory Results: 06/27/17 05:37 06/27/17 05:37 06/26/17 06/27/17 06/27/17 18:15 05:37 05:37 WBC 6.4 RBC 4.57 Hgb 12.6 L Hct 39.7 MCV 87 MCH 27.7 MCHC 31.8 L RDW 15.3 H Plt Count 135 L Seg Neutrophils % 87.8 H Lymphocytes % 7.3 L Monocytes % 4.7 Eosinophils % 0.1 Basophils % 0.1 Absolute Neutrophils 5.6 Absolute Lymphocytes 0.5 Absolute Monocytes 0.3 Absolute Eosinophils 0.0 Absolute Basophils 0.0 Sodium 146.8 H 149.3 H Potassium 4.4 4.4 Chloride 108 H 111 H Carbon Dioxide 23 26 Anion Gap 16 12 BUN 31 H 32 H Creatinine 1.22 1.10 Est GFR ( Amer) > 60 > 60 Est GFR (Non-Af Amer) 59 L > 60 Glucose 149 H 146 H Calcium 9.7 9.7 Magnesium 1.9 Total Bilirubin 0.3 AST 40 ALT 73 H Alkaline Phosphatase 50 Total Protein 6.2 L Albumin 3.3 L Impressions: Abdomen/Pelvis CT 06/25/17 14:01 IMPRESSION: NO SIGNIFICANT OR ACUTE FINDING IN THE ABDOMEN OR PELVIS ON CT SCAN WITH IV CONTRAST. Chest X-Ray 06/25/17 18:39 IMPRESSION: COPD. NO ACUTE RADIOGRAPHIC FINDING IN THE CHEST. KUB X-Ray 06/27/17 00:00 IMPRESSION: NO RADIOGRAPHIC EVIDENCE FOR ACUTE ABDOMINAL DISEASE. Status: Image reviewed by or - CT shows no pathology. Rest per radiology. Assessment & Plan - Diagnosis (1) Urinary retention Is this a current diagnosis for this admission?: Yes Plan: 1. Begin Flomax 0.4 mg PO QHS and Finasteride 5 mg PO daily. 2. Maintain indwelling de los santos x 2 weeks. 3. Follow up with [facility] for catheter removal/voiding trial. (2) Sepsis Qualifiers: Sepsis type: sepsis due to unspecified organism Qualified Code(s): A41.9 - Sepsis, unspecified organism Is this a current diagnosis for this admission?: Yes (3) UTI (urinary tract infection) Qualifiers: Urinary tract infection type: site unspecified Hematuria presence: without hematuria Qualified Code(s): N39.0 - Urinary tract infection, site not specified Is this a current diagnosis for this admission?: Yes - Time Time Spent: 30 to 50 Minutes Anticipated discharge: SNF Within: within 48 hours, within 72 hours - Inpatient Certification Based on my medical assessment, after consideration of the patient's comorbidities, presenting symptoms, or acuity I expect that the services needed warrant INPATIENT care.: Yes I certify that my determination is in accordance with my understanding of Medicare's requirements for reasonable and necessary INPATIENT services [42 CFR 412.3e].: Yes Medical Necessity: Failure to Improve With Outpatient Therapy, Need For IV Fluids - Plan Summary Plan Summary: See A&P
[2017-06-27] MEDS ORDERED: FINASTERIDE 5 MG TABLET PO ONE (14:00)
[2017-06-27] MEDS ORDERED: TAMSULOSIN HCL 0.4 MG CAP.SR.24H PO ONE (14:00)
--- NOTE | 2017-06-27 15:16 | RADIOLOGY REPORT (SQ) ---
EXAM DESCRIPTION: PICC INSERTION; FLUORO/CV PLACEMENT; U/S GUIDE FOR VASCULAR ACCESS COMPLETED DATE/TIME: 06/27/2017 2:45 pm REASON FOR STUDY: No IV access; IV ACCESS COMPARISON: None. FLUOROSCOPY TIME: 11 seconds. 2 images saved to PACS. TECHNIQUE: Fluoroscopic and ultrasound guided PICC placement. LIMITATIONS: None. PROCEDURE: After written consent and assessment were obtained, the patient was brought into the fluo roscopy room and place supine on the table. Ultrasound was used on the patient's left arm for PICC a ccess. The left arm was prepped and draped in a sterile fashion along with the ultrasound probe. The entry site was anesthetized with 1% lidocaine. A 21 gauge 7 cm needle was advanced through the skin a nd into the basilic vein under live ultrasound guidance. An ultrasound image was saved to PACS confi ing access site. A .018 guide wire was then inserted through the needle and into the venous system . The needle was the removed and an 11 blade scalpel was used to make a 1cm skin incision. A 5 fr pe el-away sheath was advanced over the wire and into the venous system. A measurement was then made usi ng the existing wire and live fluoroscopic guidance. The wire was then removed and the trimmed. The P ICC was advanced through the peel-away sheath and into the venous system. The peel-away sheath was re moved and the catheter was adhered to the patients arm with a stat lock. The catheter was then aspira mario alberto and flushed and a sterile bandage was placed over the access site. A fluoroscopic spot image was saved to PACS confirming the catheter tip within the superior vena cava. IMPRESSION: SUCCESSFUL PLACEMENT OF A 5 FR DUAL LUMEN 42 CM PICC IN THE LEFT BASILIC VEIN. COMMENT: Patient medication list reviewed: Yes- Quality ID# 130:Eligible professional attests to doc umenting in the medical record they obtained, updated, or reviewed the patient's current medications. . Quality ID 145: Final reports for procedures using fluoroscopy that document radiation exposure kirsten linden, or exposure time and number of fluorographic images (if radiation exposure indices are not avail able) Quality ID #76: The patient was prepped and draped using maximum sterile barrier technique including cap, mask, sterile gown, sterile gloves, a large sterile sheet, hand hygiene, and 2% Chlorhexidine fo r cutaneous antisepsis. When ultrasound is used, sterile ultrasound techniques are followed requiring sterile gel and sterile probes. TECHNICAL DOCUMENTATION: JOB ID: [id number] [employer]- All Rights Reserved Reading location - IP/workstation name: [facility]
[2017-06-27] MEDS ORDERED: NORMAL SALINE 10 ML SDV (AFTER EACH USE) IV PRN (15:36)
[2017-06-27] MEDS: ATORVASTATIN CALCIUM 80 MG TABLET PEG SCH (22:12)
[2017-06-27] MEDS: NORMAL SALINE 10 ML SDV (SCHEDULED) IV SCH (22:14)
[2017-06-28] MEDS: IPRATROPIUM/ALBUTEROL 0.5-2.5 MG/3 ML AMPUL NEB SCH ×6 (00:02→20:57)
[2017-06-28 05:29] LABS: ABSOLUTE LYMPHOCYTES (AUTO) 0.4 10^3/uL (0.5-4.7); ABSOLUTE MONOCYTES (AUTO) 0.3 10^3/uL (0.1-1.4); ABSOLUTE NEUT (AUTO) 7.5 10^3/uL (1.7-8.2); HEMATOCRIT 37.2 % (37.9-51.0); HEMOGLOBIN 11.7 g/dL (13.5-17.0); LYMPHOCYTES % (AUTO) 5.1 % (13-45); MEAN CORPUSCULAR HEMOGLOBIN 27.6 pg (27.0-33.4); MEAN CORPUSCULAR HGB CONC 31.4 g/dL (32.0-36.0); MEAN CORPUSCULAR VOLUME 88 fl (80-97); MONOCYTES % (AUTO) 3.8 % (3-13); PLATELET COUNT 143 10^3/uL (150-450); RED BLOOD COUNT 4.25 10^6/uL (4.35-5.55); RED CELL DISTRIBUTION WIDTH 15.2 % (11.5-14.0); SEGMENTED NEUTROPHILS % (AUTO) 91.1 % (42-78); TOTAL CELLS COUNTED % (AUTO) 100 %; WHITE BLOOD COUNT 8.2 10^3/uL (4.0-10.5)
[2017-06-28] MEDS: LANSOPRAZOLE 30 MG TAB.RAP.DR PEG SCH (05:32)
[2017-06-28 05:55] LABS: ALANINE AMINOTRANSFERASE 66 U/L (21-72); ALBUMIN 3.3 g/dL (3.5-5.0); ALKALINE PHOSPHATASE 49 U/L (38-126); ANION GAP 14 (5-19); ASPARTATE AMINO TRANSFERASE 33 U/L (17-59); BILIRUBIN,DIRECT 0.1 mg/dL (0.0-0.4); BILIRUBIN,TOTAL 0.2 mg/dL (0.2-1.3); BLOOD UREA NITROGEN 26 mg/dL (7-20); CALCIUM 9.5 mg/dL (8.4-10.2); CARBON DIOXIDE 23 mmol/L (22-30); CHLORIDE 105 mmol/L (98-107); GLUCOSE 108 mg/dL (75-110); POTASSIUM 4.2 mmol/L (3.6-5.0); SODIUM 142.2 mmol/L (137-145); TOTAL PROTEIN 5.6 g/dL (6.3-8.2)
[2017-06-28] MEDS: CEFTRIAXONE SODIUM 1,000 MG in NORMAL SALINE 100 ML IV SCH (13:21)
[2017-06-28] MEDS: BUDESONIDE/FORMOTEROL 160-4.5 MCG 60 PUFF/6 GM MDI IH SCH ×2 (13:22→22:32)
[2017-06-28] MEDS: OLANZAPINE 5 MG TABLET PEG SCH (13:23)
[2017-06-28] MEDS: METOPROLOL TARTRATE 25 MG TABLET PEG SCH ×2 (13:23→22:32)
[2017-06-28] MEDS: FINASTERIDE 5 MG TABLET PO SCH (13:23)
[2017-06-28] MEDS: ASPIRIN 325 MG TABLET PEG SCH (13:23)
[2017-06-28] MEDS: ESCITALOPRAM OXALATE 10 MG TABLET PEG SCH (13:23)
[2017-06-28] MEDS: RIVAROXABAN 15 MG TABLET PEG SCH (13:25)
[2017-06-28] MEDS: METHYLPREDNISOLONE INJ 125 MG/2 ML SDV IV SCH ×2 (13:26→22:32)
[2017-06-28] MEDS: NORMAL SALINE 10 ML SDV (SCHEDULED) IV SCH ×2 (13:35→22:33)
[2017-06-28] MEDS ORDERED: LACTULOSE SYRUP 20 GM/30 ML UDCUP NG ONE (13:57)
[2017-06-28] MEDS: IPRATROPIUM/ALBUTEROL 0.5-2.5 MG/3 ML AMPUL NEB PRN (14:56)
--- NOTE | 2017-06-28 15:12 | RADIOLOGY REPORT (SQ) ---
EXAM DESCRIPTION: KUB/ABDOMEN (SINGLE VIEW) COMPLETED DATE/TIME: 06/28/2017 2:59 pm REASON FOR STUDY: ileus COMPARISON: 06/27/2017 NUMBER OF VIEWS: One view. TECHNIQUE: Supine radiographic image of the abdomen acquired. LIMITATIONS: None. FINDINGS: BOWEL GAS PATTERN: There is considerable bowel gas, but the overall pattern is nonobstruct chayo. CALCIFICATIONS: No suspicious calcifications. SOFT TISSUES: No gross mass or suggestion of organomegaly. HARDWARE: Gastrostomy tube is present. BONES: No acute fracture. No worrisome bone lesions. OTHER: No other significant finding. IMPRESSION: NO RADIOGRAPHIC EVIDENCE FOR ACUTE ABDOMINAL DISEASE. TECHNICAL DOCUMENTATION: JOB ID: [id number] [employer]- All Rights Reserved Reading location - IP/workstation name: [email or web address]
[2017-06-28] MEDS: TAMSULOSIN HCL 0.4 MG CAP.SR.24H PO SCH (16:08)
[2017-06-28] MEDS: FLUCONAZOLE 200 MG/NS RTU 100 ML IV SCH (17:53)
[2017-06-28] MEDS ORDERED: FLUCONAZOLE 200 MG/NS RTU 100 MG in CONTAINER,EMPTY 1 EACH IV SCH (18:00)
[2017-06-28] MEDS: DEXTROSE 5%-1/2 NORMAL SALINE 1,000 ML IV PRN (20:45)
[2017-06-28] MEDS ORDERED: GLUCAGON,HUMAN RECOMB 1 MG INJ IM PRN (20:58)
[2017-06-28] MEDS ORDERED: DEXTROSE 50%-WATER 25 GM/50 ML DISP.SYRIN IV PRN ×2 (20:58)
[2017-06-28] MEDS ORDERED: DEXTROSE 40% GEL 15 GM TUBE PO PRN ×2 (20:58)
[2017-06-28] MEDS ORDERED: INSULIN LISPRO 100 UNIT/ML 3 ML VIAL SUBCUT PRN (20:58)
--- NOTE | 2017-06-28 21:12 | PDOC PROGRESS REPORT ---
Subjective Progress Note for:: 06/28/17 Subjective:: 71-year-old male who presented with sepsis secondary to urinary tract source. At present is growing to Reena species in his urine. We will continue him on his empiric Rocephin. We will add IV fluconazole. Patient also having high residuals and had his tube feeds stopped earlier in this admission. Will start him back on Glucerna trophic feedings. Monitor for residuals. Reason For Visit: SEPSIS, UTI, NPO Physical Exam Vital Signs: Temp Pulse Resp BP Pulse Ox 98.4 F 86 21 H 143/80 H 97 06/28/17 16:01 06/28/17 16:37 06/28/17 16:37 06/28/17 16:01 06/28/17 16:37 Intake & Output 06/27/17 06/28/17 06/29/17 06:59 06:59 06:59 Intake Total 1500 2300 782 Output Total 750 800 625 Balance 750 1500 157 Weight 74.2 kg 76.6 kg General appearance: PRESENT: no acute distress, obese Head exam: PRESENT: atraumatic, normocephalic Eye exam: PRESENT: EOMI, PERRLA. ABSENT: conjunctival injection Ear exam: PRESENT: normal external ear exam. ABSENT: bleeding Neck exam: PRESENT: full ROM. ABSENT: JVD, thyromegaly Respiratory exam: ABSENT: chest wall tenderness, rhonchi, stridor, tachypnea Cardiovascular exam: PRESENT: RRR. ABSENT: bradycardia, irregular rhythm Pulses: PRESENT: normal radial pulses GI/Abdominal exam: PRESENT: hypoactive bowel sounds. ABSENT: ascites, diminished bowel sounds, distended, hyperactive bowel sounds Rectal exam: ABSENT: laceration, mass Gentrourinary exam: ABSENT: ecchymosis, lesions Neurological exam: PRESENT: awake, CN II-XII grossly intact, aphasic Psychiatric exam: ABSENT: agitated, anxious, manic Skin exam: ABSENT: abrasion, cyanosis, dry, pallor Results Laboratory Results: 06/28/17 04:25 06/28/17 04:25 06/28/17 06/28/17 04:25 04:25 WBC 8.2 RBC 4.25 L Hgb 11.7 L Hct 37.2 L MCV 88 MCH 27.6 MCHC 31.4 L RDW 15.2 H Plt Count 143 L Seg Neutrophils % 91.1 H Lymphocytes % 5.1 L Monocytes % 3.8 Eosinophils % 0.0 Basophils % 0.0 Absolute Neutrophils 7.5 Absolute Lymphocytes 0.4 L Absolute Monocytes 0.3 Absolute Eosinophils 0.0 Absolute Basophils 0.0 Sodium 142.2 Potassium 4.2 Chloride 105 Carbon Dioxide 23 Anion Gap 14 BUN 26 H Creatinine 1.02 Est GFR ( Amer) > 60 Est GFR (Non-Af Amer) > 60 Glucose 108 Calcium 9.5 Total Bilirubin 0.2 AST 33 ALT 66 Alkaline Phosphatase 49 Total Protein 5.6 L Albumin 3.3 L Impressions: Abdomen/Pelvis CT 06/25/17 14:01 IMPRESSION: NO SIGNIFICANT OR ACUTE FINDING IN THE ABDOMEN OR PELVIS ON CT SCAN WITH IV CONTRAST. Chest X-Ray 06/25/17 18:39 IMPRESSION: COPD. NO ACUTE RADIOGRAPHIC FINDING IN THE CHEST. Guidance Fluoroscopy 06/27/17 00:00 IMPRESSION: SUCCESSFUL PLACEMENT OF A 5 FR DUAL LUMEN 42 CM PICC IN THE LEFT BASILIC VEIN. Interventional Vascular Procedure 06/27/17 00:00 IMPRESSION: SUCCESSFUL PLACEMENT OF A 5 FR DUAL LUMEN 42 CM PICC IN THE LEFT BASILIC VEIN. PICC Line Insertion 06/27/17 00:00 IMPRESSION: SUCCESSFUL PLACEMENT OF A 5 FR DUAL LUMEN 42 CM PICC IN THE LEFT BASILIC VEIN. KUB X-Ray 06/28/17 00:00 IMPRESSION: NO RADIOGRAPHIC EVIDENCE FOR ACUTE ABDOMINAL DISEASE. Assessment & Plan - Plan Summary Plan Summary: 1. Sepsis UTI source. On empiric Rocephin. 2. UTI Culture growing Reena albicans and Reena Dubliniensis Start IV fluconazole. 3. Diastolic Heart Failure. 4. CVA. continued on Xarelto 5. Urinary Retention. Urology following, de los santos in place. 6. Hypernatremia. resolved on supportive IVF 7. schizoaffective Dissorder. 8. Nutrition. will start trophic feeding and monitor residuals. 9. constipation. no ileus or SBO noted on KUB. 10. Dehydration. resolving.
[2017-06-28] MEDS: ATORVASTATIN CALCIUM 80 MG TABLET PEG SCH (22:33)
[2017-06-29] MEDS: IPRATROPIUM/ALBUTEROL 0.5-2.5 MG/3 ML AMPUL NEB SCH ×6 (00:24→21:19)
[2017-06-29 05:24] LABS: HEMATOCRIT 32.8 % (37.9-51.0); HEMOGLOBIN 10.5 g/dL (13.5-17.0); MEAN CORPUSCULAR HGB CONC 32.1 g/dL (32.0-36.0); MEAN CORPUSCULAR VOLUME 87 fl (80-97); PLATELET COUNT 105 10^3/uL (150-450); RED BLOOD COUNT 3.75 10^6/uL (4.35-5.55); RED CELL DISTRIBUTION WIDTH 14.9 % (11.5-14.0); WHITE BLOOD COUNT 5.7 10^3/uL (4.0-10.5)
[2017-06-29 05:53] LABS: ALBUMIN 2.1 g/dL (3.5-5.0); BLOOD UREA NITROGEN 18 mg/dL (7-20); CARBON DIOXIDE 19 mmol/L (22-30); GLUCOSE 295 mg/dL (75-110); PHOSPHORUS 2.8 mg/dL (2.5-4.5); POTASSIUM 3.2 mmol/L (3.6-5.0); SODIUM 138.8 mmol/L (137-145)
[2017-06-29 05:59] LABS: ANION GAP 8 (5-19); CHLORIDE 112 mmol/L (98-107)
[2017-06-29 06:03] LABS: CALCIUM 6.9 mg/dL (8.4-10.2)
[2017-06-29] MEDS: LANSOPRAZOLE 30 MG TAB.RAP.DR PEG SCH (06:39)
[2017-06-29] MEDS: ASPIRIN 325 MG TABLET PEG SCH (09:25)
[2017-06-29] MEDS: RIVAROXABAN 15 MG TABLET PEG SCH (09:25)
[2017-06-29] MEDS: FINASTERIDE 5 MG TABLET PO SCH (09:26)
[2017-06-29] MEDS: METOPROLOL TARTRATE 25 MG TABLET PEG SCH ×2 (09:26→21:06)
[2017-06-29] MEDS: OLANZAPINE 5 MG TABLET PEG SCH (09:26)
[2017-06-29] MEDS: ESCITALOPRAM OXALATE 10 MG TABLET PEG SCH (09:26)
[2017-06-29] MEDS: CEFTRIAXONE SODIUM 1,000 MG in NORMAL SALINE 100 ML IV SCH (09:27)
[2017-06-29] MEDS: SCOPOLAMINE HYDROBROMIDE 1.5 MG PATCH.TD72 TD SCH (09:27)
[2017-06-29] MEDS: METHYLPREDNISOLONE INJ 125 MG/2 ML SDV IV SCH ×2 (09:28→21:07)
[2017-06-29] MEDS: NORMAL SALINE 10 ML SDV (SCHEDULED) IV SCH ×2 (09:28→21:08)
[2017-06-29] MEDS: BUDESONIDE/FORMOTEROL 160-4.5 MCG 60 PUFF/6 GM MDI IH SCH ×2 (09:34→21:07)
--- NOTE | 2017-06-29 14:35 | RADIOLOGY REPORT (SQ) ---
EXAM DESCRIPTION: CHEST SINGLE VIEW COMPLETED DATE/TIME: 06/29/2017 2:00 pm REASON FOR STUDY: pneumonia COMPARISON: 06/25/2017. NUMBER OF VIEWS: One view. TECHNIQUE: Single frontal radiographic view of the chest acquired. LIMITATIONS: None. FINDINGS: LUNGS AND PLEURA: No opacities, masses or pneumothorax. No pleural effusion. Attenuated bl ood vessels and flattened abhijit-diaphragms. MEDIASTINUM AND HILAR STRUCTURES: No masses. Contour normal. HEART AND VASCULAR STRUCTURES: Heart normal in size. Normal vasculature. BONES: No acute findings. HARDWARE: PICC line. OTHER: No other significant finding. IMPRESSION: COPD. NO ACUTE RADIOGRAPHIC FINDING IN THE CHEST. TECHNICAL DOCUMENTATION: JOB ID: [id number] [employer]- All Rights Reserved Reading location - IP/workstation name: [email or web address]
--- NOTE | 2017-06-29 15:47 | PDOC PROGRESS REPORT ---
Subjective Progress Note for:: 06/29/17 Subjective:: 71-year-old male who presented with sepsis secondary to urinary tract source. Reena species growing growing in his urine. Tolerated Glucerna trophic feeds well. Will increase TF rate to 40cc/hr. Will increase Free Water to 150cc/q4h, and d/c IVF support. Sodium level is in normal range. Continue on empiric Rocephin and Fluconazole. Reason For Visit: SEPSIS, UTI, NPO Physical Exam Vital Signs: Temp Pulse Resp BP Pulse Ox 97.9 F 95 18 135/110 H 97 06/29/17 12:00 06/29/17 12:00 06/29/17 12:00 06/29/17 12:00 06/29/17 12:00 Intake & Output 06/28/17 06/29/17 06/30/17 06:59 06:59 06:59 Intake Total 2300 2232 Output Total 800 1075 300 Balance 1500 1157 -300 Weight 76.6 kg 76.6 kg General appearance: PRESENT: no acute distress, cooperative Head exam: PRESENT: atraumatic, normocephalic Eye exam: PRESENT: EOMI, PERRLA Ear exam: PRESENT: normal external ear exam Mouth exam: PRESENT: moist, neck supple, tongue midline Neck exam: ABSENT: JVD, thyromegaly Respiratory exam: PRESENT: rhonchi. ABSENT: accessory muscle use, crackles, rales, wheezes Cardiovascular exam: PRESENT: RRR, +S1, +S2. ABSENT: diastolic murmur, systolic murmur Pulses: PRESENT: normal radial pulses Vascular exam: PRESENT: normal capillary refill. ABSENT: pallor GI/Abdominal exam: PRESENT: normal bowel sounds, soft. ABSENT: diminished bowel sounds, distended, mass, Florian's sign, rigid Extremities exam: ABSENT: calf tenderness, joint swelling, tenderness Musculoskeletal exam: PRESENT: full ROM. ABSENT: ambulatory Neurological exam: PRESENT: alert, oriented to person, CN II-XII grossly intact Psychiatric exam: ABSENT: anxious, manic Focused psych exam: ABSENT: catatonic, flight of ideas, pressured speech Skin exam: ABSENT: abrasion, dry, normal color, petechiae Results Laboratory Results: 06/29/17 04:41 06/29/17 04:41 06/29/17 06/29/17 04:41 04:41 WBC 5.7 RBC 3.75 L Hgb 10.5 L Hct 32.8 L MCV 87 MCH 28.0 MCHC 32.1 RDW 14.9 H Plt Count 105 L Sodium 138.8 Potassium 3.2 L Chloride 112 H Carbon Dioxide 19 L Anion Gap 8 BUN 18 Creatinine 0.68 Est GFR ( Amer) > 60 Est GFR (Non-Af Amer) > 60 Glucose 295 H Calcium 6.9 L* Phosphorus 2.8 Albumin 2.1 L Impressions: Abdomen/Pelvis CT 06/25/17 14:01 IMPRESSION: NO SIGNIFICANT OR ACUTE FINDING IN THE ABDOMEN OR PELVIS ON CT SCAN WITH IV CONTRAST. Guidance Fluoroscopy 06/27/17 00:00 IMPRESSION: SUCCESSFUL PLACEMENT OF A 5 FR DUAL LUMEN 42 CM PICC IN THE LEFT BASILIC VEIN. Interventional Vascular Procedure 06/27/17 00:00 IMPRESSION: SUCCESSFUL PLACEMENT OF A 5 FR DUAL LUMEN 42 CM PICC IN THE LEFT BASILIC VEIN. PICC Line Insertion 06/27/17 00:00 IMPRESSION: SUCCESSFUL PLACEMENT OF A 5 FR DUAL LUMEN 42 CM PICC IN THE LEFT BASILIC VEIN. KUB X-Ray 06/28/17 00:00 IMPRESSION: NO RADIOGRAPHIC EVIDENCE FOR ACUTE ABDOMINAL DISEASE. Chest X-Ray 06/29/17 00:00 IMPRESSION: COPD. NO ACUTE RADIOGRAPHIC FINDING IN THE CHEST. Assessment & Plan - Plan Summary Plan Summary: 1. Sepsis resolved UTI source. On empiric Rocephin and Fluconazole. 2. UTI Urine Culture growing Reena albicans and Reena Dubliniensis continue IV fluconazole and Rocephin 3. Diastolic Heart Failure. euvolemic, no diuretics on home medicine list d/c IVF, monitor 4. Hypokalemia. giving KCl fluid 40mEq through NG tube 5. Hypocalcemia. Calcium albumin corrected: 8.4 check Ionized calcium will start calcium supplements per NG tube. 4. CVA. supportive care 5. Urinary Retention. Urology following, de los santos in place. 6. Hypernatremia. resolved on supportive IVF d/c IVF, increase free water to 150cc/q4h flushes 7. schizoaffective Dissorder. supportive care. 8. Nutrition. did well with trophic feeding. Increase feeding to 40cc/hr, continue to monitor. 9. constipation. no ileus or SBO noted on KUB. 10. Dehydration. resolving.
[2017-06-29] MEDS: TAMSULOSIN HCL 0.4 MG CAP.SR.24H PO SCH (16:52)
[2017-06-29] MEDS: FLUCONAZOLE 200 MG/NS RTU 100 ML IV SCH (17:14)
[2017-06-29] MEDS: ACETAMINOPHEN 325 MG TABLET PEG PRN (17:53)
[2017-06-29] MEDS ORDERED: POTASSIUM CHLORIDE 20 MEQ/15 ML UDCUP NG ONE (20:45)
[2017-06-29] MEDS: CALCIUM CARBONATE 250 MG/VITAMIN D3 125 UNIT TABLET NG SCH (21:06)
[2017-06-29] MEDS: ATORVASTATIN CALCIUM 80 MG TABLET PEG SCH (21:07)
[2017-06-30] MEDS: IPRATROPIUM/ALBUTEROL 0.5-2.5 MG/3 ML AMPUL NEB SCH ×6 (00:55→20:50)
[2017-06-30 05:52] LABS: HEMATOCRIT 35.1 % (37.9-51.0); HEMOGLOBIN 11.3 g/dL (13.5-17.0); MEAN CORPUSCULAR HEMOGLOBIN 27.5 pg (27.0-33.4); MEAN CORPUSCULAR HGB CONC 32.1 g/dL (32.0-36.0); MEAN CORPUSCULAR VOLUME 86 fl (80-97); PLATELET COUNT 112 10^3/uL (150-450); WHITE BLOOD COUNT 4.9 10^3/uL (4.0-10.5)
[2017-06-30 06:04] LABS: ALBUMIN 2.4 g/dL (3.5-5.0); ANION GAP 6 (5-19); BLOOD UREA NITROGEN 21 mg/dL (7-20); CALCIUM 8.2 mg/dL (8.4-10.2); CARBON DIOXIDE 22 mmol/L (22-30); CHLORIDE 114 mmol/L (98-107); GLUCOSE 119 mg/dL (75-110); PHOSPHORUS 2.1 mg/dL (2.5-4.5); POTASSIUM 3.9 mmol/L (3.6-5.0); SODIUM 141.5 mmol/L (137-145)
[2017-06-30] MEDS: LANSOPRAZOLE 30 MG TAB.RAP.DR PEG SCH (06:45)
[2017-06-30] MEDS: METOPROLOL TARTRATE 25 MG TABLET PEG SCH (10:07)
[2017-06-30] MEDS: ESCITALOPRAM OXALATE 10 MG TABLET PEG SCH (10:07)
[2017-06-30] MEDS: CALCIUM CARBONATE 250 MG/VITAMIN D3 125 UNIT TABLET NG SCH (10:07)
[2017-06-30] MEDS: ASPIRIN 325 MG TABLET PEG SCH (10:08)
[2017-06-30] MEDS: RIVAROXABAN 15 MG TABLET PEG SCH (10:08)
[2017-06-30] MEDS: FINASTERIDE 5 MG TABLET PO SCH (10:08)
[2017-06-30] MEDS: METHYLPREDNISOLONE INJ 125 MG/2 ML SDV IV SCH (10:10)
[2017-06-30] MEDS: NORMAL SALINE 10 ML SDV (SCHEDULED) IV SCH (10:14)
[2017-06-30] MEDS: OLANZAPINE 5 MG TABLET PEG SCH (10:14)
[2017-06-30] MEDS: CEFTRIAXONE SODIUM 1,000 MG in NORMAL SALINE 100 ML IV SCH (10:14)
[2017-06-30] MEDS: BUDESONIDE/FORMOTEROL 160-4.5 MCG 60 PUFF/6 GM MDI IH SCH (12:28)
[2017-06-30] MEDS: TAMSULOSIN HCL 0.4 MG CAP.SR.24H PO SCH (12:28)
[2017-06-30] MEDS ORDERED: FLUCONAZOLE 200 MG/NS RTU 100 ML IV ONE (18:30)
[2017-06-30] MEDS ORDERED: POTASSIUM CHLORIDE 20 MEQ/15 ML UDCUP NG ONE (18:35)
[2017-06-30] MEDS ORDERED: BISACODYL 10 MG SUPP.RECT PR ONE (18:57)
[2017-06-30] MEDS: ACETAMINOPHEN 325 MG TABLET PEG PRN (18:57)
[2017-06-30] MEDS: FLUCONAZOLE 100 MG TABLET PEG SCH (18:57)
--- NOTE | 2017-06-30 18:58 | PDOC PROGRESS REPORT ---
Subjective Progress Note for:: 06/30/17 Subjective:: 71-year-old male who presented with sepsis secondary to urinary tract source. Reena species growing growing in his urine. Patient indicated to nursing that his abdomen was in discomfort on 40cc/hr of TF. No significant residuals, but patient had quiet bowel sounds. Tolerated Glucerna trophic feeds well. Will increase TF rate to 40cc/hr. Will increase Free Water to 150cc/q4h, and d/c IVF support. Sodium level is in normal range. Continue on empiric Rocephin and Fluconazole. Reason For Visit: SEPSIS, UTI, NPO Physical Exam Vital Signs: Temp Pulse Resp BP Pulse Ox 98.5 F 78 16 158/82 H 97 06/30/17 15:30 06/30/17 15:30 06/30/17 15:30 06/30/17 15:30 06/30/17 15:30 Intake & Output 06/29/17 06/30/17 07/01/17 06:59 06:59 06:59 Intake Total 2232 1930 0 Output Total 1075 1000 200 Balance 1157 930 -200 Weight 76.6 kg 76.3 kg General appearance: PRESENT: no acute distress. ABSENT: mild distress, morbidly obese Head exam: PRESENT: atraumatic, normocephalic Eye exam: PRESENT: EOMI, PERRLA. ABSENT: conjunctiva pink Ear exam: PRESENT: normal external ear exam Mouth exam: PRESENT: moist, neck supple, tongue midline Neck exam: ABSENT: tenderness, thyromegaly Respiratory exam: ABSENT: accessory muscle use, rales, rhonchi, wheezes Cardiovascular exam: PRESENT: RRR, +S1, +S2. ABSENT: diastolic murmur, systolic murmur Pulses: PRESENT: normal radial pulses, normal dorsalis pedis pul GI/Abdominal exam: PRESENT: distended - mild and soft, soft. ABSENT: firm, guarding, mass, Florian's sign, rigid Extremities exam: ABSENT: joint swelling, pedal edema Musculoskeletal exam: PRESENT: full ROM. ABSENT: normal inspection Neurological exam: PRESENT: alert, oriented to person, oriented to place, oriented to time, CN II-XII grossly intact Psychiatric exam: ABSENT: agitated, anxious, flat affect Focused psych exam: ABSENT: delusional, psychomotor agitation Skin exam: ABSENT: cyanosis, dry, pallor Results Laboratory Results: 06/30/17 05:44 06/30/17 05:44 06/30/17 06/30/17 06/30/17 05:44 05:44 05:44 WBC 4.9 RBC 4.10 L Hgb 11.3 L Hct 35.1 L MCV 86 MCH 27.5 MCHC 32.1 RDW 15.0 H Plt Count 112 L Sodium 141.5 Potassium 3.9 Chloride 114 H Carbon Dioxide 22 Anion Gap 6 BUN 21 H Creatinine 0.79 Est GFR ( Amer) > 60 Est GFR (Non-Af Amer) > 60 Glucose 119 H Calcium 8.2 L Ionized Calcium Kanwal 1.16 Phosphorus 2.1 L Albumin 2.4 L Impressions: Abdomen/Pelvis CT 06/25/17 14:01 IMPRESSION: NO SIGNIFICANT OR ACUTE FINDING IN THE ABDOMEN OR PELVIS ON CT SCAN WITH IV CONTRAST. Guidance Fluoroscopy 06/27/17 00:00 IMPRESSION: SUCCESSFUL PLACEMENT OF A 5 FR DUAL LUMEN 42 CM PICC IN THE LEFT BASILIC VEIN. Interventional Vascular Procedure 06/27/17 00:00 IMPRESSION: SUCCESSFUL PLACEMENT OF A 5 FR DUAL LUMEN 42 CM PICC IN THE LEFT BASILIC VEIN. PICC Line Insertion 06/27/17 00:00 IMPRESSION: SUCCESSFUL PLACEMENT OF A 5 FR DUAL LUMEN 42 CM PICC IN THE LEFT BASILIC VEIN. KUB X-Ray 06/28/17 00:00 IMPRESSION: NO RADIOGRAPHIC EVIDENCE FOR ACUTE ABDOMINAL DISEASE. Chest X-Ray 06/29/17 00:00 IMPRESSION: COPD. NO ACUTE RADIOGRAPHIC FINDING IN THE CHEST. Assessment & Plan - Plan Summary Plan Summary: 1. Sepsis resolved UTI source. On empiric Fluconazole, Day 3/5 Completed Course of Rocephin 2. UTI Urine Culture growing Reena albicans and Reena Dubliniensis continue IV fluconazole at present 3. Diastolic Heart Failure. euvolemic, no diuretics on home medicine list d/c IVF, monitor 4. Hypokalemia. giving KCl fluid 40mEq through NG tube 5. Hypocalcemia, ruled out Calcium albumin corrected: 8.4 low normal range of ionized calcium on calcium supplements 4. CVA. supportive care 5. Urinary Retention. Urology following, de [place] in place. [place] plan per Urology 6. Hypernatremia. resolved on supportive IVF on free water to 150cc/q4h flushes, monitor 7. schizoaffective Dissorder. supportive care. 8. Nutrition. did well with trophic feeding. hold TF due to patient complaining of Abd pain. check KUB for abd discomfort. if no ileus or SBO, will restart trophic feeds 9. constipation. no ileus or SBO noted on KUB. give bisacodyl suppository 10. Dehydration. resolved.
--- NOTE | 2017-06-30 19:39 | RADIOLOGY REPORT (SQ) ---
EXAM DESCRIPTION: KUB/ABDOMEN (SINGLE VIEW) COMPLETED DATE/TIME: 06/30/2017 7:15 pm REASON FOR STUDY: abdominal pain COMPARISON: 06/28/2017 NUMBER OF VIEWS: One view. TECHNIQUE: Supine radiographic image of the abdomen acquired. LIMITATIONS: None. FINDINGS: BOWEL GAS PATTERN: Normal bowel gas pattern. No dilated loops. CALCIFICATIONS: No suspicious calcifications. SOFT TISSUES: No gross mass or suggestion of organomegaly. HARDWARE: PERCUTANEOUS GASTROSTOMY TUBE. BONES: No acute fracture. No worrisome bone lesions. OTHER: No other significant finding. IMPRESSION: NO RADIOGRAPHIC EVIDENCE FOR ACUTE ABDOMINAL DISEASE. TECHNICAL DOCUMENTATION: JOB ID: [id number] [employer]- All Rights Reserved Reading location - IP/workstation name: [email or web address]
[2017-06-30] MEDS ORDERED: NA PHOS,M-B/NA PHOS,DI-BA (ADULT) 133 ML ENEMA PR ONE (21:30)
[2017-07-01] MEDS: IPRATROPIUM/ALBUTEROL 0.5-2.5 MG/3 ML AMPUL NEB SCH ×6 (00:27→20:48)
[2017-07-01] MEDS: METHYLPREDNISOLONE INJ 125 MG/2 ML SDV IV SCH ×2 (01:03→09:58)
[2017-07-01] MEDS: BUDESONIDE/FORMOTEROL 160-4.5 MCG 60 PUFF/6 GM MDI IH SCH ×3 (01:04→23:26)
[2017-07-01] MEDS: NORMAL SALINE 10 ML SDV (SCHEDULED) IV SCH ×2 (01:04→09:39)
[2017-07-01] MEDS: ATORVASTATIN CALCIUM 80 MG TABLET PEG SCH ×2 (02:38→23:25)
[2017-07-01] MEDS: CALCIUM CARBONATE 250 MG/VITAMIN D3 125 UNIT TABLET NG SCH ×3 (02:38→23:26)
[2017-07-01] MEDS: METOPROLOL TARTRATE 25 MG TABLET PEG SCH ×3 (02:38→23:25)
[2017-07-01] MEDS: LANSOPRAZOLE 30 MG TAB.RAP.DR PEG SCH (06:26)
[2017-07-01 07:19] LABS: HEMATOCRIT 40.9 % (37.9-51.0); HEMOGLOBIN 13.1 g/dL (13.5-17.0); MEAN CORPUSCULAR HEMOGLOBIN 27.6 pg (27.0-33.4); MEAN CORPUSCULAR VOLUME 86 fl (80-97); PLATELET COUNT 121 10^3/uL (150-450); RED BLOOD COUNT 4.75 10^6/uL (4.35-5.55); RED CELL DISTRIBUTION WIDTH 15.1 % (11.5-14.0); WHITE BLOOD COUNT 5.6 10^3/uL (4.0-10.5)
[2017-07-01 07:35] LABS: ALBUMIN 3.3 g/dL (3.5-5.0); ANION GAP 9 (5-19); BLOOD UREA NITROGEN 28 mg/dL (7-20); CALCIUM 9.8 mg/dL (8.4-10.2); CARBON DIOXIDE 27 mmol/L (22-30); CHLORIDE 107 mmol/L (98-107); GLUCOSE 120 mg/dL (75-110); PHOSPHORUS 3.4 mg/dL (2.5-4.5); POTASSIUM 4.7 mmol/L (3.6-5.0); SODIUM 142.8 mmol/L (137-145)
[2017-07-01] MEDS: ASPIRIN 325 MG TABLET PEG SCH (09:56)
[2017-07-01] MEDS: RIVAROXABAN 15 MG TABLET PEG SCH (09:56)
[2017-07-01] MEDS: OLANZAPINE 5 MG TABLET PEG SCH (09:57)
[2017-07-01] MEDS: FINASTERIDE 5 MG TABLET PO SCH (09:57)
[2017-07-01] MEDS: ESCITALOPRAM OXALATE 10 MG TABLET PEG SCH (09:59)
[2017-07-01] MEDS: ONDANSETRON HCL INJ/PF 4 MG/2 ML SDV IV PRN (10:14)
[2017-07-01] MEDS: TAMSULOSIN HCL 0.4 MG CAP.SR.24H PO SCH (13:36)
--- NOTE | 2017-07-01 14:40 | PDOC PROGRESS REPORT ---
Subjective Progress Note for:: 07/01/17 Subjective:: Patient is a 71-year-old male who has suffered 2 previous strokes. He has been admitted with sepsis secondary to urinary tract infection. Currently, we are having some problems with abdominal distention and abdominal pain. Patient is aphasic. Reason For Visit: SEPSIS, UTI, NPO Physical Exam Vital Signs: Temp Pulse Resp BP Pulse Ox 97.9 F 67 16 150/95 H 96 07/01/17 11:24 07/01/17 12:43 07/01/17 12:43 07/01/17 11:24 07/01/17 12:43 Intake & Output 06/30/17 07/01/17 07/02/17 06:59 06:59 06:59 Intake Total 1930 680 Output Total 1000 1150 Balance 930 -470 Weight 76.3 kg 76.3 kg Additional comments: The patient appears older than his stated age. He appears to be in poor health. The patient is a phasic. However, he does appear to comprehend and can follow commands. His facial appearance is unremarkable. His lungs are clear both anteriorly and posteriorly. His cardiac exam is regular without murmurs, gallops or rubs. The abdomen is diffusely distended and diffusely tender. The PEG tube site looks clean dry and intact. Lower extremities are unremarkable. He does not have any pitting edema. There are no skin lesions or rashes in the visible areas. Results Laboratory Results: 07/01/17 06:35 07/01/17 06:35 07/01/17 07/01/17 06:35 06:35 WBC 5.6 RBC 4.75 Hgb 13.1 L Hct 40.9 MCV 86 MCH 27.6 MCHC 32.0 RDW 15.1 H Plt Count 121 L Sodium 142.8 Potassium 4.7 Chloride 107 Carbon Dioxide 27 Anion Gap 9 BUN 28 H Creatinine 0.98 Est GFR ( Amer) > 60 Est GFR (Non-Af Amer) > 60 Glucose 120 H Calcium 9.8 Phosphorus 3.4 Albumin 3.3 L Impressions: Abdomen/Pelvis CT 06/25/17 14:01 IMPRESSION: NO SIGNIFICANT OR ACUTE FINDING IN THE ABDOMEN OR PELVIS ON CT SCAN WITH IV CONTRAST. Guidance Fluoroscopy 06/27/17 00:00 IMPRESSION: SUCCESSFUL PLACEMENT OF A 5 FR DUAL LUMEN 42 CM PICC IN THE LEFT BASILIC VEIN. Interventional Vascular Procedure 06/27/17 00:00 IMPRESSION: SUCCESSFUL PLACEMENT OF A 5 FR DUAL LUMEN 42 CM PICC IN THE LEFT BASILIC VEIN. PICC Line Insertion 06/27/17 00:00 IMPRESSION: SUCCESSFUL PLACEMENT OF A 5 FR DUAL LUMEN 42 CM PICC IN THE LEFT BASILIC VEIN. Chest X-Ray 06/29/17 00:00 IMPRESSION: COPD. NO ACUTE RADIOGRAPHIC FINDING IN THE CHEST. KUB X-Ray 06/30/17 00:00 IMPRESSION: NO RADIOGRAPHIC EVIDENCE FOR ACUTE ABDOMINAL DISEASE. Assessment & Plan - Diagnosis (1) Sepsis Qualifiers: Sepsis type: sepsis due to unspecified organism Qualified Code(s): A41.9 - Sepsis, unspecified organism Is this a current diagnosis for this admission?: Yes Plan: Rocephin has been completed. Today is day 5 of fluconazole. (2) UTI (urinary tract infection) Qualifiers: Urinary tract infection type: site unspecified Hematuria presence: without hematuria Qualified Code(s): N39.0 - Urinary tract infection, site not specified Is this a current diagnosis for this admission?: Yes Plan: Culture grew Reena albicans and dubliniensis (3) Constipation Is this a current diagnosis for this admission?: Yes Plan: Patient has been requiring intermittent use of suppositories (4) Dehydration Is this a current diagnosis for this admission?: Yes Plan: Resolved (5) Urinary retention Is this a current diagnosis for this admission?: Yes Plan: Continue Pickard (6) CVA (cerebral vascular accident) Qualifiers: CVA mechanism: other Qualified Code(s): I63.8 - Other cerebral infarction Is this a current diagnosis for this admission?: Yes Plan: Continue supportive care (7) Diastolic congestive heart failure Qualifiers: Heart failure chronicity: chronic Qualified Code(s): I50.32 - Chronic diastolic (congestive) heart failure Plan: IV fluids have been discontinued (8) Schizoaffective disorder Qualifiers: Schizoaffective disorder type: unspecified Qualified Code(s): F25.9 - Schizoaffective disorder, unspecified Is this a current diagnosis for this admission?: Yes Plan: Continue supportive care - Time Time Spent with patient: 25-34 minutes - Inpatient Certification Medical Necessity: Need Close Monitoring Due to Risk of Patient Decompensation, Need for IV Antibiotics, Risk of Complication if Not Cared For in Hospital - Plan Summary Plan Summary: Currently, the patient still having intermittent abdominal pain. KUB yesterday was unremarkable. Patient may just be constipated. If symptoms persist will order additional workup.
[2017-07-01] MEDS: FLUCONAZOLE 200 MG/NS RTU 100 ML IV SCH (18:15)
[2017-07-01] MEDS: PREDNISONE 5 MG TABLET PO SCH (18:15)
[2017-07-01] MEDS: FLUCONAZOLE 100 MG TABLET PEG SCH (18:17)
[2017-07-02] MEDS: NORMAL SALINE 10 ML SDV (SCHEDULED) IV SCH ×3 (00:17→23:20)
[2017-07-02] MEDS: IPRATROPIUM/ALBUTEROL 0.5-2.5 MG/3 ML AMPUL NEB SCH ×6 (00:34→20:19)
[2017-07-02] MEDS: LANSOPRAZOLE 30 MG TAB.RAP.DR PEG SCH (06:39)
[2017-07-02] MEDS: ASPIRIN 325 MG TABLET PEG SCH (10:42)
[2017-07-02] MEDS: PREDNISONE 5 MG TABLET PO SCH ×2 (10:42→17:56)
[2017-07-02] MEDS: CALCIUM CARBONATE 250 MG/VITAMIN D3 125 UNIT TABLET NG SCH ×2 (10:42→23:08)
[2017-07-02] MEDS: RIVAROXABAN 15 MG TABLET PEG SCH (10:43)
[2017-07-02] MEDS: OLANZAPINE 5 MG TABLET PEG SCH (10:43)
[2017-07-02] MEDS: METOPROLOL TARTRATE 25 MG TABLET PEG SCH ×2 (10:44→23:08)
[2017-07-02] MEDS: ESCITALOPRAM OXALATE 10 MG TABLET PEG SCH (10:47)
[2017-07-02] MEDS: FINASTERIDE 5 MG TABLET PO SCH (10:47)
[2017-07-02] MEDS: SCOPOLAMINE HYDROBROMIDE 1.5 MG PATCH.TD72 TD SCH (10:50)
[2017-07-02] MEDS: BUDESONIDE/FORMOTEROL 160-4.5 MCG 60 PUFF/6 GM MDI IH SCH ×2 (10:51→23:07)
[2017-07-02] MEDS ORDERED: LORAZEPAM 1 MG TABLET PO PRN (12:15)
--- NOTE | 2017-07-02 14:36 | PDOC PROGRESS REPORT ---
Subjective Progress Note for:: 07/02/17 Subjective:: Patient is a 71-year-old male who has suffered 2 previous strokes. He has been admitted with sepsis secondary to urinary tract infection. Currently, we are having some problems with abdominal distention and abdominal pain. Patient is aphasic. The abdominal pain resolved after Maalox was given yesterday. Reason For Visit: SEPSIS, UTI, NPO Physical Exam Vital Signs: Temp Pulse Resp BP Pulse Ox 97.5 F 71 18 140/87 H 96 07/02/17 10:55 07/02/17 11:56 07/02/17 11:56 07/02/17 10:55 07/02/17 11:56 Intake & Output 07/01/17 07/02/17 07/03/17 06:59 06:59 06:59 Intake Total 680 345 Output Total 1150 800 300 Balance -470 -455 -300 Weight 76.3 kg 76.2 kg Additional comments: The patient appeared anxious this morning. He is very difficult to understand but he appeared to tell me that it was too hot in the room and he wanted the air on. Otherwise, his facial appearance is unremarkable with the exception of poor dentition. He was noted to have rales on his physical exam within the lung vasques today. These are new from yesterday. His cardiac exam is regular without murmurs, gallops or rubs. The abdomen is minimally distended but soft. Bowel sounds are noted. The PEG tube site looks good. His lower extremities do not demonstrate any pitting edema. The skin is clean, warm, dry and intact without lesions or rashes. Results Laboratory Results: 07/01/17 06:35 07/01/17 06:35 Impressions: Abdomen/Pelvis CT 06/25/17 14:01 IMPRESSION: NO SIGNIFICANT OR ACUTE FINDING IN THE ABDOMEN OR PELVIS ON CT SCAN WITH IV CONTRAST. Guidance Fluoroscopy 06/27/17 00:00 IMPRESSION: SUCCESSFUL PLACEMENT OF A 5 FR DUAL LUMEN 42 CM PICC IN THE LEFT BASILIC VEIN. Interventional Vascular Procedure 06/27/17 00:00 IMPRESSION: SUCCESSFUL PLACEMENT OF A 5 FR DUAL LUMEN 42 CM PICC IN THE LEFT BASILIC VEIN. PICC Line Insertion 06/27/17 00:00 IMPRESSION: SUCCESSFUL PLACEMENT OF A 5 FR DUAL LUMEN 42 CM PICC IN THE LEFT BASILIC VEIN. Chest X-Ray 06/29/17 00:00 IMPRESSION: COPD. NO ACUTE RADIOGRAPHIC FINDING IN THE CHEST. KUB X-Ray 06/30/17 00:00 IMPRESSION: NO RADIOGRAPHIC EVIDENCE FOR ACUTE ABDOMINAL DISEASE. Assessment & Plan - Diagnosis (1) Sepsis Qualifiers: Sepsis type: sepsis due to unspecified organism Qualified Code(s): A41.9 - Sepsis, unspecified organism Is this a current diagnosis for this admission?: Yes Plan: Rocephin has been completed. Today is day 6 of fluconazole. (2) UTI (urinary tract infection) Qualifiers: Urinary tract infection type: site unspecified Hematuria presence: without hematuria Qualified Code(s): N39.0 - Urinary tract infection, site not specified Is this a current diagnosis for this admission?: Yes Plan: Culture grew Reena albicans and dubliniensis. As above, the patient is on Diflucan. (3) Constipation Is this a current diagnosis for this admission?: Yes Plan: Patient has been requiring intermittent use of suppositories (4) Dehydration Is this a current diagnosis for this admission?: Yes Plan: Resolved (5) Urinary retention Is this a current diagnosis for this admission?: Yes Plan: Continue Pickard (6) CVA (cerebral vascular accident) Qualifiers: CVA mechanism: other Qualified Code(s): I63.8 - Other cerebral infarction Is this a current diagnosis for this admission?: Yes Plan: Continue supportive care (7) Diastolic congestive heart failure Qualifiers: Heart failure chronicity: chronic Qualified Code(s): I50.32 - Chronic diastolic (congestive) heart failure Plan: IV fluids have been discontinued. Going to give a trial of Lasix today. (8) Schizoaffective disorder Qualifiers: Schizoaffective disorder type: unspecified Qualified Code(s): F25.9 - Schizoaffective disorder, unspecified Is this a current diagnosis for this admission?: Yes Plan: Continue supportive care - Time Time Spent with patient: 15-24 minutes - Inpatient Certification Medical Necessity: Risk of Complication if Not Cared For in Hospital - Plan Summary Plan Summary: Abdominal pain is resolving. Once respiratory status is stable I think we can make plans for discharge. Hopefully, this will be tomorrow.
[2017-07-02] MEDS ORDERED: FUROSEMIDE INJ/PF 40 MG/4 ML SDV IV ONE (14:38)
[2017-07-02] MEDS: TAMSULOSIN HCL 0.4 MG CAP.SR.24H PO SCH (15:26)
[2017-07-02] MEDS: FLUCONAZOLE 200 MG/NS RTU 100 ML IV SCH (17:56)
[2017-07-02] MEDS: ATORVASTATIN CALCIUM 80 MG TABLET PEG SCH (23:07)
[2017-07-03] MEDS: IPRATROPIUM/ALBUTEROL 0.5-2.5 MG/3 ML AMPUL NEB SCH ×6 (00:34→20:30)
[2017-07-03] MEDS: LANSOPRAZOLE 30 MG TAB.RAP.DR PEG SCH (06:16)
[2017-07-03 08:30] LABS: HEMATOCRIT 50.3 % (37.9-51.0); MEAN CORPUSCULAR HEMOGLOBIN 27.9 pg (27.0-33.4); MEAN CORPUSCULAR HGB CONC 32.3 g/dL (32.0-36.0); MEAN CORPUSCULAR VOLUME 86 fl (80-97); PLATELET COUNT 148 10^3/uL (150-450); RED BLOOD COUNT 5.82 10^6/uL (4.35-5.55); RED CELL DISTRIBUTION WIDTH 15.2 % (11.5-14.0); WHITE BLOOD COUNT 6.1 10^3/uL (4.0-10.5)
[2017-07-03 08:44] LABS: HEMOGLOBIN 16.2 g/dL (13.5-17.0)
[2017-07-03 08:56] LABS: ANION GAP 10 (5-19); BLOOD UREA NITROGEN 33 mg/dL (7-20); CALCIUM 10.7 mg/dL (8.4-10.2); CARBON DIOXIDE 32 mmol/L (22-30); CHLORIDE 100 mmol/L (98-107); GLUCOSE 89 mg/dL (75-110); PHOSPHORUS 3.7 mg/dL (2.5-4.5); SODIUM 142.1 mmol/L (137-145)
[2017-07-03 09:05] LABS: ABSOLUTE LYMPHOCYTES# (MANUAL) 1.3 10^3/uL (0.5-4.7); ABSOLUTE MONOCYTES # (MANUAL) 0.6 10^3/uL (0.1-1.4); ABSOLUTE NEUTROPHILS# (MANUAL) 4.2 10^3/uL (1.7-8.2); BAND NEUTROPHILS % (MANUAL) 1 % (3-5); BASOPHILS % (MANUAL) 0 % (0-2); EOSINOPHILS % (MANUAL) 0 % (0-6); LYMPHOCYTES % (MANUAL) 19 % (13-45); METAMYELOCYTES % (MANUAL) 2 % (0); MONOCYTES % (MANUAL) 10 % (3-13); NUCLEATED RED BLOOD CELLS 2 /100 WBC (0); SEGMENTED NEUTROPHILS % (MAN) 66 % (42-78); TOTAL CELLS COUNTED 100
[2017-07-03 09:07] LABS: HYPOCHROMASIA SLIGHT; PLATELET CLUMPS PRESENT; POLYCHROMASIA SLIGHT
[2017-07-03] MEDS: ESCITALOPRAM OXALATE 10 MG TABLET PEG SCH (10:50)
[2017-07-03] MEDS: PREDNISONE 5 MG TABLET PO SCH ×2 (10:50→18:41)
[2017-07-03] MEDS: ASPIRIN 325 MG TABLET PEG SCH (10:50)
[2017-07-03] MEDS: RIVAROXABAN 15 MG TABLET PEG SCH (10:51)
[2017-07-03] MEDS: CALCIUM CARBONATE 250 MG/VITAMIN D3 125 UNIT TABLET NG SCH (10:51)
[2017-07-03] MEDS: METOPROLOL TARTRATE 25 MG TABLET PEG SCH ×2 (10:52→22:01)
[2017-07-03] MEDS: FINASTERIDE 5 MG TABLET PO SCH (10:52)
[2017-07-03] MEDS: OLANZAPINE 5 MG TABLET PEG SCH (10:52)
[2017-07-03] MEDS: BUDESONIDE/FORMOTEROL 160-4.5 MCG 60 PUFF/6 GM MDI IH SCH ×2 (10:53→22:01)
[2017-07-03] MEDS: NORMAL SALINE 10 ML SDV (SCHEDULED) IV SCH ×2 (10:54→21:57)
--- NOTE | 2017-07-03 13:17 | PDOC PROGRESS REPORT ---
Subjective Progress Note for:: 07/03/17 Subjective:: Patient is a 71-year-old male who has suffered 2 previous strokes. He has been admitted with sepsis secondary to urinary tract infection. Over the weekend there were issues of abdominal pain which seemed to have resolved with Maalox. Tube feeds have not yet been advanced to goal. Yesterday, the patient seemed to have some respiratory difficulty. It is very difficult to understand the patient but he did have rales on exam. I gave him 1 dose of Lasix and this appears to have resolved. Reason For Visit: SEPSIS, UTI, NPO Physical Exam Vital Signs: Temp Pulse Resp BP Pulse Ox 97.4 F 71 18 128/80 H 91 L 07/03/17 07:17 07/03/17 11:48 07/03/17 11:48 07/03/17 07:17 07/03/17 08:53 Intake & Output 07/02/17 07/03/17 07/04/17 06:59 06:59 06:59 Intake Total 345 700 Output Total 800 3500 Balance -455 -2800 Weight 76.2 kg 75.2 kg Additional comments: The patient appears to be older than the age of 71. He does not appear to be in good general health. His dentition is quite marginal. His facial appearance is otherwise unremarkable. Lungs today demonstrate resolution of the rales that were noted bilaterally yesterday. Cardiac exam is regular without murmurs, gallops or rubs. The abdomen today is much softer. Bowel sounds are present. He does not have any guarding or rebound and the PEG tube site is clean dry and intact. His lower extremities do not demonstrate any pitting edema. The skin is clean, warm, dry and intact in all the visible areas. Results Laboratory Results: 07/03/17 07:50 07/03/17 07:50 07/03/17 07/03/17 07:50 07:50 WBC 6.1 RBC 5.82 H Hgb 16.2 D Hct 50.3 MCV 86 MCH 27.9 MCHC 32.3 RDW 15.2 H Plt Count 148 L Seg Neutrophils % Not Reportable Lymphocytes % Not Reportable Monocytes % Not Reportable Eosinophils % Not Reportable Basophils % Not Reportable Absolute Neutrophils Not Reportable Absolute Lymphocytes Not Reportable Absolute Monocytes Not Reportable Absolute Eosinophils Not Reportable Absolute Basophils Not Reportable Sodium 142.1 Potassium 5.0 Chloride 100 Carbon Dioxide 32 H Anion Gap 10 BUN 33 H Creatinine 1.06 Est GFR ( Amer) > 60 Est GFR (Non-Af Amer) > 60 Glucose 89 Calcium 10.7 H Phosphorus 3.7 Magnesium 2.4 H Impressions: Abdomen/Pelvis CT 06/25/17 14:01 IMPRESSION: NO SIGNIFICANT OR ACUTE FINDING IN THE ABDOMEN OR PELVIS ON CT SCAN WITH IV CONTRAST. Guidance Fluoroscopy 06/27/17 00:00 IMPRESSION: SUCCESSFUL PLACEMENT OF A 5 FR DUAL LUMEN 42 CM PICC IN THE LEFT BASILIC VEIN. Interventional Vascular Procedure 06/27/17 00:00 IMPRESSION: SUCCESSFUL PLACEMENT OF A 5 FR DUAL LUMEN 42 CM PICC IN THE LEFT BASILIC VEIN. PICC Line Insertion 06/27/17 00:00 IMPRESSION: SUCCESSFUL PLACEMENT OF A 5 FR DUAL LUMEN 42 CM PICC IN THE LEFT BASILIC VEIN. Chest X-Ray 06/29/17 00:00 IMPRESSION: COPD. NO ACUTE RADIOGRAPHIC FINDING IN THE CHEST. KUB X-Ray 06/30/17 00:00 IMPRESSION: NO RADIOGRAPHIC EVIDENCE FOR ACUTE ABDOMINAL DISEASE. Assessment & Plan - Diagnosis (1) Sepsis Qualifiers: Sepsis type: sepsis due to unspecified organism Qualified Code(s): A41.9 - Sepsis, unspecified organism Is this a current diagnosis for this admission?: Yes Plan: Rocephin has been completed. Today is day 7/14 of fluconazole. At the time of discharge fluconazole can be switched to oral. (2) UTI (urinary tract infection) Qualifiers: Urinary tract infection type: site unspecified Hematuria presence: without hematuria Qualified Code(s): N39.0 - Urinary tract infection, site not specified Is this a current diagnosis for this admission?: Yes Plan: Culture grew Reena albicans and dubliniensis. As above, the patient is on Diflucan. (3) Constipation Is this a current diagnosis for this admission?: Yes Plan: Patient has been requiring intermittent use of suppositories (4) Dehydration Is this a current diagnosis for this admission?: Yes Plan: Lasix was given yesterday for rails. Today, patient has mild hypercalcemia. Patient may need as needed Lasix but due to issues with dehydration I would not put Lasix on as a standing order. (5) Urinary retention Is this a current diagnosis for this admission?: Yes Plan: Continue Pickard (6) CVA (cerebral vascular accident) Qualifiers: CVA mechanism: other Qualified Code(s): I63.8 - Other cerebral infarction Is this a current diagnosis for this admission?: Yes Plan: Continue supportive care (7) Diastolic congestive heart failure Qualifiers: Heart failure chronicity: chronic Qualified Code(s): I50.32 - Chronic diastolic (congestive) heart failure Plan: IV fluids have been discontinued. A trial of Lasix was given yesterday. Again , patient has some evidence of dehydration today with mild increase in calcium level. I would use diuretics judiciously. (8) Schizoaffective disorder Qualifiers: Schizoaffective disorder type: unspecified Qualified Code(s): F25.9 - Schizoaffective disorder, unspecified Is this a current diagnosis for this admission?: Yes Plan: Continue supportive care (9) Hypercalcemia Is this a current diagnosis for this admission?: Yes Plan: Likely due to decreased intravascular volume from Lasix yesterday. Patient has also been receiving supplementation with calcium. This has been discontinued. We will repeat labs for tomorrow. (10) Abdominal pain Is this a current diagnosis for this admission?: Yes Plan: No clear identified reason. This could be from as needed constipation. CT of the abdomen and pelvis was unremarkable. Abdominal exam is unremarkable. We are trying now to titrate tube feeds to goal. - Time Time Spent with patient: 25-34 minutes - Inpatient Certification Medical Necessity: Other - Patient is currently receiving intravenous antifungal therapy. In addition, we have been having difficulties advancing tube feeds. Once tube feeds are advanced to goal he should be stable for discharge back to skilled facility.
[2017-07-03] MEDS: TAMSULOSIN HCL 0.4 MG CAP.SR.24H PO SCH (14:46)
[2017-07-03] MEDS: ATORVASTATIN CALCIUM 80 MG TABLET PEG SCH (22:01)
[2017-07-04] MEDS: IPRATROPIUM/ALBUTEROL 0.5-2.5 MG/3 ML AMPUL NEB SCH ×6 (00:20→20:36)
[2017-07-04 05:54] LABS: ANION GAP 8 (5-19); BLOOD UREA NITROGEN 32 mg/dL (7-20); CARBON DIOXIDE 30 mmol/L (22-30); CHLORIDE 100 mmol/L (98-107); GLUCOSE 112 mg/dL (75-110); POTASSIUM 4.8 mmol/L (3.6-5.0); SODIUM 138.3 mmol/L (137-145)
[2017-07-04] MEDS: LANSOPRAZOLE 30 MG TAB.RAP.DR PEG SCH (06:15)
[2017-07-04] MEDS: ESCITALOPRAM OXALATE 10 MG TABLET PEG SCH (09:04)
[2017-07-04] MEDS: OLANZAPINE 5 MG TABLET PEG SCH (09:04)
[2017-07-04] MEDS: PREDNISONE 5 MG TABLET PO SCH ×2 (09:04→17:31)
[2017-07-04] MEDS: FINASTERIDE 5 MG TABLET PO SCH (09:04)
[2017-07-04] MEDS: ASPIRIN 325 MG TABLET PEG SCH (09:04)
[2017-07-04] MEDS: RIVAROXABAN 15 MG TABLET PEG SCH (09:05)
[2017-07-04] MEDS: METOPROLOL TARTRATE 25 MG TABLET PEG SCH ×2 (09:06→22:39)
[2017-07-04] MEDS: BUDESONIDE/FORMOTEROL 160-4.5 MCG 60 PUFF/6 GM MDI IH SCH ×2 (09:12→22:39)
[2017-07-04] MEDS: NORMAL SALINE 10 ML SDV (SCHEDULED) IV SCH ×2 (09:12→22:19)
[2017-07-04] MEDS: IPRATROPIUM/ALBUTEROL 0.5-2.5 MG/3 ML AMPUL NEB PRN (11:44)
[2017-07-04] MEDS: TAMSULOSIN HCL 0.4 MG CAP.SR.24H PO SCH (13:14)
[2017-07-04] MEDS ORDERED: LACTULOSE SYRUP 20 GM/30 ML UDCUP PEG ONE (15:48)
--- NOTE | 2017-07-04 15:53 | PDOC PROGRESS REPORT ---
Subjective Progress Note for:: 07/04/17 Subjective:: Pt's sister is concerned that pt has an obstruction. Pt's sister was asking for a second opinion. Reason For Visit: SEPSIS, UTI, NPO Physical Exam Vital Signs: Temp Pulse Resp BP Pulse Ox 97.5 F 70 18 136/87 H 97 07/04/17 11:37 07/04/17 11:46 07/04/17 11:46 07/04/17 11:37 07/04/17 11:46 Intake & Output 07/03/17 07/04/17 07/05/17 06:59 06:59 06:59 Intake Total 700 1712 375 Output Total 3500 900 400 Balance -2800 812 -25 Weight 75.2 kg 63.6 kg General appearance: PRESENT: no acute distress, well-developed, well-nourished Head exam: PRESENT: atraumatic, normocephalic Eye exam: PRESENT: conjunctiva pink, EOMI. ABSENT: scleral icterus Ear exam: PRESENT: normal external ear exam Mouth exam: PRESENT: moist, tongue midline Neck exam: ABSENT: carotid bruit, JVD, lymphadenopathy, thyromegaly Respiratory exam: PRESENT: clear to auscultation eric. ABSENT: rales, rhonchi, wheezes Pulses: PRESENT: normal dorsalis pedis pul Vascular exam: PRESENT: normal capillary refill GI/Abdominal exam: PRESENT: distended, normal bowel sounds, soft. ABSENT: guarding, mass, organolmegaly, rebound, tenderness Rectal exam: PRESENT: deferred Extremities exam: PRESENT: full ROM. ABSENT: calf tenderness, clubbing, pedal edema Musculoskeletal exam: PRESENT: full ROM Neurological exam: PRESENT: alert, awake, oriented to person. ABSENT: motor sensory deficit Psychiatric exam: PRESENT: appropriate affect, normal mood. ABSENT: homicidal ideation, suicidal ideation Skin exam: PRESENT: dry, intact, warm. ABSENT: cyanosis, rash Results Laboratory Results: 07/03/17 07:50 07/04/17 05:04 07/04/17 05:04 Sodium 138.3 Potassium 4.8 Chloride 100 Carbon Dioxide 30 Anion Gap 8 BUN 32 H Creatinine 0.92 Est GFR ( Amer) > 60 Est GFR (Non-Af Amer) > 60 Glucose 112 H Calcium 10.0 Magnesium 2.2 Impressions: Abdomen/Pelvis CT 06/25/17 14:01 IMPRESSION: NO SIGNIFICANT OR ACUTE FINDING IN THE ABDOMEN OR PELVIS ON CT SCAN WITH IV CONTRAST. Guidance Fluoroscopy 06/27/17 00:00 IMPRESSION: SUCCESSFUL PLACEMENT OF A 5 FR DUAL LUMEN 42 CM PICC IN THE LEFT BASILIC VEIN. Interventional Vascular Procedure 06/27/17 00:00 IMPRESSION: SUCCESSFUL PLACEMENT OF A 5 FR DUAL LUMEN 42 CM PICC IN THE LEFT BASILIC VEIN. PICC Line Insertion 06/27/17 00:00 IMPRESSION: SUCCESSFUL PLACEMENT OF A 5 FR DUAL LUMEN 42 CM PICC IN THE LEFT BASILIC VEIN. Chest X-Ray 06/29/17 00:00 IMPRESSION: COPD. NO ACUTE RADIOGRAPHIC FINDING IN THE CHEST. KUB X-Ray 06/30/17 00:00 IMPRESSION: NO RADIOGRAPHIC EVIDENCE FOR ACUTE ABDOMINAL DISEASE. Assessment & Plan - Diagnosis (1) Sepsis Qualifiers: Sepsis type: sepsis due to unspecified organism Qualified Code(s): A41.9 - Sepsis, unspecified organism Is this a current diagnosis for this admission?: Yes Plan: (Tachycardia, Hypotension, concern for UTI, Temp 100.3F) Secondary to Concern for UTI: Completed treatment. (2) Acute cystitis Is this a current diagnosis for this admission?: Yes Plan: Urine culture has demonstrated no growth. (3) CHF (congestive heart failure) Is this a current diagnosis for this admission?: Yes Plan: Chronic Diastolic Congestive Heart Failure: IVFs discontinued. (4) CVA (cerebral vascular accident) Qualifiers: CVA mechanism: other Qualified Code(s): I63.8 - Other cerebral infarction Is this a current diagnosis for this admission?: Yes Plan: Supportive care. Will continue pt on Xarelto. (5) Urinary retention Is this a current diagnosis for this admission?: Yes Plan: [place] anchored. Flomax 0.4mg PO QHS and Finasteride 5 mg PO Qdaily and maintain indwelling de [place] for 2 weeks per Urology. Urology recommends follow up as outpatient. (6) Hypernatremia Is this a current diagnosis for this admission?: Yes Plan: Will place pt on D5W 75cc/hour. Will give D5W bolus. Will check CMP in a.m. (7) Schizoaffective disorder Qualifiers: Schizoaffective disorder type: unspecified Qualified Code(s): F25.9 - Schizoaffective disorder, unspecified Is this a current diagnosis for this admission?: Yes Plan: Will continue pt home medications. (8) Feeding difficulties Is this a current diagnosis for this admission?: Yes Plan: Pt on tubefeeds. (9) Constipation Is this a current diagnosis for this admission?: Yes Plan: Will give lactulose and Miralax. Will consult Dr. Osorio to evaluate pt. (10) Dehydration Is this a current diagnosis for this admission?: Yes Plan: Resolved.
[2017-07-04] MEDS: ATORVASTATIN CALCIUM 80 MG TABLET PEG SCH (22:39)
[2017-07-05] MEDS: IPRATROPIUM/ALBUTEROL 0.5-2.5 MG/3 ML AMPUL NEB SCH ×7 (00:27→23:54)
[2017-07-05] MEDS: LANSOPRAZOLE 30 MG TAB.RAP.DR PEG SCH (05:56)
[2017-07-05] MEDS ORDERED: POLYETHYLENE GLYCOL 3350 POWDER 17 GM/1 PACKET PO SCH (10:00)
[2017-07-05] MEDS: OLANZAPINE 5 MG TABLET PEG SCH (10:50)
[2017-07-05] MEDS: BUDESONIDE/FORMOTEROL 160-4.5 MCG 60 PUFF/6 GM MDI IH SCH ×2 (10:50→22:24)
[2017-07-05] MEDS: ASPIRIN 325 MG TABLET PEG SCH (10:50)
[2017-07-05] MEDS: LACTULOSE SYRUP 20 GM/30 ML UDCUP PEG SCH (10:50)
[2017-07-05] MEDS: METOPROLOL TARTRATE 25 MG TABLET PEG SCH ×2 (10:51→22:23)
[2017-07-05] MEDS: PREDNISONE 5 MG TABLET PO SCH ×2 (10:51→18:35)
[2017-07-05] MEDS: FINASTERIDE 5 MG TABLET PO SCH (10:52)
[2017-07-05] MEDS: RIVAROXABAN 15 MG TABLET PEG SCH (10:52)
[2017-07-05] MEDS: SCOPOLAMINE HYDROBROMIDE 1.5 MG PATCH.TD72 TD SCH (10:53)
[2017-07-05] MEDS: ESCITALOPRAM OXALATE 10 MG TABLET PEG SCH (10:54)
[2017-07-05] MEDS: NORMAL SALINE 10 ML SDV (SCHEDULED) IV SCH ×2 (10:55→22:16)
--- NOTE | 2017-07-05 11:56 | PDOC PROGRESS REPORT ---
Subjective Progress Note for:: 07/05/17 Subjective:: No new issues. Reason For Visit: SEPSIS, UTI, NPO Physical Exam Vital Signs: Temp Pulse Resp BP Pulse Ox 97.7 F 90 18 111/75 96 07/05/17 07:09 07/05/17 08:39 07/05/17 08:39 07/05/17 07:09 07/05/17 08:39 Intake & Output 07/04/17 07/05/17 07/06/17 06:59 06:59 06:59 Intake Total 1712 1966 Output Total 900 1600 Balance 812 366 Weight 63.6 kg 73.8 kg General appearance: PRESENT: no acute distress, well-developed, well-nourished Head exam: PRESENT: atraumatic, normocephalic Eye exam: PRESENT: conjunctiva pink, EOMI. ABSENT: scleral icterus Ear exam: PRESENT: normal external ear exam Mouth exam: PRESENT: moist, tongue midline Neck exam: ABSENT: carotid bruit, JVD, lymphadenopathy, thyromegaly Respiratory exam: PRESENT: clear to auscultation eric. ABSENT: rales, rhonchi, wheezes Cardiovascular exam: PRESENT: RRR. ABSENT: diastolic murmur, rubs, systolic murmur Pulses: PRESENT: normal dorsalis pedis pul Vascular exam: PRESENT: normal capillary refill GI/Abdominal exam: PRESENT: distended, normal bowel sounds, soft. ABSENT: guarding, mass, organolmegaly, rebound, tenderness Rectal exam: PRESENT: deferred Extremities exam: ABSENT: calf tenderness, clubbing, pedal edema Neurological exam: PRESENT: alert, awake Skin exam: PRESENT: dry, intact, warm. ABSENT: cyanosis, rash Results Laboratory Results: 07/03/17 07:50 07/04/17 05:04 Impressions: Abdomen/Pelvis CT 06/25/17 14:01 IMPRESSION: NO SIGNIFICANT OR ACUTE FINDING IN THE ABDOMEN OR PELVIS ON CT SCAN WITH IV CONTRAST. Guidance Fluoroscopy 06/27/17 00:00 IMPRESSION: SUCCESSFUL PLACEMENT OF A 5 FR DUAL LUMEN 42 CM PICC IN THE LEFT BASILIC VEIN. Interventional Vascular Procedure 06/27/17 00:00 IMPRESSION: SUCCESSFUL PLACEMENT OF A 5 FR DUAL LUMEN 42 CM PICC IN THE LEFT BASILIC VEIN. PICC Line Insertion 06/27/17 00:00 IMPRESSION: SUCCESSFUL PLACEMENT OF A 5 FR DUAL LUMEN 42 CM PICC IN THE LEFT BASILIC VEIN. Chest X-Ray 06/29/17 00:00 IMPRESSION: COPD. NO ACUTE RADIOGRAPHIC FINDING IN THE CHEST. KUB X-Ray 06/30/17 00:00 IMPRESSION: NO RADIOGRAPHIC EVIDENCE FOR ACUTE ABDOMINAL DISEASE. Assessment & Plan - Diagnosis (1) Sepsis Qualifiers: Sepsis type: sepsis due to unspecified organism Qualified Code(s): A41.9 - Sepsis, unspecified organism Is this a current diagnosis for this admission?: Yes Plan: (Tachycardia, Hypotension, concern for UTI, Temp 100.3F) Secondary to Concern for UTI: Completed treatment. Family requesting that pt has a repeat UA. (2) Acute cystitis Is this a current diagnosis for this admission?: Yes Plan: Urine culture has demonstrated no growth. Family wants repeat UA. (3) CHF (congestive heart failure) Is this a current diagnosis for this admission?: Yes Plan: Chronic Diastolic Congestive Heart Failure: IVFs discontinued. (4) CVA (cerebral vascular accident) Qualifiers: CVA mechanism: other Qualified Code(s): I63.8 - Other cerebral infarction Is this a current diagnosis for this admission?: Yes Plan: Supportive care. Will continue pt on Xarelto. (5) Urinary retention Is this a current diagnosis for this admission?: Yes Plan: [place] anchored. Flomax 0.4mg PO QHS and Finasteride 5 mg PO Qdaily and maintain indwelling de [place] for 2 weeks per Urology. Urology recommends follow up as outpatient. (6) Hypernatremia Is this a current diagnosis for this admission?: Yes Plan: Resolved. (7) Schizoaffective disorder Qualifiers: Schizoaffective disorder type: unspecified Qualified Code(s): F25.9 - Schizoaffective disorder, unspecified Is this a current diagnosis for this admission?: Yes Plan: Will continue pt home medications. (8) Feeding difficulties Is this a current diagnosis for this admission?: Yes Plan: Pt on tubefeeds. Will place on Low dose Reglan 2.5 mg PO Meals. (9) Constipation Is this a current diagnosis for this admission?: Yes Plan: Will write for magnesium citrate. (10) Dehydration Is this a current diagnosis for this admission?: Yes Plan: Resolved. - Time Time Spent with patient: 15-24 minutes
[2017-07-05] MEDS ORDERED: MAGNESIUM CITRATE 296 ML BOTTLE GT ONE (12:30)
--- NOTE | 2017-07-05 12:45 | PDOC CONSULTATION ---
Consultation Consult Date: 07/05/17 Attending physician:: AUSTIN AMBRIZ Consult reason:: change in bowel habits. constipation History of Present Illness Admission Date/PCP: 06/25/17 17:22 FIDEL HANDY DO History of Present Illness: patient has been admitted for several days has a previous PEG tube patient has been having some constipation recently had mg citrate no family available according to RN, family wants to make sure no obstruction patient will need colonoscopy there may not have a work up done in the past no observed blood KUB has been negative throughout this hospitalization Past Medical History Cardiac Medical History: Reports: Congestive Heart Failure, Myocardial Infarction, Hypertension Pulmonary Medical History: Reports: Chronic Obstructive Pulmonary Disease (COPD) Neurological Medical History: Reports: Ischemic CVA Renal/ Medical History: Reports: Other - ? previous TURP Psychiatric Medical History: Reports: Depression, Schizoaffective Disorder Past Surgical History Past Surgical History: Reports: Other - ? previous TURP Social History Lives with: Pen[facility]iary Smoking Status: Former Smoker Frequency of Alcohol Use: None Hx Recreational Drug Use: No Drugs: None Hx Prescription Drug Abuse: No - Advance Directive Resuscitation Status: Do Not Resuscitate Family History Family History: CAD, COPD, Hypertension Parental Family History Reviewed: Yes Children Family History Reviewed: Unknown Sibling(s) Family History Reviewed.: Unknown Medication/Allergy Home Medications: Aspirin [Aspirin 325 mg Tablet] 325 mg PEG DAILY 06/26/17 Atorvastatin Calcium [Lipitor 80 mg Tablet] 80 mg PEG QHS 06/26/17 Bisacodyl [Dulcolax 10 mg Supp.rect] 10 mg [place] DAILYP PRN 06/26/17 Budesonide/Formoterol Fumarate [Symbicort HFA 160-4.5 mcg Inhaler 6 gm] 2 puff IH Q12 06/26/17 Escitalopram Oxalate [Lexapro 10 mg Tablet] 10 mg PEG DAILY 06/26/17 Ipratropium/Albuterol Sulfate [Duoneb 3 ml Ampul] 1 vial NEB Q6 06/26/17 Lansoprazole [Prevacid 30 mg Odt Tablet] 30 mg PEG DAILY 06/26/17 Metoprolol Tartrate [Lopressor 25 mg Tablet] 12.5 mg PEG Q12 06/26/17 Olanzapine [Zyprexa 5 mg Tablet] 5 mg PEG QHS 06/26/17 Rivaroxaban [Xarelto 15 mg Tablet] 15 mg PEG DAILY 06/26/17 Allergies/Adverse Reactions: levofloxacin Adverse Reaction (Verified 06/17/17 05:44) Hives Review of Systems Constitutional: ABSENT: fever(s), headache(s), night sweats, weakness Eyes: ABSENT: visual disturbances Ears: ABSENT: hearing changes Nose, Mouth, and Throat: ABSENT: mouth pain Cardiovascular: ABSENT: chest pain, orthropnea Respiratory: ABSENT: dyspnea, hemoptysis Gastrointestinal: PRESENT: constipation. ABSENT: hematochezia, melena Genitourinary: ABSENT: nocturia Musculoskeletal: ABSENT: deformity Integumentary: ABSENT: pruritus Neurological: ABSENT: syncope, tingling, tremor(s), vertigo Endocrine: ABSENT: polydipsia, polyphagia, polyuria Hematologic/Lymphatic: ABSENT: easy bruising Physical Exam Vital Signs: Temp Pulse Resp BP Pulse Ox 97.5 F 78 18 91/77 L 97 07/05/17 11:16 07/05/17 12:21 07/05/17 12:21 07/05/17 11:16 07/05/17 12:21 Intake & Output 07/04/17 07/05/17 07/06/17 06:59 06:59 06:59 Intake Total 1712 1966 Output Total 900 1600 Balance 812 366 Weight 63.6 kg 73.8 kg General appearance: PRESENT: no acute distress, well-developed, well-nourished Head exam: PRESENT: atraumatic, normocephalic Eye exam: PRESENT: EOMI, PERRLA. ABSENT: nystagmus, periorbital swelling, scleral icterus Mouth exam: PRESENT: moist, neck supple Throat exam: ABSENT: tonsillar exudate, tonsillogmegaly Neck exam: ABSENT: meningismus, tenderness, thyromegaly Respiratory exam: PRESENT: symmetrical Cardiovascular exam: PRESENT: RRR, +S1, +S2 GI/Abdominal exam: PRESENT: soft. ABSENT: rebound, rigid, tenderness Gentrourinary exam: ABSENT: lesions Musculoskeletal exam: PRESENT: full ROM Neurological exam: PRESENT: oriented to time, oriented to situation, CN II-XII grossly intact Psychiatric exam: PRESENT: appropriate affect Skin exam: PRESENT: normal color. ABSENT: mottled, pallor, petechiae, urticaria , vesicles Results Laboratory Results: 07/03/17 07:50 07/04/17 05:04 Impressions: Abdomen/Pelvis CT 06/25/17 14:01 IMPRESSION: NO SIGNIFICANT OR ACUTE FINDING IN THE ABDOMEN OR PELVIS ON CT SCAN WITH IV CONTRAST. Guidance Fluoroscopy 06/27/17 00:00 IMPRESSION: SUCCESSFUL PLACEMENT OF A 5 FR DUAL LUMEN 42 CM PICC IN THE LEFT BASILIC VEIN. Interventional Vascular Procedure 06/27/17 00:00 IMPRESSION: SUCCESSFUL PLACEMENT OF A 5 FR DUAL LUMEN 42 CM PICC IN THE LEFT BASILIC VEIN. PICC Line Insertion 06/27/17 00:00 IMPRESSION: SUCCESSFUL PLACEMENT OF A 5 FR DUAL LUMEN 42 CM PICC IN THE LEFT BASILIC VEIN. Chest X-Ray 06/29/17 00:00 IMPRESSION: COPD. NO ACUTE RADIOGRAPHIC FINDING IN THE CHEST. KUB X-Ray 06/30/17 00:00 IMPRESSION: NO RADIOGRAPHIC EVIDENCE FOR ACUTE ABDOMINAL DISEASE. Assessment & Plan - Diagnosis (1) Constipation Is this a current diagnosis for this admission?: Yes Plan: change in bowel habits patient will need colonoscopy, to exclude any sort of obstruction prep will need to be administered thru the PEG Risks, benefits and alternatives are explained to the patient in detail further recommendations to follow (2) Feeding difficulties Is this a current diagnosis for this admission?: Yes Plan: previous PEG tube has been placed, no erythema or discharge noted no infection continue to use for feedings for now however will need to administer prep thru the PEG will stop feedings for now NPO post midnight further recommendations to follow - Time Time Spent: 50 to 70 Minutes
[2017-07-05] MEDS ORDERED: PEG 3350/NA SULF,BICARB,CL/KCL 4000 ML PEG PRN (12:46)
[2017-07-05 12:53] LABS: APPEARANCE,URINE CLEAR; BILIRUBIN,URINE NEGATIVE (NEGATIVE); COLOR,URINE YELLOW; GLUCOSE, URINE NEGATIVE (NEGATIVE); KETONES,URINE NEGATIVE (NEGATIVE); LEUKOCYTE ESTERASE,URINE NEGATIVE (NEGATIVE); NITRITE,URINE NEGATIVE (NEGATIVE); PROTEIN,URINE NEGATIVE (NEGATIVE); URINE SPECIFIC GRAVITY 1.009; UROBILINOGEN,URINE NEGATIVE mg/dL (<2.0)
[2017-07-05] MEDS ORDERED: METOCLOPRAMIDE HCL 10 MG TABLET PO ONE (13:00)
[2017-07-05] MEDS: TAMSULOSIN HCL 0.4 MG CAP.SR.24H PO SCH (13:30)
--- NOTE | 2017-07-05 18:11 | PDOC CONSULTATION ---
Consultation Consult Date: 07/05/17 Consult reason:: need IV access History of Present Illness Admission Date/PCP: 06/25/17 17:22 FIDEL HANDY DO History of Present Illness: The patient is a 71 y/o male with mental retardation admitte dfor dehydration, change of bowel habits, and constipation. Our service has been consulted to place a CVL. The patient had a PICC line that he pulled if out a few days ago and the floor nurses have been unable to find a suitable peripheral vein. Past Medical History Cardiac Medical History: Reports: Congestive Heart Failure, Myocardial Infarction, Hypertension Pulmonary Medical History: Reports: Chronic Obstructive Pulmonary Disease (COPD) Neurological Medical History: Reports: Ischemic CVA Renal/ Medical History: Reports: Other - ? previous TURP Psychiatric Medical History: Reports: Depression, Schizoaffective Disorder Past Surgical History Past Surgical History: Reports: Other - ? previous TURP Social History Lives with: Prison Smoking Status: Former Smoker Frequency of Alcohol Use: None Hx Recreational Drug Use: No Drugs: None Hx Prescription Drug Abuse: No - Advance Directive Resuscitation Status: Do Not Resuscitate Family History Family History: CAD, COPD, Hypertension Parental Family History Reviewed: No Children Family History Reviewed: No Sibling(s) Family History Reviewed.: No Medication/Allergy Home Medications: Aspirin [Aspirin 325 mg Tablet] 325 mg PEG DAILY 06/26/17 Atorvastatin Calcium [Lipitor 80 mg Tablet] 80 mg PEG QHS 06/26/17 Bisacodyl [Dulcolax 10 mg Supp.rect] 10 mg [place] DAILYP PRN 06/26/17 Budesonide/Formoterol Fumarate [Symbicort HFA 160-4.5 mcg Inhaler 6 gm] 2 puff IH Q12 06/26/17 Escitalopram Oxalate [Lexapro 10 mg Tablet] 10 mg PEG DAILY 06/26/17 Ipratropium/Albuterol Sulfate [Duoneb 3 ml Ampul] 1 vial NEB Q6 06/26/17 Lansoprazole [Prevacid 30 mg Odt Tablet] 30 mg PEG DAILY 06/26/17 Metoprolol Tartrate [Lopressor 25 mg Tablet] 12.5 mg PEG Q12 06/26/17 Olanzapine [Zyprexa 5 mg Tablet] 5 mg PEG QHS 06/26/17 Rivaroxaban [Xarelto 15 mg Tablet] 15 mg PEG DAILY 06/26/17 Allergies/Adverse Reactions: levofloxacin Adverse Reaction (Verified 06/17/17 05:44) Hives Physical Exam Vital Signs: Temp Pulse Resp BP Pulse Ox 97.6 F 72 18 114/89 H 94 07/05/17 16:00 07/05/17 16:22 07/05/17 16:22 07/05/17 16:00 07/05/17 16:22 Intake & Output 07/04/17 07/05/17 07/06/17 06:59 06:59 06:59 Intake Total 1712 1966 Output Total 900 1600 500 Balance 812 366 -500 Weight 63.6 kg 73.8 kg Results Laboratory Results: 07/03/17 07:50 07/04/17 05:04 07/05/17 12:30 Urine Color YELLOW Urine Appearance CLEAR Urine pH 8.0 Ur Specific [place] 1.009 Urine Protein NEGATIVE Urine Glucose (UA) NEGATIVE Urine Ketones NEGATIVE Urine Blood MODERATE H Urine Nitrite NEGATIVE Ur Leukocyte Esterase NEGATIVE Urine WBC (Auto) 1 Urine RBC (Auto) 15 Impressions: Abdomen/Pelvis CT 06/25/17 14:01 IMPRESSION: NO SIGNIFICANT OR ACUTE FINDING IN THE ABDOMEN OR PELVIS ON CT SCAN WITH IV CONTRAST. Guidance Fluoroscopy 06/27/17 00:00 IMPRESSION: SUCCESSFUL PLACEMENT OF A 5 FR DUAL LUMEN 42 CM PICC IN THE LEFT BASILIC VEIN. Interventional Vascular Procedure 06/27/17 00:00 IMPRESSION: SUCCESSFUL PLACEMENT OF A 5 FR DUAL LUMEN 42 CM PICC IN THE LEFT BASILIC VEIN. PICC Line Insertion 06/27/17 00:00 IMPRESSION: SUCCESSFUL PLACEMENT OF A 5 FR DUAL LUMEN 42 CM PICC IN THE LEFT BASILIC VEIN. Chest X-Ray 06/29/17 00:00 IMPRESSION: COPD. NO ACUTE RADIOGRAPHIC FINDING IN THE CHEST. KUB X-Ray 06/30/17 00:00 IMPRESSION: NO RADIOGRAPHIC EVIDENCE FOR ACUTE ABDOMINAL DISEASE. Assessment & Plan - Plan Summary Plan Summary: A/ patient in need of IV access via CVL for administration of medication, fluid Patient is currently on Xaralto (last dosed this AM) which make extremely risky the insertion of a CVL P/ Please, re-consult us when patient is 48 hrs after discontinuation of Xeralto.
[2017-07-05] MEDS: METOCLOPRAMIDE HCL 10 MG TABLET PO SCH ×2 (18:35→22:23)
[2017-07-05] MEDS: ATORVASTATIN CALCIUM 80 MG TABLET PEG SCH (22:23)
[2017-07-06] MEDS: IPRATROPIUM/ALBUTEROL 0.5-2.5 MG/3 ML AMPUL NEB SCH ×3 (04:31→11:19)
[2017-07-06] MEDS: LANSOPRAZOLE 30 MG TAB.RAP.DR PEG SCH (05:28)
[2017-07-06] MEDS ORDERED: ACETAMINOPHEN SOLN 325 MG/10.15 ML UDCUP PEG PRN (12:09)
[2017-07-06] MEDS ORDERED: ONDANSETRON HCL INJ/PF 4 MG/2 ML SDV IV PRN (12:30)
[2017-07-06] MEDS ORDERED: DIPHENHYDRAMINE HCL 50 MG/ML VIAL ONE (14:28)
[2017-07-06] MEDS ORDERED: NALOXONE HCL INJ/PF 0.4 MG/1 ML SDV ONE (14:29)
[2017-07-06] MEDS ORDERED: MIDAZOLAM 2 MG/2 ML INJ ONE ×2 (14:29)
[2017-07-06] MEDS ORDERED: ONDANSETRON HCL INJ/PF 4 MG/2 ML SDV ONE (14:29)
[2017-07-06] MEDS ORDERED: GLUCAGON,HUMAN RECOMB 1 MG INJ ONE (14:30)
[2017-07-06] MEDS ORDERED: FENTANYL CITRATE INJ/PF 100 MCG/2 ML AMPUL ONE (14:30)
[2017-07-06] MEDS ORDERED: EPINEPHRINE INJ 1 MG/10 ML DISP.SYRIN ONE (14:30)
[2017-07-06] MEDS ORDERED: FLUMAZENIL INJ 0.5 MG/5 ML VIAL ONE (14:30)
--- NOTE | 2017-07-06 14:53 | RADIOLOGY REPORT (SQ) ---
EXAM DESCRIPTION: PICC INSERTION; FLUORO/CV PLACEMENT; U/S GUIDE FOR VASCULAR ACCESS COMPLETED DATE/TIME: 07/06/2017 2:08 pm REASON FOR STUDY: iv access; IV ACCESS COMPARISON: AP chest 06/29/2017 FLUOROSCOPY TIME: 30 seconds 1 ultrasound and 1 digital fluoroscopic images saved to PACS. TECHNIQUE: Fluoroscopic and ultrasound guided PICC placement. LIMITATIONS: None. PROCEDURE: After written consent and assessment were obtained, the patient was brought into the fluo roscopy room and place supine on the table. Ultrasound was used on the patient's left arm for PICC a ccess. The left arm was prepped and draped in a sterile fashion along with the ultrasound probe. The entry site was anesthetized with 1% lidocaine. A 21 gauge 7 cm needle was advanced through the skin a nd into the basilic vein under live ultrasound guidance. An ultrasound image was saved to PACS confi rming access site. A .018 guide wire was then inserted through the needle and into the venous system . The needle was the removed and an 11 blade scalpel was used to make a 1cm skin incision. A 5 fr pe el-away sheath was advanced over the wire and into the venous system. A measurement was then made usi ng the existing wire and live fluoroscopic guidance. The wire was then removed and the trimmed. The P ICC was advanced through the peel-away sheath and into the venous system. The peel-away sheath was re moved and the catheter was adhered to the patients arm with a stat lock. The catheter was then aspira mario alberto and flushed and a sterile bandage was placed over the access site. A fluoroscopic spot image was saved to PACS confirming the catheter tip within the superior vena cava. IMPRESSION: SUCCESSFUL PLACEMENT OF A 5 FR DUAL LUMEN 42 CM PICC IN THE LEFT BASILIC VEIN. COMMENT: Patient medication list reviewed: Yes- Quality ID# [id number]:Eligible professional attests to doc umenting in the medical record they obtained, updated, or reviewed the patient's current medications. . Quality ID 145: Final reports for procedures using fluoroscopy that document radiation exposure kirsten linden, or exposure time and number of fluorographic images (if radiation exposure indices are not avail able) Quality ID #76: The patient was prepped and draped using maximum sterile barrier technique including cap, mask, sterile gown, sterile gloves, a large sterile sheet, hand hygiene, and 2% Chlorhexidine fo r cutaneous antisepsis. When ultrasound is used, sterile ultrasound techniques are followed requiring sterile gel and sterile probes. TECHNICAL DOCUMENTATION: JOB ID: [id number] [email or web address]- All Rights Reserved Reading location - IP/workstation name: [email or web address]
--- NOTE | 2017-07-06 15:18 | Operative Report ---
Operative Report DATE OF SURGERY: 07/06/17 Operative Report: The risks, benefits and alternatives of the procedure including risks of bleeding, perforation requiring surgery are explained to the patient's power of patent attorney, informed consent is obtained. Timeout was called. Conscious sedation medications are provided. A rectal examination is done which did not reveal any masses, tears or fissures. An Olympus videoscope was inserted into the patient's rectum. It is carefully advanced all the way to the cecum. The cecum was identified by the usual anatomical landmarks including the ileocecal valve as well as the appendiceal office. Photodocumentation is obtained. The scope was then sequentially pulled back via the various segments of the colon including the ascending colon, hepatic flexure, transverse colon, splenic flexure, descending colon and finally in to the rectosigmoid portions of the colon. Retroflexion maneuvers performed. PREOPERATIVE DIAGNOSIS: Chronic constipation, change in bowel habits, rule out obstruction POSTOPERATIVE DIAGNOSIS: 3 polyps one in the ascending colon, the second in the transverse colon, detail within the rectosigmoid region. All of which are removed and retrieved with snare polypectomy. Internal hemorrhoids OPERATION: Colonoscopy with biopsy SURGEON: AUSTIN AMBRIZ ANESTHESIA: Moderate Sedation - 2 mg of Versed. Conscious sedation monitoring time 30 minutes. TISSUE REMOVED OR ALTERED: As noted above. COMPLICATIONS: None. ESTIMATED BLOOD LOSS: None. INTRAOPERATIVE FINDINGS: As noted above. PROCEDURE: Patient tolerated procedure well. No immediate postprocedure complications are noted. Patient sent back to his room in good condition. Resume regular diet, tube feeds Resume previous activity level We will wait on pathology Further recommendations to follow
--- NOTE | 2017-07-06 15:55 | PDOC PROGRESS REPORT ---
Subjective Progress Note for:: 07/06/17 Subjective:: No new issues this morning. Reason For Visit: SEPSIS, UTI, NPO Physical Exam Vital Signs: Temp Pulse Resp BP Pulse Ox 97.7 F 97 20 127/78 H 95 07/06/17 13:08 07/06/17 15:20 07/06/17 15:20 07/06/17 15:20 07/06/17 15:20 Intake & Output 07/05/17 07/06/17 07/07/17 06:59 06:59 06:59 Intake Total 1966 2054 100 Output Total 1600 1999 300 Balance 366 55 -200 Weight 73.8 kg 72.3 kg General appearance: PRESENT: no acute distress, well-developed, well-nourished Head exam: PRESENT: atraumatic, normocephalic Eye exam: PRESENT: conjunctiva pink, EOMI Ear exam: PRESENT: normal external ear exam Mouth exam: PRESENT: moist, tongue midline Neck exam: ABSENT: carotid bruit, JVD, lymphadenopathy, thyromegaly Respiratory exam: PRESENT: clear to auscultation eric. ABSENT: rales, rhonchi, wheezes Cardiovascular exam: PRESENT: RRR. ABSENT: diastolic murmur, rubs, systolic murmur Pulses: PRESENT: normal dorsalis pedis pul Vascular exam: PRESENT: normal capillary refill GI/Abdominal exam: PRESENT: normal bowel sounds, soft. ABSENT: distended, guarding, mass, organolmegaly, rebound, tenderness Rectal exam: PRESENT: deferred Extremities exam: ABSENT: calf tenderness, clubbing, pedal edema Neurological exam: PRESENT: alert, awake. ABSENT: motor sensory deficit Psychiatric exam: PRESENT: appropriate affect, normal mood. ABSENT: homicidal ideation, suicidal ideation Skin exam: PRESENT: dry, intact, warm. ABSENT: cyanosis, rash Results Laboratory Results: 07/03/17 07:50 07/04/17 05:04 Impressions: Abdomen/Pelvis CT 06/25/17 14:01 IMPRESSION: NO SIGNIFICANT OR ACUTE FINDING IN THE ABDOMEN OR PELVIS ON CT SCAN WITH IV CONTRAST. Chest X-Ray 06/29/17 00:00 IMPRESSION: COPD. NO ACUTE RADIOGRAPHIC FINDING IN THE CHEST. KUB X-Ray 06/30/17 00:00 IMPRESSION: NO RADIOGRAPHIC EVIDENCE FOR ACUTE ABDOMINAL DISEASE. Guidance Fluoroscopy 07/06/17 00:00 IMPRESSION: SUCCESSFUL PLACEMENT OF A 5 FR DUAL LUMEN 42 CM PICC IN THE LEFT BASILIC VEIN. Interventional Vascular Procedure 07/06/17 00:00 IMPRESSION: SUCCESSFUL PLACEMENT OF A 5 FR DUAL LUMEN 42 CM PICC IN THE LEFT BASILIC VEIN. PICC Line Insertion 07/06/17 00:00 IMPRESSION: SUCCESSFUL PLACEMENT OF A 5 FR DUAL LUMEN 42 CM PICC IN THE LEFT BASILIC VEIN. Assessment & Plan - Diagnosis (1) Sepsis Qualifiers: Sepsis type: sepsis due to unspecified organism Qualified Code(s): A41.9 - Sepsis, unspecified organism Is this a current diagnosis for this admission?: Yes Plan: (Tachycardia, Hypotension, concern for UTI, Temp 100.3F) Secondary to Concern for UTI: Completed treatment. Repeat UA no consistent with UTI. (2) Acute cystitis Is this a current diagnosis for this admission?: Yes Plan: Urine culture has demonstrated no growth. (3) CHF (congestive heart failure) Is this a current diagnosis for this admission?: Yes Plan: Chronic Diastolic Congestive Heart Failure: IVFs discontinued. (4) CVA (cerebral vascular accident) Qualifiers: CVA mechanism: other Qualified Code(s): I63.8 - Other cerebral infarction Is this a current diagnosis for this admission?: Yes Plan: Supportive care. Hold Xarelto due to biopsies. (5) Urinary retention Is this a current diagnosis for this admission?: Yes Plan: [place] anchored. Flomax 0.4mg PO QHS and Finasteride 5 mg PO Qdaily and maintain indwelling de [place] for 2 weeks per Urology. Urology recommends follow up as outpatient. (6) Hypernatremia Is this a current diagnosis for this admission?: Yes Plan: Resolved. (7) Schizoaffective disorder Qualifiers: Schizoaffective disorder type: unspecified Qualified Code(s): F25.9 - Schizoaffective disorder, unspecified Is this a current diagnosis for this admission?: Yes Plan: Will continue pt home medications. (8) Feeding difficulties Is this a current diagnosis for this admission?: Yes Plan: Pt on tubefeeds. Will continue Reglan 2.5 mg PO Meals. (9) Constipation Is this a current diagnosis for this admission?: Yes Plan: Miralax daily. (10) Dehydration Is this a current diagnosis for this admission?: Yes Plan: Resolved. (11) Colonic polyp Is this a current diagnosis for this admission?: Yes Plan: S/P 3 polyps removed: Will hold Xarelto for now. - Time Time Spent with patient: 15-24 minutes - Will hold Xarelto
[2017-07-06] MEDS: ASPIRIN 325 MG TABLET PEG SCH (16:21)
[2017-07-06] MEDS: LACTULOSE SYRUP 20 GM/30 ML UDCUP PEG SCH (16:21)
[2017-07-06] MEDS: NORMAL SALINE 10 ML SDV (SCHEDULED) IV SCH ×2 (16:21→21:11)
[2017-07-06] MEDS: METOPROLOL TARTRATE 25 MG TABLET PEG SCH ×2 (16:21→21:11)
[2017-07-06] MEDS ORDERED: NORMAL SALINE 10 ML SDV (AFTER EACH USE) IV PRN (16:41)
[2017-07-06] MEDS: FINASTERIDE 5 MG TABLET PO SCH (17:30)
[2017-07-06] MEDS: BUDESONIDE/FORMOTEROL 160-4.5 MCG 60 PUFF/6 GM MDI IH SCH ×2 (17:30→21:11)
[2017-07-06] MEDS: METOCLOPRAMIDE HCL ORAL SOLN 10 MG/10 ML UDCUP PEG SCH ×2 (17:30→21:11)
[2017-07-06] MEDS: PREDNISONE 5 MG TABLET PEG SCH (17:30)
[2017-07-06] MEDS: OLANZAPINE 5 MG TABLET PEG SCH (17:31)
[2017-07-06] MEDS: ESCITALOPRAM OXALATE 10 MG TABLET PEG SCH (17:31)
[2017-07-06] MEDS: TAMSULOSIN HCL 0.4 MG CAP.SR.24H PO SCH (17:32)
[2017-07-06] MEDS: ATORVASTATIN CALCIUM 80 MG TABLET PEG SCH (21:11)
[2017-07-07 04:20] LABS: HEMATOCRIT 39.9 % (37.9-51.0); HEMOGLOBIN 12.7 g/dL (13.5-17.0); MEAN CORPUSCULAR HEMOGLOBIN 27.6 pg (27.0-33.4); MEAN CORPUSCULAR HGB CONC 31.8 g/dL (32.0-36.0); MEAN CORPUSCULAR VOLUME 87 fl (80-97); PLATELET COUNT 216 10^3/uL (150-450); RED BLOOD COUNT 4.59 10^6/uL (4.35-5.55); RED CELL DISTRIBUTION WIDTH 15.6 % (11.5-14.0); WHITE BLOOD COUNT 5.5 10^3/uL (4.0-10.5)
[2017-07-07 04:44] LABS: ABSOLUTE MONOCYTES # (MANUAL) 0.3 10^3/uL (0.1-1.4); ABSOLUTE NEUTROPHILS# (MANUAL) 4.2 10^3/uL (1.7-8.2); BASOPHILS % (MANUAL) 0 % (0-2); EOSINOPHILS % (MANUAL) 0 % (0-6); LYMPHOCYTES % (MANUAL) 18 % (13-45); MONOCYTES % (MANUAL) 6 % (3-13); SEGMENTED NEUTROPHILS % (MAN) 76 % (42-78); TOTAL CELLS COUNTED 100
[2017-07-07 04:45] LABS: BURR CELLS SLIGHT; OVALOCYTES 2+; TOXIC GRANULATION SLIGHT; TOXIC VACUOLATION PRESENT
[2017-07-07 04:46] LABS: ANISOCYTOSIS SLIGHT; PLATELET COMMENT ADEQUATE; POIKILOCYTOSIS 1+; POLYCHROMASIA SLIGHT
[2017-07-07] MEDS: LANSOPRAZOLE 30 MG TAB.RAP.DR PEG SCH (05:31)
--- NOTE | 2017-07-07 08:20 | PDOC PROGRESS REPORT ---
Subjective Progress Note for:: 07/07/17 Subjective:: patient underwent colonoscopy yesterday prep was not as bad as anticipated had 3 polyps that were removed no obstruction is noted some internal hemorrhoids no overnight events patient has a PEG, resumption of feeds patient did not have any overnight bleeding Reason For Visit: SEPSIS, UTI, NPO Physical Exam Vital Signs: Temp Pulse Resp BP Pulse Ox 97.4 F 71 15 141/87 H 96 07/07/17 07:58 07/07/17 07:00 07/07/17 07:58 07/07/17 07:58 07/07/17 06:00 Intake & Output 07/06/17 07/07/17 07/08/17 06:59 06:59 06:59 Intake Total 2055 889 Output Total 1999 1500 Balance 55 -611 Weight 72.3 kg 70.2 kg General appearance: PRESENT: no acute distress, well-developed, well-nourished Head exam: PRESENT: atraumatic, normocephalic Eye exam: PRESENT: EOMI, PERRLA. ABSENT: nystagmus, periorbital swelling, scleral icterus Mouth exam: PRESENT: moist Throat exam: ABSENT: tonsillar exudate, tonsillogmegaly Neck exam: ABSENT: meningismus, tenderness, thyromegaly Respiratory exam: PRESENT: symmetrical, unlabored. ABSENT: tachypnea, wheezes Cardiovascular exam: PRESENT: RRR, +S1, +S2 GI/Abdominal exam: PRESENT: soft. ABSENT: rebound, rigid, tenderness Extremities exam: ABSENT: joint swelling Musculoskeletal exam: PRESENT: full ROM Neurological exam: PRESENT: oriented to time, oriented to situation, CN II-XII grossly intact Psychiatric exam: PRESENT: appropriate affect Focused psych exam: ABSENT: restlessness Skin exam: PRESENT: normal color. ABSENT: mottled, urticaria, vesicles Results Laboratory Results: 07/07/17 04:10 07/04/17 05:04 07/07/17 04:10 WBC 5.5 RBC 4.59 Hgb 12.7 L Hct 39.9 MCV 87 MCH 27.6 MCHC 31.8 L RDW 15.6 H Plt Count 216 Seg Neutrophils % Not Reportable Lymphocytes % Not Reportable Monocytes % Not Reportable Eosinophils % Not Reportable Basophils % Not Reportable Absolute Neutrophils Not Reportable Absolute Lymphocytes Not Reportable Absolute Monocytes Not Reportable Absolute Eosinophils Not Reportable Absolute Basophils Not Reportable Impressions: Abdomen/Pelvis CT 06/25/17 14:01 IMPRESSION: NO SIGNIFICANT OR ACUTE FINDING IN THE ABDOMEN OR PELVIS ON CT SCAN WITH IV CONTRAST. Chest X-Ray 06/29/17 00:00 IMPRESSION: COPD. NO ACUTE RADIOGRAPHIC FINDING IN THE CHEST. KUB X-Ray 06/30/17 00:00 IMPRESSION: NO RADIOGRAPHIC EVIDENCE FOR ACUTE ABDOMINAL DISEASE. Guidance Fluoroscopy 07/06/17 00:00 IMPRESSION: SUCCESSFUL PLACEMENT OF A 5 FR DUAL LUMEN 42 CM PICC IN THE LEFT BASILIC VEIN. Interventional Vascular Procedure 07/06/17 00:00 IMPRESSION: SUCCESSFUL PLACEMENT OF A 5 FR DUAL LUMEN 42 CM PICC IN THE LEFT BASILIC VEIN. PICC Line Insertion 07/06/17 00:00 IMPRESSION: SUCCESSFUL PLACEMENT OF A 5 FR DUAL LUMEN 42 CM PICC IN THE LEFT BASILIC VEIN. Assessment & Plan - Diagnosis (1) Constipation Is this a current diagnosis for this admission?: Yes Plan: chronic constipation needs outpatient regimen to keep stools soft ? possible Miralax has several polyps, likely going to be adenomas , depending on clinical situation in 5 years, may need repeat surveillance colonoscopy no obstruction is noted family is updated (2) Feeding difficulties Is this a current diagnosis for this admission?: Yes
[2017-07-07] MEDS ORDERED: POLYETHYLENE GLYCOL 3350 POWDER 17 GM/1 PACKET PEG SCH (10:00)
[2017-07-07] MEDS: METOCLOPRAMIDE HCL ORAL SOLN 10 MG/10 ML UDCUP PEG SCH ×3 (10:38→16:14)
[2017-07-07] MEDS: OLANZAPINE 5 MG TABLET PEG SCH (10:38)
[2017-07-07] MEDS: FINASTERIDE 5 MG TABLET PO SCH (10:39)
[2017-07-07] MEDS: METOPROLOL TARTRATE 25 MG TABLET PEG SCH (10:39)
[2017-07-07] MEDS: PREDNISONE 5 MG TABLET PEG SCH (10:39)
[2017-07-07] MEDS: ESCITALOPRAM OXALATE 10 MG TABLET PEG SCH (10:39)
[2017-07-07] MEDS: BUDESONIDE/FORMOTEROL 160-4.5 MCG 60 PUFF/6 GM MDI IH SCH (10:48)
[2017-07-07] MEDS: ASPIRIN 325 MG TABLET PEG SCH (10:53)
[2017-07-07] MEDS: NORMAL SALINE 10 ML SDV (SCHEDULED) IV SCH (10:54)
[2017-07-07] MEDS: LACTULOSE SYRUP 20 GM/30 ML UDCUP PEG SCH (10:59)
--- NOTE | 2017-07-07 11:57 | PDOC DISCHARGE SUMMARY ---
General - Admit/Disc Date/PCP Admission Date/Primary Care Provider: 06/25/17 17:22 FIDEL HANDY, Discharge Date: 07/07/17 - Discharge Diagnosis (1) Sepsis Is this a current diagnosis for this admission?: Yes Summary: presumed secondary to acute cystitis: Patient has completed treatment (2) Acute cystitis Is this a current diagnosis for this admission?: Yes Summary: Presumed acute cystitis: Patient has completed treatment. (3) CHF (congestive heart failure) Is this a current diagnosis for this admission?: Yes Summary: Chronic. (4) CVA (cerebral vascular accident) Is this a current diagnosis for this admission?: Yes Summary: Chronic. No acute events. (5) Urinary retention Is this a current diagnosis for this admission?: Yes Summary: She was seen by urology. Patient has Pickard anchored. Patient has been placed on Flomax and Proscar (6) Hypernatremia Is this a current diagnosis for this admission?: Yes Summary: Secondary to dehydration: Resolved (7) Schizoaffective disorder Is this a current diagnosis for this admission?: Yes Summary: Patient will continue on current home medication. (8) Feeding difficulties Is this a current diagnosis for this admission?: Yes Summary: Pt has been placed on Reglan low dose which appears to have helped with tolerating feeds. Patient was evaluated by GI were patient was found to have 3 polyps that were removed. (9) Constipation Is this a current diagnosis for this admission?: Yes Summary: Pt has been placed on lactulose, MiraLAX, and Colace (10) Dehydration Is this a current diagnosis for this admission?: Yes (11) Colonic polyp Is this a current diagnosis for this admission?: Yes Summary: Pt on c-scopy where he was found to have 3 polyps. Pt's Xarelto should be restarted on July 102017. Patient will need to follow-up with GI in 2 weeks - Additional Information Resuscitation Status: Do Not Resuscitate Discharge Diet: Tube Feeding (Comments) - Glucerna 1.2 at 40cc/hour and Free Water 150cc Q4 hours. Discharge Activity: Bedrest Prescriptions: Metoclopramide HCl [Reglan Oral Soln 10 mg/10 ml Udcup] 2.5 mg PEG ACHS #30 udc Home Medications: Aspirin [Aspirin 325 mg Tablet] 325 mg PEG DAILY 06/26/17 Atorvastatin Calcium [Lipitor 80 mg Tablet] 80 mg PEG QHS 06/26/17 Bisacodyl [Dulcolax 10 mg Supp.rect] 10 mg DC DAILYP PRN 06/26/17 Budesonide/Formoterol Fumarate [Symbicort HFA 160-4.5 mcg Inhaler 6 gm] 2 puff IH Q12 06/26/17 Escitalopram Oxalate [Lexapro 10 mg Tablet] 10 mg PEG DAILY 06/26/17 Ipratropium/Albuterol Sulfate [Duoneb 3 ml Ampul] 1 vial NEB Q6 06/26/17 Lansoprazole [Prevacid 30 mg Odt Tablet] 30 mg PEG DAILY 06/26/17 Metoprolol Tartrate [Lopressor 25 mg Tablet] 12.5 mg PEG Q12 06/26/17 Olanzapine [Zyprexa 5 mg Tablet] 5 mg PEG QHS 06/26/17 Aspirin [Aspirin 325 mg Tablet] 325 mg PEG DAILY tablet 07/07/17 Finasteride [Proscar 5 mg Tablet] 5 mg PO DAILY tablet 07/07/17 Insulin Lispro [Humalog Insulin (Lispro) 100 unit/mL] 0 - 12 unit SUBCUT ACHSP PRN unit 07/07/17 Lactulose [Cephulac Syrup 20 gm/30 ml Udcup] 10 gm PEG DAILY udc 07/07/17 Lansoprazole [Prevacid 30 mg Odt Tablet] 30 mg PEG Q6AM tab.rap.dr 07/07/17 Metoclopramide HCl [Reglan Oral Soln 10 mg/10 ml Udcup] 2.5 mg PEG ACHS #30 udc 07/07/17 Polyethylene Glycol 3350 [Miralax Powder 17 gm/Packet] 17 gm PEG DAILY powd.pack 07/07/17 Rivaroxaban [Xarelto 15 mg Tablet] 15 mg PEG DAILY #0 07/07/17 Tamsulosin HCl [Flomax 0.4 mg Cap.sr] 0.4 mg PO PCLUNCH cap.sr.24h 07/07/17 History of Present Illness Patient complains of: Hypotension nausea and vomiting History of Present Illness: DALY PORTILLO SR is a 71 year old male that is the hospital due to hypotension nausea and vomiting. Hospital Course Hospital Course: Patient is a 71-year-old gentleman that presents to the hospital due to hypotension nausea and vomiting. Patient was suspected to be septic secondary to acute cystitis. Patient was placed on antibiotics and given IV fluids. Patient's urine did not demonstrate growth however there was concern that patient had been given antibiotics prior to culture. Patient was found to be dehydrated and therefore was given IV fluids for volume expansion. Patient was noted to not tolerate tube feeds and therefore patient was placed on low-dose Reglan which helped improve patient's GI motility. Patient was seen by GI where he underwent colonoscopy which demonstrated polyps and patient had 3 biopsies done. Xarelto has been held and should be restarted on July 10, 2017. GI recommended that patient be on a good bowel regimen to help prevent constipation. Patient has done well overall and no further issues were encountered. Physical Exam Vital Signs: Temp Pulse Resp BP Pulse Ox 97.4 F 84 18 141/87 H 93 07/07/17 07:58 07/07/17 09:53 07/07/17 09:53 07/07/17 07:58 07/07/17 09:53 Intake & Output 07/06/17 07/07/17 07/08/17 06:59 06:59 06:59 Intake Total 2055 889 Output Total 2000 1500 Balance 55 -611 Weight 72.3 kg 70.2 kg General appearance: PRESENT: well-developed, well-nourished Head exam: PRESENT: atraumatic, normocephalic Eye exam: PRESENT: conjunctiva pink, EOMI. ABSENT: scleral icterus Ear exam: PRESENT: normal external ear exam Mouth exam: PRESENT: moist, tongue midline Neck exam: ABSENT: carotid bruit, JVD, lymphadenopathy, thyromegaly Respiratory exam: PRESENT: clear to auscultation eric. ABSENT: rales, rhonchi, wheezes Cardiovascular exam: PRESENT: RRR. ABSENT: diastolic murmur, rubs, systolic murmur Pulses: PRESENT: normal dorsalis pedis pul Vascular exam: PRESENT: normal capillary refill GI/Abdominal exam: PRESENT: normal bowel sounds, soft, other - PEG in place. ABSENT: distended, guarding, mass, organolmegaly, rebound, tenderness Rectal exam: PRESENT: deferred Extremities exam: ABSENT: calf tenderness, clubbing, pedal edema Neurological exam: PRESENT: alert, awake, oriented to person. ABSENT: motor sensory deficit Skin exam: PRESENT: dry, intact, warm. ABSENT: cyanosis, rash Results Laboratory Results: 07/07/17 04:10 07/04/17 05:04 07/07/17 04:10 WBC 5.5 RBC 4.59 Hgb 12.7 L Hct 39.9 MCV 87 MCH 27.6 MCHC 31.8 L RDW 15.6 H Plt Count 216 Seg Neutrophils % Not Reportable Lymphocytes % Not Reportable Monocytes % Not Reportable Eosinophils % Not Reportable Basophils % Not Reportable Absolute Neutrophils Not Reportable Absolute Lymphocytes Not Reportable Absolute Monocytes Not Reportable Absolute Eosinophils Not Reportable Absolute Basophils Not Reportable Impressions: Abdomen/Pelvis CT 06/25/17 14:01 IMPRESSION: NO SIGNIFICANT OR ACUTE FINDING IN THE ABDOMEN OR PELVIS ON CT SCAN WITH IV CONTRAST. Chest X-Ray 06/29/17 00:00 IMPRESSION: COPD. NO ACUTE RADIOGRAPHIC FINDING IN THE CHEST. KUB X-Ray 06/30/17 00:00 IMPRESSION: NO RADIOGRAPHIC EVIDENCE FOR ACUTE ABDOMINAL DISEASE. Guidance Fluoroscopy 07/06/17 00:00 IMPRESSION: SUCCESSFUL PLACEMENT OF A 5 FR DUAL LUMEN 42 CM PICC IN THE LEFT BASILIC VEIN. Interventional Vascular Procedure 07/06/17 00:00 IMPRESSION: SUCCESSFUL PLACEMENT OF A 5 FR DUAL LUMEN 42 CM PICC IN THE LEFT BASILIC VEIN. PICC Line Insertion 07/06/17 00:00 IMPRESSION: SUCCESSFUL PLACEMENT OF A 5 FR DUAL LUMEN 42 CM PICC IN THE LEFT BASILIC VEIN. Qualifiers - * PATEINT BEING DISCHARGED WITH ANY OF THE FOLLOWING DIAGNOSIS?: No Plan Time Spent: Greater than 30 Minutes
[2017-07-07] MEDS: TAMSULOSIN HCL 0.4 MG CAP.SR.24H PO SCH (14:06)
[2017-07-07 15:48] VITALS: BP 133/73
== END 2017-07-07 17:20 | DRG 872 ==
LOC: ER 12:15 → EH 17:22 → 3S 21:23
PROVIDERS: ADMIT Emergency Medicine; ATTEND Emergency Medicine
PROC: 02HV33Z Insertion of Infusion Device into Superior Vena Cava, Percutaneous Approach (ICD-10-PCS; 2017-06-27)
PROC: B518ZZA Fluoroscopy of Superior Vena Cava, Guidance (ICD-10-PCS; 2017-06-27)
PROC: B548ZZA Ultrasonography of Superior Vena Cava, Guidance (ICD-10-PCS; 2017-06-27)
PROC: B548ZZA Ultrasonography of Superior Vena Cava, Guidance (ICD-10-PCS; 2017-07-06)
PROC: 0DBK8ZX Excision of Ascending Colon, Via Natural or Artificial Opening Endoscopic, Diagnostic (ICD-10-PCS; 2017-07-06)
PROC: 0DBN8ZX Excision of Sigmoid Colon, Via Natural or Artificial Opening Endoscopic, Diagnostic (ICD-10-PCS; 2017-07-06)
PROC: 02HV33Z Insertion of Infusion Device into Superior Vena Cava, Percutaneous Approach (ICD-10-PCS; principal; 2017-07-06 13:30)
DX: A41.9 Sepsis, unspecified organism (principal); E87.0 Hyperosmolality and hypernatremia; I50.32 Chronic diastolic (congestive) heart failure; I69.920 Aphasia following unspecified cerebrovascular disease; I11.0 Hypertensive heart disease with heart failure; N30.00 Acute cystitis without hematuria; F25.9 Schizoaffective disorder, unspecified; I25.2 Old myocardial infarction; K63.5 Polyp of colon; I87.2 Venous insufficiency (chronic) (peripheral); J44.9 Chronic obstructive pulmonary disease, unspecified; E86.0 Dehydration; R33.9 Retention of urine, unspecified; B96.89 Other specified bacterial agents as the cause of diseases classified elsewhere; K64.8 Other hemorrhoids; F79 Unspecified intellectual disabilities; K59.09 Other constipation; Z66 Do not resuscitate; F41.9 Anxiety disorder, unspecified; Z87.891 Personal history of nicotine dependence; Z82.49 Family history of ischemic heart disease and other diseases of the circulatory system; Z82.5 Family history of asthma and other chronic lower respiratory diseases; Z88.1 Allergy status to other antibiotic agents; Z93.1 Gastrostomy status; Z79.82 Long term (current) use of aspirin; Z79.899 Other long term (current) drug therapy; I69.921 Dysphasia following unspecified cerebrovascular disease; Z79.02 Long term (current) use of antithrombotics/antiplatelets
CPT/HCPCS: 36415; 36569; 45385; 51701; 71045; 74018; 74177; 76937; 77001; 80048; 80053; 80069; 81001; 82330; 82550; 82553; 82803; 82962; 83605; 83690; 83735; 83880; 84100; 84132; 84484; 85025; 85027; 87040; 87086; 88305; 93005; 93010; 96365; 99291; J0171; J0696; J1200; J1450; J1610; J1642; J1940; J2250; J2310; J2405; J2930; J3010; J3490; J7030; J7060; J7512; J7620

== ENCOUNTER 2017-08-15 20:57 | Emergency (ER) | payer MEDICARE ==
--- NOTE | 2017-08-15 22:15 | ER Document Report ---
ED GI/ - General Chief Complaint: Urinary Problem Stated Complaint: TESTICULAR SWELLING Time Seen by Provider: 08/15/17 21:48 Notes: 72-year-old male to emergency department chief complaint of urethral tear. Patient has indwelling Pickard catheter. Has had in for several months status post stroke recently. Discharged to nursing facility. Patient's sister states that he was uncomfortable today. Noticed that he had abnormal urethral meatus with Pickard appeared to be ripped at the urethral meatus/glans penis. No active bleeding at this time. Patient's sister states that no one has told her that anything was wrong but he has been complaining of pain for the last couple of days. TRAVEL OUTSIDE OF THE [place] IN LAST 30 DAYS: No - HPI Patient complains to provider of: Dysuria, Pickard catheter problem - Related Data Allergies/Adverse Reactions: levofloxacin Adverse Reaction (Verified 06/17/17 05:44) Hives Past Medical History - General Information source: Relative Cannot obtain history due to: Other - Aphasia - Social History Smoking Status: Never Smoker Cigarette use (# per day): No Frequency of alcohol use: None Drug Abuse: None Lives with: [facility] Family History: CAD, COPD, Hypertension Patient has suicidal ideation: No Patient has homicidal ideation: No - Past Medical History Cardiac Medical History: Reports: Hx Congestive Heart Failure, Hx Heart Attack, Hx Hypertension Pulmonary Medical History: Reports: Hx COPD Neurological Medical History: Reports: Hx Cerebrovascular Accident. Denies: Hx Seizures Renal/ Medical History: Denies: Hx Peritoneal Dialysis Psychiatric Medical History: Reports: Hx Depression, Hx Schizoaffective Disorder Past Surgical History: Reports: Other - ? previous TURP - Immunizations Hx Pneumococcal Vaccination: 04/27/16 Review of Systems - Review of Systems -: Yes ROS unobtainable due to patient's medical condition Physical Exam - Vital signs Vitals: Temp Pulse Resp BP Pulse Ox 97.4 F 84 18 106/68 98 08/15/17 21:10 08/15/17 21:10 08/15/17 21:10 08/15/17 21:10 08/15/17 21:10 Interpretation: Normal - General General appearance: Appears well, Alert - HEENT Head: Normocephalic, Atraumatic Eyes: Normal Pupils: PERRL - Respiratory Respiratory status: No respiratory distress Chest status: Nontender Breath sounds: Normal Chest palpation: Normal - Cardiovascular Rhythm: Regular Heart sounds: Normal auscultation Murmur: No - Abdominal Inspection: Normal Distension: No distension Bowel sounds: Normal Tenderness: Nontender Organomegaly: No organomegaly - Genitourinary Inspection: Other - Has indwelling Pickard catheter present. There appears to be a urethral tear from the Pickard which splits the glans urethra down to the penile shaft in the in inferior shaft area. No active bleeding. - Back Back: Normal, Nontender - Extremities General upper extremity: Normal inspection, Nontender, Normal color, Normal ROM , Normal temperature General lower extremity: Normal inspection, Nontender, Normal color, Normal ROM , Normal temperature, Normal weight bearing. No: Delon's sign - Neurological Neuro grossly intact: Yes Cognition: Other - With previous sequela of stroke unable to verbally communicate but does seem to answer questions appropriately with head nods [place] Coma Scale Eye Opening: Spontaneous [place] Coma Scale Verbal: Oriented [place] Coma Scale Motor: Obeys Commands Annika Coma Scale Total: 15 Speech: Expressive aphasia Motor strength normal: LUE, RUE, LLE. No: RLE - Skin Skin Temperature: Warm Skin Moisture: Dry Skin Color: Normal Course - Re-evaluation Re-evalutation: 08/15/17 23:24 Patient has urethral laceration from indwelling Pickard catheter. Patient will need to be seen by urology as an outpatient. Will leave Pickard in place at this time. Will place on antibiotics. Will give some anti-inflammatories for pain as well. Discussed case with the patient's sister. Patient will need to be seen as an outpatient by his primary care doctor as well as a urologist. Will DC back to alf this evening. - Vital Signs Vital signs: Temp Pulse Resp BP Pulse Ox 97.4 F 84 18 106/68 98 08/15/17 21:10 08/15/17 21:10 08/15/17 21:10 08/15/17 21:10 08/15/17 21:10 Discharge - Discharge Clinical Impression: Tear of urethra Qualifiers: Encounter type: initial encounter Qualified Code(s): S37.33XA - Laceration of urethra, initial encounter Condition: Good Disposition: HOME, SELF-CARE Additional Instructions: Urethral tear You have a tear of the urethra from trauma associated with the Pickard catheter. It will be very important that you follow-up with your regular doctor for an outpatient evaluation and urology follow-up. This needs to happen urgently. In the event that you are unable to speak with the regular doctor and unable to get an urgent follow-up with urologist please return. We will start you on antibiotics at this time as well to avoid infection of the skin on the penis. Please continue with all of your regular medications. Prescriptions: Cephalexin Monohydrate [Keflex 250 mg/5 ml Susp] 500 mg PEG TID 7 Days #300 ml Referrals: YAMILET GALLARDO MD [EMERITUS] - Follow up in 3-5 days FIDEL HANDY DO [Primary Care Provider] - Follow up in 3-5 days
[2017-08-15] MEDS ORDERED: CEPHALEXIN 250 MG/5 ML SUSP 100 ML PEG ONE (23:19)
[2017-08-15] MEDS ORDERED: IBUPROFEN SUSP 100 MG/5 ML ORAL SYRINGE PEG ONE (23:20)
[2017-08-15] MEDS ORDERED: CEPHALEXIN 500 MG CAPSULE PEG ONE (23:59)
[2017-08-16 00:04] LABS: APPEARANCE,URINE CLOUDY; BILIRUBIN,URINE NEGATIVE (NEGATIVE); CALCIUM OXALATE CRYSTALS,URINE MODERATE /HPF; COLOR,URINE AMBER; GLUCOSE, URINE NEGATIVE (NEGATIVE); KETONES,URINE NEGATIVE (NEGATIVE); LEUKOCYTE ESTERASE,URINE LARGE (NEGATIVE); NITRITE,URINE POSITIVE (NEGATIVE); PROTEIN,URINE 100 mg/dL (NEGATIVE); URINE SPECIFIC GRAVITY 1.027
[2017-08-16 02:04] VITALS: BP 110/64
== END 2017-08-16 00:30 | disposition home or self-care (01) ==
LOC: ER 20:57
DX: S37.33XA Laceration of urethra, initial encounter (principal); Y73.8 Miscellaneous gastroenterology and urology devices associated with adverse incidents, not elsewhere classified; J44.9 Chronic obstructive pulmonary disease, unspecified; I69.320 Aphasia following cerebral infarction; I10 Essential (primary) hypertension
CPT/HCPCS: 99284; 87086; 87088; 81001; 87186; A9270 ×2; J3490

== ENCOUNTER 2017-08-24 10:30 | Inpatient (IN) | payer MEDICARE ==
[2017-08-24] MEDS ORDERED: IPRATROPIUM/ALBUTEROL 0.5-2.5 MG/3 ML AMPUL NEB ONE ×2 (10:52→11:40)
--- NOTE | 2017-08-24 11:18 | ER Document Report ---
ED General - General Stated Complaint: ABDOMINAL PAIN Time Seen by Provider: 08/24/17 10:35 Mode of Arrival: Ambulatory Information source: Patient Notes: 72-year-old male history of previous stroke G-tube presents from facility with complaints of difficulty breathing breathing hard. Care facility notes patient was well 30 minutes prior to this episode. pt is nonverbal has no complaints but is noted to be having abdominal breathing TRAVEL OUTSIDE OF THE [place] IN LAST 30 DAYS: No - HPI Onset: Just prior to arrival Onset/Duration: Sudden Quality of pain: Other - Unclear Severity: Moderate Pain Level: 1 Associated symptoms: Shortness of breath, Other Exacerbated by: Denies Relieved by: Denies Similar symptoms previously: Yes Recently seen / treated by doctor: Yes - Related Data Allergies/Adverse Reactions: levofloxacin Adverse Reaction (Verified 06/17/17 05:44) Hives Past Medical History - Social History Smoking Status: Never Smoker Cigarette use (# per day): No Chew tobacco use (# tins/day): No Smoking Education Provided: No Family History: CAD, COPD, Hypertension - Past Medical History Cardiac Medical History: Reports: Hx Congestive Heart Failure, Hx Heart Attack, Hx Hypertension Pulmonary Medical History: Reports: Hx COPD Neurological Medical History: Reports: Hx Cerebrovascular Accident. Denies: Hx Seizures Renal/ Medical History: Denies: Hx Peritoneal Dialysis Psychiatric Medical History: Reports: Hx Depression, Hx Schizoaffective Disorder Past Surgical History: Reports: Other - ? previous TURP - Immunizations Hx Pneumococcal Vaccination: 04/27/16 Review of Systems - Review of Systems Notes: REVIEW OF SYSTEMS: CONSTITUTIONAL : Denies fever, chills, or sweats. Denies recent illness. EENT: Denies eye, ear, throat, or mouth pain or symptoms. Denies nasal or sinus congestion or discharge. Denies throat, tongue, or mouth swelling or difficulty swallowing. CARDIOVASCULAR: Denies chest pain. Denies palpitations or racing or irregular heart beat. Denies ankle edema. RESPIRATORY: Difficulty breathing GASTROINTESTINAL: Abdominal pain questionable GENITOURINARY: Denies difficulty urinating, painful urination, burning, frequency, blood in urine, or discharge. MUSCULOSKELETAL: Denies back or neck pain or stiffness. Denies joint pain or swelling. SKIN: Denies rash, lesions or sores. HEMATOLOGIC : Denies easy bruising or bleeding. LYMPHATIC: Denies swollen, enlarged glands. NEUROLOGICAL: Denies confusion or altered mental status. Denies passing out or loss of consciousness. Denies dizziness or lightheadedness. Denies headache. Denies weakness or paralysis or loss of use of either side. Denies problems with gait or speech. Denies sensory loss, numbness, or tingling. Denies seizures. PSYCHIATRIC: Denies anxiety or stress. Denies depression, suicidal ideation, or homicidal ideation. ALL OTHER SYSTEMS REVIEWED AND NEGATIVE. Dictation was performed using [employer] voice recognition software PHYSICAL EXAMINATION: GENERAL: Chronically ill-appearing male HEAD: Atraumatic, normocephalic. EYES: Pupils equal round and reactive to light, extraocular movements intact, sclera anicteric, conjunctiva are normal. ENT: Nares patent, oropharynx clear without exudates. Moist mucous membranes. NECK: Normal range of motion, supple without lymphadenopathy LUNGS: Coarse breath sounds all throughout HEART: Regular rate and rhythm without murmurs ABDOMEN: Abdominal retractions noted J-tube in place Musculoskeletal: Normal range of motion, no pitting or edema. No cyanosis. NEUROLOGICAL: Patient follows commands PSYCH: Normal mood, normal affect. SKIN: Warm, Dry, normal turgor, no rashes or lesions noted. Physical Exam - Vital signs Vitals: Resp 36 H 08/24/17 10:40 Course - Re-evaluation Re-evalutation: 08/24/17 11:20 This appears to be more respiratory rather than abdominal in nature, septic workup pending patient is noted to be quite tachycardic 08/24/17 14:53 Patient's presentation is most consistent with COPD exacerbation lactate was elevated at 4.3, the urinalysis has questionable infectious source at this is a indwelling catheter no pneumonia is noted for patient does not meet criteria for sepsis at this time given that the urine can be just a colonization Patient will be admitted nonetheless for further evaluation care - Vital Signs Vital signs: Temp Pulse Resp BP Pulse Ox 97.9 F 8 L 124/84 96 08/24/17 13:00 08/24/17 14:01 08/24/17 14:00 08/24/17 11:00 - Laboratory Result Diagrams: 08/24/17 13:20 08/24/17 13:20 Laboratory results interpreted by me: 08/24/17 08/24/17 08/24/17 12:56 13:20 13:20 Hgb 12.7 L RDW 15.1 H Seg Neutrophils % 80.4 H Lymphocytes % 12.5 L Absolute Neutrophils 8.3 H VBG pH VBG pCO2 Sodium 152.3 H Chloride 110 H Glucose 121 H Lactic Acid Urine Protein 100 H Urine Blood LARGE H Ur Leukocyte Esterase LARGE H Urine Ascorbic Acid 40 H 08/24/17 08/24/17 13:20 13:20 Hgb RDW Seg Neutrophils % Lymphocytes % Absolute Neutrophils VBG pH 7.23 L VBG pCO2 68.9 H* Sodium Chloride Glucose Lactic Acid 4.2 H Urine Protein Urine Blood Ur Leukocyte Esterase Urine Ascorbic Acid - Diagnostic Test Radiology reviewed: Image reviewed - Chest x-ray is consistent with COPD two- view, Reports reviewed Critical Care Note - Critical Care Note Total time excluding time spent on procedures (mins): 35 Comments: 35 minutes of critical care time spent in direct contact evaluating and reevaluating the patient, treating symptoms, reviewing labs and studies and speaking with family and consultants excluding any procedures Discharge - Discharge Clinical Impression: COPD exacerbation, Expressive aphasia, Acute respiratory failure with hypoxia and hypercapnia CHF (congestive heart failure) Qualifiers: Heart failure type: unspecified Heart failure chronicity: unspecified Qualified Code(s): I50.9 - Heart failure, unspecified
[2017-08-24] MEDS: NORMAL SALINE 1000 ML 1,000 ML IV PRN ×2 (11:19→12:54)
--- NOTE | 2017-08-24 12:31 | RADIOLOGY REPORT (SQ) ---
EXAM DESCRIPTION: CHEST SINGLE VIEW COMPLETED DATE/TIME: 08/24/2017 12:23 pm REASON FOR STUDY: bed 12 sepsis protocol COMPARISON: 06/29/2017 NUMBER OF VIEWS: One view. TECHNIQUE: Single frontal radiographic view of the chest acquired. LIMITATIONS: Positioning. Skin folds. FINDINGS: LUNGS AND PLEURA: No opacities, masses or pneumothorax. No pleural effusion. Attenuated bl ood vessels and flattened abhijit-diaphragms. MEDIASTINUM AND HILAR STRUCTURES: No masses. Contour normal. HEART AND VASCULAR STRUCTURES: Heart normal in size. Normal vasculature. BONES: No acute findings. HARDWARE: None in the chest. OTHER: No other significant finding. IMPRESSION: COPD. NO ACUTE RADIOGRAPHIC FINDING IN THE CHEST. TECHNICAL DOCUMENTATION: JOB ID: [id number] [employer]- All Rights Reserved Reading location - IP/workstation name: [email or web address]
--- NOTE | 2017-08-24 13:34 | EKG REPORT ---
SEVERITY:- ABNORMAL ECG - SINUS TACHYCARDIA LEFT ANTERIOR FASCICULAR BLOCK ANTEROLATERAL INFARCT, OLD : Confirmed by: Rigo Arredondo MD 24-Aug-2017 13:33:09
[2017-08-24 13:37] LABS: ABSOLUTE EOSINOPHILS # (AUTO) 0.1 10^3/uL (0.0-0.6); ABSOLUTE LYMPHOCYTES (AUTO) 1.3 10^3/uL (0.5-4.7); ABSOLUTE MONOCYTES (AUTO) 0.6 10^3/uL (0.1-1.4); ABSOLUTE NEUT (AUTO) 8.3 10^3/uL (1.7-8.2); BASOPHILS % (AUTO) 0.2 % (0-2); EOSINOPHILS % (AUTO) 0.9 % (0-6); HEMATOCRIT 39.7 % (37.9-51.0); HEMOGLOBIN 12.7 g/dL (13.5-17.0); LYMPHOCYTES % (AUTO) 12.5 % (13-45); MEAN CORPUSCULAR HEMOGLOBIN 28.7 pg (27.0-33.4); MEAN CORPUSCULAR HGB CONC 32.1 g/dL (32.0-36.0); MEAN CORPUSCULAR VOLUME 89 fl (80-97); PLATELET COUNT 214 10^3/uL (150-450); RED BLOOD COUNT 4.44 10^6/uL (4.35-5.55); RED CELL DISTRIBUTION WIDTH 15.1 % (11.5-14.0); SEGMENTED NEUTROPHILS % (AUTO) 80.4 % (42-78); TOTAL CELLS COUNTED % (AUTO) 100 %; WHITE BLOOD COUNT 10.3 10^3/uL (4.0-10.5)
[2017-08-24 13:46] LABS: INTERNATIONAL RATION (INR) 0.99; PROTHROMBIN TIME 13.6 SEC (11.4-15.4); VENOUS BLOOD BASE EXCESS -0.9 mmol/L; VENOUS BLOOD HCO3 28.1 mmol/L (20-32); VENOUS BLOOD PH 7.23 (7.30-7.42)
[2017-08-24 13:51] LABS: VENOUS BLOOD PCO2 68.9 mmHg (35-63)
[2017-08-24 14:02] LABS: APPEARANCE,URINE CLOUDY; BILIRUBIN,URINE NEGATIVE (NEGATIVE); CALCIUM OXALATE CRYSTALS,URINE MANY /HPF; COLOR,URINE AMBER; GLUCOSE, URINE NEGATIVE (NEGATIVE); KETONES,URINE NEGATIVE (NEGATIVE); LEUKOCYTE ESTERASE,URINE LARGE (NEGATIVE); NITRITE,URINE NEGATIVE (NEGATIVE); PROTEIN,URINE 100 mg/dL (NEGATIVE); URINE SPECIFIC GRAVITY 1.027; UROBILINOGEN,URINE NEGATIVE mg/dL (<2.0)
[2017-08-24 14:31] LABS: ALANINE AMINOTRANSFERASE 58 U/L (21-72); ALBUMIN 3.6 g/dL (3.5-5.0); ALKALINE PHOSPHATASE 59 U/L (38-126); ANION GAP 15 (5-19); ASPARTATE AMINO TRANSFERASE 33 U/L (17-59); BILIRUBIN,DIRECT 0.4 mg/dL (0.0-0.4); BILIRUBIN,TOTAL 0.4 mg/dL (0.2-1.3); BLOOD UREA NITROGEN 20 mg/dL (7-20); CALCIUM 10.2 mg/dL (8.4-10.2); CARBON DIOXIDE 27 mmol/L (22-30); CHLORIDE 110 mmol/L (98-107); GLUCOSE 121 mg/dL (75-110); POTASSIUM 4.9 mmol/L (3.6-5.0); SODIUM 152.3 mmol/L (137-145); TOTAL PROTEIN 6.6 g/dL (6.3-8.2)
[2017-08-24] MEDS ORDERED: CEFTRIAXONE INJ 1000 MG VIAL IV ONE (14:36)
[2017-08-24] MEDS ORDERED: METHYLPREDNISOLONE INJ 125 MG/2 ML SDV IV ONE (14:43)
[2017-08-24] MEDS ORDERED: ACETAMINOPHEN 325 MG TABLET PO PRN (16:16)
[2017-08-24] MEDS ORDERED: ALBUTEROL SULFATE 0.083% NEB 2.5 MG/3 ML AMPUL NEB PRN (16:16)
[2017-08-24] MEDS ORDERED: ONDANSETRON HCL INJ/PF 4 MG/2 ML SDV IV PRN (16:16)
[2017-08-24] MEDS ORDERED: LANSOPRAZOLE 30 MG TAB.RAP.DR PO ONE (17:30)
[2017-08-24] MEDS ORDERED: IPRATROPIUM/ALBUTEROL 0.5-2.5 MG/3 ML AMPUL NEB SCH (18:00)
--- NOTE | 2017-08-24 18:50 | PDOC H&P ---
History of Present Illness Admission Date/PCP: FIDEL HANDY, DO 08/24/17 Patient complains of: Shortness of breath History of Present Illness: DALY PORTILLO SR is a 72 year old male who lives in a SNF with past medical history of: Prior stroke with expressive aphasia Indwelling Pickard catheter BPH Systolic CHF, left ventricular ejection fraction of 45% L sided hemiparesis Dysphagia, PEG tube Schizoaffective disorder COPD on 2 L oxygen by nasal cannula CAD HTN On chronic anticoagulation He presented to the emergency room with shortness of breath tachypnea and was found to have extensive wheezing and acute hypoxic and hypercapnic respiratory failure due to COPD exacerbation. Chest x-ray shows no acute infiltrates. He was treated with IV steroids, duo nebs and 1 dose of Rocephin and referred for admission. Lactic acid was 4.2- most likely due to transient hypoxia, no evidence of sepsis. His sister Abdullahi (phone number [phone]) is at the bedside. She is his healthcare POA and states that he wishes to be a DNR/DNI. He has expressive aphasia which is his baseline. Outpatient medications Xarelto 15 mg daily Symbicort 2 puffs twice a day Flomax 0.4 mg daily Reglan 2.5 mg every 6 hours Nebulizer as needed Atorvastatin 40 mg at bedtime Dulcolax suppository daily as needed Lactulose 15 mL twice daily Tylenol as needed Humalog sliding scale Aspirin 325 mg daily Past Medical History Cardiac Medical History: Reports: Congestive Heart Failure, Myocardial Infarction, Hypertension Pulmonary Medical History: Reports: Chronic Obstructive Pulmonary Disease (COPD) Neurological Medical History: Denies: Seizures Endocrine Medical History: Reports: Diabetes Mellitus Type 2 Psychiatric Medical History: Reports: Depression, Schizoaffective Disorder Past Surgical History Past Surgical History: Reports: Other - ? previous TURP Social History Information Source: Relative Smoking Status: Never Smoker Frequency of Alcohol Use: None Hx Recreational Drug Use: No Drugs: None Hx Prescription Drug Abuse: No Family History Family History: CAD, COPD, Hypertension Parental Family History Reviewed: No Children Family History Reviewed: No Sibling(s) Family History Reviewed.: No Medication/Allergy Home Medications: Acetaminophen [Tylenol 325 mg Tablet] 650 mg PEG Q6HP PRN 08/24/17 Aspirin [Aspirin 325 mg Tablet] 325 mg PEG DAILY 08/24/17 Atorvastatin Calcium [Lipitor 40 mg Tablet] 40 mg PEG QHS 05/10/18 Budesonide/Formoterol Fumarate [Symbicort 160-4.5 Mcg Inhaler] 2 puff PO Q12 02/01 Escitalopram Oxalate [Lexapro 10 mg Tablet] 10 mg PEG DAILY 08/24/17 Finasteride [Proscar 5 mg Tablet] 5 mg PEG DAILY 08/24/17 Insulin Lispro [Humalog Insulin (Lispro) 100 unit/mL] 0 unit SQ .SLIDING SCALE 08/24/17 Ipratropium/Albuterol Sulfate [Iprat-Albut 0.5-3(2.5) mg/3 ml] 3 ml NEB Q6 08/24 Lactulose [Constulose 10 gm/15 mL Oral Solution] 15 ml PEG BID 08/24/17 Lansoprazole [Prevacid 30 mg Odt Tablet] 30 mg PEG Q6AM 08/24/17 Metoclopramide HCl [Reglan] 2.5 mg PEG MEALSHS 08/24/17 Metoprolol Tartrate [Lopressor 25 mg Tablet] 12.5 mg PEG Q12 08/24/17 Polyethylene Glycol 3350 [Miralax Powder 17 gm/Packet] 17 gm PEG DAILY 08/24/17 Rivaroxaban [Xarelto 15 mg Tablet] 15 mg PEG DAILY 08/24/17 Tamsulosin HCl [Flomax 0.4 mg Cap.sr] 0.4 mg PEG DAILY 08/24/17 Allergies/Adverse Reactions: levofloxacin Adverse Reaction (Verified 06/17/17 05:44) Hives Review of Systems ROS unobtainable: Other - expressive aphasia Physical Exam Vital Signs: Temp Pulse Resp BP Pulse Ox 97.9 F 8 L 124/84 96 08/24/17 13:00 08/24/17 14:01 08/24/17 14:00 08/24/17 11:00 General appearance: PRESENT: no acute distress Head exam: PRESENT: normocephalic Ear exam: PRESENT: normal external ear exam Mouth exam: PRESENT: moist Teeth exam: PRESENT: poor dentation Neck exam: ABSENT: tracheal deviation Respiratory exam: PRESENT: rhonchi, symmetrical, unlabored Cardiovascular exam: PRESENT: RRR GI/Abdominal exam: PRESENT: normal bowel sounds, soft, other - PEG Rectal exam: PRESENT: deferred Extremities exam: ABSENT: pedal edema Neurological exam: PRESENT: alert, awake, aphasic, other - L sided hemiparesis Skin exam: ABSENT: rash Results Laboratory Results: 08/24/17 13:20 08/24/17 13:20 08/24/17 08/24/17 08/24/17 12:56 13:20 13:20 WBC 10.3 RBC 4.44 Hgb 12.7 L Hct 39.7 MCV 89 MCH 28.7 MCHC 32.1 RDW 15.1 H Plt Count 214 Seg Neutrophils % 80.4 H Lymphocytes % 12.5 L Monocytes % 6.0 Eosinophils % 0.9 Basophils % 0.2 Absolute Neutrophils 8.3 H Absolute Lymphocytes 1.3 Absolute Monocytes 0.6 Absolute Eosinophils 0.1 Absolute Basophils 0.0 VBG pH VBG pCO2 VBG HCO3 VBG Base Excess Sodium 152.3 H Potassium 4.9 Chloride 110 H Carbon Dioxide 27 Anion Gap 15 BUN 20 Creatinine 0.90 Est GFR ( Amer) > 60 Est GFR (Non-Af Amer) > 60 Glucose 121 H Lactic Acid Calcium 10.2 Total Bilirubin 0.4 AST 33 ALT 58 Alkaline Phosphatase 59 Total Protein 6.6 Albumin 3.6 Urine Color LUIS MANUEL Urine Appearance CLOUDY Urine pH 5.0 Ur Specific [place] 1.027 Urine Protein 100 H Urine Glucose (UA) NEGATIVE Urine Ketones NEGATIVE Urine Blood LARGE H Urine Nitrite NEGATIVE Ur Leukocyte Esterase LARGE H Urine WBC (Auto) 107 Urine RBC (Auto) >182 08/24/17 08/24/17 13:20 13:20 WBC RBC Hgb Hct MCV MCH MCHC RDW Plt Count Seg Neutrophils % Lymphocytes % Monocytes % Eosinophils % Basophils % Absolute Neutrophils Absolute Lymphocytes Absolute Monocytes Absolute Eosinophils Absolute Basophils VBG pH 7.23 L VBG pCO2 68.9 H* VBG HCO3 28.1 VBG Base Excess -0.9 Sodium Potassium Chloride Carbon Dioxide Anion Gap BUN Creatinine Est GFR ( Amer) Est GFR (Non-Af Amer) Glucose Lactic Acid 4.2 H Calcium Total Bilirubin AST ALT Alkaline Phosphatase Total Protein Albumin Urine Color Urine Appearance Urine pH Ur Specific [place] Urine Protein Urine Glucose (UA) Urine Ketones Urine Blood Urine Nitrite Ur Leukocyte Esterase Urine WBC (Auto) Urine RBC (Auto) Impressions: Chest X-Ray 08/24/17 10:34 IMPRESSION: COPD. NO ACUTE RADIOGRAPHIC FINDING IN THE CHEST. Assessment & Plan - Diagnosis (1) History of CVA with residual deficit Is this a current diagnosis for this admission?: Yes (2) Chronic indwelling Pickard catheter Is this a current diagnosis for this admission?: Yes Plan: Changed by his urologist on 08/21/17 (3) BPH (benign prostatic hyperplasia) Is this a current diagnosis for this admission?: Yes Plan: Continue outpatient medications (4) Dysphagia Is this a current diagnosis for this admission?: Yes Plan: PEG tube present, tube feeds. (5) Chronic anticoagulation Is this a current diagnosis for this admission?: Yes Plan: Continue xarelto (6) Constipation Is this a current diagnosis for this admission?: Yes Plan: Lactulose BID (7) Schizoaffective disorder Is this a current diagnosis for this admission?: Yes (8) COPD exacerbation Is this a current diagnosis for this admission?: Yes Plan: Nebs, steroids supplemental oxygen (10) Coronary artery disease Qualifiers: Coronary Disease-Associated Artery/Lesion type: unspecified vessel or lesion type [place] vs. transplanted heart: unspecified whether [place] or transplanted heart Associated angina: without angina Qualified Code(s): I25.10 - Atherosclerotic heart disease of [place] coronary artery without angina pectoris Is this a current diagnosis for this admission?: Yes Plan: Continue outpatient meds - Time Time Spent: 50 to 70 Minutes - Inpatient Certification Medical Necessity: Failure to Improve With Outpatient Therapy, Need Close Monitoring Due to Risk of Patient Decompensation, Need For Continuous Telemetry Monitoring
[2017-08-24] MEDS ORDERED: TAMSULOSIN HCL 0.4 MG CAP.SR.24H PO SCH (19:00)
[2017-08-24] MEDS ORDERED: (PENDING PHARMACY ID) (Lactulose [Constulose 10 Gm/15 Ml Oral Solution] 15 ML) PEG SCH (19:00)
[2017-08-24] MEDS ORDERED: FINASTERIDE 5 MG TABLET PO SCH (19:00)
[2017-08-24] MEDS ORDERED: TAMSULOSIN HCL 0.4 MG CAP.SR.24H PO ONE (20:00)
[2017-08-24] MEDS ORDERED: LACTULOSE SYRUP 20 GM/30 ML UDCUP PEG ONE (20:00)
[2017-08-24] MEDS ORDERED: ACETAMINOPHEN 325 MG TABLET PEG PRN (20:00)
[2017-08-24] MEDS ORDERED: FINASTERIDE 5 MG TABLET PO ONE (20:00)
[2017-08-24] MEDS: IPRATROPIUM/ALBUTEROL 0.5-2.5 MG/3 ML AMPUL NEB SCH (20:25)
[2017-08-24] MEDS ORDERED: (PENDING PHARMACY ID) (Metoclopramide Hcl [Reglan] 2.5 MG) PEG SCH (22:00)
[2017-08-24] MEDS: METHYLPREDNISOLONE INJ 40 MG/1 ML SDV IV SCH (22:25)
[2017-08-24] MEDS: METOCLOPRAMIDE HCL ORAL SOLN 10 MG/10 ML UDCUP PEG SCH (22:25)
[2017-08-24] MEDS: LACTULOSE SYRUP 20 GM/30 ML UDCUP PEG SCH (22:25)
[2017-08-24] MEDS: ATORVASTATIN CALCIUM 40 MG TABLET PEG SCH (22:26)
[2017-08-24] MEDS: METOPROLOL TARTRATE 25 MG TABLET PEG SCH (22:26)
[2017-08-24] MEDS: BUDESONIDE/FORMOTEROL 160-4.5 MCG 60 PUFF/6 GM MDI IH SCH (22:27)
[2017-08-25] MEDS: LANSOPRAZOLE 30 MG TAB.RAP.DR PEG SCH ×2 (05:41→05:53)
[2017-08-25] MEDS: METHYLPREDNISOLONE INJ 40 MG/1 ML SDV IV SCH ×3 (05:53→22:52)
[2017-08-25 07:42] LABS: ALANINE AMINOTRANSFERASE 41 U/L (21-72); ALBUMIN 3.3 g/dL (3.5-5.0); ALKALINE PHOSPHATASE 46 U/L (38-126); ANION GAP 14 (5-19); ASPARTATE AMINO TRANSFERASE 20 U/L (17-59); BILIRUBIN,DIRECT 0.2 mg/dL (0.0-0.4); BILIRUBIN,TOTAL 0.2 mg/dL (0.2-1.3); BLOOD UREA NITROGEN 21 mg/dL (7-20); CALCIUM 10.2 mg/dL (8.4-10.2); CARBON DIOXIDE 25 mmol/L (22-30); CHLORIDE 110 mmol/L (98-107); GLUCOSE 173 mg/dL (75-110); PHOSPHORUS 2.1 mg/dL (2.5-4.5); POTASSIUM 4.7 mmol/L (3.6-5.0); SODIUM 149.3 mmol/L (137-145); TOTAL PROTEIN 6.3 g/dL (6.3-8.2)
[2017-08-25] MEDS: IPRATROPIUM/ALBUTEROL 0.5-2.5 MG/3 ML AMPUL NEB SCH ×3 (08:21→20:24)
[2017-08-25] MEDS: METOCLOPRAMIDE HCL ORAL SOLN 10 MG/10 ML UDCUP PEG SCH ×4 (08:48→22:52)
[2017-08-25] MEDS: ESCITALOPRAM OXALATE 10 MG TABLET PEG SCH (10:38)
[2017-08-25] MEDS: LACTULOSE SYRUP 20 GM/30 ML UDCUP PEG SCH ×2 (10:38→22:52)
[2017-08-25] MEDS: POLYETHYLENE GLYCOL 3350 POWDER 17 GM/1 PACKET PEG SCH (10:38)
[2017-08-25] MEDS: BUDESONIDE/FORMOTEROL 160-4.5 MCG 60 PUFF/6 GM MDI IH SCH ×2 (10:38→22:54)
[2017-08-25] MEDS: RIVAROXABAN 15 MG TABLET PEG SCH (10:38)
[2017-08-25] MEDS: PHOSPHORUS #1 250 MG TABLET PEG SCH ×2 (10:39→17:09)
[2017-08-25] MEDS: METOPROLOL TARTRATE 25 MG TABLET PEG SCH ×2 (12:27→22:53)
--- NOTE | 2017-08-25 12:47 | PDOC PROGRESS REPORT ---
Subjective Progress Note for:: 08/25/17 Subjective:: Feels better. No complaints. Has expressive aphasia which is at baseline Reason For Visit: COPD,EXACERBATION Physical Exam Vital Signs: Temp Pulse Resp BP Pulse Ox 98.0 F 78 17 107/59 L 100 08/25/17 07:35 08/25/17 08:21 08/25/17 08:21 08/25/17 07:35 08/25/17 08:21 Intake & Output 08/24/17 08/25/17 08/26/17 06:59 06:59 06:59 Intake Total 200 10 Balance 200 10 Weight 69.4 kg General appearance: PRESENT: no acute distress Head exam: PRESENT: normocephalic Eye exam: ABSENT: scleral icterus Ear exam: PRESENT: normal external ear exam Mouth exam: PRESENT: moist Teeth exam: PRESENT: poor dentation Neck exam: ABSENT: tracheal deviation Respiratory exam: PRESENT: symmetrical, unlabored Cardiovascular exam: PRESENT: RRR GI/Abdominal exam: PRESENT: normal bowel sounds, soft, other - PEG Rectal exam: PRESENT: deferred Gentrourinary exam: PRESENT: indwelling catheter Extremities exam: ABSENT: pedal edema Neurological exam: PRESENT: alert, awake, aphasic Psychiatric exam: PRESENT: appropriate affect Skin exam: ABSENT: rash Results Laboratory Results: 08/25/17 07:01 08/24/17 08/25/17 08/25/17 17:33 07:01 07:01 Sodium 149.3 H Potassium 4.7 Chloride 110 H Carbon Dioxide 25 Anion Gap 14 BUN 21 H Creatinine 0.84 Est GFR ( Amer) > 60 Est GFR (Non-Af Amer) > 60 Glucose 173 H Lactic Acid 1.3 Calcium 10.2 Phosphorus 2.1 L Magnesium 2.0 Total Bilirubin 0.2 AST 20 ALT 41 Alkaline Phosphatase 46 Total Protein 6.3 Albumin 3.3 L TSH 0.69 08/25/17 07:01 NT-Pro-B Natriuret Pep 796 Impressions: Chest X-Ray 08/24/17 10:34 IMPRESSION: COPD. NO ACUTE RADIOGRAPHIC FINDING IN THE CHEST. Assessment & Plan - Diagnosis (1) History of CVA with residual deficit Is this a current diagnosis for this admission?: Yes Plan: Continue outpatient meds, fall precautions (2) Chronic indwelling Pickard catheter Is this a current diagnosis for this admission?: Yes Plan: Changed by his urologist on 08/21/17 (3) BPH (benign prostatic hyperplasia) Is this a current diagnosis for this admission?: Yes Plan: Continue outpatient medications (4) Dysphagia Is this a current diagnosis for this admission?: Yes Plan: PEG tube present, tube feeds. (5) Chronic anticoagulation Is this a current diagnosis for this admission?: Yes Plan: Continue xarelto (6) Constipation Is this a current diagnosis for this admission?: Yes Plan: Lactulose BID (7) Schizoaffective disorder Qualifiers: Schizoaffective disorder type: unspecified Qualified Code(s): F25.9 - Schizoaffective disorder, unspecified Is this a current diagnosis for this admission?: Yes Plan: Continue outpatient meds (8) COPD exacerbation Is this a current diagnosis for this admission?: Yes Plan: Nebs, steroids supplemental oxygen (9) Expressive aphasia Is this a current diagnosis for this admission?: Yes Plan: Stable (10) Coronary artery disease Qualifiers: Coronary Disease-Associated Artery/Lesion type: unspecified vessel or lesion type [place] vs. transplanted heart: unspecified whether [place] or transplanted heart Associated angina: without angina Qualified Code(s): I25.10 - Atherosclerotic heart disease of [place] coronary artery without angina pectoris Is this a current diagnosis for this admission?: Yes Plan: Continue outpatient meds - Time Time Spent with patient: 25-34 minutes
[2017-08-25] MEDS: ATORVASTATIN CALCIUM 40 MG TABLET PEG SCH (22:53)
[2017-08-26] MEDS: METHYLPREDNISOLONE INJ 40 MG/1 ML SDV IV SCH ×2 (05:32→17:28)
[2017-08-26] MEDS: LANSOPRAZOLE 30 MG TAB.RAP.DR PEG SCH ×3 (05:34→07:32)
[2017-08-26] MEDS ORDERED: PANTOPRAZOLE SODIUM 40 MG VIAL IV PRN (06:25)
[2017-08-26] MEDS ORDERED: PANTOPRAZOLE SODIUM 80 MG in NORMAL SALINE 100 ML IV ONE (06:30)
[2017-08-26] MEDS: IPRATROPIUM/ALBUTEROL 0.5-2.5 MG/3 ML AMPUL NEB SCH ×3 (07:48→19:42)
[2017-08-26] MEDS: METOCLOPRAMIDE HCL ORAL SOLN 10 MG/10 ML UDCUP PEG SCH ×4 (08:20→21:20)
[2017-08-26] MEDS ORDERED: VANCOMYCIN HCL 0 MG in DEXTROSE 5%-WATER 250 ML IV NR (08:30)
--- NOTE | 2017-08-26 09:01 | RADIOLOGY REPORT (SQ) ---
EXAM DESCRIPTION: ACUTE ABDOMEN SERIES COMPLETED DATE/TIME: 08/26/2017 8:50 am REASON FOR STUDY: abdominal pain distension COMPARISON: 06/30/2017 NUMBER OF VIEWS: Three views. TECHNIQUE: Frontal chest, supine abdomen and upright/decubitus abdomen radiographic images acquired. LIMITATIONS: None. FINDINGS: CHEST: Atelectasis at the right base. FREE AIR: None. No abnormal gas collections. BOWEL GAS PATTERN: There is gaseous distention of the colon. No fluid levels. Small bowel air. No definite rectal air. Bowel. CALCIFICATIONS: No suspicious calcifications. HARDWARE: None in the abdomen. SOFT TISSUES: No gross mass or suggestion of organomegaly. BONES: No acute fracture. No worrisome bone lesions. OTHER: No other significant finding. IMPRESSION: Gaseous distention of the colon small bowel. Low colonic obstruction in the differentia l. TECHNICAL DOCUMENTATION: JOB ID: [id number] [employer]- All Rights Reserved Reading location - IP/workstation name: [email or web address]
[2017-08-26 09:41] LABS: ANION GAP 13 (5-19); BLOOD UREA NITROGEN 23 mg/dL (7-20); CALCIUM 10.4 mg/dL (8.4-10.2); CARBON DIOXIDE 23 mmol/L (22-30); CHLORIDE 111 mmol/L (98-107); GLUCOSE 142 mg/dL (75-110); PHOSPHORUS 3.4 mg/dL (2.5-4.5); POTASSIUM 3.9 mmol/L (3.6-5.0); SODIUM 147.2 mmol/L (137-145)
[2017-08-26] MEDS: POLYETHYLENE GLYCOL 3350 POWDER 17 GM/1 PACKET PEG SCH (10:28)
[2017-08-26] MEDS: ESCITALOPRAM OXALATE 10 MG TABLET PEG SCH (10:28)
[2017-08-26] MEDS: RIVAROXABAN 15 MG TABLET PEG SCH (10:28)
[2017-08-26] MEDS: METOPROLOL TARTRATE 25 MG TABLET PEG SCH ×2 (10:28→21:20)
[2017-08-26] MEDS: PHOSPHORUS #1 250 MG TABLET PEG SCH ×2 (10:28→17:28)
[2017-08-26] MEDS: LACTULOSE SYRUP 20 GM/30 ML UDCUP PEG SCH ×2 (10:28→21:20)
[2017-08-26] MEDS: VANCOMYCIN HCL 750 MG in DEXTROSE 5%-WATER 250 ML IV SCH ×2 (10:40→21:20)
[2017-08-26] MEDS: BUDESONIDE/FORMOTEROL 160-4.5 MCG 60 PUFF/6 GM MDI IH SCH ×2 (10:41→21:20)
[2017-08-26] MEDS ORDERED: METHYLPREDNISOLONE INJ 40 MG/1 ML SDV IV SCH (14:00)
--- NOTE | 2017-08-26 14:19 | PDOC CONSULTATION ---
Consultation Consult Date: 08/26/17 Consult reason:: Blood at PEG tube, abdominal distention. History of Present Illness Admission Date/PCP: 08/24/17 16:46 FIDEL HANDY DO History of Present Illness: DALY PORTILLO SR is a 72 year old male admitted with respiratory difficulties and COPD exacerbation. Last night, the nurses noted a little bit of blood with administration of tube feedings. The patient's tube feedings were held. This morning his medical physician noted that his abdomen was distended, and x-rays were performed. I was consulted to evaluate the bleeding at PEG site and nominal distention. The patient is currently nonverbal due to a CVA in the past , however he does nod yes and no to questions. A complete review of systems is difficult to obtain. His sister is present to relay much of his medical history. He does struggle with chronic constipation and takes lactulose at the nursing facility. His last bowel movement was yesterday. The patient denies any abdominal pain. He also denies chest pain or shortness of breath. Past Medical History Cardiac Medical History: Reports: Congestive Heart Failure, Myocardial Infarction, Hypertension Pulmonary Medical History: Reports: Chronic Obstructive Pulmonary Disease (COPD) Neurological Medical History: Reports: Ischemic CVA, Other - Nonverbal due to CVA. Denies: Seizures Endocrine Medical History: Reports: Diabetes Mellitus Type 2 Psychiatric Medical History: Reports: Depression, Schizoaffective Disorder Past Surgical History Past Surgical History: Reports: Other - ? previous TURP Social History Lives with: Correction Smoking Status: Former Smoker Frequency of Alcohol Use: None Hx Recreational Drug Use: No Drugs: None Hx Prescription Drug Abuse: No - Advance Directive Resuscitation Status: Do Not Resuscitate Family History Family History: CAD, COPD, Hypertension Parental Family History Reviewed: Yes Children Family History Reviewed: Yes Sibling(s) Family History Reviewed.: Yes Medication/Allergy Home Medications: Acetaminophen [Tylenol 325 mg Tablet] 650 mg PEG Q6HP PRN 08/24/17 Aspirin [Aspirin 325 mg Tablet] 325 mg PEG DAILY 08/24/17 Atorvastatin Calcium [Lipitor 40 mg Tablet] 40 mg PEG QHS 08/24/17 Budesonide/Formoterol Fumarate [Symbicort 160-4.5 Mcg Inhaler] 2 puff PO Q12 02/01 Escitalopram Oxalate [Lexapro 10 mg Tablet] 10 mg PEG DAILY 08/24/17 Finasteride [Proscar 5 mg Tablet] 5 mg PEG DAILY 08/24/17 Insulin Lispro [Humalog Insulin (Lispro) 100 unit/mL] 0 unit SQ .SLIDING SCALE 08/24/17 Ipratropium/Albuterol Sulfate [Iprat-Albut 0.5-3(2.5) mg/3 ml] 3 ml NEB Q6 08/24 Lactulose [Constulose 10 gm/15 mL Oral Solution] 15 ml PEG BID 08/24/17 Lansoprazole [Prevacid 30 mg Odt Tablet] 30 mg PEG Q6AM 08/24/17 Metoclopramide HCl [Reglan] 2.5 mg PEG MEALSHS 08/24/17 Metoprolol Tartrate [Lopressor 25 mg Tablet] 12.5 mg PEG Q12 08/24/17 Polyethylene Glycol 3350 [Miralax Powder 17 gm/Packet] 17 gm PEG DAILY 08/24/17 Rivaroxaban [Xarelto 15 mg Tablet] 15 mg PEG DAILY 08/24/17 Tamsulosin HCl [Flomax 0.4 mg Cap.sr] 0.4 mg PEG DAILY 08/24/17 Allergies/Adverse Reactions: levofloxacin Adverse Reaction (Verified 06/17/17 05:44) Hives Review of Systems ROS unobtainable: Due to mental status, Other - See HPI for obtainable review of systems. Physical Exam Vital Signs: Temp Pulse Resp BP Pulse Ox 98.0 F 72 16 141/64 H 96 08/26/17 12:47 08/26/17 13:53 08/26/17 13:53 08/26/17 12:47 08/26/17 13:53 Intake & Output 08/25/17 08/26/17 08/27/17 06:59 06:59 06:59 Intake Total 200 10 100 Output Total 720 Balance 200 -710 100 Weight 69.4 kg 72.4 kg General appearance: PRESENT: no acute distress Head exam: PRESENT: atraumatic, normocephalic Eye exam: PRESENT: EOMI, PERRLA. ABSENT: conjunctival injection, scleral icterus Mouth exam: PRESENT: neck supple Neck exam: ABSENT: lymphadenopathy, meningismus, tenderness, thyromegaly, tracheal deviation Respiratory exam: PRESENT: clear to auscultation eric, unlabored. ABSENT: accessory muscle use, chest wall tenderness, stridor, tachypnea Cardiovascular exam: PRESENT: RRR Pulses: PRESENT: normal radial pulses GI/Abdominal exam: PRESENT: distended, normal bowel sounds, soft. ABSENT: tenderness Rectal exam: PRESENT: deferred Extremities exam: ABSENT: tenderness Neurological exam: PRESENT: alert, awake, other - Nonverbal. Nods appropriately to yes or no questions. Psychiatric exam: ABSENT: agitated, anxious, depressed Skin exam: ABSENT: cyanosis, erythema, jaundice Results Laboratory Results: 08/26/17 09:16 08/26/17 08/26/17 06:52 09:16 Sodium Cancelled 147.2 H Potassium Cancelled 3.9 Chloride Cancelled 111 H Carbon Dioxide Cancelled 23 Anion Gap Cancelled 13 BUN Cancelled 23 H Creatinine Cancelled 0.82 Est GFR ( Amer) Cancelled > 60 Est GFR (Non-Af Amer) Cancelled > 60 Glucose Cancelled 142 H Calcium Cancelled 10.4 H Phosphorus Cancelled 3.4 Magnesium Cancelled 2.0 08/25/17 07:01 NT-Pro-B Natriuret Pep 796 Impressions: Chest X-Ray 08/24/17 10:34 IMPRESSION: COPD. NO ACUTE RADIOGRAPHIC FINDING IN THE CHEST. Acute Abdomen Series 08/26/17 00:00 IMPRESSION: Gaseous distention of the colon small bowel. Low colonic obstruction in the differential. Assessment & Plan - Diagnosis (1) Abdominal distention Is this a current diagnosis for this admission?: Yes (2) Constipation Qualifiers: Constipation type: chronic idiopathic constipation Qualified Code(s): K59.04 - Chronic idiopathic constipation Is this a current diagnosis for this admission?: Yes - Plan Summary Plan Summary: This is a 72-year-old male with a history of CVA. He has a PEG in place. There was reportedly some bleeding at the PEG site. There is no bleeding currently. His hemoglobin appears stable from previous. I do not see any evidence of acute hemorrhage. The patient does have significant distention on exam today. I have reviewed his x-rays. He has dilated loops of small and large bowel. This may be related to his chronic constipation. His medical physician has ordered an enema. I have also instructed the nurses to give him his lactulose through his PEG. If his distention resolves with these measures, no further workup is indicated. If his distention does not resolve, a barium enema may provide insight into the etiology. I will continue to follow the patient very closely with you.
--- NOTE | 2017-08-26 15:11 | PDOC PROGRESS REPORT ---
Subjective Progress Note for:: 08/26/17 Subjective:: He developed abdominal distension and increased residuals, with some blood tinged fluid from PEG tube. He appears to be severely constipated. Surgical evaluation appreciated. Plan for enema. No peripheral IV access and no PICC team availability over the weekend. central line placement requested. Reason For Visit: COPD,EXACERBATION Physical Exam Vital Signs: Temp Pulse Resp BP Pulse Ox 98.0 F 72 16 141/64 H 96 08/26/17 12:47 08/26/17 13:53 08/26/17 13:53 08/26/17 12:47 08/26/17 13:53 Intake & Output 08/25/17 08/26/17 08/27/17 06:59 06:59 06:59 Intake Total 200 10 100 Output Total 720 Balance 200 -710 100 Weight 69.4 kg 72.4 kg General appearance: PRESENT: no acute distress Head exam: PRESENT: normocephalic Ear exam: PRESENT: normal external ear exam Mouth exam: PRESENT: moist Neck exam: ABSENT: tracheal deviation Respiratory exam: PRESENT: rhonchi, symmetrical, unlabored Cardiovascular exam: PRESENT: RRR GI/Abdominal exam: PRESENT: diminished bowel sounds, distended, soft Rectal exam: PRESENT: deferred Gentrourinary exam: PRESENT: indwelling catheter Extremities exam: ABSENT: pedal edema Musculoskeletal exam: PRESENT: normal inspection Neurological exam: PRESENT: alert, awake, aphasic Psychiatric exam: PRESENT: appropriate affect Skin exam: ABSENT: skin tears Results Laboratory Results: 08/26/17 09:16 08/26/17 08/26/17 06:52 09:16 Sodium Cancelled 147.2 H Potassium Cancelled 3.9 Chloride Cancelled 111 H Carbon Dioxide Cancelled 23 Anion Gap Cancelled 13 BUN Cancelled 23 H Creatinine Cancelled 0.82 Est GFR ( Amer) Cancelled > 60 Est GFR (Non-Af Amer) Cancelled > 60 Glucose Cancelled 142 H Calcium Cancelled 10.4 H Phosphorus Cancelled 3.4 Magnesium Cancelled 2.0 08/25/17 07:01 NT-Pro-B Natriuret Pep 796 Impressions: Chest X-Ray 08/24/17 10:34 IMPRESSION: COPD. NO ACUTE RADIOGRAPHIC FINDING IN THE CHEST. Acute Abdomen Series 08/26/17 00:00 IMPRESSION: Gaseous distention of the colon small bowel. Low colonic obstruction in the differential. Assessment & Plan - Diagnosis (1) History of CVA with residual deficit Is this a current diagnosis for this admission?: Yes Plan: Stable, at baseline Continue outpatient meds, fall precautions (2) Chronic indwelling Pickard catheter Is this a current diagnosis for this admission?: Yes Plan: Changed by his urologist on 08/21/17. Continue to maintain (3) BPH (benign prostatic hyperplasia) Is this a current diagnosis for this admission?: Yes Plan: Continue outpatient medications (4) Dysphagia Is this a current diagnosis for this admission?: Yes Plan: PEG tube present, tube feeds on hold, see below. (5) Chronic anticoagulation Is this a current diagnosis for this admission?: Yes Plan: For recurrent CVA, hold xarelto given fresh blood from PEG and abdominal distension. (6) Constipation Qualifiers: Constipation type: chronic idiopathic constipation Qualified Code(s): K59.04 - Chronic idiopathic constipation Is this a current diagnosis for this admission?: Yes Plan: See below (7) Schizoaffective disorder Qualifiers: Schizoaffective disorder type: unspecified Qualified Code(s): F25.9 - Schizoaffective disorder, unspecified Is this a current diagnosis for this admission?: Yes Plan: resume outpatient meds once able. (8) COPD exacerbation Is this a current diagnosis for this admission?: Yes Plan: Nebs, taper steroids supplemental oxygen (9) Expressive aphasia Is this a current diagnosis for this admission?: Yes Plan: Stable, at baseline (10) Coronary artery disease Qualifiers: Coronary Disease-Associated Artery/Lesion type: unspecified vessel or lesion type [place] vs. transplanted heart: unspecified whether [place] or transplanted heart Associated angina: without angina Qualified Code(s): I25.10 - Atherosclerotic heart disease of [place] coronary artery without angina pectoris Is this a current diagnosis for this admission?: Yes Plan: Continue outpatient meds (11) Ileus Is this a current diagnosis for this admission?: Yes Plan: Likely secondary to constipation. Plan for enema today. If no resolution then plan for barium enema. Surgery input appreciated. Continue to hold tube feeds - Time Time Spent with patient: 35 or more minutes
[2017-08-26] MEDS: ATORVASTATIN CALCIUM 40 MG TABLET PEG SCH (21:20)
--- NOTE | 2017-08-26 23:52 | Operative Report ---
Nonrecallable Operative Report DATE OF SURGERY: 08/26/17 PREOPERATIVE DIAGNOSIS: 1. Phlebosclerosis. 2. Complicated urinary tract infection POSTOPERATIVE DIAGNOSIS: Same as above OPERATION: 1. Ultrasound-guided central venous puncture. 2. Right internal jugular vein central line placement. SURGEON: PEÑA WATKINS ANESTHESIA: Local TISSUE REMOVED OR ALTERED: None COMPLICATIONS: None apparent ESTIMATED BLOOD LOSS: Minimal PROCEDURE: Drains/implants: Right internal jugular vein central line at 14 cm. After informed consent was obtained from the patient's MPOA, he was laid in the Trendelenburg position. The area of the right neck and chest were prepped and draped in a normal sterile fashion. An ultrasound was used to identify the right internal jugular vein. It was compressible with normal flow. The supplied needle was used to access the right internal jugular vein under direct ultrasonic guidance. Dark venous, nonpulsatile blood was returned in the syringe. The wire was then inserted into the vein easily. The wire was confirmed to be within the lumen of the vein using the ultrasound device. The catheter was then slid over the wire using a modified Seldinger technique. The catheter was sutured to the skin. The catheter was aspirated and flushed 3 without difficulty. A dressing was fashioned, and the procedure was concluded. All sponge, instrument, and needle counts were correct 2. Condition: Stable.
--- NOTE | 2017-08-27 00:49 | RADIOLOGY REPORT (SQ) ---
EXAM DESCRIPTION: XR CHEST 1 VIEW CLINICAL HISTORY: 72 years Male, verification of central line placement COMPARISON: 3.3.18. NUMBER OF VIEWS/TECHNIQUE: 1/AP FINDINGS: Adequate lung volume, small right lower lobar atelectasis or scar, normal cardiac silhouette, right jugular central line tip at the SVC, and intact bony thorax. IMPRESSION: No acute cardiopulmonary findings.
[2017-08-27] MEDS: METHYLPREDNISOLONE INJ 40 MG/1 ML SDV IV SCH ×3 (02:26→17:26)
[2017-08-27 05:09] LABS: ABSOLUTE LYMPHOCYTES (AUTO) 0.9 10^3/uL (0.5-4.7); ABSOLUTE MONOCYTES (AUTO) 0.5 10^3/uL (0.1-1.4); ABSOLUTE NEUT (AUTO) 8.3 10^3/uL (1.7-8.2); HEMATOCRIT 31.8 % (37.9-51.0); LYMPHOCYTES % (AUTO) 9.4 % (13-45); MEAN CORPUSCULAR HEMOGLOBIN 28.9 pg (27.0-33.4); MEAN CORPUSCULAR HGB CONC 32.6 g/dL (32.0-36.0); MEAN CORPUSCULAR VOLUME 89 fl (80-97); MONOCYTES % (AUTO) 5.4 % (3-13); PLATELET COUNT 214 10^3/uL (150-450); RED BLOOD COUNT 3.59 10^6/uL (4.35-5.55); RED CELL DISTRIBUTION WIDTH 15.1 % (11.5-14.0); SEGMENTED NEUTROPHILS % (AUTO) 85.2 % (42-78); TOTAL CELLS COUNTED % (AUTO) 100 %; WHITE BLOOD COUNT 9.8 10^3/uL (4.0-10.5)
[2017-08-27 05:12] LABS: HEMOGLOBIN 10.4 g/dL (13.5-17.0)
[2017-08-27 05:23] LABS: ANION GAP 9 (5-19); BLOOD UREA NITROGEN 23 mg/dL (7-20); CALCIUM 9.9 mg/dL (8.4-10.2); CARBON DIOXIDE 31 mmol/L (22-30); CHLORIDE 109 mmol/L (98-107); GLUCOSE 104 mg/dL (75-110); PHOSPHORUS 3.2 mg/dL (2.5-4.5); POTASSIUM 3.6 mmol/L (3.6-5.0); SODIUM 148.8 mmol/L (137-145)
[2017-08-27] MEDS: METOCLOPRAMIDE HCL ORAL SOLN 10 MG/10 ML UDCUP PEG SCH ×4 (07:52→21:55)
[2017-08-27] MEDS: IPRATROPIUM/ALBUTEROL 0.5-2.5 MG/3 ML AMPUL NEB SCH ×3 (08:10→19:50)
--- NOTE | 2017-08-27 08:32 | RADIOLOGY REPORT (SQ) ---
EXAM DESCRIPTION: KUB/ABDOMEN (SINGLE VIEW) COMPLETED DATE/TIME: 08/27/2017 8:18 am REASON FOR STUDY: distention COMPARISON: 08/26/2017 NUMBER OF VIEWS: One view. TECHNIQUE: Supine radiographic image of the abdomen acquired. LIMITATIONS: None. FINDINGS: BOWEL GAS PATTERN: Normal bowel gas pattern. No dilated loops. CALCIFICATIONS: No suspicious calcifications. SOFT TISSUES: No gross mass or suggestion of organomegaly. HARDWARE: Percutaneous gastrostomy tube. BONES: No acute fracture. No worrisome bone lesions. OTHER: No other significant finding. IMPRESSION: NO RADIOGRAPHIC EVIDENCE FOR ACUTE ABDOMINAL DISEASE. INTERVAL IMPROVEMENT OF PREVIOUS IDENTIFIED BOWEL DISTENTION. TECHNICAL DOCUMENTATION: JOB ID: [id number] [employer]- All Rights Reserved Reading location - IP/workstation name: [email or web address]
--- NOTE | 2017-08-27 08:51 | PDOC PROGRESS REPORT ---
Subjective Progress Note for:: 08/27/17 Subjective:: This is a 72-year-old male with chronic constipation. He was found to have abdominal distention yesterday. Today his abdomen is much less distended. Patient denies any abdominal pain or discomfort. Patient is nonverbal, but he does respond to yes or no questions appropriately. She denies any shortness of breath or chest pain. Reason For Visit: COPD,EXACERBATION Physical Exam Vital Signs: Temp Pulse Resp BP Pulse Ox 97.5 F 73 16 157/67 H 96 08/27/17 07:12 08/27/17 08:10 08/27/17 08:10 08/27/17 07:12 08/27/17 08:10 Intake & Output 08/26/17 08/27/17 08/28/17 06:59 06:59 06:59 Intake Total 10 100 Output Total 720 600 Balance -710 -500 Weight 72.4 kg 71.6 kg General appearance: PRESENT: no acute distress Head exam: PRESENT: atraumatic, normocephalic Eye exam: PRESENT: EOMI, PERRLA. ABSENT: conjunctival injection, scleral icterus Mouth exam: PRESENT: moist, neck supple Neck exam: ABSENT: lymphadenopathy, meningismus, tenderness, thyromegaly, tracheal deviation Respiratory exam: PRESENT: clear to auscultation eric, unlabored. ABSENT: accessory muscle use, tachypnea Cardiovascular exam: PRESENT: RRR Pulses: PRESENT: normal radial pulses Vascular exam: PRESENT: normal capillary refill. ABSENT: pallor GI/Abdominal exam: PRESENT: soft. ABSENT: distended, rebound, tenderness Rectal exam: PRESENT: deferred Neurological exam: PRESENT: alert, awake Psychiatric exam: ABSENT: agitated, anxious Skin exam: ABSENT: cyanosis, erythema, jaundice Results Laboratory Results: 08/27/17 04:28 08/27/17 04:28 08/26/17 08/27/17 08/27/17 09:16 04:28 04:28 WBC 9.8 RBC 3.59 L Hgb 10.4 L D Hct 31.8 L MCV 89 MCH 28.9 MCHC 32.6 RDW 15.1 H Plt Count 214 Seg Neutrophils % 85.2 H Lymphocytes % 9.4 L Monocytes % 5.4 Eosinophils % 0.0 Basophils % 0.0 Absolute Neutrophils 8.3 H Absolute Lymphocytes 0.9 Absolute Monocytes 0.5 Absolute Eosinophils 0.0 Absolute Basophils 0.0 Sodium 147.2 H 148.8 H Potassium 3.9 3.6 Chloride 111 H 109 H Carbon Dioxide 23 31 H Anion Gap 13 9 BUN 23 H 23 H Creatinine 0.82 0.82 Est GFR ( Amer) > 60 > 60 Est GFR (Non-Af Amer) > 60 > 60 Glucose 142 H 104 Calcium 10.4 H 9.9 Phosphorus 3.4 3.2 Magnesium 2.0 2.0 08/25/17 07:01 NT-Pro-B Natriuret Pep 796 Impressions: Acute Abdomen Series 08/26/17 00:00 IMPRESSION: Gaseous distention of the colon small bowel. Low colonic obstruction in the differential. Chest X-Ray 08/26/17 00:00 IMPRESSION: No acute cardiopulmonary findings. KUB X-Ray 08/27/17 06:00 IMPRESSION: NO RADIOGRAPHIC EVIDENCE FOR ACUTE ABDOMINAL DISEASE. INTERVAL IMPROVEMENT OF PREVIOUS IDENTIFIED BOWEL DISTENTION. Assessment & Plan - Diagnosis (1) Abdominal distention Is this a current diagnosis for this admission?: Yes (2) Constipation Qualifiers: Constipation type: chronic idiopathic constipation Qualified Code(s): K59.04 - Chronic idiopathic constipation Is this a current diagnosis for this admission?: Yes - Plan Summary Plan Summary: This is a 72-year-old male status post CVA who has difficulty with chronic constipation. Yesterday, his abdomen was distended. She had an enema with good results. The patient's KUB today is much improved, and his abdomen is less distended. You may resume his tube feedings up to previous goals. Check residuals every 4 hours. I will see the patient again on an as-needed basis. Please renotify with any questions or concerns.
[2017-08-27] MEDS: BUDESONIDE/FORMOTEROL 160-4.5 MCG 60 PUFF/6 GM MDI IH SCH ×2 (10:07→22:00)
[2017-08-27] MEDS: ESCITALOPRAM OXALATE 10 MG TABLET PEG SCH (10:08)
[2017-08-27] MEDS: METOPROLOL TARTRATE 25 MG TABLET PEG SCH ×2 (10:08→21:58)
[2017-08-27] MEDS: POLYETHYLENE GLYCOL 3350 POWDER 17 GM/1 PACKET PEG SCH (10:08)
[2017-08-27] MEDS: LACTULOSE SYRUP 20 GM/30 ML UDCUP PEG SCH ×2 (10:10→21:54)
[2017-08-27] MEDS: PANTOPRAZOLE SODIUM 40 MG VIAL IV SCH ×2 (10:10→21:56)
[2017-08-27] MEDS: VANCOMYCIN HCL 750 MG in DEXTROSE 5%-WATER 250 ML IV SCH ×2 (10:11→21:57)
--- NOTE | 2017-08-27 12:24 | PDOC PROGRESS REPORT ---
Subjective Progress Note for:: 08/27/17 Subjective:: He developed abdominal distension and increased residuals, with some blood tinged fluid from PEG tube. He appears to be severely constipated. Surgical evaluation appreciated. Symptoms resolved with enema. Abd xray today shows marked improvement. Start tube feeds at 15cc/hr- increase rate slowly, check for residuals. Monitor hemoglobin. Continue to hold anticoagulation for today. Reason For Visit: COPD,EXACERBATION Physical Exam Vital Signs: Temp Pulse Resp BP Pulse Ox 97.5 F 73 16 157/67 H 96 08/27/17 07:12 08/27/17 08:10 08/27/17 08:10 08/27/17 07:12 08/27/17 08:10 Intake & Output 08/26/17 08/27/17 08/28/17 06:59 06:59 06:59 Intake Total 10 100 Output Total 720 600 Balance -710 -500 Weight 72.4 kg 71.6 kg General appearance: PRESENT: no acute distress Head exam: PRESENT: normocephalic Eye exam: PRESENT: PERRLA Mouth exam: PRESENT: moist Respiratory exam: PRESENT: symmetrical, unlabored Cardiovascular exam: PRESENT: RRR GI/Abdominal exam: PRESENT: normal bowel sounds, soft, other - PEG tube present. ABSENT: tenderness Gentrourinary exam: PRESENT: indwelling catheter Musculoskeletal exam: PRESENT: normal inspection Neurological exam: PRESENT: alert, awake, aphasic Skin exam: ABSENT: rash Results Laboratory Results: 08/27/17 04:28 08/27/17 04:28 08/27/17 08/27/17 04:28 04:28 WBC 9.8 RBC 3.59 L Hgb 10.4 L D Hct 31.8 L MCV 89 MCH 28.9 MCHC 32.6 RDW 15.1 H Plt Count 214 Seg Neutrophils % 85.2 H Lymphocytes % 9.4 L Monocytes % 5.4 Eosinophils % 0.0 Basophils % 0.0 Absolute Neutrophils 8.3 H Absolute Lymphocytes 0.9 Absolute Monocytes 0.5 Absolute Eosinophils 0.0 Absolute Basophils 0.0 Sodium 148.8 H Potassium 3.6 Chloride 109 H Carbon Dioxide 31 H Anion Gap 9 BUN 23 H Creatinine 0.82 Est GFR ( Amer) > 60 Est GFR (Non-Af Amer) > 60 Glucose 104 Calcium 9.9 Phosphorus 3.2 Magnesium 2.0 08/25/17 07:01 NT-Pro-B Natriuret Pep 796 Impressions: Acute Abdomen Series 08/26/17 00:00 IMPRESSION: Gaseous distention of the colon small bowel. Low colonic obstruction in the differential. Chest X-Ray 08/26/17 00:00 IMPRESSION: No acute cardiopulmonary findings. KUB X-Ray 08/27/17 06:00 IMPRESSION: NO RADIOGRAPHIC EVIDENCE FOR ACUTE ABDOMINAL DISEASE. INTERVAL IMPROVEMENT OF PREVIOUS IDENTIFIED BOWEL DISTENTION. Assessment & Plan - Diagnosis (1) History of CVA with residual deficit Is this a current diagnosis for this admission?: Yes Plan: Stable, at baseline Continue outpatient meds, fall precautions (2) Chronic indwelling [place] catheter Is this a current diagnosis for this admission?: Yes Plan: Changed by his urologist on 08/21/17. Continue to maintain (3) BPH (benign prostatic hyperplasia) Is this a current diagnosis for this admission?: Yes Plan: Continue outpatient medications (4) Dysphagia Is this a current diagnosis for this admission?: Yes Plan: PEG tube present, tube feeds as tolerated (5) Chronic anticoagulation Is this a current diagnosis for this admission?: Yes Plan: For recurrent CVA, hold xarelto given fresh blood from PEG and abdominal distension. (6) Constipation Qualifiers: Constipation type: chronic idiopathic constipation Qualified Code(s): K59.04 - Chronic idiopathic constipation Is this a current diagnosis for this admission?: Yes (7) Schizoaffective disorder Qualifiers: Schizoaffective disorder type: unspecified Qualified Code(s): F25.9 - Schizoaffective disorder, unspecified Is this a current diagnosis for this admission?: Yes Plan: resume outpatient meds once able. (8) COPD exacerbation Is this a current diagnosis for this admission?: Yes Plan: Nebs, taper steroids supplemental oxygen (9) Expressive aphasia Is this a current diagnosis for this admission?: Yes Plan: Stable, at baseline (10) Coronary artery disease Qualifiers: Coronary Disease-Associated Artery/Lesion type: unspecified vessel or lesion type [place] vs. transplanted heart: unspecified whether [place] or transplanted heart Associated angina: without angina Qualified Code(s): I25.10 - Atherosclerotic heart disease of [place] coronary artery without angina pectoris Is this a current diagnosis for this admission?: Yes Plan: Continue outpatient meds (11) Ileus Is this a current diagnosis for this admission?: Yes Plan: Resolved. resume tube feeds - Time Time Spent with patient: 35 or more minutes
[2017-08-27] MEDS: ATORVASTATIN CALCIUM 40 MG TABLET PEG SCH (21:55)
[2017-08-28] MEDS: METHYLPREDNISOLONE INJ 40 MG/1 ML SDV IV SCH (01:19)
[2017-08-28] MEDS: IPRATROPIUM/ALBUTEROL 0.5-2.5 MG/3 ML AMPUL NEB SCH ×3 (07:39→19:49)
[2017-08-28] MEDS ORDERED: ONDANSETRON HCL INJ/PF 4 MG/2 ML SDV IV PRN (08:00)
[2017-08-28] MEDS: METOCLOPRAMIDE HCL ORAL SOLN 10 MG/10 ML UDCUP PEG SCH ×4 (09:33→21:46)
[2017-08-28] MEDS: POLYETHYLENE GLYCOL 3350 POWDER 17 GM/1 PACKET PEG SCH (09:34)
[2017-08-28] MEDS: LACTULOSE SYRUP 20 GM/30 ML UDCUP PEG SCH ×2 (09:35→21:46)
[2017-08-28] MEDS: ESCITALOPRAM OXALATE 10 MG TABLET PEG SCH (09:40)
[2017-08-28] MEDS: PANTOPRAZOLE SODIUM 40 MG VIAL IV SCH ×2 (09:40→21:46)
[2017-08-28] MEDS: BUDESONIDE/FORMOTEROL 160-4.5 MCG 60 PUFF/6 GM MDI IH SCH ×2 (09:40→21:47)
[2017-08-28] MEDS: PREDNISONE 20 MG TABLET PEG SCH (09:40)
[2017-08-28] MEDS: METOPROLOL TARTRATE 25 MG TABLET PEG SCH ×2 (09:41→21:45)
[2017-08-28] MEDS: VANCOMYCIN HCL 750 MG in DEXTROSE 5%-WATER 250 ML IV SCH (09:43)
[2017-08-28 10:23] LABS: HEMATOCRIT 34.9 % (37.9-51.0); HEMOGLOBIN 11.3 g/dL (13.5-17.0); MEAN CORPUSCULAR HEMOGLOBIN 28.4 pg (27.0-33.4); MEAN CORPUSCULAR HGB CONC 32.5 g/dL (32.0-36.0); MEAN CORPUSCULAR VOLUME 88 fl (80-97); PLATELET COUNT 231 10^3/uL (150-450); RED BLOOD COUNT 3.99 10^6/uL (4.35-5.55); RED CELL DISTRIBUTION WIDTH 14.9 % (11.5-14.0); WHITE BLOOD COUNT 9.8 10^3/uL (4.0-10.5)
[2017-08-28 10:46] LABS: ANION GAP 9 (5-19); BLOOD UREA NITROGEN 21 mg/dL (7-20); CALCIUM 10.2 mg/dL (8.4-10.2); CARBON DIOXIDE 30 mmol/L (22-30); CHLORIDE 104 mmol/L (98-107); GLUCOSE 142 mg/dL (75-110); POTASSIUM 3.1 mmol/L (3.6-5.0); SODIUM 143.4 mmol/L (137-145)
[2017-08-28] MEDS ORDERED: POTASSIUM CHLORIDE 20 MEQ/15 ML UDCUP PEG ONE (11:11)
--- NOTE | 2017-08-28 11:16 | PDOC PROGRESS REPORT ---
Subjective Progress Note for:: 08/28/17 Subjective:: The patient is a very pleasant 72 yr old gentleman with aphasia and L hemiparesis from prior CVA. He is on xarelto for anticoagulation for recurrent strokes. he has a PEG tube and a chronic [place]. He developed abdominal distension and increased residuals, with some blood tinged fluid from PEG tubeon 08/26/17 He appeared to be severely constipated. Symptoms resolved with enema. Abd xray today showe marked improvement. Tube feeds have been restarted, increase rate slowly, check for residuals. Restart xarelto. Reason For Visit: COPD,EXACERBATION Physical Exam Vital Signs: Temp Pulse Resp BP Pulse Ox 98.7 F 60 16 156/76 H 99 08/28/17 07:37 08/28/17 07:39 08/28/17 07:39 08/28/17 07:37 08/28/17 07:39 Intake & Output 08/27/17 08/28/17 08/29/17 06:59 06:59 06:59 Intake Total 100 777 Output Total 600 1375 Balance -500 -598 Weight 71.6 kg 73.3 kg General appearance: PRESENT: no acute distress Head exam: PRESENT: normocephalic Eye exam: ABSENT: scleral icterus Ear exam: PRESENT: normal external ear exam Mouth exam: PRESENT: moist Neck exam: ABSENT: tracheal deviation Respiratory exam: PRESENT: symmetrical, unlabored. ABSENT: rhonchi Cardiovascular exam: PRESENT: RRR GI/Abdominal exam: PRESENT: normal bowel sounds, soft, other - PEG present. ABSENT: tenderness Rectal exam: PRESENT: deferred Gentrourinary exam: PRESENT: indwelling catheter Extremities exam: ABSENT: pedal edema Neurological exam: PRESENT: alert, awake, aphasic Psychiatric exam: PRESENT: appropriate affect Results Laboratory Results: 08/28/17 09:50 08/28/17 09:50 08/28/17 08/28/17 09:50 09:50 WBC 9.8 RBC 3.99 L Hgb 11.3 L Hct 34.9 L MCV 88 MCH 28.4 MCHC 32.5 RDW 14.9 H Plt Count 231 Sodium 143.4 Potassium 3.1 L Chloride 104 Carbon Dioxide 30 Anion Gap 9 BUN 21 H Creatinine 0.88 Est GFR ( Amer) > 60 Est GFR (Non-Af Amer) > 60 Glucose 142 H Calcium 10.2 08/25/17 07:01 NT-Pro-B Natriuret Pep 796 Impressions: Acute Abdomen Series 08/26/17 00:00 IMPRESSION: Gaseous distention of the colon small bowel. Low colonic obstruction in the differential. Chest X-Ray 08/26/17 00:00 IMPRESSION: No acute cardiopulmonary findings. KUB X-Ray 08/27/17 06:00 IMPRESSION: NO RADIOGRAPHIC EVIDENCE FOR ACUTE ABDOMINAL DISEASE. INTERVAL IMPROVEMENT OF PREVIOUS IDENTIFIED BOWEL DISTENTION. Assessment & Plan - Diagnosis (1) History of CVA with residual deficit Is this a current diagnosis for this admission?: Yes Plan: Stable, at baseline Continue outpatient meds, fall precautions (2) Chronic indwelling [place] catheter Is this a current diagnosis for this admission?: Yes Plan: Changed by his urologist on 08/21/17. Continue to maintain (3) BPH (benign prostatic hyperplasia) Is this a current diagnosis for this admission?: Yes Plan: Continue outpatient medications (4) Dysphagia Is this a current diagnosis for this admission?: Yes Plan: PEG tube present, tube feeds as tolerated (5) Chronic anticoagulation Is this a current diagnosis for this admission?: Yes Plan: For recurrent CVA, resume Xarelto. (6) Constipation Qualifiers: Constipation type: chronic idiopathic constipation Qualified Code(s): K59.04 - Chronic idiopathic constipation Is this a current diagnosis for this admission?: Yes Plan: Lactulose BID (7) Schizoaffective disorder Qualifiers: Schizoaffective disorder type: unspecified Qualified Code(s): F25.9 - Schizoaffective disorder, unspecified Is this a current diagnosis for this admission?: Yes Plan: On Lexapro (8) COPD exacerbation Is this a current diagnosis for this admission?: Yes Plan: Nebs, taper steroids supplemental oxygen (9) Expressive aphasia Is this a current diagnosis for this admission?: Yes Plan: Stable, at baseline (10) Coronary artery disease Qualifiers: Coronary Disease-Associated Artery/Lesion type: unspecified vessel or lesion type [place] vs. transplanted heart: unspecified whether [place] or transplanted heart Associated angina: without angina Qualified Code(s): I25.10 - Atherosclerotic heart disease of [place] coronary artery without angina pectoris Is this a current diagnosis for this admission?: Yes Plan: Continue outpatient meds (11) Ileus Is this a current diagnosis for this admission?: Yes Plan: Resolved. resume tube feeds - Time Time Spent with patient: 25-34 minutes
[2017-08-28] MEDS ORDERED: POTASSIUM CHLORIDE 20 MEQ/15 ML UDCUP ONE (16:23)
[2017-08-28] MEDS: ATORVASTATIN CALCIUM 40 MG TABLET PEG SCH (21:45)
[2017-08-29 05:12] LABS: HEMATOCRIT 33.8 % (37.9-51.0); HEMOGLOBIN 11.2 g/dL (13.5-17.0); MEAN CORPUSCULAR HEMOGLOBIN 28.9 pg (27.0-33.4); MEAN CORPUSCULAR HGB CONC 33.1 g/dL (32.0-36.0); MEAN CORPUSCULAR VOLUME 88 fl (80-97); PLATELET COUNT 227 10^3/uL (150-450); RED BLOOD COUNT 3.86 10^6/uL (4.35-5.55); WHITE BLOOD COUNT 8.7 10^3/uL (4.0-10.5)
[2017-08-29 05:35] LABS: ANION GAP 8 (5-19); BLOOD UREA NITROGEN 21 mg/dL (7-20); CALCIUM 9.6 mg/dL (8.4-10.2); CARBON DIOXIDE 29 mmol/L (22-30); CHLORIDE 105 mmol/L (98-107); GLUCOSE 109 mg/dL (75-110); POTASSIUM 3.1 mmol/L (3.6-5.0); SODIUM 142.2 mmol/L (137-145)
[2017-08-29] MEDS: IPRATROPIUM/ALBUTEROL 0.5-2.5 MG/3 ML AMPUL NEB SCH ×3 (09:03→20:20)
[2017-08-29] MEDS: POLYETHYLENE GLYCOL 3350 POWDER 17 GM/1 PACKET PEG SCH (10:46)
[2017-08-29] MEDS: LACTULOSE SYRUP 20 GM/30 ML UDCUP PEG SCH ×2 (10:46→22:36)
[2017-08-29] MEDS: METOCLOPRAMIDE HCL ORAL SOLN 10 MG/10 ML UDCUP PEG SCH ×4 (10:46→22:36)
[2017-08-29] MEDS: POTASSIUM CHLORIDE 20 MEQ/15 ML UDCUP PEG SCH (10:47)
[2017-08-29] MEDS: PREDNISONE 20 MG TABLET PEG SCH (10:47)
[2017-08-29] MEDS: METOPROLOL TARTRATE 25 MG TABLET PEG SCH ×2 (10:47→22:36)
[2017-08-29] MEDS: ESCITALOPRAM OXALATE 10 MG TABLET PEG SCH (10:50)
[2017-08-29] MEDS: RIVAROXABAN 15 MG TABLET PEG SCH (10:50)
[2017-08-29] MEDS: PANTOPRAZOLE SODIUM 40 MG VIAL IV SCH ×2 (10:50→22:37)
[2017-08-29] MEDS: BUDESONIDE/FORMOTEROL 160-4.5 MCG 60 PUFF/6 GM MDI IH SCH ×2 (10:54→22:36)
--- NOTE | 2017-08-29 16:34 | PDOC PROGRESS REPORT ---
Subjective Progress Note for:: 08/29/17 Subjective:: Patient has been complaining of abdominal pain and the tube feedings are being held He has no vomiting no nausea no fever no chills His urinary output is extremely poor Reason For Visit: COPD,EXACERBATION Physical Exam Vital Signs: Temp Pulse Resp BP Pulse Ox 98.7 F 79 18 126/76 H 97 08/29/17 15:52 08/29/17 15:52 08/29/17 15:52 08/29/17 15:52 08/29/17 15:52 Intake & Output 08/28/17 08/29/17 08/30/17 00:59 00:59 00:59 Intake Total 777 1609 Output Total 1075 1150 350 Balance -298 459 -350 Weight 71.6 kg 73.3 kg 72.7 kg General appearance: PRESENT: no acute distress Head exam: PRESENT: normocephalic Eye exam: ABSENT: scleral icterus Ear exam: PRESENT: normal external ear exam Mouth exam: PRESENT: moist Neck exam: ABSENT: tracheal deviation Respiratory exam: PRESENT: symmetrical, unlabored. ABSENT: rhonchi Cardiovascular exam: PRESENT: RRR GI/Abdominal exam: PRESENT: normal bowel sounds, soft, other - PEG present. ABSENT: tenderness Rectal exam: PRESENT: deferred Gentrourinary exam: PRESENT: indwelling catheter Extremities exam: ABSENT: pedal edema Neurological exam: PRESENT: alert, awake, aphasic Psychiatric exam: PRESENT: appropriate affect Results Laboratory Results: 08/29/17 04:38 08/29/17 04:38 08/29/17 08/29/17 04:38 04:38 WBC 8.7 RBC 3.86 L Hgb 11.2 L Hct 33.8 L MCV 88 MCH 28.9 MCHC 33.1 RDW 15.0 H Plt Count 227 Sodium 142.2 Potassium 3.1 L Chloride 105 Carbon Dioxide 29 Anion Gap 8 BUN 21 H Creatinine 0.89 Est GFR ( Amer) > 60 Est GFR (Non-Af Amer) > 60 Glucose 109 Calcium 9.6 08/25/17 07:01 NT-Pro-B Natriuret Pep 796 Impressions: Acute Abdomen Series 08/26/17 00:00 IMPRESSION: Gaseous distention of the colon small bowel. Low colonic obstruction in the differential. Chest X-Ray 08/26/17 00:00 IMPRESSION: No acute cardiopulmonary findings. KUB X-Ray 08/27/17 06:00 IMPRESSION: NO RADIOGRAPHIC EVIDENCE FOR ACUTE ABDOMINAL DISEASE. INTERVAL IMPROVEMENT OF PREVIOUS IDENTIFIED BOWEL DISTENTION. Assessment & Plan - Diagnosis (1) Chronic anticoagulation Is this a current diagnosis for this admission?: Yes (2) Chronic indwelling Pick[place] catheter Is this a current diagnosis for this admission?: Yes (3) Constipation Qualifiers: Constipation type: chronic idiopathic constipation Qualified Code(s): K59.04 - Chronic idiopathic constipation Is this a current diagnosis for this admission?: Yes (4) Dysphagia Is this a current diagnosis for this admission?: Yes (5) History of CVA with residual deficit Is this a current diagnosis for this admission?: Yes (6) Ileus Is this a current diagnosis for this admission?: Yes (7) Schizoaffective disorder Qualifiers: Schizoaffective disorder type: unspecified Qualified Code(s): F25.9 - Schizoaffective disorder, unspecified Is this a current diagnosis for this admission?: Yes (8) Constipation Qualifiers: Constipation type: slow transit constipation Qualified Code(s): K59.01 - Slow transit constipation Is this a current diagnosis for this admission?: Yes - Time Time Spent with patient: Repeat labs Repeat KUB Hold feedings for now IV fluids; will give patient fluid bolus We will repeat urine analysis urine culture and blood cultures Time Spent with patient: 25-34 minutes - Inpatient Certification Based on my medical assessment, after consideration of the patient's comorbidities, presenting symptoms, or acuity I expect that the services needed warrant INPATIENT care.: Yes I certify that my determination is in accordance with my understanding of Medicare's requirements for reasonable and necessary INPATIENT services [42 CFR 412.3e].: Yes Medical Necessity: Need For IV Fluids
[2017-08-29] MEDS ORDERED: NORMAL SALINE 1000 ML 1,000 ML IV ONE (17:00)
--- NOTE | 2017-08-29 17:17 | RADIOLOGY REPORT (SQ) ---
EXAM DESCRIPTION: KUB/ABDOMEN (SINGLE VIEW) COMPLETED DATE/TIME: 08/29/2017 5:00 pm REASON FOR STUDY: abdominal pain COMPARISON: 08/27/2017 NUMBER OF VIEWS: One view. TECHNIQUE: Supine radiographic image of the abdomen acquired. LIMITATIONS: None. FINDINGS: BOWEL GAS PATTERN: There is moderate gaseous distension of the colon which appears more pr onounced when correlated with the previous study. Air is identified in the rectum. CALCIFICATIONS: No suspicious calcifications. SOFT TISSUES: No gross mass or suggestion of organomegaly. HARDWARE: Gastrostomy tube is again identified. BONES: No acute fracture. No worrisome bone lesions. OTHER: No other significant finding. IMPRESSION: There is moderate gaseous distension of the colon which appears more pronounced when cor related with the previous study. Air is identified in the rectum. Other findings as noted above. TECHNICAL DOCUMENTATION: JOB ID: [id number] [employer]- All Rights Reserved Reading location - IP/workstation name: [email or web address]
[2017-08-29] MEDS: ATORVASTATIN CALCIUM 40 MG TABLET PEG SCH (22:36)
[2017-08-30] MEDS: IPRATROPIUM/ALBUTEROL 0.5-2.5 MG/3 ML AMPUL NEB SCH ×3 (07:44→19:58)
[2017-08-30 08:35] LABS: HEMATOCRIT 34.6 % (37.9-51.0); HEMOGLOBIN 11.3 g/dL (13.5-17.0); MEAN CORPUSCULAR HEMOGLOBIN 28.8 pg (27.0-33.4); MEAN CORPUSCULAR HGB CONC 32.7 g/dL (32.0-36.0); MEAN CORPUSCULAR VOLUME 88 fl (80-97); PLATELET COUNT 219 10^3/uL (150-450); RED BLOOD COUNT 3.93 10^6/uL (4.35-5.55); RED CELL DISTRIBUTION WIDTH 14.9 % (11.5-14.0)
[2017-08-30 08:44] LABS: APPEARANCE,URINE CLOUDY; BILIRUBIN,URINE NEGATIVE (NEGATIVE); CALCIUM OXALATE CRYSTALS,URINE RARE /HPF; COLOR,URINE YELLOW; GLUCOSE, URINE NEGATIVE (NEGATIVE); KETONES,URINE NEGATIVE (NEGATIVE); LEUKOCYTE ESTERASE,URINE LARGE (NEGATIVE); NITRITE,URINE NEGATIVE (NEGATIVE); PROTEIN,URINE NEGATIVE (NEGATIVE); URIC ACID CRYSTALS,URINE FEW /HPF; URINE SPECIFIC GRAVITY 1.013; UROBILINOGEN,URINE NEGATIVE mg/dL (<2.0)
[2017-08-30 08:58] LABS: ANION GAP 7 (5-19); BLOOD UREA NITROGEN 15 mg/dL (7-20); CALCIUM 9.3 mg/dL (8.4-10.2); CARBON DIOXIDE 30 mmol/L (22-30); CHLORIDE 106 mmol/L (98-107); GLUCOSE 77 mg/dL (75-110); POTASSIUM 3.2 mmol/L (3.6-5.0); SODIUM 143.1 mmol/L (137-145)
[2017-08-30] MEDS: POLYETHYLENE GLYCOL 3350 POWDER 17 GM/1 PACKET PEG SCH (10:26)
[2017-08-30] MEDS: POTASSIUM CHLORIDE 20 MEQ/15 ML UDCUP PEG SCH (10:27)
[2017-08-30] MEDS: LACTULOSE SYRUP 20 GM/30 ML UDCUP PEG SCH ×2 (10:27→22:11)
[2017-08-30] MEDS: ESCITALOPRAM OXALATE 10 MG TABLET PEG SCH (10:28)
[2017-08-30] MEDS: METOCLOPRAMIDE HCL ORAL SOLN 10 MG/10 ML UDCUP PEG SCH ×4 (10:28→22:11)
[2017-08-30] MEDS: PREDNISONE 20 MG TABLET PEG SCH (10:28)
[2017-08-30] MEDS: RIVAROXABAN 15 MG TABLET PEG SCH (10:29)
[2017-08-30] MEDS: METOPROLOL TARTRATE 25 MG TABLET PEG SCH ×2 (10:30→22:11)
[2017-08-30] MEDS: BUDESONIDE/FORMOTEROL 160-4.5 MCG 60 PUFF/6 GM MDI IH SCH ×2 (10:36→22:11)
[2017-08-30] MEDS: NORMAL SALINE 1000 ML 1,000 ML IV PRN (10:37)
[2017-08-30] MEDS ORDERED: POTASSIUM CHLORIDE 10 MEQ TABLET.SA PO ONE (11:00)
--- NOTE | 2017-08-30 11:24 | PDOC PROGRESS REPORT ---
Subjective Progress Note for:: 08/30/17 Subjective:: Patient has been complaining of abdominal pain and the tube feedings are being held He has no vomiting no nausea no fever no chills His urinary output is extremely poor 08/30 improvement of abdominal pain patient has been kept NPO marked ileus on KUB on 08/29 Reason For Visit: COPD,EXACERBATION Physical Exam Vital Signs: Temp Pulse Resp BP Pulse Ox 97.4 F 72 18 158/84 H 100 08/30/17 07:18 08/30/17 07:44 08/30/17 07:44 08/30/17 07:18 08/30/17 07:44 Intake & Output 08/29/17 08/30/17 08/31/17 00:59 00:59 00:59 Intake Total 1609 1878 0 Output Total 1150 900 300 Balance 459 978 -300 Weight 73.3 kg 72.7 kg 72.6 kg General appearance: PRESENT: no acute distress, cooperative, well-developed, well-nourished Head exam: PRESENT: atraumatic, normocephalic Eye exam: PRESENT: conjunctiva pink, EOMI, PERRLA. ABSENT: scleral icterus Neck exam: ABSENT: carotid bruit, JVD, lymphadenopathy, thyromegaly Respiratory exam: PRESENT: clear to auscultation eric. ABSENT: rales, rhonchi, wheezes Cardiovascular exam: PRESENT: bradycardia GI/Abdominal exam: PRESENT: distended, normal bowel sounds, soft Extremities exam: PRESENT: full ROM. ABSENT: calf tenderness, clubbing, pedal edema Results Laboratory Results: 08/30/17 08:00 08/30/17 08:00 08/30/17 08/30/17 08/30/17 08:00 08:00 08:10 WBC 8.0 RBC 3.93 L Hgb 11.3 L Hct 34.6 L MCV 88 MCH 28.8 MCHC 32.7 RDW 14.9 H Plt Count 219 Sodium 143.1 Potassium 3.2 L Chloride 106 Carbon Dioxide 30 Anion Gap 7 BUN 15 Creatinine 0.79 Est GFR ( Amer) > 60 Est GFR (Non-Af Amer) > 60 Glucose 77 Calcium 9.3 Urine Color YELLOW Urine Appearance CLOUDY Urine pH 6.0 Ur Specific Red Level 1.013 Urine Protein NEGATIVE Urine Glucose (UA) NEGATIVE Urine Ketones NEGATIVE Urine Blood LARGE H Urine Nitrite NEGATIVE Ur Leukocyte Esterase LARGE H Urine WBC (Auto) 167 Urine RBC (Auto) >182 08/25/17 07:01 NT-Pro-B Natriuret Pep 796 Impressions: Acute Abdomen Series 08/26/17 00:00 IMPRESSION: Gaseous distention of the colon small bowel. Low colonic obstruction in the differential. Chest X-Ray 08/26/17 00:00 IMPRESSION: No acute cardiopulmonary findings. KUB X-Ray 08/29/17 16:31 IMPRESSION: There is moderate gaseous distension of the colon which appears more pronounced when correlated with the previous study. Air is identified in the rectum. Other findings as noted above. Assessment & Plan - Diagnosis (1) Chronic anticoagulation Is this a current diagnosis for this admission?: Yes Plan: continue xarelto (2) Chronic indwelling [place] catheter Is this a current diagnosis for this admission?: Yes (3) Constipation Qualifiers: Constipation type: chronic idiopathic constipation Qualified Code(s): K59.04 - Chronic idiopathic constipation Is this a current diagnosis for this admission?: Yes (4) Dysphagia Is this a current diagnosis for this admission?: Yes (5) History of CVA with residual deficit Is this a current diagnosis for this admission?: Yes (6) Ileus Is this a current diagnosis for this admission?: Yes Plan: Persistent ileus with increase bowel gas and distension will initiate enemas Erythro IV as prokinetic agent will attemp to resume feedings at low rate check for residual q shift (7) Schizoaffective disorder Qualifiers: Schizoaffective disorder type: unspecified Qualified Code(s): F25.9 - Schizoaffective disorder, unspecified Is this a current diagnosis for this admission?: Yes (8) Constipation Qualifiers: Constipation type: slow transit constipation Qualified Code(s): K59.01 - Slow transit constipation Is this a current diagnosis for this admission?: Yes (9) Hypokalemia Is this a current diagnosis for this admission?: Yes Plan: replace - Time Time Spent with patient: resume tube feeds KUB in am Time Spent with patient: 25-34 minutes
[2017-08-30] MEDS ORDERED: POTASSIUM CHLORIDE 20 MEQ/15 ML UDCUP PEG ONE (11:30)
[2017-08-30] MEDS ORDERED: ERYTHROMYCIN LACTOBIONATE 250 MG in NORMAL SALINE 100 ML IV SCH (12:00)
[2017-08-30] MEDS: MINERAL OIL ENEMA 133 ML PR SCH (18:46)
[2017-08-30] MEDS: ERYTHROMYCIN ETHYLSUCC 400 MG/5 ML SUSP 100 ML PEG SCH (18:47)
[2017-08-30] MEDS: ATORVASTATIN CALCIUM 40 MG TABLET PEG SCH (22:11)
[2017-08-31] MEDS: MINERAL OIL ENEMA 133 ML PR SCH ×4 (01:09→18:25)
[2017-08-31] MEDS: NORMAL SALINE 1000 ML 1,000 ML IV PRN ×2 (06:33→14:36)
[2017-08-31] MEDS: IPRATROPIUM/ALBUTEROL 0.5-2.5 MG/3 ML AMPUL NEB SCH ×3 (08:11→19:48)
[2017-08-31] MEDS: METOCLOPRAMIDE HCL ORAL SOLN 10 MG/10 ML UDCUP PEG SCH ×3 (11:31→18:30)
[2017-08-31] MEDS: LACTULOSE SYRUP 20 GM/30 ML UDCUP PEG SCH (11:31)
[2017-08-31] MEDS: POTASSIUM CHLORIDE 20 MEQ/15 ML UDCUP PEG SCH (11:32)
[2017-08-31] MEDS: BUDESONIDE/FORMOTEROL 160-4.5 MCG 60 PUFF/6 GM MDI IH SCH (11:34)
[2017-08-31] MEDS: RIVAROXABAN 15 MG TABLET PEG SCH (11:34)
[2017-08-31] MEDS: METOPROLOL TARTRATE 25 MG TABLET PEG SCH (11:36)
[2017-08-31] MEDS: POLYETHYLENE GLYCOL 3350 POWDER 17 GM/1 PACKET PEG SCH (11:37)
[2017-08-31] MEDS: ERYTHROMYCIN ETHYLSUCC 400 MG/5 ML SUSP 100 ML PEG SCH ×2 (11:39→18:25)
[2017-08-31] MEDS ORDERED: ACETAMINOPHEN SOLN 325 MG/10.15 ML UDCUP PEG PRN (15:05)
--- NOTE | 2017-08-31 18:28 | RADIOLOGY REPORT (SQ) ---
EXAM DESCRIPTION: CT ABD/PELVIS NO ORAL OR IV COMPLETED DATE/TIME: 08/31/2017 6:12 pm REASON FOR STUDY: ileus persistent COMPARISON: None. TECHNIQUE: CT scan of the abdomen and pelvis performed without intravenous or oral contrast. Images reviewed with lung, soft tissue, and bone windows. Reconstructed coronal and sagittal MPR images revi ewed. All images stored on PACS. All CT scanners at this facility use dose modulation, iterative reconstruction, and/or weight based d osing when appropriate to reduce radiation dose to as low as reasonably achievable (ALARA). [facility]: Dose Right [facility]: CareDose [facility]: Dose Right [facility]: Teradose 4D [facility]: Smart TableNOW RADIATION DOSE: CT Rad equipment meets quality standard of care and radiation dose reduction techniq ues were employed. CTDIvol: 8.7 mGy. DLP: 555 mGy-cm.mGy. LIMITATIONS: None. FINDINGS: LOWER CHEST: Small bilateral pleural effusions with associated dependent subsegmental atel ectasis. NON-CONTRASTED LIVER, SPLEEN, ADRENALS: Evaluation limited by lack of IV contrast. No identified sign ificant masses. PANCREAS: No masses. No peripancreatic inflammatory changes. GALLBLADDER: No identified stones by CT criteria. No inflammatory changes to suggest cholecystitis. RIGHT KIDNEY AND URETER: No suspicious masses. Assessment limited by lack of IV contrast. No signif icant calcifications. No hydronephrosis or hydroureter. LEFT KIDNEY AND URETER: No suspicious masses. Assessment limited by lack of IV contrast. No signifi cant calcifications. No hydronephrosis or hydroureter. AORTA AND RETROPERITONEUM: No aneurysm. No retroperitoneal masses or adenopathy. BOWEL AND PERITONEAL CAVITY: Percutaneous gastrostomy tube in place. Fluid and gas seen throughout m oderately distended small and large bowel loops compatible with ileus or enteritis. No evidence of o bstruction. No obvious masses or inflammatory changes. No free fluid. APPENDIX: Not visualized. PELVIS, BLADDER, AND ABDOMINAL WALL:No abnormal masses. No free fluid. Bladder decompressed with Fole y catheter. BONES: No significant findings. OTHER: No other significant finding. IMPRESSION: MODERATE FLUID AND GAS DISTENDED SMALL AND LARGE BOWEL LOOPS SUGGESTIVE OF ENTERITIS OR ILEUS. NO OBSTRUCTION OR INFLAMMATORY CHANGE IDENTIFIED. SMALL BILATERAL PLEURAL EFFUSIONS. PERCUTANEOUS GASTROSTOMY TUBE. COMMENT: Quality ID # [id number]: Final reports with documentation of one or more dose reduction techniques (e.g., Automated exposure control, adjustment of the mA and/or kV according to patient size, use of iterative reconstruction technique) TECHNICAL DOCUMENTATION: JOB ID: [id number] [employer]- All Rights Reserved Reading location - IP/workstation name: [email or web address]
--- NOTE | 2017-08-31 19:09 | PDOC PROGRESS REPORT ---
Subjective Progress Note for:: 08/31/17 Subjective:: Patient has been complaining of abdominal pain and the tube feedings are being held He has no vomiting no nausea no fever no chills His urinary output is extremely poor 08/30 improvement of abdominal pain patient has been kept NPO marked ileus on KUB on 08/29 08/31 Patient still complaining of intermittent abdominal pain Feeding where discontinued CT abdomen and pelvis did confirm an ileus without obstruction Reason For Visit: COPD,EXACERBATION Physical Exam Vital Signs: Temp Pulse Resp BP Pulse Ox 98.1 F 93 14 103/57 L 98 08/31/17 15:16 08/31/17 15:16 08/31/17 15:16 08/31/17 15:16 08/31/17 15:56 Intake & Output 08/30/17 08/31/17 09/01/17 00:59 00:59 00:59 Intake Total 1878 2030 2741 Output Total 900 1625 875 Balance 933 983 3377 Weight 72.7 kg 72.6 kg 74.5 kg Results Laboratory Results: 08/30/17 08:00 08/30/17 08:00 08/25/17 07:01 NT-Pro-B Natriuret Pep 796 Impressions: Acute Abdomen Series 08/26/17 00:00 IMPRESSION: Gaseous distention of the colon small bowel. Low colonic obstruction in the differential. Chest X-Ray 08/26/17 00:00 IMPRESSION: No acute cardiopulmonary findings. KUB X-Ray 08/29/17 16:31 IMPRESSION: There is moderate gaseous distension of the colon which appears more pronounced when correlated with the previous study. Air is identified in the rectum. Other findings as noted above. Abdomen/Pelvis CT 08/31/17 14:14 IMPRESSION: MODERATE FLUID AND GAS DISTENDED SMALL AND LARGE BOWEL LOOPS SUGGESTIVE OF ENTERITIS OR ILEUS. NO OBSTRUCTION OR INFLAMMATORY CHANGE IDENTIFIED. SMALL BILATERAL PLEURAL EFFUSIONS. PERCUTANEOUS GASTROSTOMY TUBE. Assessment & Plan - Diagnosis (1) Chronic anticoagulation Is this a current diagnosis for this admission?: Yes (2) Chronic indwelling Pickard catheter Is this a current diagnosis for this admission?: Yes (3) Constipation Qualifiers: Constipation type: chronic idiopathic constipation Qualified Code(s): K59.04 - Chronic idiopathic constipation Is this a current diagnosis for this admission?: Yes (4) Dysphagia Is this a current diagnosis for this admission?: Yes (5) History of CVA with residual deficit Is this a current diagnosis for this admission?: Yes (6) Ileus Is this a current diagnosis for this admission?: Yes Plan: Persistent ileus with increase bowel gas and distension will initiate enemas Erythro IV as prokinetic agent will attemp to resume feedings at low rate check for residual q shift 08/31 Continue to hold feedings Continue present management We will follow with daily KUBs (7) Schizoaffective disorder Qualifiers: Schizoaffective disorder type: unspecified Qualified Code(s): F25.9 - Schizoaffective disorder, unspecified Is this a current diagnosis for this admission?: Yes (8) Constipation Qualifiers: Constipation type: slow transit constipation Qualified Code(s): K59.01 - Slow transit constipation Is this a current diagnosis for this admission?: Yes (9) Hypokalemia Is this a current diagnosis for this admission?: Yes (10) UTI (urinary tract infection) Is this a current diagnosis for this admission?: Yes Plan: Initiate ceftriaxone Culture pending - Time Time Spent with patient: 15-24 minutes
[2017-08-31] MEDS ORDERED: CEFTRIAXONE 1 GM/D5W RTU 1 GM/50 ML RTUPB IV SCH (20:00)
[2017-08-31] MEDS ORDERED: CEFTRIAXONE SODIUM 1,000 MG in DEXTROSE 5%-WATER 50 ML IV SCH ×2 (20:00→22:00)
[2017-09-01] MEDS: METOPROLOL TARTRATE 25 MG TABLET PEG SCH ×2 (00:11→09:54)
[2017-09-01] MEDS: BUDESONIDE/FORMOTEROL 160-4.5 MCG 60 PUFF/6 GM MDI IH SCH ×3 (00:11→23:02)
[2017-09-01] MEDS: ATORVASTATIN CALCIUM 40 MG TABLET PEG SCH (00:11)
[2017-09-01] MEDS: LACTULOSE SYRUP 20 GM/30 ML UDCUP PEG SCH ×3 (00:11→23:03)
[2017-09-01] MEDS: METOCLOPRAMIDE HCL ORAL SOLN 10 MG/10 ML UDCUP PEG SCH ×5 (00:11→23:03)
[2017-09-01] MEDS: MINERAL OIL ENEMA 133 ML PR SCH ×5 (00:12→23:03)
[2017-09-01 05:54] LABS: HEMATOCRIT 35.4 % (37.9-51.0); HEMOGLOBIN 11.5 g/dL (13.5-17.0); MEAN CORPUSCULAR HEMOGLOBIN 28.3 pg (27.0-33.4); MEAN CORPUSCULAR HGB CONC 32.4 g/dL (32.0-36.0); MEAN CORPUSCULAR VOLUME 87 fl (80-97); PLATELET COUNT 226 10^3/uL (150-450); RED BLOOD COUNT 4.05 10^6/uL (4.35-5.55); RED CELL DISTRIBUTION WIDTH 14.8 % (11.5-14.0); WHITE BLOOD COUNT 7.8 10^3/uL (4.0-10.5)
[2017-09-01 06:12] LABS: ANION GAP 7 (5-19); BLOOD UREA NITROGEN 10 mg/dL (7-20); CALCIUM 9.1 mg/dL (8.4-10.2); CARBON DIOXIDE 27 mmol/L (22-30); CHLORIDE 108 mmol/L (98-107); GLUCOSE 94 mg/dL (75-110); POTASSIUM 3.5 mmol/L (3.6-5.0); SODIUM 142.3 mmol/L (137-145)
[2017-09-01 06:13] LABS: ABSOLUTE LYMPHOCYTES# (MANUAL) 1.7 10^3/uL (0.5-4.7); ABSOLUTE MONOCYTES # (MANUAL) 0.4 10^3/uL (0.1-1.4); ABSOLUTE NEUTROPHILS# (MANUAL) 5.3 10^3/uL (1.7-8.2); ANISOCYTOSIS SLIGHT; BAND NEUTROPHILS % (MANUAL) 1 % (3-5); BASOPHILS % (MANUAL) 0 % (0-2); BURR CELLS SLIGHT; EOSINOPHILS % (MANUAL) 5 % (0-6); LYMPHOCYTES % (MANUAL) 22 % (13-45); MONOCYTES % (MANUAL) 5 % (3-13); OVALOCYTES SLIGHT; PLATELET COMMENT ADEQUATE; POIKILOCYTOSIS SLIGHT; SEGMENTED NEUTROPHILS % (MAN) 67 % (42-78); TOTAL CELLS COUNTED 100
[2017-09-01] MEDS: IPRATROPIUM/ALBUTEROL 0.5-2.5 MG/3 ML AMPUL NEB SCH ×3 (08:45→19:50)
--- NOTE | 2017-09-01 09:06 | RADIOLOGY REPORT (SQ) ---
EXAM DESCRIPTION: KUB/ABDOMEN (SINGLE VIEW) COMPLETED DATE/TIME: 09/01/2017 8:55 am REASON FOR STUDY: ileus COMPARISON: KUB 08/29/2017, 08/27/2017, 08/26/2017, of 06/30/2017 CT abdomen pelvis 08/31/2017 NUMBER OF VIEWS: One view. TECHNIQUE: Supine radiographic image of the abdomen acquired. LIMITATIONS: None. FINDINGS: BOWEL GAS PATTERN: Diffuse gaseous distension of small bowel and colon. Stomach decompres sed. CALCIFICATIONS: No suspicious calcifications. SOFT TISSUES: No gross mass or suggestion of organomegaly. HARDWARE: Gastrostomy tube tip over the gastric body. BONES: Osteopenic. OTHER: No other significant finding. IMPRESSION: Persisting gaseous distension of colon and small bowel. Rectosigmoid air bubble present . This most likely represents an ileus and is unchanged compared to studies dating back to 08/26/2017 . TECHNICAL DOCUMENTATION: JOB ID: [id number] [employer]- All Rights Reserved Reading location - IP/workstation name: [email or web address]
[2017-09-01] MEDS: ERYTHROMYCIN ETHYLSUCC 400 MG/5 ML SUSP 100 ML PEG SCH (09:47)
[2017-09-01] MEDS: POLYETHYLENE GLYCOL 3350 POWDER 17 GM/1 PACKET PEG SCH (09:47)
[2017-09-01] MEDS: RIVAROXABAN 15 MG TABLET PEG SCH (09:48)
[2017-09-01] MEDS: POTASSIUM CHLORIDE 20 MEQ/15 ML UDCUP PEG SCH (09:48)
[2017-09-01] MEDS: ESCITALOPRAM OXALATE 10 MG TABLET PEG SCH (09:55)
--- NOTE | 2017-09-01 14:58 | PDOC PROGRESS REPORT ---
Subjective Progress Note for:: 09/01/17 Subjective:: Patient has been complaining of abdominal pain and the tube feedings are being held He has no vomiting no nausea no fever no chills His urinary output is extremely poor 08/30 improvement of abdominal pain patient has been kept NPO marked ileus on KUB on 08/29 08/31 Patient still complaining of intermittent abdominal pain Feeding where discontinued CT abdomen and pelvis did confirm an ileus without obstruction 09/01 abdominal pain and distension still persistent tube feedings still on hold Reason For Visit: COPD,EXACERBATION Physical Exam Vital Signs: Temp Pulse Resp BP Pulse Ox 97.5 F 79 16 140/82 H 94 09/01/17 11:38 09/01/17 13:54 09/01/17 13:54 09/01/17 11:38 09/01/17 13:54 Intake & Output 08/31/17 09/01/17 09/02/17 00:59 00:59 00:59 Intake Total 2030 2741 1242 Output Total 1625 875 850 Balance 405 1866 392 Weight 72.6 kg 74.5 kg 73.6 kg General appearance: PRESENT: no acute distress, cooperative, well-developed, well-nourished Head exam: PRESENT: atraumatic, normocephalic Eye exam: PRESENT: conjunctiva pink, EOMI, PERRLA. ABSENT: scleral icterus Neck exam: ABSENT: carotid bruit, JVD, lymphadenopathy, thyromegaly Respiratory exam: PRESENT: clear to auscultation eric. ABSENT: rales, rhonchi, wheezes Cardiovascular exam: PRESENT: bradycardia GI/Abdominal exam: PRESENT: distended, normal bowel sounds, soft Extremities exam: PRESENT: full ROM. ABSENT: calf tenderness, clubbing, pedal edema Results Laboratory Results: 09/01/17 05:30 09/01/17 05:30 09/01/17 09/01/17 05:30 05:30 WBC 7.8 RBC 4.05 L Hgb 11.5 L Hct 35.4 L MCV 87 MCH 28.3 MCHC 32.4 RDW 14.8 H Plt Count 226 Seg Neutrophils % Not Reportable Lymphocytes % Not Reportable Monocytes % Not Reportable Eosinophils % Not Reportable Basophils % Not Reportable Absolute Neutrophils Not Reportable Absolute Lymphocytes Not Reportable Absolute Monocytes Not Reportable Absolute Eosinophils Not Reportable Absolute Basophils Not Reportable Sodium 142.3 Potassium 3.5 L Chloride 108 H Carbon Dioxide 27 Anion Gap 7 BUN 10 Creatinine 0.83 Est GFR ( Amer) > 60 Est GFR (Non-Af Amer) > 60 Glucose 94 Calcium 9.1 Magnesium 1.6 08/30/17 08:10 Pickard Catheter Urine Culture - Final Pseudomonas Aeruginosa 08/25/17 07:01 NT-Pro-B Natriuret Pep 796 Impressions: Acute Abdomen Series 08/26/17 00:00 IMPRESSION: Gaseous distention of the colon small bowel. Low colonic obstruction in the differential. Chest X-Ray 08/26/17 00:00 IMPRESSION: No acute cardiopulmonary findings. Abdomen/Pelvis CT 08/31/17 14:14 IMPRESSION: MODERATE FLUID AND GAS DISTENDED SMALL AND LARGE BOWEL LOOPS SUGGESTIVE OF ENTERITIS OR ILEUS. NO OBSTRUCTION OR INFLAMMATORY CHANGE IDENTIFIED. SMALL BILATERAL PLEURAL EFFUSIONS. PERCUTANEOUS GASTROSTOMY TUBE. KUB X-Ray 09/01/17 06:00 IMPRESSION: Persisting gaseous distension of colon and small bowel. Rectosigmoid air bubble present. This most likely represents an ileus and is unchanged compared to studies dating back to 08/26/2017. Assessment & Plan - Diagnosis (1) Chronic anticoagulation Is this a current diagnosis for this admission?: Yes (2) Chronic indwelling Pickard catheter Is this a current diagnosis for this admission?: Yes (3) Constipation Qualifiers: Constipation type: chronic idiopathic constipation Qualified Code(s): K59.04 - Chronic idiopathic constipation Is this a current diagnosis for this admission?: Yes (4) Dysphagia Is this a current diagnosis for this admission?: Yes (5) History of CVA with residual deficit Is this a current diagnosis for this admission?: Yes (6) Ileus Is this a current diagnosis for this admission?: Yes Plan: Persistent ileus with increase bowel gas and distension will initiate enemas Erythro IV as prokinetic agent will attemp to resume feedings at low rate check for residual q shift 08/31 Continue to hold feedings Continue present management We will follow with daily KUBs 09/01 CT abd and pelvis no obstruction No improvement with medical management We will obtain a surgical consult (7) Schizoaffective disorder Qualifiers: Schizoaffective disorder type: unspecified Qualified Code(s): F25.9 - Schizoaffective disorder, unspecified Is this a current diagnosis for this admission?: Yes (8) Constipation Qualifiers: Constipation type: slow transit constipation Qualified Code(s): K59.01 - Slow transit constipation Is this a current diagnosis for this admission?: Yes (9) Hypokalemia Is this a current diagnosis for this admission?: Yes (10) UTI (urinary tract infection) Is this a current diagnosis for this admission?: Yes - Time Time Spent with patient: 25-34 minutes
--- NOTE | 2017-09-01 16:00 | RADIOLOGY REPORT (SQ) ---
EXAM DESCRIPTION: BARIUM ENEMA COMPLETED DATE/TIME: 09/01/2017 3:41 pm REASON FOR STUDY: rule out rectosigmoid mass/obstruciton COMPARISON: CT abdomen pelvis 06/25/2017, 08/31/2017 Abdominal films 06/28/2017, 06/30/2017, 08/26/2017, 08/27/2017, 08/29/2017, 09/01/2017 FLUOROSCOPY TIME: 2.4 minutes 25 digital radiographic images saved to PACS. TECHNIQUE: Following retrograde filling of the colon with Gastrografin, fluoroscopic spot and overhe ad imaging of the colon was obtained and saved to PACS. LIMITATIONS: None. FINDINGS: Min[employer]or film demonstrates persistent diffuse gaseous distension of colon and small bowel wor risome for ileus. Gentle gravity retrograde infusion of Gastrografin through the colon demonstrates no colon obstructio n. No stricture. No gross masses. There is a gastrostomy tube with the tip in the body of the stomach. Results called to Dr. Slacedo IMPRESSION: No distal colon obstruction. Bowel gas pattern compatible with ileus COMMENT: Quality ID [id number]: Final reports for procedures using fluoroscopy that document radiation exp osure indices, or exposure time and number of fluorographic images (if radiation exposure indices are not available) TECHNICAL DOCUMENTATION: JOB ID: [id number] [employer]- All Rights Reserved Reading location - IP/workstation name: [email or web address]
--- NOTE | 2017-09-01 17:47 | PDOC PROGRESS REPORT ---
Subjective Progress Note for:: 09/01/17 Subjective:: distended abdomen Reason For Visit: distended abdomen, KUB significant for gasesous distention of small and entire large bowel Physical Exam Vital Signs: Temp Pulse Resp BP Pulse Ox 97.5 F 79 16 140/82 H 94 09/01/17 11:38 09/01/17 13:54 09/01/17 13:54 09/01/17 11:38 09/01/17 13:54 Intake & Output 08/31/17 09/01/17 09/02/17 06:59 06:59 06:59 Intake Total 2454 3559 Output Total 1800 1250 Balance 654 2309 Weight 74.5 kg 73.6 kg General appearance: PRESENT: no acute distress, cooperative Respiratory exam: PRESENT: clear to auscultation eric Cardiovascular exam: PRESENT: RRR GI/Abdominal exam: PRESENT: distended, soft, other - no bowel sounds Results Laboratory Results: 09/01/17 05:30 09/01/17 05:30 09/01/17 09/01/17 05:30 05:30 WBC 7.8 RBC 4.05 L Hgb 11.5 L Hct 35.4 L MCV 87 MCH 28.3 MCHC 32.4 RDW 14.8 H Plt Count 226 Seg Neutrophils % Not Reportable Lymphocytes % Not Reportable Monocytes % Not Reportable Eosinophils % Not Reportable Basophils % Not Reportable Absolute Neutrophils Not Reportable Absolute Lymphocytes Not Reportable Absolute Monocytes Not Reportable Absolute Eosinophils Not Reportable Absolute Basophils Not Reportable Sodium 142.3 Potassium 3.5 L Chloride 108 H Carbon Dioxide 27 Anion Gap 7 BUN 10 Creatinine 0.83 Est GFR ( Amer) > 60 Est GFR (Non-Af Amer) > 60 Glucose 94 Calcium 9.1 Magnesium 1.6 08/30/17 08:10 Pickard Catheter Urine Culture - Final Pseudomonas Aeruginosa 08/25/17 07:01 NT-Pro-B Natriuret Pep 796 Impressions: Acute Abdomen Series 08/26/17 00:00 IMPRESSION: Gaseous distention of the colon small bowel. Low colonic obstruction in the differential. Chest X-Ray 08/26/17 00:00 IMPRESSION: No acute cardiopulmonary findings. Abdomen/Pelvis CT 08/31/17 14:14 IMPRESSION: MODERATE FLUID AND GAS DISTENDED SMALL AND LARGE BOWEL LOOPS SUGGESTIVE OF ENTERITIS OR ILEUS. NO OBSTRUCTION OR INFLAMMATORY CHANGE IDENTIFIED. SMALL BILATERAL PLEURAL EFFUSIONS. PERCUTANEOUS GASTROSTOMY TUBE. KUB X-Ray 09/01/17 06:00 IMPRESSION: Persisting gaseous distension of colon and small bowel. Rectosigmoid air bubble present. This most likely represents an ileus and is unchanged compared to studies dating back to 08/26/2017. Assessment & Plan - Diagnosis (1) Ileus, unspecified Is this a current diagnosis for this admission?: Yes - Plan Summary Plan Summary: A/ Unspecific ileus since 08/25/17 KUB shows both small and large bowel distention in this patient with exacerbation of COPD, bedridden, Pseudomonas UTI. stroke Multiple medication which might interfere with bowel function (Lexapro, betablocker) Oral intake via PEG @25 mL/hr Patient is receiving several oral medication which are not probably absorbed due to the ileus Pseudomonas UTI sensitive to multiple antibiotics Rule out recto-sigmoid obstructive process (gastrografin lower GI done today is negative for obstruction) P/ Keep patient NPO (hold off tube feeding) Hold off all oral meds as they probably are not absorbed at this time Discontinue Aricept Discontinue the oral beta-jennifer and replace it with a different class of antihypertensive medication Replenish the electrolytes (K, Ca, Mg, PO4) Replace Rocephin with pipracillin or ticarcillin for the Pseudomonas UTI
[2017-09-01] MEDS ORDERED: HYDRALAZINE HCL INJ/PF 20 MG/1 ML SDV IV PRN (18:26)
[2017-09-01] MEDS ORDERED: MAGNESIUM SULFATE/D5W 1 GM/100 ML RTUPB IV ONE (18:27)
--- NOTE | 2017-09-01 18:33 | Progress Note ---
Provider Note Provider Note: appreciate General Surgery Consult will initiate TPN in am replace electrolytes d/c xarelto - Lovenox SC Hydralazine PRN for BP control
[2017-09-01] MEDS: POTASSI CL 20 MEQ/50 ML RIDER 20 MEQ/50 ML RTUPB IV SCH (20:57)
[2017-09-01] MEDS: NORMAL SALINE 1000 ML 1,000 ML IV PRN (21:00)
[2017-09-01] MEDS: PIPERACILLIN SODIUM/TAZOBACTAM 3.375 GM in NORMAL SALINE 100 ML IV SCH (23:02)
[2017-09-02] MEDS: POTASSI CL 20 MEQ/50 ML RIDER 20 MEQ/50 ML RTUPB IV SCH (00:30)
[2017-09-02] MEDS: PIPERACILLIN SODIUM/TAZOBACTAM 3.375 GM in NORMAL SALINE 100 ML IV SCH ×4 (03:59→22:48)
[2017-09-02] MEDS: MINERAL OIL ENEMA 133 ML PR SCH ×2 (07:24→11:17)
--- NOTE | 2017-09-02 08:22 | RADIOLOGY REPORT (SQ) ---
EXAM DESCRIPTION: KUB/ABDOMEN (SINGLE VIEW) COMPLETED DATE/TIME: 09/02/2017 8:13 am REASON FOR STUDY: ileus COMPARISON: 09/01/2017. NUMBER OF VIEWS: One view. TECHNIQUE: Supine radiographic image of the abdomen acquired. LIMITATIONS: None. FINDINGS: BOWEL GAS PATTERN: Gas throughout the small bowel and colon. Contrast in the colon. CALCIFICATIONS: No suspicious calcifications. SOFT TISSUES: No gross mass or suggestion of organomegaly. HARDWARE: Gastrostomy tube. BONES: No acute fracture. No worrisome bone lesions. OTHER: No other significant finding. IMPRESSION: GENERALIZED ILEUS. TECHNICAL DOCUMENTATION: JOB ID: [id number] [employer]- All Rights Reserved Reading location - IP/workstation name: [email or web address]
[2017-09-02] MEDS: IPRATROPIUM/ALBUTEROL 0.5-2.5 MG/3 ML AMPUL NEB SCH ×3 (08:37→19:55)
[2017-09-02] MEDS ORDERED: PANTOPRAZOLE SODIUM 40 MG VIAL IV SCH (10:00)
[2017-09-02] MEDS: BUDESONIDE/FORMOTEROL 160-4.5 MCG 60 PUFF/6 GM MDI IH SCH ×2 (11:14→22:49)
[2017-09-02] MEDS: MAGNESIUM SULFATE/D5W 1 GM/100 ML RTUPB IV SCH ×2 (11:14→11:21)
[2017-09-02] MEDS: POLYETHYLENE GLYCOL 3350 POWDER 17 GM/1 PACKET PEG SCH (11:14)
[2017-09-02] MEDS: ENOXAPARIN SODIUM INJ 80 MG/0.8 ML DISP.SYRIN SUBCUT SCH ×2 (11:15→22:48)
[2017-09-02] MEDS: LACTULOSE SYRUP 20 GM/30 ML UDCUP PEG SCH (11:15)
[2017-09-02] MEDS: METOCLOPRAMIDE HCL ORAL SOLN 10 MG/10 ML UDCUP PEG SCH (11:15)
--- NOTE | 2017-09-02 11:55 | PDOC PROGRESS REPORT ---
Subjective Progress Note for:: 09/02/17 Subjective:: patient comfortable, no stools or flatus reported Reason For Visit: COPD,EXACERBATION Physical Exam Vital Signs: Temp Pulse Resp BP Pulse Ox 97.8 F 79 16 134/84 H 95 09/02/17 07:23 09/02/17 08:37 09/02/17 08:37 09/02/17 07:23 09/02/17 08:37 Intake & Output 09/01/17 09/02/17 09/03/17 06:59 06:59 06:59 Intake Total 3559 1801 Output Total 1250 1875 Balance 2309 -74 Weight 73.6 kg 75 kg General appearance: PRESENT: no acute distress, cooperative Respiratory exam: PRESENT: clear to auscultation eric Cardiovascular exam: PRESENT: RRR GI/Abdominal exam: PRESENT: distended, normal bowel sounds - with tingling noise , soft Results Laboratory Results: 09/01/17 05:30 09/01/17 05:30 08/25/17 07:01 NT-Pro-B Natriuret Pep 796 Impressions: Acute Abdomen Series 08/26/17 00:00 IMPRESSION: Gaseous distention of the colon small bowel. Low colonic obstruction in the differential. Chest X-Ray 08/26/17 00:00 IMPRESSION: No acute cardiopulmonary findings. Abdomen/Pelvis CT 08/31/17 14:14 IMPRESSION: MODERATE FLUID AND GAS DISTENDED SMALL AND LARGE BOWEL LOOPS SUGGESTIVE OF ENTERITIS OR ILEUS. NO OBSTRUCTION OR INFLAMMATORY CHANGE IDENTIFIED. SMALL BILATERAL PLEURAL EFFUSIONS. PERCUTANEOUS GASTROSTOMY TUBE. Barium Enema 09/01/17 00:00 IMPRESSION: No distal colon obstruction. Bowel gas pattern compatible with ileus KUB X-Ray 09/02/17 06:00 IMPRESSION: GENERALIZED ILEUS. Assessment & Plan - Diagnosis (1) Ileus, unspecified Is this a current diagnosis for this admission?: Yes - Plan Summary Plan Summary: A/ Abdomen still distended KUB shows ileus today patient NPO except for bowel regimen medications P/ Discontinue all meds via PEG Connect PEG to gravity via Pickard bag Replace K if needed Start TPN
[2017-09-02] MEDS ORDERED: DEXTROSE 40% GEL 15 GM TUBE X 2 PO PRN (12:24)
[2017-09-02] MEDS ORDERED: DEXTROSE 40% GEL 15 GM TUBE PO PRN (12:24)
[2017-09-02] MEDS ORDERED: DEXTROSE 10%-WATER 1,000 ML IV PRN (12:24)
[2017-09-02] MEDS ORDERED: DEXTROSE 50%-WATER SYRINGE 12.5 GM/25 ML DOSE IV PRN (12:24)
[2017-09-02] MEDS ORDERED: INSULIN REG, HUMAN 100 UNIT/ML 3 ML VIAL (PYX) SUBCUT PRN (12:24)
[2017-09-02] MEDS ORDERED: GLUCAGON,HUMAN RECOMB 1 MG INJ IM PRN (12:24)
[2017-09-02] MEDS ORDERED: DEXTROSE 50%-WATER SYRINGE 25 GM/50 ML DOSE IV PRN (12:24)
[2017-09-02 13:15] LABS: ALANINE AMINOTRANSFERASE 58 U/L (21-72); ALBUMIN 2.7 g/dL (3.5-5.0); ALKALINE PHOSPHATASE 35 U/L (38-126); ANION GAP 11 (5-19); ASPARTATE AMINO TRANSFERASE 20 U/L (17-59); BILIRUBIN,DIRECT 0.4 mg/dL (0.0-0.4); BILIRUBIN,TOTAL 0.5 mg/dL (0.2-1.3); BLOOD UREA NITROGEN 7 mg/dL (7-20); CALCIUM 9.1 mg/dL (8.4-10.2); CARBON DIOXIDE 26 mmol/L (22-30); CHLORIDE 108 mmol/L (98-107); GLUCOSE 86 mg/dL (75-110); POTASSIUM 3.4 mmol/L (3.6-5.0); SODIUM 144.5 mmol/L (137-145)
[2017-09-02 14:49] LABS: HEMATOCRIT 34.5 % (37.9-51.0); HEMOGLOBIN 11.3 g/dL (13.5-17.0); MEAN CORPUSCULAR HEMOGLOBIN 28.7 pg (27.0-33.4); MEAN CORPUSCULAR HGB CONC 32.8 g/dL (32.0-36.0); MEAN CORPUSCULAR VOLUME 88 fl (80-97); PLATELET COUNT 211 10^3/uL (150-450); RED BLOOD COUNT 3.94 10^6/uL (4.35-5.55); RED CELL DISTRIBUTION WIDTH 15.4 % (11.5-14.0); WHITE BLOOD COUNT 5.9 10^3/uL (4.0-10.5)
[2017-09-02 14:51] LABS: INTERNATIONAL RATION (INR) 1.13
[2017-09-02 14:52] LABS: ALANINE AMINOTRANSFERASE 51 U/L (21-72); ALBUMIN 2.7 g/dL (3.5-5.0); ALKALINE PHOSPHATASE 40 U/L (38-126); ANION GAP 8 (5-19); ASPARTATE AMINO TRANSFERASE 17 U/L (17-59); BILIRUBIN,DIRECT 0.2 mg/dL (0.0-0.4); BILIRUBIN,TOTAL 0.5 mg/dL (0.2-1.3); BLOOD UREA NITROGEN 6 mg/dL (7-20); CARBON DIOXIDE 26 mmol/L (22-30); CHLORIDE 109 mmol/L (98-107); GLUCOSE 88 mg/dL (75-110); POTASSIUM 3.2 mmol/L (3.6-5.0); SODIUM 142.5 mmol/L (137-145); TRIGLYCERIDES 59 mg/dL (<150)
[2017-09-02 14:59] LABS: PREALBUMIN 16.6 mg/dL (17.6-36.0)
[2017-09-02] MEDS: POTASSIUM CHLORIDE 20 MEQ/50 ML RTU IV SCH ×2 (16:10→17:47)
--- NOTE | 2017-09-02 16:57 | PDOC PROGRESS REPORT ---
Subjective Progress Note for:: 09/02/17 Subjective:: The patient is a 72 yr old gentleman with aphasia and L hemiparesis from prior CVA. He was on xarelto for anticoagulation for recurrent strokes. He has a PEG tube and a chronic de los santos. He has developed recurrent small bowel and colon distension with no resolution despite enema, bowel rest. No obstruction seen on barium enema. Plan to start TPN today. Reason For Visit: COPD,EXACERBATION Physical Exam Vital Signs: Temp Pulse Resp BP Pulse Ox 97.3 F 87 14 146/80 H 100 09/02/17 15:18 09/02/17 15:18 09/02/17 15:18 09/02/17 15:18 09/02/17 15:18 Intake & Output 09/01/17 09/02/17 09/03/17 06:59 06:59 06:59 Intake Total 3559 1801 Output Total 1250 1875 Balance 2309 -74 Weight 73.6 kg 75 kg General appearance: PRESENT: no acute distress Head exam: PRESENT: normocephalic Eye exam: ABSENT: scleral icterus Ear exam: PRESENT: normal external ear exam Mouth exam: PRESENT: moist Neck exam: ABSENT: tracheal deviation Respiratory exam: PRESENT: symmetrical, unlabored Cardiovascular exam: PRESENT: RRR GI/Abdominal exam: PRESENT: distended, normal bowel sounds. ABSENT: tenderness Rectal exam: PRESENT: deferred, other - PEG present Gentrourinary exam: PRESENT: indwelling catheter Extremities exam: ABSENT: pedal edema Neurological exam: PRESENT: alert, awake, aphasic Results Laboratory Results: 09/02/17 14:25 09/02/17 14:00 09/02/17 09/02/17 09/02/17 12:10 12:10 14:00 WBC RBC Hgb Hct MCV MCH MCHC RDW Plt Count Sodium Cancelled 144.5 142.5 Potassium Cancelled 3.4 L 3.2 L Chloride Cancelled 108 H 109 H Carbon Dioxide Cancelled 26 26 Anion Gap Cancelled 11 8 BUN Cancelled 7 6 L Creatinine Cancelled 0.84 0.84 Est GFR ( Amer) Cancelled > 60 > 60 Est GFR (Non-Af Amer) Cancelled > 60 > 60 Glucose Cancelled 86 88 Calcium Cancelled 9.1 9.0 Phosphorus 3.0 3.0 Magnesium 1.8 2.2 Total Bilirubin 0.5 0.5 AST 20 17 ALT 58 51 Alkaline Phosphatase 35 L 40 Total Protein 5.0 L 5.0 L Albumin 2.7 L 2.7 L Prealbumin 16.6 L Triglycerides 59 09/02/17 14:25 WBC 5.9 RBC 3.94 L Hgb 11.3 L Hct 34.5 L MCV 88 MCH 28.7 MCHC 32.8 RDW 15.4 H Plt Count 211 Sodium Potassium Chloride Carbon Dioxide Anion Gap BUN Creatinine Est GFR ( Amer) Est GFR (Non-Af Amer) Glucose Calcium Phosphorus Magnesium Total Bilirubin AST ALT Alkaline Phosphatase Total Protein Albumin Prealbumin Triglycerides 08/25/17 07:01 NT-Pro-B Natriuret Pep 796 Impressions: Acute Abdomen Series 08/26/17 00:00 IMPRESSION: Gaseous distention of the colon small bowel. Low colonic obstruction in the differential. Chest X-Ray 08/26/17 00:00 IMPRESSION: No acute cardiopulmonary findings. Abdomen/Pelvis CT 08/31/17 14:14 IMPRESSION: MODERATE FLUID AND GAS DISTENDED SMALL AND LARGE BOWEL LOOPS SUGGESTIVE OF ENTERITIS OR ILEUS. NO OBSTRUCTION OR INFLAMMATORY CHANGE IDENTIFIED. SMALL BILATERAL PLEURAL EFFUSIONS. PERCUTANEOUS GASTROSTOMY TUBE. Barium Enema 09/01/17 00:00 IMPRESSION: No distal colon obstruction. Bowel gas pattern compatible with ileus KUB X-Ray 09/02/17 06:00 IMPRESSION: GENERALIZED ILEUS. Assessment & Plan - Diagnosis (1) History of CVA with residual deficit Is this a current diagnosis for this admission?: Yes Plan: Stable, at baseline Continue outpatient meds, fall precautions (2) Chronic indwelling De [place] catheter Is this a current diagnosis for this admission?: Yes Plan: Changed by his urologist on 08/21/17. Continue to maintain (3) BPH (benign prostatic hyperplasia) Is this a current diagnosis for this admission?: Yes Plan: Resume outpatient medications once ileus resolved. (4) Dysphagia Is this a current diagnosis for this admission?: Yes (5) Chronic anticoagulation Is this a current diagnosis for this admission?: Yes Plan: For recurrent CVA, on Lovenox. (6) Constipation Qualifiers: Constipation type: chronic idiopathic constipation Qualified Code(s): K59.04 - Chronic idiopathic constipation Is this a current diagnosis for this admission?: Yes Plan: Resolved. Lactulose BID (7) Schizoaffective disorder Qualifiers: Schizoaffective disorder type: unspecified Qualified Code(s): F25.9 - Schizoaffective disorder, unspecified Is this a current diagnosis for this admission?: Yes Plan: Resume outpatient meds once Ileus resolved. (8) COPD exacerbation Is this a current diagnosis for this admission?: Yes Plan: Resolved. Continue Nebs, taper steroids supplemental oxygen. (9) Expressive aphasia Is this a current diagnosis for this admission?: Yes Plan: Stable, at baseline (10) Coronary artery disease Qualifiers: Coronary Disease-Associated Artery/Lesion type: unspecified vessel or lesion type [place] vs. transplanted heart: unspecified whether [place] or transplanted heart Associated angina: without angina Qualified Code(s): I25.10 - Atherosclerotic heart disease of [place] coronary artery without angina pectoris Is this a current diagnosis for this admission?: Yes Plan: Resume outpatient meds once Ileus resolved. (11) Ileus Is this a current diagnosis for this admission?: Yes Plan: Surgery input appreciated. No evidence of obstruction. Start TPN. PEG to gravity - Time Time Spent with patient: 35 or more minutes
[2017-09-02 17:23] LABS: APPEARANCE,URINE CLOUDY; BILIRUBIN,URINE NEGATIVE (NEGATIVE); COLOR,URINE YELLOW; GLUCOSE, URINE NEGATIVE (NEGATIVE); KETONES,URINE NEGATIVE (NEGATIVE); LEUKOCYTE ESTERASE,URINE LARGE (NEGATIVE); NITRITE,URINE POSITIVE (NEGATIVE); PROTEIN,URINE 30 mg/dL (NEGATIVE); URINE SPECIFIC GRAVITY 1.021; UROBILINOGEN,URINE NEGATIVE mg/dL (<2.0)
[2017-09-02] MEDS: AMINO ACIDS 5%/D25W 1,000 ML IV PRN (20:19)
[2017-09-03] MEDS: PIPERACILLIN SODIUM/TAZOBACTAM 3.375 GM in NORMAL SALINE 100 ML IV SCH ×4 (02:49→21:18)
[2017-09-03 05:49] LABS: ALANINE AMINOTRANSFERASE 43 U/L (21-72); ALBUMIN 2.6 g/dL (3.5-5.0); ALKALINE PHOSPHATASE 35 U/L (38-126); ANION GAP 8 (5-19); ASPARTATE AMINO TRANSFERASE 14 U/L (17-59); BILIRUBIN,DIRECT 0.2 mg/dL (0.0-0.4); BILIRUBIN,TOTAL 0.5 mg/dL (0.2-1.3); BLOOD UREA NITROGEN 7 mg/dL (7-20); CALCIUM 8.9 mg/dL (8.4-10.2); CARBON DIOXIDE 27 mmol/L (22-30); CHLORIDE 108 mmol/L (98-107); GLUCOSE 128 mg/dL (75-110); PHOSPHORUS 2.4 mg/dL (2.5-4.5); POTASSIUM 3.4 mmol/L (3.6-5.0); SODIUM 142.7 mmol/L (137-145)
[2017-09-03 05:57] LABS: PREALBUMIN 15.6 mg/dL (17.6-36.0)
--- NOTE | 2017-09-03 08:36 | RADIOLOGY REPORT (SQ) ---
EXAM DESCRIPTION: KUB/ABDOMEN (SINGLE VIEW) COMPLETED DATE/TIME: 09/03/2017 8:20 am REASON FOR STUDY: ileus COMPARISON: 09/02/2017. NUMBER OF VIEWS: One view. TECHNIQUE: Supine radiographic image of the abdomen acquired. LIMITATIONS: None. FINDINGS: BOWEL GAS PATTERN: Gas throughout the small bowel and colon. There has been a passage of contrast from the colon with some residual contrast remaining in the rectum. CALCIFICATIONS: No suspicious calcifications. SOFT TISSUES: No gross mass or suggestion of organomegaly. HARDWARE: None in the abdomen. BONES: No acute fracture. No worrisome bone lesions. OTHER: No other significant finding. IMPRESSION: NO CHANGE. PROBABLE GENERALIZED ILEUS. TECHNICAL DOCUMENTATION: JOB ID: [id number] [employer]- All Rights Reserved Reading location - IP/workstation name: [email or web address]
[2017-09-03] MEDS: IPRATROPIUM/ALBUTEROL 0.5-2.5 MG/3 ML AMPUL NEB SCH ×3 (08:54→19:38)
--- NOTE | 2017-09-03 09:23 | PDOC PROGRESS REPORT ---
Subjective Progress Note for:: 09/03/17 Subjective:: comfortable Reason For Visit: COPD,EXACERBATION Physical Exam Vital Signs: Temp Pulse Resp BP Pulse Ox 98.2 F 85 18 148/83 H 100 09/02/17 23:25 09/02/17 23:25 09/02/17 23:25 09/02/17 23:25 09/03/17 00:16 Intake & Output 09/02/17 09/03/17 09/04/17 06:59 06:59 06:59 Intake Total 1801 2339 Output Total 7953 0843 Balance -74 -14 Weight 75 kg 74.1 kg General appearance: PRESENT: no acute distress, cooperative Respiratory exam: PRESENT: chest wall tenderness Cardiovascular exam: PRESENT: RRR GI/Abdominal exam: PRESENT: hypoactive bowel sounds, soft, other - moderately distended Results Laboratory Results: 09/02/17 14:25 09/03/17 05:26 09/02/17 09/02/17 09/02/17 12:10 12:10 14:00 WBC RBC Hgb Hct MCV MCH MCHC RDW Plt Count Sodium Cancelled 144.5 142.5 Potassium Cancelled 3.4 L 3.2 L Chloride Cancelled 108 H 109 H Carbon Dioxide Cancelled 26 26 Anion Gap Cancelled 11 8 BUN Cancelled 7 6 L Creatinine Cancelled 0.84 0.84 Est GFR ( Amer) Cancelled > 60 > 60 Est GFR (Non-Af Amer) Cancelled > 60 > 60 Glucose Cancelled 86 88 Calcium Cancelled 9.1 9.0 Phosphorus 3.0 3.0 Magnesium 1.8 2.2 Total Bilirubin 0.5 0.5 AST 20 17 ALT 58 51 Alkaline Phosphatase 35 L 40 Total Protein 5.0 L 5.0 L Albumin 2.7 L 2.7 L Prealbumin 16.6 L Triglycerides 59 Urine Color Urine Appearance Urine pH Ur Specific [place] Urine Protein Urine Glucose (UA) Urine Ketones Urine Blood Urine Nitrite Ur Leukocyte Esterase Urine WBC (Auto) Urine RBC (Auto) 09/02/17 09/02/17 09/03/17 14:25 15:28 05:26 WBC 5.9 RBC 3.94 L Hgb 11.3 L Hct 34.5 L MCV 88 MCH 28.7 MCHC 32.8 RDW 15.4 H Plt Count 211 Sodium 142.7 Potassium 3.4 L Chloride 108 H Carbon Dioxide 27 Anion Gap 8 BUN 7 Creatinine 0.83 Est GFR ( Amer) > 60 Est GFR (Non-Af Amer) > 60 Glucose 128 H Calcium 8.9 Phosphorus 2.4 L Magnesium Total Bilirubin 0.5 AST 14 L ALT 43 Alkaline Phosphatase 35 L Total Protein 5.0 L Albumin 2.6 L Prealbumin 15.6 L Triglycerides Urine Color YELLOW Urine Appearance CLOUDY Urine pH 5.0 Ur Specific [place] 1.021 Urine Protein 30 H Urine Glucose (UA) NEGATIVE Urine Ketones NEGATIVE Urine Blood LARGE H Urine Nitrite POSITIVE H Ur Leukocyte Esterase LARGE H Urine WBC (Auto) >182 Urine RBC (Auto) >182 08/25/17 07:01 NT-Pro-B Natriuret Pep 796 Impressions: Acute Abdomen Series 08/26/17 00:00 IMPRESSION: Gaseous distention of the colon small bowel. Low colonic obstruction in the differential. Chest X-Ray 08/26/17 00:00 IMPRESSION: No acute cardiopulmonary findings. Abdomen/Pelvis CT 08/31/17 14:14 IMPRESSION: MODERATE FLUID AND GAS DISTENDED SMALL AND LARGE BOWEL LOOPS SUGGESTIVE OF ENTERITIS OR ILEUS. NO OBSTRUCTION OR INFLAMMATORY CHANGE IDENTIFIED. SMALL BILATERAL PLEURAL EFFUSIONS. PERCUTANEOUS GASTROSTOMY TUBE. Barium Enema 09/01/17 00:00 IMPRESSION: No distal colon obstruction. Bowel gas pattern compatible with ileus KUB X-Ray 09/03/17 06:00 IMPRESSION: NO CHANGE. PROBABLE GENERALIZED ILEUS. Assessment & Plan - Diagnosis (1) Ileus, unspecified Is this a current diagnosis for this admission?: Yes - Plan Summary Plan Summary: A/ Patienbt has had 2 bowel movement last night and flatus Abdomen soft hypoactive bowel sounds P/ Start tube feeding via PEG at low rate 5 mL/hr continue replacing electrolytes (K and Phosphorus)
[2017-09-03] MEDS: BUDESONIDE/FORMOTEROL 160-4.5 MCG 60 PUFF/6 GM MDI IH SCH ×2 (09:38→21:26)
[2017-09-03] MEDS: ENOXAPARIN SODIUM INJ 80 MG/0.8 ML DISP.SYRIN SUBCUT SCH ×2 (09:38→21:24)
[2017-09-03] MEDS ORDERED: SODIUM PHOS,M-BASIC-D-BASIC 60 MMOL in NORMAL SALINE 500 ML IV ONE (11:00)
--- NOTE | 2017-09-03 12:14 | PDOC PROGRESS REPORT ---
Subjective Progress Note for:: 09/03/17 Subjective:: 72 yr old gentleman with aphasia and L hemiparesis from prior CVA, resides in a SNF, is bed bound. He has been on Xarelto for recurrent strokes. He has a PEG tube and a chronic de los santos. the patient developed recurrent small bowel and colon distension with recurrence despite enema and bowel rest. No obstruction seen on barium enema. TPN was started on 09/02/17. He had 2 bowel movements overnight and his abdomen is less distended today. Surgery input appreciated. Reason For Visit: COPD,EXACERBATION ILEUS Physical Exam Vital Signs: Temp Pulse Resp BP Pulse Ox 98.6 F 75 16 148/89 H 97 09/03/17 08:47 09/03/17 08:54 09/03/17 08:54 09/03/17 08:47 09/03/17 08:54 Intake & Output 09/02/17 09/03/17 09/04/17 06:59 06:59 06:59 Intake Total 1801 2339 Output Total 1875 2353 Balance -74 -14 Weight 75 kg 74.1 kg General appearance: PRESENT: no acute distress Head exam: PRESENT: normocephalic Eye exam: ABSENT: scleral icterus Ear exam: PRESENT: normal external ear exam Neck exam: ABSENT: tracheal deviation Respiratory exam: PRESENT: symmetrical, unlabored Cardiovascular exam: PRESENT: RRR GI/Abdominal exam: PRESENT: hypoactive bowel sounds, soft, other - PEG tube present Rectal exam: PRESENT: deferred Gentrourinary exam: PRESENT: indwelling catheter Extremities exam: ABSENT: pedal edema Neurological exam: PRESENT: alert, awake, aphasic Psychiatric exam: PRESENT: appropriate affect Skin exam: ABSENT: petechiae Results Laboratory Results: 09/02/17 14:25 09/03/17 05:26 09/02/17 09/02/17 09/02/17 12:10 12:10 14:00 WBC RBC Hgb Hct MCV MCH MCHC RDW Plt Count Sodium Cancelled 144.5 142.5 Potassium Cancelled 3.4 L 3.2 L Chloride Cancelled 108 H 109 H Carbon Dioxide Cancelled 26 26 Anion Gap Cancelled 11 8 BUN Cancelled 7 6 L Creatinine Cancelled 0.84 0.84 Est GFR ( Amer) Cancelled > 60 > 60 Est GFR (Non-Af Amer) Cancelled > 60 > 60 Glucose Cancelled 86 88 Calcium Cancelled 9.1 9.0 Phosphorus 3.0 3.0 Magnesium 1.8 2.2 Total Bilirubin 0.5 0.5 AST 20 17 ALT 58 51 Alkaline Phosphatase 35 L 40 Total Protein 5.0 L 5.0 L Albumin 2.7 L 2.7 L Prealbumin 16.6 L Triglycerides 59 Urine Color Urine Appearance Urine pH Ur Specific [place] Urine Protein Urine Glucose (UA) Urine Ketones Urine Blood Urine Nitrite Ur Leukocyte Esterase Urine WBC (Auto) Urine RBC (Auto) 09/02/17 09/02/17 09/03/17 14:25 15:28 05:26 WBC 5.9 RBC 3.94 L Hgb 11.3 L Hct 34.5 L MCV 88 MCH 28.7 MCHC 32.8 RDW 15.4 H Plt Count 211 Sodium 142.7 Potassium 3.4 L Chloride 108 H Carbon Dioxide 27 Anion Gap 8 BUN 7 Creatinine 0.83 Est GFR ( Amer) > 60 Est GFR (Non-Af Amer) > 60 Glucose 128 H Calcium 8.9 Phosphorus 2.4 L Magnesium Total Bilirubin 0.5 AST 14 L ALT 43 Alkaline Phosphatase 35 L Total Protein 5.0 L Albumin 2.6 L Prealbumin 15.6 L Triglycerides Urine Color YELLOW Urine Appearance CLOUDY Urine pH 5.0 Ur Specific [place] 1.021 Urine Protein 30 H Urine Glucose (UA) NEGATIVE Urine Ketones NEGATIVE Urine Blood LARGE H Urine Nitrite POSITIVE H Ur Leukocyte Esterase LARGE H Urine WBC (Auto) >182 Urine RBC (Auto) >182 08/25/17 07:01 NT-Pro-B Natriuret Pep 796 Impressions: Acute Abdomen Series 08/26/17 00:00 IMPRESSION: Gaseous distention of the colon small bowel. Low colonic obstruction in the differential. Chest X-Ray 08/26/17 00:00 IMPRESSION: No acute cardiopulmonary findings. Abdomen/Pelvis CT 08/31/17 14:14 IMPRESSION: MODERATE FLUID AND GAS DISTENDED SMALL AND LARGE BOWEL LOOPS SUGGESTIVE OF ENTERITIS OR ILEUS. NO OBSTRUCTION OR INFLAMMATORY CHANGE IDENTIFIED. SMALL BILATERAL PLEURAL EFFUSIONS. PERCUTANEOUS GASTROSTOMY TUBE. Barium Enema 09/01/17 00:00 IMPRESSION: No distal colon obstruction. Bowel gas pattern compatible with ileus KUB X-Ray 09/03/17 06:00 IMPRESSION: NO CHANGE. PROBABLE GENERALIZED ILEUS. Assessment & Plan - Diagnosis (1) History of CVA with residual deficit Is this a current diagnosis for this admission?: Yes Plan: Stable, at baseline Continue outpatient meds, fall precautions (2) Chronic indwelling De [place] catheter Is this a current diagnosis for this admission?: Yes Plan: Changed by his urologist on 08/21/17. Continue to maintain (3) BPH (benign prostatic hyperplasia) Is this a current diagnosis for this admission?: Yes Plan: Resume outpatient medications once ileus resolved. (4) Dysphagia Is this a current diagnosis for this admission?: Yes Plan: PEG tube present, tube feeds as tolerated (5) Chronic anticoagulation Is this a current diagnosis for this admission?: Yes Plan: For recurrent CVA, on Lovenox. (6) Constipation Qualifiers: Constipation type: chronic idiopathic constipation Qualified Code(s): K59.04 - Chronic idiopathic constipation Is this a current diagnosis for this admission?: Yes Plan: Resolved. Lactulose BID (7) Schizoaffective disorder Qualifiers: Schizoaffective disorder type: unspecified Qualified Code(s): F25.9 - Schizoaffective disorder, unspecified Is this a current diagnosis for this admission?: Yes Plan: Resume outpatient meds once Ileus resolved. (8) COPD exacerbation Is this a current diagnosis for this admission?: Yes Plan: Resolved. Continue Nebs, taper steroids supplemental oxygen. (9) Expressive aphasia Is this a current diagnosis for this admission?: Yes Plan: Stable, at baseline (10) Coronary artery disease Qualifiers: Coronary Disease-Associated Artery/Lesion type: unspecified vessel or lesion type [place] vs. transplanted heart: unspecified whether [place] or transplanted heart Associated angina: without angina Qualified Code(s): I25.10 - Atherosclerotic heart disease of [place] coronary artery without angina pectoris Is this a current diagnosis for this admission?: Yes Plan: Resume outpatient meds once Ileus resolved. (11) Ileus Is this a current diagnosis for this admission?: Yes Plan: Surgery input appreciated. No evidence of obstruction. Continue TPN. Replete electrolytes PEG to gravity (12) Hypophosphatemia Is this a current diagnosis for this admission?: Yes Plan: Replete (13) Hypokalemia Is this a current diagnosis for this admission?: Yes Plan: Replete - Time Time Spent with patient: 35 or more minutes
[2017-09-03] MEDS ORDERED: POTASSIUM CHLORIDE 20 MEQ/50 ML RTU IV SCH ×2 (13:00→21:15)
[2017-09-03] MEDS: AMINO ACIDS 5%/D25W 1,000 ML IV PRN (20:53)
[2017-09-04] MEDS: PIPERACILLIN SODIUM/TAZOBACTAM 3.375 GM in NORMAL SALINE 100 ML IV SCH (03:45)
[2017-09-04 06:37] LABS: HEMATOCRIT 31.6 % (37.9-51.0); HEMOGLOBIN 10.5 g/dL (13.5-17.0); MEAN CORPUSCULAR HEMOGLOBIN 28.9 pg (27.0-33.4); MEAN CORPUSCULAR HGB CONC 33.1 g/dL (32.0-36.0); MEAN CORPUSCULAR VOLUME 87 fl (80-97); PLATELET COUNT 211 10^3/uL (150-450); RED BLOOD COUNT 3.62 10^6/uL (4.35-5.55); RED CELL DISTRIBUTION WIDTH 15.3 % (11.5-14.0); WHITE BLOOD COUNT 4.6 10^3/uL (4.0-10.5)
[2017-09-04 06:48] LABS: APPEARANCE,URINE CLOUDY; BILIRUBIN,URINE NEGATIVE (NEGATIVE); CALCIUM OXALATE CRYSTALS,URINE RARE /HPF; COLOR,URINE RED; GLUCOSE, URINE NEGATIVE (NEGATIVE); KETONES,URINE NEGATIVE (NEGATIVE); LEUKOCYTE ESTERASE,URINE LARGE (NEGATIVE); NITRITE,URINE POSITIVE (NEGATIVE); PROTEIN,URINE NEGATIVE (NEGATIVE); URINE SPECIFIC GRAVITY 1.014; UROBILINOGEN,URINE NEGATIVE mg/dL (<2.0)
[2017-09-04 06:55] LABS: ALANINE AMINOTRANSFERASE 36 U/L (21-72); ALBUMIN 2.5 g/dL (3.5-5.0); ALKALINE PHOSPHATASE 35 U/L (38-126); ANION GAP 7 (5-19); ASPARTATE AMINO TRANSFERASE 13 U/L (17-59); BILIRUBIN,DIRECT 0.2 mg/dL (0.0-0.4); BILIRUBIN,TOTAL 0.3 mg/dL (0.2-1.3); BLOOD UREA NITROGEN 7 mg/dL (7-20); CALCIUM 8.9 mg/dL (8.4-10.2); CARBON DIOXIDE 27 mmol/L (22-30); CHLORIDE 108 mmol/L (98-107); GLUCOSE 86 mg/dL (75-110); PHOSPHORUS 3.1 mg/dL (2.5-4.5); POTASSIUM 3.6 mmol/L (3.6-5.0); SODIUM 141.6 mmol/L (137-145); TOTAL PROTEIN 4.9 g/dL (6.3-8.2)
[2017-09-04 07:02] LABS: PREALBUMIN 12.6 mg/dL (17.6-36.0)
[2017-09-04 07:26] LABS: INTERNATIONAL RATION (INR) 1.14; PROTHROMBIN TIME 15.1 SEC (11.4-15.4)
[2017-09-04] MEDS: MAGNESIUM SULFATE/D5W 1 GM/100 ML RTUPB IV SCH ×2 (08:18→09:31)
[2017-09-04] MEDS: IPRATROPIUM/ALBUTEROL 0.5-2.5 MG/3 ML AMPUL NEB SCH ×3 (08:59→19:19)
[2017-09-04] MEDS: BUDESONIDE/FORMOTEROL 160-4.5 MCG 60 PUFF/6 GM MDI IH SCH ×2 (09:31→21:29)
[2017-09-04] MEDS: ENOXAPARIN SODIUM INJ 80 MG/0.8 ML DISP.SYRIN SUBCUT SCH ×2 (09:31→21:29)
[2017-09-04] MEDS: FAT EMULSIONS 250 ML IV SCH (09:31)
--- NOTE | 2017-09-04 10:48 | PDOC PROGRESS REPORT ---
Subjective Progress Note for:: 09/04/17 Reason For Visit: COPD,EXACERBATION She is still having abdominal distention, tube feeds at 5 cc an hour. Physical Exam Vital Signs: Temp Pulse Resp BP Pulse Ox 98.7 F 78 16 144/93 H 95 09/04/17 07:43 09/04/17 08:59 09/04/17 08:59 09/04/17 07:43 09/04/17 08:59 Intake & Output 09/03/17 09/04/17 09/05/17 06:59 06:59 06:59 Intake Total 2339 2750 Output Total 2353 900 Balance -14 1850 Weight 74.1 kg 73.2 kg General appearance: PRESENT: no acute distress GI/Abdominal exam: PRESENT: other - Abdomen distended minimally tympanitic no peritoneal signs or rigidity Results Laboratory Results: 09/04/17 05:00 09/04/17 05:00 09/04/17 09/04/17 09/04/17 05:00 05:00 06:05 WBC 4.6 RBC 3.62 L Hgb 10.5 L Hct 31.6 L MCV 87 MCH 28.9 MCHC 33.1 RDW 15.3 H Plt Count 211 Sodium 141.6 Potassium 3.6 Chloride 108 H Carbon Dioxide 27 Anion Gap 7 BUN 7 Creatinine 0.80 Est GFR ( Amer) > 60 Est GFR (Non-Af Amer) > 60 Glucose 86 Calcium 8.9 Phosphorus 3.1 Magnesium 1.7 Total Bilirubin 0.3 AST 13 L ALT 36 Alkaline Phosphatase 35 L Total Protein 4.9 L Albumin 2.5 L Prealbumin 12.6 L Urine Color RED Urine Appearance CLOUDY Urine pH 6.0 Ur Specific [place] 1.014 Urine Protein NEGATIVE Urine Glucose (UA) NEGATIVE Urine Ketones NEGATIVE Urine Blood MODERATE H Urine Nitrite POSITIVE H Ur Leukocyte Esterase LARGE H Urine WBC (Auto) 164 Urine RBC (Auto) 74 08/29/17 17:24 Blood Blood Culture - Final NO GROWTH IN 5 DAYS 08/29/17 17:12 Blood Blood Culture - Final Staphylococcus Epidermidis 08/25/17 07:01 NT-Pro-B Natriuret Pep 796 Impressions: Acute Abdomen Series 08/26/17 00:00 IMPRESSION: Gaseous distention of the colon small bowel. Low colonic obstruction in the differential. Chest X-Ray 08/26/17 00:00 IMPRESSION: No acute cardiopulmonary findings. Abdomen/Pelvis CT 08/31/17 14:14 IMPRESSION: MODERATE FLUID AND GAS DISTENDED SMALL AND LARGE BOWEL LOOPS SUGGESTIVE OF ENTERITIS OR ILEUS. NO OBSTRUCTION OR INFLAMMATORY CHANGE IDENTIFIED. SMALL BILATERAL PLEURAL EFFUSIONS. PERCUTANEOUS GASTROSTOMY TUBE. Barium Enema 09/01/17 00:00 IMPRESSION: No distal colon obstruction. Bowel gas pattern compatible with ileus KUB X-Ray 09/03/17 06:00 IMPRESSION: NO CHANGE. PROBABLE GENERALIZED ILEUS. Assessment & Plan - Diagnosis (1) Colonic inertia Is this a current diagnosis for this admission?: Yes Plan: Impression: [place] syndrome or colonic inertia, or institutional bowel; no radiographic evidence of mechanical bowel obstruction Recommendations: 1. No indication for surgical intervention; patient does not have a volvulus; 2. Management consists of correcting metabolic abnormalities, may consider intravenous metoclopramide; physostigmine is another option but requires cardiac monitoring and I would hold off on this right now. 3. I did speak with primary care provider. Surgery will fade off of the case; reconsult if needed
[2017-09-04] MEDS: METOCLOPRAMIDE HCL INJ/PF 10 MG/2 ML SDV IV SCH ×3 (12:59→23:31)
--- NOTE | 2017-09-04 14:20 | PDOC PROGRESS REPORT ---
Subjective Progress Note for:: 09/04/17 Subjective:: 72 yr old gentleman with aphasia and L hemiparesis from prior CVA, resides in a SNF, is bed bound. He has been on Xarelto for recurrent strokes. He has a PEG tube and a chronic pickard. The patient developed recurrent small bowel and colon distension with recurrence despite enema and bowel rest. No obstruction seen on barium enema. TPN was started on 09/02/17. Tube feeds were restarted on 09/03 at a very low rate but he did not tolerate them IV Reglan was started per Dr. Nguyen, he also recommended perhaps trying Physostigmine. I called his sister and healthcare RONY Fernando ([phone]) and gave her an update of his condition, explaining to her that we may have to consider comfort care measures only down the line if there is no significant improvement and he is unable to tolerate enteral nutrition. He had pseudomonas in his urine culture from the Pickard which I think is a colonizer. Zosyn was stopped. GPC in blood cultures- coag negative Staph, most likely a skin contaminant. Reason For Visit: COPD,EXACERBATION Physical Exam Vital Signs: Temp Pulse Resp BP Pulse Ox 98.4 F 83 16 133/83 H 100 09/04/17 11:37 09/04/17 13:40 09/04/17 13:40 09/04/17 11:37 09/04/17 13:40 Intake & Output 09/03/17 09/04/17 09/05/17 06:59 06:59 06:59 Intake Total 2339 2750 Output Total 2353 900 Balance -14 1850 Weight 74.1 kg 73.2 kg General appearance: PRESENT: no acute distress Head exam: PRESENT: normocephalic Eye exam: ABSENT: scleral icterus Ear exam: PRESENT: normal external ear exam Mouth exam: PRESENT: moist Neck exam: ABSENT: tracheal deviation Respiratory exam: PRESENT: symmetrical, unlabored. ABSENT: crackles Cardiovascular exam: PRESENT: RRR GI/Abdominal exam: PRESENT: diminished bowel sounds, distended, other - PEG present Rectal exam: PRESENT: deferred Gentrourinary exam: PRESENT: indwelling catheter Extremities exam: ABSENT: pedal edema Neurological exam: PRESENT: alert, awake, aphasic Psychiatric exam: PRESENT: appropriate affect Results Laboratory Results: 09/04/17 05:00 09/04/17 05:00 09/04/17 09/04/17 09/04/17 05:00 05:00 06:05 WBC 4.6 RBC 3.62 L Hgb 10.5 L Hct 31.6 L MCV 87 MCH 28.9 MCHC 33.1 RDW 15.3 H Plt Count 211 Sodium 141.6 Potassium 3.6 Chloride 108 H Carbon Dioxide 27 Anion Gap 7 BUN 7 Creatinine 0.80 Est GFR ( Amer) > 60 Est GFR (Non-Af Amer) > 60 Glucose 86 Calcium 8.9 Phosphorus 3.1 Magnesium 1.7 Total Bilirubin 0.3 AST 13 L ALT 36 Alkaline Phosphatase 35 L Total Protein 4.9 L Albumin 2.5 L Prealbumin 12.6 L Urine Color RED Urine Appearance CLOUDY Urine pH 6.0 Ur Specific [place] 1.014 Urine Protein NEGATIVE Urine Glucose (UA) NEGATIVE Urine Ketones NEGATIVE Urine Blood MODERATE H Urine Nitrite POSITIVE H Ur Leukocyte Esterase LARGE H Urine WBC (Auto) 164 Urine RBC (Auto) 74 08/29/17 17:24 Blood Blood Culture - Final NO GROWTH IN 5 DAYS 08/29/17 17:12 Blood Blood Culture - Final Staphylococcus Epidermidis 08/25/17 07:01 NT-Pro-B Natriuret Pep 796 Impressions: Acute Abdomen Series 08/26/17 00:00 IMPRESSION: Gaseous distention of the colon small bowel. Low colonic obstruction in the differential. Chest X-Ray 08/26/17 00:00 IMPRESSION: No acute cardiopulmonary findings. Abdomen/Pelvis CT 08/31/17 14:14 IMPRESSION: MODERATE FLUID AND GAS DISTENDED SMALL AND LARGE BOWEL LOOPS SUGGESTIVE OF ENTERITIS OR ILEUS. NO OBSTRUCTION OR INFLAMMATORY CHANGE IDENTIFIED. SMALL BILATERAL PLEURAL EFFUSIONS. PERCUTANEOUS GASTROSTOMY TUBE. Barium Enema 09/01/17 00:00 IMPRESSION: No distal colon obstruction. Bowel gas pattern compatible with ileus KUB X-Ray 09/03/17 06:00 IMPRESSION: NO CHANGE. PROBABLE GENERALIZED ILEUS. Assessment & Plan - Diagnosis (1) History of CVA with residual deficit Is this a current diagnosis for this admission?: Yes Plan: At baseline Continue outpatient meds as tolerated, fall precautions (2) Chronic indwelling Pickard catheter Is this a current diagnosis for this admission?: Yes Plan: Changed by his urologist on 08/21/17. Will change Pickard catheter and recheck urine culture through the new catheter. (3) BPH (benign prostatic hyperplasia) Is this a current diagnosis for this admission?: Yes Plan: Resume outpatient medications once ileus resolved. (4) Dysphagia Is this a current diagnosis for this admission?: Yes Plan: PEG tube present, unable to tolerate tube feeds. PEG tube to gravity. Start Reglan IV. (5) Chronic anticoagulation Is this a current diagnosis for this admission?: Yes Plan: For recurrent CVA, on Lovenox. (6) Constipation Qualifiers: Constipation type: chronic idiopathic constipation Qualified Code(s): K59.04 - Chronic idiopathic constipation Is this a current diagnosis for this admission?: Yes Plan: Lactulose BID (7) Schizoaffective disorder Qualifiers: Schizoaffective disorder type: unspecified Qualified Code(s): F25.9 - Schizoaffective disorder, unspecified Is this a current diagnosis for this admission?: Yes Plan: Resume outpatient meds once Ileus resolved. (8) COPD exacerbation Is this a current diagnosis for this admission?: Yes Plan: Resolved. Continue Nebs and supplemental oxygen (9) Expressive aphasia Is this a current diagnosis for this admission?: Yes Plan: Stable, at baseline (10) Coronary artery disease Qualifiers: Coronary Disease-Associated Artery/Lesion type: unspecified vessel or lesion type [place] vs. transplanted heart: unspecified whether [place] or transplanted heart Associated angina: without angina Qualified Code(s): I25.10 - Atherosclerotic heart disease of [place] coronary artery without angina pectoris Is this a current diagnosis for this admission?: Yes Plan: Resume outpatient meds once Ileus resolved. (11) Ileus Is this a current diagnosis for this admission?: Yes Plan: Surgery input appreciated. No evidence of obstruction. Continue TPN. Replete electrolytes PEG to gravity (12) Hypophosphatemia Is this a current diagnosis for this admission?: Yes Plan: Replete (13) Hypokalemia Is this a current diagnosis for this admission?: Yes Plan: Replete - Time Time Spent with patient: 35 or more minutes
[2017-09-04 19:17] LABS: APPEARANCE,URINE SLIGHTLY-CLOUDY; BILIRUBIN,URINE NEGATIVE (NEGATIVE); COLOR,URINE YELLOW; GLUCOSE, URINE NEGATIVE (NEGATIVE); KETONES,URINE NEGATIVE (NEGATIVE); LEUKOCYTE ESTERASE,URINE LARGE (NEGATIVE); NITRITE,URINE NEGATIVE (NEGATIVE); PROTEIN,URINE NEGATIVE (NEGATIVE); URINE SPECIFIC GRAVITY 1.008; UROBILINOGEN,URINE NEGATIVE mg/dL (<2.0)
[2017-09-04] MEDS: AMINO ACIDS 5%/D25W 1,000 ML IV PRN (23:31)
[2017-09-05] MEDS: METOCLOPRAMIDE HCL INJ/PF 10 MG/2 ML SDV IV SCH ×4 (05:26→23:48)
[2017-09-05 06:42] LABS: ALANINE AMINOTRANSFERASE 33 U/L (21-72); ALBUMIN 2.8 g/dL (3.5-5.0); ALKALINE PHOSPHATASE 36 U/L (38-126); ANION GAP 10 (5-19); ASPARTATE AMINO TRANSFERASE 14 U/L (17-59); BILIRUBIN,DIRECT 0.2 mg/dL (0.0-0.4); BILIRUBIN,TOTAL 0.2 mg/dL (0.2-1.3); BLOOD UREA NITROGEN 9 mg/dL (7-20); CARBON DIOXIDE 28 mmol/L (22-30); CHLORIDE 105 mmol/L (98-107); GLUCOSE 102 mg/dL (75-110); PHOSPHORUS 2.2 mg/dL (2.5-4.5); POTASSIUM 3.6 mmol/L (3.6-5.0); SODIUM 142.8 mmol/L (137-145); TOTAL PROTEIN 5.2 g/dL (6.3-8.2)
[2017-09-05 06:49] LABS: PREALBUMIN 14.4 mg/dL (17.6-36.0)
[2017-09-05] MEDS: IPRATROPIUM/ALBUTEROL 0.5-2.5 MG/3 ML AMPUL NEB SCH ×3 (08:49→20:05)
[2017-09-05] MEDS: ENOXAPARIN SODIUM INJ 80 MG/0.8 ML DISP.SYRIN SUBCUT SCH ×2 (09:57→23:48)
[2017-09-05] MEDS: BUDESONIDE/FORMOTEROL 160-4.5 MCG 60 PUFF/6 GM MDI IH SCH ×2 (09:57→23:48)
--- NOTE | 2017-09-05 13:12 | PDOC PROGRESS REPORT ---
Subjective Progress Note for:: 09/05/17 Subjective:: 72 yr old gentleman with aphasia and L hemiparesis from prior CVA, resides in a SNF, is bed bound. He has been on Xarelto for recurrent strokes. He has a PEG tube and a chronic pickard. The patient developed recurrent small bowel and colon distension with recurrence despite enema and bowel rest. No obstruction seen on barium enema. TPN was started on 09/02/17. Tube feeds were restarted on 09/03 at a very low rate but he did not tolerate them IV Reglan was started per Dr. Nguyen, he also recommended perhaps trying Physostigmine. I called his sister and healthcare RONY Fernando ([phone]) on 09/04/17 and gave her an update of his condition, explaining to her that we may have to consider comfort care measures only down the line if there is no significant improvement and he is unable to tolerate enteral nutrition. He had pseudomonas in his urine culture from the Pickard which I think is a colonizer. Zosyn was stopped. GPC in blood cultures- coag negative Staph, most likely a skin contaminant. ID input requested since we plan to replace the central line with a PICC. Reason For Visit: COPD,EXACERBATION Physical Exam Vital Signs: Temp Pulse Resp BP Pulse Ox 98.4 F 82 16 147/91 H 98 09/05/17 07:37 09/05/17 08:49 09/05/17 08:49 09/05/17 07:37 09/05/17 08:49 Intake & Output 09/04/17 09/05/17 09/06/17 06:59 06:59 06:59 Intake Total 2750 1905 Output Total 900 900 Balance 1850 1005 Weight 73.2 kg 74.7 kg General appearance: PRESENT: no acute distress Head exam: PRESENT: normocephalic Neck exam: PRESENT: other - R IJ triple lumen Respiratory exam: PRESENT: symmetrical, unlabored. ABSENT: accessory muscle use , rhonchi Cardiovascular exam: PRESENT: RRR GI/Abdominal exam: PRESENT: distended, hypoactive bowel sounds, tenderness, other - PEG to gravity Rectal exam: PRESENT: deferred Extremities exam: ABSENT: pedal edema Neurological exam: PRESENT: alert, awake, aphasic Psychiatric exam: PRESENT: appropriate affect Results Laboratory Results: 09/04/17 05:00 09/05/17 05:10 09/04/17 09/04/17 09/05/17 17:19 18:39 05:10 Sodium Cancelled Potassium Cancelled Chloride Cancelled Carbon Dioxide Cancelled Anion Gap Cancelled BUN Cancelled Creatinine Cancelled Est GFR ( Amer) Cancelled Est GFR (Non-Af Amer) Cancelled Glucose Cancelled Calcium Cancelled Phosphorus Total Bilirubin AST ALT Alkaline Phosphatase Total Protein Albumin Prealbumin Triglycerides 71 Urine Color YELLOW Urine Appearance SLIGHTLY-CLOUDY Urine pH 7.0 Ur Specific [place] 1.008 Urine Protein NEGATIVE Urine Glucose (UA) NEGATIVE Urine Ketones NEGATIVE Urine Blood SMALL H Urine Nitrite NEGATIVE Ur Leukocyte Esterase LARGE H Urine WBC (Auto) 32 Urine RBC (Auto) 6 Stool Occult Blood 09/05/17 09/05/17 05:10 12:17 Sodium 142.8 Potassium 3.6 Chloride 105 Carbon Dioxide 28 Anion Gap 10 BUN 9 Creatinine 0.76 Est GFR ( Amer) > 60 Est GFR (Non-Af Amer) > 60 Glucose 102 Calcium 9.0 Phosphorus 2.2 L Total Bilirubin 0.2 AST 14 L ALT 33 Alkaline Phosphatase 36 L Total Protein 5.2 L Albumin 2.8 L Prealbumin 14.4 L Triglycerides Urine Color Urine Appearance Urine pH Ur Specific [place] Urine Protein Urine Glucose (UA) Urine Ketones Urine Blood Urine Nitrite Ur Leukocyte Esterase Urine WBC (Auto) Urine RBC (Auto) Stool Occult Blood NEGATIVE 08/25/17 07:01 NT-Pro-B Natriuret Pep 796 Impressions: Acute Abdomen Series 08/26/17 00:00 IMPRESSION: Gaseous distention of the colon small bowel. Low colonic obstruction in the differential. Chest X-Ray 08/26/17 00:00 IMPRESSION: No acute cardiopulmonary findings. Abdomen/Pelvis CT 08/31/17 14:14 IMPRESSION: MODERATE FLUID AND GAS DISTENDED SMALL AND LARGE BOWEL LOOPS SUGGESTIVE OF ENTERITIS OR ILEUS. NO OBSTRUCTION OR INFLAMMATORY CHANGE IDENTIFIED. SMALL BILATERAL PLEURAL EFFUSIONS. PERCUTANEOUS GASTROSTOMY TUBE. Barium Enema 09/01/17 00:00 IMPRESSION: No distal colon obstruction. Bowel gas pattern compatible with ileus KUB X-Ray 09/03/17 06:00 IMPRESSION: NO CHANGE. PROBABLE GENERALIZED ILEUS. Assessment & Plan - Diagnosis (1) History of CVA with residual deficit Is this a current diagnosis for this admission?: Yes Plan: At baseline Continue outpatient meds as tolerated, fall precautions (2) Chronic indwelling Pickard catheter Is this a current diagnosis for this admission?: Yes Plan: Changed by his urologist on 08/21/17. Changed Pickard catheter on 09/04/17 and recheck urine culture through the new catheter. (3) BPH (benign prostatic hyperplasia) Is this a current diagnosis for this admission?: Yes Plan: Resume outpatient medications once ileus resolved. (4) Dysphagia Is this a current diagnosis for this admission?: Yes Plan: PEG tube present, unable to tolerate tube feeds. PEG tube to gravity. Start Reglan IV. (5) Chronic anticoagulation Is this a current diagnosis for this admission?: Yes Plan: For recurrent CVA, on Lovenox. (6) Constipation Qualifiers: Constipation type: chronic idiopathic constipation Qualified Code(s): K59.04 - Chronic idiopathic constipation Is this a current diagnosis for this admission?: Yes Plan: Lactulose BID (7) Schizoaffective disorder Qualifiers: Schizoaffective disorder type: unspecified Qualified Code(s): F25.9 - Schizoaffective disorder, unspecified Is this a current diagnosis for this admission?: Yes Plan: Resume outpatient meds once Ileus resolved. (8) COPD exacerbation Is this a current diagnosis for this admission?: Yes Plan: Resolved. Continue Nebs and supplemental oxygen (9) Expressive aphasia Is this a current diagnosis for this admission?: Yes Plan: Stable, at baseline (10) Coronary artery disease Qualifiers: Coronary Disease-Associated Artery/Lesion type: unspecified vessel or lesion type [place] vs. transplanted heart: unspecified whether [place] or transplanted heart Associated angina: without angina Qualified Code(s): I25.10 - Atherosclerotic heart disease of [place] coronary artery without angina pectoris Is this a current diagnosis for this admission?: Yes Plan: Resume outpatient meds once Ileus resolved. (11) Ileus Is this a current diagnosis for this admission?: Yes Plan: Surgery input appreciated. No evidence of obstruction. Continue TPN. Replete electrolytes PEG to gravity (12) Hypophosphatemia Is this a current diagnosis for this admission?: Yes Plan: Replete (13) Hypokalemia Is this a current diagnosis for this admission?: Yes Plan: Replete - Time Time Spent with patient: 35 or more minutes
--- NOTE | 2017-09-05 15:11 | Progress Note ---
Provider Note Provider Note: ID Consult Note Asked to review patient's chart by Dr. Loo. Pt not seen or examined. Reviewed VS, provider reports, labs. Mr. Jenkins is a 72 year old bed-bound man who was admitted from his SNF on 08/24 with diagnosis of COPD exacerbation. His PMH includes CVA with residual L hemiparesis s/p PEG tube for dysphagia. Pt also has BPH and a chronic indwelling Pickard catheter. He had no fever. His initial WBC count was normal. He had blood cultures on admission that grew Micrococcus species and Corynebacterium species in 1 set. There was no BCx growth from the other set. His initial UCx showed no growth. During his hospitalization, he developed abdominal pain and distention. He had no fever or leukocytosis. He had repeat BCx on 08/29 that grew Coagulase Negative Staph species in 1 set and nothing from the other set. UCx sent on 08/30 grew Pseudomonas aeruginosa. Imaging studies were read as consistent with ileus. Surgery was consulted. Pt has been managed for diagnosis of [place] syndrome or colonic inertia with promotility agents, bowel rest. During the patient's hospitalization he initially received a dose of Rocephin in the ED and vancomycin from 08/26-08/28 and Zosyn from 09/01 to 09/04. Zosyn was discontinued on the suspicion that the growth of Pseudomonas species from UCx on 08/30 represents colonization. ID input was requested from Dr. Loo given the blood culture results and from Pharmacy with regard to this and the UCx result. Impression/Recommendations Central line colonization with coagulase negative Staph species - Diagnosis of central line related bacteremia would require growth of the same organism from the catheter and from the peripheral stick, which is not the case here. BCx from 08/29 drawn from the line (presumably the patient's R IJ) grew CoNS while the peripheral blood culture remained negative. The finding of CoNS from the blood culture drawn off the line indicates either contamination of the blood culture or lumenal colonization with CoNS. - Per provider reports, R IJ is planning to be removed and PICC placed. Removal of R IJ would eliminate potential source of a future bacteremia if R IJ is indeed colonized with CoNS. Pt has no blood growth from the peripheral stick to evidence true bacteremia or no systemic signs that would cause hesitation in placing fci access with PICC if needed. Urinary colonization with Pseudomonas - agree, with assessment this is most likely colonization. Asymptomatic bacteriuria is not infrequent in institutionalized adults, the elderly, and particularly those with indwelling Pickard catheters. In patients with chronic indwelling urinary catheter, rate of asymptomatic bacteriuria has been reported to be even as high as 100%. Pt has no fever, no leukocytosis and an alternate explanation for abdominal distention and pain. - No antimicrobial therapy indicated Blood culture contamination with skin timbo - Pt has had blood cultures on 08/24 with 1 set showing growth of Micrococcus and Corynebacterium species, which are low virulence organisms found on the skin , and most consistent with contamination and do not need further intervention or workup Kevin Pelaez MD [facility] pager [phone]
[2017-09-05] MEDS: AMINO ACIDS 5%/D25W 1,000 ML IV PRN (18:36)
[2017-09-06] MEDS: METOCLOPRAMIDE HCL INJ/PF 10 MG/2 ML SDV IV SCH ×3 (06:08→17:29)
[2017-09-06 06:33] LABS: HEMATOCRIT 35.5 % (37.9-51.0); HEMOGLOBIN 11.5 g/dL (13.5-17.0); MEAN CORPUSCULAR HEMOGLOBIN 28.5 pg (27.0-33.4); MEAN CORPUSCULAR HGB CONC 32.3 g/dL (32.0-36.0); MEAN CORPUSCULAR VOLUME 88 fl (80-97); PLATELET COUNT 194 10^3/uL (150-450); RED BLOOD COUNT 4.02 10^6/uL (4.35-5.55); RED CELL DISTRIBUTION WIDTH 15.3 % (11.5-14.0); WHITE BLOOD COUNT 4.6 10^3/uL (4.0-10.5)
[2017-09-06 06:38] LABS: APPEARANCE,URINE SLIGHTLY-CLOUDY; BILIRUBIN,URINE NEGATIVE (NEGATIVE); COLOR,URINE YELLOW; GLUCOSE, URINE NEGATIVE (NEGATIVE); KETONES,URINE NEGATIVE (NEGATIVE); LEUKOCYTE ESTERASE,URINE LARGE (NEGATIVE); NITRITE,URINE NEGATIVE (NEGATIVE); PROTEIN,URINE NEGATIVE (NEGATIVE); URINE SPECIFIC GRAVITY 1.017; UROBILINOGEN,URINE NEGATIVE mg/dL (<2.0)
[2017-09-06 06:46] LABS: ANION GAP 8 (5-19); BLOOD UREA NITROGEN 14 mg/dL (7-20); CALCIUM 9.4 mg/dL (8.4-10.2); CARBON DIOXIDE 24 mmol/L (22-30); CHLORIDE 109 mmol/L (98-107); GLUCOSE 102 mg/dL (75-110); POTASSIUM 3.8 mmol/L (3.6-5.0); SODIUM 140.9 mmol/L (137-145)
[2017-09-06] MEDS: IPRATROPIUM/ALBUTEROL 0.5-2.5 MG/3 ML AMPUL NEB SCH ×3 (08:18→20:31)
[2017-09-06] MEDS: ENOXAPARIN SODIUM INJ 80 MG/0.8 ML DISP.SYRIN SUBCUT SCH (09:34)
[2017-09-06] MEDS: BUDESONIDE/FORMOTEROL 160-4.5 MCG 60 PUFF/6 GM MDI IH SCH (09:35)
--- NOTE | 2017-09-06 12:44 | RADIOLOGY REPORT (SQ) ---
EXAM DESCRIPTION: PICC INSERTION; U/S GUIDE FOR VASCULAR ACCESS; FLUORO/CV PLACEMENT COMPLETED DATE/TIME: 09/06/2017 12:22 pm REASON FOR STUDY: TPN COMPARISON: AP chest 08/26/2017 FLUOROSCOPY TIME: 8 seconds 1 fluoroscopic digital chest image and 1 ultrasound image saved to PACS. TECHNIQUE: Fluoroscopic and ultrasound guided PICC placement. LIMITATIONS: None. PROCEDURE: After written consent and assessment were obtained, the patient was brought into the fluo roscopy room and place supine on the table. Ultrasound evaluation of potential access sites were perf ormed. After successfully identifying a patent left basilic vein, the left arm was prepped and draped in a sterile fashion along with the ultrasound probe. The entry site was anesthetized with 1% lidoca ine. A 21 gauge 7 cm needle was advanced through the skin and into the basilic vein under live ultras ound guidance. An ultrasound image was saved to PACS confirming access site. A .018 guide wire was then inserted through the needle and into the venous system. The needle was the removed and an 11 palak de scalpel was used to make a 1cm skin incision. A 5 fr peel-away sheath was advanced over the wire and into the venous system. A measurement was then made using the existing wire and live fluoroscopic guidance. The wire was then removed and the trimmed. The PICC was advanced through the peel-away she ath and into the venous system. The peel-away sheath was removed and the catheter was adhered to the patients arm with a stat lock. The catheter was then aspirated and flushed and a sterile bandage was placed over the access site. A fluoroscopic spot image was saved to PACS confirming the catheter tip within the superior vena cava. IMPRESSION: SUCCESSFUL PLACEMENT OF A 5 FR DUAL LUMEN 40 CM PICC IN THE LEFT BASILIC VEIN. COMMENT: Patient medication list reviewed: Yes- Quality ID# [id number]:Eligible professional attests to doc umenting in the medical record they obtained, updated, or reviewed the patient's current medications. . Quality ID 145: Final reports for procedures using fluoroscopy that document radiation exposure kirsten linden, or exposure time and number of fluorographic images (if radiation exposure indices are not avail able) Quality ID #76: The patient was prepped and draped using maximum sterile barrier technique including cap, mask, sterile gown, sterile gloves, a large sterile sheet, hand hygiene, and 2% Chlorhexidine fo r cutaneous antisepsis. When ultrasound is used, sterile ultrasound techniques are followed requiring sterile gel and sterile probes. TECHNICAL DOCUMENTATION: JOB ID: [id number] [employer]- All Rights Reserved rev-09/01 Reading location - IP/workstation name: [email or web address]
[2017-09-06] MEDS: AMINO ACIDS 5%/D25W 1,000 ML IV PRN (15:42)
--- NOTE | 2017-09-06 16:18 | PDOC PROGRESS REPORT ---
Subjective Progress Note for:: 09/06/17 Subjective:: Met with the patient and his sister. He is awake and appears to understand some of what is said. Situation was discussed with his sister and questions were answered. Reason For Visit: COPD,EXACERBATION Physical Exam Vital Signs: Temp Pulse Resp BP Pulse Ox 98.2 F 97 16 140/78 H 95 09/06/17 12:00 09/06/17 13:54 09/06/17 13:54 09/06/17 12:00 09/06/17 13:54 Intake & Output 09/05/17 09/06/17 09/07/17 05:59 05:59 05:59 Intake Total 1615 1200 660 Output Total 500 1300 250 Balance 1115 -100 410 Weight 164 lb 10.965 oz 164 lb 10.965 oz General appearance: PRESENT: no acute distress, hard of hearing Respiratory exam: PRESENT: clear to auscultation eric, other - Gets choked frequently Cardiovascular exam: PRESENT: RRR GI/Abdominal exam: PRESENT: soft, other - PEG tube in place without evidence of infection Extremities exam: ABSENT: pedal edema Neurological exam: PRESENT: awake, aphasic - At least completely expressive, and probably at least partially receptive Psychiatric exam: PRESENT: appropriate affect Skin exam: PRESENT: dry, warm Results Laboratory Results: 09/06/17 06:00 09/06/17 06:00 09/06/17 09/06/17 09/06/17 06:00 06:00 06:00 WBC 4.6 RBC 4.02 L Hgb 11.5 L Hct 35.5 L MCV 88 MCH 28.5 MCHC 32.3 RDW 15.3 H Plt Count 194 Sodium 140.9 Potassium 3.8 Chloride 109 H Carbon Dioxide 24 Anion Gap 8 BUN 14 Creatinine 0.73 Est GFR ( Amer) > 60 Est GFR (Non-Af Amer) > 60 Glucose 102 Calcium 9.4 Urine Color YELLOW Urine Appearance SLIGHTLY-CLOUDY Urine pH 6.0 Ur Specific [place] 1.017 Urine Protein NEGATIVE Urine Glucose (UA) NEGATIVE Urine Ketones NEGATIVE Urine Blood NEGATIVE Urine Nitrite NEGATIVE Ur Leukocyte Esterase LARGE H Urine WBC (Auto) 30 Urine RBC (Auto) 6 09/04/17 18:39 Pickard Catheter Urine Culture - Final NO GROWTH 2 DAYS 08/25/17 07:01 NT-Pro-B Natriuret Pep 796 Impressions: Acute Abdomen Series 08/26/17 00:00 IMPRESSION: Gaseous distention of the colon small bowel. Low colonic obstruction in the differential. Chest X-Ray 08/26/17 00:00 IMPRESSION: No acute cardiopulmonary findings. Abdomen/Pelvis CT 08/31/17 14:14 IMPRESSION: MODERATE FLUID AND GAS DISTENDED SMALL AND LARGE BOWEL LOOPS SUGGESTIVE OF ENTERITIS OR ILEUS. NO OBSTRUCTION OR INFLAMMATORY CHANGE IDENTIFIED. SMALL BILATERAL PLEURAL EFFUSIONS. PERCUTANEOUS GASTROSTOMY TUBE. Barium Enema 09/01/17 00:00 IMPRESSION: No distal colon obstruction. Bowel gas pattern compatible with ileus KUB X-Ray 09/03/17 06:00 IMPRESSION: NO CHANGE. PROBABLE GENERALIZED ILEUS. Guidance Fluoroscopy 09/06/17 00:00 IMPRESSION: SUCCESSFUL PLACEMENT OF A 5 FR DUAL LUMEN 40 CM PICC IN THE LEFT BASILIC VEIN. Interventional Vascular Procedure 09/06/17 00:00 IMPRESSION: SUCCESSFUL PLACEMENT OF A 5 FR DUAL LUMEN 40 CM PICC IN THE LEFT BASILIC VEIN. PICC Line Insertion 09/06/17 00:00 IMPRESSION: SUCCESSFUL PLACEMENT OF A 5 FR DUAL LUMEN 40 CM PICC IN THE LEFT BASILIC VEIN. Assessment & Plan - Diagnosis (1) Ileus Is this a current diagnosis for this admission?: Yes Plan: He has a chronic ileus since his second stroke. Abdominal film is never normal. There is no evident obstruction by CT. I think the only strategy is to continue him on bowel rest and intermittently reintroduce tube feeds slowly until he can tolerate. 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 He has some urethral breakdown, that is been followed by urology as an outpatient. (3) Expressive aphasia Is this a current diagnosis for this admission?: Yes Plan: Complicates understanding his needs. (4) History of CVA with residual deficit Is this a current diagnosis for this admission?: Yes (5) Dysphagia Is this a current diagnosis for this admission?: Yes Plan: Speech has been working with him. He is able to tolerate a small amount of comfort feeding. (6) Schizoaffective disorder Qualifiers: Schizoaffective disorder type: unspecified Qualified Code(s): F25.9 - Schizoaffective disorder, unspecified Is this a current diagnosis for this admission?: No Plan: By history. Not on any outpatient antipsychotics.
--- NOTE | 2017-09-06 17:08 | RADIOLOGY REPORT (SQ) ---
EXAM DESCRIPTION: KUB/ABDOMEN (SINGLE VIEW) COMPLETED DATE/TIME: 09/06/2017 4:52 pm REASON FOR STUDY: F/U ileus COMPARISON: 09/03/2017 NUMBER OF VIEWS: One view. TECHNIQUE: Supine radiographic image of the abdomen acquired. LIMITATIONS: None. FINDINGS: BOWEL GAS PATTERN: A large amount of bowel gas is present, predominantly in the large jessica l. There is no significant change. CALCIFICATIONS: No suspicious calcifications. SOFT TISSUES: No gross mass or suggestion of organomegaly. HARDWARE: Gastrostomy tube is present. BONES: No acute fracture. No worrisome bone lesions. OTHER: No other significant finding. IMPRESSION: Likely persistent ileus. TECHNICAL DOCUMENTATION: JOB ID: [id number] [employer]- All Rights Reserved Reading location - IP/workstation name: [email or web address]
[2017-09-07] MEDS: METOCLOPRAMIDE HCL INJ/PF 10 MG/2 ML SDV IV SCH ×4 (00:18→17:31)
[2017-09-07] MEDS: NORMAL SALINE 10 ML SDV (SCHEDULED) IV SCH ×3 (00:19→21:45)
[2017-09-07] MEDS: BUDESONIDE/FORMOTEROL 160-4.5 MCG 60 PUFF/6 GM MDI IH SCH ×3 (00:19→21:45)
[2017-09-07] MEDS: ENOXAPARIN SODIUM INJ 80 MG/0.8 ML DISP.SYRIN SUBCUT SCH ×3 (00:19→21:45)
[2017-09-07 06:45] LABS: ALANINE AMINOTRANSFERASE 42 U/L (21-72); ALBUMIN 2.9 g/dL (3.5-5.0); ALKALINE PHOSPHATASE 41 U/L (38-126); ANION GAP 8 (5-19); ASPARTATE AMINO TRANSFERASE 18 U/L (17-59); BILIRUBIN,DIRECT 0.2 mg/dL (0.0-0.4); BILIRUBIN,TOTAL 0.2 mg/dL (0.2-1.3); BLOOD UREA NITROGEN 14 mg/dL (7-20); CALCIUM 9.7 mg/dL (8.4-10.2); CARBON DIOXIDE 25 mmol/L (22-30); CHLORIDE 109 mmol/L (98-107); GLUCOSE 110 mg/dL (75-110); PHOSPHORUS 2.5 mg/dL (2.5-4.5); TOTAL PROTEIN 5.5 g/dL (6.3-8.2)
[2017-09-07 06:54] LABS: PREALBUMIN 15.2 mg/dL (17.6-36.0)
[2017-09-07] MEDS: IPRATROPIUM/ALBUTEROL 0.5-2.5 MG/3 ML AMPUL NEB SCH ×2 (08:38→14:00)
[2017-09-07] MEDS: FAT EMULSIONS 250 ML IV SCH (10:08)
[2017-09-07] MEDS: AMINO ACIDS 5%/D25W 1,000 ML IV PRN (11:17)
[2017-09-07] MEDS ORDERED: BISACODYL 10 MG SUPP.RECT PR ONE (14:25)
--- NOTE | 2017-09-07 14:25 | PDOC PROGRESS REPORT ---
Subjective Progress Note for:: 09/07/17 Subjective:: He is cheerful. Nods his head in response to all questions. No family is present Reason For Visit: COPD,EXACERBATION Physical Exam Vital Signs: Temp Pulse Resp BP Pulse Ox 97.2 F 99 18 117/67 94 09/07/17 11:35 09/07/17 11:35 09/07/17 11:35 09/07/17 11:35 09/07/17 11:35 Intake & Output 09/06/17 09/07/17 09/08/17 05:59 05:59 05:59 Intake Total 1200 1530 660 Output Total 1300 850 450 Balance -100 680 210 Weight 164 lb 10.965 oz 164 lb 10.965 oz 164 lb 0.383 oz General appearance: PRESENT: no acute distress Respiratory exam: PRESENT: clear to auscultation eric Cardiovascular exam: PRESENT: RRR GI/Abdominal exam: PRESENT: soft Extremities exam: ABSENT: pedal edema Neurological exam: PRESENT: alert, motor sensory deficit - Left hemiparesis, aphasic. ABSENT: oriented to person Skin exam: PRESENT: warm Results Laboratory Results: 09/06/17 06:00 09/07/17 06:05 09/07/17 06:05 Sodium 142.0 Potassium 4.0 Chloride 109 H Carbon Dioxide 25 Anion Gap 8 BUN 14 Creatinine 0.80 Est GFR ( Amer) > 60 Est GFR (Non-Af Amer) > 60 Glucose 110 Calcium 9.7 Phosphorus 2.5 Total Bilirubin 0.2 AST 18 ALT 42 Alkaline Phosphatase 41 Total Protein 5.5 L Albumin 2.9 L Prealbumin 15.2 L 09/04/17 18:39 Pickard Catheter Urine Culture - Final NO GROWTH 2 DAYS 08/25/17 07:01 NT-Pro-B Natriuret Pep 796 Impressions: Acute Abdomen Series 08/26/17 00:00 IMPRESSION: Gaseous distention of the colon small bowel. Low colonic obstruction in the differential. Chest X-Ray 08/26/17 00:00 IMPRESSION: No acute cardiopulmonary findings. Abdomen/Pelvis CT 08/31/17 14:14 IMPRESSION: MODERATE FLUID AND GAS DISTENDED SMALL AND LARGE BOWEL LOOPS SUGGESTIVE OF ENTERITIS OR ILEUS. NO OBSTRUCTION OR INFLAMMATORY CHANGE IDENTIFIED. SMALL BILATERAL PLEURAL EFFUSIONS. PERCUTANEOUS GASTROSTOMY TUBE. Barium Enema 09/01/17 00:00 IMPRESSION: No distal colon obstruction. Bowel gas pattern compatible with ileus Guidance Fluoroscopy 09/06/17 00:00 IMPRESSION: SUCCESSFUL PLACEMENT OF A 5 FR DUAL LUMEN 40 CM PICC IN THE LEFT BASILIC VEIN. Interventional Vascular Procedure 09/06/17 00:00 IMPRESSION: SUCCESSFUL PLACEMENT OF A 5 FR DUAL LUMEN 40 CM PICC IN THE LEFT BASILIC VEIN. KUB X-Ray 09/06/17 00:00 IMPRESSION: Likely persistent ileus. PICC Line Insertion 09/06/17 00:00 IMPRESSION: SUCCESSFUL PLACEMENT OF A 5 FR DUAL LUMEN 40 CM PICC IN THE LEFT BASILIC VEIN. Assessment & Plan - Diagnosis (1) Ileus Is this a current diagnosis for this admission?: Yes Plan: Abdominal film yesterday showed persistent ileus. There is no evident obstruction by CT. I started very low volume tube feeds yesterday which she has tolerated. Continuing TPN until he can tolerate full dose tube feeds. 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 He has some urethral breakdown, that is been followed by urology as an outpatient. (3) Expressive aphasia Is this a current diagnosis for this admission?: Yes Plan: His sister is quite sure he understands what is said to him. I am not so sure. Complicates understanding his needs. (4) History of CVA with residual deficit Is this a current diagnosis for this admission?: Yes Plan: Left hemiparesis, dysphasia, urinary retention, aphasia, recurrent ileus. (5) Dysphagia Is this a current diagnosis for this admission?: Yes Plan: Speech has been working with him. He is able to tolerate a small amount of comfort feeding. (6) Schizoaffective disorder Qualifiers: Schizoaffective disorder type: unspecified Qualified Code(s): F25.9 - Schizoaffective disorder, unspecified Is this a current diagnosis for this admission?: No Plan: Per old charts. Not on any outpatient antipsychotics.
[2017-09-08] MEDS: METOCLOPRAMIDE HCL INJ/PF 10 MG/2 ML SDV IV SCH ×5 (00:02→23:15)
[2017-09-08] MEDS: AMINO ACIDS 5%/D25W 1,000 ML IV PRN ×2 (06:08→23:28)
[2017-09-08 06:27] LABS: HEMATOCRIT 35.7 % (37.9-51.0); HEMOGLOBIN 11.6 g/dL (13.5-17.0); MEAN CORPUSCULAR HEMOGLOBIN 28.7 pg (27.0-33.4); MEAN CORPUSCULAR HGB CONC 32.4 g/dL (32.0-36.0); MEAN CORPUSCULAR VOLUME 88 fl (80-97); PLATELET COUNT 179 10^3/uL (150-450); RED BLOOD COUNT 4.04 10^6/uL (4.35-5.55); RED CELL DISTRIBUTION WIDTH 15.1 % (11.5-14.0); WHITE BLOOD COUNT 6.2 10^3/uL (4.0-10.5)
[2017-09-08 06:55] LABS: ALBUMIN 3.1 g/dL (3.5-5.0); ANION GAP 9 (5-19); BLOOD UREA NITROGEN 15 mg/dL (7-20); CARBON DIOXIDE 25 mmol/L (22-30); CHLORIDE 110 mmol/L (98-107); GLUCOSE 93 mg/dL (75-110); PHOSPHORUS 2.9 mg/dL (2.5-4.5); POTASSIUM 3.7 mmol/L (3.6-5.0); SODIUM 144.2 mmol/L (137-145)
--- NOTE | 2017-09-08 10:39 | RADIOLOGY REPORT (SQ) ---
EXAM DESCRIPTION: KUB/ABDOMEN (SINGLE VIEW) COMPLETED DATE/TIME: 09/08/2017 9:41 am REASON FOR STUDY: F/U ileus COMPARISON: None. NUMBER OF VIEWS: One view. TECHNIQUE: Supine radiographic image of the abdomen acquired. LIMITATIONS: None. FINDINGS: BOWEL GAS PATTERN: Large amount of bowel gas in a nonobstructive pattern. Large and small bowel gas is present. Gas is present in the rectum. CALCIFICATIONS: No suspicious calcifications. SOFT TISSUES: No gross mass or suggestion of organomegaly. HARDWARE: Gastrostomy tube. BONES: No acute fracture. No worrisome bone lesions. OTHER: No other significant finding. IMPRESSION: Persistent ileus. TECHNICAL DOCUMENTATION: JOB ID: [id number] [employer]- All Rights Reserved Reading location - IP/workstation name: [email or web address]
[2017-09-08] MEDS: ENOXAPARIN SODIUM INJ 80 MG/0.8 ML DISP.SYRIN SUBCUT SCH ×2 (11:06→22:35)
[2017-09-08] MEDS: BUDESONIDE/FORMOTEROL 160-4.5 MCG 60 PUFF/6 GM MDI IH SCH ×2 (11:09→22:35)
[2017-09-08] MEDS: NORMAL SALINE 10 ML SDV (SCHEDULED) IV SCH ×2 (11:09→22:35)
--- NOTE | 2017-09-08 12:00 | PDOC PROGRESS REPORT ---
Subjective Progress Note for:: 09/08/17 Subjective:: He is cheerful. Nods his head in response to all questions. No family is present Reason For Visit: COPD,EXACERBATION Physical Exam Vital Signs: Temp Pulse Resp BP Pulse Ox 97.5 F 104 H 12 132/85 H 99 09/08/17 07:29 09/08/17 07:29 09/08/17 07:29 09/08/17 07:29 09/08/17 07:29 Intake & Output 09/07/17 09/08/17 09/09/17 05:59 05:59 05:59 Intake Total 1530 1576 92 Output Total 850 1350 525 Balance 680 226 -433 Weight 164 lb 10.965 oz 164 lb 0.383 oz 164 lb 0.383 oz General appearance: PRESENT: no acute distress Respiratory exam: PRESENT: clear to auscultation eric Cardiovascular exam: PRESENT: RRR GI/Abdominal exam: PRESENT: distended, soft, other - High-pitched bowel sounds. Tympanic.. ABSENT: tenderness Extremities exam: ABSENT: +1 edema Neurological exam: PRESENT: awake, motor sensory deficit - Left hemiplegia, aphasic Skin exam: PRESENT: warm Results Laboratory Results: 09/08/17 05:09 09/08/17 05:09 09/08/17 09/08/17 05:09 05:09 WBC 6.2 RBC 4.04 L Hgb 11.6 L Hct 35.7 L MCV 88 MCH 28.7 MCHC 32.4 RDW 15.1 H Plt Count 179 Sodium 144.2 Potassium 3.7 Chloride 110 H Carbon Dioxide 25 Anion Gap 9 BUN 15 Creatinine 0.85 Est GFR ( Amer) > 60 Est GFR (Non-Af Amer) > 60 Glucose 93 Calcium 10.0 Phosphorus 2.9 Magnesium 1.9 Albumin 3.1 L 08/25/17 07:01 NT-Pro-B Natriuret Pep 796 Impressions: Acute Abdomen Series 08/26/17 00:00 IMPRESSION: Gaseous distention of the colon small bowel. Low colonic obstruction in the differential. Chest X-Ray 08/26/17 00:00 IMPRESSION: No acute cardiopulmonary findings. Abdomen/Pelvis CT 08/31/17 14:14 IMPRESSION: MODERATE FLUID AND GAS DISTENDED SMALL AND LARGE BOWEL LOOPS SUGGESTIVE OF ENTERITIS OR ILEUS. NO OBSTRUCTION OR INFLAMMATORY CHANGE IDENTIFIED. SMALL BILATERAL PLEURAL EFFUSIONS. PERCUTANEOUS GASTROSTOMY TUBE. Barium Enema 09/01/17 00:00 IMPRESSION: No distal colon obstruction. Bowel gas pattern compatible with ileus Guidance Fluoroscopy 09/06/17 00:00 IMPRESSION: SUCCESSFUL PLACEMENT OF A 5 FR DUAL LUMEN 40 CM PICC IN THE LEFT BASILIC VEIN. Interventional Vascular Procedure 09/06/17 00:00 IMPRESSION: SUCCESSFUL PLACEMENT OF A 5 FR DUAL LUMEN 40 CM PICC IN THE LEFT BASILIC VEIN. PICC Line Insertion 09/06/17 00:00 IMPRESSION: SUCCESSFUL PLACEMENT OF A 5 FR DUAL LUMEN 40 CM PICC IN THE LEFT BASILIC VEIN. KUB X-Ray 09/08/17 00:00 IMPRESSION: Persistent ileus. Assessment & Plan - Diagnosis (1) Ileus Is this a current diagnosis for this admission?: Yes Plan: Abdominal film this morning showed persistent ileus. There is no evident obstruction by CT. Low volume tube feeds running in an attempt to stimulate his gut which he has tolerated. Continuing TPN until he can tolerate full dose tube feeds. 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 He has some urethral breakdown, that is been followed by urology as an outpatient. (3) Expressive aphasia Is this a current diagnosis for this admission?: Yes Plan: His sister is quite sure he understands what is said to him. I am not so sure. Complicates understanding his needs. (4) History of CVA with residual deficit Is this a current diagnosis for this admission?: Yes Plan: Left hemiparesis, dysphasia, urinary retention, aphasia, recurrent ileus. (5) Dysphagia Is this a current diagnosis for this admission?: Yes Plan: Speech has been working with him. He is able to tolerate a small amount of comfort feeding. (6) Schizoaffective disorder Qualifiers: Schizoaffective disorder type: unspecified Qualified Code(s): F25.9 - Schizoaffective disorder, unspecified Is this a current diagnosis for this admission?: No Plan: Per old charts. Not on any outpatient antipsychotics.
[2017-09-08 14:50] LABS: APPEARANCE,URINE CLOUDY; BILIRUBIN,URINE NEGATIVE (NEGATIVE); COLOR,URINE YELLOW; GLUCOSE, URINE NEGATIVE (NEGATIVE); KETONES,URINE NEGATIVE (NEGATIVE); LEUKOCYTE ESTERASE,URINE LARGE (NEGATIVE); NITRITE,URINE POSITIVE (NEGATIVE); PROTEIN,URINE NEGATIVE (NEGATIVE); URINE SPECIFIC GRAVITY 1.011; UROBILINOGEN,URINE NEGATIVE mg/dL (<2.0)
[2017-09-09] MEDS: METOCLOPRAMIDE HCL INJ/PF 10 MG/2 ML SDV IV SCH ×3 (05:49→18:44)
[2017-09-09 06:49] LABS: ALANINE AMINOTRANSFERASE 35 U/L (21-72); ALBUMIN 2.8 g/dL (3.5-5.0); ALKALINE PHOSPHATASE 43 U/L (38-126); ANION GAP 9 (5-19); ASPARTATE AMINO TRANSFERASE 11 U/L (17-59); BLOOD UREA NITROGEN 15 mg/dL (7-20); CALCIUM 9.5 mg/dL (8.4-10.2); CARBON DIOXIDE 25 mmol/L (22-30); CHLORIDE 110 mmol/L (98-107); GLUCOSE 95 mg/dL (75-110); PHOSPHORUS 2.7 mg/dL (2.5-4.5); POTASSIUM 3.7 mmol/L (3.6-5.0); SODIUM 143.6 mmol/L (137-145); TOTAL PROTEIN 5.3 g/dL (6.3-8.2)
[2017-09-09 06:56] LABS: BILIRUBIN,TOTAL < 0.1 mg/dL (0.2-1.3)
[2017-09-09] MEDS: ENOXAPARIN SODIUM INJ 80 MG/0.8 ML DISP.SYRIN SUBCUT SCH (10:23)
[2017-09-09] MEDS: BUDESONIDE/FORMOTEROL 160-4.5 MCG 60 PUFF/6 GM MDI IH SCH (10:24)
[2017-09-09] MEDS: NORMAL SALINE 10 ML SDV (SCHEDULED) IV SCH (10:25)
[2017-09-09] MEDS: CEFTAZIDIME PENTAHYDRATE 1 GM in DEXTROSE 5%-WATER 50 ML IV SCH ×2 (10:44→18:44)
--- NOTE | 2017-09-09 13:39 | PDOC PROGRESS REPORT ---
Subjective Progress Note for:: 09/09/17 Subjective:: He is cheerful. Nods his head in response to all questions. No family is present Reason For Visit: COPD,EXACERBATION Physical Exam Vital Signs: Temp Pulse Resp BP Pulse Ox 97.3 F 97 12 132/74 H 99 09/09/17 11:20 09/09/17 11:20 09/09/17 11:20 09/09/17 11:20 09/09/17 11:20 Intake & Output 09/08/17 09/09/17 09/10/17 05:59 05:59 05:59 Intake Total 1576 999 Output Total 1350 975 450 Balance 226 24 -450 Weight 164 lb 0.383 oz 164 lb 0.383 oz 162 lb 11.218 oz General appearance: PRESENT: no acute distress Respiratory exam: PRESENT: clear to auscultation eric Cardiovascular exam: PRESENT: RRR GI/Abdominal exam: PRESENT: hypoactive bowel sounds, soft, other - Tympanic Neurological exam: PRESENT: awake, motor sensory deficit - Left hemiplegia, aphasic Skin exam: PRESENT: warm Results Laboratory Results: 09/08/17 05:09 09/09/17 05:33 09/08/17 09/09/17 14:13 05:33 Sodium 143.6 Potassium 3.7 Chloride 110 H Carbon Dioxide 25 Anion Gap 9 BUN 15 Creatinine 0.79 Est GFR ( Amer) > 60 Est GFR (Non-Af Amer) > 60 Glucose 95 Calcium 9.5 Phosphorus 2.7 Magnesium 1.8 Total Bilirubin < 0.1 L AST 11 L ALT 35 Alkaline Phosphatase 43 Total Protein 5.3 L Albumin 2.8 L Urine Color YELLOW Urine Appearance CLOUDY Urine pH 5.0 Ur Specific [place] 1.011 Urine Protein NEGATIVE Urine Glucose (UA) NEGATIVE Urine Ketones NEGATIVE Urine Blood MODERATE H Urine Nitrite POSITIVE H Ur Leukocyte Esterase LARGE H Urine WBC (Auto) 112 Urine RBC (Auto) 12 08/25/17 07:01 NT-Pro-B Natriuret Pep 796 Impressions: Acute Abdomen Series 08/26/17 00:00 IMPRESSION: Gaseous distention of the colon small bowel. Low colonic obstruction in the differential. Chest X-Ray 08/26/17 00:00 IMPRESSION: No acute cardiopulmonary findings. Abdomen/Pelvis CT 08/31/17 14:14 IMPRESSION: MODERATE FLUID AND GAS DISTENDED SMALL AND LARGE BOWEL LOOPS SUGGESTIVE OF ENTERITIS OR ILEUS. NO OBSTRUCTION OR INFLAMMATORY CHANGE IDENTIFIED. SMALL BILATERAL PLEURAL EFFUSIONS. PERCUTANEOUS GASTROSTOMY TUBE. Barium Enema 09/01/17 00:00 IMPRESSION: No distal colon obstruction. Bowel gas pattern compatible with ileus Guidance Fluoroscopy 09/06/17 00:00 IMPRESSION: SUCCESSFUL PLACEMENT OF A 5 FR DUAL LUMEN 40 CM PICC IN THE LEFT BASILIC VEIN. Interventional Vascular Procedure 09/06/17 00:00 IMPRESSION: SUCCESSFUL PLACEMENT OF A 5 FR DUAL LUMEN 40 CM PICC IN THE LEFT BASILIC VEIN. PICC Line Insertion 09/06/17 00:00 IMPRESSION: SUCCESSFUL PLACEMENT OF A 5 FR DUAL LUMEN 40 CM PICC IN THE LEFT BASILIC VEIN. KUB X-Ray 09/08/17 00:00 IMPRESSION: Persistent ileus. Assessment & Plan - Diagnosis (1) Ileus Is this a current diagnosis for this admission?: Yes Plan: Clinically unchanged. I will recheck an abdominal film tomorrow. Continue TPN (2) UTI (urinary tract infection) Is this a current diagnosis for this admission?: Yes Plan: White count is periodic UA continues to climb. His last culture showed Pseudomonas. Unclear whether this has anything to do with his persistent ileus , however, I will start him on Fortaz. 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 He has some urethral breakdown, that is been followed by urology as an outpatient. (4) Expressive aphasia Is this a current diagnosis for this admission?: Yes Plan: His sister is quite sure he understands what is said to him. I am not so sure. Complicates understanding his needs. 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 (6) Dysphagia Is this a current diagnosis for this admission?: Yes Plan: Speech has been working with him. He is able to tolerate a small amount of comfort feeding. (7) Schizoaffective disorder Qualifiers: Schizoaffective disorder type: unspecified Qualified Code(s): F25.9 - Schizoaffective disorder, unspecified Is this a current diagnosis for this admission?: No Plan: Per old charts. Not on any outpatient antipsychotics.
[2017-09-09] MEDS ORDERED: WATER IV SCH (14:00)
[2017-09-09] MEDS ORDERED: CEFTAZIDIME PENTAHYDRATE IV SCH (14:00)
[2017-09-09] MEDS ORDERED: DEXTROSE 5% IV SCH (14:00)
[2017-09-09] MEDS: AMINO ACIDS 5%/D25W 1,000 ML IV PRN (16:58)
[2017-09-10] MEDS: CEFTAZIDIME PENTAHYDRATE 1 GM in DEXTROSE 5%-WATER 50 ML IV SCH ×3 (03:43→17:59)
[2017-09-10] MEDS: METOCLOPRAMIDE HCL INJ/PF 10 MG/2 ML SDV IV SCH ×4 (03:46→17:59)
[2017-09-10] MEDS: ENOXAPARIN SODIUM INJ 80 MG/0.8 ML DISP.SYRIN SUBCUT SCH ×3 (03:46→22:16)
[2017-09-10] MEDS: BUDESONIDE/FORMOTEROL 160-4.5 MCG 60 PUFF/6 GM MDI IH SCH ×3 (03:46→22:16)
[2017-09-10] MEDS: NORMAL SALINE 10 ML SDV (SCHEDULED) IV SCH ×3 (03:46→22:16)
[2017-09-10 07:07] LABS: ALBUMIN 2.9 g/dL (3.5-5.0); ANION GAP 8 (5-19); BLOOD UREA NITROGEN 15 mg/dL (7-20); CALCIUM 9.4 mg/dL (8.4-10.2); CARBON DIOXIDE 25 mmol/L (22-30); CHLORIDE 109 mmol/L (98-107); GLUCOSE 107 mg/dL (75-110); PHOSPHORUS 2.9 mg/dL (2.5-4.5); POTASSIUM 3.9 mmol/L (3.6-5.0); SODIUM 141.9 mmol/L (137-145)
--- NOTE | 2017-09-10 08:23 | RADIOLOGY REPORT (SQ) ---
EXAM DESCRIPTION: KUB/ABDOMEN (SINGLE VIEW) COMPLETED DATE/TIME: 09/10/2017 8:13 am REASON FOR STUDY: F/U ileus COMPARISON: 09/08/2017 NUMBER OF VIEWS: One view. TECHNIQUE: Supine radiographic image of the abdomen acquired. LIMITATIONS: None. FINDINGS: BOWEL GAS PATTERN: Gas-filled loops of mildly dilated colon. Cecum is not dilated. CALCIFICATIONS: No suspicious calcifications. SOFT TISSUES: No gross mass or suggestion of organomegaly. HARDWARE: None. BONES: No bone lesions or fracture. OTHER: Gastrostomy. Pickard catheter. IMPRESSION: Ileus. No obstruction. Reading location - IP/workstation name: [email or web address]
--- NOTE | 2017-09-10 11:38 | PDOC PROGRESS REPORT ---
Subjective Progress Note for:: 09/10/17 Subjective:: He is cheerful. Nods his head in response to all questions. No family is present Reason For Visit: COPD,EXACERBATION Physical Exam Vital Signs: Temp Pulse Resp BP Pulse Ox 97.6 F 92 16 125/84 97 09/10/17 07:33 09/10/17 08:16 09/10/17 08:16 09/10/17 07:33 09/10/17 08:16 Intake & Output 09/09/17 09/10/17 09/11/17 05:59 05:59 05:59 Intake Total 999 999 660 Output Total 975 1400 100 Balance 24 -401 560 Weight 164 lb 0.383 oz 162 lb 11.218 oz 162 lb 0.636 oz General appearance: PRESENT: no acute distress Respiratory exam: PRESENT: clear to auscultation eric Cardiovascular exam: PRESENT: RRR GI/Abdominal exam: PRESENT: distended, soft, other - Tympanic PEG tube in place. ABSENT: tenderness Extremities exam: ABSENT: pedal edema Neurological exam: PRESENT: alert, motor sensory deficit - Left hemiplegic, aphasic Psychiatric exam: PRESENT: appropriate affect Skin exam: PRESENT: dry, warm Results Laboratory Results: 09/08/17 05:09 09/10/17 05:50 09/10/17 05:50 Sodium 141.9 Potassium 3.9 Chloride 109 H Carbon Dioxide 25 Anion Gap 8 BUN 15 Creatinine 0.78 Est GFR ( Amer) > 60 Est GFR (Non-Af Amer) > 60 Glucose 107 Calcium 9.4 Phosphorus 2.9 Magnesium 1.9 Albumin 2.9 L 08/25/17 07:01 NT-Pro-B Natriuret Pep 796 Impressions: Acute Abdomen Series 08/26/17 00:00 IMPRESSION: Gaseous distention of the colon small bowel. Low colonic obstruction in the differential. Chest X-Ray 08/26/17 00:00 IMPRESSION: No acute cardiopulmonary findings. Abdomen/Pelvis CT 08/31/17 14:14 IMPRESSION: MODERATE FLUID AND GAS DISTENDED SMALL AND LARGE BOWEL LOOPS SUGGESTIVE OF ENTERITIS OR ILEUS. NO OBSTRUCTION OR INFLAMMATORY CHANGE IDENTIFIED. SMALL BILATERAL PLEURAL EFFUSIONS. PERCUTANEOUS GASTROSTOMY TUBE. Barium Enema 09/01/17 00:00 IMPRESSION: No distal colon obstruction. Bowel gas pattern compatible with ileus Guidance Fluoroscopy 09/06/17 00:00 IMPRESSION: SUCCESSFUL PLACEMENT OF A 5 FR DUAL LUMEN 40 CM PICC IN THE LEFT BASILIC VEIN. Interventional Vascular Procedure 09/06/17 00:00 IMPRESSION: SUCCESSFUL PLACEMENT OF A 5 FR DUAL LUMEN 40 CM PICC IN THE LEFT BASILIC VEIN. PICC Line Insertion 09/06/17 00:00 IMPRESSION: SUCCESSFUL PLACEMENT OF A 5 FR DUAL LUMEN 40 CM PICC IN THE LEFT BASILIC VEIN. KUB X-Ray 09/10/17 00:00 IMPRESSION: Ileus. No obstruction. 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 Usually this is been managed with bowel rest and slow introduction of tube feeds. His PEG tube was hooked to suction for the first week he was here without significant change. I tried a very low dose tube feeds to see if that would stimulate anything. It has not. I will stop the tube feeds, who came back up to suction, and consult surgery to see if they think decompressing him will help. (2) UTI (urinary tract infection) Is this a current diagnosis for this admission?: Yes Plan: White count is periodic UA continues to climb. His last culture showed Pseudomonas. Unclear whether this has anything to do with his persistent ileus , however, I will continue on Fortaz. 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 He has some urethral breakdown, that is been followed by urology as an outpatient. (4) Expressive aphasia Is this a current diagnosis for this admission?: Yes Plan: His sister is quite sure he understands what is said to him. I am not so sure. Complicates understanding his needs. 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 (6) Dysphagia Is this a current diagnosis for this admission?: Yes Plan: Speech has been working with him. He is able to tolerate a small amount of comfort feeding. (7) Schizoaffective disorder Qualifiers: Schizoaffective disorder type: unspecified Qualified Code(s): F25.9 - Schizoaffective disorder, unspecified Is this a current diagnosis for this admission?: No Plan: Per old charts. Not on any outpatient antipsychotics.
--- NOTE | 2017-09-10 15:10 | PDOC PROGRESS REPORT ---
Subjective Progress Note for:: 09/10/17 Subjective:: Abdominal pains Reason For Visit: COPD,EXACERBATION Physical Exam Vital Signs: Temp Pulse Resp BP Pulse Ox 98.3 F 102 H 22 H 130/87 H 100 09/10/17 11:59 09/10/17 11:59 09/10/17 11:59 09/10/17 11:59 09/10/17 11:59 Intake & Output 09/09/17 09/10/17 09/11/17 06:59 06:59 06:59 Intake Total 999 1659 Output Total 900 1050 Balance 99 609 Weight 73.8 kg 73.5 kg Exam: Abdomen is distended with mild diffuse tenderness Rectal exam showed no fecal impaction and no gash of air. Results Laboratory Results: 09/08/17 05:09 09/10/17 05:50 09/10/17 05:50 Sodium 141.9 Potassium 3.9 Chloride 109 H Carbon Dioxide 25 Anion Gap 8 BUN 15 Creatinine 0.78 Est GFR ( Amer) > 60 Est GFR (Non-Af Amer) > 60 Glucose 107 Calcium 9.4 Phosphorus 2.9 Magnesium 1.9 Albumin 2.9 L 08/25/17 07:01 NT-Pro-B Natriuret Pep 796 Impressions: Acute Abdomen Series 08/26/17 00:00 IMPRESSION: Gaseous distention of the colon small bowel. Low colonic obstruction in the differential. Chest X-Ray 08/26/17 00:00 IMPRESSION: No acute cardiopulmonary findings. Abdomen/Pelvis CT 08/31/17 14:14 IMPRESSION: MODERATE FLUID AND GAS DISTENDED SMALL AND LARGE BOWEL LOOPS SUGGESTIVE OF ENTERITIS OR ILEUS. NO OBSTRUCTION OR INFLAMMATORY CHANGE IDENTIFIED. SMALL BILATERAL PLEURAL EFFUSIONS. PERCUTANEOUS GASTROSTOMY TUBE. Barium Enema 09/01/17 00:00 IMPRESSION: No distal colon obstruction. Bowel gas pattern compatible with ileus Guidance Fluoroscopy 09/06/17 00:00 IMPRESSION: SUCCESSFUL PLACEMENT OF A 5 FR DUAL LUMEN 40 CM PICC IN THE LEFT BASILIC VEIN. Interventional Vascular Procedure 09/06/17 00:00 IMPRESSION: SUCCESSFUL PLACEMENT OF A 5 FR DUAL LUMEN 40 CM PICC IN THE LEFT BASILIC VEIN. PICC Line Insertion 09/06/17 00:00 IMPRESSION: SUCCESSFUL PLACEMENT OF A 5 FR DUAL LUMEN 40 CM PICC IN THE LEFT BASILIC VEIN. KUB X-Ray 09/10/17 00:00 IMPRESSION: Ileus. No obstruction. Assessment & Plan - Time Time Spent with patient: 25-34 minutes - Plan Summary Plan Summary: Has chronic ileus. His electrolytes are normal and normal wbc. His history of CVA likely having a major role. Will try decompression with rectal tube. If no improvement will consider colonic diversion. Will discuss with Dr Nguyen who is incoming field ironworker surgeon tomorrow. try to get family on board.
[2017-09-11] MEDS: METOCLOPRAMIDE HCL INJ/PF 10 MG/2 ML SDV IV SCH ×5 (00:17→22:06)
[2017-09-11] MEDS: CEFTAZIDIME PENTAHYDRATE 1 GM in DEXTROSE 5%-WATER 50 ML IV SCH ×3 (00:17→17:28)
[2017-09-11] MEDS: AMINO ACIDS 5%/D25W 1,000 ML IV PRN (06:48)
[2017-09-11 07:19] LABS: HEMATOCRIT 33.2 % (37.9-51.0); MEAN CORPUSCULAR HEMOGLOBIN 28.9 pg (27.0-33.4); MEAN CORPUSCULAR VOLUME 88 fl (80-97); PLATELET COUNT 168 10^3/uL (150-450); RED BLOOD COUNT 3.78 10^6/uL (4.35-5.55); RED CELL DISTRIBUTION WIDTH 15.2 % (11.5-14.0)
[2017-09-11 07:32] LABS: INTERNATIONAL RATION (INR) 0.97; PROTHROMBIN TIME 13.4 SEC (11.4-15.4)
[2017-09-11 07:40] LABS: ALANINE AMINOTRANSFERASE 32 U/L (21-72); ALBUMIN 3.1 g/dL (3.5-5.0); ALKALINE PHOSPHATASE 48 U/L (38-126); ANION GAP 9 (5-19); ASPARTATE AMINO TRANSFERASE 12 U/L (17-59); BILIRUBIN,DIRECT 0.2 mg/dL (0.0-0.4); BILIRUBIN,TOTAL 0.2 mg/dL (0.2-1.3); BLOOD UREA NITROGEN 16 mg/dL (7-20); CALCIUM 9.7 mg/dL (8.4-10.2); CARBON DIOXIDE 24 mmol/L (22-30); CHLORIDE 111 mmol/L (98-107); GLUCOSE 83 mg/dL (75-110); PHOSPHORUS 3.2 mg/dL (2.5-4.5); POTASSIUM 3.9 mmol/L (3.6-5.0); SODIUM 143.6 mmol/L (137-145); TOTAL PROTEIN 5.7 g/dL (6.3-8.2)
[2017-09-11 07:52] LABS: PREALBUMIN 19.9 mg/dL (17.6-36.0)
[2017-09-11 08:10] LABS: APPEARANCE,URINE SLIGHTLY-CLOUDY; BILIRUBIN,URINE NEGATIVE (NEGATIVE); COLOR,URINE YELLOW; GLUCOSE, URINE NEGATIVE (NEGATIVE); KETONES,URINE NEGATIVE (NEGATIVE); LEUKOCYTE ESTERASE,URINE MODERATE (NEGATIVE); NITRITE,URINE POSITIVE (NEGATIVE); PROTEIN,URINE NEGATIVE (NEGATIVE); URINE SPECIFIC GRAVITY 1.017; UROBILINOGEN,URINE NEGATIVE mg/dL (<2.0)
[2017-09-11] MEDS: FAT EMULSIONS 250 ML IV SCH (09:39)
--- NOTE | 2017-09-11 09:47 | PDOC PROGRESS REPORT ---
Subjective Progress Note for:: 09/11/17 Subjective:: Patient feels better, smiling, massive amount of gas and stool evacuated to rectal tube placed. Reason For Visit: COPD,EXACERBATION Physical Exam Vital Signs: Temp Pulse Resp BP Pulse Ox 98.4 F 91 16 119/76 100 09/11/17 08:00 09/11/17 08:00 09/11/17 08:00 09/11/17 08:00 09/11/17 08:00 Intake & Output 09/10/17 09/11/17 09/12/17 06:59 06:59 06:59 Intake Total 1659 1754 Output Total 1050 1275 Balance 609 479 Weight 73.5 kg 74.4 kg General appearance: PRESENT: no acute distress, other - Patient smiling GI/Abdominal exam: PRESENT: other - Abdomen not distended; soft; feeding tube clamped off. Rectal exam: PRESENT: other - Marked amount of liquid and gas stool coming through the drainage tube as well as around it. Results Laboratory Results: 09/11/17 06:45 09/11/17 06:45 09/11/17 09/11/17 09/11/17 06:40 06:40 06:45 WBC 5.0 RBC 3.78 L Hgb 11.0 L Hct 33.2 L MCV 88 MCH 28.9 MCHC 33.0 RDW 15.2 H Plt Count 168 Sodium Potassium Chloride Carbon Dioxide Anion Gap BUN Creatinine Est GFR ( Amer) Est GFR (Non-Af Amer) Glucose Calcium Phosphorus Magnesium Total Bilirubin AST ALT Alkaline Phosphatase Total Protein Albumin Prealbumin Triglycerides Urine Color YELLOW Urine Appearance SLIGHTLY-CLOUDY Urine pH 5.0 Ur Specific [place] 1.017 Urine Protein NEGATIVE Urine Glucose (UA) NEGATIVE Urine Ketones NEGATIVE Urine Blood SMALL H Urine Nitrite POSITIVE H Ur Leukocyte Esterase MODERATE H Urine WBC (Auto) 125 Urine RBC (Auto) 4 Stool Occult Blood NEGATIVE 09/11/17 09/11/17 06:45 06:45 WBC RBC Hgb Hct MCV MCH MCHC RDW Plt Count Sodium 143.6 Potassium 3.9 Chloride 111 H Carbon Dioxide 24 Anion Gap 9 BUN 16 Creatinine 0.76 Est GFR ( Amer) > 60 Est GFR (Non-Af Amer) > 60 Glucose 83 Calcium 9.7 Phosphorus 3.2 Magnesium 1.8 Total Bilirubin 0.2 AST 12 L ALT 32 Alkaline Phosphatase 48 Total Protein 5.7 L Albumin 3.1 L Prealbumin 19.9 Triglycerides 121 Urine Color Urine Appearance Urine pH Ur Specific [place] Urine Protein Urine Glucose (UA) Urine Ketones Urine Blood Urine Nitrite Ur Leukocyte Esterase Urine WBC (Auto) Urine RBC (Auto) Stool Occult Blood 08/25/17 07:01 NT-Pro-B Natriuret Pep 796 Impressions: Acute Abdomen Series 08/26/17 00:00 IMPRESSION: Gaseous distention of the colon small bowel. Low colonic obstruction in the differential. Chest X-Ray 08/26/17 00:00 IMPRESSION: No acute cardiopulmonary findings. Abdomen/Pelvis CT 08/31/17 14:14 IMPRESSION: MODERATE FLUID AND GAS DISTENDED SMALL AND LARGE BOWEL LOOPS SUGGESTIVE OF ENTERITIS OR ILEUS. NO OBSTRUCTION OR INFLAMMATORY CHANGE IDENTIFIED. SMALL BILATERAL PLEURAL EFFUSIONS. PERCUTANEOUS GASTROSTOMY TUBE. Barium Enema 09/01/17 00:00 IMPRESSION: No distal colon obstruction. Bowel gas pattern compatible with ileus Guidance Fluoroscopy 09/06/17 00:00 IMPRESSION: SUCCESSFUL PLACEMENT OF A 5 FR DUAL LUMEN 40 CM PICC IN THE LEFT BASILIC VEIN. Interventional Vascular Procedure 09/06/17 00:00 IMPRESSION: SUCCESSFUL PLACEMENT OF A 5 FR DUAL LUMEN 40 CM PICC IN THE LEFT BASILIC VEIN. PICC Line Insertion 09/06/17 00:00 IMPRESSION: SUCCESSFUL PLACEMENT OF A 5 FR DUAL LUMEN 40 CM PICC IN THE LEFT BASILIC VEIN. KUB X-Ray 09/10/17 00:00 IMPRESSION: Ileus. No obstruction. 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 According to patient's family at bedside this morning, patient was fine until a month ago prior to his most recent stroke when the patient was ambulatory. According to family, this is patient's first episode with prolonged constipation etc. Today, the patient is clinically improved and there is no indication for surgery , such as a colostomy, at this moment. I discussed colostomy mechanics thereof , and maintenance, as well as a brief summary of the operative procedure. Recommendations: 1. Continue nutritional support via TPN; continue rectal tube drainage 2. Continue to hold Xarelto. 3. I spoke with Dr. Monzon, electric motor and generator assembler, who will see patient, evaluate from a preoperative perspective, in the event the patient does not have sustained improvement and needs a diverting colostomy. 4. The above discussed with patient, and his relatives. - Time Time Spent with patient: 15-24 minutes Smoking Cessation Education: over 10 minutes
[2017-09-11] MEDS: ENOXAPARIN SODIUM INJ 80 MG/0.8 ML DISP.SYRIN SUBCUT SCH ×2 (09:57→22:01)
[2017-09-11] MEDS: BUDESONIDE/FORMOTEROL 160-4.5 MCG 60 PUFF/6 GM MDI IH SCH ×2 (09:57→22:05)
[2017-09-11] MEDS: NORMAL SALINE 10 ML SDV (SCHEDULED) IV SCH ×2 (10:09→22:05)
--- NOTE | 2017-09-11 10:13 | RADIOLOGY REPORT (SQ) ---
EXAM DESCRIPTION: ABDOMEN 2 VIEWS COMPLETED DATE/TIME: 09/11/2017 9:59 am REASON FOR STUDY: ff up of ileus COMPARISON: 09/10/2017 NUMBER OF VIEWS: Two views. TECHNIQUE: Supine and erect/decubitus radiographic images of the abdomen acquired. LIMITATIONS: None. FINDINGS: FREE AIR: None. No abnormal gas collections. LUNG BASES: Clear. BOWEL GAS PATTERN: Persistent gas-filled loops of bowel. There is less bowel gas in the colon at thi s time. CALCIFICATIONS: No suspicious calcifications. SOFT TISSUES: No gross mass or suggestion of organomegaly. HARDWARE: Gastrostomy tube. BONES: No acute fracture. No worrisome bone lesions. OTHER: No other significant finding. IMPRESSION: Persistent ileus. TECHNICAL DOCUMENTATION: JOB ID: [id number] [employer]- All Rights Reserved Reading location - IP/workstation name: [email or web address]
--- NOTE | 2017-09-11 13:31 | PDOC PROGRESS REPORT ---
Subjective Progress Note for:: 09/11/17 Subjective:: He is cheerful. Nods his head in response to all questions. Sister is present. We had a long discussion about his history and prognosis. She is contemplating comfort measures only. Reason For Visit: COPD,EXACERBATION Physical Exam Vital Signs: Temp Pulse Resp BP Pulse Ox 97.8 F 89 17 131/78 H 100 09/11/17 11:14 09/11/17 11:14 09/11/17 11:14 09/11/17 11:14 09/11/17 11:14 Intake & Output 09/10/17 09/11/17 09/12/17 05:59 05:59 05:59 Intake Total 999 1694 720 Output Total 1400 750 625 Balance -401 944 95 Weight 162 lb 11.218 oz 162 lb 0.636 oz 164 lb 0.383 oz General appearance: PRESENT: no acute distress Respiratory exam: PRESENT: clear to auscultation eric Cardiovascular exam: PRESENT: RRR GI/Abdominal exam: PRESENT: distended, soft. ABSENT: tenderness Gentrourinary exam: PRESENT: indwelling catheter Neurological exam: PRESENT: awake, motor sensory deficit - Hemiplegia, aphasic Skin exam: PRESENT: warm Results Laboratory Results: 09/11/17 06:45 09/11/17 06:45 09/11/17 09/11/17 09/11/17 06:40 06:40 06:45 WBC 5.0 RBC 3.78 L Hgb 11.0 L Hct 33.2 L MCV 88 MCH 28.9 MCHC 33.0 RDW 15.2 H Plt Count 168 Sodium Potassium Chloride Carbon Dioxide Anion Gap BUN Creatinine Est GFR ( Amer) Est GFR (Non-Af Amer) Glucose Calcium Phosphorus Magnesium Total Bilirubin AST ALT Alkaline Phosphatase Total Protein Albumin Prealbumin Triglycerides Urine Color YELLOW Urine Appearance SLIGHTLY-CLOUDY Urine pH 5.0 Ur Specific [place] 1.017 Urine Protein NEGATIVE Urine Glucose (UA) NEGATIVE Urine Ketones NEGATIVE Urine Blood SMALL H Urine Nitrite POSITIVE H Ur Leukocyte Esterase MODERATE H Urine WBC (Auto) 125 Urine RBC (Auto) 4 Stool Occult Blood NEGATIVE 09/11/17 09/11/17 06:45 06:45 WBC RBC Hgb Hct MCV MCH MCHC RDW Plt Count Sodium 143.6 Potassium 3.9 Chloride 111 H Carbon Dioxide 24 Anion Gap 9 BUN 16 Creatinine 0.76 Est GFR ( Amer) > 60 Est GFR (Non-Af Amer) > 60 Glucose 83 Calcium 9.7 Phosphorus 3.2 Magnesium 1.8 Total Bilirubin 0.2 AST 12 L ALT 32 Alkaline Phosphatase 48 Total Protein 5.7 L Albumin 3.1 L Prealbumin 19.9 Triglycerides 121 Urine Color Urine Appearance Urine pH Ur Specific [place] Urine Protein Urine Glucose (UA) Urine Ketones Urine Blood Urine Nitrite Ur Leukocyte Esterase Urine WBC (Auto) Urine RBC (Auto) Stool Occult Blood 08/25/17 07:01 NT-Pro-B Natriuret Pep 796 Impressions: Acute Abdomen Series 08/26/17 00:00 IMPRESSION: Gaseous distention of the colon small bowel. Low colonic obstruction in the differential. Chest X-Ray 08/26/17 00:00 IMPRESSION: No acute cardiopulmonary findings. Abdomen/Pelvis CT 08/31/17 14:14 IMPRESSION: MODERATE FLUID AND GAS DISTENDED SMALL AND LARGE BOWEL LOOPS SUGGESTIVE OF ENTERITIS OR ILEUS. NO OBSTRUCTION OR INFLAMMATORY CHANGE IDENTIFIED. SMALL BILATERAL PLEURAL EFFUSIONS. PERCUTANEOUS GASTROSTOMY TUBE. Barium Enema 09/01/17 00:00 IMPRESSION: No distal colon obstruction. Bowel gas pattern compatible with ileus Guidance Fluoroscopy 09/06/17 00:00 IMPRESSION: SUCCESSFUL PLACEMENT OF A 5 FR DUAL LUMEN 40 CM PICC IN THE LEFT BASILIC VEIN. Interventional Vascular Procedure 09/06/17 00:00 IMPRESSION: SUCCESSFUL PLACEMENT OF A 5 FR DUAL LUMEN 40 CM PICC IN THE LEFT BASILIC VEIN. PICC Line Insertion 09/06/17 00:00 IMPRESSION: SUCCESSFUL PLACEMENT OF A 5 FR DUAL LUMEN 40 CM PICC IN THE LEFT BASILIC VEIN. KUB X-Ray 09/10/17 00:00 IMPRESSION: Ileus. No obstruction. Abdomen X-Ray 09/11/17 07:00 IMPRESSION: Persistent ileus. Assessment & Plan - Diagnosis (1) Ho's syndrome Is this a current diagnosis for this admission?: Yes Plan: Rectal tube is been placed. There is some drainage from it. Abdominal film unchanged thus far. (2) UTI (urinary tract infection) Is this a current diagnosis for this admission?: Yes Plan: Urine WBCs continue to rise despite being on Fortaz. I will repeat a culture. 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 He has some urethral breakdown, that is been followed by urology as an outpatient. (4) Expressive aphasia Is this a current diagnosis for this admission?: Yes Plan: His sister is quite sure he understands what is said to him. I am not so sure. Complicates understanding his needs. 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 (6) Dysphagia Is this a current diagnosis for this admission?: Yes Plan: Speech has been working with him. He is able to tolerate a small amount of comfort feeding. (7) Schizoaffective disorder Qualifiers: Schizoaffective disorder type: unspecified Qualified Code(s): F25.9 - Schizoaffective disorder, unspecified Is this a current diagnosis for this admission?: No Plan: Per old charts. Not on any outpatient antipsychotics.
[2017-09-11] MEDS ORDERED: MAGNESIUM SULFATE/D5W 1 GM/100 ML RTUPB IV ONE (15:00)
--- NOTE | 2017-09-11 16:40 | EKG REPORT ---
SEVERITY:- ABNORMAL ECG - SINUS RHYTHM LEFT ANTERIOR FASCICULAR BLOCK PROBABLE ANTEROLATERAL INFARCT, OLD : Confirmed by: Frantz Dove 11-Sep-2017 16:39:32
[2017-09-12] MEDS: AMINO ACIDS 5%/D25W 1,000 ML IV PRN ×2 (00:54→17:31)
[2017-09-12] MEDS: CEFTAZIDIME PENTAHYDRATE 1 GM in DEXTROSE 5%-WATER 50 ML IV SCH ×2 (02:11→10:25)
[2017-09-12] MEDS: METOCLOPRAMIDE HCL INJ/PF 10 MG/2 ML SDV IV SCH ×3 (06:57→17:39)
--- NOTE | 2017-09-12 09:04 | RADIOLOGY REPORT (SQ) ---
EXAM DESCRIPTION: KUB/ABDOMEN (SINGLE VIEW) COMPLETED DATE/TIME: 09/12/2017 8:50 am REASON FOR STUDY: F/U ileus COMPARISON: CT abdomen pelvis 08/31/2017 Abdominal films from 08/27/2017 to 09/11/2017 Gastrografin enema 09/01/2017 NUMBER OF VIEWS: One view. TECHNIQUE: Supine radiographic image of the abdomen acquired. LIMITATIONS: None. FINDINGS: BOWEL GAS PATTERN: Air-filled distended small bowel loops in the mid abdomen are unchanged over the series exams. Colon is decompressed. Stomach decompressed with a G-tube in good positioni ng. CALCIFICATIONS: No suspicious calcifications. SOFT TISSUES: No gross mass or suggestion of organomegaly. HARDWARE: The Pickard catheter in the bladder. G-tube in the stomach. BONES: No acute fracture. No worrisome bone lesions. OTHER: No other significant finding. IMPRESSION: Persistent ileus TECHNICAL DOCUMENTATION: JOB ID: [id number] [employer]- All Rights Reserved Reading location - IP/workstation name: [email or web address]
[2017-09-12] MEDS: ENOXAPARIN SODIUM INJ 80 MG/0.8 ML DISP.SYRIN SUBCUT SCH ×2 (10:19→23:13)
[2017-09-12] MEDS: NORMAL SALINE 10 ML SDV (SCHEDULED) IV SCH ×2 (10:25→23:10)
[2017-09-12] MEDS: BUDESONIDE/FORMOTEROL 160-4.5 MCG 60 PUFF/6 GM MDI IH SCH ×2 (10:25→23:10)
--- NOTE | 2017-09-12 12:28 | PDOC PROGRESS REPORT ---
Subjective Progress Note for:: 09/12/17 Subjective:: This is a 72-year-old male with chronic constipation and a recent history of ileus. The patient is status post placement of a rectal tube/fecal management system. This appears to be working appropriately. The patient denies any abdominal pain or distention. The patient is nonverbal, but responds to yes or no questions. His family members are at the bedside and conveyed portions of the review of systems. He denies chest pain, shortness of breath, fevers, chills, nausea, vomiting. Reason For Visit: COPD,EXACERBATION Physical Exam Vital Signs: Temp Pulse Resp BP Pulse Ox 98.8 F 96 16 128/73 H 98 09/12/17 08:00 09/12/17 08:00 09/12/17 08:00 09/12/17 08:00 09/12/17 08:00 Intake & Output 09/11/17 09/12/17 09/13/17 06:59 06:59 06:59 Intake Total 1754 2014 Output Total 1275 1750 Balance 479 264 Weight 74.4 kg 73.6 kg General appearance: PRESENT: no acute distress Head exam: PRESENT: atraumatic, normocephalic Eye exam: PRESENT: PERRLA. ABSENT: scleral icterus Mouth exam: PRESENT: moist, neck supple Neck exam: ABSENT: lymphadenopathy, meningismus, tenderness, thyromegaly, tracheal deviation Respiratory exam: PRESENT: clear to auscultation eric, unlabored. ABSENT: accessory muscle use Cardiovascular exam: PRESENT: RRR Pulses: PRESENT: normal radial pulses Vascular exam: PRESENT: normal capillary refill. ABSENT: pallor GI/Abdominal exam: PRESENT: distended - Mild, normal bowel sounds, soft. ABSENT : rebound, rigid, tenderness Rectal exam: PRESENT: other - Rectal tube in place Neurological exam: PRESENT: alert, awake Psychiatric exam: ABSENT: agitated, anxious Skin exam: ABSENT: cyanosis, erythema, jaundice, pallor Results Laboratory Results: 09/11/17 06:45 09/11/17 06:45 08/25/17 07:01 NT-Pro-B Natriuret Pep 796 Impressions: Acute Abdomen Series 08/26/17 00:00 IMPRESSION: Gaseous distention of the colon small bowel. Low colonic obstruction in the differential. Chest X-Ray 08/26/17 00:00 IMPRESSION: No acute cardiopulmonary findings. Abdomen/Pelvis CT 08/31/17 14:14 IMPRESSION: MODERATE FLUID AND GAS DISTENDED SMALL AND LARGE BOWEL LOOPS SUGGESTIVE OF ENTERITIS OR ILEUS. NO OBSTRUCTION OR INFLAMMATORY CHANGE IDENTIFIED. SMALL BILATERAL PLEURAL EFFUSIONS. PERCUTANEOUS GASTROSTOMY TUBE. Barium Enema 09/01/17 00:00 IMPRESSION: No distal colon obstruction. Bowel gas pattern compatible with ileus Guidance Fluoroscopy 09/06/17 00:00 IMPRESSION: SUCCESSFUL PLACEMENT OF A 5 FR DUAL LUMEN 40 CM PICC IN THE LEFT BASILIC VEIN. Interventional Vascular Procedure 09/06/17 00:00 IMPRESSION: SUCCESSFUL PLACEMENT OF A 5 FR DUAL LUMEN 40 CM PICC IN THE LEFT BASILIC VEIN. PICC Line Insertion 09/06/17 00:00 IMPRESSION: SUCCESSFUL PLACEMENT OF A 5 FR DUAL LUMEN 40 CM PICC IN THE LEFT BASILIC VEIN. Abdomen X-Ray 09/11/17 07:00 IMPRESSION: Persistent ileus. KUB X-Ray 09/12/17 00:00 IMPRESSION: Persistent ileus Assessment & Plan - Diagnosis (1) Constipation Qualifiers: Constipation type: chronic idiopathic constipation Qualified Code(s): K59.04 - Chronic idiopathic constipation Is this a current diagnosis for this admission?: Yes (2) Abdominal distention Is this a current diagnosis for this admission?: Yes - Plan Summary Plan Summary: This is a 72-year-old male status post a CVA. He has chronic constipation and appears to have suffered a recent ileus. His rectal tube is working very well. His colon appears to be decompressed on x-ray. He still has moderate distention of his small intestine, consistent with ileus. Continue rectal tube for now. Continue stool softeners. Monitor electrolytes. Family is not ready to consent for colostomy at present. Will continue with current management for now. Will follow.
--- NOTE | 2017-09-12 15:59 | PDOC PROGRESS REPORT ---
Subjective Progress Note for:: 09/12/17 Subjective:: He is cheerful. Nods his head in response to all questions. Sister is present. She wants to continue present management, but does not want surgery. Reason For Visit: COPD,EXACERBATION Physical Exam Vital Signs: Temp Pulse Resp BP Pulse Ox 99.6 F 93 22 H 102/88 H 100 09/12/17 11:20 09/12/17 11:20 09/12/17 11:20 09/12/17 11:20 09/12/17 11:20 Intake & Output 09/11/17 09/12/17 09/13/17 05:59 05:59 05:59 Intake Total 1694 9062 720 Output Total 750 1950 425 Balance 944 64 295 Weight 162 lb 0.636 oz 162 lb 4.163 oz General appearance: PRESENT: no acute distress Respiratory exam: PRESENT: clear to auscultation eric Cardiovascular exam: PRESENT: RRR GI/Abdominal exam: PRESENT: distended, soft, other - Tympanic. ABSENT: tenderness Extremities exam: PRESENT: other - No edema Neurological exam: PRESENT: awake, motor sensory deficit - Left hemiplegia, aphasic Skin exam: PRESENT: warm Results Laboratory Results: 09/11/17 06:45 09/11/17 06:45 08/25/17 07:01 NT-Pro-B Natriuret Pep 796 Impressions: Acute Abdomen Series 08/26/17 00:00 IMPRESSION: Gaseous distention of the colon small bowel. Low colonic obstruction in the differential. Chest X-Ray 08/26/17 00:00 IMPRESSION: No acute cardiopulmonary findings. Abdomen/Pelvis CT 08/31/17 14:14 IMPRESSION: MODERATE FLUID AND GAS DISTENDED SMALL AND LARGE BOWEL LOOPS SUGGESTIVE OF ENTERITIS OR ILEUS. NO OBSTRUCTION OR INFLAMMATORY CHANGE IDENTIFIED. SMALL BILATERAL PLEURAL EFFUSIONS. PERCUTANEOUS GASTROSTOMY TUBE. Barium Enema 09/01/17 00:00 IMPRESSION: No distal colon obstruction. Bowel gas pattern compatible with ileus Guidance Fluoroscopy 09/06/17 00:00 IMPRESSION: SUCCESSFUL PLACEMENT OF A 5 FR DUAL LUMEN 40 CM PICC IN THE LEFT BASILIC VEIN. Interventional Vascular Procedure 09/06/17 00:00 IMPRESSION: SUCCESSFUL PLACEMENT OF A 5 FR DUAL LUMEN 40 CM PICC IN THE LEFT BASILIC VEIN. PICC Line Insertion 09/06/17 00:00 IMPRESSION: SUCCESSFUL PLACEMENT OF A 5 FR DUAL LUMEN 40 CM PICC IN THE LEFT BASILIC VEIN. Abdomen X-Ray 09/11/17 07:00 IMPRESSION: Persistent ileus. KUB X-Ray 09/12/17 00:00 IMPRESSION: Persistent ileus Assessment & Plan - Diagnosis (1) Ileus Is this a current diagnosis for this admission?: Yes Plan: Rectal tube successfully decompressed his colon. Small bowel essentially unchanged, waiting for improvement. 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 He has some urethral breakdown, that is been followed by urology as an outpatient. (4) Expressive aphasia Is this a current diagnosis for this admission?: Yes Plan: His sister is quite sure he understands what is said to him. I am not so sure. Complicates understanding his needs. 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 (6) Dysphagia Is this a current diagnosis for this admission?: Yes Plan: Speech has been working with him. He is able to tolerate a small amount of comfort feeding. (7) Schizoaffective disorder Qualifiers: Schizoaffective disorder type: unspecified Qualified Code(s): F25.9 - Schizoaffective disorder, unspecified Is this a current diagnosis for this admission?: No Plan: Per old charts. Not on any outpatient antipsychotics.
[2017-09-12] MEDS: ERTAPENEM SODIUM 1 GM in NORMAL SALINE 50 ML IV SCH (18:12)
[2017-09-13] MEDS: METOCLOPRAMIDE HCL INJ/PF 10 MG/2 ML SDV IV SCH ×3 (05:51→17:14)
[2017-09-13 06:00] LABS: HEMATOCRIT 33.5 % (37.9-51.0); MEAN CORPUSCULAR HEMOGLOBIN 28.7 pg (27.0-33.4); MEAN CORPUSCULAR HGB CONC 32.9 g/dL (32.0-36.0); MEAN CORPUSCULAR VOLUME 87 fl (80-97); PLATELET COUNT 164 10^3/uL (150-450); RED BLOOD COUNT 3.84 10^6/uL (4.35-5.55); WHITE BLOOD COUNT 4.8 10^3/uL (4.0-10.5)
[2017-09-13 06:22] LABS: APPEARANCE,URINE SLIGHTLY-CLOUDY; BILIRUBIN,URINE NEGATIVE (NEGATIVE); COLOR,URINE YELLOW; GLUCOSE, URINE NEGATIVE (NEGATIVE); KETONES,URINE NEGATIVE (NEGATIVE); LEUKOCYTE ESTERASE,URINE LARGE (NEGATIVE); NITRITE,URINE POSITIVE (NEGATIVE); PROTEIN,URINE NEGATIVE (NEGATIVE); URINE SPECIFIC GRAVITY 1.013; UROBILINOGEN,URINE NEGATIVE mg/dL (<2.0)
[2017-09-13] MEDS: ENOXAPARIN SODIUM INJ 80 MG/0.8 ML DISP.SYRIN SUBCUT SCH ×2 (09:06→22:23)
[2017-09-13] MEDS: NORMAL SALINE 10 ML SDV (SCHEDULED) IV SCH ×2 (09:06→22:22)
[2017-09-13] MEDS: AMINO ACIDS 5%/D25W 1,000 ML IV PRN (09:06)
[2017-09-13] MEDS: BUDESONIDE/FORMOTEROL 160-4.5 MCG 60 PUFF/6 GM MDI IH SCH ×2 (09:06→22:22)
--- NOTE | 2017-09-13 10:10 | RADIOLOGY REPORT (SQ) ---
EXAM DESCRIPTION: KUB/ABDOMEN (SINGLE VIEW) COMPLETED DATE/TIME: 09/13/2017 9:38 am REASON FOR STUDY: f/u ileus COMPARISON: Abdomen pelvis 08/31/2017 Abdominal films from 08/29/2017 through 09/12/2017 NUMBER OF VIEWS: One view. TECHNIQUE: Supine radiographic image of the abdomen acquired. LIMITATIONS: None. FINDINGS: BOWEL GAS PATTERN: There is air in nondistended colon and rectosigmoid. Stool in the rect um. Mildly dilated small bowel loops and stomach in the upper abdomen. This is a nonspecific but ab normal bowel gas pattern CALCIFICATIONS: No suspicious calcifications. SOFT TISSUES: No gross mass or suggestion of organomegaly. HARDWARE: Left upper quadrant G-tube. Pickard catheter in the bladder. Faintly radiopaque rectal tube . BONES: No acute fracture. No worrisome bone lesions. OTHER: No other significant finding. IMPRESSION: Nonspecific bowel gas pattern. On today's study, there is air in nondistended colon. TECHNICAL DOCUMENTATION: JOB ID: [id number] [employer]- All Rights Reserved Reading location - IP/workstation name: [email or web address]
--- NOTE | 2017-09-13 16:51 | PDOC PROGRESS REPORT ---
Subjective Progress Note for:: 09/13/17 Subjective:: He is cheerful. Nods his head in response to all questions. Sister is present. She wants to continue present management, but does not want surgery. Reason For Visit: COPD,EXACERBATION Physical Exam Vital Signs: Temp Pulse Resp BP Pulse Ox 98.3 F 101 H 20 136/91 H 97 09/13/17 12:00 09/13/17 12:00 09/13/17 12:00 09/13/17 12:00 09/13/17 12:00 Intake & Output 09/12/17 09/13/17 09/14/17 05:59 05:59 05:59 Intake Total 2013 1690 780 Output Total 1949 1675 250 Balance 64 15 530 Weight 162 lb 4.163 oz 162 lb 14.746 oz General appearance: PRESENT: no acute distress Respiratory exam: PRESENT: clear to auscultation eric Cardiovascular exam: PRESENT: RRR GI/Abdominal exam: PRESENT: soft. ABSENT: distended Extremities exam: PRESENT: other - Edema Neurological exam: PRESENT: alert, motor sensory deficit - Left hemiplegia, aphasic Psychiatric exam: PRESENT: appropriate affect Skin exam: PRESENT: warm Results Laboratory Results: 09/13/17 05:35 09/11/17 06:45 09/13/17 09/13/17 05:35 05:35 WBC 4.8 RBC 3.84 L Hgb 11.0 L Hct 33.5 L MCV 87 MCH 28.7 MCHC 32.9 RDW 15.0 H Plt Count 164 Urine Color YELLOW Urine Appearance SLIGHTLY-CLOUDY Urine pH 6.0 Ur Specific [place] 1.013 Urine Protein NEGATIVE Urine Glucose (UA) NEGATIVE Urine Ketones NEGATIVE Urine Blood SMALL H Urine Nitrite POSITIVE H Ur Leukocyte Esterase LARGE H Urine WBC (Auto) >182 Urine RBC (Auto) 12 08/25/17 07:01 NT-Pro-B Natriuret Pep 796 Impressions: Acute Abdomen Series 08/26/17 00:00 IMPRESSION: Gaseous distention of the colon small bowel. Low colonic obstruction in the differential. Chest X-Ray 08/26/17 00:00 IMPRESSION: No acute cardiopulmonary findings. Abdomen/Pelvis CT 08/31/17 14:14 IMPRESSION: MODERATE FLUID AND GAS DISTENDED SMALL AND LARGE BOWEL LOOPS SUGGESTIVE OF ENTERITIS OR ILEUS. NO OBSTRUCTION OR INFLAMMATORY CHANGE IDENTIFIED. SMALL BILATERAL PLEURAL EFFUSIONS. PERCUTANEOUS GASTROSTOMY TUBE. Barium Enema 09/01/17 00:00 IMPRESSION: No distal colon obstruction. Bowel gas pattern compatible with ileus Guidance Fluoroscopy 09/06/17 00:00 IMPRESSION: SUCCESSFUL PLACEMENT OF A 5 FR DUAL LUMEN 40 CM PICC IN THE LEFT BASILIC VEIN. Interventional Vascular Procedure 09/06/17 00:00 IMPRESSION: SUCCESSFUL PLACEMENT OF A 5 FR DUAL LUMEN 40 CM PICC IN THE LEFT BASILIC VEIN. PICC Line Insertion 09/06/17 00:00 IMPRESSION: SUCCESSFUL PLACEMENT OF A 5 FR DUAL LUMEN 40 CM PICC IN THE LEFT BASILIC VEIN. Abdomen X-Ray 09/11/17 07:00 IMPRESSION: Persistent ileus. KUB X-Ray 09/13/17 00:00 IMPRESSION: Nonspecific bowel gas pattern. On today's study, there is air in nondistended colon. Assessment & Plan - Diagnosis (1) Ileus Is this a current diagnosis for this admission?: Yes Plan: KUB this morning shows a relatively normal bowel gas pattern. I will restart low-dose tube feeds. (2) UTI (urinary tract infection) Qualifiers: Urinary tract infection type: catheter-associated UTI Indwelling urinary catheter type: indwelling urethral catheter Is this a current diagnosis for this admission?: Yes Plan: Has steadily gotten worse. I tried him on Fortaz which seemed to have no effect. Change him over to ertapenem. Awaiting cultures. 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 He has some urethral breakdown, that is been followed by urology as an outpatient. (4) Expressive aphasia Is this a current diagnosis for this admission?: Yes Plan: His sister is quite sure he understands what is said to him. I am not so sure. Complicates understanding his needs. 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 (6) Dysphagia Is this a current diagnosis for this admission?: Yes Plan: Speech has been working with him. He is able to tolerate a small amount of comfort feeding. (7) Schizoaffective disorder Qualifiers: Schizoaffective disorder type: unspecified Qualified Code(s): F25.9 - Schizoaffective disorder, unspecified Is this a current diagnosis for this admission?: No Plan: Per old charts. Not on any outpatient antipsychotics.
--- NOTE | 2017-09-13 17:09 | PDOC PROGRESS REPORT ---
Subjective Progress Note for:: 09/13/17 Subjective:: Feels more comfortable with the rectal tube Reason For Visit: COPD,EXACERBATION Physical Exam Vital Signs: Temp Pulse Resp BP Pulse Ox 98.3 F 101 H 20 136/91 H 97 09/13/17 12:00 09/13/17 12:00 09/13/17 12:00 09/13/17 12:00 09/13/17 12:00 Intake & Output 09/12/17 09/13/17 09/14/17 06:59 06:59 06:59 Intake Total 2013 1749 Output Total 1749 1500 Balance 264 250 Weight 73.6 kg 73.9 kg Exam: Abd is soft and less distended Rectal tube in place Results Laboratory Results: 09/13/17 05:35 09/11/17 06:45 09/13/17 09/13/17 05:35 05:35 WBC 4.8 RBC 3.84 L Hgb 11.0 L Hct 33.5 L MCV 87 MCH 28.7 MCHC 32.9 RDW 15.0 H Plt Count 164 Urine Color YELLOW Urine Appearance SLIGHTLY-CLOUDY Urine pH 6.0 Ur Specific [place] 1.013 Urine Protein NEGATIVE Urine Glucose (UA) NEGATIVE Urine Ketones NEGATIVE Urine Blood SMALL H Urine Nitrite POSITIVE H Ur Leukocyte Esterase LARGE H Urine WBC (Auto) >182 Urine RBC (Auto) 12 08/25/17 07:01 NT-Pro-B Natriuret Pep 796 Impressions: Acute Abdomen Series 08/26/17 00:00 IMPRESSION: Gaseous distention of the colon small bowel. Low colonic obstruction in the differential. Chest X-Ray 08/26/17 00:00 IMPRESSION: No acute cardiopulmonary findings. Abdomen/Pelvis CT 08/31/17 14:14 IMPRESSION: MODERATE FLUID AND GAS DISTENDED SMALL AND LARGE BOWEL LOOPS SUGGESTIVE OF ENTERITIS OR ILEUS. NO OBSTRUCTION OR INFLAMMATORY CHANGE IDENTIFIED. SMALL BILATERAL PLEURAL EFFUSIONS. PERCUTANEOUS GASTROSTOMY TUBE. Barium Enema 09/01/17 00:00 IMPRESSION: No distal colon obstruction. Bowel gas pattern compatible with ileus Guidance Fluoroscopy 09/06/17 00:00 IMPRESSION: SUCCESSFUL PLACEMENT OF A 5 FR DUAL LUMEN 40 CM PICC IN THE LEFT BASILIC VEIN. Interventional Vascular Procedure 09/06/17 00:00 IMPRESSION: SUCCESSFUL PLACEMENT OF A 5 FR DUAL LUMEN 40 CM PICC IN THE LEFT BASILIC VEIN. PICC Line Insertion 09/06/17 00:00 IMPRESSION: SUCCESSFUL PLACEMENT OF A 5 FR DUAL LUMEN 40 CM PICC IN THE LEFT BASILIC VEIN. Abdomen X-Ray 09/11/17 07:00 IMPRESSION: Persistent ileus. KUB X-Ray 09/13/17 00:00 IMPRESSION: Nonspecific bowel gas pattern. On today's study, there is air in nondistended colon. Assessment & Plan - Time Time Spent with patient: 15-24 minutes - Plan Summary Plan Summary: Continue rectal tube Sister apparently would like to hold off diverting colostomy
[2017-09-13] MEDS: ERTAPENEM SODIUM 1 GM in NORMAL SALINE 50 ML IV SCH (17:25)
[2017-09-14] MEDS: METOCLOPRAMIDE HCL INJ/PF 10 MG/2 ML SDV IV SCH ×4 (00:10→18:14)
[2017-09-14] MEDS: AMINO ACIDS 5%/D25W 1,000 ML IV PRN ×2 (02:47→19:59)
[2017-09-14 07:24] LABS: ALANINE AMINOTRANSFERASE 32 U/L (21-72); ALBUMIN 3.6 g/dL (3.5-5.0); ALKALINE PHOSPHATASE 54 U/L (38-126); ANION GAP 15 (5-19); ASPARTATE AMINO TRANSFERASE 29 U/L (17-59); BILIRUBIN,DIRECT 0.3 mg/dL (0.0-0.4); BILIRUBIN,TOTAL 0.3 mg/dL (0.2-1.3); BLOOD UREA NITROGEN 18 mg/dL (7-20); CALCIUM 10.6 mg/dL (8.4-10.2); CARBON DIOXIDE 23 mmol/L (22-30); CHLORIDE 108 mmol/L (98-107); GLUCOSE 108 mg/dL (75-110); PHOSPHORUS 3.1 mg/dL (2.5-4.5); POTASSIUM 4.5 mmol/L (3.6-5.0); SODIUM 146.3 mmol/L (137-145); TOTAL PROTEIN 6.7 g/dL (6.3-8.2)
[2017-09-14 07:30] LABS: PREALBUMIN 29.2 mg/dL (17.6-36.0)
[2017-09-14] MEDS: BUDESONIDE/FORMOTEROL 160-4.5 MCG 60 PUFF/6 GM MDI IH SCH ×2 (10:56→22:04)
[2017-09-14] MEDS: FAT EMULSIONS 250 ML IV SCH (10:57)
[2017-09-14] MEDS: NORMAL SALINE 10 ML SDV (SCHEDULED) IV SCH ×2 (10:57→22:04)
[2017-09-14] MEDS: ENOXAPARIN SODIUM INJ 80 MG/0.8 ML DISP.SYRIN SUBCUT SCH ×2 (10:58→22:04)
--- NOTE | 2017-09-14 12:05 | PDOC PROGRESS REPORT ---
Subjective Progress Note for:: 09/14/17 Subjective:: More comfortable Reason For Visit: COPD,EXACERBATION Physical Exam Vital Signs: Temp Pulse Resp BP Pulse Ox 97.3 F 94 14 96/57 L 96 09/14/17 11:08 09/14/17 11:08 09/14/17 11:08 09/14/17 11:08 09/14/17 11:08 Intake & Output 09/13/17 09/14/17 09/15/17 06:59 06:59 06:59 Intake Total 1750 1323 Output Total 1500 1650 Balance 250 -327 Weight 73.9 kg 72.5 kg Exam: abd is soft and non tender with minimal distention Results Laboratory Results: 09/13/17 05:35 09/14/17 06:26 09/14/17 06:26 Sodium 146.3 H Potassium 4.5 Chloride 108 H Carbon Dioxide 23 Anion Gap 15 BUN 18 Creatinine 0.79 Est GFR ( Amer) > 60 Est GFR (Non-Af Amer) > 60 Glucose 108 Calcium 10.6 H Phosphorus 3.1 Magnesium 1.4 L Total Bilirubin 0.3 AST 29 ALT 32 Alkaline Phosphatase 54 Total Protein 6.7 Albumin 3.6 Prealbumin 29.2 09/12/17 06:25 Catheterized Urine Urine Culture - Final Pseudomonas Aeruginosa 08/25/17 07:01 NT-Pro-B Natriuret Pep 796 Impressions: Acute Abdomen Series 08/26/17 00:00 IMPRESSION: Gaseous distention of the colon small bowel. Low colonic obstruction in the differential. Chest X-Ray 08/26/17 00:00 IMPRESSION: No acute cardiopulmonary findings. Abdomen/Pelvis CT 08/31/17 14:14 IMPRESSION: MODERATE FLUID AND GAS DISTENDED SMALL AND LARGE BOWEL LOOPS SUGGESTIVE OF ENTERITIS OR ILEUS. NO OBSTRUCTION OR INFLAMMATORY CHANGE IDENTIFIED. SMALL BILATERAL PLEURAL EFFUSIONS. PERCUTANEOUS GASTROSTOMY TUBE. Barium Enema 09/01/17 00:00 IMPRESSION: No distal colon obstruction. Bowel gas pattern compatible with ileus Guidance Fluoroscopy 09/06/17 00:00 IMPRESSION: SUCCESSFUL PLACEMENT OF A 5 FR DUAL LUMEN 40 CM PICC IN THE LEFT BASILIC VEIN. Interventional Vascular Procedure 09/06/17 00:00 IMPRESSION: SUCCESSFUL PLACEMENT OF A 5 FR DUAL LUMEN 40 CM PICC IN THE LEFT BASILIC VEIN. PICC Line Insertion 09/06/17 00:00 IMPRESSION: SUCCESSFUL PLACEMENT OF A 5 FR DUAL LUMEN 40 CM PICC IN THE LEFT BASILIC VEIN. Abdomen X-Ray 09/11/17 07:00 IMPRESSION: Persistent ileus. KUB X-Ray 09/13/17 00:00 IMPRESSION: Nonspecific bowel gas pattern. On today's study, there is air in nondistended colon. Assessment & Plan - Time Time Spent with patient: 15-24 minutes - Plan Summary Plan Summary: Talked to his sister at bedside. She still would like to avoid any operation OK to resume tube feeds-started already
[2017-09-14] MEDS: MAGNESIUM SULFATE/D5W 1 GM/100 ML RTUPB IV SCH ×2 (13:51→15:26)
[2017-09-14] MEDS: MEROPENEM 1 GM in NORMAL SALINE 50 ML IV SCH ×2 (15:25→22:04)
--- NOTE | 2017-09-14 15:28 | PDOC PROGRESS REPORT ---
Subjective Progress Note for:: 09/14/17 Subjective:: doing extremely well no abdominal pain tolerating po diet well repeat KUB shows resolution ileus Reason For Visit: COPD,EXACERBATION Physical Exam Vital Signs: Temp Pulse Resp BP Pulse Ox 97.3 F 94 14 96/57 L 96 09/14/17 11:08 09/14/17 11:08 09/14/17 11:08 09/14/17 11:08 09/14/17 11:08 Intake & Output 09/13/17 09/14/17 09/15/17 00:59 00:59 00:59 Intake Total 1690 1710 393 Output Total 1675 1400 500 Balance 15 310 -107 Weight 73.6 kg 73.9 kg 72.5 kg appears comfortable General appearance: PRESENT: no acute distress Head exam: PRESENT: atraumatic, normocephalic Eye exam: PRESENT: conjunctiva pink, EOMI, PERRLA. ABSENT: scleral icterus Neck exam: ABSENT: carotid bruit, JVD, lymphadenopathy, thyromegaly Respiratory exam: PRESENT: clear to auscultation eric. ABSENT: rales, rhonchi, wheezes Pulses: PRESENT: normal dorsalis pedis pul GI/Abdominal exam: PRESENT: normal bowel sounds, soft. ABSENT: distended, guarding, mass, organolmegaly, rebound, tenderness Neurological exam: PRESENT: awake, CN II-XII grossly intact Results Laboratory Results: 09/13/17 05:35 09/14/17 06:26 09/14/17 06:26 Sodium 146.3 H Potassium 4.5 Chloride 108 H Carbon Dioxide 23 Anion Gap 15 BUN 18 Creatinine 0.79 Est GFR ( Amer) > 60 Est GFR (Non-Af Amer) > 60 Glucose 108 Calcium 10.6 H Phosphorus 3.1 Magnesium 1.4 L Total Bilirubin 0.3 AST 29 ALT 32 Alkaline Phosphatase 54 Total Protein 6.7 Albumin 3.6 Prealbumin 29.2 09/12/17 06:25 Catheterized Urine Urine Culture - Final Pseudomonas Aeruginosa 08/25/17 07:01 NT-Pro-B Natriuret Pep 796 Impressions: Acute Abdomen Series 08/26/17 00:00 IMPRESSION: Gaseous distention of the colon small bowel. Low colonic obstruction in the differential. Chest X-Ray 08/26/17 00:00 IMPRESSION: No acute cardiopulmonary findings. Abdomen/Pelvis CT 08/31/17 14:14 IMPRESSION: MODERATE FLUID AND GAS DISTENDED SMALL AND LARGE BOWEL LOOPS SUGGESTIVE OF ENTERITIS OR ILEUS. NO OBSTRUCTION OR INFLAMMATORY CHANGE IDENTIFIED. SMALL BILATERAL PLEURAL EFFUSIONS. PERCUTANEOUS GASTROSTOMY TUBE. Barium Enema 09/01/17 00:00 IMPRESSION: No distal colon obstruction. Bowel gas pattern compatible with ileus Guidance Fluoroscopy 09/06/17 00:00 IMPRESSION: SUCCESSFUL PLACEMENT OF A 5 FR DUAL LUMEN 40 CM PICC IN THE LEFT BASILIC VEIN. Interventional Vascular Procedure 09/06/17 00:00 IMPRESSION: SUCCESSFUL PLACEMENT OF A 5 FR DUAL LUMEN 40 CM PICC IN THE LEFT BASILIC VEIN. PICC Line Insertion 09/06/17 00:00 IMPRESSION: SUCCESSFUL PLACEMENT OF A 5 FR DUAL LUMEN 40 CM PICC IN THE LEFT BASILIC VEIN. Abdomen X-Ray 09/11/17 07:00 IMPRESSION: Persistent ileus. KUB X-Ray 09/13/17 00:00 IMPRESSION: Nonspecific bowel gas pattern. On today's study, there is air in nondistended colon. Assessment & Plan - Diagnosis (1) Chronic anticoagulation Is this a current diagnosis for this admission?: Yes (2) Chronic indwelling Pickard catheter Is this a current diagnosis for this admission?: Yes (3) Constipation Qualifiers: Constipation type: chronic idiopathic constipation Qualified Code(s): K59.04 - Chronic idiopathic constipation Is this a current diagnosis for this admission?: Yes (4) Dysphagia Is this a current diagnosis for this admission?: Yes (5) History of CVA with residual deficit Is this a current diagnosis for this admission?: Yes (6) Ileus Is this a current diagnosis for this admission?: Yes (7) Schizoaffective disorder Qualifiers: Schizoaffective disorder type: unspecified Qualified Code(s): F25.9 - Schizoaffective disorder, unspecified Is this a current diagnosis for this admission?: Yes (8) Constipation Qualifiers: Constipation type: slow transit constipation Qualified Code(s): K59.01 - Slow transit constipation Is this a current diagnosis for this admission?: Yes (9) Hypokalemia Is this a current diagnosis for this admission?: Yes (10) UTI (urinary tract infection) Qualifiers: Urinary tract infection type: catheter-associated UTI Indwelling urinary catheter type: indwelling urethral catheter Is this a current diagnosis for this admission?: Yes (11) Pseudomonas aeruginosa infection Is this a current diagnosis for this admission?: Yes Plan: persistent in urine switch coverage to Meropenem - Time Time Spent with patient: resume po feedings TPN may be discontinued Time Spent with patient: 25-34 minutes
[2017-09-15] MEDS: METOCLOPRAMIDE HCL INJ/PF 10 MG/2 ML SDV IV SCH ×4 (00:02→17:33)
[2017-09-15] MEDS: MEROPENEM 1 GM in NORMAL SALINE 50 ML IV SCH ×3 (05:54→22:08)
[2017-09-15 06:28] LABS: HEMATOCRIT 32.8 % (37.9-51.0); HEMOGLOBIN 10.8 g/dL (13.5-17.0); MEAN CORPUSCULAR HEMOGLOBIN 28.8 pg (27.0-33.4); MEAN CORPUSCULAR HGB CONC 33.1 g/dL (32.0-36.0); MEAN CORPUSCULAR VOLUME 87 fl (80-97); PLATELET COUNT 183 10^3/uL (150-450); RED BLOOD COUNT 3.76 10^6/uL (4.35-5.55); RED CELL DISTRIBUTION WIDTH 14.7 % (11.5-14.0); WHITE BLOOD COUNT 5.7 10^3/uL (4.0-10.5)
[2017-09-15 06:41] LABS: APPEARANCE,URINE SLIGHTLY-CLOUDY; BILIRUBIN,URINE NEGATIVE (NEGATIVE); COLOR,URINE YELLOW; GLUCOSE, URINE NEGATIVE (NEGATIVE); KETONES,URINE NEGATIVE (NEGATIVE); LEUKOCYTE ESTERASE,URINE LARGE (NEGATIVE); NITRITE,URINE NEGATIVE (NEGATIVE); PROTEIN,URINE NEGATIVE (NEGATIVE); URINE SPECIFIC GRAVITY 1.006; UROBILINOGEN,URINE NEGATIVE mg/dL (<2.0)
[2017-09-15] MEDS: NORMAL SALINE 10 ML SDV (SCHEDULED) IV SCH ×2 (10:15→22:03)
[2017-09-15] MEDS: ENOXAPARIN SODIUM INJ 80 MG/0.8 ML DISP.SYRIN SUBCUT SCH ×2 (10:16→22:08)
[2017-09-15] MEDS: BUDESONIDE/FORMOTEROL 160-4.5 MCG 60 PUFF/6 GM MDI IH SCH ×2 (10:16→22:08)
[2017-09-15] MEDS ORDERED: DEXTROSE 10%-WATER 1,000 ML IV PRN (18:30)
--- NOTE | 2017-09-15 18:35 | PDOC PROGRESS REPORT ---
Subjective Progress Note for:: 09/15/17 Subjective:: very much improved tolerating diet well no abdominal pain or distension Reason For Visit: COPD,EXACERBATION Physical Exam Vital Signs: Temp Pulse Resp BP Pulse Ox 98.3 F 99 18 106/63 96 09/15/17 14:54 09/15/17 14:54 09/15/17 14:54 09/15/17 14:54 09/15/17 14:54 Intake & Output 09/14/17 09/15/17 09/16/17 00:59 00:59 00:59 Intake Total 1710 1744 2011 Output Total 1400 2225 1425 Balance 310 -706 097 Weight 73.9 kg 72.5 kg 72.5 kg General appearance: PRESENT: no acute distress Head exam: PRESENT: atraumatic Eye exam: PRESENT: conjunctiva pink, EOMI, PERRLA. ABSENT: scleral icterus Neck exam: ABSENT: carotid bruit, JVD, lymphadenopathy, thyromegaly Respiratory exam: PRESENT: clear to auscultation eric. ABSENT: rales, rhonchi, wheezes Cardiovascular exam: PRESENT: RRR. ABSENT: diastolic murmur, rubs, systolic murmur Pulses: PRESENT: normal dorsalis pedis pul GI/Abdominal exam: PRESENT: normal bowel sounds, soft. ABSENT: distended, guarding, mass, organolmegaly, rebound, tenderness Neurological exam: PRESENT: awake, aphasic Results Laboratory Results: 09/15/17 06:00 09/14/17 06:26 09/15/17 09/15/17 09/15/17 06:00 06:00 08:50 WBC 5.7 RBC 3.76 L Hgb 10.8 L Hct 32.8 L MCV 87 MCH 28.8 MCHC 33.1 RDW 14.7 H Plt Count 183 Urine Color YELLOW Urine Appearance SLIGHTLY-CLOUDY Urine pH 6.0 Ur Specific [place] 1.006 Urine Protein NEGATIVE Urine Glucose (UA) NEGATIVE Urine Ketones NEGATIVE Urine Blood SMALL H Urine Nitrite NEGATIVE Ur Leukocyte Esterase LARGE H Urine WBC (Auto) 27 Urine RBC (Auto) 8 Stool Occult Blood NEGATIVE 08/25/17 07:01 NT-Pro-B Natriuret Pep 796 Impressions: Acute Abdomen Series 08/26/17 00:00 IMPRESSION: Gaseous distention of the colon small bowel. Low colonic obstruction in the differential. Chest X-Ray 08/26/17 00:00 IMPRESSION: No acute cardiopulmonary findings. Abdomen/Pelvis CT 08/31/17 14:14 IMPRESSION: MODERATE FLUID AND GAS DISTENDED SMALL AND LARGE BOWEL LOOPS SUGGESTIVE OF ENTERITIS OR ILEUS. NO OBSTRUCTION OR INFLAMMATORY CHANGE IDENTIFIED. SMALL BILATERAL PLEURAL EFFUSIONS. PERCUTANEOUS GASTROSTOMY TUBE. Barium Enema 09/01/17 00:00 IMPRESSION: No distal colon obstruction. Bowel gas pattern compatible with ileus Guidance Fluoroscopy 09/06/17 00:00 IMPRESSION: SUCCESSFUL PLACEMENT OF A 5 FR DUAL LUMEN 40 CM PICC IN THE LEFT BASILIC VEIN. Interventional Vascular Procedure 09/06/17 00:00 IMPRESSION: SUCCESSFUL PLACEMENT OF A 5 FR DUAL LUMEN 40 CM PICC IN THE LEFT BASILIC VEIN. PICC Line Insertion 09/06/17 00:00 IMPRESSION: SUCCESSFUL PLACEMENT OF A 5 FR DUAL LUMEN 40 CM PICC IN THE LEFT BASILIC VEIN. Abdomen X-Ray 09/11/17 07:00 IMPRESSION: Persistent ileus. KUB X-Ray 09/13/17 00:00 IMPRESSION: Nonspecific bowel gas pattern. On today's study, there is air in nondistended colon. Assessment & Plan - Diagnosis (1) Chronic anticoagulation Is this a current diagnosis for this admission?: Yes (2) Chronic indwelling Pickard catheter Is this a current diagnosis for this admission?: Yes (3) Constipation Qualifiers: Constipation type: chronic idiopathic constipation Qualified Code(s): K59.04 - Chronic idiopathic constipation Is this a current diagnosis for this admission?: Yes (4) Dysphagia Is this a current diagnosis for this admission?: Yes (5) History of CVA with residual deficit Is this a current diagnosis for this admission?: Yes (6) Ileus Is this a current diagnosis for this admission?: Yes Plan: resolved resumed diet d/c rectal tube (7) Schizoaffective disorder Qualifiers: Schizoaffective disorder type: unspecified Qualified Code(s): F25.9 - Schizoaffective disorder, unspecified Is this a current diagnosis for this admission?: Yes (8) Constipation Qualifiers: Constipation type: slow transit constipation Qualified Code(s): K59.01 - Slow transit constipation Is this a current diagnosis for this admission?: Yes (9) Hypokalemia Is this a current diagnosis for this admission?: Yes (10) UTI (urinary tract infection) Qualifiers: Urinary tract infection type: catheter-associated UTI Indwelling urinary catheter type: indwelling urethral catheter Is this a current diagnosis for this admission?: Yes (11) Pseudomonas aeruginosa infection Is this a current diagnosis for this admission?: Yes Plan: continue meropenem iV - Time Time Spent with patient: d/c home on monday with [facility]
[2017-09-15] MEDS: ACETAMINOPHEN 325 MG TABLET PO PRN (22:08)
[2017-09-16] MEDS: METOCLOPRAMIDE HCL INJ/PF 10 MG/2 ML SDV IV SCH ×4 (00:30→17:34)
[2017-09-16] MEDS: NORMAL SALINE 10 ML SDV (AFTER EACH USE) IV PRN ×2 (00:30→05:28)
[2017-09-16] MEDS: MEROPENEM 1 GM in NORMAL SALINE 50 ML IV SCH ×3 (05:31→21:21)
[2017-09-16] MEDS: NORMAL SALINE 10 ML SDV (SCHEDULED) IV SCH ×2 (08:43→21:22)
[2017-09-16] MEDS: ENOXAPARIN SODIUM INJ 80 MG/0.8 ML DISP.SYRIN SUBCUT SCH ×2 (08:44→21:21)
[2017-09-16] MEDS: BUDESONIDE/FORMOTEROL 160-4.5 MCG 60 PUFF/6 GM MDI IH SCH ×2 (08:44→21:21)
[2017-09-16] MEDS: SIMETHICONE 80 MG TAB.CHEW PO PRN (17:34)
--- NOTE | 2017-09-16 18:44 | PDOC PROGRESS REPORT ---
Subjective Progress Note for:: 09/16/17 Subjective:: Still continues to improve abdomen soft Tolerating p.o. diet Reason For Visit: COPD,EXACERBATION Physical Exam Vital Signs: Temp Pulse Resp BP Pulse Ox 97.4 F 109 H 14 101/68 89 L 09/16/17 15:20 09/16/17 15:20 09/16/17 15:20 09/16/17 15:20 09/16/17 15:20 Intake & Output 09/15/17 09/16/17 09/17/17 00:59 00:59 00:59 Intake Total 1743 2011 156 Output Total 2224 1825 2200 Balance -481 187 -2044 Weight 72.5 kg 72.5 kg 72.5 kg General appearance: PRESENT: no acute distress Head exam: PRESENT: atraumatic Eye exam: PRESENT: conjunctiva pink, EOMI, PERRLA. ABSENT: scleral icterus Neck exam: ABSENT: carotid bruit, JVD, lymphadenopathy, thyromegaly Respiratory exam: PRESENT: clear to auscultation eric. ABSENT: rales, rhonchi, wheezes Cardiovascular exam: PRESENT: RRR. ABSENT: diastolic murmur, rubs, systolic murmur Pulses: PRESENT: normal dorsalis pedis pul GI/Abdominal exam: PRESENT: normal bowel sounds, soft. ABSENT: distended, guarding, mass, organolmegaly, rebound, tenderness Neurological exam: PRESENT: awake, aphasic Results Laboratory Results: 09/15/17 06:00 09/14/17 06:26 08/25/17 07:01 NT-Pro-B Natriuret Pep 796 Impressions: Acute Abdomen Series 08/26/17 00:00 IMPRESSION: Gaseous distention of the colon small bowel. Low colonic obstruction in the differential. Chest X-Ray 08/26/17 00:00 IMPRESSION: No acute cardiopulmonary findings. Abdomen/Pelvis CT 08/31/17 14:14 IMPRESSION: MODERATE FLUID AND GAS DISTENDED SMALL AND LARGE BOWEL LOOPS SUGGESTIVE OF ENTERITIS OR ILEUS. NO OBSTRUCTION OR INFLAMMATORY CHANGE IDENTIFIED. SMALL BILATERAL PLEURAL EFFUSIONS. PERCUTANEOUS GASTROSTOMY TUBE. Barium Enema 09/01/17 00:00 IMPRESSION: No distal colon obstruction. Bowel gas pattern compatible with ileus Guidance Fluoroscopy 09/06/17 00:00 IMPRESSION: SUCCESSFUL PLACEMENT OF A 5 FR DUAL LUMEN 40 CM PICC IN THE LEFT BASILIC VEIN. Interventional Vascular Procedure 09/06/17 00:00 IMPRESSION: SUCCESSFUL PLACEMENT OF A 5 FR DUAL LUMEN 40 CM PICC IN THE LEFT BASILIC VEIN. PICC Line Insertion 09/06/17 00:00 IMPRESSION: SUCCESSFUL PLACEMENT OF A 5 FR DUAL LUMEN 40 CM PICC IN THE LEFT BASILIC VEIN. Abdomen X-Ray 09/11/17 07:00 IMPRESSION: Persistent ileus. KUB X-Ray 09/13/17 00:00 IMPRESSION: Nonspecific bowel gas pattern. On today's study, there is air in nondistended colon. Assessment & Plan - Diagnosis (1) Chronic anticoagulation Is this a current diagnosis for this admission?: Yes (2) Chronic indwelling Pickard catheter Is this a current diagnosis for this admission?: Yes (3) Constipation Qualifiers: Constipation type: chronic idiopathic constipation Qualified Code(s): K59.04 - Chronic idiopathic constipation Is this a current diagnosis for this admission?: Yes (4) Dysphagia Is this a current diagnosis for this admission?: Yes (5) History of CVA with residual deficit Is this a current diagnosis for this admission?: Yes (6) Ileus Is this a current diagnosis for this admission?: Yes (7) Schizoaffective disorder Qualifiers: Schizoaffective disorder type: unspecified Qualified Code(s): F25.9 - Schizoaffective disorder, unspecified Is this a current diagnosis for this admission?: Yes (8) Constipation Qualifiers: Constipation type: slow transit constipation Qualified Code(s): K59.01 - Slow transit constipation Is this a current diagnosis for this admission?: Yes (9) Hypokalemia Is this a current diagnosis for this admission?: Yes (10) UTI (urinary tract infection) Qualifiers: Urinary tract infection type: catheter-associated UTI Indwelling urinary catheter type: indwelling urethral catheter Is this a current diagnosis for this admission?: Yes (11) Pseudomonas aeruginosa infection Is this a current diagnosis for this admission?: Yes - Time Time Spent with patient: We will reevaluate feedings tomorrow Increase tube feedings to 25 an hour Continue p.o. feedings for comfort Patient may be discharged on Monday with home health and hospital bed if still stable Time Spent with patient: 25-34 minutes
[2017-09-17] MEDS: METOCLOPRAMIDE HCL INJ/PF 10 MG/2 ML SDV IV SCH ×5 (00:06→23:54)
[2017-09-17] MEDS: MEROPENEM 1 GM in NORMAL SALINE 50 ML IV SCH ×3 (05:51→21:54)
[2017-09-17] MEDS: BUDESONIDE/FORMOTEROL 160-4.5 MCG 60 PUFF/6 GM MDI IH SCH ×2 (09:10→21:55)
[2017-09-17] MEDS: ENOXAPARIN SODIUM INJ 80 MG/0.8 ML DISP.SYRIN SUBCUT SCH ×2 (09:13→21:55)
[2017-09-17] MEDS: NORMAL SALINE 10 ML SDV (SCHEDULED) IV SCH ×2 (09:26→21:54)
--- NOTE | 2017-09-17 11:33 | RADIOLOGY REPORT (SQ) ---
EXAM DESCRIPTION: KUB/ABDOMEN (SINGLE VIEW) COMPLETED DATE/TIME: 09/17/2017 11:25 am REASON FOR STUDY: distended COMPARISON: 09/13/2017 NUMBER OF VIEWS: One view. TECHNIQUE: Supine radiographic image of the abdomen acquired. LIMITATIONS: None. FINDINGS: BOWEL GAS PATTERN: Normal bowel gas pattern. Gas distended loops again noted. CALCIFICATIONS: No suspicious calcifications. SOFT TISSUES: No gross mass or suggestion of organomegaly. HARDWARE: Pickard catheter. Percutaneous gastrostomy tube. BONES: No acute fracture. No worrisome bone lesions. OTHER: No other significant finding. IMPRESSION: NONOBSTRUCTED BOWEL-GAS PATTERN. NO SIGNIFICANT CHANGE FROM PRIOR STUDY. TECHNICAL DOCUMENTATION: JOB ID: [id number] [employer]- All Rights Reserved Reading location - IP/workstation name: [email or web address]
--- NOTE | 2017-09-17 11:34 | RADIOLOGY REPORT (SQ) ---
EXAM DESCRIPTION: CHEST SINGLE VIEW COMPLETED DATE/TIME: 09/17/2017 11:25 am REASON FOR STUDY: cough ? aspirated COMPARISON: 08/26/2017 EXAM PARAMETERS: NUMBER OF VIEWS: One view. TECHNIQUE: Single frontal radiographic view of the chest acquired. RADIATION DOSE: NA LIMITATIONS: None. FINDINGS: LUNGS AND PLEURA: Stable chronic lung change without new opacities, masses or pneumothorax . No pleural effusion. MEDIASTINUM AND HILAR STRUCTURES: No masses. Contour normal. HEART AND VASCULAR STRUCTURES: Heart normal in size. Normal vasculature. BONES: No acute findings. HARDWARE: Left-sided PICC terminates within the junction of the brachiocephalic vein and superior paul a cava OTHER: No other significant finding. IMPRESSION: NO ACUTE RADIOGRAPHIC FINDING IN THE CHEST. TECHNICAL DOCUMENTATION: JOB ID: [id number]- All Rights Reserved Reading location - IP/workstation name: [email or web address]
[2017-09-17] MEDS: BISACODYL 10 MG SUPP.RECT PR SCH (13:58)
--- NOTE | 2017-09-17 14:31 | PDOC PROGRESS REPORT ---
Subjective Progress Note for:: 09/17/17 Subjective:: Patient was complaining of some abdominal discomfort today A chest x-ray and KUB were unremarkable He has no fever no chills Reason For Visit: COPD,EXACERBATION Physical Exam Vital Signs: Temp Pulse Resp BP Pulse Ox 98.9 F 102 H 18 114/86 H 94 09/16/17 23:28 09/16/17 23:28 09/16/17 23:28 09/16/17 23:28 09/16/17 23:28 Intake & Output 09/16/17 09/17/17 09/18/17 00:59 00:59 00:59 Intake Total 2011 206 100 Output Total 1825 2600 75 Balance 187 -6259 25 Weight 72.5 kg 72.5 kg 74.1 kg General appearance: PRESENT: no acute distress Head exam: PRESENT: atraumatic Eye exam: PRESENT: conjunctiva pink, EOMI, PERRLA. ABSENT: scleral icterus Neck exam: ABSENT: carotid bruit, JVD, lymphadenopathy, thyromegaly Respiratory exam: PRESENT: clear to auscultation eric. ABSENT: rales, rhonchi, wheezes Cardiovascular exam: PRESENT: RRR. ABSENT: diastolic murmur, rubs, systolic murmur Pulses: PRESENT: normal dorsalis pedis pul GI/Abdominal exam: PRESENT: normal bowel sounds, soft. ABSENT: distended, guarding, mass, organolmegaly, rebound, tenderness Neurological exam: PRESENT: awake, aphasic Results Laboratory Results: 09/15/17 06:00 09/14/17 06:26 08/25/17 07:01 NT-Pro-B Natriuret Pep 796 Impressions: Acute Abdomen Series 08/26/17 00:00 IMPRESSION: Gaseous distention of the colon small bowel. Low colonic obstruction in the differential. Abdomen/Pelvis CT 08/31/17 14:14 IMPRESSION: MODERATE FLUID AND GAS DISTENDED SMALL AND LARGE BOWEL LOOPS SUGGESTIVE OF ENTERITIS OR ILEUS. NO OBSTRUCTION OR INFLAMMATORY CHANGE IDENTIFIED. SMALL BILATERAL PLEURAL EFFUSIONS. PERCUTANEOUS GASTROSTOMY TUBE. Barium Enema 09/01/17 00:00 IMPRESSION: No distal colon obstruction. Bowel gas pattern compatible with ileus Guidance Fluoroscopy 09/06/17 00:00 IMPRESSION: SUCCESSFUL PLACEMENT OF A 5 FR DUAL LUMEN 40 CM PICC IN THE LEFT BASILIC VEIN. Interventional Vascular Procedure 09/06/17 00:00 IMPRESSION: SUCCESSFUL PLACEMENT OF A 5 FR DUAL LUMEN 40 CM PICC IN THE LEFT BASILIC VEIN. PICC Line Insertion 09/06/17 00:00 IMPRESSION: SUCCESSFUL PLACEMENT OF A 5 FR DUAL LUMEN 40 CM PICC IN THE LEFT BASILIC VEIN. Abdomen X-Ray 09/11/17 07:00 IMPRESSION: Persistent ileus. KUB X-Ray 09/17/17 10:05 IMPRESSION: NONOBSTRUCTED BOWEL-GAS PATTERN. NO SIGNIFICANT CHANGE FROM PRIOR STUDY. Chest X-Ray 09/17/17 10:06 IMPRESSION: NO ACUTE RADIOGRAPHIC FINDING IN THE CHEST. Assessment & Plan - Diagnosis (1) Chronic anticoagulation Is this a current diagnosis for this admission?: Yes Plan: Lovenox 70 mg subcu every 12 (2) Chronic indwelling Pickard catheter Is this a current diagnosis for this admission?: Yes (3) Constipation Qualifiers: Constipation type: chronic idiopathic constipation Qualified Code(s): K59.04 - Chronic idiopathic constipation Is this a current diagnosis for this admission?: Yes (4) Dysphagia Is this a current diagnosis for this admission?: Yes Plan: Patient was n.p.o. but seems to be tolerating a dysphagia diet Certainly is at great risk for aspiration Repeat X chest x-ray today did not show any infiltrate Patient does want to eat and will let him have small bits of food for comfort (5) History of CVA with residual deficit Is this a current diagnosis for this admission?: Yes Plan: Left-sided hemiparesis Patient is not ambulatory (6) Ileus Is this a current diagnosis for this admission?: Yes Plan: Patient had a prolonged ileus He was kept n.p.o. with TPN and the rectal tube for several days Ileus has resolved And nutrition has been resumed (7) Schizoaffective disorder Qualifiers: Schizoaffective disorder type: unspecified Qualified Code(s): F25.9 - Schizoaffective disorder, unspecified Is this a current diagnosis for this admission?: Yes (8) Constipation Qualifiers: Constipation type: slow transit constipation Qualified Code(s): K59.01 - Slow transit constipation Is this a current diagnosis for this admission?: Yes Plan: Continue lactulose (9) Hypokalemia Is this a current diagnosis for this admission?: Yes Plan: Resolved We will follow-up BMP and mag in a.m. (10) Pseudomonas aeruginosa infection Is this a current diagnosis for this admission?: Yes Plan: Patient had recurrent pseudomonas aeruginosa infection; he is currently treated with meropenem Meropenem course to be completed on 08/20/2017 Patient may be discharged after course is completed (11) On enteral nutrition Is this a current diagnosis for this admission?: Yes Plan: Patient is currently getting 25 mL/h Goal for him was 50 mL/h As patient is getting some nutrition p.o. rate can be increased to 40 mL/h prior to discharge - Time Time Spent with patient: 25-34 minutes
[2017-09-17] MEDS: ACETAMINOPHEN 325 MG TABLET PO PRN (21:54)
[2017-09-18] MEDS: METOCLOPRAMIDE HCL INJ/PF 10 MG/2 ML SDV IV SCH ×4 (05:46→23:21)
[2017-09-18] MEDS: MEROPENEM 1 GM in NORMAL SALINE 50 ML IV SCH ×3 (05:46→22:47)
[2017-09-18 06:22] LABS: HEMATOCRIT 35.7 % (37.9-51.0); HEMOGLOBIN 11.7 g/dL (13.5-17.0); MEAN CORPUSCULAR HEMOGLOBIN 28.5 pg (27.0-33.4); MEAN CORPUSCULAR HGB CONC 32.8 g/dL (32.0-36.0); MEAN CORPUSCULAR VOLUME 87 fl (80-97); PLATELET COUNT 242 10^3/uL (150-450); RED BLOOD COUNT 4.11 10^6/uL (4.35-5.55); RED CELL DISTRIBUTION WIDTH 14.8 % (11.5-14.0); WHITE BLOOD COUNT 5.8 10^3/uL (4.0-10.5)
[2017-09-18 06:31] LABS: APPEARANCE,URINE TURBID; BILIRUBIN,URINE NEGATIVE (NEGATIVE); COLOR,URINE YELLOW; GLUCOSE, URINE NEGATIVE (NEGATIVE); KETONES,URINE NEGATIVE (NEGATIVE); LEUKOCYTE ESTERASE,URINE LARGE (NEGATIVE); NITRITE,URINE NEGATIVE (NEGATIVE); PROTEIN,URINE 30 mg/dL (NEGATIVE); URINE SPECIFIC GRAVITY 1.015; UROBILINOGEN,URINE NEGATIVE mg/dL (<2.0)
[2017-09-18] MEDS: BUDESONIDE/FORMOTEROL 160-4.5 MCG 60 PUFF/6 GM MDI IH SCH ×2 (11:14→22:47)
[2017-09-18] MEDS: NORMAL SALINE 10 ML SDV (SCHEDULED) IV SCH ×2 (11:16→22:48)
[2017-09-18] MEDS: ENOXAPARIN SODIUM INJ 80 MG/0.8 ML DISP.SYRIN SUBCUT SCH ×2 (11:16→22:48)
[2017-09-18] MEDS: BISACODYL 10 MG SUPP.RECT PR SCH (11:21)
[2017-09-18] MEDS: SIMETHICONE 80 MG TAB.CHEW PO PRN (11:24)
--- NOTE | 2017-09-18 16:35 | PDOC PROGRESS REPORT ---
Subjective Progress Note for:: 09/18/17 Subjective:: The patient is resting in his bed. He has no complaints that he is able to vocalize. He will not answer questions for me. Review of systems could not be obtained. I spoke to the patient's family members at the bedside. I updated them regarding the plan of care and all of their questions were answered. Reason For Visit: COPD,EXACERBATION Physical Exam Vital Signs: Temp Pulse Resp BP Pulse Ox 98.3 F 107 H 14 103/63 92 09/18/17 11:43 09/18/17 11:43 09/18/17 11:43 09/18/17 11:43 09/18/17 11:43 Intake & Output 09/17/17 09/18/17 09/19/17 06:59 06:59 06:59 Intake Total 306 472 Output Total 1475 1075 Balance -1169 -603 Weight 74.1 kg 74.7 kg General appearance: PRESENT: no acute distress, well-developed, well-nourished Head exam: PRESENT: atraumatic, normocephalic Eye exam: PRESENT: conjunctiva pink, EOMI, PERRLA. ABSENT: scleral icterus Mouth exam: PRESENT: moist, tongue midline Neck exam: ABSENT: carotid bruit, JVD, lymphadenopathy, thyromegaly Respiratory exam: PRESENT: clear to auscultation eric. ABSENT: rales, rhonchi, wheezes Cardiovascular exam: PRESENT: RRR. ABSENT: diastolic murmur, rubs, systolic murmur GI/Abdominal exam: PRESENT: normal bowel sounds, soft, other - PEG tube in place and currently receiving tube feedings.. ABSENT: distended, guarding, mass , organolmegaly, rebound, tenderness Rectal exam: PRESENT: deferred Extremities exam: PRESENT: full ROM. ABSENT: calf tenderness, clubbing, pedal edema Neurological exam: PRESENT: alert, awake, oriented to person. ABSENT: oriented to place, oriented to time, oriented to situation Psychiatric exam: PRESENT: flat affect. ABSENT: homicidal ideation, suicidal ideation Skin exam: PRESENT: dry, intact, warm. ABSENT: cyanosis, rash Results Laboratory Results: 09/18/17 05:15 09/14/17 06:26 09/18/17 09/18/17 09/18/17 05:15 05:50 05:50 WBC 5.8 RBC 4.11 L Hgb 11.7 L Hct 35.7 L MCV 87 MCH 28.5 MCHC 32.8 RDW 14.8 H Plt Count 242 Phosphorus Triglycerides Urine Color YELLOW Urine Appearance TURBID Urine pH 6.0 Ur Specific [place] 1.015 Urine Protein 30 H Urine Glucose (UA) NEGATIVE Urine Ketones NEGATIVE Urine Blood NEGATIVE Urine Nitrite NEGATIVE Ur Leukocyte Esterase LARGE H Urine WBC (Auto) >182 Urine RBC (Auto) >182 Stool Occult Blood NEGATIVE 09/18/17 09/18/17 09:50 09:50 WBC RBC Hgb Hct MCV MCH MCHC RDW Plt Count Phosphorus 3.2 Triglycerides 118 Urine Color Urine Appearance Urine pH Ur Specific [place] Urine Protein Urine Glucose (UA) Urine Ketones Urine Blood Urine Nitrite Ur Leukocyte Esterase Urine WBC (Auto) Urine RBC (Auto) Stool Occult Blood 08/25/17 07:01 NT-Pro-B Natriuret Pep 796 Impressions: Acute Abdomen Series 08/26/17 00:00 IMPRESSION: Gaseous distention of the colon small bowel. Low colonic obstruction in the differential. Abdomen/Pelvis CT 08/31/17 14:14 IMPRESSION: MODERATE FLUID AND GAS DISTENDED SMALL AND LARGE BOWEL LOOPS SUGGESTIVE OF ENTERITIS OR ILEUS. NO OBSTRUCTION OR INFLAMMATORY CHANGE IDENTIFIED. SMALL BILATERAL PLEURAL EFFUSIONS. PERCUTANEOUS GASTROSTOMY TUBE. Barium Enema 09/01/17 00:00 IMPRESSION: No distal colon obstruction. Bowel gas pattern compatible with ileus Guidance Fluoroscopy 09/06/17 00:00 IMPRESSION: SUCCESSFUL PLACEMENT OF A 5 FR DUAL LUMEN 40 CM PICC IN THE LEFT BASILIC VEIN. Interventional Vascular Procedure 09/06/17 00:00 IMPRESSION: SUCCESSFUL PLACEMENT OF A 5 FR DUAL LUMEN 40 CM PICC IN THE LEFT BASILIC VEIN. PICC Line Insertion 09/06/17 00:00 IMPRESSION: SUCCESSFUL PLACEMENT OF A 5 FR DUAL LUMEN 40 CM PICC IN THE LEFT BASILIC VEIN. Abdomen X-Ray 09/11/17 07:00 IMPRESSION: Persistent ileus. KUB X-Ray 09/17/17 10:05 IMPRESSION: NONOBSTRUCTED BOWEL-GAS PATTERN. NO SIGNIFICANT CHANGE FROM PRIOR STUDY. Chest X-Ray 09/17/17 10:06 IMPRESSION: NO ACUTE RADIOGRAPHIC FINDING IN THE CHEST. Assessment & Plan - Diagnosis (1) Acute on chronic respiratory failure with hypoxia and hypercapnia Is this a current diagnosis for this admission?: Yes Plan: Resolved. He is back to his baseline oxygen requirements. This was due to a COPD exacerbation. (2) COPD exacerbation Is this a current diagnosis for this admission?: Yes Plan: Resolved at this point. (3) Ileus Is this a current diagnosis for this admission?: Yes Plan: Resolved. We will keep the patient on a good bowel regimen. (4) UTI (urinary tract infection) due to urinary indwelling Pickard catheter Qualifiers: Indwelling urinary catheter type: indwelling urethral catheter Is this a current diagnosis for this admission?: Yes Plan: He will complete his course of IV antibiotic therapy for Pseudomonas urinary tract infection on 09/20/2017 (5) Dysphagia Is this a current diagnosis for this admission?: Yes Plan: Continue tube feedings with pleasure feeds. I have discussed the risk of aspiration with the patient's family and they do understand that he does enjoy eating pudding and applesauce at times. (6) BPH (benign prostatic hyperplasia) Is this a current diagnosis for this admission?: Yes Plan: Continue indwelling Pickard catheter (7) Expressive aphasia Is this a current diagnosis for this admission?: Yes Plan: He is at his baseline (8) Schizoaffective disorder Is this a current diagnosis for this admission?: Yes Plan: Continue home regimen (9) Coronary artery disease Is this a current diagnosis for this admission?: Yes Plan: Stable no complaints of chest pain. (10) On enteral nutrition Is this a current diagnosis for this admission?: Yes Plan: At this point he is tolerating his tube feedings. (11) Do not resuscitate Is this a current diagnosis for this admission?: Yes - Time Time Spent with patient: 25-34 minutes - Inpatient Certification Medical Necessity: Need for IV Antibiotics - Inpatient hospitalization remains necessary. The patient is completing a course of parenteral antibiotics here in the hospital. He completes his antibiotic therapy on September 20, 2017. If he develops no further complications he can be discharged on 09/21/2017., Other
[2017-09-18] MEDS: NORMAL SALINE 10 ML SDV (AFTER EACH USE) IV PRN (17:45)
[2017-09-19 06:23] LABS: ABSOLUTE EOSINOPHILS # (AUTO) 0.5 10^3/uL (0.0-0.6); ABSOLUTE MONOCYTES (AUTO) 0.7 10^3/uL (0.1-1.4); ABSOLUTE NEUT (AUTO) 2.4 10^3/uL (1.7-8.2); BASOPHILS % (AUTO) 0.6 % (0-2); EOSINOPHILS % (AUTO) 9.3 % (0-6); HEMATOCRIT 34.3 % (37.9-51.0); HEMOGLOBIN 11.3 g/dL (13.5-17.0); LYMPHOCYTES % (AUTO) 35.1 % (13-45); MEAN CORPUSCULAR HEMOGLOBIN 28.6 pg (27.0-33.4); MEAN CORPUSCULAR HGB CONC 32.9 g/dL (32.0-36.0); MEAN CORPUSCULAR VOLUME 87 fl (80-97); MONOCYTES % (AUTO) 12.6 % (3-13); PLATELET COUNT 256 10^3/uL (150-450); RED BLOOD COUNT 3.95 10^6/uL (4.35-5.55); SEGMENTED NEUTROPHILS % (AUTO) 42.4 % (42-78); TOTAL CELLS COUNTED % (AUTO) 100 %; WHITE BLOOD COUNT 5.7 10^3/uL (4.0-10.5)
[2017-09-19] MEDS: MEROPENEM 1 GM in NORMAL SALINE 50 ML IV SCH ×3 (06:33→22:16)
[2017-09-19 06:49] LABS: ANION GAP 8 (5-19); BLOOD UREA NITROGEN 16 mg/dL (7-20); CALCIUM 10.3 mg/dL (8.4-10.2); CARBON DIOXIDE 30 mmol/L (22-30); CHLORIDE 104 mmol/L (98-107); GLUCOSE 104 mg/dL (75-110); SODIUM 142.1 mmol/L (137-145)
[2017-09-19] MEDS: METOCLOPRAMIDE HCL INJ/PF 10 MG/2 ML SDV IV SCH ×3 (06:50→18:38)
[2017-09-19] MEDS: BUDESONIDE/FORMOTEROL 160-4.5 MCG 60 PUFF/6 GM MDI IH SCH ×2 (10:38→22:17)
[2017-09-19] MEDS: ENOXAPARIN SODIUM INJ 80 MG/0.8 ML DISP.SYRIN SUBCUT SCH ×2 (10:38→22:18)
[2017-09-19] MEDS: NORMAL SALINE 10 ML SDV (SCHEDULED) IV SCH ×2 (10:39→22:15)
--- NOTE | 2017-09-19 12:38 | PDOC PROGRESS REPORT ---
Subjective Progress Note for:: 09/19/17 Subjective:: The patient is resting in his bed. He has no complaints that he is able to vocalize. He will not answer questions for me. Review of systems could not be obtained. I spoke to the patient's family members at the bedside. I updated them regarding the plan of care and all of their questions were answered. He does tell me he is having some abdominal pain. He told me that he vomited however the nursing staff states that he had a large bowel movement. Reason For Visit: COPD,EXACERBATION Physical Exam Vital Signs: Temp Pulse Resp BP Pulse Ox 98.9 F 107 H 13 102/73 93 09/19/17 08:00 09/19/17 08:00 09/19/17 08:00 09/19/17 08:00 09/19/17 08:00 Intake & Output 09/18/17 09/19/17 09/20/17 06:59 06:59 06:59 Intake Total 472 400 Output Total 1075 650 Balance -603 -250 Weight 74.7 kg 74.5 kg General appearance: PRESENT: no acute distress, well-developed, well-nourished Head exam: PRESENT: atraumatic Mouth exam: PRESENT: moist, tongue midline Respiratory exam: PRESENT: clear to auscultation eric. ABSENT: rales, rhonchi, wheezes Cardiovascular exam: PRESENT: RRR. ABSENT: diastolic murmur, rubs, systolic murmur GI/Abdominal exam: PRESENT: normal bowel sounds, soft, other - He has PEG tube in place that appears to be working properly no drainage or evidence of infection. ABSENT: tenderness Rectal exam: PRESENT: deferred Extremities exam: ABSENT: calf tenderness, clubbing, pedal edema Neurological exam: PRESENT: alert, awake, oriented to person, oriented to place , CN II-XII grossly intact, aphasic, other - It was difficult to tell whether he was oriented to time or situation.. ABSENT: motor sensory deficit Psychiatric exam: PRESENT: appropriate affect, normal mood. ABSENT: homicidal ideation, suicidal ideation Skin exam: PRESENT: dry, intact, warm. ABSENT: cyanosis, rash Results Laboratory Results: 09/19/17 06:15 09/19/17 06:15 09/18/17 09/19/17 09/19/17 09:50 06:15 06:15 WBC 5.7 RBC 3.95 L Hgb 11.3 L Hct 34.3 L MCV 87 MCH 28.6 MCHC 32.9 RDW 15.0 H Plt Count 256 Seg Neutrophils % 42.4 Lymphocytes % 35.1 Monocytes % 12.6 Eosinophils % 9.3 H Basophils % 0.6 Absolute Neutrophils 2.4 Absolute Lymphocytes 2.0 Absolute Monocytes 0.7 Absolute Eosinophils 0.5 Absolute Basophils 0.0 Sodium 142.1 Potassium 4.0 Chloride 104 Carbon Dioxide 30 Anion Gap 8 BUN 16 Creatinine 0.93 Est GFR ( Amer) > 60 Est GFR (Non-Af Amer) > 60 Glucose 104 Calcium 10.3 H Phosphorus Magnesium 1.6 Triglycerides 118 09/19/17 06:15 WBC RBC Hgb Hct MCV MCH MCHC RDW Plt Count Seg Neutrophils % Lymphocytes % Monocytes % Eosinophils % Basophils % Absolute Neutrophils Absolute Lymphocytes Absolute Monocytes Absolute Eosinophils Absolute Basophils Sodium Potassium Chloride Carbon Dioxide Anion Gap BUN Creatinine Est GFR ( Amer) Est GFR (Non-Af Amer) Glucose Calcium Phosphorus 2.8 Magnesium Triglycerides 08/25/17 07:01 NT-Pro-B Natriuret Pep 796 Impressions: Acute Abdomen Series 08/26/17 00:00 IMPRESSION: Gaseous distention of the colon small bowel. Low colonic obstruction in the differential. Abdomen/Pelvis CT 08/31/17 14:14 IMPRESSION: MODERATE FLUID AND GAS DISTENDED SMALL AND LARGE BOWEL LOOPS SUGGESTIVE OF ENTERITIS OR ILEUS. NO OBSTRUCTION OR INFLAMMATORY CHANGE IDENTIFIED. SMALL BILATERAL PLEURAL EFFUSIONS. PERCUTANEOUS GASTROSTOMY TUBE. Barium Enema 09/01/17 00:00 IMPRESSION: No distal colon obstruction. Bowel gas pattern compatible with ileus Guidance Fluoroscopy 09/06/17 00:00 IMPRESSION: SUCCESSFUL PLACEMENT OF A 5 FR DUAL LUMEN 40 CM PICC IN THE LEFT BASILIC VEIN. Interventional Vascular Procedure 09/06/17 00:00 IMPRESSION: SUCCESSFUL PLACEMENT OF A 5 FR DUAL LUMEN 40 CM PICC IN THE LEFT BASILIC VEIN. PICC Line Insertion 09/06/17 00:00 IMPRESSION: SUCCESSFUL PLACEMENT OF A 5 FR DUAL LUMEN 40 CM PICC IN THE LEFT BASILIC VEIN. Abdomen X-Ray 09/11/17 07:00 IMPRESSION: Persistent ileus. KUB X-Ray 09/17/17 10:05 IMPRESSION: NONOBSTRUCTED BOWEL-GAS PATTERN. NO SIGNIFICANT CHANGE FROM PRIOR STUDY. Chest X-Ray 09/17/17 10:06 IMPRESSION: NO ACUTE RADIOGRAPHIC FINDING IN THE CHEST. Assessment & Plan - Diagnosis (1) Acute on chronic respiratory failure with hypoxia and hypercapnia Is this a current diagnosis for this admission?: Yes Plan: Resolved. He is back to his baseline oxygen requirements. This was due to a COPD exacerbation. (2) COPD exacerbation Is this a current diagnosis for this admission?: Yes Plan: Resolved at this point. (3) Ileus Is this a current diagnosis for this admission?: Yes Plan: Resolved. We will keep the patient on a good bowel regimen. (4) UTI (urinary tract infection) due to urinary indwelling Pickard catheter Qualifiers: Indwelling urinary catheter type: indwelling urethral catheter Is this a current diagnosis for this admission?: Yes Plan: The patient will complete his IV meropenem tomorrow. He will be discharged on . (5) Dysphagia Is this a current diagnosis for this admission?: Yes (6) BPH (benign prostatic hyperplasia) Is this a current diagnosis for this admission?: Yes (7) Expressive aphasia Is this a current diagnosis for this admission?: Yes (8) Schizoaffective disorder Is this a current diagnosis for this admission?: Yes (9) Coronary artery disease Is this a current diagnosis for this admission?: Yes (10) On enteral nutrition Is this a current diagnosis for this admission?: Yes (11) Do not resuscitate Is this a current diagnosis for this admission?: Yes - Time Time Spent with patient: 25-34 minutes - Inpatient Certification Medical Necessity: Need for IV Antibiotics - Inpatient hospitalization remains necessary for the patient to finish his parenteral antibiotics here in the hospital. He will be discharged home if nothing else changes on September 21, 2017, Other
[2017-09-19] MEDS: BISACODYL 10 MG SUPP.RECT PR SCH (12:56)
[2017-09-20] MEDS: NORMAL SALINE 10 ML SDV (AFTER EACH USE) IV PRN (00:25)
[2017-09-20] MEDS: METOCLOPRAMIDE HCL INJ/PF 10 MG/2 ML SDV IV SCH ×4 (00:25→18:35)
[2017-09-20] MEDS: MEROPENEM 1 GM in NORMAL SALINE 50 ML IV SCH ×3 (06:36→21:36)
[2017-09-20 07:13] LABS: HEMATOCRIT 34.7 % (37.9-51.0); HEMOGLOBIN 11.3 g/dL (13.5-17.0); MEAN CORPUSCULAR HEMOGLOBIN 28.4 pg (27.0-33.4); MEAN CORPUSCULAR HGB CONC 32.5 g/dL (32.0-36.0); MEAN CORPUSCULAR VOLUME 87 fl (80-97); PLATELET COUNT 271 10^3/uL (150-450); RED BLOOD COUNT 3.99 10^6/uL (4.35-5.55); RED CELL DISTRIBUTION WIDTH 14.6 % (11.5-14.0); WHITE BLOOD COUNT 6.2 10^3/uL (4.0-10.5)
[2017-09-20 07:25] LABS: ANION GAP 6 (5-19); BLOOD UREA NITROGEN 16 mg/dL (7-20); CALCIUM 10.4 mg/dL (8.4-10.2); CARBON DIOXIDE 31 mmol/L (22-30); CHLORIDE 106 mmol/L (98-107); GLUCOSE 95 mg/dL (75-110); POTASSIUM 4.6 mmol/L (3.6-5.0); SODIUM 143.4 mmol/L (137-145)
[2017-09-20] MEDS ORDERED: NORMAL SALINE 1000 ML 1,000 ML IV PRN (07:32)
[2017-09-20] MEDS: BUDESONIDE/FORMOTEROL 160-4.5 MCG 60 PUFF/6 GM MDI IH SCH ×2 (10:33→21:35)
[2017-09-20] MEDS: NORMAL SALINE 10 ML SDV (SCHEDULED) IV SCH ×2 (10:34→21:36)
[2017-09-20] MEDS: ENOXAPARIN SODIUM INJ 80 MG/0.8 ML DISP.SYRIN SUBCUT SCH ×2 (10:34→21:35)
[2017-09-20] MEDS: BISACODYL 10 MG SUPP.RECT PR SCH (12:42)
--- NOTE | 2017-09-20 14:46 | PDOC PROGRESS REPORT ---
Subjective Progress Note for:: 09/20/17 Subjective:: The patient is resting in his bed. His family is at the bedside. I spent quite some time discussing the plan of care with the patient's family and all of the questions were answered. The patient has a little bit of a cough but he has had this all along. His white count is normal and he has not been running fevers. Again I discussed the risk of aspiration with feeding the patient and they are aware that he could develop pneumonia. They do state that the patient likes eating and that these are pleasure feeds. In any event the patient indicates to me that he is feeling well. He has no complaints that he is able to vocalize. The tentative plan is for discharge tomorrow with home health services. Reason For Visit: COPD,EXACERBATION Physical Exam Vital Signs: Temp Pulse Resp BP Pulse Ox 98.7 F 108 H 18 130/86 H 100 09/20/17 08:00 09/20/17 08:00 09/20/17 08:00 09/20/17 08:00 09/20/17 08:00 Intake & Output 09/19/17 09/20/17 09/21/17 06:59 06:59 06:59 Intake Total 400 1423 975 Output Total 650 550 Balance -250 873 975 Weight 74.5 kg 75 kg General appearance: PRESENT: no acute distress, well-developed, well-nourished Head exam: PRESENT: atraumatic, normocephalic Mouth exam: PRESENT: moist, tongue midline Respiratory exam: PRESENT: rhonchi - He has some scattered rhonchi anteriorly. ABSENT: rales, wheezes Cardiovascular exam: PRESENT: RRR. ABSENT: diastolic murmur, rubs, systolic murmur GI/Abdominal exam: PRESENT: normal bowel sounds, soft. ABSENT: distended, guarding, mass, organolmegaly, rebound, tenderness Rectal exam: PRESENT: deferred Extremities exam: PRESENT: full ROM. ABSENT: calf tenderness, clubbing, pedal edema Musculoskeletal exam: ABSENT: ambulatory Psychiatric exam: PRESENT: appropriate affect, normal mood. ABSENT: homicidal ideation, suicidal ideation Skin exam: PRESENT: dry, intact, warm. ABSENT: cyanosis, rash Results Laboratory Results: 09/20/17 06:30 09/20/17 06:30 09/20/17 09/20/17 06:30 06:30 WBC 6.2 RBC 3.99 L Hgb 11.3 L Hct 34.7 L MCV 87 MCH 28.4 MCHC 32.5 RDW 14.6 H Plt Count 271 Sodium 143.4 Potassium 4.6 Chloride 106 Carbon Dioxide 31 H Anion Gap 6 BUN 16 Creatinine 0.97 Est GFR ( Amer) > 60 Est GFR (Non-Af Amer) > 60 Glucose 95 Calcium 10.4 H Magnesium 1.6 08/25/17 07:01 NT-Pro-B Natriuret Pep 796 Impressions: Acute Abdomen Series 08/26/17 00:00 IMPRESSION: Gaseous distention of the colon small bowel. Low colonic obstruction in the differential. Abdomen/Pelvis CT 08/31/17 14:14 IMPRESSION: MODERATE FLUID AND GAS DISTENDED SMALL AND LARGE BOWEL LOOPS SUGGESTIVE OF ENTERITIS OR ILEUS. NO OBSTRUCTION OR INFLAMMATORY CHANGE IDENTIFIED. SMALL BILATERAL PLEURAL EFFUSIONS. PERCUTANEOUS GASTROSTOMY TUBE. Barium Enema 09/01/17 00:00 IMPRESSION: No distal colon obstruction. Bowel gas pattern compatible with ileus Guidance Fluoroscopy 09/06/17 00:00 IMPRESSION: SUCCESSFUL PLACEMENT OF A 5 FR DUAL LUMEN 40 CM PICC IN THE LEFT BASILIC VEIN. Interventional Vascular Procedure 09/06/17 00:00 IMPRESSION: SUCCESSFUL PLACEMENT OF A 5 FR DUAL LUMEN 40 CM PICC IN THE LEFT BASILIC VEIN. PICC Line Insertion 09/06/17 00:00 IMPRESSION: SUCCESSFUL PLACEMENT OF A 5 FR DUAL LUMEN 40 CM PICC IN THE LEFT BASILIC VEIN. Abdomen X-Ray 09/11/17 07:00 IMPRESSION: Persistent ileus. KUB X-Ray 09/17/17 10:05 IMPRESSION: NONOBSTRUCTED BOWEL-GAS PATTERN. NO SIGNIFICANT CHANGE FROM PRIOR STUDY. Chest X-Ray 09/17/17 10:06 IMPRESSION: NO ACUTE RADIOGRAPHIC FINDING IN THE CHEST. Assessment & Plan - Diagnosis (1) Acute on chronic respiratory failure with hypoxia and hypercapnia Is this a current diagnosis for this admission?: Yes Plan: Resolved. He is back to his baseline oxygen requirements. This was due to a COPD exacerbation. The patient also has issues with chronic aspiration (2) COPD exacerbation Is this a current diagnosis for this admission?: Yes Plan: Resolved at this point. (3) Ileus Is this a current diagnosis for this admission?: Yes Plan: Resolved. We will keep the patient on a good bowel regimen. (4) UTI (urinary tract infection) due to urinary indwelling Pickard catheter Qualifiers: Indwelling urinary catheter type: indwelling urethral catheter Is this a current diagnosis for this admission?: Yes Plan: The patient will complete his IV meropenem today. He will be discharged on . (5) Dysphagia Is this a current diagnosis for this admission?: Yes Plan: Continue tube feedings with pleasure feeds. I have discussed the risk of aspiration with the patient's family and they do understand that they do state that he does enjoy eating pudding and applesauce at times. (6) BPH (benign prostatic hyperplasia) Is this a current diagnosis for this admission?: Yes Plan: Continue indwelling Pickard catheter. He has an appointment with Dr. Holloway at the end of the month to have a suprapubic catheter placed (7) Expressive aphasia Is this a current diagnosis for this admission?: Yes Plan: He is at his baseline (8) Schizoaffective disorder Is this a current diagnosis for this admission?: Yes Plan: Continue home regimen (9) Coronary artery disease Is this a current diagnosis for this admission?: Yes Plan: Stable no complaints of chest pain. (10) On enteral nutrition Is this a current diagnosis for this admission?: Yes (11) Do not resuscitate Is this a current diagnosis for this admission?: Yes - Time Time Spent with patient: 15-24 minutes - Inpatient Certification Medical Necessity: Need for IV Antibiotics - Inpatient hospitalization, Other - Inpatient hospitalization remains necessary. The patient will finish his IV antibiotics today. If he remained stable overnight he will be discharged in the morning.
[2017-09-20 19:21] LABS: APPEARANCE,URINE CLOUDY; BILIRUBIN,URINE NEGATIVE (NEGATIVE); COLOR,URINE YELLOW; GLUCOSE, URINE NEGATIVE (NEGATIVE); KETONES,URINE NEGATIVE (NEGATIVE); LEUKOCYTE ESTERASE,URINE LARGE (NEGATIVE); NITRITE,URINE NEGATIVE (NEGATIVE); PROTEIN,URINE NEGATIVE (NEGATIVE); URINE SPECIFIC GRAVITY 1.009; UROBILINOGEN,URINE NEGATIVE mg/dL (<2.0)
[2017-09-21] MEDS: METOCLOPRAMIDE HCL INJ/PF 10 MG/2 ML SDV IV SCH ×4 (00:05→19:27)
[2017-09-21] MEDS: MEROPENEM 1 GM in NORMAL SALINE 50 ML IV SCH (05:40)
[2017-09-21 05:55] LABS: ANION GAP 6 (5-19); BLOOD UREA NITROGEN 14 mg/dL (7-20); CALCIUM 9.6 mg/dL (8.4-10.2); CARBON DIOXIDE 28 mmol/L (22-30); CHLORIDE 108 mmol/L (98-107); GLUCOSE 90 mg/dL (75-110); POTASSIUM 4.3 mmol/L (3.6-5.0); SODIUM 142.1 mmol/L (137-145)
[2017-09-21] MEDS: BUDESONIDE/FORMOTEROL 160-4.5 MCG 60 PUFF/6 GM MDI IH SCH (10:39)
[2017-09-21] MEDS: NORMAL SALINE 10 ML SDV (SCHEDULED) IV SCH (10:40)
[2017-09-21] MEDS: ENOXAPARIN SODIUM INJ 80 MG/0.8 ML DISP.SYRIN SUBCUT SCH (10:41)
--- NOTE | 2017-09-21 10:47 | PDOC TRANSFER SUMMARY ---
General - Admit/Disc Date/PCP Admission Date/Primary Care Provider: 08/24/17 16:46 FIDEL HANDY DO Urologist: Dr Holloway Discharge Date: 09/21/17 - Discharge Diagnosis (1) Acute on chronic respiratory failure with hypoxia and hypercapnia Is this a current diagnosis for this admission?: Yes Summary: Resolved. This was secondary to a COPD exacerbation (2) COPD exacerbation Is this a current diagnosis for this admission?: Yes Summary: Resolved. He is doing well on the day of discharge. (3) Ileus Is this a current diagnosis for this admission?: Yes Summary: Resolved. Continue Reglan and daily suppositories at discharge. (4) UTI (urinary tract infection) due to urinary indwelling Pickard catheter Is this a current diagnosis for this admission?: Yes Summary: He has chronic Pseudomonas which may be colonization versus true infection. He will follow-up with his urologist Dr. Holloway at already scheduled appointment for suprapubic catheter placement. (5) Dysphagia Is this a current diagnosis for this admission?: Yes Summary: He completed a course of IV meropenem. The patient has known aspiration issues. I have discussed with the family that the safest way to feed him is just to simply continue his tube feedings. The patient does enjoy pleasure feeds with pured foods. The family understands that he is at higher risk of aspiration. At this point no evidence of aspiration pneumonia on the day of discharge. (6) BPH (benign prostatic hyperplasia) Is this a current diagnosis for this admission?: Yes Summary: Continue Flomax (7) Expressive aphasia Is this a current diagnosis for this admission?: Yes Summary: Secondary to CVA (8) Schizoaffective disorder Is this a current diagnosis for this admission?: Yes Summary: Stable (9) Coronary artery disease Is this a current diagnosis for this admission?: Yes Summary: He will continue his home regimen via his PEG tube (10) On enteral nutrition Is this a current diagnosis for this admission?: Yes Summary: He is on Jevity 1.2 at goal rate of 40 mL's an hour. He will receive 200 mL free water flushes every 4 hours (11) Do not resuscitate Is this a current diagnosis for this admission?: Yes - Additional Information Resuscitation Status: Do Not Resuscitate Discharge Diet: Tube Feeding (Comments) - Jevity 1.2 at 40 mL/h. 200 cc free water flushes 200 mL q4h Discharge Activity: Bedrest, Supervised Activity Prescriptions: Metoclopramide HCl [Reglan Oral Soln 10 mg/10 ml Udcup] 10 mg PEG Q6H #1200 ml Home Medications: Acetaminophen [Tylenol 325 mg Tablet] 650 mg PEG Q6HP PRN 08/24/17 Aspirin [Aspirin 325 mg Tablet] 325 mg PEG DAILY 08/24/17 Atorvastatin Calcium [Lipitor 40 mg Tablet] 40 mg PEG QHS 08/24/17 Budesonide/Formoterol Fumarate [Symbicort 160-4.5 Mcg Inhaler] 2 puff PO Q12 02/01 Escitalopram Oxalate [Lexapro 10 mg Tablet] 10 mg PEG DAILY 08/24/17 Finasteride [Proscar 5 mg Tablet] 5 mg PEG DAILY 08/24/17 Insulin Lispro [Humalog Insulin (Lispro) 100 unit/mL] 0 unit SQ .SLIDING SCALE 08/24/17 Ipratropium/Albuterol Sulfate [Iprat-Albut 0.5-3(2.5) mg/3 ml] 3 ml NEB Q6 08/24 Lansoprazole [Prevacid 30 mg Odt Tablet] 30 mg PEG Q6AM 08/24/17 Metoprolol Tartrate [Lopressor 25 mg Tablet] 12.5 mg PEG Q12 08/24/17 Polyethylene Glycol 3350 [Miralax Powder 17 gm/Packet] 17 gm PEG DAILY 08/24/17 Rivaroxaban [Xarelto 15 mg Tablet] 15 mg PEG DAILY 08/24/17 Tamsulosin HCl [Flomax 0.4 mg Cap.sr] 0.4 mg PEG DAILY 08/24/17 Acetaminophen [Tylenol 325 mg Tablet] 650 mg PO Q6HP PRN tablet 09/21/17 Albuterol Sulfate [Ventolin 0.083% Neb 2.5 mg/3 mL Ampul] 2.5 mg NEB RTQ3HP PRN vial.neb 09/21/17 Bisacodyl [Dulcolax 10 mg Supp.rect] 10 mg VT NOON supp.rect 09/21/17 Metoclopramide HCl [Reglan Oral Soln 10 mg/10 ml Udcup] 10 mg PEG Q6H #1200 ml 09/21/17 Simethicone [Mylicon 80 mg Chewable Tablet] 80 mg PO Q6HP PRN tab.chew History of Present Illness Admission Date/PCP: 08/24/17 16:46 FIDEL HANDY DO History of Present Illness: DALY PORTILLO SR is a 72 year old male Hospital Course Hospital Course: Please see complete medical record for details. This is been a prolonged hospitalization and this will be a brief summary. The patient is a 72-year-old -[place] male who resides at a local detention facility. 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 He has dysphagia requiring PEG tube placement. The patient presented to the emergency room with increased shortness of breath and tachypnea. He was found to be having a COPD exacerbation as well as acute hypoxic and hypercapnic respiratory failure. The patient was admitted to the hospital started on IV steroids and antibiotics. Over the course of the hospitalization his COPD exacerbation has resolved and he is doing well from a respiratory standpoint. His hospitalization has been complicated by the development of an ileus. He was followed closely by general surgery and fortunately his ileus eventually resolved. His tube feedings were then resumed. The patient is requiring a daily suppository to have a bowel movement but since that time he is doing fairly well. He will occasionally have some abdominal pain. He has been placed on 10 mg of Reglan every 6 hours and is tolerating his tube feedings at the time of discharge. Also the patient's hospitalization was complicated by the development of a UTI. He does have a chronic Pickard catheter in place. This UTI was a result of his Pickard catheter that was present at the time of admission. He has Pseudomonas growing from his urine and he did complete a course of IV meropenem during this hospitalization. He is scheduled at the end of this month to see Dr. Holloway from [facility] urology. At that appointment he is supposed to be considered for a suprapubic catheter placement which I do believe is a good idea as he has had some erosion of the penis from the chronic indwelling Pickard. At this point it is felt that the patient is stable to be discharged back to his detention facility. His tube feedings are at goal rate and he is tolerating them well. The family is feeding him pured pleasure feeds. They are aware of the increased risk of aspiration. He has no evidence of pneumonia at the time of discharge. At this point maximum hospital benefit has been reached. The patient will be discharged to his skilled facility today in stable condition. Physical Exam Vital Signs: Temp Pulse Resp BP Pulse Ox 98.0 F 100 19 111/76 97 09/21/17 07:32 09/21/17 07:32 09/21/17 07:32 09/21/17 07:32 09/21/17 07:32 Intake & Output 09/20/17 09/21/17 09/22/17 06:59 06:59 06:59 Intake Total 1423 7221 Output Total 550 1300 Balance 873 5921 Weight 75 kg 75.9 kg General appearance: PRESENT: no acute distress, well-developed, well-nourished Head exam: PRESENT: atraumatic, normocephalic Eye exam: PRESENT: conjunctiva pink, EOMI, PERRLA. ABSENT: scleral icterus Ear exam: PRESENT: normal external ear exam Neck exam: ABSENT: carotid bruit, JVD, lymphadenopathy, thyromegaly Respiratory exam: PRESENT: other - He has some scattered coarse rhonchi which seems to be upper airway congestion. Cardiovascular exam: PRESENT: RRR. ABSENT: diastolic murmur, rubs, systolic murmur Pulses: PRESENT: normal dorsalis pedis pul Vascular exam: PRESENT: normal capillary refill GI/Abdominal exam: PRESENT: normal bowel sounds, soft, other - He has a PEG tube in place receiving feedings without difficulty.. ABSENT: distended, guarding, mass, organolmegaly, rebound, tenderness Rectal exam: PRESENT: deferred Gentrourinary exam: PRESENT: indwelling catheter Extremities exam: PRESENT: full ROM. ABSENT: calf tenderness, clubbing, pedal edema Musculoskeletal exam: ABSENT: ambulatory Neurological exam: PRESENT: alert, awake, aphasic, other - I cannot assess his orientation as he is aphasic. Psychiatric exam: PRESENT: appropriate affect, normal mood. ABSENT: homicidal ideation, suicidal ideation Skin exam: PRESENT: dry, intact, warm. ABSENT: cyanosis, rash Results Laboratory Results: 09/20/17 06:30 09/21/17 04:40 09/20/17 09/21/17 18:45 04:40 Sodium 142.1 Potassium 4.3 Chloride 108 H Carbon Dioxide 28 Anion Gap 6 BUN 14 Creatinine 0.81 Est GFR ( Amer) > 60 Est GFR (Non-Af Amer) > 60 Glucose 90 Calcium 9.6 Magnesium 1.7 Urine Color YELLOW Urine Appearance CLOUDY Urine pH 7.0 Ur Specific [place] 1.009 Urine Protein NEGATIVE Urine Glucose (UA) NEGATIVE Urine Ketones NEGATIVE Urine Blood NEGATIVE Urine Nitrite NEGATIVE Ur Leukocyte Esterase LARGE H Urine WBC (Auto) >182 Urine RBC (Auto) 8 08/25/17 07:01 NT-Pro-B Natriuret Pep 796 Impressions: Acute Abdomen Series 08/26/17 00:00 IMPRESSION: Gaseous distention of the colon small bowel. Low colonic obstruction in the differential. Abdomen/Pelvis CT 08/31/17 14:14 IMPRESSION: MODERATE FLUID AND GAS DISTENDED SMALL AND LARGE BOWEL LOOPS SUGGESTIVE OF ENTERITIS OR ILEUS. NO OBSTRUCTION OR INFLAMMATORY CHANGE IDENTIFIED. SMALL BILATERAL PLEURAL EFFUSIONS. PERCUTANEOUS GASTROSTOMY TUBE. Barium Enema 09/01/17 00:00 IMPRESSION: No distal colon obstruction. Bowel gas pattern compatible with ileus Guidance Fluoroscopy 09/06/17 00:00 IMPRESSION: SUCCESSFUL PLACEMENT OF A 5 FR DUAL LUMEN 40 CM PICC IN THE LEFT BASILIC VEIN. Interventional Vascular Procedure 09/06/17 00:00 IMPRESSION: SUCCESSFUL PLACEMENT OF A 5 FR DUAL LUMEN 40 CM PICC IN THE LEFT BASILIC VEIN. PICC Line Insertion 09/06/17 00:00 IMPRESSION: SUCCESSFUL PLACEMENT OF A 5 FR DUAL LUMEN 40 CM PICC IN THE LEFT BASILIC VEIN. Abdomen X-Ray 09/11/17 07:00 IMPRESSION: Persistent ileus. KUB X-Ray 09/17/17 10:05 IMPRESSION: NONOBSTRUCTED BOWEL-GAS PATTERN. NO SIGNIFICANT CHANGE FROM PRIOR STUDY. Chest X-Ray 09/17/17 10:06 IMPRESSION: NO ACUTE RADIOGRAPHIC FINDING IN THE CHEST. Transfer Plan - Disposition Transfer Plan: He will be transitioned back to his skilled facility today in stable condition. - Time Spent with Patient Time spent with patient: Greater than 30 Minutes Qualifiers - * PATIENT BEING DISCHARGED WITH ANY OF THE FOLLOWING DIAGNOSIS: No Plan Time Spent: Greater than 30 Minutes
[2017-09-21] MEDS: BISACODYL 10 MG SUPP.RECT PR SCH (11:40)
[2017-09-21 16:13] VITALS: BP 129/76
== END 2017-09-21 19:47 | DRG 190 ==
LOC: ER 10:30 → EH 16:46 → 4N 20:08
PROVIDERS: ADMIT Internal Medicine; ATTEND Surgery
PROC: 3E0F73Z Introduction of Anti-inflammatory into Respiratory Tract, Via Natural or Artificial Opening (ICD-10-PCS; 2017-08-24)
PROC: 02HV33Z Insertion of Infusion Device into Superior Vena Cava, Percutaneous Approach (ICD-10-PCS; principal; 2017-08-26)
PROC: B548ZZA Ultrasonography of Superior Vena Cava, Guidance (ICD-10-PCS; 2017-08-26)
PROC: 3E0436Z Introduction of Nutritional Substance into Central Vein, Percutaneous Approach (ICD-10-PCS; 2017-09-02)
PROC: 02HV33Z Insertion of Infusion Device into Superior Vena Cava, Percutaneous Approach (ICD-10-PCS; 2017-09-06)
PROC: B548ZZA Ultrasonography of Superior Vena Cava, Guidance (ICD-10-PCS; 2017-09-06)
DX: J44.1 Chronic obstructive pulmonary disease with (acute) exacerbation (principal); J96.01 Acute respiratory failure with hypoxia; N39.0 Urinary tract infection, site not specified; T83.511A Infection and inflammatory reaction due to indwelling urethral catheter, initial encounter; K56.7 Ileus, unspecified; I69.354 Hemiplegia and hemiparesis following cerebral infarction affecting left non-dominant side; T83.89XA Other specified complication of genitourinary prosthetic devices, implants and grafts, initial encounter; I50.22 Chronic systolic (congestive) heart failure; N36.9 Urethral disorder, unspecified; F25.9 Schizoaffective disorder, unspecified; E83.39 Other disorders of phosphorus metabolism; I11.0 Hypertensive heart disease with heart failure; I25.10 Atherosclerotic heart disease of native coronary artery without angina pectoris; K59.04 Chronic idiopathic constipation; Z93.1 Gastrostomy status; N40.0 Benign prostatic hyperplasia without lower urinary tract symptoms; E87.6 Hypokalemia; I69.320 Aphasia following cerebral infarction; I69.391 Dysphagia following cerebral infarction; R13.10 Dysphagia, unspecified; E11.9 Type 2 diabetes mellitus without complications; B96.5 Pseudomonas (aeruginosa) (mallei) (pseudomallei) as the cause of diseases classified elsewhere; K31.89 Other diseases of stomach and duodenum; Y84.6 Urinary catheterization as the cause of abnormal reaction of the patient, or of later complication, without mention of misadventure at the time of the procedure; Z74.01 Bed confinement status; I25.2 Old myocardial infarction; Z79.01 Long term (current) use of anticoagulants; Z87.891 Personal history of nicotine dependence; Z66 Do not resuscitate; Z82.49 Family history of ischemic heart disease and other diseases of the circulatory system; Z88.1 Allergy status to other antibiotic agents; Z79.82 Long term (current) use of aspirin; Z79.84 Long term (current) use of oral hypoglycemic drugs
CPT/HCPCS: 36415; 36569; 71045; 74018; 74019; 74022; 74176; 74270; 76937; 77001; 80048; 80053; 80069; 80076; 81001; 82272; 82803; 82962; 83036; 83605; 83735; 83880; 84100; 84134; 84443; 84478; 85025; 85027; 85610; 87040; 87077; 87086; 87088; 87186; 93005; 93010; 94640; 96361; 96365; 96375; 99291; C1751; G8996-GN; G8997-GN; J0696; J0713; J1335; J1642; J1650; J2185; J2543; J2765; J2920; J2930; J3370; J3475; J3480; J3490; J7030; J7040; J7060; J7512; J7620; S0164

== ENCOUNTER 2017-12-11 21:00 | Emergency (ER) | payer MEDICARE, MEDICAID ==
--- NOTE | 2017-12-11 23:34 | ER Document Report ---
ED General - General Chief Complaint: Problem with Urinary Catheter Stated Complaint: CATHETER ISSUE Time Seen by Provider: 12/11/17 21:36 Cannot obtain history due to: Mentally challenged Notes: Patient is a 72-year-old male with a suprapubic catheter in place, G-tube in place, chronically debilitated who presents with no urine output from suprapubic catheter. He has been passing urine from his penis. shelter apparently was unable to flush the catheter so he was referred to the emergency department. The catheter was last replaced in the of this month. Family denies any comp occasions with the catheter until this point. No additional history can be obtained secondary to patient's mental status at baseline. TRAVEL OUTSIDE OF THE [place] IN LAST 30 DAYS: No - Related Data Allergies/Adverse Reactions: levofloxacin Adverse Reaction (Verified 06/17/17 05:44) Hives Past Medical History - General Information source: Relative Cannot obtain history due to: Mentally challenged - Social History Smoking Status: Never Smoker Lives with: [facility] Family History: CAD, COPD, Hypertension Patient has suicidal ideation: No Patient has homicidal ideation: No - Past Medical History Cardiac Medical History: Reports: Hx Congestive Heart Failure, Hx Heart Attack, Hx Hypertension Pulmonary Medical History: Reports: Hx COPD Neurological Medical History: Reports: Hx Cerebrovascular Accident. Denies: Hx Seizures Endocrine Medical History: Reports: Hx Diabetes Mellitus Type 2 Renal/ Medical History: Denies: Hx Peritoneal Dialysis Psychiatric Medical History: Reports: Hx Depression, Hx Schizoaffective Disorder Past Surgical History: Reports: Other - ? previous TURP - Immunizations Hx Pneumococcal Vaccination: 04/27/16 Review of Systems - Review of Systems -: Yes ROS unobtainable due to patient's medical condition Physical Exam - Vital signs Vitals: Temp Resp Pulse Ox 98.1 F 18 96 12/11/17 21:13 12/11/17 21:13 12/11/17 21:13 Interpretation: Normal Notes: PHYSICAL EXAMINATION: GENERAL: Chronically ill in appearance but in no acute distress HEAD: Atraumatic, normocephalic. EYES: sclera anicteric, conjunctiva are normal. ENT: nares patent, oropharynx clear without exudates. Moderately dry mucous membranes. NECK: supple without lymphadenopathy LUNGS: Breath sounds clear to auscultation bilaterally and equal. No wheezes rales or rhonchi. HEART: Regular rate and rhythm without murmurs ABDOMEN: Soft, no focal tenderness to palpation. Catheter in place without surrounding erythema or drainage. EXTREMITIES: no pitting or edema. No cyanosis. PSYCH: Nonverbal SKIN: Warm, Dry, normal turgor, no rashes or lesions noted. Course - Re-evaluation Re-evalutation: 12/11/17 23:32 Patient presents with a clogged suprapubic catheter. The catheter was exchanged without difficulty. Flow of urine was then established. No additional concerns or complaints. At this time will discharge with return precautions and follow-up recommendations. Verbal discharge instructions given a the bedside and opportunity for questions given. Medication warnings reviewed. Family is in agreement with this plan and has verbalized understanding of return precautions and the need for primary care follow-up in the next 24-72 hours. - Vital Signs Vital signs: Temp Pulse Resp BP Pulse Ox 98.6 F 106 H 26 H 114/82 97 12/12/17 00:59 12/12/17 00:13 12/12/17 01:00 12/12/17 00:59 12/12/17 01:00 Discharge - Discharge Clinical Impression: Suprapubic catheter dysfunction Qualifiers: Encounter type: initial encounter Qualified Code(s): T83.010A - Breakdown ( mechanical) of cystostomy catheter, initial encounter Condition: Good Disposition: HOME, SELF-CARE Additional Instructions: Your catheter was exchanged. Return for any additional concerns Referrals: FIDEL HANDY DO [Primary Care Provider] - Follow up as needed
[2017-12-12 01:05] VITALS: BP 114/82
== END 2017-12-12 01:06 | disposition home or self-care (01) ==
LOC: ER 21:00
DX: T83.010A Breakdown (mechanical) of cystostomy catheter, initial encounter (principal); X58.XXXA Exposure to other specified factors, initial encounter; J44.9 Chronic obstructive pulmonary disease, unspecified; E11.9 Type 2 diabetes mellitus without complications; I50.9 Heart failure, unspecified; I11.0 Hypertensive heart disease with heart failure; I25.2 Old myocardial infarction; Z86.73 Personal history of transient ischemic attack (TIA), and cerebral infarction without residual deficits
CPT/HCPCS: 99284

== ENCOUNTER 2017-12-13 07:00 | Emergency (ER) | payer MEDICARE, MEDICAID ==
--- NOTE | 2017-12-13 07:51 | ER Document Report ---
ED General - General Chief Complaint: Needs Urinary Cath Replaced Stated Complaint: ABDOMINAL PAIN Time Seen by Provider: 12/13/17 07:15 TRAVEL OUTSIDE OF THE [place] IN LAST 30 DAYS: No - HPI Notes: Patient is a 72-year-old male with a history of suprapubic catheter in place, G- tube in place, chronically debilitated who presents to the ED for replacement of his suprapubic catheter that came out during a replacement sometime this morning. Patient was just here yesterday for replacement of his suprapubic catheter as it was clogged at that time. Patient does still have some urine passing from his penis. Otherwise he has been eating and drinking without difficulties. He is having normal bowel movements. No other concerns or complaints. Patient was scheduled to see a urologist today which his family believes was Dr. Hart. Per family as well: Denies any headache, fever, URI, sore throat, chest pain, palpitations, syncope, cough, shortness of breath, wheeze, dyspnea, abdominal pain, nausea/vomiting/diarrhea, or rash. - Related Data Allergies/Adverse Reactions: levofloxacin Adverse Reaction (Verified 12/13/17 08:41) Hives Past Medical History - Social History Smoking Status: Unknown if Ever Smoked Family History: CAD, COPD, Hypertension Patient has suicidal ideation: No Patient has homicidal ideation: No - Past Medical History Cardiac Medical History: Reports: Hx Congestive Heart Failure, Hx Heart Attack, Hx Hypertension Pulmonary Medical History: Reports: Hx COPD Neurological Medical History: Reports: Hx Cerebrovascular Accident. Denies: Hx Seizures Endocrine Medical History: Reports: Hx Diabetes Mellitus Type 2 Renal/ Medical History: Denies: Hx Peritoneal Dialysis Psychiatric Medical History: Reports: Hx Depression, Hx Schizoaffective Disorder Past Surgical History: Reports: Other - ? previous TURP - Immunizations Hx Pneumococcal Vaccination: 04/27/16 Review of Systems - Review of Systems -: Yes All other systems reviewed and negative Physical Exam - Vital signs Vitals: Pulse Ox 97 12/13/17 07:07 - Notes Notes: PHYSICAL EXAMINATION: GENERAL: Well-appearing, well-nourished and in no acute distress. LUNGS: Breath sounds clear to auscultation bilaterally and equal. No wheezes rales or rhonchi. HEART: Regular rate and rhythm without murmurs, rubs, gallops. ABDOMEN: Soft, nontender, nondistended abdomen. No guarding, no rebound. No masses appreciated. Normal bowel sounds present. No CVA tenderness bilaterally. PEG tube in place. Suprapubic catheter dislodged. No purulence, surrounding erythema, streaks, or indurated tissue. Musculoskeletal: FROM to passive/active. Strength 5+/5. Extremities: No cyanosis, clubbing, or edema b/l. Peripheral pulses 2+. Capillary refill less than 3 seconds. NEUROLOGICAL: Normal speech, normal gait. PSYCH: Normal mood, normal affect. SKIN: see above. Warm, Dry, normal turgor, no rashes or lesions noted. Course - Re-evaluation Re-evalutation: Myself and Keshav BARNHART attempted to replace the suprapubic catheter without success. We will consult with his Urologist. 12/13/17 08:40 Called and spoke with [facility] urology office who recommended interventional radiology first, then call them back if needed. 12/13/17 09:06 Bladder scan 131ml approx. Spoke with our radiologist who will have her OBEY attempt replacement. 12/13/17 11:34 Patient is an afebrile, well-hydrated, 72-year-old male who presents to the ED for suprapubic catheter replacement. Vitals are acceptable without significant tachycardia, tachypnea, or hypoxia. PE is otherwise unremarkable. Procedure was performed by radiology under fluoroscopy successfully without any obvious complications. No other labs or imaging warranted at this time based on H&P. Advised routine care by his long-term and recheck with your urologist in the next 3-5 days. Return to the ED with any worsening/concerning symptoms otherwise as reviewed in discharge. Patient and family are in agreement. - Vital Signs Vital signs: Temp Pulse Resp BP Pulse Ox 18 91/59 L 100 12/13/17 08:34 12/13/17 10:02 12/13/17 10:02 Discharge - Discharge Clinical Impression: Encounter for suprapubic catheter care Condition: Stable Disposition: HOME, SELF-CARE Additional Instructions: Catheter care as directed by your urologist Keep the skin clean Call your urology office and schedule an appointment for further evaluation and management Return to the ED with any worsening symptoms and/or development of fever, headache, chest pain, palpitations, syncope, shortness of breath, trouble breathing, abdominal pain, n/v/d, blood in stool/urine, or other worsening symptoms that are concerning to you. Referrals: FIDEL HANDY DO [Primary Care Provider] - Follow up as needed LAURYN HART MD [NO LOCAL MD] - Follow up in 3-5 days
[2017-12-13 10:13] VITALS: BP 91/59
[2017-12-13] MEDS ORDERED: LIDOCAINE 1% INJ-PF (10 MG/ML) 30 ML SDV ONE (10:51)
[2017-12-13] MEDS ORDERED: HYDROCODONE/ACETAMINOPHEN 7.5-325 MG TABLET PO ONE (11:44)
--- NOTE | 2017-12-13 12:35 | RADIOLOGY REPORT (SQ) ---
EXAM DESCRIPTION: CHGE PERC TUBE/DRN CTH W COMPLETED DATE/TIME: 12/13/2017 11:28 am REASON FOR STUDY: suprapubic tube placement COMPARISON: None. FLUOROSCOPY TIME: 49 seconds 3 digital radiographic images saved to PACS. TECHNIQUE: Suprapubic catheter replacement under fluoroscopy. Anterior lower abdominal wall was prepped and draped in sterile fashion. A 5 Sammarinese Kumpe catheter and Glidewire were used to establish communication from the anterior abdominal wall into the bladder through the pre-existing suprapubic catheter tract. At this point, the tract was dilated to 12 Sammarinese, and a 12 Sammarinese locking pigtail catheter was place d, with the pigtail loop in the urinary bladder. Catheter placement confirmed by injection of 10 mL of Isovue 370. 5 Fluoroscopic spot films saved to PACS demonstrating final catheter position. No immediate postprocedure complications. LIMITATIONS: None. FINDINGS: CONTRAST INJECTED: 10 mL of Isovue 350 TUBE POSITION: 12 Sammarinese locking Pigtail catheter tip is in the urinary bladder. IMPRESSION: Suprapubic catheter replacement under fluoroscopy.. COMMENT: Quality ID [id number]: Final reports for procedures using fluoroscopy that document radiation exp osure indices, or exposure time and number of fluorographic images (if radiation exposure indices are not available) TECHNICAL DOCUMENTATION: JOB ID: [id number] [employer]- All Rights Reserved Reading location - IP/workstation name: [email or web address]
== END 2017-12-13 15:00 | disposition home or self-care (01) ==
LOC: ER 07:00
DX: Z46.6 Encounter for fitting and adjustment of urinary device (principal); I50.9 Heart failure, unspecified; I11.0 Hypertensive heart disease with heart failure; J44.9 Chronic obstructive pulmonary disease, unspecified; E11.9 Type 2 diabetes mellitus without complications; Z86.73 Personal history of transient ischemic attack (TIA), and cerebral infarction without residual deficits; I25.2 Old myocardial infarction
CPT/HCPCS: 99283; 75984; C1758; C1894; C1769 ×2; C1729; C1892; J3490; A9270

== ENCOUNTER 2018-01-07 09:23 | Emergency (ER) | payer MEDICARE, MEDICAID ==
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
[2018-01-07 11:32] LABS: AMORPHOUS SEDIMENT,URINE TRACE /HPF; APPEARANCE,URINE CLOUDY; BILIRUBIN,URINE NEGATIVE (NEGATIVE); CALCIUM OXALATE CRYSTALS,URINE FEW /HPF; COLOR,URINE YELLOW; GLUCOSE, URINE NEGATIVE (NEGATIVE); KETONES,URINE NEGATIVE (NEGATIVE); LEUKOCYTE ESTERASE,URINE LARGE (NEGATIVE); NITRITE,URINE NEGATIVE (NEGATIVE); PROTEIN,URINE 100 mg/dL (NEGATIVE); URINE SPECIFIC GRAVITY 1.019
[2018-01-07 14:25] VITALS: BP 110/67
== END 2018-01-07 18:30 ==
LOC: ER 09:23
DX: T83.090A Other mechanical complication of cystostomy catheter, initial encounter (principal); T83.510A Infection and inflammatory reaction due to cystostomy catheter, initial encounter; Y73.8 Miscellaneous gastroenterology and urology devices associated with adverse incidents, not elsewhere classified; Y84.6 Urinary catheterization as the cause of abnormal reaction of the patient, or of later complication, without mention of misadventure at the time of the procedure; I10 Essential (primary) hypertension; I25.2 Old myocardial infarction; E11.9 Type 2 diabetes mellitus without complications; J44.9 Chronic obstructive pulmonary disease, unspecified
CPT/HCPCS: 81001; 87086; 87088; 87186; 99284

== ENCOUNTER 2018-03-28 16:10 | Inpatient (IN) | payer MEDICARE, MEDICAID ==
--- NOTE | 2018-03-28 16:59 | RADIOLOGY REPORT (SQ) ---
EXAM DESCRIPTION: CHEST SINGLE VIEW COMPLETED DATE/TIME: 03/28/2018 4:43 pm REASON FOR STUDY: sob COMPARISON: 08/22/2014. NUMBER OF VIEWS: One view. TECHNIQUE: Single frontal radiographic view of the chest acquired. LIMITATIONS: None. FINDINGS: LUNGS AND PLEURA: No opacities, masses or pneumothorax. No pleural effusion. Attenuated bl ood vessels and flattened abhijit-diaphragms. MEDIASTINUM AND HILAR STRUCTURES: No masses. Contour normal. HEART AND VASCULAR STRUCTURES: Heart normal in size. Normal vasculature. BONES: No acute findings. HARDWARE: None in the chest. OTHER: No other significant finding. IMPRESSION: COPD. NO ACUTE RADIOGRAPHIC FINDING IN THE CHEST. TECHNICAL DOCUMENTATION: JOB ID: [id number] [employer]- All Rights Reserved Reading location - IP/workstation name: [email or web address]
[2018-03-28 17:51] LABS: HEMATOCRIT 37.9 % (37.9-51.0); HEMOGLOBIN 12.2 g/dL (13.5-17.0); MEAN CORPUSCULAR HEMOGLOBIN 27.5 pg (27.0-33.4); MEAN CORPUSCULAR HGB CONC 32.1 g/dL (32.0-36.0); MEAN CORPUSCULAR VOLUME 86 fl (80-97); PLATELET COUNT 271 10^3/uL (150-450); RED BLOOD COUNT 4.43 10^6/uL (4.35-5.55); RED CELL DISTRIBUTION WIDTH 15.8 % (11.5-14.0); WHITE BLOOD COUNT 10.8 10^3/uL (4.0-10.5)
--- NOTE | 2018-03-28 17:52 | ER Document Report ---
ED General - General Chief Complaint: Breathing Difficulty Stated Complaint: DIFFICULTY BREATHING Time Seen by Provider: 03/28/18 16:55 Notes: 72-year-old male history of massive stroke, heart attack. Lives at nursing facility. Today he was having increased difficulty breathing. Respiratory distress. Noted to have tachycardia and blood pressure was low. Also had abdominal distention. Patient has frequent abdominal ileus. Currently blood pressure is low. Patient is nonverbal. Complaining of abdominal pain. The patient's is here. States that he [facility] not [facility]. She would like him admitted so that is ileus can be taken care of properly. TRAVEL OUTSIDE OF THE [place] IN LAST 30 DAYS: No - HPI Onset: This morning Onset/Duration: Gradual Quality of pain: Achy Associated symptoms: Other - Abdominal distention, respiratory distress - Related Data Allergies/Adverse Reactions: levofloxacin Adverse Reaction (Verified 12/13/17 08:41) Hives Past Medical History - General Information source: Relative, [facility] Records, Outside Facility Records - Social History Smoking Status: Unknown if Ever Smoked Frequency of alcohol use: Rare Drug Abuse: None Lives with: [facility] Family History: Reviewed & Not Pertinent, CAD, COPD, Hypertension - Past Medical History Cardiac Medical History: Reports: Hx Congestive Heart Failure, Hx Heart Attack, Hx Hypertension Pulmonary Medical History: Reports: Hx COPD Neurological Medical History: Reports: Hx Cerebrovascular Accident. Denies: Hx Seizures Endocrine Medical History: Reports: Hx Diabetes Mellitus Type 2 Renal/ Medical History: Denies: Hx Peritoneal Dialysis GI Medical History: Reports: Hx Gastroesophageal Reflux Disease Psychiatric Medical History: Reports: Hx Depression, Hx Schizoaffective Disorder , Hx Schizophrenia Past Surgical History: Reports: Hx Genitourinary Surgery, Other - ? previous TURP - Immunizations Hx Pneumococcal Vaccination: 04/27/16 Review of Systems - Review of Systems -: Yes ROS unobtainable due to patient's medical condition Physical Exam - Vital signs Vitals: Resp BP Pulse Ox 28 H 116/80 97 03/28/18 16:20 03/28/18 16:20 03/28/18 16:20 Interpretation: Hypotensive, Tachycardic - General General appearance: Appears well, Alert - HEENT Head: Normocephalic, Atraumatic Eyes: Normal Pupils: PERRL Mucous membranes: Dry - Respiratory Respiratory status: No respiratory distress, Tachypnea Chest status: Nontender Breath sounds: Normal Chest palpation: Normal - Cardiovascular Rhythm: Regular Heart sounds: Normal auscultation Murmur: No - Abdominal Inspection: Normal Distension: Distended, Other - Tympanic to percussion Bowel sounds: Hypoactive Tenderness: Nontender Organomegaly: No organomegaly - Back Back: Normal, Nontender - Extremities General upper extremity: Normal inspection, Nontender, Normal color, Normal temperature General lower extremity: Normal inspection, Nontender, Normal color, Normal temperature. 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 Spasticity of the right upper extremity. - Skin Skin Temperature: Warm Skin Moisture: Dry Skin Color: Normal Course - Re-evaluation Re-evalutation: 03/28/18 20:22 Patient has elevated WBC count, low blood pressure and tachycardia, hypernatremia, dehydration, UTI. VS. Multiple medical problems going on at this time. Will consult with hospitalist for admission at this time. 03/28/18 20:24 Laboratory 03/28/18 03/28/18 03/28/18 17:10 17:10 17:10 WBC 10.8 H RBC 4.43 Hgb 12.2 L Hct 37.9 MCV 86 MCH 27.5 MCHC 32.1 RDW 15.8 H Plt Count 271 Total Counted 100 Seg Neutrophils % Not Reportable Seg Neuts % (Manual) 69 Lymphocytes % Not Reportable Lymphocytes % (Manual) 13 Monocytes % Not Reportable Monocytes % (Manual) 15 H Eosinophils % Not Reportable Eosinophils % (Manual) 3 Basophils % Not Reportable Basophils % (Manual) 0 Absolute Neutrophils Not Reportable Abs Neuts (Manual) 7.5 Absolute Lymphocytes Not Reportable Abs Lymphs (Manual) 1.4 Absolute Monocytes Not Reportable Abs Monocytes (Manual) 1.6 H Absolute Eosinophils Not Reportable Absolute Eos (Manual) 0.3 Absolute Basophils Not Reportable Abs Basophils (Manual) 0.0 Toxic Granulation SLIGHT Platelet Comment ADEQUATE Anisocytosis SLIGHT Sodium 151.8 H Potassium 4.3 Chloride 107 Carbon Dioxide 32 H Anion Gap 13 BUN 43 H Creatinine 1.34 H Est GFR ( Amer) > 60 Est GFR (Non-Af Amer) 53 L Glucose 121 H Lactic Acid Calcium 10.9 H Total Bilirubin 0.5 Direct Bilirubin 0.4 Neonat Total Bilirubin Not Reportable Neonat Direct Bilirubin Not Reportable Neonat Indirect Bili Not Reportable AST 78 H ALT 84 H Alkaline Phosphatase 100 Creatine Kinase 107 CK-MB (CK-2) 1.01 Troponin I 0.013 Total Protein 7.4 Albumin 3.6 Urine Color Urine Appearance Urine pH Ur Specific [employer] Urine Protein Urine Glucose (UA) Urine Ketones Urine Blood Urine Nitrite Urine Bilirubin Urine Urobilinogen Ur Leukocyte Esterase Urine WBC (Auto) Urine RBC (Auto) Urine Bacteria (Auto) Triple Phos Cryst (Auto) Urine Mucus (Auto) Urine Ascorbic Acid 03/28/18 03/28/18 18:34 19:46 WBC RBC Hgb Hct MCV MCH MCHC RDW Plt Count Total Counted Seg Neutrophils % Seg Neuts % (Manual) Lymphocytes % Lymphocytes % (Manual) Monocytes % Monocytes % (Manual) Eosinophils % Eosinophils % (Manual) Basophils % Basophils % (Manual) Absolute Neutrophils Abs Neuts (Manual) Absolute Lymphocytes Abs Lymphs (Manual) Absolute Monocytes Abs Monocytes (Manual) Absolute Eosinophils Absolute Eos (Manual) Absolute Basophils Abs Basophils (Manual) Toxic Granulation Platelet Comment Anisocytosis Sodium Potassium Chloride Carbon Dioxide Anion Gap BUN Creatinine Est GFR ( Amer) Est GFR (Non-Af Amer) Glucose Lactic Acid 2.1 Calcium Total Bilirubin Direct Bilirubin Neonat Total Bilirubin Neonat Direct Bilirubin Neonat Indirect Bili AST ALT Alkaline Phosphatase Creatine Kinase CK-MB (CK-2) Troponin I Total Protein Albumin Urine Color YELLOW Urine Appearance TURBID Urine pH 7.0 Ur Specific [employer] 1.019 Urine Protein 100 H Urine Glucose (UA) NEGATIVE Urine Ketones NEGATIVE Urine Blood NEGATIVE Urine Nitrite NEGATIVE Urine Bilirubin NEGATIVE Urine Urobilinogen 2.0 H Ur Leukocyte Esterase LARGE H Urine WBC (Auto) >182 Urine RBC (Auto) 27 Urine Bacteria (Auto) 3+ Triple Phos Cryst (Auto) TOO NUMEROUS TO CNT Urine Mucus (Auto) MANY Urine Ascorbic Acid 40 H Chest X-Ray 03/28/18 16:21 IMPRESSION: COPD. NO ACUTE RADIOGRAPHIC FINDING IN THE CHEST. Abdomen X-Ray 03/28/18 17:51 IMPRESSION: GASEOUS DISTENTION THROUGHOUT THE SMALL BOWEL AND COLON. MAY BE DUE TO GENERALIZED ILEUS. MECHANICAL OBSTRUCTION UNLIKELY. - Vital Signs Vital signs: Temp Pulse Resp BP Pulse Ox 99.9 F 22 H 116/80 96 03/28/18 16:34 03/28/18 17:00 03/28/18 16:20 03/28/18 17:00 - Laboratory Result Diagrams: 03/28/18 17:10 03/28/18 17:10 Laboratory results interpreted by me: 03/28/18 03/28/18 03/28/18 17:10 17:10 18:34 WBC 10.8 H Hgb 12.2 L RDW 15.8 H Monocytes % (Manual) 15 H Abs Monocytes (Manual) 1.6 H Sodium 151.8 H Carbon Dioxide 32 H BUN 43 H Creatinine 1.34 H Est GFR (Non-Af Amer) 53 L Glucose 121 H Calcium 10.9 H AST 78 H ALT 84 H Urine Protein 100 H Urine Urobilinogen 2.0 H Ur Leukocyte Esterase LARGE H Urine Ascorbic Acid 40 H Critical Care Note - Critical Care Note Total time excluding time spent on procedures (mins): 35 Comments: Hypotension, tachycardia, dehydration, renal insufficiency Discharge - Discharge Clinical Impression: Ileus, unspecified, Acute renal insufficiency, Hypernatremia UTI (urinary tract infection) Qualifiers: Urinary tract infection type: catheter-associated UTI Indwelling urinary catheter type: cystostomy catheter Encounter type: initial encounter Qualified Code(s): T83.510A - Infection and inflammatory reaction due to cystostomy catheter, initial encounter; N39.0 - Urinary tract infection, site not specified ; N39.0 - Urinary tract infection, site not specified Condition: Good Disposition: ADMITTED INPATIENT Admitting Provider: Hospitalist - [facility] Unit Admitted: Medical Floor Referrals: SOL RODRIGUEZ MD [Primary Care Provider] - Follow up as needed
[2018-03-28 18:10] LABS: ALANINE AMINOTRANSFERASE 84 U/L (21-72); ALBUMIN 3.6 g/dL (3.5-5.0); ALKALINE PHOSPHATASE 100 U/L (38-126); ANION GAP 13 (5-19); ASPARTATE AMINO TRANSFERASE 78 U/L (17-59); BILIRUBIN,DIRECT 0.4 mg/dL (0.0-0.4); BILIRUBIN,TOTAL 0.5 mg/dL (0.2-1.3); BLOOD UREA NITROGEN 43 mg/dL (7-20); CALCIUM 10.9 mg/dL (8.4-10.2); CARBON DIOXIDE 32 mmol/L (22-30); CHLORIDE 107 mmol/L (98-107); CREATINE KINASE 107 U/L (55-170); GLUCOSE 121 mg/dL (75-110); POTASSIUM 4.3 mmol/L (3.6-5.0); SODIUM 151.8 mmol/L (137-145); TOTAL PROTEIN 7.4 g/dL (6.3-8.2)
[2018-03-28 18:12] LABS: ABSOLUTE LYMPHOCYTES# (MANUAL) 1.4 10^3/uL (0.5-4.7); ABSOLUTE MONOCYTES # (MANUAL) 1.6 10^3/uL (0.1-1.4); ABSOLUTE NEUTROPHILS# (MANUAL) 7.5 10^3/uL (1.7-8.2); ANISOCYTOSIS SLIGHT; BASOPHILS % (MANUAL) 0 % (0-2); EOSINOPHILS % (MANUAL) 3 % (0-6); LYMPHOCYTES % (MANUAL) 13 % (13-45); MONOCYTES % (MANUAL) 15 % (3-13); PLATELET COMMENT ADEQUATE; SEGMENTED NEUTROPHILS % (MAN) 69 % (42-78); TOTAL CELLS COUNTED 100; TOXIC GRANULATION SLIGHT
[2018-03-28 18:22] LABS: CREATINE KINASE MB 1.01 ng/mL (<4.55); TROPONIN I 0.013 ng/mL
--- NOTE | 2018-03-28 18:27 | RADIOLOGY REPORT (SQ) ---
EXAM DESCRIPTION: ABDOMEN 2 VIEWS COMPLETED DATE/TIME: 03/28/2018 6:13 pm REASON FOR STUDY: distention COMPARISON: 09/17/2017. NUMBER OF VIEWS: Two views. TECHNIQUE: Supine and erect/decubitus radiographic images of the abdomen acquired. LIMITATIONS: None. FINDINGS: FREE AIR: None. No abnormal gas collections. LUNG BASES: Clear. BOWEL GAS PATTERN: Prominent gaseous distention throughout the small bowel and colon. No air-fluid l evels. CALCIFICATIONS: No suspicious calcifications. SOFT TISSUES: No gross mass or suggestion of organomegaly. HARDWARE: Gastrostomy tube. BONES: No acute fracture. No worrisome bone lesions. OTHER: No other significant finding. IMPRESSION: GASEOUS DISTENTION THROUGHOUT THE SMALL BOWEL AND COLON. MAY BE DUE TO GENERALIZED ILEU S. MECHANICAL OBSTRUCTION UNLIKELY. TECHNICAL DOCUMENTATION: JOB ID: [id number] [employer]- All Rights Reserved Reading location - IP/workstation name: [email or web address]
[2018-03-28] MEDS ORDERED: BISACODYL 10 MG SUPP.RECT PR ONE (18:33)
[2018-03-28] MEDS ORDERED: NORMAL SALINE 1000 ML 1,000 ML IV ONE (18:49)
[2018-03-28 19:00] LABS: APPEARANCE,URINE TURBID; BILIRUBIN,URINE NEGATIVE (NEGATIVE); COLOR,URINE YELLOW; GLUCOSE, URINE NEGATIVE (NEGATIVE); KETONES,URINE NEGATIVE (NEGATIVE); LEUKOCYTE ESTERASE,URINE LARGE (NEGATIVE); NITRITE,URINE NEGATIVE (NEGATIVE); PROTEIN,URINE 100 mg/dL (NEGATIVE); TRIPLE PHOSPHATE CRYSTAL,URINE TOO NUMEROUS TO CNT /HPF; URINE SPECIFIC GRAVITY 1.019
[2018-03-28] MEDS ORDERED: CEFTRIAXONE INJ 1000 MG VIAL IV ONE (19:35)
[2018-03-28] MEDS ORDERED: ONDANSETRON HCL INJ/PF 4 MG/2 ML SDV IV PRN (20:21)
[2018-03-28] MEDS ORDERED: ONDANSETRON 4 MG TAB.RAPDIS PEG PRN (20:21)
[2018-03-28] MEDS ORDERED: BISACODYL 10 MG SUPP.RECT PR PRN (20:33)
[2018-03-28] MEDS ORDERED: ALBUTEROL SULFATE 0.083% NEB 2.5 MG/3 ML AMPUL NEB PRN (20:49)
--- NOTE | 2018-03-28 21:04 | EKG REPORT ---
SEVERITY:- ABNORMAL ECG - SINUS TACHYCARDIA LEFT ANTERIOR FASCICULAR BLOCK ANTEROLATERAL INFARCT, OLD : Confirmed by: Barb Monzon MD 28-Mar-2018 21:04:03
[2018-03-28] MEDS: DEXTROSE 5%-1/2 NORMAL SALINE 1,000 ML IV PRN (23:39)
[2018-03-28] MEDS: METOPROLOL TARTRATE 25 MG TABLET PEG SCH (23:44)
[2018-03-29] MEDS: LEVALBUTEROL HCL NEB 1.25 MG/3 ML AMPUL NEB SCH ×3 (00:10→16:20)
[2018-03-29] MEDS: IPRATROPIUM BROMIDE 0.02% NEB 0.5 MG/2.5 ML AMPUL NEB SCH ×3 (00:10→16:20)
[2018-03-29] MEDS: ATORVASTATIN CALCIUM 40 MG TABLET PEG SCH ×2 (00:36→22:31)
[2018-03-29] MEDS: METOCLOPRAMIDE HCL ORAL SOLN 10 MG/10 ML UDCUP PEG SCH ×4 (00:37→19:07)
[2018-03-29] MEDS: FAMOTIDINE INJ/PF 20 MG/2 ML SDV IV SCH ×3 (00:37→22:31)
--- NOTE | 2018-03-29 04:01 | PDOC H&P ---
History of Present Illness Admission Date/PCP: 03/28/18 20:35 SOL RODRIGUEZ MD Patient complains of: Tachycardia and hypotension History of Present Illness: DALY PORTILLO SR is a 72 year old male senior care resident who presented to the emergency room with his because he had been experiencing an increased heart rate and hypotension at the senior care. Patient is nonverbal and is unable to can contribute substantially meaningful information to his medical care. His indicates that he has been having abdominal distention and apparent abdominal pain or discomfort for the last several days and he has become very constipated. She is concerned that today he seemed to be somewhat decreased in his mental status and was also noted to have some increased difficulty breathing and appeared to be in some mild respiratory distress with tachypnea. He was not noted to be coughing or wheezing and the tachypnea was associated with an episode in which he appeared to be having significant transcient abdominal cramping pain. On exam in the emergency room the patient was found to have a sodium of 150 and increase in his BUN and creatinine over his normal baseline consistent with acute renal failure. With these findings the patient was admitted for further evaluation and treatment including rehydration. Past Medical History Cardiac Medical History: Reports: Congestive Heart Failure, Myocardial Infarction, Hypertension Pulmonary Medical History: Reports: Chronic Obstructive Pulmonary Disease (COPD) , Pneumonia EENT Medical History: Reports: None Neurological Medical History: Reports: Ischemic CVA Denies: Seizures Endocrine Medical History: Reports: Diabetes Mellitus Type 2 Denies: Diabetes Mellitus Type 1, Hyperthyroidism Renal/ Medical History: Reports: Chronic Kidney Disease Denies: Nephrolithiasis Malignancy Medical History: Reports: None GI Medical History: Reports: Gastroesophageal Reflux Disease Denies: Cirrhosis, Hepatitis Musculoskeltal Medical History: Denies: Arthritis, Gout Skin Medical History: Denies: Eczema, Psoriasis Psychiatric Medical History: Reports: Depression, Schizoaffective Disorder Denies: Alcohol Dependency, Substance Abuse, Tobacco Dependency Traumatic Medical History: Reports: None Hematology: Denies: Anemia, Bleeding Tendencies Infectious Medical History: Reports: None Past Surgical History Past Surgical History: Reports: Other - PEG tube placement, ? previous TURP Social History Information Source: Relative Lives with: Residential Smoking Status: Unknown if Ever Smoked Frequency of Alcohol Use: None Hx Recreational Drug Use: No Drugs: None Hx Prescription Drug Abuse: No - Advance Directive Resuscitation Status: Full Code Surrogate healthcare decision maker:: Spouse Family History Family History: CAD, COPD, Hypertension Parental Family History Reviewed: Yes Children Family History Reviewed: No Sibling(s) Family History Reviewed.: Yes Medication/Allergy Home Medications: Acetaminophen [Tylenol] 650 mg PEG Q6HP PRN 03/28/18 Albuterol Sulfate [Ventolin 0.083% Neb 2.5 mg/3 ml Ampul] 1 vial NEB RTQ3HP PRN 18 Atorvastatin Calcium [Lipitor 40 mg Tablet] 40 mg PEG QHS 03/28/18 Bisacodyl [Dulcolax 10 mg Supp.rect] 10 mg TN DAILY 03/28/18 Dexlansoprazole [Dexilant 30 mg Capsule] 30 mg PEG DAILY 03/28/18 Escitalopram Oxalate [Lexapro 10 mg Tablet] 10 mg PEG DAILY 03/28/18 Hyoscyamine Sulfate 0.125 mg SL Q4HP PRN 03/28/18 Ipratropium/Albuterol Sulfate [Duoneb 3 ml Ampul] 3 ml NEB RTQ6 03/28/18 Metoclopramide HCl [Reglan] 5 mg PEG Q8 03/28/18 Metoprolol Tartrate [Lopressor 25 mg Tablet] 12.5 mg PEG Q12 03/28/18 Polyethylene Glycol 3350 [Miralax Powder 17 gm/Packet] 1 packet PEG DAILY Rivaroxaban [Xarelto 15 mg Tablet] 15 mg PEG DAILY 03/28/18 Simethicone [Mylicon 80 mg Chewable Tablet] 80 mg PEG Q6HP PRN 03/28/18 Tiotropium [place] [Spiriva Handihaler 5 Cap/Kit (18 Mcg/Cap)] 1 cap IH DAILY Allergies/Adverse Reactions: levofloxacin Adverse Reaction (Verified 12/13/17 08:41) Hives Review of Systems ROS unobtainable: Due to mental status Physical Exam Vital Signs: Temp Pulse Resp BP Pulse Ox 99.9 F 22 H 116/80 96 03/28/18 16:34 03/28/18 17:00 03/28/18 16:20 03/28/18 17:00 General appearance: PRESENT: no acute distress, cooperative, well-developed, well-nourished Head exam: PRESENT: atraumatic, normocephalic Eye exam: PRESENT: conjunctiva pink, EOMI. ABSENT: scleral icterus Ear exam: PRESENT: normal external ear exam. ABSENT: drainage Mouth exam: PRESENT: dry mucosa, neck supple Neck exam: ABSENT: JVD, thyromegaly, tracheal deviation Respiratory exam: PRESENT: clear to auscultation eric, symmetrical, unlabored Cardiovascular exam: PRESENT: RRR. ABSENT: clicks, gallop, rubs Pulses: PRESENT: normal radial pulses, normal dorsalis pedis pul Vascular exam: PRESENT: normal capillary refill. ABSENT: pallor GI/Abdominal exam: PRESENT: distended - Gaseous distention, hypoactive bowel sounds - Consistent with ileus, soft. ABSENT: ascites Rectal exam: PRESENT: deferred Extremities exam: ABSENT: joint swelling, pedal edema Musculoskeletal exam: ABSENT: deformity, dislocation Neurological exam: PRESENT: motor sensory deficit, aphasic Psychiatric exam: PRESENT: other Skin exam: PRESENT: dry, intact, warm. ABSENT: jaundice, rash, urticaria Results Impressions: Chest X-Ray 03/28/18 16:21 IMPRESSION: COPD. NO ACUTE RADIOGRAPHIC FINDING IN THE CHEST. Abdomen X-Ray 03/28/18 17:51 IMPRESSION: GASEOUS DISTENTION THROUGHOUT THE SMALL BOWEL AND COLON. MAY BE DUE TO GENERALIZED ILEUS. MECHANICAL OBSTRUCTION UNLIKELY. Assessment & Plan - Diagnosis (1) Acute renal insufficiency Is this a current diagnosis for this admission?: Yes Plan: Patient will be rehydrated IV fluid in the form of D5 half-normal saline. (2) Hypernatremia Is this a current diagnosis for this admission?: Yes Plan: Patient be treated with D5 half-normal saline rehydration which should normalize his serum sodium level. (3) Ileus, unspecified Is this a current diagnosis for this admission?: Yes Plan: Patient will be rehydrated and his ileus will be reevaluated on an ongoing basis with a possible surgical consult if necessary. (4) Constipation Is this a current diagnosis for this admission?: Yes Plan: Patient's chronic constipation seems to be due to poor colonic transit. Patient is being treated with Reglan to see if this will improve his overall GI motility and possibly help to resolve some of his chronic constipation and chronic ileus problems. - Time Time Spent: 30 to 50 Minutes Medications reviewed and adjusted accordingly: Yes Anticipated discharge: SNF - Inpatient Certification Based on my medical assessment, after consideration of the patient's comorbidities, presenting symptoms, or acuity I expect that the services needed warrant INPATIENT care.: Yes I certify that my determination is in accordance with my understanding of Medicare's requirements for reasonable and necessary INPATIENT services [42 CFR 412.3e].: Yes Medical Necessity: Need Close Monitoring Due to Risk of Patient Decompensation, Need For IV Fluids, Risk of Complication if Not Cared For in Hospital
[2018-03-29] MEDS: DEXTROSE 5%-1/2 NORMAL SALINE 1,000 ML IV PRN ×2 (05:26→22:34)
[2018-03-29 06:59] LABS: ABSOLUTE EOSINOPHILS # (AUTO) 0.4 10^3/uL (0.0-0.6); ABSOLUTE LYMPHOCYTES (AUTO) 1.2 10^3/uL (0.5-4.7); ABSOLUTE MONOCYTES (AUTO) 0.9 10^3/uL (0.1-1.4); ABSOLUTE NEUT (AUTO) 5.8 10^3/uL (1.7-8.2); BASOPHILS % (AUTO) 0.5 % (0-2); EOSINOPHILS % (AUTO) 4.8 % (0-6); HEMATOCRIT 34.3 % (37.9-51.0); HEMOGLOBIN 10.9 g/dL (13.5-17.0); LYMPHOCYTES % (AUTO) 14.2 % (13-45); MEAN CORPUSCULAR HEMOGLOBIN 27.2 pg (27.0-33.4); MEAN CORPUSCULAR HGB CONC 31.9 g/dL (32.0-36.0); MEAN CORPUSCULAR VOLUME 86 fl (80-97); MONOCYTES % (AUTO) 10.5 % (3-13); PLATELET COUNT 254 10^3/uL (150-450); RED BLOOD COUNT 4.01 10^6/uL (4.35-5.55); RED CELL DISTRIBUTION WIDTH 15.6 % (11.5-14.0); TOTAL CELLS COUNTED % (AUTO) 100 %; WHITE BLOOD COUNT 8.3 10^3/uL (4.0-10.5)
[2018-03-29 07:20] LABS: AMYLASE 88 U/L (30-110); ANION GAP 9 (5-19); BLOOD UREA NITROGEN 35 mg/dL (7-20); CALCIUM 10.1 mg/dL (8.4-10.2); CARBON DIOXIDE 30 mmol/L (22-30); CHLORIDE 113 mmol/L (98-107); GLUCOSE 128 mg/dL (75-110); LIPASE 73.5 U/L (23-300); PHOSPHORUS 3.8 mg/dL (2.5-4.5); POTASSIUM 4.2 mmol/L (3.6-5.0); SODIUM 151.6 mmol/L (137-145)
[2018-03-29 07:37] LABS: FREE T3 2.94 pg/mL (2.77-5.27); FREE T4 (FREE THYROXINE) 1.13 ng/dL (0.78-2.19)
[2018-03-29 07:50] LABS: THYROID STIMULATING HORMONE 2.99 uIU/mL (0.47-4.68)
[2018-03-29] MEDS: BUDESONIDE NEB 0.5 MG/2 ML AMPUL NEB SCH ×2 (09:04→20:10)
[2018-03-29] MEDS ORDERED: CEFTRIAXONE 1 GM/D5W RTU 1 GM/50 ML RTUPB IV SCH (10:00)
[2018-03-29] MEDS ORDERED: TAMSULOSIN HCL 0.4 MG CAP.SR.24H PO SCH (10:00)
[2018-03-29] MEDS: METOCLOPRAMIDE HCL 10 MG TABLET PO SCH ×2 (13:13→13:20)
[2018-03-29] MEDS: METOPROLOL TARTRATE 25 MG TABLET PEG SCH ×2 (13:14→22:31)
[2018-03-29] MEDS: POLYETHYLENE GLYCOL 3350 POWDER 17 GM/1 PACKET PEG SCH (13:14)
[2018-03-29] MEDS: ESCITALOPRAM OXALATE 10 MG TABLET PEG SCH (13:14)
[2018-03-29] MEDS: FINASTERIDE 5 MG TABLET PO SCH (13:25)
[2018-03-29] MEDS ORDERED: ONDANSETRON HCL INJ/PF 4 MG/2 ML SDV IV PRN (13:30)
[2018-03-29] MEDS ORDERED: ONDANSETRON 4 MG TAB.RAPDIS PEG PRN (13:30)
--- NOTE | 2018-03-29 16:42 | PDOC PROGRESS REPORT ---
Subjective Progress Note for:: 03/29/18 Subjective:: Patient cannot speak since his stroke. His sister is at the bedside with him. He is calm appearing and cannot consistently follow commands. His sister said that sometimes he can swallow a little bit of water. But in general she is concerned that he does not get enough water in his G-tube at the facility where he lives. He also states that he has some chronic abdominal distention. She thinks he had a bowel movement yesterday after getting his suppository. She is most concerned about dehydration and some somnolence. She does think she is a bit better than he was on admission. I shared that his blood pressure is improving. After my interaction with the patient I learned that he is growing gram-negative rods and one set of blood cultures. Reason For Visit: HYPOTENSION, DEHYDRATION, TACHCARDIA, ARF, ILLEUS Physical Exam Vital Signs: Temp Pulse Resp BP Pulse Ox 98.2 F 95 20 141/76 H 97 03/29/18 11:23 03/29/18 11:23 03/29/18 11:23 03/29/18 11:23 03/29/18 11:23 Intake & Output 03/28/18 03/29/18 03/30/18 06:59 06:59 06:59 Intake Total 966 Balance 966 Weight 58.2 kg General appearance: PRESENT: no acute distress, thin Head exam: PRESENT: atraumatic, normocephalic Eye exam: ABSENT: conjunctival injection, scleral icterus Mouth exam: PRESENT: dry mucosa Respiratory exam: PRESENT: clear to auscultation erci, unlabored. ABSENT: rales , rhonchi, wheezes Cardiovascular exam: PRESENT: RRR Pulses: PRESENT: normal radial pulses GI/Abdominal exam: PRESENT: distended, hypoactive bowel sounds, soft. ABSENT: guarding Gentrourinary exam: PRESENT: indwelling catheter Neurological exam: PRESENT: alert, awake, oriented to person. ABSENT: oriented to place Psychiatric exam: ABSENT: anxious Skin exam: PRESENT: dry, warm Results Laboratory Results: 03/29/18 06:47 03/29/18 06:47 03/28/18 03/29/18 03/29/18 23:54 06:47 06:47 WBC 8.3 RBC 4.01 L Hgb 10.9 L Hct 34.3 L MCV 86 MCH 27.2 MCHC 31.9 L RDW 15.6 H Plt Count 254 Seg Neutrophils % 70.0 Lymphocytes % 14.2 Monocytes % 10.5 Eosinophils % 4.8 Basophils % 0.5 Absolute Neutrophils 5.8 Absolute Lymphocytes 1.2 Absolute Monocytes 0.9 Absolute Eosinophils 0.4 Absolute Basophils 0.0 Sodium 151.6 H Potassium 4.2 Chloride 113 H Carbon Dioxide 30 Anion Gap 9 BUN 35 H Creatinine 1.17 Est GFR ( Amer) > 60 Est GFR (Non-Af Amer) > 60 Glucose 128 H Lactic Acid 1.2 Calcium 10.1 Phosphorus 3.8 Magnesium 2.1 Ammonia Amylase 88 Lipase 73.5 TSH Free T4 Free T3 pg/mL 03/29/18 03/29/18 06:47 06:47 WBC RBC Hgb Hct MCV MCH MCHC RDW Plt Count Seg Neutrophils % Lymphocytes % Monocytes % Eosinophils % Basophils % Absolute Neutrophils Absolute Lymphocytes Absolute Monocytes Absolute Eosinophils Absolute Basophils Sodium Potassium Chloride Carbon Dioxide Anion Gap BUN Creatinine Est GFR ( Amer) Est GFR (Non-Af Amer) Glucose Lactic Acid Calcium Phosphorus Magnesium Ammonia 14.6 Amylase Lipase TSH 2.99 Free T4 1.13 Free T3 pg/mL 2.94 Impressions: Chest X-Ray 03/28/18 16:21 IMPRESSION: COPD. NO ACUTE RADIOGRAPHIC FINDING IN THE CHEST. Abdomen X-Ray 03/28/18 17:51 IMPRESSION: GASEOUS DISTENTION THROUGHOUT THE SMALL BOWEL AND COLON. MAY BE DUE TO GENERALIZED ILEUS. MECHANICAL OBSTRUCTION UNLIKELY. Assessment & Plan - Diagnosis (1) Gram-negative bacteremia Is this a current diagnosis for this admission?: Yes Plan: Patient was on ceftriaxone for a urinary tract infection and given this new blood culture I will increase coverage to cefepime 2 g IV every 12 until we have final results. Blood pressure is improving with IV fluid administration. We will check lactic acid. Will follow carefully. (2) Hypernatremia Is this a current diagnosis for this admission?: Yes Plan: slight improvement, will continue IV fluids and recheck sodium this afternoon. Will consider changing IV fluids to D5 water if we do not see much of an improvement. Acute kidney injury improving and blood pressure improving all indicating that the dehydration is improving. (3) Ileus Is this a current diagnosis for this admission?: Yes Plan: Per family at bedside patient has chronic abdominal distention. Apparently he had a bowel movement yesterday. Patient does not have evidence of an acute abdomen. Will monitor for changes and consult surgery as indicated. (4) UTI (urinary tract infection) Qualifiers: Urinary tract infection type: catheter-associated UTI Indwelling urinary catheter type: cystostomy catheter Encounter type: initial encounter Qualified Code(s): T83.510A - Infection and inflammatory reaction due to cystostomy catheter, initial encounter; N39.0 - Urinary tract infection, site not specified; N39.0 - Urinary tract infection, site not specified Is this a current diagnosis for this admission?: Yes Plan: Evidence of urinary tract infection on urinalysis, urine culture pending. Blood culture gram-negative rods. Ceftriaxone changed to cefepime until culture results are final. (5) Dehydration Is this a current diagnosis for this admission?: Yes Plan: Patient is hypernatremic, had acute kidney injury and hypotention. He had evidence of dehydration which is now improving with fluid hydration and antibiotics for UTI. - Time Time Spent with patient: 25-34 minutes - Inpatient Certification Based on my medical assessment, after consideration of the patient's comorbidities, presenting symptoms, or acuity I expect that the services needed warrant INPATIENT care.: Yes I certify that my determination is in accordance with my understanding of Medicare's requirements for reasonable and necessary INPATIENT services [42 CFR 412.3e].: Yes Medical Necessity: Need For IV Fluids, Need for IV Antibiotics, Risk of Complication if Not Cared For in Hospital - Plan Summary Plan Summary: - Diagnosis (1) Acute renal insufficiency Is this a current diagnosis for this admission?: Yes Plan: Patient will be rehydrated IV fluid in the form of D5 half-normal saline. (2) Hypernatremia Is this a current diagnosis for this admission?: Yes Plan: Patient be treated with D5 half-normal saline rehydration which should normalize his serum sodium level. (3) Ileus, unspecified Is this a current diagnosis for this admission?: Yes Plan: Patient will be rehydrated and his ileus will be reevaluated on an ongoing basis with a possible surgical consult if necessary. (4) Constipation Is this a current diagnosis for this admission?: Yes Plan: Patient's chronic constipation seems to be due to poor colonic transit. Patient is being treated with Reglan to see if this will improve his overall GI motility and possibly help to resolve some of his chronic constipation and chronic ileus problems.
[2018-03-29] MEDS ORDERED: CEFTRIAXONE SODIUM 1,000 MG in DEXTROSE 5%-WATER 50 ML IV SCH (18:00)
[2018-03-29 18:01] LABS: ANION GAP 6 (5-19); BLOOD UREA NITROGEN 28 mg/dL (7-20); CALCIUM 10.1 mg/dL (8.4-10.2); CARBON DIOXIDE 30 mmol/L (22-30); CHLORIDE 113 mmol/L (98-107); GLUCOSE 136 mg/dL (75-110); POTASSIUM 4.3 mmol/L (3.6-5.0); SODIUM 148.8 mmol/L (137-145)
[2018-03-29] MEDS: RIVAROXABAN 15 MG TABLET PEG SCH (19:07)
[2018-03-29] MEDS: CEFEPIME 2 GM/D5W RTU 2 GM/50 ML RTUPB IV SCH (22:31)
[2018-03-30] MEDS: METOCLOPRAMIDE HCL ORAL SOLN 10 MG/10 ML UDCUP PEG SCH ×4 (00:08→22:24)
[2018-03-30] MEDS: LEVALBUTEROL HCL NEB 1.25 MG/3 ML AMPUL NEB SCH ×3 (00:37→16:26)
[2018-03-30] MEDS: IPRATROPIUM BROMIDE 0.02% NEB 0.5 MG/2.5 ML AMPUL NEB SCH ×3 (00:37→16:26)
[2018-03-30] MEDS: DEXTROSE 5%-1/2 NORMAL SALINE 1,000 ML IV PRN (06:33)
[2018-03-30 07:16] LABS: ABSOLUTE EOSINOPHILS # (AUTO) 0.3 10^3/uL (0.0-0.6); ABSOLUTE LYMPHOCYTES (AUTO) 1.3 10^3/uL (0.5-4.7); ABSOLUTE MONOCYTES (AUTO) 0.7 10^3/uL (0.1-1.4); ABSOLUTE NEUT (AUTO) 5.2 10^3/uL (1.7-8.2); BASOPHILS % (AUTO) 0.3 % (0-2); EOSINOPHILS % (AUTO) 3.6 % (0-6); HEMATOCRIT 30.4 % (37.9-51.0); HEMOGLOBIN 9.7 g/dL (13.5-17.0); LYMPHOCYTES % (AUTO) 17.5 % (13-45); MEAN CORPUSCULAR HEMOGLOBIN 27.4 pg (27.0-33.4); MEAN CORPUSCULAR HGB CONC 31.9 g/dL (32.0-36.0); MEAN CORPUSCULAR VOLUME 86 fl (80-97); MONOCYTES % (AUTO) 9.6 % (3-13); PLATELET COUNT 226 10^3/uL (150-450); RED BLOOD COUNT 3.53 10^6/uL (4.35-5.55); RED CELL DISTRIBUTION WIDTH 15.3 % (11.5-14.0); TOTAL CELLS COUNTED % (AUTO) 100 %; WHITE BLOOD COUNT 7.6 10^3/uL (4.0-10.5)
[2018-03-30 07:59] LABS: ANION GAP 7 (5-19); BLOOD UREA NITROGEN 22 mg/dL (7-20); CALCIUM 9.6 mg/dL (8.4-10.2); CARBON DIOXIDE 26 mmol/L (22-30); CHLORIDE 113 mmol/L (98-107); GLUCOSE 110 mg/dL (75-110); PHOSPHORUS 3.3 mg/dL (2.5-4.5); POTASSIUM 3.8 mmol/L (3.6-5.0); SODIUM 146.4 mmol/L (137-145)
[2018-03-30] MEDS: BUDESONIDE NEB 0.5 MG/2 ML AMPUL NEB SCH ×2 (08:18→20:40)
[2018-03-30] MEDS ORDERED: DEXTROSE 5%-1/2 NORMAL SALINE 1,000 ML IV PRN (10:03)
[2018-03-30] MEDS: NYSTATIN CREAM 15 GM TP SCH (13:10)
[2018-03-30] MEDS: FAMOTIDINE INJ/PF 20 MG/2 ML SDV IV SCH ×2 (13:11→22:24)
[2018-03-30] MEDS: METOPROLOL TARTRATE 25 MG TABLET PEG SCH ×2 (13:11→22:24)
[2018-03-30] MEDS: ESCITALOPRAM OXALATE 10 MG TABLET PEG SCH (13:11)
[2018-03-30] MEDS: FINASTERIDE 5 MG TABLET PO SCH (13:12)
[2018-03-30] MEDS: CEFEPIME 2 GM/D5W RTU 2 GM/50 ML RTUPB IV SCH ×2 (13:22→22:25)
--- NOTE | 2018-03-30 15:12 | PDOC PROGRESS REPORT ---
Subjective Progress Note for:: 03/30/18 Subjective:: pt is non verbal, sister not at bedside, pt had large BM, appears non distressed , per RN had a quiet night Reason For Visit: HYPOTENSION, DEHYDRATION, TACHCARDIA, ARF, ILLEUS Physical Exam Vital Signs: Temp Pulse Resp BP Pulse Ox 97.5 F 87 14 117/65 98 03/30/18 13:11 03/30/18 13:11 03/30/18 13:11 03/30/18 13:11 03/30/18 13:11 Intake & Output 03/29/18 03/30/18 03/31/18 06:59 06:59 06:59 Intake Total 966 2050 Output Total 1150 Balance 966 900 Weight 58.2 kg 57.9 kg General appearance: PRESENT: no acute distress, cooperative, thin Head exam: PRESENT: atraumatic, normocephalic, other - bitemporal wasting Eye exam: ABSENT: scleral icterus Mouth exam: PRESENT: moist. ABSENT: neck supple Respiratory exam: PRESENT: clear to auscultation eric, unlabored. ABSENT: rales , rhonchi, wheezes Cardiovascular exam: PRESENT: RRR. ABSENT: systolic murmur Pulses: PRESENT: normal radial pulses GI/Abdominal exam: PRESENT: distended, hypoactive bowel sounds, soft. ABSENT: firm, guarding, tenderness Rectal exam: PRESENT: other - large liquid brown BM Gentrourinary exam: PRESENT: other - pt has SPC, otherwise nonrmal ext male genetalia Extremities exam: ABSENT: joint swelling, pedal edema Musculoskeletal exam: ABSENT: ambulatory, full ROM Neurological exam: PRESENT: awake, other - none verbal, intermittantly follows commands, nods yes to all questions Psychiatric exam: PRESENT: other - confused seeming. ABSENT: anxious Skin exam: PRESENT: warm, other - several small stage 2 brooke over sacrum with posisble excoriation, extreme beefy redness in groin and around Results Laboratory Results: 03/30/18 06:46 03/30/18 06:46 03/29/18 03/29/18 03/30/18 17:15 17:15 06:46 WBC 7.6 RBC 3.53 L Hgb 9.7 L Hct 30.4 L MCV 86 MCH 27.4 MCHC 31.9 L RDW 15.3 H Plt Count 226 Seg Neutrophils % 69.0 Lymphocytes % 17.5 Monocytes % 9.6 Eosinophils % 3.6 Basophils % 0.3 Absolute Neutrophils 5.2 Absolute Lymphocytes 1.3 Absolute Monocytes 0.7 Absolute Eosinophils 0.3 Absolute Basophils 0.0 Sodium 148.8 H Potassium 4.3 Chloride 113 H Carbon Dioxide 30 Anion Gap 6 BUN 28 H Creatinine 1.14 Est GFR ( Amer) > 60 Est GFR (Non-Af Amer) > 60 Glucose 136 H Lactic Acid 1.7 Calcium 10.1 Phosphorus Magnesium 03/30/18 06:46 WBC RBC Hgb Hct MCV MCH MCHC RDW Plt Count Seg Neutrophils % Lymphocytes % Monocytes % Eosinophils % Basophils % Absolute Neutrophils Absolute Lymphocytes Absolute Monocytes Absolute Eosinophils Absolute Basophils Sodium 146.4 H Potassium 3.8 Chloride 113 H Carbon Dioxide 26 Anion Gap 7 BUN 22 H Creatinine 1.07 Est GFR ( Amer) > 60 Est GFR (Non-Af Amer) > 60 Glucose 110 Lactic Acid Calcium 9.6 Phosphorus 3.3 Magnesium 1.8 Impressions: Chest X-Ray 03/28/18 16:21 IMPRESSION: COPD. NO ACUTE RADIOGRAPHIC FINDING IN THE CHEST. Abdomen X-Ray 03/28/18 17:51 IMPRESSION: GASEOUS DISTENTION THROUGHOUT THE SMALL BOWEL AND COLON. MAY BE DUE TO GENERALIZED ILEUS. MECHANICAL OBSTRUCTION UNLIKELY. Assessment & Plan - Diagnosis (1) Gram-negative bacteremia Is this a current diagnosis for this admission?: Yes Plan: One set of blood cultures growing gram-negative rods, urine is growing greater than 100,000 gram-negative rods. Yesterday I change ceftriaxone to cefepime and will continue this until we have speciation and sensitivities. (2) Hypernatremia Is this a current diagnosis for this admission?: Yes Plan: Proving with D5 half NS, will decrease rate and continue to monitor sodium. Nutrition consult has been placed for G-tube feeding also. (3) Ileus Is this a current diagnosis for this admission?: Yes Plan: She has chronic abdominal distention per sister. Today he had a very large bowel movement, does not have significant pain on exam and continues to have distention. We will continue to monitor and expand workup if indicated. (4) UTI (urinary tract infection) Qualifiers: Urinary tract infection type: catheter-associated UTI Indwelling urinary catheter type: cystostomy catheter Encounter type: initial encounter Qualified Code(s): T83.510A - Infection and inflammatory reaction due to cystostomy catheter, initial encounter; N39.0 - Urinary tract infection, site not specified; N39.0 - Urinary tract infection, site not specified Is this a current diagnosis for this admission?: Yes Plan: Other than 100,000 gram-negative rods growing in urine culture, continue cefepime (5) Dehydration Is this a current diagnosis for this admission?: Yes Plan: Awaiting tube feed recommendations from dietitian, continue D5 half NS. - Time Time Spent with patient: 35 or more minutes Medications reviewed and adjusted accordingly: Yes Anticipated discharge: Home with Homehealth - Inpatient Certification Based on my medical assessment, after consideration of the patient's comorbidities, presenting symptoms, or acuity I expect that the services needed warrant INPATIENT care.: Yes I certify that my determination is in accordance with my understanding of Medicare's requirements for reasonable and necessary INPATIENT services [42 CFR 412.3e].: Yes Medical Necessity: Need for IV Antibiotics
[2018-03-30] MEDS: POLYETHYLENE GLYCOL 3350 POWDER 17 GM/1 PACKET PEG SCH (20:54)
[2018-03-30] MEDS: ATORVASTATIN CALCIUM 40 MG TABLET PEG SCH (22:25)
[2018-03-31] MEDS: LEVALBUTEROL HCL NEB 1.25 MG/3 ML AMPUL NEB SCH ×3 (00:41→16:35)
[2018-03-31] MEDS: IPRATROPIUM BROMIDE 0.02% NEB 0.5 MG/2.5 ML AMPUL NEB SCH ×3 (00:41→16:35)
[2018-03-31] MEDS: METOCLOPRAMIDE HCL ORAL SOLN 10 MG/10 ML UDCUP PEG SCH ×4 (00:51→17:38)
[2018-03-31] MEDS: NYSTATIN CREAM 15 GM TP SCH ×3 (08:37→17:43)
[2018-03-31] MEDS: RIVAROXABAN 15 MG TABLET PEG SCH ×2 (08:37→17:38)
[2018-03-31 08:49] LABS: ABSOLUTE EOSINOPHILS # (AUTO) 0.3 10^3/uL (0.0-0.6); ABSOLUTE MONOCYTES (AUTO) 0.5 10^3/uL (0.1-1.4); ABSOLUTE NEUT (AUTO) 3.3 10^3/uL (1.7-8.2); BASOPHILS % (AUTO) 0.8 % (0-2); EOSINOPHILS % (AUTO) 5.2 % (0-6); HEMATOCRIT 31.6 % (37.9-51.0); HEMOGLOBIN 10.1 g/dL (13.5-17.0); LYMPHOCYTES % (AUTO) 20.2 % (13-45); MEAN CORPUSCULAR HEMOGLOBIN 27.1 pg (27.0-33.4); MEAN CORPUSCULAR HGB CONC 32.1 g/dL (32.0-36.0); MEAN CORPUSCULAR VOLUME 85 fl (80-97); MONOCYTES % (AUTO) 10.1 % (3-13); PLATELET COUNT 247 10^3/uL (150-450); RED BLOOD COUNT 3.74 10^6/uL (4.35-5.55); RED CELL DISTRIBUTION WIDTH 14.9 % (11.5-14.0); SEGMENTED NEUTROPHILS % (AUTO) 63.7 % (42-78); TOTAL CELLS COUNTED % (AUTO) 100 %; WHITE BLOOD COUNT 5.2 10^3/uL (4.0-10.5)
[2018-03-31] MEDS: BUDESONIDE NEB 0.5 MG/2 ML AMPUL NEB SCH ×2 (09:00→20:57)
[2018-03-31 09:11] LABS: ANION GAP 8 (5-19); BLOOD UREA NITROGEN 15 mg/dL (7-20); CALCIUM 9.9 mg/dL (8.4-10.2); CARBON DIOXIDE 25 mmol/L (22-30); CHLORIDE 111 mmol/L (98-107); GLUCOSE 103 mg/dL (75-110); PHOSPHORUS 3.2 mg/dL (2.5-4.5); POTASSIUM 4.1 mmol/L (3.6-5.0); SODIUM 144.3 mmol/L (137-145)
[2018-03-31] MEDS: METOPROLOL TARTRATE 25 MG TABLET PEG SCH ×2 (10:21→21:48)
[2018-03-31] MEDS: FAMOTIDINE INJ/PF 20 MG/2 ML SDV IV SCH ×2 (10:22→21:49)
[2018-03-31] MEDS: FINASTERIDE 5 MG TABLET PO SCH (10:22)
[2018-03-31] MEDS: ESCITALOPRAM OXALATE 10 MG TABLET PEG SCH (10:22)
[2018-03-31] MEDS: CEFEPIME 2 GM/D5W RTU 2 GM/50 ML RTUPB IV SCH ×2 (10:22→21:49)
--- NOTE | 2018-03-31 17:36 | PDOC PROGRESS REPORT ---
Subjective Progress Note for:: 03/31/18 Subjective:: She is nonverbal, per nursing staff no acute events overnight, he had 2 large bowel movements yesterday. Reason For Visit: HYPOTENSION, DEHYDRATION, TACHCARDIA, ARF, ILLEUS Physical Exam Vital Signs: Temp Pulse Resp BP Pulse Ox 97.5 F 87 16 132/80 H 100 03/31/18 15:40 03/31/18 15:40 03/31/18 15:40 03/31/18 15:40 03/31/18 15:40 Intake & Output 03/30/18 03/31/18 04/01/18 06:59 06:59 06:59 Intake Total 2050 1100 50 Output Total 1150 1700 Balance 900 -600 50 Weight 57.9 kg 58.7 kg General appearance: PRESENT: no acute distress, cooperative, thin Head exam: PRESENT: other - Right temporal wasting. ABSENT: atraumatic, normocephalic Eye exam: ABSENT: conjunctival injection, scleral icterus Ear exam: PRESENT: normal external ear exam Mouth exam: PRESENT: moist Neck exam: ABSENT: lymphadenopathy Respiratory exam: PRESENT: clear to auscultation eric, unlabored. ABSENT: rales , rhonchi, wheezes Cardiovascular exam: PRESENT: RRR. ABSENT: systolic murmur Pulses: PRESENT: normal radial pulses GI/Abdominal exam: PRESENT: distended, normal bowel sounds, soft, other - PEG tube in place without complication. ABSENT: tenderness Rectal exam: ABSENT: black stool, bloody stool Gentrourinary exam: PRESENT: indwelling catheter - Suprapubic catheter in place draining clear yellow urine Extremities exam: ABSENT: pedal edema Musculoskeletal exam: PRESENT: normal inspection Neurological exam: PRESENT: alert, awake, other - Inconsistently follows commands, a phasic Psychiatric exam: ABSENT: agitated, anxious Skin exam: PRESENT: dry, warm, other - Patient has stage II area of breakdown which is about coin sized over his buttock. That was dressed yesterday. He also has evidence of fungal infection in the groin and thomas-area and we are applying nystatin. Results Laboratory Results: 03/31/18 08:25 03/31/18 08:25 03/31/18 03/31/18 08:25 08:25 WBC 5.2 RBC 3.74 L Hgb 10.1 L Hct 31.6 L MCV 85 MCH 27.1 MCHC 32.1 RDW 14.9 H Plt Count 247 Seg Neutrophils % 63.7 Lymphocytes % 20.2 Monocytes % 10.1 Eosinophils % 5.2 Basophils % 0.8 Absolute Neutrophils 3.3 Absolute Lymphocytes 1.0 Absolute Monocytes 0.5 Absolute Eosinophils 0.3 Absolute Basophils 0.0 Sodium 144.3 Potassium 4.1 Chloride 111 H Carbon Dioxide 25 Anion Gap 8 BUN 15 Creatinine 1.04 Est GFR ( Amer) > 60 Est GFR (Non-Af Amer) > 60 Glucose 103 Calcium 9.9 Phosphorus 3.2 Magnesium 1.8 Impressions: Chest X-Ray 03/28/18 16:21 IMPRESSION: COPD. NO ACUTE RADIOGRAPHIC FINDING IN THE CHEST. Abdomen X-Ray 03/28/18 17:51 IMPRESSION: GASEOUS DISTENTION THROUGHOUT THE SMALL BOWEL AND COLON. MAY BE DUE TO GENERALIZED ILEUS. MECHANICAL OBSTRUCTION UNLIKELY. Assessment & Plan - Diagnosis (1) Gram-negative bacteremia Is this a current diagnosis for this admission?: Yes Plan: Gram-negative rods growing in one set of blood cultures. Patient is on cefepime. Growing Pseudomonas in his urine. We will continue cefepime. Clinically he is much improved with normal white count, normal lactic acid level and afebrile. (2) Hypernatremia Is this a current diagnosis for this admission?: Yes Plan: Resolved with D5 half NS. I am starting his tube feeding today so will discontinue his IV fluids, sodium is in the normal range now. (3) Ileus Is this a current diagnosis for this admission?: Yes Plan: She had distention and constipation on admission. He has had 2 large bowel movements and his abdomen seems to be much improved, probably close to his baseline. (4) UTI (urinary tract infection) Qualifiers: Urinary tract infection type: catheter-associated UTI Indwelling urinary catheter type: cystostomy catheter Encounter type: initial encounter Qualified Code(s): T83.510A - Infection and inflammatory reaction due to cystostomy catheter, initial encounter; N39.0 - Urinary tract infection, site not specified; N39.0 - Urinary tract infection, site not specified Is this a current diagnosis for this admission?: Yes Plan: Growing Pseudomonas and gram-positive cocci in clusters. Pseudomonas is being treated with cefepime as he has gram-negative rods in his blood. Clinically he is much improved, no white blood cell count, lack when he is afebrile. He has not been treated for gram-positive cocci in clusters, as he is doing well clinically will await speciation and sensitivities and consider treatment at that time. (5) Dehydration Is this a current diagnosis for this admission?: Yes Plan: IV fluids have been discontinued, sodium level is in normal range. Tube feeds have been restarted using dietitian recommendations. - Time Time Spent with patient: 25-34 minutes Medications reviewed and adjusted accordingly: Yes Anticipated discharge: Home with Homehealth - Inpatient Certification Based on my medical assessment, after consideration of the patient's comorbidities, presenting symptoms, or acuity I expect that the services needed warrant INPATIENT care.: Yes I certify that my determination is in accordance with my understanding of Medicare's requirements for reasonable and necessary INPATIENT services [42 CFR 412.3e].: Yes Medical Necessity: Need Close Monitoring Due to Risk of Patient Decompensation, Risk of Complication if Not Cared For in Hospital - Plan Summary Plan Summary: [facility] He has been living there post stroke. His sister who is his healthcare power of import export coordinator wants to take him home and so case management is helping arrange for that discharge when he is clinically ready.
[2018-03-31] MEDS: ATORVASTATIN CALCIUM 40 MG TABLET PEG SCH (21:48)
[2018-04-01] MEDS: METOCLOPRAMIDE HCL ORAL SOLN 10 MG/10 ML UDCUP PEG SCH ×4 (00:25→17:10)
[2018-04-01] MEDS: IPRATROPIUM BROMIDE 0.02% NEB 0.5 MG/2.5 ML AMPUL NEB SCH ×3 (02:13→15:55)
[2018-04-01] MEDS: LEVALBUTEROL HCL NEB 1.25 MG/3 ML AMPUL NEB SCH ×3 (02:14→15:55)
[2018-04-01 07:46] LABS: HEMOGLOBIN 11.3 g/dL (13.5-17.0); MEAN CORPUSCULAR HEMOGLOBIN 27.9 pg (27.0-33.4); MEAN CORPUSCULAR HGB CONC 33.1 g/dL (32.0-36.0); MEAN CORPUSCULAR VOLUME 84 fl (80-97); PLATELET COUNT 263 10^3/uL (150-450); RED BLOOD COUNT 4.04 10^6/uL (4.35-5.55); WHITE BLOOD COUNT 5.4 10^3/uL (4.0-10.5)
[2018-04-01 08:01] LABS: ANION GAP 9 (5-19); BLOOD UREA NITROGEN 14 mg/dL (7-20); CALCIUM 9.9 mg/dL (8.4-10.2); CARBON DIOXIDE 23 mmol/L (22-30); CHLORIDE 110 mmol/L (98-107); GLUCOSE 119 mg/dL (75-110); POTASSIUM 3.4 mmol/L (3.6-5.0); SODIUM 141.8 mmol/L (137-145)
[2018-04-01] MEDS: BUDESONIDE NEB 0.5 MG/2 ML AMPUL NEB SCH ×2 (08:53→20:07)
[2018-04-01] MEDS: FINASTERIDE 5 MG TABLET PO SCH (09:20)
[2018-04-01] MEDS: METOPROLOL TARTRATE 25 MG TABLET PEG SCH ×2 (09:20→21:46)
[2018-04-01] MEDS: ESCITALOPRAM OXALATE 10 MG TABLET PEG SCH (09:20)
[2018-04-01] MEDS: FAMOTIDINE INJ/PF 20 MG/2 ML SDV IV SCH ×2 (09:21→21:46)
[2018-04-01] MEDS: NYSTATIN CREAM 15 GM TP SCH ×2 (09:22→17:11)
[2018-04-01] MEDS: CEFEPIME 2 GM/D5W RTU 2 GM/50 ML RTUPB IV SCH ×2 (09:22→21:43)
--- NOTE | 2018-04-01 15:35 | PDOC PROGRESS REPORT ---
Subjective Progress Note for:: 04/01/18 Subjective:: Patient is awake but nonverbal. He is tolerating PEG feeds, now 45 ml/h. No nausea or vomiting, having bowel movement. Family at bedside. Reason For Visit: HYPOTENSION, DEHYDRATION, TACHCARDIA, ARF, ILLEUS Physical Exam Vital Signs: Temp Pulse Resp BP Pulse Ox 97.6 F 88 20 117/77 97 04/01/18 12:00 04/01/18 12:00 04/01/18 12:00 04/01/18 12:00 04/01/18 12:00 Intake & Output 03/31/18 04/01/18 04/02/18 06:59 06:59 06:59 Intake Total 1100 280 50 Output Total 1700 875 Balance -600 -595 50 Weight 58.7 kg 63.2 kg General appearance: PRESENT: no acute distress, thin male, cooperative Head exam: PRESENT: other - Right temporal wasting. ABSENT: atraumatic, normocephalic Eye exam: ABSENT: conjunctival injection, scleral icterus Ear exam: PRESENT: normal external ear exam Mouth exam: PRESENT: moist Neck exam: ABSENT: lymphadenopathy Respiratory exam: PRESENT: clear to auscultation eric, unlabored. ABSENT: rales , rhonchi, wheezes Cardiovascular exam: PRESENT: RRR. ABSENT: systolic murmur Pulses: PRESENT: normal radial pulses GI/Abdominal exam: PRESENT: distended, normal bowel sounds, soft, other - PEG tube in place without complication. ABSENT: tenderness Rectal exam: ABSENT: black stool, bloody stool Gentrourinary exam: PRESENT: indwelling catheter - Suprapubic catheter in place draining clear yellow urine Extremities exam: ABSENT: pedal edema Musculoskeletal exam: PRESENT: normal inspection Neurological exam: PRESENT: alert, awake, other - Inconsistently follows commands, aphasic Psychiatric exam: ABSENT: agitated, anxious Skin exam: PRESENT: dry, warm, other - Patient has stage II area of breakdown which is about coin sized over his buttock. That was dressed yesterday. He also has evidence of fungal infection in the groin and thomas-area and we are applying nystatin. Results Laboratory Results: 04/01/18 07:30 04/01/18 07:30 04/01/18 04/01/18 07:30 07:30 WBC 5.4 RBC 4.04 L Hgb 11.3 L Hct 34.0 L MCV 84 MCH 27.9 MCHC 33.1 RDW 15.0 H Plt Count 263 Sodium 141.8 Potassium 3.4 L Chloride 110 H Carbon Dioxide 23 Anion Gap 9 BUN 14 Creatinine 1.00 Est GFR ( Amer) > 60 Est GFR (Non-Af Amer) > 60 Glucose 119 H Calcium 9.9 Impressions: Chest X-Ray 03/28/18 16:21 IMPRESSION: COPD. NO ACUTE RADIOGRAPHIC FINDING IN THE CHEST. Abdomen X-Ray 03/28/18 17:51 IMPRESSION: GASEOUS DISTENTION THROUGHOUT THE SMALL BOWEL AND COLON. MAY BE DUE TO GENERALIZED ILEUS. MECHANICAL OBSTRUCTION UNLIKELY. Assessment & Plan - Diagnosis (1) Bacteremia due to Escherichia coli Is this a current diagnosis for this admission?: Yes (2) Ileus, unspecified Is this a current diagnosis for this admission?: Yes (3) UTI (urinary tract infection) Qualifiers: Urinary tract infection type: catheter-associated UTI Indwelling urinary catheter type: cystostomy catheter Encounter type: initial encounter Qualified Code(s): T83.510A - Infection and inflammatory reaction due to cystostomy catheter, initial encounter; N39.0 - Urinary tract infection, site not specified; N39.0 - Urinary tract infection, site not specified Is this a current diagnosis for this admission?: Yes (4) Dysphagia Is this a current diagnosis for this admission?: Yes (5) History of CVA with residual deficit Is this a current diagnosis for this admission?: Yes (6) Hypokalemia Is this a current diagnosis for this admission?: Yes - Plan Summary Plan Summary: Blood culture growing E. coli ESBL, sensitive to imipenem. Urine culture also growing E. coli ESBL, as well as Pseudomonas and and staph aureus, both sensitive to imipenem. Will repeat blood cultures and transition antibiotics to imipenem and DC cefepime. Continue PEG feeds as tolerated. Will replete potassium with KCl 40 M EQ p.o. x1.
[2018-04-01] MEDS ORDERED: POTASSIUM CHLORIDE 20 MEQ/15 ML UDCUP PO ONE (16:00)
[2018-04-01] MEDS: RIVAROXABAN 15 MG TABLET PEG SCH (17:10)
[2018-04-01] MEDS: ATORVASTATIN CALCIUM 40 MG TABLET PEG SCH (21:47)
[2018-04-02] MEDS: METOCLOPRAMIDE HCL ORAL SOLN 10 MG/10 ML UDCUP PEG SCH ×4 (00:33→17:29)
[2018-04-02] MEDS: LEVALBUTEROL HCL NEB 1.25 MG/3 ML AMPUL NEB SCH ×3 (00:41→16:10)
[2018-04-02] MEDS: IPRATROPIUM BROMIDE 0.02% NEB 0.5 MG/2.5 ML AMPUL NEB SCH ×3 (00:41→16:10)
[2018-04-02 07:01] LABS: ANION GAP 7 (5-19); BLOOD UREA NITROGEN 15 mg/dL (7-20); CARBON DIOXIDE 26 mmol/L (22-30); CHLORIDE 110 mmol/L (98-107); GLUCOSE 116 mg/dL (75-110); POTASSIUM 3.5 mmol/L (3.6-5.0)
[2018-04-02 07:02] LABS: CALCIUM 9.8 mg/dL (8.4-10.2)
[2018-04-02] MEDS: ACETAMINOPHEN 650 MG SUPP.RECT PR PRN (08:26)
[2018-04-02] MEDS: BUDESONIDE NEB 0.5 MG/2 ML AMPUL NEB SCH ×2 (08:58→21:01)
[2018-04-02] MEDS: POLYETHYLENE GLYCOL 3350 POWDER 17 GM/1 PACKET PEG PRN (09:59)
[2018-04-02] MEDS: FINASTERIDE 5 MG TABLET PO SCH (09:59)
[2018-04-02] MEDS: METOPROLOL TARTRATE 25 MG TABLET PEG SCH ×2 (10:00→22:07)
[2018-04-02] MEDS: ESCITALOPRAM OXALATE 10 MG TABLET PEG SCH (10:00)
[2018-04-02] MEDS: NYSTATIN CREAM 15 GM TP SCH ×2 (10:01→17:29)
[2018-04-02] MEDS: FAMOTIDINE INJ/PF 20 MG/2 ML SDV IV SCH ×2 (11:11→22:08)
[2018-04-02] MEDS: CEFEPIME 2 GM/D5W RTU 2 GM/50 ML RTUPB IV SCH (11:11)
[2018-04-02] MEDS: LACTULOSE SYRUP 20 GM/30 ML UDCUP PEG PRN (12:47)
[2018-04-02] MEDS: ERTAPENEM SODIUM 1 GM in NORMAL SALINE 50 ML IV SCH (15:12)
[2018-04-02] MEDS: RIVAROXABAN 15 MG TABLET PEG SCH (17:29)
--- NOTE | 2018-04-02 18:39 | PDOC PROGRESS REPORT ---
Subjective Progress Note for:: 04/02/18 Subjective:: Patient is awake but nonverbal. He is tolerating PEG feeds. No nausea or vomiting, having bowel movement. He is afebrile. Reason For Visit: HYPOTENSION, DEHYDRATION, TACHCARDIA, ARF, ILLEUS Physical Exam Vital Signs: Temp Pulse Resp BP Pulse Ox 97.5 F 79 18 124/80 95 04/02/18 11:40 04/02/18 11:40 04/02/18 11:40 04/02/18 11:40 04/02/18 11:40 Intake & Output 04/01/18 04/02/18 04/03/18 06:59 06:59 06:59 Intake Total 280 2596 80 Output Total 875 500 Balance -595 2096 80 Weight 63.2 kg 64.3 kg General appearance: PRESENT: no acute distress, thin male, cooperative Head exam: PRESENT: other - Right temporal wasting. ABSENT: atraumatic, normocephalic Eye exam: ABSENT: conjunctival injection, scleral icterus Ear exam: PRESENT: normal external ear exam Mouth exam: PRESENT: moist Neck exam: ABSENT: lymphadenopathy Respiratory exam: PRESENT: clear to auscultation eric, unlabored. ABSENT: rales , rhonchi, wheezes Cardiovascular exam: PRESENT: RRR. ABSENT: systolic murmur Pulses: PRESENT: normal radial pulses GI/Abdominal exam: PRESENT: distended, normal bowel sounds, soft, other - PEG tube in place without complication. ABSENT: tenderness Rectal exam: ABSENT: black stool, bloody stool Gentrourinary exam: PRESENT: indwelling catheter - Suprapubic catheter in place draining clear yellow urine Extremities exam: ABSENT: pedal edema Musculoskeletal exam: PRESENT: normal inspection Neurological exam: PRESENT: alert, awake, other - Inconsistently follows commands, aphasic Psychiatric exam: ABSENT: agitated, anxious Skin exam: PRESENT: dry, warm, other - Patient has stage II area of breakdown which is about coin sized over his buttock. That was dressed yesterday. He also has evidence of fungal infection in the groin and thomas-area and we are applying nystatin. Results Laboratory Results: 04/01/18 07:30 04/02/18 06:34 04/02/18 06:34 Sodium 143.0 Potassium 3.5 L Chloride 110 H Carbon Dioxide 26 Anion Gap 7 BUN 15 Creatinine 1.03 Est GFR ( Amer) > 60 Est GFR (Non-Af Amer) > 60 Glucose 116 H Calcium 9.8 Impressions: Chest X-Ray 03/28/18 16:21 IMPRESSION: COPD. NO ACUTE RADIOGRAPHIC FINDING IN THE CHEST. Abdomen X-Ray 03/28/18 17:51 IMPRESSION: GASEOUS DISTENTION THROUGHOUT THE SMALL BOWEL AND COLON. MAY BE DUE TO GENERALIZED ILEUS. MECHANICAL OBSTRUCTION UNLIKELY. Assessment & Plan - Diagnosis (1) Bacteremia due to Escherichia coli Is this a current diagnosis for this admission?: Yes (2) Ileus, unspecified Is this a current diagnosis for this admission?: Yes (3) UTI (urinary tract infection) Qualifiers: Urinary tract infection type: catheter-associated UTI Indwelling urinary catheter type: cystostomy catheter Encounter type: initial encounter Qualified Code(s): T83.510A - Infection and inflammatory reaction due to cystostomy catheter, initial encounter; N39.0 - Urinary tract infection, site not specified; N39.0 - Urinary tract infection, site not specified Is this a current diagnosis for this admission?: Yes (4) Dysphagia Is this a current diagnosis for this admission?: Yes (5) History of CVA with residual deficit Is this a current diagnosis for this admission?: Yes (6) Hypokalemia Is this a current diagnosis for this admission?: Yes - Plan Summary Plan Summary: Blood culture growing E. coli ESBL positive, sensitive to imipenem/ertapenem. Urine culture also growing E. coli ESBL +, as well as Pseudomonas and and staph aureus, both sensitive to imipenem/ertapenem. Repeated blood cultures this morning. Patient on cefepime since 03/29/18. Will DC cefepime and start ertapenem 1 g daily today, 04/02/18. Please followup repeat culture results. Continue PEG feeds as tolerated. Will replete potassium with KCl 40 M EQ p.o. x1.
[2018-04-02] MEDS ORDERED: POTASSIUM CHLORIDE 20 MEQ/15 ML UDCUP PO ONE (19:00)
[2018-04-02] MEDS ORDERED: POTASSIUM CHLORIDE 20 MEQ/15 ML UDCUP ONE (21:14)
[2018-04-02] MEDS: ATORVASTATIN CALCIUM 40 MG TABLET PEG SCH (22:08)
[2018-04-03] MEDS: METOCLOPRAMIDE HCL ORAL SOLN 10 MG/10 ML UDCUP PEG SCH ×4 (00:14→17:05)
[2018-04-03] MEDS: LEVALBUTEROL HCL NEB 1.25 MG/3 ML AMPUL NEB SCH ×3 (00:40→17:03)
[2018-04-03] MEDS: IPRATROPIUM BROMIDE 0.02% NEB 0.5 MG/2.5 ML AMPUL NEB SCH ×3 (00:40→17:03)
[2018-04-03 07:19] LABS: ABSOLUTE EOSINOPHILS # (AUTO) 0.4 10^3/uL (0.0-0.6); ABSOLUTE LYMPHOCYTES (AUTO) 1.1 10^3/uL (0.5-4.7); ABSOLUTE MONOCYTES (AUTO) 0.5 10^3/uL (0.1-1.4); ABSOLUTE NEUT (AUTO) 4.4 10^3/uL (1.7-8.2); BASOPHILS % (AUTO) 0.3 % (0-2); EOSINOPHILS % (AUTO) 6.1 % (0-6); HEMATOCRIT 32.1 % (37.9-51.0); HEMOGLOBIN 10.5 g/dL (13.5-17.0); LYMPHOCYTES % (AUTO) 17.6 % (13-45); MEAN CORPUSCULAR HEMOGLOBIN 27.8 pg (27.0-33.4); MEAN CORPUSCULAR HGB CONC 32.7 g/dL (32.0-36.0); MEAN CORPUSCULAR VOLUME 85 fl (80-97); MONOCYTES % (AUTO) 7.7 % (3-13); PLATELET COUNT 297 10^3/uL (150-450); RED BLOOD COUNT 3.76 10^6/uL (4.35-5.55); RED CELL DISTRIBUTION WIDTH 15.4 % (11.5-14.0); SEGMENTED NEUTROPHILS % (AUTO) 68.3 % (42-78); TOTAL CELLS COUNTED % (AUTO) 100 %; WHITE BLOOD COUNT 6.5 10^3/uL (4.0-10.5)
[2018-04-03 07:50] LABS: ANION GAP 5 (5-19); BLOOD UREA NITROGEN 14 mg/dL (7-20); CALCIUM 9.6 mg/dL (8.4-10.2); CARBON DIOXIDE 27 mmol/L (22-30); CHLORIDE 112 mmol/L (98-107); GLUCOSE 94 mg/dL (75-110); POTASSIUM 3.9 mmol/L (3.6-5.0); SODIUM 144.3 mmol/L (137-145)
[2018-04-03] MEDS: BUDESONIDE NEB 0.5 MG/2 ML AMPUL NEB SCH ×2 (08:05→21:05)
[2018-04-03] MEDS: ESCITALOPRAM OXALATE 10 MG TABLET PEG SCH (09:53)
[2018-04-03] MEDS: METOPROLOL TARTRATE 25 MG TABLET PEG SCH ×2 (09:53→21:57)
[2018-04-03] MEDS: NYSTATIN CREAM 15 GM TP SCH ×2 (09:54→17:05)
[2018-04-03] MEDS: FAMOTIDINE INJ/PF 20 MG/2 ML SDV IV SCH ×2 (09:54→21:57)
[2018-04-03] MEDS: POLYETHYLENE GLYCOL 3350 POWDER 17 GM/1 PACKET PEG PRN (09:56)
[2018-04-03] MEDS: FINASTERIDE 5 MG TABLET PO SCH (09:56)
[2018-04-03] MEDS: ERTAPENEM SODIUM 1 GM in NORMAL SALINE 50 ML IV SCH (14:11)
[2018-04-03] MEDS: RIVAROXABAN 15 MG TABLET PEG SCH (17:05)
--- NOTE | 2018-04-03 19:24 | PDOC PROGRESS REPORT ---
Subjective Progress Note for:: 04/03/18 Subjective:: This is 72 years old black male patient with history of devastating stroke which left him aphasic, dysphagia and neurologic deficits which left him bedridden. He is brought with hypotension and tachycardia. His blood culture grew E. coli and urine culture positive for Pseudomonas aeruginosa, E. coli and S. aureus and is being managed appropriately with appropriate antibiotics. This morning I seen patient resting in bed he is awake alert and he responds by nodding his head. Reason For Visit: HYPOTENSION, DEHYDRATION, TACHCARDIA, ARF, ILLEUS Physical Exam Vital Signs: Temp Pulse Resp BP Pulse Ox 98.3 F 82 14 121/62 95 04/03/18 15:48 04/03/18 17:03 04/03/18 17:03 04/03/18 15:48 04/03/18 17:03 Intake & Output 04/02/18 04/03/18 04/04/18 06:59 06:59 06:59 Intake Total 2596 160 50 Output Total 500 605 280 Balance 1207 -301 -367 Weight 64.3 kg 64 kg General appearance: PRESENT: no acute distress, well-developed, well-nourished Head exam: PRESENT: atraumatic, normocephalic Eye exam: ABSENT: scleral icterus Mouth exam: PRESENT: moist Neck exam: ABSENT: carotid bruit, JVD, lymphadenopathy, thyromegaly Respiratory exam: ABSENT: rales, rhonchi, wheezes Cardiovascular exam: PRESENT: RRR. ABSENT: diastolic murmur, rubs, systolic murmur Pulses: PRESENT: normal dorsalis pedis pul GI/Abdominal exam: PRESENT: normal bowel sounds, soft. ABSENT: distended, guarding, mass, organolmegaly, rebound, tenderness Rectal exam: PRESENT: deferred Extremities exam: PRESENT: full ROM. ABSENT: calf tenderness, clubbing, pedal edema Neurological exam: PRESENT: alert, awake Psychiatric exam: PRESENT: homicidal ideation, normal mood Skin exam: PRESENT: dry, intact, warm. ABSENT: cyanosis, rash Results Laboratory Results: 04/03/18 07:00 04/03/18 07:00 04/03/18 04/03/18 07:00 07:00 WBC 6.5 RBC 3.76 L Hgb 10.5 L Hct 32.1 L MCV 85 MCH 27.8 MCHC 32.7 RDW 15.4 H Plt Count 297 Seg Neutrophils % 68.3 Lymphocytes % 17.6 Monocytes % 7.7 Eosinophils % 6.1 H Basophils % 0.3 Absolute Neutrophils 4.4 Absolute Lymphocytes 1.1 Absolute Monocytes 0.5 Absolute Eosinophils 0.4 Absolute Basophils 0.0 Sodium 144.3 Potassium 3.9 Chloride 112 H Carbon Dioxide 27 Anion Gap 5 BUN 14 Creatinine 0.98 Est GFR ( Amer) > 60 Est GFR (Non-Af Amer) > 60 Glucose 94 Calcium 9.6 03/29/18 18:10 Suprapubic Catheter Urine Culture - Final Pseudomonas Aeruginosa Escherichia Coli Esbl Staphylococcus Aureus Impressions: Chest X-Ray 03/28/18 16:21 IMPRESSION: COPD. NO ACUTE RADIOGRAPHIC FINDING IN THE CHEST. Abdomen X-Ray 03/28/18 17:51 IMPRESSION: GASEOUS DISTENTION THROUGHOUT THE SMALL BOWEL AND COLON. MAY BE DUE TO GENERALIZED ILEUS. MECHANICAL OBSTRUCTION UNLIKELY. Assessment & Plan - Diagnosis (1) Sepsis Is this a current diagnosis for this admission?: Yes Plan: Continue current antibiotics (2) Bacteremia due to Escherichia coli Is this a current diagnosis for this admission?: Yes Plan: Continue current antibiotic (3) Hypernatremia Is this a current diagnosis for this admission?: Yes Plan: Improving (4) Ileus, unspecified Is this a current diagnosis for this admission?: Yes Plan: Improved (5) Acute renal insufficiency Is this a current diagnosis for this admission?: Yes Plan: Improving (6) Complicated urinary tract infection Is this a current diagnosis for this admission?: Yes Plan: Patient has history of recurrent UTI. Chronic suprapubic Pickard catheter placement. We will continue current antibiotics
[2018-04-03] MEDS: ATORVASTATIN CALCIUM 40 MG TABLET PEG SCH (21:57)
[2018-04-04] MEDS: LEVALBUTEROL HCL NEB 1.25 MG/3 ML AMPUL NEB SCH ×3 (00:32→17:45)
[2018-04-04] MEDS: IPRATROPIUM BROMIDE 0.02% NEB 0.5 MG/2.5 ML AMPUL NEB SCH ×3 (00:32→17:45)
[2018-04-04] MEDS: METOCLOPRAMIDE HCL ORAL SOLN 10 MG/10 ML UDCUP PEG SCH ×4 (01:12→17:02)
[2018-04-04] MEDS: BUDESONIDE NEB 0.5 MG/2 ML AMPUL NEB SCH ×2 (08:28→20:45)
--- NOTE | 2018-04-04 09:00 | PDOC TRANSFER SUMMARY ---
General - Admit/Disc Date/PCP Admission Date/Primary Care Provider: 03/28/18 20:35 SOL RODRIGUEZ MD Discharge Date: 04/04/18 - Discharge Diagnosis (1) Sepsis Is this a current diagnosis for this admission?: Yes (2) Bacteremia due to Escherichia coli Is this a current diagnosis for this admission?: Yes (3) Hypernatremia Is this a current diagnosis for this admission?: Yes (4) Ileus, unspecified Is this a current diagnosis for this admission?: Yes (5) Acute renal insufficiency Is this a current diagnosis for this admission?: Yes (6) Complicated urinary tract infection Is this a current diagnosis for this admission?: Yes - Additional Information Resuscitation Status: Full Code Home Medications: Acetaminophen [Tylenol] 650 mg PEG Q6HP PRN 03/28/18 Albuterol Sulfate [Ventolin 0.083% Neb 2.5 mg/3 ml Ampul] 1 vial NEB RTQ3HP PRN 03/28/18 Atorvastatin Calcium [Lipitor 40 mg Tablet] 40 mg PEG QHS 03/28/18 Bisacodyl [Dulcolax 10 mg Supp.rect] 10 mg IN DAILY 03/28/18 Dexlansoprazole [Dexilant 30 mg Capsule] 30 mg PEG DAILY 03/28/18 Escitalopram Oxalate [Lexapro 10 mg Tablet] 10 mg PEG DAILY 03/28/18 Hyoscyamine Sulfate 0.125 mg SL Q4HP PRN 03/28/18 Ipratropium/Albuterol Sulfate [Duoneb 3 ml Ampul] 3 ml NEB RTQ6 03/28/18 Metoclopramide HCl [Reglan] 5 mg PEG Q8 03/28/18 Metoprolol Tartrate [Lopressor 25 mg Tablet] 12.5 mg PEG Q12 18 Polyethylene Glycol 3350 [Miralax Powder 17 gm/Packet] 1 packet PEG DAILY 03/28/18 Rivaroxaban [Xarelto 15 mg Tablet] 15 mg PEG DAILY 03/28/18 Simethicone [Mylicon 80 mg Chewable Tablet] 80 mg PEG Q6HP PRN 18 Tiotropium Ass[place] [Spiriva Handihaler 5 Cap/Kit (18 Mcg/Cap)] 1 cap IH DAILY 03/28/18 History of Present Illness Admission Date/PCP: 03/28/18 20:35 SOL RODRIGUEZ MD History of Present Illness: DALY PORTILLO SR is a 72 year old male [facility] who presented to the emergency room with his because he had been experiencing an increased heart rate and [facility]. Patient is nonverbal and is unable to can contribute substantially meaningful information to his medical care. His indicates that he has been having abdominal distention and apparent abdominal pain or discomfort for the last several days and he has become very constipated. She is concerned that today he seemed to be somewhat decreased in his mental status and was also noted to have some increased difficulty breathing and appeared to be in some mild respiratory distress with tachypnea. He was not noted to be coughing or wheezing and the tachypnea was associated with an episode in which he appeared to be having significant transcient abdominal cramping pain. On exam in the emergency room the patient was found to have a sodium of 150 and increase in his BUN and creatinine over his normal baseline consistent with acute renal failure. With these findings the patient was admitted for further evaluation and treatment including rehydra tion. 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 He is brought with hypotension and tachycardia. His blood culture grew E. coli and urine culture positive for Pseudomonas aeruginosa, E. coli and S. aureus and is being managed appropriately with and out. This morning I seen patient resting in bed he is awake alert and he responds he feels okay by nodding his head. Patient already got 3 days of ertapenem and I will continue his antibiotic for additional 7 days. His vital signs are stable and his repeat blood cultures negative for E. coli. I will continue all his home medications. Physical Exam Vital Signs: Temp Pulse Resp BP Pulse Ox 98.3 F 81 14 126/73 H 92 04/04/18 07:44 04/04/18 08:28 04/04/18 08:28 04/04/18 07:44 04/04/18 08:28 Intake & Output 04/03/18 04/04/18 04/05/18 06:59 06:59 06:59 Intake Total 160 50 30 Output Total 605 680 Balance -445 -630 30 Weight 64 kg 63.8 kg General appearance: PRESENT: no acute distress Head exam: PRESENT: atraumatic Neck exam: ABSENT: carotid bruit, JVD, lymphadenopathy, thyromegaly Respiratory exam: PRESENT: clear to auscultation eric. ABSENT: rales, rhonchi, wheezes Cardiovascular exam: PRESENT: RRR. ABSENT: diastolic murmur, rubs, systolic murmur GI/Abdominal exam: PRESENT: normal bowel sounds, soft. ABSENT: distended, guarding, mass, organolmegaly, rebound, tenderness Neurological exam: PRESENT: alert, awake Results Laboratory Results: 04/03/18 07:00 04/03/18 07:00 03/28/18 17:10 Blood Blood Culture - Final Escherichia Coli Esbl 03/29/18 18:10 Suprapubic Catheter Urine Culture - Final Pseudomonas Aeruginosa Escherichia Coli Esbl Staphylococcus Aureus 03/28/18 03/28/18 17:10 17:10 Creatine Kinase 107 CK-MB (CK-2) 1.01 Troponin I 0.013 Impressions: Chest X-Ray 03/28/18 16:21 IMPRESSION: COPD. NO ACUTE RADIOGRAPHIC FINDING IN THE CHEST. Abdomen X-Ray 03/28/18 17:51 IMPRESSION: GASEOUS DISTENTION THROUGHOUT THE SMALL BOWEL AND COLON. MAY BE DUE TO GENERALIZED ILEUS. MECHANICAL OBSTRUCTION UNLIKELY. Qualifiers - * PATIENT BEING DISCHARGED WITH ANY OF THE FOLLOWING DIAGNOSIS: No
[2018-04-04] MEDS: ESCITALOPRAM OXALATE 10 MG TABLET PEG SCH (09:09)
[2018-04-04] MEDS: FINASTERIDE 5 MG TABLET PO SCH (09:09)
[2018-04-04] MEDS: FAMOTIDINE INJ/PF 20 MG/2 ML SDV IV SCH (09:09)
[2018-04-04] MEDS: METOPROLOL TARTRATE 25 MG TABLET PEG SCH (09:09)
[2018-04-04] MEDS: NYSTATIN CREAM 15 GM TP SCH ×2 (09:12→17:02)
--- NOTE | 2018-04-04 09:55 | PDOC PROGRESS REPORT ---
Subjective Subjective:: I seen patient resting in bed comfortably. No significant event overnight. Reason For Visit: HYPOTENSION, DEHYDRATION, TACHCARDIA, ARF, ILLEUS Physical Exam Vital Signs: Temp Pulse Resp BP Pulse Ox 98.3 F 81 14 126/73 H 92 04/04/18 07:44 04/04/18 08:28 04/04/18 08:28 04/04/18 07:44 04/04/18 08:28 Intake & Output 04/03/18 04/04/18 04/05/18 06:59 06:59 06:59 Intake Total 160 50 30 Output Total 605 680 Balance -445 -630 30 Weight 64 kg 63.8 kg General appearance: PRESENT: no acute distress Head exam: PRESENT: atraumatic Eye exam: PRESENT: conjunctiva pink Neck exam: ABSENT: carotid bruit, JVD, lymphadenopathy, thyromegaly Respiratory exam: PRESENT: clear to auscultation eric. ABSENT: rales, rhonchi, wheezes Cardiovascular exam: PRESENT: RRR. ABSENT: diastolic murmur, rubs, systolic murmur Neurological exam: PRESENT: alert, awake Results Laboratory Results: 04/03/18 07:00 04/03/18 07:00 03/28/18 17:10 Blood Blood Culture - Final Escherichia Coli Esbl 03/29/18 18:10 Suprapubic Catheter Urine Culture - Final Pseudomonas Aeruginosa Escherichia Coli Esbl Staphylococcus Aureus 03/28/18 03/28/18 17:10 17:10 Creatine Kinase 107 CK-MB (CK-2) 1.01 Troponin I 0.013 Impressions: Chest X-Ray 03/28/18 16:21 IMPRESSION: COPD. NO ACUTE RADIOGRAPHIC FINDING IN THE CHEST. Abdomen X-Ray 03/28/18 17:51 IMPRESSION: GASEOUS DISTENTION THROUGHOUT THE SMALL BOWEL AND COLON. MAY BE DUE TO GENERALIZED ILEUS. MECHANICAL OBSTRUCTION UNLIKELY. Assessment & Plan - Diagnosis (1) Sepsis Is this a current diagnosis for this admission?: Yes Plan: Continue current antibiotics (2) Bacteremia due to Escherichia coli Is this a current diagnosis for this admission?: Yes Plan: Continue current antibiotic (3) Hypernatremia Is this a current diagnosis for this admission?: Yes Plan: Improving (4) Ileus, unspecified Is this a current diagnosis for this admission?: Yes Plan: Improved (5) Acute renal insufficiency Is this a current diagnosis for this admission?: Yes Plan: Improving (6) Complicated urinary tract infection Is this a current diagnosis for this admission?: Yes Plan: Patient has history of recurrent UTI. Chronic suprapubic Pickard catheter placement. We will continue current antibiotics
[2018-04-04] MEDS: LACTULOSE SYRUP 20 GM/30 ML UDCUP PEG PRN (11:39)
--- NOTE | 2018-04-04 13:11 | RADIOLOGY REPORT (SQ) ---
EXAM DESCRIPTION: PICC INSERTION COMPLETED DATE/TIME: 04/04/2018 11:35 am REASON FOR STUDY: IV antibiotics COMPARISON: None. FLUOROSCOPY TIME: 0.1 minutes 2 images saved to PACS. TECHNIQUE: Fluoroscopic and ultrasound guided PICC placement. LIMITATIONS: None. PROCEDURE: After written consent and assessment were obtained, the patient was brought into the fluo roscopy room and placed supine on the table. Ultrasound evaluation of potential access sites were per formed. After successfully identifying a patent right basilic vein, the right arm was prepped and mary ped in a sterile fashion along with the ultrasound probe. The entry site was anesthetized with 1% lid ocaine. A 21 gauge 7 cm needle was advanced through the skin and into the basilic vein under live ult rasound guidance. An ultrasound image was saved to PACS confirming access site. A .018 guide wire w as then inserted through the needle and into the venous system. The needle was then removed and an 11 blade scalpel was used to make a 1cm skin incision. A 5 fr peel-away sheath was advanced over the w tio and into the venous system. A measurement was then made using the existing wire and live fluorosc opic guidance. The wire was then removed and trimmed. The PICC was advanced through the peel-away she ath and into the venous system. The peel-away sheath was removed and the catheter was adhered to the patients arm with a stat lock. The catheter was then aspirated and flushed and a sterile bandage was placed over the access site. A fluoroscopic spot image was saved to PACS confirming the catheter tip within the superior vena cava. IMPRESSION: SUCCESSFUL PLACEMENT OF A 5 FR DUAL LUMEN 35 CM PICC IN THE RIGHT BASILIC VEIN. COMMENT: Patient medication list reviewed: Yes- Quality ID# [id number]:Eligible professional attests to doc umenting in the medical record they obtained, updated, or reviewed the patient's current medications. . Quality ID 145: Final reports for procedures using fluoroscopy that document radiation exposure kirsten linden, or exposure time and number of fluorographic images (if radiation exposure indices are not avail able) Quality ID #76: The patient was prepped and draped using maximum sterile barrier technique including cap, mask, sterile gown, sterile gloves, a large sterile sheet, hand hygiene, and 2% Chlorhexidine fo r cutaneous antisepsis. When ultrasound is used, sterile ultrasound techniques are followed requiring sterile gel and sterile probes. TECHNICAL DOCUMENTATION: JOB ID: [id number] [employer]- All Rights Reserved rev-09/01 Reading location - IP/workstation name: [facility]
[2018-04-04] MEDS: ERTAPENEM SODIUM 1 GM in NORMAL SALINE 50 ML IV SCH (14:01)
--- NOTE | 2018-04-04 16:07 | RADIOLOGY REPORT (SQ) ---
EXAM DESCRIPTION: U/S GUIDE FOR VASCULAR ACCESS; FLUORO/CV PLACEMENT COMPLETE DATE/TIME: 04/04/2018 3:11 pm REASON FOR STUDY: IV ABX FINDINGS: Please see combined report for performance of procedure and radiologic supervision and int erpretation. IMPRESSION: Please see combined report for performance of procedure and radiologic supervision and i nterpretation. Reading location - IP/workstation name: [facility]-[email or web address]
--- NOTE | 2018-04-04 16:07 | RADIOLOGY REPORT (SQ) ---
EXAM DESCRIPTION: U/S GUIDE FOR VASCULAR ACCESS; FLUORO/CV PLACEMENT COMPLETE DATE/TIME: 04/04/2018 3:11 pm REASON FOR STUDY: IV ABX FINDINGS: Please see combined report for performance of procedure and radiologic supervision and int erpretation. IMPRESSION: Please see combined report for performance of procedure and radiologic supervision and i nterpretation. Reading location - IP/workstation name: [id number]
[2018-04-04] MEDS: RIVAROXABAN 15 MG TABLET PEG SCH (17:02)
[2018-04-05] MEDS: IPRATROPIUM BROMIDE 0.02% NEB 0.5 MG/2.5 ML AMPUL NEB SCH ×3 (00:29→16:39)
[2018-04-05] MEDS: LEVALBUTEROL HCL NEB 1.25 MG/3 ML AMPUL NEB SCH ×3 (00:29→16:39)
[2018-04-05] MEDS: METOPROLOL TARTRATE 25 MG TABLET PEG SCH ×3 (01:36→21:45)
[2018-04-05] MEDS: ATORVASTATIN CALCIUM 40 MG TABLET PEG SCH ×2 (01:36→21:44)
[2018-04-05] MEDS: FAMOTIDINE INJ/PF 20 MG/2 ML SDV IV SCH ×3 (01:38→21:47)
[2018-04-05] MEDS: METOCLOPRAMIDE HCL ORAL SOLN 10 MG/10 ML UDCUP PEG SCH ×4 (01:39→16:59)
[2018-04-05] MEDS: BUDESONIDE NEB 0.5 MG/2 ML AMPUL NEB SCH ×2 (08:56→20:17)
--- NOTE | 2018-04-05 10:05 | RADIOLOGY REPORT (SQ) ---
EXAM DESCRIPTION: ABDOMEN 2 VIEWS COMPLETED DATE/TIME: 04/05/2018 9:47 am REASON FOR STUDY: R/O bowel obstruction COMPARISON: 03/28/2018. NUMBER OF VIEWS: Two views. TECHNIQUE: Supine and erect/decubitus radiographic images of the abdomen acquired. LIMITATIONS: None. FINDINGS: FREE AIR: None. No abnormal gas collections. LUNG BASES: Clear. BOWEL GAS PATTERN: Diffuse gas throughout the small bowel and colon, similar to the prior study. No s ignificant dilation. No air fluid levels. CALCIFICATIONS: No suspicious calcifications. SOFT TISSUES: No gross mass or suggestion of organomegaly. HARDWARE: Gastrostomy tube. BONES: No acute fracture. No worrisome bone lesions. OTHER: No other significant finding. IMPRESSION: DIFFUSE GAS THROUGHOUT THE BOWEL, SIMILAR TO THE PRIOR STUDY. TECHNICAL DOCUMENTATION: JOB ID: [id number] [employer]- All Rights Reserved Reading location - IP/workstation name: [email or web address]
[2018-04-05] MEDS: ESCITALOPRAM OXALATE 10 MG TABLET PEG SCH (10:18)
[2018-04-05] MEDS: FINASTERIDE 5 MG TABLET PO SCH (10:18)
[2018-04-05] MEDS: SIMETHICONE 80 MG TAB.CHEW PEG PRN ×2 (10:26→16:59)
[2018-04-05] MEDS: ACETAMINOPHEN 650 MG SUPP.RECT PR PRN (10:26)
[2018-04-05] MEDS: NYSTATIN CREAM 15 GM TP SCH ×2 (13:01→17:00)
--- NOTE | 2018-04-05 13:39 | PDOC PROGRESS REPORT ---
Subjective Progress Note for:: 04/05/18 Subjective:: Patient is propped up in bed. He complains of abdominal discomfort. His abdomen is grossly distended. On percussion it is tympanitic and bowel sound is heard. KUB is done and reported gaseous distention. Is given simethicone. I am about to discharge this patient but does do this acute event we will keep him overnight if he is improved he is a candidate for discharge tomorrow. Reason For Visit: HYPOTENSION, DEHYDRATION, TACHCARDIA, ARF, ILLEUS Physical Exam Vital Signs: Temp Pulse Resp BP Pulse Ox 97.4 F 84 16 122/77 98 04/05/18 12:00 04/05/18 12:00 04/05/18 12:00 04/05/18 12:00 04/05/18 12:00 Intake & Output 04/04/18 04/05/18 04/06/18 06:59 06:59 06:59 Intake Total 50 320 Output Total 680 300 Balance -630 20 Weight 63.8 kg 63 kg General appearance: PRESENT: mild distress Head exam: PRESENT: atraumatic Eye exam: PRESENT: conjunctiva pink Neck exam: ABSENT: carotid bruit, JVD, lymphadenopathy, thyromegaly Respiratory exam: PRESENT: clear to auscultation eric. ABSENT: rales, rhonchi, wheezes Cardiovascular exam: PRESENT: RRR. ABSENT: diastolic murmur, rubs, systolic murmur GI/Abdominal exam: PRESENT: distended Neurological exam: PRESENT: alert, awake Results Laboratory Results: 04/03/18 07:00 04/03/18 07:00 03/28/18 03/28/18 17:10 17:10 Creatine Kinase 107 CK-MB (CK-2) 1.01 Troponin I 0.013 Impressions: Chest X-Ray 03/28/18 16:21 IMPRESSION: COPD. NO ACUTE RADIOGRAPHIC FINDING IN THE CHEST. Guidance Fluoroscopy 04/04/18 00:00 IMPRESSION: Please see combined report for performance of procedure and radiologic supervision and interpretation. Interventional Vascular Procedure 04/04/18 00:00 IMPRESSION: Please see combined report for performance of procedure and radiologic supervision and interpretation. PICC Line Insertion 04/04/18 00:00 IMPRESSION: SUCCESSFUL PLACEMENT OF A 5 FR DUAL LUMEN 35 CM PICC IN THE RIGHT BASILIC VEIN. Abdomen X-Ray 04/05/18 00:00 IMPRESSION: DIFFUSE GAS THROUGHOUT THE BOWEL, SIMILAR TO THE PRIOR STUDY. Assessment & Plan - Diagnosis (1) Abdominal distension (gaseous) Is this a current diagnosis for this admission?: Yes Plan: We will give him simethicone if he does not respond to we will put rectal tube. (2) Sepsis Is this a current diagnosis for this admission?: Yes Plan: Continue current antibiotics (3) Bacteremia due to Escherichia coli Is this a current diagnosis for this admission?: Yes Plan: Continue current antibiotic (4) Hypernatremia Is this a current diagnosis for this admission?: Yes Plan: Improving (5) Ileus, unspecified Is this a current diagnosis for this admission?: Yes Plan: Improved (6) Acute renal insufficiency Is this a current diagnosis for this admission?: Yes Plan: Improving (7) Complicated urinary tract infection Is this a current diagnosis for this admission?: Yes Plan: Patient has history of recurrent UTI. Chronic suprapubic Pickard catheter placement. We will continue current antibiotics
[2018-04-05] MEDS: ERTAPENEM SODIUM 1 GM in NORMAL SALINE 50 ML IV SCH (14:00)
[2018-04-05] MEDS: RIVAROXABAN 15 MG TABLET PEG SCH (16:59)
[2018-04-06] MEDS: IPRATROPIUM BROMIDE 0.02% NEB 0.5 MG/2.5 ML AMPUL NEB SCH ×4 (00:23→23:57)
[2018-04-06] MEDS: LEVALBUTEROL HCL NEB 1.25 MG/3 ML AMPUL NEB SCH ×4 (00:23→23:57)
[2018-04-06] MEDS: METOCLOPRAMIDE HCL ORAL SOLN 10 MG/10 ML UDCUP PEG SCH ×4 (06:43→18:34)
[2018-04-06] MEDS: BUDESONIDE NEB 0.5 MG/2 ML AMPUL NEB SCH ×2 (08:38→21:07)
[2018-04-06] MEDS: ESCITALOPRAM OXALATE 10 MG TABLET PEG SCH (10:34)
[2018-04-06] MEDS: METOPROLOL TARTRATE 25 MG TABLET PEG SCH ×2 (10:34→22:14)
[2018-04-06] MEDS: POLYETHYLENE GLYCOL 3350 POWDER 17 GM/1 PACKET PEG PRN (10:36)
[2018-04-06] MEDS: FAMOTIDINE INJ/PF 20 MG/2 ML SDV IV SCH ×2 (10:36→22:14)
[2018-04-06] MEDS: NYSTATIN CREAM 15 GM TP SCH (10:39)
[2018-04-06] MEDS: SIMETHICONE 80 MG TAB.CHEW PEG PRN ×2 (10:46→16:27)
--- NOTE | 2018-04-06 14:34 | PDOC PROGRESS REPORT ---
Subjective Progress Note for:: 04/06/18 Subjective:: This morning I seen patient resting in bed and still has abdominal distention. After he was given MiraLAX and simethicone patient passed stool and gas but still has distention and his states that she is not comfortable to take him home today and so we will observe him 1 more night. Reason For Visit: HYPOTENSION, DEHYDRATION, TACHCARDIA, ARF, ILLEUS Physical Exam Vital Signs: Temp Pulse Resp BP Pulse Ox 98.4 F 96 16 155/91 H 97 04/06/18 12:00 04/06/18 12:00 04/06/18 12:00 04/06/18 12:00 04/06/18 12:00 Intake & Output 04/05/18 04/06/18 04/07/18 06:59 06:59 06:59 Intake Total 320 110 Output Total 300 Balance 20 110 Weight 63 kg 62.9 kg General appearance: PRESENT: no acute distress Head exam: PRESENT: atraumatic Eye exam: PRESENT: conjunctiva pink Neck exam: ABSENT: carotid bruit, JVD, lymphadenopathy, thyromegaly Respiratory exam: PRESENT: clear to auscultation eric. ABSENT: rales, rhonchi, wheezes Cardiovascular exam: PRESENT: RRR. ABSENT: diastolic murmur, rubs, systolic murmur GI/Abdominal exam: PRESENT: distended, hypoactive bowel sounds Extremities exam: PRESENT: full ROM. ABSENT: calf tenderness, clubbing, pedal edema Results Laboratory Results: 04/03/18 07:00 04/03/18 07:00 03/28/18 03/28/18 17:10 17:10 Creatine Kinase 107 CK-MB (CK-2) 1.01 Troponin I 0.013 Impressions: Chest X-Ray 03/28/18 16:21 IMPRESSION: COPD. NO ACUTE RADIOGRAPHIC FINDING IN THE CHEST. Guidance Fluoroscopy 04/04/18 00:00 IMPRESSION: Please see combined report for performance of procedure and radiol ogic supervision and interpretation. Interventional Vascular Procedure 04/04/18 00:00 IMPRESSION: Please see combined report for performance of procedure and radiologic supervision and interpretation. PICC Line Insertion 04/04/18 00:00 IMPRESSION: SUCCESSFUL PLACEMENT OF A 5 FR DUAL LUMEN 35 CM PICC IN THE RIGHT BASILIC VEIN. Abdomen X-Ray 04/05/18 00:00 IMPRESSION: DIFFUSE GAS THROUGHOUT THE BOWEL, SIMILAR TO THE PRIOR STUDY. Assessment & Plan - Diagnosis (1) Abdominal distension (gaseous) Is this a current diagnosis for this admission?: Yes Plan: Continue simethicone (2) Sepsis Is this a current diagnosis for this admission?: Yes Plan: Continue current antibiotics (3) Bacteremia due to Escherichia coli Is this a current diagnosis for this admission?: Yes Plan: Continue current antibiotic (4) Hypernatremia Is this a current diagnosis for this admission?: Yes Plan: Improving (5) Ileus, unspecified Is this a current diagnosis for this admission?: Yes Plan: Improved (6) Acute renal insufficiency Is this a current diagnosis for this admission?: Yes Plan: Improving (7) Complicated urinary tract infection Is this a current diagnosis for this admission?: Yes Plan: Patient has history of recurrent UTI. Chronic suprapubic Pickard catheter placement. We will continue current antibiotics
[2018-04-06] MEDS: FINASTERIDE 5 MG TABLET PO SCH (16:24)
[2018-04-06] MEDS: ERTAPENEM SODIUM 1 GM in NORMAL SALINE 50 ML IV SCH (18:32)
[2018-04-06] MEDS: RIVAROXABAN 15 MG TABLET PEG SCH (18:35)
[2018-04-06] MEDS: ATORVASTATIN CALCIUM 40 MG TABLET PEG SCH (22:14)
[2018-04-07] MEDS: METOCLOPRAMIDE HCL ORAL SOLN 10 MG/10 ML UDCUP PEG SCH ×5 (00:32→23:50)
[2018-04-07] MEDS: LEVALBUTEROL HCL NEB 1.25 MG/3 ML AMPUL NEB SCH ×2 (09:08→16:27)
[2018-04-07] MEDS: BUDESONIDE NEB 0.5 MG/2 ML AMPUL NEB SCH ×2 (09:08→21:29)
[2018-04-07] MEDS: IPRATROPIUM BROMIDE 0.02% NEB 0.5 MG/2.5 ML AMPUL NEB SCH ×2 (09:08→16:27)
--- NOTE | 2018-04-07 10:39 | PDOC DISCHARGE SUMMARY ---
General - Admit/Disc Date/PCP Admission Date/Primary Care Provider: 03/28/18 20:35 SOL RODRIGUEZ MD Discharge Date: 04/07/18 - Discharge Diagnosis (1) Abdominal distension (gaseous) Is this a current diagnosis for this admission?: Yes (2) Sepsis Is this a current diagnosis for this admission?: Yes (3) Bacteremia due to Escherichia coli Is this a current diagnosis for this admission?: Yes (4) Hypernatremia Is this a current diagnosis for this admission?: Yes (5) Ileus, unspecified Is this a current diagnosis for this admission?: Yes (6) Acute renal insufficiency Is this a current diagnosis for this admission?: Yes (7) Complicated urinary tract infection Is this a current diagnosis for this admission?: Yes - Additional Information Resuscitation Status: Full Code Prescriptions: Ertapenem Sodium [Ertapenem] 1 gm IJ DAILY 7 Days #7 vial Ertapenem Sodium [Invanz Inj 1 gm Vial] 1 gm IV DAILY@1500 7 Days #7 vial Home Medications: Acetaminophen [Tylenol] 650 mg PEG Q6HP PRN 03/28/18 Albuterol Sulfate [Ventolin 0.083% Neb 2.5 mg/3 mL Ampul] 1 vial NEB RTQ3HP PRN 03/28/18 Atorvastatin Calcium [Lipitor 40 mg Tablet] 40 mg PEG QHS 03/28/18 Bisacodyl [Dulcolax 10 mg Supp.rect] 10 mg WA DAILY 03/28/18 Dexlansoprazole [Dexilant 30 mg Capsule] 30 mg PEG DAILY 03/28/18 Escitalopram Oxalate [Lexapro 10 mg Tablet] 10 mg PEG DAILY 03/28/18 Hyoscyamine Sulfate 0.125 mg SL Q4HP PRN 03/28/18 Ipratropium/Albuterol Sulfate [Duoneb 3 ml Ampul] 3 ml NEB RTQ6 03/28/18 Metoclopramide HCl [Reglan] 5 mg PEG Q8 03/28/18 Metoprolol Tartrate [Lopressor 25 mg Tablet] 12.5 mg PEG Q12 03/28/18 Polyethylene Glycol 3350 [Miralax Powder 17 gm/Packet] 1 packet PEG DAILY 03/28/18 Rivaroxaban [Xarelto 15 mg Tablet] 15 mg PEG DAILY 03/28/18 Simethicone [Mylicon 80 mg Chewable Tablet] 80 mg PEG Q6HP PRN 03/28/18 Tiotropium [place] [Spiriva Handihaler 5 Cap/Kit (18 Mcg/Cap)] 1 cap IH DAILY 03/28/18 Ertapenem Sodium [Invanz Inj 1 gm Vial] 1 gm IV DAILY@1500 7 Days #7 vial 04/04/18 Ertapenem Sodium [Ertapenem] 1 gm IJ DAILY 7 Days #7 vial 04/07/18 History of Present Illness History of Present Illness: DALY PORTILLO SR is a 72 year old male prison resident who presented to the emergency room with his because he had been experiencing an increased heart rate and hypotension at the prison. Patient is nonverbal and is unable to can contribute substantially meaningful information to his medical c are. His indicates that he has been having abdominal distention and apparent abdominal pain or discomfort for the last several days and he has become very constipated. She is concerned that today he seemed to be somewhat decreased in his mental status and was also noted to have some increased difficulty breathing and appeared to be in some mild respiratory distress with tachypnea. He was not noted to be coughing or wheezing and the tachypnea was associated with an episode in which he appeared to be having significant transcient abdominal cramping pain. On exam in the emergency room the patient was found to have a sodium of 150 and increase in his BUN and creatinine over his normal baseline consistent with acute renal failure. With these findings the patient was admitted for further evaluation and treatment including rehydration. 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 He is brought with hypotension and tachycardia. His blood culture grew E. coli and urine culture positive for Pseudomonas aeruginosa, E. coli and S. aureus and is being managed appropriately with and out. This morning I seen patient resting in bed he is awake alert and he responds he feels okay by nodding his head. Patient already got 3 days of ertapenem and I will continue his antibiotic for additional 7 days. His vital signs are stable and his repeat blood cultures negative for E. coli. I will continue all his home medications. Physical Exam Vital Signs: Temp Pulse Resp BP Pulse Ox 98.4 F 69 16 137/86 H 97 04/07/18 08:00 04/07/18 09:09 04/07/18 09:09 04/07/18 08:00 04/07/18 09:09 Intake & Output 04/06/18 04/07/18 04/08/18 06:59 06:59 06:59 Intake Total 110 2025 Output Total 300 Balance 110 1725 Weight 62.9 kg 64.7 kg General appearance: PRESENT: no acute distress Head exam: PRESENT: atraumatic Eye exam: PRESENT: conjunctiva pink Mouth exam: PRESENT: moist Respiratory exam: PRESENT: clear to auscultation eric. ABSENT: rales, rhonchi, wheezes Cardiovascular exam: PRESENT: RRR. ABSENT: diastolic murmur, rubs, systolic murmur GI/Abdominal exam: PRESENT: distended - mildly Neurological exam: PRESENT: alert, awake Results Laboratory Results: 04/03/18 07:00 04/03/18 07:00 04/02/18 07:40 Blood Blood Culture - Final NO GROWTH IN 5 DAYS 04/02/18 06:34 Blood Blood Culture - Final NO GROWTH IN 5 DAYS 03/28/18 03/28/18 17:10 17:10 Creatine Kinase 107 CK-MB (CK-2) 1.01 Troponin I 0.013 Impressions: Chest X-Ray 03/28/18 16:21 IMPRESSION: COPD. NO ACUTE RADIOGRAPHIC FINDING IN THE CHEST. Guidance Fluoroscopy 04/04/18 00:00 IMPRESSION: Please see combined report for performance of procedure and radiologic supervision and interpretation. Interventional Vascular Procedure 04/04/18 00:00 IMPRESSION: Please see combined report for performance of procedure and radiologic supervision and interpretation. PICC Line Insertion 04/04/18 00:00 IMPRESSION: SUCCESSFUL PLACEMENT OF A 5 FR DUAL LUMEN 35 CM PICC IN THE RIGHT BASILIC VEIN. Abdomen X-Ray 04/05/18 00:00 IMPRESSION: DIFFUSE GAS THROUGHOUT THE BOWEL, SIMILAR TO THE PRIOR STUDY. Qualifiers - * PATIENT BEING DISCHARGED WITH ANY OF THE FOLLOWING DIAGNOSIS: No
[2018-04-07] MEDS: POLYETHYLENE GLYCOL 3350 POWDER 17 GM/1 PACKET PEG PRN (10:57)
[2018-04-07] MEDS: FAMOTIDINE INJ/PF 20 MG/2 ML SDV IV SCH ×2 (10:59→21:22)
[2018-04-07] MEDS: METOPROLOL TARTRATE 25 MG TABLET PEG SCH ×2 (10:59→21:22)
[2018-04-07] MEDS: SIMETHICONE 80 MG TAB.CHEW PEG PRN (11:02)
[2018-04-07] MEDS: ESCITALOPRAM OXALATE 10 MG TABLET PEG SCH (11:04)
[2018-04-07] MEDS: FINASTERIDE 5 MG TABLET PO SCH (11:04)
[2018-04-07] MEDS: ERTAPENEM SODIUM 1 GM in NORMAL SALINE 50 ML IV SCH (14:42)
--- NOTE | 2018-04-07 15:33 | Operative Report ---
Nonrecallable Operative Report DATE OF SURGERY: 04/07/18 PREOPERATIVE DIAGNOSIS: Dysfunctional gastrostomy POSTOPERATIVE DIAGNOSIS: Dysfunctional gastrostomy OPERATION: Removal and replacement of gastrostomy, percutaneous SURGEON: PEÑA WATKINS ANESTHESIA: Other - None TISSUE REMOVED OR ALTERED: None COMPLICATIONS: None ESTIMATED BLOOD LOSS: None PROCEDURE: Procedure in detail: After consent was obtained from the patient and his , he was laid in the semi-upright position. The previous gastrostomy was removed. The gastrostomy appeared to be 24 [place] in diameter. The new 24 [place] gastrostomy was inserted easily into the tract. The balloon was inflated, and the bumper was situated at 3 cm at the skin. Gastric contents did flow out of the tube, unprovoked. Water was then flushed into the tube very easily. A drain sponge was placed, and the procedure was concluded. Condition: Stable.
--- NOTE | 2018-04-07 15:43 | PDOC CONSULTATION ---
Consultation Consult Date: 04/07/18 Consult reason:: Dysfunctional gastrostomy History of Present Illness Admission Date/PCP: 03/28/18 20:35 SOL RODRIGUEZ MD Patient complains of: Dysfunctional gastrostomy History of Present Illness: DALY PORTILLO SR is a 72 year old male seen in consultation at the request of the hospitalist. The patient has had a CVA in the past, and is a phasic. He relies on his gastrostomy for feeding and medications. The history is relayed by the . The patient's gastrostomy began clogging several weeks ago. This has progressed such that the gastrostomy needs unclogging every day. Today the gastrostomy has clogged and will not flush, regardless of the amount of external manipulation. The is requesting removal of his current gastrostomy with replacement of a new tube. Other medical history is obtained from the and the medical record. Past Medical History Cardiac Medical History: Reports: Congestive Heart Failure, Myocardial Infarction, Hypertension Pulmonary Medical History: Reports: Chronic Obstructive Pulmonary Disease (COPD), Pneumonia EENT Medical History: Reports: None Neurological Medical History: Reports: Ischemic CVA Denies: Seizures Endocrine Medical History: Reports: Diabetes Mellitus Type 2 Denies: Diabetes Mellitus Type 1, Hyperthyroidism Renal/ Medical History: Reports: Chronic Kidney Disease Denies: Nephrolithiasis Malignancy Medical History: Reports: None GI Medical History: Reports: Gastroesophageal Reflux Disease Denies: Cirrhosis, Hepatitis Musculoskeltal Medical History: Denies: Arthritis, Gout Skin Medical History: Denies: Eczema, Psoriasis Psychiatric Medical History: Reports: Depression, Schizoaffective Disorder Denies: Alcohol Dependency, Substance Abuse, Tobacco Dependency Traumatic Medical History: Reports: None Hematology: Denies: Anemia, Bleeding Tendencies Infectious Medical History: Reports: None Past Surgical History Past Surgical History: Reports: Other - PEG tube placement, ? previous TURP Social History Lives with: Detention Smoking Status: Unknown if Ever Smoked Frequency of Alcohol Use: None Hx Recreational Drug Use: No Drugs: None Hx Prescription Drug Abuse: No - Advance Directive Resuscitation Status: Full Code Family History Family History: CAD, COPD, Hypertension Parental Family History Reviewed: Yes Children Family History Reviewed: Yes Sibling(s) Family History Reviewed.: Yes Medication/Allergy Home Medications: Acetaminophen [Tylenol] 650 mg PEG Q6HP PRN 03/28/18 Albuterol Sulfate [Ventolin 0.083% Neb 2.5 mg/3 mL Ampul] 1 vial NEB RTQ3HP PRN 03/28/18 Atorvastatin Calcium [Lipitor 40 mg Tablet] 40 mg PEG QHS 03/28/18 Bisacodyl [Dulcolax 10 mg Supp.rect] 10 mg CA DAILY 03/28/18 Dexlansoprazole [Dexilant 30 mg Capsule] 30 mg PEG DAILY 03/28/18 Escitalopram Oxalate [Lexapro 10 mg Tablet] 10 mg PEG DAILY 03/28/18 Hyoscyamine Sulfate 0.125 mg SL Q4HP PRN 03/28/18 Ipratropium/Albuterol Sulfate [Duoneb 3 ml Ampul] 3 ml NEB RTQ6 03/28/18 Metoclopramide HCl [Reglan] 5 mg PEG Q8 03/28/18 Metoprolol Tartrate [Lopressor 25 mg Tablet] 12.5 mg PEG Q12 03/28/18 Polyethylene Glycol 3350 [Miralax Powder 17 gm/Packet] 1 packet PEG DAILY 03/28/18 Rivaroxaban [Xarelto 15 mg Tablet] 15 mg PEG DAILY 03/28/18 Simethicone [Mylicon 80 mg Chewable Tablet] 80 mg PEG Q6HP PRN 03/28/18 Tiotropium Nimitz [Spiriva Handihaler 5 Cap/Kit (18 Mcg/Cap)] 1 cap IH DAILY 03/28/18 Ertapenem Sodium [Invanz Inj 1 gm Vial] 1 gm IV DAILY@1500 7 Days #7 vial 04/04/18 Ertapenem Sodium [Ertapenem] 1 gm IJ DAILY 7 Days #7 vial 04/07/18 Allergies/Adverse Reactions: levofloxacin Adverse Reaction (Verified 12/13/17 08:41) Hives Review of Systems Constitutional: ABSENT: chills, fatigue Nose, Mouth, and Throat: ABSENT: sore throat Cardiovascular: ABSENT: chest pain Respiratory: ABSENT: cough Gastrointestinal: PRESENT: abdominal pain - Improved, bloating, other - Dysfunctional gastrostomy Genitourinary: PRESENT: other - Indwelling catheter Integumentary: ABSENT: pruritus, rash Neurological: PRESENT: paresthesias, weakness - Residual from CVA, other - Bedridden Psychiatric: ABSENT: anxiety, depression Endocrine: ABSENT: cold intolerance, heat intolerance Hematologic/Lymphatic: ABSENT: easy bleeding, easy bruising Physical Exam Vital Signs: Temp Pulse Resp BP Pulse Ox 98.1 F 78 17 123/81 98 04/07/18 12:00 04/07/18 12:00 04/07/18 12:00 04/07/18 12:00 04/07/18 12:00 Intake & Output 04/06/18 04/07/18 04/08/18 06:59 06:59 06:59 Intake Total 110 2025 Output Total 300 Balance 110 1725 Weight 62.9 kg 64.7 kg General appearance: PRESENT: no acute distress Head exam: PRESENT: atraumatic Eye exam: ABSENT: scleral icterus Mouth exam: PRESENT: neck supple Teeth exam: PRESENT: poor dentation Neck exam: ABSENT: meningismus, tenderness, thyromegaly, tracheal deviation Respiratory exam: PRESENT: unlabored. ABSENT: chest wall tenderness, tachypnea, wheezes Pulses: PRESENT: normal radial pulses Vascular exam: PRESENT: normal capillary refill GI/Abdominal exam: PRESENT: distended, soft, other - Gastrostomy clogged, appears to be 24 [place]. ABSENT: tenderness Rectal exam: PRESENT: deferred Extremities exam: ABSENT: clubbing Neurological exam: PRESENT: awake, aphasic, other - Nods appropriately to yes and no questions Psychiatric exam: ABSENT: agitated, anxious Focused psych exam: ABSENT: restlessness Skin exam: ABSENT: cyanosis, erythema, jaundice Results Laboratory Results: 04/03/18 07:00 04/03/18 07:00 04/02/18 07:40 Blood Blood Culture - Final NO GROWTH IN 5 DAYS 04/02/18 06:34 Blood Blood Culture - Final NO GROWTH IN 5 DAYS 03/28/18 03/28/18 17:10 17:10 Creatine Kinase 107 CK-MB (CK-2) 1.01 Troponin I 0.013 Impressions: Chest X-Ray 03/28/18 16:21 IMPRESSION: COPD. NO ACUTE RADIOGRAPHIC FINDING IN THE CHEST. Guidance Fluoroscopy 04/04/18 00:00 IMPRESSION: Please see combined report for performance of procedure and radiologic supervision and interpretation. Interventional Vascular Procedure 04/04/18 00:00 IMPRESSION: Please see combined report for performance of procedure and radiologic supervision and interpretation. PICC Line Insertion 04/04/18 00:00 IMPRESSION: SUCCESSFUL PLACEMENT OF A 5 FR DUAL LUMEN 35 CM PICC IN THE RIGHT BASILIC VEIN. Abdomen X-Ray 04/05/18 00:00 IMPRESSION: DIFFUSE GAS THROUGHOUT THE BOWEL, SIMILAR TO THE PRIOR STUDY. Assessment & Plan - Diagnosis (1) Gastrostomy tube dysfunction Is this a current diagnosis for this admission?: Yes - Plan Summary Plan Summary: 72-year-old male with a dysfunctional gastrostomy. The reports that the tube was placed approximately 8 months ago. I have recommended exchange of the tube at bedside. The patient and his have agreed to this. Risks/benefits discussed, informed consent obtained, and all questions answered.
--- NOTE | 2018-04-07 17:33 | PDOC PROGRESS REPORT ---
Subjective Subjective:: Patient resting in bed. He is awake alert. His abdominal distention subsided. Patient continued to be discharged because his home PEG tube feeding and IV infusion has not been set up. Reason For Visit: HYPOTENSION, DEHYDRATION, TACHCARDIA, ARF, ILLEUS Physical Exam Vital Signs: Temp Pulse Resp BP Pulse Ox 98.7 F 70 16 148/83 H 97 04/07/18 16:58 04/07/18 16:58 04/07/18 16:58 04/07/18 16:58 04/07/18 16:58 Intake & Output 04/06/18 04/07/18 04/08/18 06:59 06:59 06:59 Intake Total 110 2025 Output Total 300 Balance 110 1725 Weight 62.9 kg 64.7 kg General appearance: PRESENT: no acute distress Head exam: PRESENT: atraumatic Eye exam: PRESENT: conjunctiva pink Mouth exam: PRESENT: moist Neck exam: ABSENT: carotid bruit, JVD, lymphadenopathy, thyromegaly Respiratory exam: PRESENT: clear to auscultation eric. ABSENT: rales, rhonchi, wheezes Cardiovascular exam: PRESENT: RRR. ABSENT: diastolic murmur, rubs, systolic murmur GI/Abdominal exam: PRESENT: normal bowel sounds, soft. ABSENT: distended, guarding, mass, organolmegaly, rebound, tenderness Neurological exam: PRESENT: alert, awake Results Laboratory Results: 04/03/18 07:00 04/03/18 07:00 04/02/18 07:40 Blood Blood Culture - Final NO GROWTH IN 5 DAYS 04/02/18 06:34 Blood Blood Culture - Final NO GROWTH IN 5 DAYS 03/28/18 03/28/18 17:10 17:10 Creatine Kinase 107 CK-MB (CK-2) 1.01 Troponin I 0.013 Impressions: Chest X-Ray 03/28/18 16:21 IMPRESSION: COPD. NO ACUTE RADIOGRAPHIC FINDING IN THE CHEST. Guidance Fluoroscopy 04/04/18 00:00 IMPRESSION: Please see combined report for performance of procedure and radiologic supervision and interpretation. Interventional Vascular Procedure 04/04/18 00:00 IMPRESSION: Please see combined report for performance of procedure and radiologic supervision and interpretation. PICC Line Insertion 04/04/18 00:00 IMPRESSION: SUCCESSFUL PLACEMENT OF A 5 FR DUAL LUMEN 35 CM PICC IN THE RIGHT BASILIC VEIN. Abdomen X-Ray 04/05/18 00:00 IMPRESSION: DIFFUSE GAS THROUGHOUT THE BOWEL, SIMILAR TO THE PRIOR STUDY. Assessment & Plan - Diagnosis (1) Abdominal distension (gaseous) Is this a current diagnosis for this admission?: Yes Plan: Resolved (2) Sepsis Is this a current diagnosis for this admission?: Yes Plan: Continue current antibiotics (3) Bacteremia due to Escherichia coli Is this a current diagnosis for this admission?: Yes Plan: Continue current antibiotic (4) Hypernatremia Is this a current diagnosis for this admission?: Yes Plan: Improving (5) Ileus, unspecified Is this a current diagnosis for this admission?: Yes Plan: Improved (6) Acute renal insufficiency Is this a current diagnosis for this admission?: Yes Plan: Improving (7) Complicated urinary tract infection Is this a current diagnosis for this admission?: Yes Plan: Patient has history of recurrent UTI. Chronic suprapubic Pickard catheter placement. We will continue current antibiotics
[2018-04-07] MEDS: RIVAROXABAN 15 MG TABLET PEG SCH (18:34)
[2018-04-07] MEDS: ATORVASTATIN CALCIUM 40 MG TABLET PEG SCH (21:22)
[2018-04-08] MEDS: LEVALBUTEROL HCL NEB 1.25 MG/3 ML AMPUL NEB SCH ×2 (00:17→08:55)
[2018-04-08] MEDS: IPRATROPIUM BROMIDE 0.02% NEB 0.5 MG/2.5 ML AMPUL NEB SCH ×2 (00:17→08:55)
[2018-04-08] MEDS: METOCLOPRAMIDE HCL ORAL SOLN 10 MG/10 ML UDCUP PEG SCH (05:55)
[2018-04-08 08:23] VITALS: BP 136/84
[2018-04-08] MEDS: BUDESONIDE NEB 0.5 MG/2 ML AMPUL NEB SCH (08:55)
[2018-04-08] MEDS: METOPROLOL TARTRATE 25 MG TABLET PEG SCH (09:06)
[2018-04-08] MEDS: ESCITALOPRAM OXALATE 10 MG TABLET PEG SCH (09:07)
[2018-04-08] MEDS: FINASTERIDE 5 MG TABLET PO SCH (09:07)
[2018-04-08] MEDS: FAMOTIDINE INJ/PF 20 MG/2 ML SDV IV SCH (09:07)
--- NOTE | 2018-04-08 09:59 | Progress Note ---
Provider Note Provider Note: This is brief addendum to discharge summary I myself dictated yesterday for Mr. Jenkins, the discharge was on hold because his home infusion therapy was not arranged. Now all his infusion therapy are all set so he is good to go home.
== END 2018-04-08 10:00 | disposition home health service (06) | DRG 872 ==
LOC: ER 16:10 → EH 20:35 → 4S 23:33
PROVIDERS: ADMIT Emergency Medicine; ATTEND Emergency Medicine
PROC: 0D20XUZ Change Feeding Device in Upper Intestinal Tract, External Approach (ICD-10-PCS; principal; 2018-04-07)
DX: A41.9 Sepsis, unspecified organism (principal); N17.9 Acute kidney failure, unspecified; E87.0 Hyperosmolality and hypernatremia; K56.7 Ileus, unspecified; T83.510A Infection and inflammatory reaction due to cystostomy catheter, initial encounter; N39.0 Urinary tract infection, site not specified; K94.23 Gastrostomy malfunction; I50.9 Heart failure, unspecified; L89.302 Pressure ulcer of unspecified buttock, stage 2; I11.0 Hypertensive heart disease with heart failure; J44.9 Chronic obstructive pulmonary disease, unspecified; R13.10 Dysphagia, unspecified; E11.8 Type 2 diabetes mellitus with unspecified complications; K21.9 Gastro-esophageal reflux disease without esophagitis; E87.6 Hypokalemia; B96.20 Unspecified Escherichia coli [E. coli] as the cause of diseases classified elsewhere; R14.0 Abdominal distension (gaseous); K59.00 Constipation, unspecified; E86.0 Dehydration; F25.1 Schizoaffective disorder, depressive type; I25.2 Old myocardial infarction; Z79.01 Long term (current) use of anticoagulants; Z79.51 Long term (current) use of inhaled steroids; Z79.899 Other long term (current) drug therapy; I69.991 Dysphagia following unspecified cerebrovascular disease; I69.920 Aphasia following unspecified cerebrovascular disease; I69.998 Other sequelae following unspecified cerebrovascular disease; Z74.01 Bed confinement status
CPT/HCPCS: 36415; 36569; 71045; 74019; 76937; 77001; 80048; 80053; 81001; 82140; 82150; 82550; 82553; 82962; 83605; 83690; 83735; 84100; 84439; 84443; 84481; 84484; 85025; 85027; 87040; 87077; 87086; 87088; 87186; 93005; 93010; 94640; 96361; 96365; 99291; J0692; J0696; J1335; J1642; J3490; J7030; S0028

== ENCOUNTER 2018-04-09 15:16 | Emergency (ER) | payer MEDICARE, MEDICAID ==
--- NOTE | 2018-04-09 15:51 | ER Document Report ---
ED Respiratory Problem - General Mode of Arrival: Ambulatory Information source: Patient TRAVEL OUTSIDE OF THE [place] IN LAST 30 DAYS: No <KOSTA MALDONADO - Last Filed: 04/09/18 23:31> <DORIS SCHWAB - Last Filed: 04/09/18 23:35> - General Chief Complaint: Respiratory Distress Stated Complaint: DIFFICULTY BREATHING Time Seen by Provider: 04/09/18 15:38 Notes: 72-year-old male who presents to the emergency department today for concerns of abdominal swelling. Patient was admitted to this facility on 03/28 and discharged yesterday. Sister states the patient had a "watery" bowel movement this morning. Sister states the patient has had a cough with associated shortness of breath. Sister states he has a history of aspiration and COPD. The patient resides at [facility] and was taken out of the correction today to bring home to family but they were unable to send his nebulizer at home with him until they got authorization from their physician so he does not have one at home. Patient also was unable to bring any of his prescription medications home so he has not taken any of this medication today. Patient is on ertapenem for a UTI. (KOSTA MALDONADO) - Related Data Allergies/Adverse Reactions: levofloxacin Adverse Reaction (Verified 12/13/17 08:41) Hives Past Medical History - General Information source: Patient - Social History Smoking Status: Former Smoker Frequency of alcohol use: None Lives with: Family Family History: Reviewed & Not Pertinent, CAD, COPD, Hypertension Patient has suicidal ideation: - unable to assess Patient has homicidal ideation: - unable to assess - Past Medical History Cardiac Medical History: Reports: Hx Congestive Heart Failure, Hx Heart Attack, Hx Hypertension Pulmonary Medical History: Reports: Hx COPD, Hx Pneumonia Neurological Medical History: Reports: Hx Cerebrovascular Accident Endocrine Medical History: Reports: Hx Diabetes Mellitus Type 2 GI Medical History: Reports: Hx Gastroesophageal Reflux Disease Psychiatric Medical History: Reports: Hx Depression, Hx Schizoaffective Disorder, Hx Schizophrenia Past Surgical History: Reports: Hx Genitourinary Surgery, Other - PEG tube placement, ? previous TURP - Immunizations Hx Pneumococcal Vaccination: 04/27/16 <KOSTA MALDONADO - Last Filed: 04/09/18 23:31> Review of Systems - Review of Systems Constitutional: No symptoms reported EENT: No symptoms reported Cardiovascular: No symptoms reported Respiratory: See HPI, Cough, Short of breath Gastrointestinal: See HPI, Abdomen distended. denies: Constipation Genitourinary: No symptoms reported Male Genitourinary: No symptoms reported Musculoskeletal: No symptoms reported Skin: No symptoms reported Hematologic/Lymphatic: No symptoms reported Neurological/Psychological: No symptoms reported -: Yes All other systems reviewed and negative <KOSTA MALDONADO - Last Filed: 04/09/18 23:31> - Review of Systems Notes: given by sister at bedside (KOSTA MALDONADO) Physical Exam <KOSTA MALDONADO - Last Filed: 04/09/18 23:31> - Vital signs Vitals: Temp Pulse Resp BP Pulse Ox 97.7 F 108 H 24 H 136/71 H 100 04/09/18 15:32 04/09/18 15:32 04/09/18 15:32 04/09/18 15:32 04/09/18 15:32 - Notes Notes: PHYSICAL EXAM GENERAL: Awake, interaction at baseline. No acute distress. HEAD: Normocephalic, atraumatic. EYES: Pupils equal, round, and reactive to light. Extraocular movements intact. ENT: Oral mucosa moist, tongue midline. NECK: Full range of motion. Supple. Trachea midline. LUNGS: Crackles in the left lower lobe, expiratory wheezing. Accessory muscles used with respiration. Saturating at 100% on room air with good wave form, not hypoxic per my interpretation. HEART: Tachycardic with sitting, regular rhythm. Faint heart sounds. No murmurs, gallops, or rubs. ABDOMEN: Feeding tube in place. Semi-firm, shifting abdominal tenderness, cons istent tenderness in right upper quadrant. Distended. Tympanic to percussion. No fluid wave. Bowel sounds present in all 4 quadrants. No guarding, rigidity, or rebound. EXTREMITIES: No edema, radial and dorsalis pedis pulses 2/4 bilaterally. No cyanosis. NEUROLOGICAL: Neuro at baseline secondary to prior CVAs per sister at bedside PSYCH: Unable to assess SKIN: Warm, dry, normal turgor. No rashes or lesions noted. (KOSTA MALDONADO) Course - Laboratory Result Diagrams: 04/09/18 15:45 04/09/18 15:45 <KOSTA MALDONADO - Last Filed: 04/09/18 23:31> - Laboratory Result Diagrams: 04/09/18 15:45 04/09/18 15:45 <DORIS SCHWAB - Last Filed: 04/09/18 23:35> - Re-evaluation Re-evalutation: 04/09/18 19:56 CBC shows chronic anemia with hemoglobin 11.3, CMP grossly unremarkable, cardiac enzymes negative, urinalysis shows trace ketones, large blood and moderate leukocyte esterase, patient is already undergoing treatment for a urinary tract infection through a PICC line. CT scan of the abdomen and pelvis was repeated given his abdominal distention and it showed redemonstration of percutaneous gastrostomy tube and multiple loops of air-filled bowel similar to that seen on radiographs performed on 04/05/2018 no pneumoperitoneum no focal collection of fluid or abscess. Chest x-ray shows no acute process, PICC line in good position. Patient is having difficulty with his medications. I am currently working with case management Ulisses Sundar to determine whether or not we can get his medications that he needs in order to be discharged home. 04/09/18 20:35 At present there is no indication for admission, correction will return to the medications to the sister other than the nebulizer which wants to the correction given inhaler, spacer and mask with education. Sister will go and parts picker the medications from the correction now. Patient will not be discharged until we have the medications. (DORIS SCHWAB) - Vital Signs Vital signs: Temp Pulse Resp BP Pulse Ox 97.7 F 108 H 20 146/127 H 97 04/09/18 15:32 04/09/18 15:32 04/09/18 22:36 04/09/18 22:36 04/09/18 22:36 - Laboratory Laboratory results interpreted by me: 04/09/18 04/09/18 04/09/18 15:45 15:45 15:57 RBC 4.15 L Hgb 11.3 L Hct 35.4 L MCHC 31.9 L RDW 16.1 H Eosinophils % 9.2 H Creatine Kinase 31 L Albumin 3.1 L Urine Protein 30 H Urine Ketones TRACE H Urine Blood LARGE H Ur Leukocyte Esterase MODERATE H Urine Ascorbic Acid 40 H - EKG Interpretation by Me Additional EKG results interpreted by me: 04/09/18 20:36 EKG shows sinus tachycardia at a rate of 107, left axis deviation, normal intervals, poor R wave progression, no ST segment elevations or depressions per my interpretation. (DORIS SCHWAB) Discharge <KOSTA MALDONADO - Last Filed: 04/09/18 23:31> <DORIS SCHWAB - Last Filed: 04/09/18 23:35> - Discharge Clinical Impression: Complicated urinary tract infection, Expressive aphasia, Shepherd's syndrome, Abdominal distension (gaseous), COPD exacerbation Condition: Stable Disposition: HOME, SELF-CARE Referrals: SOL RODRIGUEZ MD [Primary Care Provider] - Follow up as needed Scribe Attestation: 04/09/18 23:35 I personally performed the services described in the documentation, reviewed and edited the documentation which was dictated to the scribe in my presence, and it accurately records my words and actions. (DORIS SCHWAB) Scribe Documentation - Scribe Written by Scribe:: Corinne Amato, 04/09/2018 1711 acting as scribe for :: Kvng <KOSTA MALDONADO - Last Filed: 04/09/18 23:31>
--- NOTE | 2018-04-09 15:56 | RADIOLOGY REPORT (SQ) ---
EXAM DESCRIPTION: CHEST SINGLE VIEW COMPLETED DATE/TIME: 04/09/2018 3:39 pm REASON FOR STUDY: BED 17 DB COMPARISON: 03/28/2018. EXAM PARAMETERS: NUMBER OF VIEWS: One view. TECHNIQUE: Single frontal radiographic view of the chest acquired. RADIATION DOSE: NA LIMITATIONS: None. FINDINGS: LUNGS AND PLEURA: No acute infiltrates or effusions. MEDIASTINUM AND HILAR STRUCTURES: No masses. Contour normal. HEART AND VASCULAR STRUCTURES: The heart and pulmonary vasculature are normal. BONES: No acute findings. HARDWARE: None in the chest. OTHER: Right central venous PICC line overlying SVC. Chest leads in place. IMPRESSION: Right trans venous PICC line overlying SVC. No acute disease. TECHNICAL DOCUMENTATION: JOB ID: [id number] [id number] 2010 [employer]- All Rights Reserved Reading location - IP/workstation name: [email or web address]
[2018-04-09 16:02] LABS: ABSOLUTE EOSINOPHILS # (AUTO) 0.6 10^3/uL (0.0-0.6); ABSOLUTE LYMPHOCYTES (AUTO) 2.3 10^3/uL (0.5-4.7); ABSOLUTE MONOCYTES (AUTO) 0.6 10^3/uL (0.1-1.4); BASOPHILS % (AUTO) 0.5 % (0-2); EOSINOPHILS % (AUTO) 9.2 % (0-6); HEMATOCRIT 35.4 % (37.9-51.0); HEMOGLOBIN 11.3 g/dL (13.5-17.0); LYMPHOCYTES % (AUTO) 35.9 % (13-45); MEAN CORPUSCULAR HEMOGLOBIN 27.2 pg (27.0-33.4); MEAN CORPUSCULAR HGB CONC 31.9 g/dL (32.0-36.0); MEAN CORPUSCULAR VOLUME 85 fl (80-97); MONOCYTES % (AUTO) 8.5 % (3-13); PLATELET COUNT 279 10^3/uL (150-450); RED BLOOD COUNT 4.15 10^6/uL (4.35-5.55); RED CELL DISTRIBUTION WIDTH 16.1 % (11.5-14.0); SEGMENTED NEUTROPHILS % (AUTO) 45.9 % (42-78); TOTAL CELLS COUNTED % (AUTO) 100 %; WHITE BLOOD COUNT 6.5 10^3/uL (4.0-10.5)
[2018-04-09 16:12] LABS: APPEARANCE,URINE CLOUDY; BILIRUBIN,URINE NEGATIVE (NEGATIVE); CALCIUM OXALATE CRYSTALS,URINE FEW /HPF; COLOR,URINE YELLOW; GLUCOSE, URINE NEGATIVE (NEGATIVE); KETONES,URINE TRACE mg/dL (NEGATIVE); LEUKOCYTE ESTERASE,URINE MODERATE (NEGATIVE); NITRITE,URINE NEGATIVE (NEGATIVE); PROTEIN,URINE 30 mg/dL (NEGATIVE); URINE SPECIFIC GRAVITY 1.014; UROBILINOGEN,URINE NEGATIVE mg/dL (<2.0)
[2018-04-09 16:15] LABS: ALANINE AMINOTRANSFERASE 45 U/L (21-72); ALBUMIN 3.1 g/dL (3.5-5.0); ALKALINE PHOSPHATASE 72 U/L (38-126); ANION GAP 6 (5-19); ASPARTATE AMINO TRANSFERASE 34 U/L (17-59); BILIRUBIN,DIRECT 0.2 mg/dL (0.0-0.4); BILIRUBIN,TOTAL 0.5 mg/dL (0.2-1.3); BLOOD UREA NITROGEN 13 mg/dL (7-20); CALCIUM 9.7 mg/dL (8.4-10.2); CARBON DIOXIDE 29 mmol/L (22-30); CHLORIDE 105 mmol/L (98-107); CREATINE KINASE 31 U/L (55-170); GLUCOSE 90 mg/dL (75-110); POTASSIUM 3.9 mmol/L (3.6-5.0); SODIUM 140.1 mmol/L (137-145); TOTAL PROTEIN 6.7 g/dL (6.3-8.2)
[2018-04-09 16:28] LABS: TROPONIN I < 0.012 ng/mL
--- NOTE | 2018-04-09 17:46 | EKG REPORT ---
SEVERITY:- ABNORMAL ECG - SINUS TACHYCARDIA LEFT ANTERIOR FASCICULAR BLOCK LOW VOLTAGE IN FRONTAL LEADS ANTEROLATERAL INFARCT, OLD : Confirmed by: Frantz Dove 09-Apr-2018 17:45:55
--- NOTE | 2018-04-09 18:54 | RADIOLOGY REPORT (SQ) ---
EXAM DESCRIPTION: CT ABD/PELVIS WITH IV ORAL COMPLETED DATE/TIME: 04/09/2018 6:35 pm REASON FOR STUDY: abd distention and pain, has feeding tube COMPARISON: Abdominal radiographs 04/05/[address] 08/31/2017 TECHNIQUE: CT scan of the abdomen and pelvis performed using helical scanning technique with dynamic intravenous contrast injection. No oral contrast. Images reviewed with lung, soft tissue, and bone windows. Reconstructed coronal and sagittal MPR images reviewed. Delayed images for evaluation of the urinary system also acquired. All images stored on PACS. All CT scanners at this facility use dose modulation, iterative reconstruction, and/or weight based d osing when appropriate to reduce radiation dose to as low as reasonably achievable (ALARA). [facility]: Dose Right [facility]: CareDose [facility]: Dose Right [facility]: Teradose 4D [facility]: DreamHeart CONTRAST TYPE AND DOSE: contrast/concentration: Isovue 350.00 mg/ml; Total Contrast Delivered: 70.0 ml; Total Saline Delivered: 62.0 ml RENAL FUNCTION: BUN 14; creatinine 0.98 RADIATION DOSE: CT Rad equipment meets quality standard of care and radiation dose reduction techniq ues were employed. CTDIvol: 6.6 - 9.1 mGy. DLP: 787 mGy-cm.. LIMITATIONS: None. FINDINGS: LOWER CHEST: Right lung base scarring. No pleural effusion. LIVER: Normal size. No masses. No dilated ducts. SPLEEN: Normal size. No focal lesions. PANCREAS: No masses. No significant calcifications. No adjacent inflammation or peripancreatic fluid collections. Pancreatic duct not dilated. GALLBLADDER: No identified stones by CT criteria. No inflammatory changes to suggest cholecystitis. ADRENAL GLANDS: Stable nodular appearance of the left adrenal gland. RIGHT KIDNEY AND URETER: No solid masses. No significant calcifications. No hydronephrosis or hyd roureter. LEFT KIDNEY AND URETER: No solid masses. No significant calcifications. No hydronephrosis or hydr oureter. AORTA AND VESSELS: No aneurysm. No dissection. Renal arteries, SMA, celiac without stenosis. RETROPERITONEUM: No retroperitoneal adenopathy, hemorrhage or masses. BOWEL AND PERITONEAL CAVITY: Re- demonstration of a percutaneous gastrostomy tube and multiple loops of air filled bowel, similar to that seen on radiographs performed 04/05/2018. No pneumoperitoneum. No focal fluid collection/abscess. APPENDIX: Not visualized. PELVIS: No mass. No free fluid. The bladder is largely decompressed with a suprapubic catheter. . ABDOMINAL WALL: No masses. No hernias. BONES: No significant or acute findings. OTHER: No other significant finding. IMPRESSION: Re- demonstration of multiple gas-filled loops of large and small bowel, similar to that seen on comparison radiographs. No evidence of high-grade obstruction. Percutaneous gastrostomy tu be and suprapubic urinary catheter without evidence of complication. TECHNICAL DOCUMENTATION: JOB ID: [id number] Quality ID # [id number]: Final reports with documentation of one or more dose reduction techniques (e.g., Au tomated exposure control, adjustment of the mA and/or kV according to patient size, use of iterative reconstruction technique) 2010 [employer] an [employer]- All Rights Reserved Reading location - IP/workstation name: [email or web address]
[2018-04-09] MEDS ORDERED: ALBUTEROL SULFATE HFA (90 MCG/PUFF) 8 GM MDI (1 MDI/ER DISP) IH ONE (20:27)
[2018-04-09] MEDS ORDERED: ACETAMINOPHEN 325 MG TABLET PEG ONE (21:04)
[2018-04-09] MEDS ORDERED: IPRATROPIUM/ALBUTEROL 0.5-2.5 MG/3 ML AMPUL NEB ONE (21:48)
[2018-04-09] MEDS ORDERED: METOPROLOL TARTRATE 50 MG TABLET PO ONE (21:49)
[2018-04-09] MEDS ORDERED: METOCLOPRAMIDE HCL 10 MG TABLET PO ONE (21:49)
[2018-04-09 23:38] VITALS: BP 142/98
== END 2018-04-09 23:43 | disposition home or self-care (01) ==
LOC: ER 15:16
DX: J44.1 Chronic obstructive pulmonary disease with (acute) exacerbation (principal); N39.0 Urinary tract infection, site not specified; D64.9 Anemia, unspecified; Z66 Do not resuscitate; I11.0 Hypertensive heart disease with heart failure; I50.9 Heart failure, unspecified; E11.9 Type 2 diabetes mellitus without complications; F25.9 Schizoaffective disorder, unspecified; R19.00 Intra-abdominal and pelvic swelling, mass and lump, unspecified site; K21.9 Gastro-esophageal reflux disease without esophagitis; Z87.891 Personal history of nicotine dependence; I69.320 Aphasia following cerebral infarction; I25.2 Old myocardial infarction; Z88.1 Allergy status to other antibiotic agents; Z93.1 Gastrostomy status
CPT/HCPCS: 93005; 94640; 99285; 36415; 87086; 82553; 82550; 85025; 80053; 81001; 84484; 71045; 74177; 93010; A9270 ×4; J3490; J7620

== ENCOUNTER 2018-05-15 10:01 | Emergency (ER) | payer MEDICARE, MEDICAID ==
[2018-05-15 10:34] LABS: VENOUS BLOOD BASE EXCESS 0.4 mmol/L; VENOUS BLOOD HCO3 28.4 mmol/L (20-32); VENOUS BLOOD PCO2 61.3 mmHg (35-63); VENOUS BLOOD PH 7.28 (7.30-7.42)
--- NOTE | 2018-05-15 10:38 | ER Document Report ---
ED General - General Chief Complaint: Respiratory Distress Stated Complaint: DIFFICULTY BREATHING Time Seen by Provider: 05/15/18 10:26 Primary Care Provider: SHERRIE ARMANDO MD [ACTIVE STAFF] - Follow up as needed Mode of Arrival: Medic Information source: Relative Notes: 72-year-old male brought to the emergency department by EMS for difficulty breathing. Patient does have a history of COPD. He is nonverbal secondary to her previous strokes. He will not his head in response to questions. He does have a G-tube and suprapubic cath in place. Patient's sister is at bedside. Patient currently resides with his sister. She states that home health and phy sical therapy have been coming to the house. She states that the patient is not on any home oxygen. He does not have a nebulizer machine. He does have an albuterol inhaler that is run out. She denies any fever but the patient has had rhinorrhea and a dry cough. No history of sick contacts. She states that the patient is following up with his primary care physician on Monday. Patient acknowledges to be feeling better after receiving the nebulizer treatment. He denies any current chest pain, shortness of breath, abdominal pain, nausea. Sister denies any vomiting, diarrhea, constipation. TRAVEL OUTSIDE OF THE [place] IN LAST 30 DAYS: No - HPI Onset: Just prior to arrival Onset/Duration: Sudden Quality of pain: No pain Severity: None Pain Level: Denies Associated symptoms: Nonproductive cough, Rhinnorhea Exacerbated by: Denies Relieved by: Denies Similar symptoms previously: Yes Recently seen / treated by doctor: No - Related Data Allergies/Adverse Reactions: levofloxacin Adverse Reaction (Verified 12/13/17 08:41) Hives Past Medical History - General Information source: Relative - Social History Smoking Status: Unknown if Ever Smoked Family History: Reviewed & Not Pertinent, CAD, COPD, Hypertension - Past Medical History Cardiac Medical History: Reports: Hx Congestive Heart Failure, Hx Heart Attack, Hx Hypertension Pulmonary Medical History: Reports: Hx COPD, Hx Pneumonia Neurological Medical History: Reports: Hx Cerebrovascular Accident. Denies: Hx Seizures Endocrine Medical History: Reports: Hx Diabetes Mellitus Type 2. Denies: Hx Diabetes Mellitus Type 1, Hx Hyperthyroidism Renal/ Medical History: Denies: Hx Peritoneal Dialysis GI Medical History: Reports: Hx Gastroesophageal Reflux Disease. Denies: Hx Cirrhosis, Hx Hepatitis Musculoskeletal Medical History: Denies Hx Arthritis, Denies Hx Gout Skin Medical History: Denies Hx Eczema, Denies Hx Psoriasis Psychiatric Medical History: Reports: Hx Depression, Hx Schizoaffective Disorder, Hx Schizophrenia Infectious Medical History: Denies: Hx Hepatitis Past Surgical History: Reports: Hx Genitourinary Surgery, Other - PEG tube placement, ? previous TURP - Immunizations Hx Pneumococcal Vaccination: 04/27/16 Review of Systems - Review of Systems Constitutional: No symptoms reported EENT: Nose discharge Cardiovascular: No symptoms reported Respiratory: Cough, Wheezing Gastrointestinal: No symptoms reported Genitourinary: No symptoms reported Male Genitourinary: No symptoms reported Musculoskeletal: No symptoms reported Skin: No symptoms reported Hematologic/Lymphatic: No symptoms reported Neurological/Psychological: No symptoms reported -: Yes All other systems reviewed and negative Physical Exam - Vital signs Vitals: Temp Resp BP Pulse Ox 97.7 F 18 121/83 100 05/15/18 10:11 05/15/18 10:11 05/15/18 10:11 05/15/18 10:11 - Notes Notes: PHYSICAL EXAMINATION: GENERAL: Well-appearing, well-nourished and in no acute distress. HEAD: Atraumatic, normocephalic. EYES: Pupils equal round and reactive to light, extraocular movements intact, sclera anicteric, conjunctiva are normal. ENT: Nares patent, oropharynx clear without exudates. Moist mucous membranes. NECK: Normal range of motion, supple without lymphadenopathy LUNGS: Breath sounds clear to auscultation bilaterally and equal. No wheezes rales or rhonchi. HEART: Regular rate and rhythm without murmurs ABDOMEN: Soft, nontender, nondistended abdomen. No guarding, no rebound. G- tube and suprapubic catheter in place. Musculoskeletal: Normal range of motion, no pitting or edema. No cyanosis. NEUROLOGICAL: Unable to speak or walk secondary to previous stroke. Denies vision changes, numbness, tingling. PSYCH: Normal mood, normal affect. SKIN: Warm, Dry, normal turgor, no rashes or lesions noted. Course - Re-evaluation Re-evalutation: 05/15/18 10:42 EKG: Ventricular rate 99, ID interval 176, QRS duration 94, QTc 483, normal sinus rhythm. Left anterior fascicular block. No ST segment elevation. 05/15/18 13:17 Vital signs stable. Patient is satting at 100% on room air. On reevaluation, patient is resting in the bed comfortably. No respiratory distress. Patient's lungs are clear to auscultation bilaterally. He nods when asked if he is feeling much better. Chest x-ray shows emphysematous changes. No infiltrate seen. Labs obtained. Patient's white blood cell count is normal. Urine shows signs of infection. I discussed admission versus discharge home with the patient's sister. Patient's sister prefers to be discharged. I will prescribe an antibiotic for UTI. Patient has a follow-up appointment in a week with his primary care physician. I instructed the sister to give the antibiotic as directed and to return to the emergency department immediately if the patient starts having fever or complains again of difficulty breathing. Patient sister is agreeable with plan of care. 05/15/18 13:17 05/15/18 17:49 - Vital Signs Vital signs: Temp Pulse Resp BP Pulse Ox 97.7 F 18 125/83 98 05/15/18 10:11 05/15/18 15:03 05/15/18 15:03 05/15/18 15:03 - Laboratory Result Diagrams: 05/15/18 10:23 05/15/18 12:30 Laboratory results interpreted by me: 05/15/18 05/15/18 05/15/18 10:23 10:23 10:56 Hgb 12.7 L RDW 16.9 H Seg Neuts % (Manual) 31 L Lymphocytes % (Manual) 56 H VBG pH 7.28 L Glucose Urine Protein 30 H Urine Blood SMALL H Ur Leukocyte Esterase LARGE H Urine Ascorbic Acid 40 H 05/15/18 12:30 Hgb RDW Seg Neuts % (Manual) Lymphocytes % (Manual) VBG pH Glucose 112 H Urine Protein Urine Blood Ur Leukocyte Esterase Urine Ascorbic Acid Discharge - Discharge Clinical Impression: COPD exacerbation, UTI (urinary tract infection) Condition: Good Disposition: HOME, SELF-CARE Instructions: Cephalexin ([facility]), Urinary Tract Infection ([facility]) Prescriptions: RX: Cephalexin Monohydrate [Keflex 500 mg Capsule] 500 mg PO Q6H 7 Days #28 capsule Referrals: SHERRIE ARMANDO MD [ACTIVE STAFF] - Follow up as needed
[2018-05-15 10:41] LABS: HEMATOCRIT 39.3 % (37.9-51.0); HEMOGLOBIN 12.7 g/dL (13.5-17.0); MEAN CORPUSCULAR HEMOGLOBIN 27.7 pg (27.0-33.4); MEAN CORPUSCULAR HGB CONC 32.4 g/dL (32.0-36.0); MEAN CORPUSCULAR VOLUME 86 fl (80-97); PLATELET COUNT 222 10^3/uL (150-450); RED BLOOD COUNT 4.58 10^6/uL (4.35-5.55); RED CELL DISTRIBUTION WIDTH 16.9 % (11.5-14.0)
--- NOTE | 2018-05-15 11:13 | RADIOLOGY REPORT (SQ) ---
EXAM DESCRIPTION: CHEST SINGLE VIEW COMPLETED DATE/TIME: 05/15/2018 11:00 am REASON FOR STUDY: dyspnea COMPARISON: 04/09/2018 EXAM PARAMETERS: NUMBER OF VIEWS: One view. TECHNIQUE: Single frontal radiographic view of the chest acquired. RADIATION DOSE: NA LIMITATIONS: None. FINDINGS: LUNGS AND PLEURA: Emphysematous change. No focal airspace disease, pleural effusion or pn eumothorax. MEDIASTINUM AND HILAR STRUCTURES: No masses. Contour normal. HEART AND VASCULAR STRUCTURES: Heart normal in size. Normal vasculature. BONES: No acute findings. 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 HARDWARE: None in the chest. OTHER: No other significant finding. IMPRESSION: Emphysematous change without evidence of acute cardiopulmonary process. TECHNICAL DOCUMENTATION: JOB ID: [id number] [employer]- All Rights Reserved Reading location - IP/workstation name: [email or web address]
[2018-05-15 11:26] LABS: ABSOLUTE LYMPHOCYTES# (MANUAL) 3.7 10^3/uL (0.5-4.7); ABSOLUTE MONOCYTES # (MANUAL) 0.2 10^3/uL (0.1-1.4); ABSOLUTE NEUTROPHILS# (MANUAL) 1.9 10^3/uL (1.7-8.2); BASOPHILS % (MANUAL) 0 % (0-2); EOSINOPHILS % (MANUAL) 5 % (0-6); LYMPHOCYTES % (MANUAL) 56 % (13-45); MONOCYTES % (MANUAL) 3 % (3-13); SEGMENTED NEUTROPHILS % (MAN) 31 % (42-78); TOTAL CELLS COUNTED 100
[2018-05-15 11:30] LABS: PLATELET CLUMPS PRESENT; TOXIC GRANULATION SLIGHT; TOXIC VACUOLATION PRESENT
[2018-05-15 11:31] LABS: ANISOCYTOSIS 1+; BURR CELLS SLIGHT; HYPOCHROMASIA SLIGHT; POIKILOCYTOSIS SLIGHT
[2018-05-15 11:35] LABS: A TYPE INFLUENZA AG NEGATIVE (NEGATIVE); B INFLUENZA AG NEGATIVE (NEGATIVE)
[2018-05-15 11:36] LABS: APPEARANCE,URINE CLOUDY; BILIRUBIN,URINE NEGATIVE (NEGATIVE); GLUCOSE, URINE NEGATIVE (NEGATIVE); KETONES,URINE NEGATIVE (NEGATIVE); LEUKOCYTE ESTERASE,URINE LARGE (NEGATIVE); NITRITE,URINE NEGATIVE (NEGATIVE); PROTEIN,URINE 30 mg/dL (NEGATIVE); URINE SPECIFIC GRAVITY 1.015; UROBILINOGEN,URINE NEGATIVE mg/dL (<2.0)
[2018-05-15 11:37] LABS: COLOR,URINE YELLOW
[2018-05-15 13:07] LABS: ALANINE AMINOTRANSFERASE 69 U/L (21-72); ALBUMIN 3.7 g/dL (3.5-5.0); ALKALINE PHOSPHATASE 62 U/L (38-126); ANION GAP 10 (5-19); ASPARTATE AMINO TRANSFERASE 52 U/L (17-59); BILIRUBIN,DIRECT 0.2 mg/dL (0.0-0.4); BILIRUBIN,TOTAL 0.3 mg/dL (0.2-1.3); BLOOD UREA NITROGEN 17 mg/dL (7-20); CALCIUM 10.2 mg/dL (8.4-10.2); CARBON DIOXIDE 30 mmol/L (22-30); CHLORIDE 103 mmol/L (98-107); GLUCOSE 112 mg/dL (75-110); POTASSIUM 4.3 mmol/L (3.6-5.0); SODIUM 142.9 mmol/L (137-145); TOTAL PROTEIN 7.4 g/dL (6.3-8.2)
[2018-05-15 15:48] VITALS: BP 125/83
--- NOTE | 2018-05-15 15:56 | EKG REPORT ---
SEVERITY:- ABNORMAL ECG - SINUS RHYTHM LEFT ANTERIOR FASCICULAR BLOCK PROBABLE ANTEROLATERAL INFARCT, OLD BORDERLINE PROLONGED QT INTERVAL : Confirmed by: Rigo Arredondo MD 15-May-2018 15:55:58
== END 2018-05-15 15:45 | disposition home or self-care (01) ==
LOC: ER 10:01
DX: J44.1 Chronic obstructive pulmonary disease with (acute) exacerbation (principal); N39.0 Urinary tract infection, site not specified; R06.03 Acute respiratory distress; Z86.73 Personal history of transient ischemic attack (TIA), and cerebral infarction without residual deficits; R05 Cough; J34.89 Other specified disorders of nose and nasal sinuses; I50.9 Heart failure, unspecified; I25.2 Old myocardial infarction; I11.0 Hypertensive heart disease with heart failure; E11.9 Type 2 diabetes mellitus without complications
CPT/HCPCS: 36415; 71045; 80053; 81001; 82803; 85025; 87086; 87088; 87186; 87804; 93005; 93010; 99285

== ENCOUNTER 2018-06-18 20:45 | Emergency (ER) | payer MEDICARE, MEDICAID ==
[2018-06-18] MEDS ORDERED: METHYLPREDNISOLONE INJ 125 MG/2 ML SDV IV ONE (21:11)
[2018-06-18] MEDS ORDERED: IPRATROPIUM/ALBUTEROL 0.5-2.5 MG/3 ML AMPUL NEB ONE (21:11)
--- NOTE | 2018-06-18 21:19 | ER Document Report ---
ED Respiratory Problem - General Stated Complaint: DIFFICULTY BREATHING Time Seen by Provider: 06/18/18 21:18 Primary Care Provider: FIDEL HANDY DO [Primary Care Provider] - Follow up as needed Mode of Arrival: Ambulatory Information source: Relative Cannot obtain history due to: Other - Nonverbal from previous stroke Notes: HISTORY OF PRESENT ILLNESS: Patient is a 72-year-old male with a past medical history of several chronic conditions including coronary artery disease, previous stroke, CHF, and COPD who presents with difficulty breathing that started yesterday but worsened again today. Patient is nonverbal from his previous stroke, therefore information is obtained by his who is at bedside. Location: Chest Onset: 1 day ago Alleviation: Nothing Provocation: Coughing Quality: Tightness, congestion Radiation: None Severity: Moderate Timing: Constant History of CAD: Yes Associated symptoms: No fevers or chills, no chest pain, no swelling of the extremities REVIEW OF SYSTEMS: CONSTITUTIONAL : Denies fever or chills, no sweats. Denies recent illness. EENT: Denies eye, ear, throat, or mouth pain or symptoms. Denies nasal or sin us congestion. CARDIOVASCULAR: Denies chest pain. Denies swelling of the legs. RESPIRATORY: Positive for cough and congestion. Positive for mild shortness of breath with wheezing. GASTROINTESTINAL: Denies abdominal pain. Denies nausea, vomiting, or diarrhea. Denies constipation. GENITOURINARY: Denies difficulty urinating, painful urination, burning, frequency, or blood in urine. MUSCULOSKELETAL: Denies neck or back pain or joint pain or swelling. SKIN: Denies rash or skin lesions. HEMATOLOGIC : Denies easy bruising or bleeding. LYMPHATIC: Denies swollen, enlarged glands. NEUROLOGICAL: Denies altered mental status or loss of consciousness. Denies headache. Denies weakness or paralysis or loss of use of either side. Denies problems with gait or speech. Denies sensory or motor loss. PSYCHIATRIC: Denies anxiety or stress or depression. All other systems reviewed and negative. PHYSICAL EXAMINATION: GENERAL: Well-appearing, well-nourished and in no acute distress. HEAD: Atraumatic, normocephalic. No scalp deformity, depression, or crepitance. EYES: Pupils are 3 mm and equal/round/reactive to light, extraocular movements intact, sclera anicteric, conjunctiva are normal. ENT: Nares patent bilaterally, oropharynx. Moist mucous membranes. No tonsil hypertrophy. NECK: Normal range of motion, supple without lymphadenopathy. LUNGS: Breath sounds mildly diminished bilaterally with mild to moderate expiratory wheezes, no distress. No rales or rhonchi. HEART: Regular rate and rhythm without murmurs, rubs, or gallops. 2+ peripheral pulses. Normal capillary refill. ABDOMEN: Soft, nontender, nondistended. Normoactive bowel sounds. No guarding, no rebound. No masses appreciated. BACK: Normal contour, no midline tenderness. Rectal exam deferred. GENITAL/PELVIC: Deferred. EXTREMITIES: Normal range of motion, no pitting or edema. No cyanosis. NEUROLOGICAL: No focal neurological deficits. Moves all extremities spontaneously and on command. PSYCH: Normal mood, normal affect. No suicidal thoughts/ideations. No homocidal thoughts/ideations. No hallucinations. SKIN: Warm, dry, normal turgor, no rashes or lesions noted. ASSESSMENT AND PLAN: This patient is a 72-year-old male who presents with difficulty breathing that could be secondary to pneumonia versus coronary disease his COPD exacerbation. 1. Will obtain labs, cardiac enzymes, chest x-ray. 2. Will give nebulizer treatments with IV Solu-Medrol and reassess for improvement. TRAVEL OUTSIDE OF THE [place] IN LAST 30 DAYS: No - Related Data Allergies/Adverse Reactions: levofloxacin Adverse Reaction (Verified 12/13/17 08:41) Hives Past Medical History - General Information source: Relative - Social History Smoking Status: Former Smoker Chew tobacco use (# tins/day): No Frequency of alcohol use: None Drug Abuse: None Lives with: Family Family History: Reviewed & Not Pertinent, CAD, COPD, Hypertension - Past Medical History Cardiac Medical History: Reports: Hx Congestive Heart Failure, Hx Heart Attack, Hx Hypertension Pulmonary Medical History: Reports: Hx COPD, Hx Pneumonia EENT Medical History: Reports: None Neurological Medical History: Reports: Hx Cerebrovascular Accident. Denies: Hx Seizures Endocrine Medical History: Reports: Hx Diabetes Mellitus Type 2. Denies: Hx Diabetes Mellitus Type 1, Hx Hyperthyroidism Renal/ Medical History: Reports: None. Denies: Hx Peritoneal Dialysis Malignancy Medical History: Reports None GI Medical History: Reports: Hx Gastroesophageal Reflux Disease. Denies: Hx Cirrhosis, Hx Hepatitis Musculoskeletal Medical History: Reports None, Denies Hx Arthritis, Denies Hx Gout Skin Medical History: Reports None, Denies Hx Eczema, Denies Hx Psoriasis Psychiatric Medical History: Reports: Hx Depression, Hx Schizoaffective Disorder, Hx Schizophrenia Traumatic Medical History: Reports: None Infectious Medical History: Reports: None. Denies: Hx Hepatitis Past Surgical History: Reports: Hx Genitourinary Surgery, Other - PEG tube placement, ? previous TURP - Immunizations Immunizations up to date: Yes Hx Diphtheria, Pertussis, Tetanus Vaccination: Yes History of Influenza Vaccine for 01/2017 - 06/2017 Season: Yes Hx Pneumococcal Vaccination: 04/27/16 Physical Exam - Vital signs Vitals: Temp Resp 99.0 F 24 H 06/18/18 20:52 06/18/18 20:52 Course - Re-evaluation Re-evalutation: 06/19/18 03:42 Labs, cardiac enzymes, and chest x-ray are normal. Patient is able to breathe normally now, repeat examination shows no further evidence of wheezing and oxygen saturations have improved to normal. Patient will be discharged home with return precautions and follow-up. Both the patient and his indicate understanding and agreeing with the plan. - Vital Signs Vital signs: Temp Pulse Resp BP Pulse Ox 99.0 F 18 89/68 L 97 06/18/18 20:52 06/19/18 03:01 06/19/18 03:00 06/19/18 03:01 - Laboratory Result Diagrams: 06/18/18 22:45 06/18/18 22:45 Laboratory results interpreted by me: 06/18/18 06/18/18 06/19/18 22:45 22:45 01:38 RDW 15.9 H Seg Neutrophils % 39.7 L Lymphocytes % 45.1 H Eosinophils % 6.8 H Carbonic Acid 1.61 H ABG pCO2 53.4 H ABG pO2 36.8 L* ABG HCO3 29.2 H ABG Total CO2 30.8 H ABG O2 Saturation 66.7 L Sodium 145.7 H Carbon Dioxide 32 H BUN 23 H Glucose 116 H Calcium 10.8 H Creatine Kinase 35 L Urine Blood Ur Leukocyte Esterase Urine Ascorbic Acid 06/19/18 03:13 RDW Seg Neutrophils % Lymphocytes % Eosinophils % Carbonic Acid ABG pCO2 ABG pO2 ABG HCO3 ABG Total CO2 ABG O2 Saturation Sodium Carbon Dioxide BUN Glucose Calcium Creatine Kinase Urine Blood SMALL H Ur Leukocyte Esterase LARGE H Urine Ascorbic Acid 40 H - Diagnostic Test Radiology reviewed: Image reviewed, Reports reviewed - EKG Interpretation by Me EKG shows normal: Sinus rhythm Rate: Tachycardia Rhythm: NSR Henning/QRS: No: Right axis deviation, Left axis deviation, RBBB, LBBB, IVCD, LAHB/LAFB, LPHB/LPFB, Bifasicular block Voltage: No: Increased voltage, Consistant with LVH, Decreased voltage, Throughout, Limb leads P Waves: No: PAO, LAE, Absent, AV Dissociation, Other Heart block present: No: 1st Degree, Mobitz 1, Mobitz 2, CHB (3rd degree block) When compared to previous EKG there are: No significant change Discharge - Discharge Clinical Impression: COPD exacerbation Condition: Good Disposition: HOME, SELF-CARE Instructions: Chronic Obstructive Lung Disease ([facility]) Additional Instructions: You have been evaluated in the Emergency Department for difficulty breathing. While here, you had blood work and a chest x-ray that were normal. You were given breathing nebulizer treatments as well as IV steroids and it is now safe to be discharged home. Please follow-up with your primary physician as instructed in 1 week to be rechecked. Return to the Emergency Department if you experience chest pain, worsening breathing, high fevers, or any other concerning symptoms. Prescriptions: Benzonatate [Tessalon Perles 100 mg Capsule] 100 mg PO Q8HP PRN #40 capsule PRN Reason: Azithromycin [Zithromax 250 mg Tablet] 250 mg PO ASDIR PRN #6 tablet PRN Reason: Methylprednisolone [Medrol Dosepack (4 mg/Tab) 21 Tab/Dosepak] 4 mg PO ASDIR PRN #21 tab.ds.[id number] PRN Reason: Referrals: FIDEL HANDY DO [Primary Care Provider] - Follow up as needed Print Language: Gabonese
[2018-06-18] MEDS: ALBUTEROL SULFATE 0.083% NEB 2.5 MG/3 ML AMPUL NEB SCH ×2 (21:25→22:01)
--- NOTE | 2018-06-18 22:21 | RADIOLOGY REPORT (SQ) ---
EXAM DESCRIPTION: XR CHEST 1 VIEW COMPLETED DATE/TME: 06/18/2018 20:50 CLINICAL HISTORY: 72 years, Male, difficulty breathing COMPARISON: 05/15/2018 chest NUMBER OF VIEWS: 1 TECHNIQUE: AP portable chest LIMITATIONS: None. FINDINGS: Heart size is normal. Osteopenia. COPD. Lungs are clear. No pneumothorax IMPRESSION: COPD. Lungs are clear copyright 2011 [employer]- All Rights Reserved
[2018-06-18 22:56] LABS: ABSOLUTE EOSINOPHILS # (AUTO) 0.5 10^3/uL (0.0-0.6); ABSOLUTE LYMPHOCYTES (AUTO) 3.3 10^3/uL (0.5-4.7); ABSOLUTE MONOCYTES (AUTO) 0.6 10^3/uL (0.1-1.4); ABSOLUTE NEUT (AUTO) 2.9 10^3/uL (1.7-8.2); BASOPHILS % (AUTO) 0.5 % (0-2); EOSINOPHILS % (AUTO) 6.8 % (0-6); HEMATOCRIT 41.8 % (37.9-51.0); HEMOGLOBIN 13.9 g/dL (13.5-17.0); LYMPHOCYTES % (AUTO) 45.1 % (13-45); MEAN CORPUSCULAR HEMOGLOBIN 28.5 pg (27.0-33.4); MEAN CORPUSCULAR HGB CONC 33.2 g/dL (32.0-36.0); MEAN CORPUSCULAR VOLUME 86 fl (80-97); MONOCYTES % (AUTO) 7.9 % (3-13); PLATELET COUNT 199 10^3/uL (150-450); RED BLOOD COUNT 4.87 10^6/uL (4.35-5.55); RED CELL DISTRIBUTION WIDTH 15.9 % (11.5-14.0); SEGMENTED NEUTROPHILS % (AUTO) 39.7 % (42-78); TOTAL CELLS COUNTED % (AUTO) 100 %; WHITE BLOOD COUNT 7.4 10^3/uL (4.0-10.5)
[2018-06-18 23:14] LABS: ALANINE AMINOTRANSFERASE 35 U/L (21-72); ALBUMIN 4.2 g/dL (3.5-5.0); ALKALINE PHOSPHATASE 71 U/L (38-126); ANION GAP 10 (5-19); ASPARTATE AMINO TRANSFERASE 25 U/L (17-59); BILIRUBIN,DIRECT 0.2 mg/dL (0.0-0.4); BILIRUBIN,TOTAL 0.4 mg/dL (0.2-1.3); BLOOD UREA NITROGEN 23 mg/dL (7-20); CALCIUM 10.8 mg/dL (8.4-10.2); CARBON DIOXIDE 32 mmol/L (22-30); CHLORIDE 104 mmol/L (98-107); CREATINE KINASE 35 U/L (55-170); GLUCOSE 116 mg/dL (75-110); POTASSIUM 4.3 mmol/L (3.6-5.0); SODIUM 145.7 mmol/L (137-145); TOTAL PROTEIN 8.1 g/dL (6.3-8.2)
[2018-06-18 23:25] LABS: CREATINE KINASE MB 1.47 ng/mL (<4.55); NT PRO BNP 674 pg/mL (5-900); TROPONIN I < 0.012 ng/mL
[2018-06-19 01:59] LABS: ARTERIAL BLOOD BASE EXCESS 2.5 mmol/L; ARTERIAL BLOOD H2CO3 1.61 mmol/L (1.05-1.35); ARTERIAL BLOOD HCO3 29.2 mmol/L (20-24); ARTERIAL BLOOD O2 SATURATION 66.7 % (94-98); ARTERIAL BLOOD PCO2 53.4 mmHg (35-45); ARTERIAL BLOOD PH 7.36 (7.35-7.45); ARTERIAL BLOOD TOTAL CO2 30.8 mmol/L (23-27)
[2018-06-19 02:00] LABS: ARTERIAL BLOOD FIO2 21%
[2018-06-19 02:01] LABS: ARTERIAL BLOOD PO2 36.8 mmHg (80-100)
[2018-06-19 03:35] LABS: APPEARANCE,URINE CLOUDY; BILIRUBIN,URINE NEGATIVE (NEGATIVE); GLUCOSE, URINE NEGATIVE (NEGATIVE); KETONES,URINE NEGATIVE (NEGATIVE); LEUKOCYTE ESTERASE,URINE LARGE (NEGATIVE); NITRITE,URINE NEGATIVE (NEGATIVE); PROTEIN,URINE NEGATIVE (NEGATIVE); URINE SPECIFIC GRAVITY 1.024; UROBILINOGEN,URINE NEGATIVE mg/dL (<2.0)
[2018-06-19 03:36] LABS: COLOR,URINE DARK YELLOW
[2018-06-19 04:27] VITALS: BP 110/83
--- NOTE | 2018-06-19 10:27 | EKG REPORT ---
SEVERITY:- ABNORMAL ECG - SINUS TACHYCARDIA LEFT ANTERIOR FASCICULAR BLOCK ANTEROLATERAL INFARCT, OLD : Confirmed by: Barb Monzon MD 19-Jun-2018 10:26:29
== END 2018-06-19 04:35 | disposition home or self-care (01) ==
LOC: ER 20:45
DX: J44.1 Chronic obstructive pulmonary disease with (acute) exacerbation (principal); I50.9 Heart failure, unspecified; I11.0 Hypertensive heart disease with heart failure; E11.9 Type 2 diabetes mellitus without complications; I25.2 Old myocardial infarction; Z88.3 Allergy status to other anti-infective agents; Z86.73 Personal history of transient ischemic attack (TIA), and cerebral infarction without residual deficits
CPT/HCPCS: 93005; 94640 ×2; 99285; 96374; 36415; 82553; 82803; 82550; 85025; 80053; 81001; 84484; 83880; 71045; 93010; 36600; J2930; A9270 ×2; J7620

== ENCOUNTER 2018-08-02 11:43 | Inpatient (IN) | payer MEDICARE, MEDICAID ==
--- NOTE | 2018-08-02 12:22 | RADIOLOGY REPORT (SQ) ---
EXAM DESCRIPTION: CHEST SINGLE VIEW COMPLETED DATE/TIME: 08/02/2018 12:01 pm REASON FOR STUDY: dyspnea COMPARISON: 06/18/2018 NUMBER OF VIEWS: One view. TECHNIQUE: Single frontal radiographic image of the chest acquired. LIMITATIONS: None. FINDINGS: LUNGS AND PLEURA: Lung vasques are hyperexpanded. No consolidation or effusions. There is scarring in the lung apices. MEDIASTINUM AND HILAR STRUCTURES: Unremarkable. HEART AND VASCULAR STRUCTURES: Stable in appearance. BONES: No acute findings. OTHER: No other significant finding. IMPRESSION: COPD. Scarring in the lung apices. No acute findings. TECHNICAL DOCUMENTATION: JOB ID: [id number] [employer] All Rights Reserved Reading location - IP/workstation name: [email or web address]
[2018-08-02 12:30] LABS: ABSOLUTE EOSINOPHILS # (AUTO) 0.3 10^3/uL (0.0-0.6); ABSOLUTE LYMPHOCYTES (AUTO) 2.2 10^3/uL (0.5-4.7); ABSOLUTE MONOCYTES (AUTO) 0.7 10^3/uL (0.1-1.4); ABSOLUTE NEUT (AUTO) 4.8 10^3/uL (1.7-8.2); BASOPHILS % (AUTO) 0.4 % (0-2); EOSINOPHILS % (AUTO) 3.7 % (0-6); HEMATOCRIT 40.9 % (37.9-51.0); HEMOGLOBIN 13.7 g/dL (13.5-17.0); LYMPHOCYTES % (AUTO) 26.9 % (13-45); MEAN CORPUSCULAR HEMOGLOBIN 28.9 pg (27.0-33.4); MEAN CORPUSCULAR HGB CONC 33.3 g/dL (32.0-36.0); MEAN CORPUSCULAR VOLUME 87 fl (80-97); PLATELET COUNT 221 10^3/uL (150-450); RED BLOOD COUNT 4.72 10^6/uL (4.35-5.55); RED CELL DISTRIBUTION WIDTH 14.9 % (11.5-14.0); TOTAL CELLS COUNTED % (AUTO) 100 %
[2018-08-02] MEDS ORDERED: ACETAMINOPHEN 325 MG TABLET PO ONE (12:33)
[2018-08-02] MEDS ORDERED: NORMAL SALINE 1000 ML 1,000 ML IV ONE ×2 (12:33→16:43)
[2018-08-02] MEDS ORDERED: ONDANSETRON HCL INJ/PF 4 MG/2 ML SDV IV ONE (12:34)
[2018-08-02] MEDS ORDERED: MORPHINE SULFATE 10 MG/ML INJ IV ONE (12:34)
[2018-08-02] MEDS ORDERED: ALBUTEROL SULFATE 0.083% NEB 2.5 MG/3 ML AMPUL NEB ONE (12:34)
[2018-08-02 12:36] LABS: APPEARANCE,URINE CLOUDY; BILIRUBIN,URINE NEGATIVE (NEGATIVE); COLOR,URINE YELLOW; GLUCOSE, URINE NEGATIVE (NEGATIVE); KETONES,URINE NEGATIVE (NEGATIVE); LEUKOCYTE ESTERASE,URINE LARGE (NEGATIVE); NITRITE,URINE NEGATIVE (NEGATIVE); PROTEIN,URINE >=500 mg/dL (NEGATIVE); URINE SPECIFIC GRAVITY 1.024; UROBILINOGEN,URINE NEGATIVE mg/dL (<2.0)
--- NOTE | 2018-08-02 12:40 | ER Document Report ---
ED General - General Chief Complaint: Respiratory Distress Stated Complaint: BREATHING PROBLEMS Time Seen by Provider: 08/02/18 11:49 Primary Care Provider: FIDEL HANDY DO [Primary Care Provider] - Follow up as needed TRAVEL OUTSIDE OF THE [place] IN LAST 30 DAYS: No - HPI Notes: Patient is a 72-year-old male that presents to the emergency department for chief complaint of shortness of breath and abdominal pain. Patient's family states he started appearing more short of breath yesterday. Patient has been gesturing that he has been having abdominal pain since yester day as well. He is a phasic at baseline after having a stroke a few years ago. Patient does comprehend the conversation and will gesture and nod yes and no at baseline. They deny any vomiting. Patient is slowly fed through a PEG tube because of dysphasia. He also has an indwelling suprapubic Pickard catheter. Family states the catheter has been draining normally and they have not seen any blood or sediment in the urine. They do report he had a fever a few days ago that responded to Tylenol and has not returned since. Patient has not been coughing or appeared congested. He does have COPD and has been getting albuterol twice daily. He did have an albuterol treatment before bed last nig ht. Past Medical History: COPD, CAD, ischemic strokes, aphasia Past Surgical History: Suprapubic Pickard catheter, PEG tube Social History: No alcohol or tobacco Family History: Reviewed and noncontributory for presenting illness Allergies: Reviewed, see documented allergy list. REVIEW OF SYSTEMS: CONSTITUTIONAL : fever No chills No diaphoresis No recent illness EENT: No vision changes No congestion No sore throat CARDIOVASCULAR: No chest pain No palpitations RESPIRATORY: shortness of breath No cough difficulty breathing GASTROINTESTINAL: abdominal pain nausea No vomiting No diarrhea GENITOURINARY: No dysuria No hematuria No difficulty urinating MUSCULOSKELETAL: No back pain No leg pain No arm pain SKIN: No rashes No lesions LYMPHATIC: No swollen, enlarged glands. NEUROLOGICAL: No lightheadedness No headache No weakness No paresthesias PSYCHIATRIC: No anxiety No depression PHYSICAL EXAMINATION: Vital signs reviewed, nursing noted reviewed. GENERAL: Well-appearing, thin and in no acute distress. HEAD: Atraumatic, normocephalic. EYES: Eyes appear normal, extraocular movements intact, sclera anicteric, conjunctiva are normal. ENT: nares patent, oropharynx clear without exudates. Mildly dry mucous membranes. NECK: Normal range of motion, supple without lymphadenopathy LUNGS: Tachypneic with shallow respirations and no accessory muscle use. Bilateral coarse lung sounds and wheezing. HEART: Tachycardic rate and regular rhythm without murmurs ABDOMEN: Protuberant, suprapubic ostomy and PEG tube ostomy clean, dry and intact with no active draining or surrounding erythema. Abdomen soft, mild diffuse tenderness. No rebound, guarding, or rigidity. No masses appreciated. EXTREMITIES: Nontender, good range of motion, no pitting or edema. NEUROLOGICAL: Aphasia, flexion contractures to bilateral hands. Moves all extremities spontaneously Motor and sensory grossly intact on exam. PSYCH: Normal mood, normal affect. SKIN: Warm, Dry, normal turgor, no rashes or lesions noted on exposed skin - Related Data Allergies/Adverse Reactions: levofloxacin Adverse Reaction (Verified 12/13/17 08:41) Hives Past Medical History - Social History Smoking Status: Never Smoker Family History: Reviewed & Not Pertinent, CAD, COPD, Hypertension - Past Medical History Cardiac Medical History: Reports: Hx Congestive Heart Failure, Hx Heart Attack, Hx Hypertension Pulmonary Medical History: Reports: Hx COPD, Hx Pneumonia Neurological Medical History: Reports: Hx Cerebrovascular Accident. Denies: Hx Seizures Endocrine Medical History: Reports: Hx Diabetes Mellitus Type 2. Denies: Hx Diabetes Mellitus Type 1, Hx Hyperthyroidism Renal/ Medical History: Denies: Hx Peritoneal Dialysis GI Medical History: Reports: Hx Gastroesophageal Reflux Disease. Denies: Hx Cirrhosis, Hx Hepatitis Musculoskeletal Medical History: Denies Hx Arthritis, Denies Hx Gout Skin Medical History: Denies Hx Eczema, Denies Hx Psoriasis Psychiatric Medical History: Reports: Hx Depression, Hx Schizoaffective Disorder, Hx Schizophrenia Infectious Medical History: Denies: Hx Hepatitis Past Surgical History: Reports: Hx Genitourinary Surgery, Other - PEG tube placement, ? previous TURP - Immunizations Immunizations up to date: Yes Hx Diphtheria, Pertussis, Tetanus Vaccination: Yes Hx Pneumococcal Vaccination: 04/27/16 Physical Exam - Vital signs Vitals: Resp 39 H 08/02/18 11:52 Course - Re-evaluation Re-evalutation: 08/02/18 12:39 Vitals reviewed per nurse's notes reviewed. Patient is alert and interacting with questioning. He is tachycardic and did receive 125 mg of Solu-Medrol and 1 DuoNeb by EMS prior to arrival. Patient will be given IV fluids, Zofran, morphine and albuterol for further symptomatic management. His EKG shows a tachycardic rate with no acute ischemic changes. 08/02/18 15:33 Patient's lab work shows no leukocytosis. His CAT scan shows a large amount of colonic dilatation. Patient does have PEG tube in which was placed to low inter mittent suction. This has improved patient's abdominal discomfort but he is ammonia distiller diffusely and uncomfortable. He declined further pain medication. Patient has improvement of his respiratory status and his tachypnea has significantly improved. He is still tachycardic. Patient's urine is consistent with UTI. He was given a dose of Rocephin. Urine culture was sent. He will be admitted to the hospital for further management. I did discuss his care with Dr. Brown who accepts admission. Patient's care was also discussed with Dr. Lawton who will consult on patient's ileus. Laboratory 08/02/18 08/02/18 08/02/18 12:15 12:15 12:15 WBC 8.0 RBC 4.72 Hgb 13.7 Hct 40.9 MCV 87 MCH 28.9 MCHC 33.3 RDW 14.9 H Plt Count 221 Seg Neutrophils % 60.0 Lymphocytes % 26.9 Monocytes % 9.0 Eosinophils % 3.7 Basophils % 0.4 Absolute Neutrophils 4.8 Absolute Lymphocytes 2.2 Absolute Monocytes 0.7 Absolute Eosinophils 0.3 Absolute Basophils 0.0 PT INR VBG pH VBG pCO2 VBG HCO3 VBG Base Excess Sodium Cancelled Potassium Cancelled Chloride Cancelled Carbon Dioxide Cancelled Anion Gap Cancelled BUN Cancelled Creatinine Cancelled Est GFR ( Amer) Cancelled Est GFR (Non-Af Amer) Cancelled Glucose Cancelled Lactic Acid Calcium Cancelled Total Bilirubin Cancelled Direct Bilirubin Cancelled Neonat Total Bilirubin Cancelled Neonat Direct Bilirubin Cancelled Neonat Indirect Bili Cancelled AST Cancelled ALT Cancelled Alkaline Phosphatase Cancelled Troponin I Cancelled Total Protein Cancelled Albumin Cancelled Urine Color Urine Appearance Urine pH Ur Specific [place] Urine Protein Urine Glucose (UA) Urine Ketones Urine Blood Urine Nitrite Urine Bilirubin Urine Urobilinogen Ur Leukocyte Esterase Urine WBC (Auto) Urine RBC (Auto) U Hyaline Cast (Auto) Urine Bacteria (Auto) Urine Red Cell Clumps Urine WBC Clumps Squamous Epi Cells Auto U Non-Squamous Epis Auto Calcium Carbonate Cryst Calcium Phosphate Cryst Calcium Oxalate Cr Auto Leucine Crystals Cystine Crystals Uric Acid Cryst (Auto) Triple Phos Cryst (Auto) Tyrosine Crystals Amorphous Sediment Auto Cellular Casts Epithelial Casts (Auto) Fatty Casts Granular Casts (Auto) Waxy Casts (Auto) Broad Casts RBC Casts (Auto) WBC Casts (Auto) Urine Mucus (Auto) U Trichomonas (Auto) Ur Yeast w Hyphae Urine Yeast (Budding) Urine Ascorbic Acid 08/02/18 08/02/18 08/02/18 12:15 12:15 12:15 WBC RBC Hgb Hct MCV MCH MCHC RDW Plt Count Seg Neutrophils % Lymphocytes % Monocytes % Eosinophils % Basophils % Absolute Neutrophils Absolute Lymphocytes Absolute Monocytes Absolute Eosinophils Absolute Basophils PT 15.5 H INR 1.17 VBG pH VBG pCO2 VBG HCO3 VBG Base Excess Sodium Potassium Chloride Carbon Dioxide Anion Gap BUN Creatinine Est GFR ( Amer) Est GFR (Non-Af Amer) Glucose Lactic Acid 1.8 Calcium Total Bilirubin Direct Bilirubin Neonat Total Bilirubin Neonat Direct Bilirubin Neonat Indirect Bili AST ALT Alkaline Phosphatase Troponin I Total Protein Albumin Urine Color YELLOW Urine Appearance CLOUDY Urine pH 6.0 [address] [place] 1.024 Urine Protein >=500 H Urine Glucose (UA) NEGATIVE Urine Ketones NEGATIVE Urine Blood NEGATIVE Urine Nitrite NEGATIVE Urine Bilirubin NEGATIVE Urine Urobilinogen NEGATIVE Ur Leukocyte Esterase LARGE H Urine WBC (Auto) >182 Urine RBC (Auto) 120 U Hyaline Cast (Auto) Urine Bacteria (Auto) 1+ Urine Red Cell Clumps Urine WBC Clumps MANY Squamous Epi Cells Auto <1 U Non-Squamous Epis Auto Calcium Carbonate Cryst Calcium Phosphate Cryst Calcium Oxalate Cr Auto Leucine Crystals Cystine Crystals Uric Acid Cryst (Auto) Triple Phos Cryst (Auto) Tyrosine Crystals Amorphous Sediment Auto Cellular Casts Epithelial Casts (Auto) Fatty Casts Granular Casts (Auto) Waxy Casts (Auto) Broad Casts RBC Casts (Auto) WBC Casts (Auto) Urine Mucus (Auto) OCC U Trichomonas (Auto) Ur Yeast w Hyphae Urine Yeast (Budding) Urine Ascorbic Acid 40 H 08/02/18 08/02/18 08/02/18 12:15 12:15 13:34 WBC RBC Hgb Hct MCV MCH MCHC RDW Plt Count Seg Neutrophils % Lymphocytes % Monocytes % Eosinophils % Basophils % Absolute Neutrophils Absolute Lymphocytes Absolute Monocytes Absolute Eosinophils Absolute Basophils PT INR VBG pH 7.33 VBG pCO2 54.1 VBG HCO3 27.9 VBG Base Excess 0.7 Sodium 144.2 Potassium 3.8 Chloride 112 H Carbon Dioxide 27 Anion Gap 5 BUN 23 H Creatinine 0.87 Est GFR ( Amer) > 60 Est GFR (Non-Af Amer) > 60 Glucose 134 H Lactic Acid Calcium 9.7 Total Bilirubin 0.3 Direct Bilirubin 0.3 Neonat Total Bilirubin Not Reportable Neonat Direct Bilirubin Not Reportable Neonat Indirect Bili Not Reportable AST 28 ALT 35 Alkaline Phosphatase 70 Troponin I Total Protein 7.4 Albumin 3.7 Urine Color Cancelled Urine Appearance Cancelled Urine pH Cancelled Ur Specific [place] Cancelled Urine Protein Cancelled Urine Glucose (UA) Cancelled Urine Ketones Cancelled Urine Blood Cancelled Urine Nitrite Cancelled Urine Bilirubin Cancelled Urine Urobilinogen Cancelled Ur Leukocyte Esterase Cancelled Urine WBC (Auto) Cancelled Urine RBC (Auto) Cancelled U Hyaline Cast (Auto) Cancelled Urine Bacteria (Auto) Cancelled Urine Red Cell Clumps Cancelled Urine WBC Clumps Cancelled Squamous Epi Cells Auto Cancelled U Non-Squamous Epis Auto Cancelled Calcium Carbonate Cryst Cancelled Calcium Phosphate Cryst Cancelled Calcium Oxalate Cr Auto Cancelled Leucine Crystals Cancelled Cystine Crystals Cancelled Uric Acid Cryst (Auto) Cancelled Triple Phos Cryst (Auto) Cancelled Tyrosine Crystals Cancelled Amorphous Sediment Auto Cancelled Cellular Casts Cancelled Epithelial Casts (Auto) Cancelled Fatty Casts Cancelled Granular Casts (Auto) Cancelled Waxy Casts (Auto) Cancelled Broad Casts Cancelled RBC Casts (Auto) Cancelled WBC Casts (Auto) Cancelled Urine Mucus (Auto) Cancelled U Trichomonas (Auto) Cancelled Ur Yeast w Hyphae Cancelled Urine Yeast (Budding) Cancelled Urine Ascorbic Acid Cancelled 08/02/18 13:34 WBC RBC Hgb Hct MCV MCH MCHC RDW Plt Count Seg Neutrophils % Lymphocytes % Monocytes % Eosinophils % Basophils % Absolute Neutrophils Absolute Lymphocytes Absolute Monocytes Absolute Eosinophils Absolute Basophils PT INR VBG pH VBG pCO2 VBG HCO3 VBG Base Excess Sodium Potassium Chloride Carbon Dioxide Anion Gap BUN Creatinine Est GFR ( Amer) Est GFR (Non-Af Amer) Glucose Lactic Acid Calcium Total Bilirubin Direct Bilirubin Neonat Total Bilirubin Neonat Direct Bilirubin Neonat Indirect Bili AST ALT Alkaline Phosphatase Troponin I < 0.012 Total Protein Albumin Urine Color Urine Appearance Urine pH Ur Specific [place] Urine Protein Urine Glucose (UA) Urine Ketones Urine Blood Urine Nitrite Urine Bilirubin Urine Urobilinogen Ur Leukocyte Esterase Urine WBC (Auto) Urine RBC (Auto) U Hyaline Cast (Auto) Urine Bacteria (Auto) Urine Red Cell Clumps Urine WBC Clumps Squamous Epi Cells Auto U Non-Squamous Epis Auto Calcium Carbonate Cryst Calcium Phosphate Cryst Calcium Oxalate Cr Auto Leucine Crystals Cystine Crystals Uric Acid Cryst (Auto) Triple Phos Cryst (Auto) Tyrosine Crystals Amorphous Sediment Auto Cellular Casts Epithelial Casts (Auto) Fatty Casts Granular Casts (Auto) Waxy Casts (Auto) Broad Casts RBC Casts (Auto) WBC Casts (Auto) Urine Mucus (Auto) U Trichomonas (Auto) Ur Yeast w Hyphae Urine Yeast (Budding) Urine Ascorbic Acid Chest X-Ray 08/02/18 11:48 IMPRESSION: COPD. Scarring in the lung apices. No acute findings. Abdomen/Pelvis CT 08/02/18 12:34 IMPRESSION: Likely fecal impaction. Considerable air in the colon. No evidence of bowel obstruction. Thickening of the left adrenal gland. - Vital Signs Vital signs: Temp Pulse Resp BP Pulse Ox 98.0 F 27 H 115/63 97 08/02/18 12:23 08/02/18 14:01 08/02/18 14:01 08/02/18 14:01 - Laboratory Result Diagrams: 08/02/18 12:15 08/02/18 13:34 Laboratory results interpreted by me: 08/02/18 08/02/18 08/02/18 12:15 12:15 12:15 RDW 14.9 H PT 15.5 H Chloride BUN Glucose Urine Protein >=500 H Ur Leukocyte Esterase LARGE H Urine Ascorbic Acid 40 H 08/02/18 13:34 RDW PT Chloride 112 H BUN 23 H Glucose 134 H Urine Protein Ur Leukocyte Esterase Urine Ascorbic Acid - EKG Interpretation by Me Additional EKG results interpreted by me: 08/02/18 12:39 Interpreted by myself 04/18/2005: Sinus tachycardia, rate 130, left anterior fascicular block, left axis, no ectopy Discharge - Discharge Clinical Impression: Ileus, Abdominal distention, Acute UTI, Tachycardia, Shortness of breath, COPD exacerbation Condition: Stable Disposition: ADMITTED INPATIENT Admitting Provider: Kevin (Hospitalist) Unit Admitted: Telemetry Referrals: FIDEL HANDY DO [Primary Care Provider] - Follow up as needed
[2018-08-02 13:04] LABS: INTERNATIONAL RATION (INR) 1.17; PROTHROMBIN TIME 15.5 SEC (11.4-15.4)
[2018-08-02 13:06] LABS: VENOUS BLOOD BASE EXCESS 0.7 mmol/L; VENOUS BLOOD HCO3 27.9 mmol/L (20-32); VENOUS BLOOD PCO2 54.1 mmHg (35-63); VENOUS BLOOD PH 7.33 (7.30-7.42)
[2018-08-02] MEDS ORDERED: CEFTRIAXONE INJ 1000 MG VIAL IV ONE (13:52)
[2018-08-02 14:10] LABS: ALANINE AMINOTRANSFERASE 35 U/L (21-72); ALBUMIN 3.7 g/dL (3.5-5.0); ALKALINE PHOSPHATASE 70 U/L (38-126); ASPARTATE AMINO TRANSFERASE 28 U/L (17-59); BILIRUBIN,DIRECT 0.3 mg/dL (0.0-0.4); BILIRUBIN,TOTAL 0.3 mg/dL (0.2-1.3); BLOOD UREA NITROGEN 23 mg/dL (7-20); CALCIUM 9.7 mg/dL (8.4-10.2); GLUCOSE 134 mg/dL (75-110); POTASSIUM 3.8 mmol/L (3.6-5.0); TOTAL PROTEIN 7.4 g/dL (6.3-8.2)
[2018-08-02 14:16] LABS: ANION GAP 5 (5-19); CARBON DIOXIDE 27 mmol/L (22-30); CHLORIDE 112 mmol/L (98-107); SODIUM 144.2 mmol/L (137-145)
--- NOTE | 2018-08-02 15:03 | RADIOLOGY REPORT (SQ) ---
EXAM DESCRIPTION: CT ABD/PELVIS WITH IV ONLY COMPLETED DATE/TIME: 08/02/2018 2:46 pm REASON FOR STUDY: abdominal pain COMPARISON: 06/25/2017 TECHNIQUE: CT scan of the abdomen and pelvis performed using helical scanning technique with dynamic intravenous contrast injection. No oral contrast. Images reviewed with lung, soft tissue, and bone windows. Reconstructed coronal and sagittal MPR images reviewed. Delayed images for evaluation of the urinary system also acquired. All images stored on PACS. All CT scanners at this facility use dose modulation, iterative reconstruction, and/or weight based d osing when appropriate to reduce radiation dose to as low as reasonably achievable (ALARA). [facility]: Dose Right [facility]: CareDose [facility]: Dose Right [facility]: Teradose 4D [facility]: [employer] CONTRAST TYPE AND DOSE: contrast/concentration: Isovue 350.00 mg/ml; Total Contrast Delivered: 62.0 ml; Total Saline Delivered: 65.0 ml RENAL FUNCTION: BUN 23 creatinine 0.87 RADIATION DOSE: CT Rad equipment meets quality standard of care and radiation dose reduction techniq ues were employed. CTDIvol: NaN - NaN mGy. DLP: 0 mGy-cm.. LIMITATIONS: None. FINDINGS: LOWER CHEST: No significant findings. No nodules or infiltrates. LIVER: Normal size. No masses. No dilated ducts. SPLEEN: Normal size. No focal lesions. PANCREAS: No masses. No significant calcifications. No adjacent inflammation or peripancreatic fluid collections. Pancreatic duct not dilated. GALLBLADDER: No identified stones by CT criteria. No inflammatory changes to suggest cholecystitis. ADRENAL GLANDS: The thickening in the left adrenal gland. RIGHT KIDNEY AND URETER: No solid masses. No significant calcifications. No hydronephrosis or hyd roureter. LEFT KIDNEY AND URETER: No solid masses. No significant calcifications. No hydronephrosis or hydr oureter. AORTA AND VESSELS: No aneurysm. No dissection. Renal arteries, SMA, celiac without stenosis. RETROPERITONEUM: No retroperitoneal adenopathy, hemorrhage or masses. BOWEL AND PERITONEAL CAVITY: There is a large amount of gas in the colon. There are no dilated loops of small bowel. Large amount of stool is present in the rectum. APPENDIX: Not identified. PELVIS: A suprapubic catheter is present in the urinary bladder. ABDOMINAL WALL: No masses. No hernias. BONES: No significant or acute findings. OTHER: No other significant finding. IMPRESSION: Likely fecal impaction. Considerable air in the colon. No evidence of bowel obstructio n. Thickening of the left adrenal gland. TECHNICAL DOCUMENTATION: JOB ID: [id number] Quality ID # [id number]: Final reports with documentation of one or more dose reduction techniques (e.g., Au tomated exposure control, adjustment of the mA and/or kV according to patient size, use of iterative reconstruction technique) 2010 [employer]- All Rights Reserved Reading location - IP/workstation name: [email or web address]
--- NOTE | 2018-08-02 15:34 | EKG REPORT ---
SEVERITY:- ABNORMAL ECG - SINUS TACHYCARDIA LEFT ANTERIOR FASCICULAR BLOCK CONSIDER ANTERIOR INFARCT : Confirmed by: Barb Monzon MD 02-Aug-2018 15:34:16
[2018-08-02] MEDS ORDERED: ACETAMINOPHEN 325 MG TABLET PEG PRN (18:18)
[2018-08-02] MEDS ORDERED: ACETAMINOPHEN 650 MG SUPP.RECT PR PRN (18:18)
[2018-08-02] MEDS ORDERED: DEXTROSE 50%-WATER 25 GM/50 ML DISP.SYRIN IV PRN (18:18)
[2018-08-02] MEDS ORDERED: ONDANSETRON HCL INJ/PF 4 MG/2 ML SDV IV PRN ×2 (18:18→19:13)
[2018-08-02] MEDS ORDERED: GLUCAGON,HUMAN RECOMB 1 MG INJ SUBCUT PRN (18:18)
[2018-08-02] MEDS ORDERED: DEXTROSE 40% GEL 15 GM TUBE PO PRN ×2 (18:18)
[2018-08-02] MEDS ORDERED: BISACODYL 10 MG SUPP.RECT PR PRN (19:16)
[2018-08-02] MEDS ORDERED: MORPHINE SULFATE 10 MG/ML INJ IV PRN (19:19)
[2018-08-02] MEDS: DEXTROSE 5%-NORMAL SALINE 1,000 ML IV PRN (19:53)
[2018-08-02] MEDS ORDERED: NA PHOS,M-B/NA PHOS,DI-BA (ADULT) 133 ML ENEMA PR ONE (20:00)
[2018-08-02] MEDS: METOCLOPRAMIDE HCL INJ/PF 10 MG/2 ML SDV IV SCH (20:29)
[2018-08-02] MEDS: BUDESONIDE NEB 0.5 MG/2 ML AMPUL NEB SCH (20:29)
[2018-08-02] MEDS: METOPROLOL TARTRATE 25 MG TABLET PEG SCH (22:07)
[2018-08-02] MEDS: IPRATROPIUM/ALBUTEROL 0.5-2.5 MG/3 ML AMPUL NEB SCH (23:49)
[2018-08-03] MEDS: INSULIN REG, HUMAN 100 UNIT/ML 3 ML VIAL (PYX) SUBCUT SCH ×2 (00:41→06:12)
[2018-08-03] MEDS: DEXTROSE 5%-NORMAL SALINE 1,000 ML IV PRN (03:34)
[2018-08-03] MEDS: METOCLOPRAMIDE HCL INJ/PF 10 MG/2 ML SDV IV SCH ×3 (03:35→22:38)
--- NOTE | 2018-08-03 06:01 | PDOC H&P ---
History of Present Illness Admission Date/PCP: 08/02/18 16:08 FIDEL HANDY DO Patient complains of: Ileus with likely cystitis History of Present Illness: DALY PORTILLO SR is a 72 year old male with an unfortunate and complex medical history. He presents with his sister. The patient has a history of 2 strokes and a myocardial infarction. This has left him with aphasia and dysphagia. He has a PEG tube and suprapubic catheter. The patient's sister reports that he began having a cough several days ago. His face would get flushed. He would get diaphoretic. He was having discomfort in his abdomen and the home health care nurse changed his suprapubic catheter 48 hours ago. This was quite painful for him. His sister reports that he was getting more short of breath and coughing more. There was no sputum production. She did give him a nebulizer treatment in addition to his inhaler therapy and this did not help. She then noted that his abdomen was becoming distended and more painful. At this point he was brought to the emergency room. The patient has a positive urinalysis highly suspicious for infection and was found to have distended loops of bowel by diagnostic imaging. He was referred to hospital service for admission. Past Medical History Cardiac Medical History: Reports: Congestive Heart Failure, Myocardial Infarction, Hypertension Pulmonary Medical History: Reports: Chronic Obstructive Pulmonary Disease (COPD), Pneumonia EENT Medical History: Denies: Cataracts, Ears, Nose, Throat Neurological Medical History: Denies: Seizures Endocrine Medical History: Reports: Diabetes Mellitus Type 2 Denies: Diabetes Mellitus Type 1, Hyperthyroidism Renal/ Medical History: Denies: Chronic Kidney Disease, End Stage Renal Disease, Nephrolithiasis Malignancy Medical History: Reports: None GI Medical History: Reports: Gastroesophageal Reflux Disease Denies: Cirrhosis, Hepatitis Musculoskeltal Medical History: Denies: Arthritis, Gout Skin Medical History: Denies: Eczema, Psoriasis Psychiatric Medical History: Reports: Depression, Schizoaffective Disorder Traumatic Medical History: Reports: None Hematology: Denies: Anemia, Bleeding Tendencies Infectious Medical History: Reports: None Past Surgical History Past Surgical History: Reports: Orthopedic Surgery - Left wrist, Other - PEG tube placement, ? previous TURP, suprapubic catheter Social History Information Source: Relative - The patient's sister provided all of the information. Lives with: Family - He is and lives with his sister Smoking Status: Never Smoker Frequency of Alcohol Use: None Hx Recreational Drug Use: No Drugs: None Hx Prescription Drug Abuse: No - Advance Directive Resuscitation Status: Do Not Resuscitate Surrogate healthcare decision maker:: His sister is the designated healthcare power of deputy prosecuting attorney. Family History Family History: Reviewed & Not Pertinent, CAD, COPD, Hypertension, Malignancy, Other - Renal disease Parental Family History Reviewed: Yes Children Family History Reviewed: Yes Sibling(s) Family History Reviewed.: Yes Medication/Allergy Home Medications: Albuterol Sulfate [Ventolin Hfa 8 gm Mdi (1 Mdi/ER Disp)] 2 puff IH Q4HP PRN 08/02/18 Benzonatate [Tessalon [place] 100 mg Capsule] 100 mg PEG Q8HP PRN 08/02/18 Budesonide [Pulmicort] 5 ml NEB BID 08/02/18 Escitalopram Oxalate [Lexapro 10 mg Tablet] 10 mg PEG DAILY 08/02/18 Metoprolol Tartrate [Lopressor 25 mg Tablet] 25 mg PEG Q12 08/02/18 Nystatin [Mycostatin 500,000 Unit/5 ml Susp Udcup] 5 ml PO TID 08/02/18 Olanzapine [Zyprexa 5 mg Tablet] 5 mg PEG DAILY 08/02/18 Rivaroxaban [Xarelto 15 mg Tablet] 15 mg PEG DAILY 08/02/18 Allergies/Adverse Reactions: levofloxacin Adverse Reaction (Verified 12/13/17 08:41) Hives Review of Systems ROS unobtainable: Other - The patient's sister provided the majority of the information. The patient was able to nod his head yes and no some of the questions. Constitutional: PRESENT: as per HPI Eyes: ABSENT: visual disturbances Ears: ABSENT: hearing changes Nose, Mouth, and Throat: ABSENT: headache(s), mouth pain, sore throat Cardiovascular: ABSENT: chest pain, edema, orthropnea, palpitations Respiratory: PRESENT: cough, dyspnea. ABSENT: hemoptysis, sputum Gastrointestinal: PRESENT: abdominal pain, bloating. ABSENT: constipation, diarrhea, heartburn, nausea, vomiting Genitourinary: PRESENT: other - Discomfort with recent suprapubic catheter change Musculoskeletal: PRESENT: muscle weakness. ABSENT: joint swelling Integumentary: ABSENT: diaphoresis, pruritus, rash Neurological: PRESENT: abnormal gait - The patient does have very limited ambulation. He uses a walker with contact-guard., abnormal speech - Aphasic, weakness. ABSENT: confusion - As noted by appropriate yes and no answers to questions by nodding his head, convulsions, syncope, tremor(s), vertigo Psychiatric: PRESENT: depression. ABSENT: anxiety Endocrine: ABSENT: flushing Hematologic/Lymphatic: ABSENT: easy bleeding, easy bruising Physical Exam Vital Signs: Temp Pulse Resp BP Pulse Ox 98.0 F 27 H 115/63 97 08/02/18 12:23 08/02/18 14:01 08/02/18 14:01 08/02/18 14:01 Intake & Output 08/01/18 08/02/18 08/03/18 06:59 06:59 06:59 Intake Total 1999 Balance 1999 Weight 57.7 kg General appearance: PRESENT: cooperative, mild distress, well-developed Head exam: PRESENT: atraumatic, normocephalic Eye exam: PRESENT: conjunctiva pink. ABSENT: periorbital swelling, scleral icterus Ear exam: PRESENT: normal external ear exam Mouth exam: PRESENT: dry mucosa. ABSENT: tongue midline - Tongue deviates to the right Teeth exam: PRESENT: poor dentation Neck exam: ABSENT: carotid bruit, JVD, lymphadenopathy, tenderness Respiratory exam: PRESENT: clear to auscultation eric, symmetrical, unlabored. ABSENT: accessory muscle use, rales, rhonchi, tachypnea, wheezes Cardiovascular exam: PRESENT: RRR, +S1, +S2. ABSENT: systolic murmur Pulses: PRESENT: normal radial pulses, +1 pedal pulses bilateral Vascular exam: PRESENT: normal capillary refill GI/Abdominal exam: PRESENT: distended, hypoactive bowel sounds, soft, tenderness - Mostly in the lower abdomen left side greater than right. ABSENT: rebound Rectal exam: PRESENT: deferred Gentrourinary exam: PRESENT: indwelling catheter, other - Examination of the penis revealed increased moisture. There is erythema near the meatus. No purulent discharge noted. Extremities exam: PRESENT: other - Upper extremities with contractures.. ABSE NT: calf tenderness, pedal edema Musculoskeletal exam: PRESENT: other - Systemic weakness. Plantar and dorsiflexion were 2/5. Neurological exam: PRESENT: alert, awake, oriented to person, oriented to place, oriented to situation. ABSENT: normal gait Psychiatric exam: PRESENT: depressed, flat affect. ABSENT: agitated, anxious Focused psych exam: ABSENT: restlessness Skin exam: PRESENT: dry, normal color, warm. ABSENT: rash Results Laboratory Results: 08/02/18 12:15 08/02/18 13:34 08/02/18 08/02/18 08/02/18 12:15 12:15 12:15 WBC 8.0 RBC 4.72 Hgb 13.7 Hct 40.9 MCV 87 MCH 28.9 MCHC 33.3 RDW 14.9 H Plt Count 221 Seg Neutrophils % 60.0 Lymphocytes % 26.9 Monocytes % 9.0 Eosinophils % 3.7 Basophils % 0.4 Absolute Neutrophils 4.8 Absolute Lymphocytes 2.2 Absolute Monocytes 0.7 Absolute Eosinophils 0.3 Absolute Basophils 0.0 VBG pH VBG pCO2 VBG HCO3 VBG Base Excess Sodium Cancelled Potassium Cancelled Chloride Cancelled Carbon Dioxide Cancelled Anion Gap Cancelled BUN Cancelled Creatinine Cancelled Est GFR ( Amer) Cancelled Est GFR (Non-Af Amer) Cancelled Glucose Cancelled Lactic Acid Calcium Cancelled Total Bilirubin Cancelled AST Cancelled ALT Cancelled Alkaline Phosphatase Cancelled Total Protein Cancelled Albumin Cancelled Urine Color YELLOW Urine Appearance CLOUDY Urine pH 6.0 Ur Specific [place] 1.024 Urine Protein >=500 H Urine Glucose (UA) NEGATIVE Urine Ketones NEGATIVE Urine Blood NEGATIVE Urine Nitrite NEGATIVE Ur Leukocyte Esterase LARGE H Urine WBC (Auto) >182 Urine RBC (Auto) 120 08/02/18 08/02/18 08/02/18 12:15 12:15 12:15 WBC RBC Hgb Hct MCV MCH MCHC RDW Plt Count Seg Neutrophils % Lymphocytes % Monocytes % Eosinophils % Basophils % Absolute Neutrophils Absolute Lymphocytes Absolute Monocytes Absolute Eosinophils Absolute Basophils VBG pH 7.33 VBG pCO2 54.1 VBG HCO3 27.9 VBG Base Excess 0.7 Sodium Potassium Chloride Carbon Dioxide Anion Gap BUN Creatinine Est GFR ( Amer) Est GFR (Non-Af Amer) Glucose Lactic Acid 1.8 Calcium Total Bilirubin AST ALT Alkaline Phosphatase Total Protein Albumin Urine Color Cancelled Urine Appearance Cancelled Urine pH Cancelled Ur Specific [place] Cancelled Urine Protein Cancelled Urine Glucose (UA) Cancelled Urine Ketones Cancelled Urine Blood Cancelled Urine Nitrite Cancelled Ur Leukocyte Esterase Cancelled Urine WBC (Auto) Cancelled Urine RBC (Auto) Cancelled 08/02/18 13:34 WBC RBC Hgb Hct MCV MCH MCHC RDW Plt Count Seg Neutrophils % Lymphocytes % Monocytes % Eosinophils % Basophils % Absolute Neutrophils Absolute Lymphocytes Absolute Monocytes Absolute Eosinophils Absolute Basophils VBG pH VBG pCO2 VBG HCO3 VBG Base Excess Sodium 144.2 Potassium 3.8 Chloride 112 H Carbon Dioxide 27 Anion Gap 5 BUN 23 H Creatinine 0.87 Est GFR ( Amer) > 60 Est GFR (Non-Af Amer) > 60 Glucose 134 H Lactic Acid Calcium 9.7 Total Bilirubin 0.3 AST 28 ALT 35 Alkaline Phosphatase 70 Total Protein 7.4 Albumin 3.7 Urine Color Urine Appearance Urine pH Ur Specific [place] Urine Protein Urine Glucose (UA) Urine Ketones Urine Blood Urine Nitrite Ur Leukocyte Esterase Urine WBC (Auto) Urine RBC (Auto) 08/02/18 08/02/18 12:15 13:34 Troponin I Cancelled < 0.012 Impressions: Chest X-Ray 08/02/18 11:48 IMPRESSION: COPD. Scarring in the lung apices. No acute findings. Abdomen/Pelvis CT 08/02/18 12:34 IMPRESSION: Likely fecal impaction. Considerable air in the colon. No evidence of bowel obstruction. Thickening of the left adrenal gland. Assessment and Plan - Diagnosis (1) Abdominal pain Qualifiers: Abdominal location: lower abdomen, unspecified Qualified Code(s): R10.30 - Lower abdominal pain, unspecified Is this a current diagnosis for this admission?: Yes Plan: The patient has several reasons for abdominal pain. Diagnostic imaging revealed marked feces in the rectosigmoid area. This is likely contributing to the ileus and distention. He also has a positive urinalysis likely indicating acute cystitis. We will treat symptomatically. (2) Acute cystitis Qualifiers: Hematuria presence: with hematuria Qualified Code(s): N30.01 - Acute cystitis with hematuria Is this a current diagnosis for this admission?: Yes Plan: The patient has greater than 120 red blood cells per high-power field by urinalysis. He is having microscopic hematuria from the cystitis. He has been started on ceftriaxone 1 g daily. Urine culture and blood cultures have been obtained. (3) Ileus Is this a current diagnosis for this admission?: Yes Plan: Distended loops of bowel noted on imaging. The patient does have tenderness to palpation with decreased bowel sounds. Decreased transit with possible fecal impaction and an acute infection are both contributing to the ileus. (4) Abdominal distention Is this a current diagnosis for this admission?: Yes Plan: Secondary to the ileus. A trial of several doses of metoclopramide have been instituted. Multiple medications for constipation will be administered. (5) Constipation Qualifiers: Constipation type: slow transit constipation Qualified Code(s): K59.01 - Slow transit constipation Is this a current diagnosis for this admission?: Yes Plan: A Fleet enema was administered in the emergency department. I have also ordered a mineral oil enema for tomorrow morning. Dulcolax is available as well. I will start MiraLAX daily to try and keep his bowels regular. (6) Tachycardia Is this a current diagnosis for this admission?: Yes Plan: Secondary to the cystitis. He will receive IV fluids and he is already on metoprolol. This should both resolve the tachycardia. (7) COPD exacerbation Is this a current diagnosis for this admission?: Yes Plan: Nebulizer treatments with oxygen supplementation. (8) Aphasia Is this a current diagnosis for this admission?: Yes Plan: The patient is able to nod his head to answer yes and no questions. (9) Dysphagia Qualifiers: Dysphagia type: unspecified Qualified Code(s): R13.10 - Dysphagia, unsp ecified Is this a current diagnosis for this admission?: Yes Plan: The patient will receive nutrition and medications through his PEG tube. He has at high risk for aspiration and precautions will be put in place. (10) Coronary artery disease Qualifiers: Coronary Disease-Associated Artery/Lesion type: [place] artery [place] vs. transplanted heart: [place] heart Associated angina: without angina Qualified Code(s): I25.10 - Atherosclerotic heart disease of [place] coronary artery without angina pectoris Is this a current diagnosis for this admission?: Yes Plan: We will continue the patient's metoprolol. With his underlying comorbidities the addition of statins will be of limited benefit and we will hold off on adding any more medicines to his regimen. (11) Chronic anticoagulation Is this a current diagnosis for this admission?: Yes Plan: Secondary to multiple strokes. Continue current regimen. Monitor for evidence of bleeding. - Time Time Spent with patient: 75 minutes Time Spent with patient: 35 or more minutes Medications reviewed and adjusted accordingly: Yes Anticipated discharge: Home - The plan is for the patient to return to home and resume his home health services. - Inpatient Certification Based on my medical assessment, after consideration of the patient's comorbidities, presenting symptoms, or acuity I expect that the services needed warrant INPATIENT care.: Yes I certify that my determination is in accordance with my understanding of Medicare's requirements for reasonable and necessary INPATIENT services [42 CFR 412.3e].: Yes Medical Necessity: Need For IV Fluids, Need for Nebulizer Therapy and Monitoring of Response, Need for Pain Control, Need for IV Antibiotics, Risk of Complication if Not Cared For in Hospital Post Hospital Care: D/C Consumer Marketing Manager Documentation
[2018-08-03] MEDS ORDERED: MINERAL OIL ENEMA 133 ML PR ONE (08:00)
[2018-08-03] MEDS: BUDESONIDE NEB 0.5 MG/2 ML AMPUL NEB SCH ×2 (08:47→19:34)
[2018-08-03] MEDS: IPRATROPIUM/ALBUTEROL 0.5-2.5 MG/3 ML AMPUL NEB SCH ×3 (08:47→23:50)
[2018-08-03 08:59] LABS: ANION GAP 5 (5-19); BLOOD UREA NITROGEN 20 mg/dL (7-20); CALCIUM 9.1 mg/dL (8.4-10.2); CARBON DIOXIDE 24 mmol/L (22-30); CHLORIDE 113 mmol/L (98-107); GLUCOSE 124 mg/dL (75-110); SODIUM 141.7 mmol/L (137-145)
--- NOTE | 2018-08-03 08:59 | PDOC PROGRESS REPORT ---
Subjective Progress Note for:: 08/03/18 Subjective:: 72 year old male with an unfortunate and complex medical history. He presents with his sister. The patient has a history of 2 strokes and a myocardial infarction. This has left him with aphasia and dysphagia. He has a PEG tube and suprapubic catheter. The patient's sister reports that he began having a cough several days ago. His face would get flushed. He would get diaphoretic. He was having discomfort in his abdomen and the home health care nurse changed his suprapubic catheter 48 hours ago. This was quite painful for him. His sister reports that he was getting more short of breath and coughing more. There was no sputum production. She did give him a nebulizer treatment in addition to his inhaler therapy and this did not help. She then noted that his abdomen was becoming distended and more painful. At this point he was brought to the emergency room. The patient has a positive urinalysis highly suspicious for infection and was found to have distended loops of bowel by diagnostic imaging. He was referred to hospital service for admission. [id number]-old male with multiple medical problems admitted for fecal impaction. Patient states he has a good bowel movement last night. On examination believe is soft nontender. We are going to restart his PEG feedings today. Patient has also has suprapubic catheter. He is getting IV antibiotic therapy for UTI and blood culture sent and urine cultures are pending. Patient is a phasic. Bedbound. Understand the verbal commands and responds appropriately by nodding his head. Reason For Visit: ILEUS AND POSSIBLE CYSTITIS APHASIA, DYSPHAGIA, Physical Exam Vital Signs: Temp Pulse Resp BP Pulse Ox 98.7 F 61 16 138/69 H 100 08/03/18 08:24 08/03/18 08:24 08/03/18 08:24 08/03/18 08:24 08/03/18 08:24 Intake & Output 08/02/18 08/03/18 08/04/18 06:59 06:59 06:59 Intake Total 2960 Output Total 400 Balance 2560 Weight 58 kg General appearance: PRESENT: thin Head exam: PRESENT: atraumatic Eye exam: PRESENT: PERRLA Mouth exam: PRESENT: moist, tongue midline Neck exam: ABSENT: carotid bruit, JVD, lymphadenopathy, thyromegaly Respiratory exam: PRESENT: clear to auscultation eric. ABSENT: rales, rhonchi, wheezes Cardiovascular exam: PRESENT: RRR, systolic murmur GI/Abdominal exam: PRESENT: normal bowel sounds, soft. ABSENT: distended, guarding, mass, organolmegaly, rebound, tenderness Gentrourinary exam: PRESENT: indwelling catheter Extremities exam: PRESENT: other - Upper extremity with contractions lower extremity contractions patient bedbound. Neurological exam: PRESENT: alert, awake, oriented to person, oriented to place, oriented to time, oriented to situation, other - Patient is bedbound. Psychiatric exam: PRESENT: appropriate affect, normal mood. ABSENT: homicidal ideation, suicidal ideation Results Laboratory Results: 08/03/18 05:25 08/02/18 08/02/18 08/02/18 12:15 12:15 12:15 WBC 8.0 RBC 4.72 Hgb 13.7 Hct 40.9 MCV 87 MCH 28.9 MCHC 33.3 RDW 14.9 H Plt Count 221 Seg Neutrophils % 60.0 Lymphocytes % 26.9 Monocytes % 9.0 Eosinophils % 3.7 Basophils % 0.4 Absolute Neutrophils 4.8 Absolute Lymphocytes 2.2 Absolute Monocytes 0.7 Absolute Eosinophils 0.3 Absolute Basophils 0.0 VBG pH VBG pCO2 VBG HCO3 VBG Base Excess Sodium Cancelled Potassium Cancelled Chloride Cancelled Carbon Dioxide Cancelled Anion Gap Cancelled BUN Cancelled Creatinine Cancelled Est GFR ( Amer) Cancelled Est GFR (Non-Af Amer) Cancelled Glucose Cancelled Lactic Acid Calcium Cancelled Magnesium Total Bilirubin Cancelled AST Cancelled ALT Cancelled Alkaline Phosphatase Cancelled Total Protein Cancelled Albumin Cancelled Urine Color YELLOW Urine Appearance CLOUDY Urine pH 6.0 Ur Specific [place] 1.024 Urine Protein >=500 H Urine Glucose (UA) NEGATIVE Urine Ketones NEGATIVE Urine Blood NEGATIVE Urine Nitrite NEGATIVE Ur Leukocyte Esterase LARGE H Urine WBC (Auto) >182 Urine RBC (Auto) 120 08/02/18 08/02/18 08/02/18 12:15 12:15 12:15 WBC RBC Hgb Hct MCV MCH MCHC RDW Plt Count Seg Neutrophils % Lymphocytes % Monocytes % Eosinophils % Basophils % Absolute Neutrophils Absolute Lymphocytes Absolute Monocytes Absolute Eosinophils Absolute Basophils VBG pH 7.33 VBG pCO2 54.1 VBG HCO3 27.9 VBG Base Excess 0.7 Sodium Potassium Chloride Carbon Dioxide Anion Gap BUN Creatinine Est GFR ( Amer) Est GFR (Non-Af Amer) Glucose Lactic Acid 1.8 Calcium Magnesium Total Bilirubin AST ALT Alkaline Phosphatase Total Protein Albumin Urine Color Cancelled Urine Appearance Cancelled Urine pH Cancelled Ur Specific [place] Cancelled Urine Protein Cancelled Urine Glucose (UA) Cancelled Urine Ketones Cancelled Urine Blood Cancelled Urine Nitrite Cancelled Ur Leukocyte Esterase Cancelled Urine WBC (Auto) Cancelled Urine RBC (Auto) Cancelled 08/02/18 08/03/18 08/03/18 13:34 05:25 05:25 WBC Cancelled RBC Cancelled Hgb Cancelled Hct Cancelled MCV Cancelled MCH Cancelled MCHC Cancelled RDW Cancelled Plt Count Cancelled Seg Neutrophils % Cancelled Lymphocytes % Cancelled Monocytes % Cancelled Eosinophils % Cancelled Basophils % Cancelled Absolute Neutrophils Cancelled Absolute Lymphocytes Cancelled Absolute Monocytes Cancelled Absolute Eosinophils Cancelled Absolute Basophils Cancelled VBG pH VBG pCO2 VBG HCO3 VBG Base Excess Sodium 144.2 Cancelled Potassium 3.8 Cancelled Chloride 112 H Cancelled Carbon Dioxide 27 Cancelled Anion Gap 5 Cancelled BUN 23 H Cancelled Creatinine 0.87 Cancelled Est GFR ( Amer) > 60 Cancelled Est GFR (Non-Af Amer) > 60 Cancelled Glucose 134 H Cancelled Lactic Acid Calcium 9.7 Cancelled Magnesium Cancelled Total Bilirubin 0.3 AST 28 ALT 35 Alkaline Phosphatase 70 Total Protein 7.4 Albumin 3.7 Urine Color Urine Appearance Urine pH Ur Specific [place] Urine Protein Urine Glucose (UA) Urine Ketones Urine Blood Urine Nitrite Ur Leukocyte Esterase Urine WBC (Auto) Urine RBC (Auto) 08/02/18 08/02/18 12:15 13:34 Troponin I Cancelled < 0.012 Impressions: Chest X-Ray 08/02/18 11:48 IMPRESSION: COPD. Scarring in the lung apices. No acute findings. Abdomen/Pelvis CT 08/02/18 12:34 IMPRESSION: Likely fecal impaction. Considerable air in the colon. No evidence of bowel obstruction. Thickening of the left adrenal gland. Assessment and Plan - Diagnosis (1) Abdominal pain Qualifiers: Abdominal location: lower abdomen, unspecified Qualified Code(s): R10.30 - Lower abdominal pain, unspecified Is this a current diagnosis for this admission?: Yes Plan: The patient has several reasons for abdominal pain. Diagnostic imaging revealed marked feces in the rectosigmoid area. This is likely contributing to the ileus and distention. He also has a positive urinalysis likely indicating acute cystitis. We will treat symptomatically. 08/03/2018-patient was admitted for abdominal pain most likely secondary to fecal impaction. Patient had a good bowel movement last night. On examination this morning belly is flat nontender soft to touch bowel sounds are present. He has suprapubic catheter and PEG is in place. (2) Acute cystitis Qualifiers: Hematuria presence: with hematuria Qualified Code(s): N30.01 - Acute cystitis with hematuria Is this a current diagnosis for this admission?: Yes Plan: The patient has greater than 120 red blood cells per high-power field by urinalysis. He is having microscopic hematuria from the cystitis. He has been started on ceftriaxone 1 g daily. Urine culture and blood cultures have been obtained. 08/03/2018-blood cultures and urine cultures are pending. Patient getting IV Rocephin 1 g daily for UTI. Patient is afebrile. Plan is to continue the present management. (3) Ileus Is this a current diagnosis for this admission?: Yes Plan: Distended loops of bowel noted on imaging. The patient does have tenderness to palpation with decreased bowel sounds. Decreased transit with possible fecal impaction and an acute infection are both contributing to the ileus. 08/03/2018-patient admitted for eye ileus. And also have a fecal impaction. On examination this morning belly soft flat nontender. Patient had good bowel movement last night. Plan is to repeat the acute abdominal series today. (4) Abdominal distention Is this a current diagnosis for this admission?: Yes Plan: Secondary to the ileus. A trial of several doses of metoclopramide have been instituted. Multiple medications for constipation will be administered. 08/03/2018-abdominal distention due to fecal impaction is resolved. (5) Tachycardia Is this a current diagnosis for this admission?: Yes Plan: Secondary to the cystitis. He will receive IV fluids and he is already on metoprolol. This should both resolve the tachycardia. 08/03/2018-tachycardia may be secondary to physical deconditioning, abdominal pain. Heart rate today 76. Tachycardia is resolved. (6) COPD exacerbation Is this a current diagnosis for this admission?: Yes Plan: Nebulizer treatments with oxygen supplementation. 08/03/2018-patient has history of COPD on nebulizer treatment and oxygen supplementation. plan is to continue the same treatment. (7) Dysphagia Is this a current diagnosis for this admission?: No Plan: 08/03/2018-patient has history of dysphagia most likely secondary to multiple strokes. The PEG to be going to start him on PEG feeding. (8) Chronic anticoagulation Is this a current diagnosis for this admission?: Yes Plan: Secondary to multiple strokes. Continue current regimen. Monitor for evidence of bleeding. 08/03/2018-patient has history of multiple strokes. Patient let us know 15 mg via PEG tube. Plan is to continue the present management. - Time Time Spent with patient: 15-24 minutes Medications reviewed and adjusted accordingly: Yes Anticipated discharge: Home with Homehealth
[2018-08-03 09:00] LABS: ABSOLUTE LYMPHOCYTES (AUTO) 0.6 10^3/uL (0.5-4.7); ABSOLUTE MONOCYTES (AUTO) 0.5 10^3/uL (0.1-1.4); ABSOLUTE NEUT (AUTO) 7.3 10^3/uL (1.7-8.2); HEMATOCRIT 31.1 % (37.9-51.0); LYMPHOCYTES % (AUTO) 7.6 % (13-45); MEAN CORPUSCULAR HEMOGLOBIN 28.8 pg (27.0-33.4); MEAN CORPUSCULAR HGB CONC 33.1 g/dL (32.0-36.0); MEAN CORPUSCULAR VOLUME 87 fl (80-97); MONOCYTES % (AUTO) 5.5 % (3-13); PLATELET COUNT 190 10^3/uL (150-450); RED BLOOD COUNT 3.57 10^6/uL (4.35-5.55); RED CELL DISTRIBUTION WIDTH 14.6 % (11.5-14.0); SEGMENTED NEUTROPHILS % (AUTO) 86.9 % (42-78); TOTAL CELLS COUNTED % (AUTO) 100 %; WHITE BLOOD COUNT 8.4 10^3/uL (4.0-10.5)
[2018-08-03 09:08] LABS: HEMOGLOBIN 10.3 g/dL (13.5-17.0)
[2018-08-03 09:12] LABS: POTASSIUM 4.9 mmol/L (3.6-5.0)
[2018-08-03] MEDS ORDERED: ENOXAPARIN SODIUM INJ 40 MG/0.4 ML DISP.SYRIN SUBCUT SCH (10:00)
--- NOTE | 2018-08-03 10:42 | RADIOLOGY REPORT (SQ) ---
EXAM DESCRIPTION: ACUTE ABDOMEN SERIES COMPLETED DATE/TIME: 08/03/2018 10:31 am REASON FOR STUDY: ileus COMPARISON: None. NUMBER OF VIEWS: Three views. TECHNIQUE: Frontal chest, supine abdomen and upright/decubitus abdomen radiographic images acquired. LIMITATIONS: None. FINDINGS: CHEST: Lungs clear of infiltrates. FREE AIR: None. No abnormal gas collections. BOWEL GAS PATTERN: A large amount of air is present in both large and small bowel loops. CALCIFICATIONS: No suspicious calcifications. HARDWARE: None in the abdomen. SOFT TISSUES: No gross mass or suggestion of organomegaly. BONES: No acute fracture. No worrisome bone lesions. OTHER: No other significant finding. IMPRESSION: Ileus. TECHNICAL DOCUMENTATION: JOB ID: [id number] [employer]- All Rights Reserved Reading location - IP/workstation name: [email or web address]
[2018-08-03] MEDS ORDERED: CEFTRIAXONE 1 GM/D5W RTU 1 GM/50 ML RTUPB IV SCH (12:00)
[2018-08-03] MEDS: METOPROLOL TARTRATE 25 MG TABLET PEG SCH ×2 (12:56→22:38)
[2018-08-03] MEDS: ESCITALOPRAM OXALATE 10 MG TABLET PEG SCH (12:57)
[2018-08-03] MEDS: OLANZAPINE 5 MG TABLET PEG SCH (12:57)
[2018-08-03] MEDS: POLYETHYLENE GLYCOL 3350 POWDER 17 GM/1 PACKET PEG SCH (12:58)
[2018-08-03] MEDS: RIVAROXABAN 15 MG TABLET PEG SCH (12:58)
[2018-08-03] MEDS: CEFTRIAXONE SODIUM 1,000 MG in DEXTROSE 5%-WATER 50 ML IV SCH (12:59)
[2018-08-03] MEDS: MAGNESIUM CITRATE 296 ML BOTTLE PEG SCH (18:41)
[2018-08-03] MEDS: ALBUTEROL SULFATE 0.083% NEB 2.5 MG/3 ML AMPUL NEB PRN (19:34)
[2018-08-04 04:25] LABS: ABSOLUTE LYMPHOCYTES (AUTO) 0.7 10^3/uL (0.5-4.7); ABSOLUTE MONOCYTES (AUTO) 0.8 10^3/uL (0.1-1.4); ABSOLUTE NEUT (AUTO) 9.5 10^3/uL (1.7-8.2); HEMATOCRIT 33.6 % (37.9-51.0); HEMOGLOBIN 10.9 g/dL (13.5-17.0); LYMPHOCYTES % (AUTO) 6.6 % (13-45); MEAN CORPUSCULAR HEMOGLOBIN 28.2 pg (27.0-33.4); MEAN CORPUSCULAR HGB CONC 32.4 g/dL (32.0-36.0); MEAN CORPUSCULAR VOLUME 87 fl (80-97); MONOCYTES % (AUTO) 7.2 % (3-13); PLATELET COUNT 224 10^3/uL (150-450); RED BLOOD COUNT 3.86 10^6/uL (4.35-5.55); RED CELL DISTRIBUTION WIDTH 14.7 % (11.5-14.0); SEGMENTED NEUTROPHILS % (AUTO) 86.2 % (42-78); TOTAL CELLS COUNTED % (AUTO) 100 %
[2018-08-04 04:41] LABS: ALANINE AMINOTRANSFERASE 29 U/L (21-72); ALBUMIN 3.1 g/dL (3.5-5.0); ALKALINE PHOSPHATASE 49 U/L (38-126); ANION GAP 5 (5-19); ASPARTATE AMINO TRANSFERASE 27 U/L (17-59); BILIRUBIN,DIRECT 0.2 mg/dL (0.0-0.4); BILIRUBIN,TOTAL 0.2 mg/dL (0.2-1.3); BLOOD UREA NITROGEN 21 mg/dL (7-20); CALCIUM 9.9 mg/dL (8.4-10.2); CARBON DIOXIDE 23 mmol/L (22-30); CHLORIDE 116 mmol/L (98-107); GLUCOSE 115 mg/dL (75-110); POTASSIUM 4.4 mmol/L (3.6-5.0); SODIUM 143.7 mmol/L (137-145); TOTAL PROTEIN 6.2 g/dL (6.3-8.2)
[2018-08-04] MEDS ORDERED: NORMAL SALINE 1000 ML 1,000 ML IV PRN (08:14)
[2018-08-04] MEDS: BUDESONIDE NEB 0.5 MG/2 ML AMPUL NEB SCH ×2 (08:19→19:54)
[2018-08-04] MEDS: IPRATROPIUM/ALBUTEROL 0.5-2.5 MG/3 ML AMPUL NEB SCH ×3 (08:19→23:46)
[2018-08-04] MEDS: INSULIN REG, HUMAN 100 UNIT/ML 3 ML VIAL (PYX) SUBCUT SCH ×3 (08:20→17:34)
[2018-08-04] MEDS: METOCLOPRAMIDE HCL INJ/PF 10 MG/2 ML SDV IV SCH ×4 (08:21→16:34)
--- NOTE | 2018-08-04 08:24 | PDOC PROGRESS REPORT ---
Subjective Progress Note for:: 08/04/18 Subjective:: 72 year old male with an unfortunate and complex medical history. He presents with his sister. The patient has a history of 2 strokes and a myocardial infarction. This has left him with aphasia and dysphagia. He has a PEG tube and suprapubic catheter. The patient's sister reports that he began having a cough several days ago. His face would get flushed. He would get diaphoretic. He was having discomfort in his abdomen and the home health care nurse changed his suprapubic catheter 48 hours ago. This was quite painful for him. His sister reports that he was getting more short of breath and coughing more. There was no sputum production. She did give him a nebulizer treatment in addition to his inhaler therapy and this did not help. She then noted that his abdomen was becoming distended and more painful. At this point he was brought to the emergency room. The patient has a positive urinalysis highly suspicious for infection and was found to have distended loops of bowel by diagnostic imaging. He was referred to hospital service for admission. [id number]-old male with multiple medical problems admitted for fecal impaction. Patient states he has a good bowel movement last night. On examination believe is soft nontender. We are going to restart his PEG feedings today. Patient has also has suprapubic catheter. He is getting IV antibiotic therapy for UTI and blood culture sent and urine cultures are pending. Patient is a phasic. Bedbound. Understand the verbal commands and responds appropriately by nodding his head. 08/04/2018 patient comfortable in the bed a phasic. But is following verbal commands. I asked him to help pain in the abdomen he said yes. On examination abdomen was distended patient so signs of discomfort on gentle palpation. Bowel sounds are sluggish. Spoke to Dr. Hunt for consult. To do the CT abdomen pelvis without contrast today. Tube feedings are on hold. to Start an IV fluids 50 cc/h. Reason For Visit: ILEUS AND POSSIBLE CYSTITIS APHASIA, DYSPHAGIA, Physical Exam Vital Signs: Temp Pulse Resp BP Pulse Ox 97.2 F 88 20 148/80 H 100 08/04/18 08:00 08/04/18 08:00 08/04/18 08:00 08/04/18 08:00 08/04/18 08:00 Intake & Output 08/03/18 08/04/18 08/05/18 06:59 06:59 06:59 Intake Total 2960 Output Total 400 1000 Balance 2560 -1000 Weight 58 kg 57.6 kg General appearance: PRESENT: mild distress, thin Head exam: PRESENT: atraumatic Eye exam: PRESENT: PERRLA Mouth exam: PRESENT: moist, tongue midline Neck exam: ABSENT: carotid bruit, JVD, lymphadenopathy, thyromegaly Respiratory exam: PRESENT: decreased breath sounds Cardiovascular exam: PRESENT: tachycardia GI/Abdominal exam: PRESENT: other - Abdomen was distended patient so sites of discomfort on gentle palpation. Bowel sounds are sluggish. Feeding tube in place. Rectal exam: PRESENT: deferred Gentrourinary exam: PRESENT: indwelling catheter Neurological exam: PRESENT: alert, awake, aphasic, other - Patient is bedbound with weakness of the lower extremities. Contractures of the lower extremities present. He has a PEG tube and suprapubic catheter. Psychiatric exam: PRESENT: anxious Results Laboratory Results: 08/04/18 03:22 08/04/18 03:22 08/03/18 08/03/18 08/03/18 05:25 08:11 08:11 WBC Cancelled 8.4 RBC Cancelled 3.57 L Hgb Cancelled 10.3 L D Hct Cancelled 31.1 L MCV Cancelled 87 MCH Cancelled 28.8 MCHC Cancelled 33.1 RDW Cancelled 14.6 H Plt Count Cancelled 190 Seg Neutrophils % Cancelled 86.9 H Lymphocytes % Cancelled 7.6 L Monocytes % Cancelled 5.5 Eosinophils % Cancelled 0.0 Basophils % Cancelled 0.0 Absolute Neutrophils Cancelled 7.3 Absolute Lymphocytes Cancelled 0.6 Absolute Monocytes Cancelled 0.5 Absolute Eosinophils Cancelled 0.0 Absolute Basophils Cancelled 0.0 Sodium 141.7 Potassium 4.9 D Chloride 113 H Carbon Dioxide 24 Anion Gap 5 BUN 20 Creatinine 0.80 Est GFR ( Amer) > 60 Est GFR (Non-Af Amer) > 60 Glucose 124 H Calcium 9.1 Magnesium 1.8 Total Bilirubin AST ALT Alkaline Phosphatase Total Protein Albumin 08/04/18 08/04/18 03:22 03:22 WBC 11.0 H RBC 3.86 L Hgb 10.9 L Hct 33.6 L MCV 87 MCH 28.2 MCHC 32.4 RDW 14.7 H Plt Count 224 Seg Neutrophils % 86.2 H Lymphocytes % 6.6 L Monocytes % 7.2 Eosinophils % 0.0 Basophils % 0.0 Absolute Neutrophils 9.5 H Absolute Lymphocytes 0.7 Absolute Monocytes 0.8 Absolute Eosinophils 0.0 Absolute Basophils 0.0 Sodium 143.7 Potassium 4.4 Chloride 116 H Carbon Dioxide 23 Anion Gap 5 BUN 21 H Creatinine 0.86 Est GFR ( Amer) > 60 Est GFR (Non-Af Amer) > 60 Glucose 115 H Calcium 9.9 Magnesium 2.2 Total Bilirubin 0.2 AST 27 ALT 29 Alkaline Phosphatase 49 Total Protein 6.2 L Albumin 3.1 L 08/02/18 08/02/18 12:15 13:34 Troponin I Cancelled < 0.012 Impressions: Chest X-Ray 08/02/18 11:48 IMPRESSION: COPD. Scarring in the lung apices. No acute findings. Abdomen/Pelvis CT 08/02/18 12:34 IMPRESSION: Likely fecal impaction. Considerable air in the colon. No evidence of bowel obstruction. Thickening of the left adrenal gland. Acute Abdomen Series 08/03/18 00:00 IMPRESSION: Ileus. Assessment and Plan - Diagnosis (1) Abdominal pain Qualifiers: Abdominal location: lower abdomen, unspecified Qualified Code(s): R10.30 - Lower abdominal pain, unspecified Is this a current diagnosis for this admission?: Yes Plan: The patient has several reasons for abdominal pain. Diagnostic imaging revealed marked feces in the rectosigmoid area. This is likely contributing to the ileus and distention. He also has a positive urinalysis likely indicating acute cystitis. We will treat symptomatically. 08/03/2018-patient was admitted for abdominal pain most likely secondary to fecal impaction. Patient had a good bowel movement last night. On examination this morning belly is flat nontender soft to touch bowel sounds are present. He has suprapubic catheter and PEG is in place. 08/04/2018-patient was admitted for abdominal pain most likely secondary to fecal impaction. But patient states he has a bowel movement but nobody noticed it. Abdominal was much distended on examination patient is in discomfort. Plan to discontinue PEG feeding surgical consult was requested plan to do the CT abdominal pelvis without contrast today. Yesterday's acute abdominal series indicate ileus. (2) Acute cystitis Qualifiers: Hematuria presence: with hematuria Qualified Code(s): N30.01 - Acute cystitis with hematuria Is this a current diagnosis for this admission?: Yes Plan: The patient has greater than 120 red blood cells per high-power field by urinalysis. He is having microscopic hematuria from the cystitis. He has been started on ceftriaxone 1 g daily. Urine culture and blood cultures have been obtained. 08/03/2018-blood cultures and urine cultures are pending. Patient getting IV Rocephin 1 g daily for UTI. Patient is afebrile. Plan is to continue the present management. 08/04/2018-urine cultures came back positive for E. coli. On Rocephin 1 g IV daily. Patient is afebrile. Temperature 98.1. Plan is to continue the antibiotic therapy. (3) Ileus Is this a current diagnosis for this admission?: Yes Plan: Distended loops of bowel noted on imaging. The patient does have tenderness to palpation with decreased bowel sounds. Decreased transit with possible fecal impaction and an acute infection are both contributing to the ileus. 08/03/2018-patient admitted for ileus. And also have a fecal impaction. On examination this morning belly soft flat nontender. Patient had good bowel mo vement last night. Plan is to repeat the acute abdominal series today. 08/[id number]-[id number]-old male with multiple stroke aphasic bedbound with PEG and suprapubic catheter admitted for ileus. Repeat acute abdominal series shows persistent of the ileus. Plan to do the surgical consult today. To stop the PEG feedings , start on IV fluids normal saline at 50 cc/h and to do CT abdominal pelvis without contrast. (4) Abdominal distention Is this a current diagnosis for this admission?: Yes Plan: Secondary to the ileus. A trial of several doses of metoclopramide have been instituted. Multiple medications for constipation will be administered. 08/03/2018-abdominal distention due to fecal impaction is resolved. 08/04/2018-abdominal was very much distended today. Plan to do the CT abdomen pelvis without contrast today. (5) Tachycardia Is this a current diagnosis for this admission?: Yes Plan: Secondary to the cystitis. He will receive IV fluids and he is already on metoprolol. This should both resolve the tachycardia. 08/03/2018-tachycardia may be secondary to physical deconditioning, abdominal pain. Heart rate today 76. Tachycardia is resolved. 08/04/2018-patient heart rate is 76. Tachycardia has resolved. (6) COPD exacerbation Is this a current diagnosis for this admission?: Yes Plan: Nebulizer treatments with oxygen supplementation. 08/03/2018-patient has history of COPD on nebulizer treatment and oxygen supplementation. plan is to continue the same treatment. 08/04/2018-patient has history of COPD presently on oxygen via nasal cannula pulse ox is 95% on 2 L. Continue to do the nebulizer treatments. (7) Dysphagia Is this a current diagnosis for this admission?: No Plan: 08/03/2018-patient has history of dysphagia most likely secondary to multiple strokes. to start him on PEG feeding. 08/04/2018-patient has a history of dysphagia secondary to multiple strokes. To hold the PEG feeding today because of the persistence of ileus. (8) Chronic anticoagulation Is this a current diagnosis for this admission?: Yes Plan: Secondary to multiple strokes. Continue current regimen. Monitor for evidence of bleeding. 08/03/2018-patient has history of multiple strokes. Patient is on xareltto 15 mg via PEG tube. Plan is to continue the present management. 08/04/2018-patient has history of multiple strokes on Xarelto 15 mg daily. Plan is to continue the present management. - Time Time Spent with patient: 25-34 minutes Medications reviewed and adjusted accordingly: Yes Anticipated discharge: Home
[2018-08-04] MEDS: OLANZAPINE 5 MG TABLET PEG SCH (11:50)
[2018-08-04] MEDS: POLYETHYLENE GLYCOL 3350 POWDER 17 GM/1 PACKET PEG SCH (11:50)
[2018-08-04] MEDS: MAGNESIUM CITRATE 296 ML BOTTLE PEG SCH (11:50)
[2018-08-04] MEDS: ESCITALOPRAM OXALATE 10 MG TABLET PEG SCH (11:50)
[2018-08-04] MEDS: RIVAROXABAN 15 MG TABLET PEG SCH (11:51)
[2018-08-04] MEDS: METOPROLOL TARTRATE 25 MG TABLET PEG SCH ×2 (11:51→22:29)
--- NOTE | 2018-08-04 12:10 | RADIOLOGY REPORT (SQ) ---
EXAM DESCRIPTION: CT ABD/PELVIS NO ORAL OR IV COMPLETED DATE/TIME: 08/04/2018 10:15 am REASON FOR STUDY: ileus COMPARISON: CT abdomen pelvis 08/02/2018, 04/09/2018, 08/31/2017 TECHNIQUE: CT scan of the abdomen and pelvis performed without intravenous or oral contrast. Images reviewed with lung, soft tissue, and bone windows. Reconstructed coronal and sagittal MPR images revi ewed. All images stored on PACS. All CT scanners at this facility use dose modulation, iterative reconstruction, and/or weight based d osing when appropriate to reduce radiation dose to as low as reasonably achievable (ALARA). [facility]: Dose Right [facility]: CareDose [facility]: Dose Right [facility]: Teradose 4D [facility]: Smart Ed[employer]ics RADIATION DOSE: CT Rad equipment meets quality standard of care and radiation dose reduction techniq ues were employed. CTDIvol: 4.9 mGy. DLP: 265 mGy-cm.mGy. LIMITATIONS: Motion artifact throughout the scan FINDINGS: There is a gastrostomy tube with the tip in the body of the stomach. Diffuse gaseous distention of stomach and small bowel out of proportion to colon. Note definite gayle sition point. Findings likely reflect an ileus. This is similar compared to prior studies. Moderate stool in the rectum and sigmoid colon. No gross free intraperitoneal air or free fluid. LOWER CHEST: Minimal left basilar atelectasis NON-CONTRASTED LIVER, SPLEEN, ADRENALS: Evaluation limited by lack of IV contrast. No identified sign ificant masses. PANCREAS: No masses. No peripancreatic inflammatory changes. GALLBLADDER: No identified stones by CT criteria. No inflammatory changes to suggest cholecystitis. RIGHT KIDNEY AND URETER: No suspicious masses. Assessment limited by lack of IV contrast. No signif icant calcifications. No hydronephrosis or hydroureter. LEFT KIDNEY AND URETER: No suspicious masses. Assessment limited by lack of IV contrast. No signifi cant calcifications. No hydronephrosis or hydroureter. AORTA AND RETROPERITONEUM: No aneurysm. No retroperitoneal masses or adenopathy. BOWEL AND PERITONEAL CAVITY: As above APPENDIX: Not well seen PELVIS, BLADDER, AND ABDOMINAL WALL:No abnormal masses. No free fluid. Bladder normal. BONES: No significant findings. OTHER: No other significant finding. IMPRESSION: Persistent ileus COMMENT: Quality ID # [id number]: Final reports with documentation of one or more dose reduction techniques (e.g., Automated exposure control, adjustment of the mA and/or kV according to patient size, use of iterative reconstruction technique) TECHNICAL DOCUMENTATION: JOB ID: [id number] [employer]- All Rights Reserved Reading location - IP/workstation name: [email or web address]
[2018-08-04] MEDS: CEFTRIAXONE SODIUM 1,000 MG in DEXTROSE 5%-WATER 50 ML IV SCH (12:34)
[2018-08-04] MEDS: ALBUTEROL SULFATE 0.083% NEB 2.5 MG/3 ML AMPUL NEB PRN ×2 (12:38→19:54)
[2018-08-04] MEDS ORDERED: ACETAMINOPHEN SOLN 325 MG/10.15 ML UDCUP PEG PRN (13:38)
[2018-08-04] MEDS ORDERED: MINERAL OIL ENEMA 133 ML PR ONE (15:15)
[2018-08-04] MEDS ORDERED: GLYCERIN 99.5% (ANHYDROUS) 177 ML PR ONE (16:00)
[2018-08-04] MEDS: DEXTROSE 50%-WATER 25 GM/50 ML DISP.SYRIN IV PRN (17:29)
[2018-08-04] MEDS: DEXTROSE 5%-NORMAL SALINE 1,000 ML IV PRN (20:17)
--- NOTE | 2018-08-04 21:09 | PDOC CONSULTATION ---
Consultation Consult Date: 08/04/18 Consult reason:: Abdominal distention, possible ileus History of Present Illness Admission Date/PCP: 08/02/18 16:08 FIDEL HANDY DO Patient complains of: Abdominal distention and pain History of Present Illness: DALY PORTILLO SR is a 73 year old male seen in consultation at the request of the hospitalist service. Patient was admitted for a urinary tract infection. He underwent a CT scan showing dilated loops of small and large bowel consistent with ileus. The patient's abdomen has continued to increase in girth over the last 48 hours. The patient currently reports feeling distended and uncomfortable, but denies overt pain. The patient has had several strokes and does not enunciate well, but he is able to communicate with yes or no answers. Patient has not had a bowel movement in several days. He denies nausea, vomiting, chest pain, shortness of breath, headaches, fatigue. Past Medical History Cardiac Medical History: Reports: Congestive Heart Failure, Myocardial Infarction, Hypertension Pulmonary Medical History: Reports: Chronic Obstructive Pulmonary Disease (COPD), Pneumonia EENT Medical History: Denies: Cataracts, Ears, Nose, Throat Neurological Medical History: Denies: Seizures Endocrine Medical History: Reports: Diabetes Mellitus Type 2 Denies: Diabetes Mellitus Type 1, Hyperthyroidism Renal/ Medical History: Denies: Chronic Kidney Disease, End Stage Renal Disease, Nephrolithiasis Malignancy Medical History: Reports: None GI Medical History: Reports: Gastroesophageal Reflux Disease Denies: Cirrhosis, Hepatitis Musculoskeltal Medical History: Denies: Arthritis, Gout Skin Medical History: Denies: Eczema, Psoriasis Psychiatric Medical History: Reports: Depression, Schizoaffective Disorder Traumatic Medical History: Reports: None Hematology: Denies: Anemia, Bleeding Tendencies Infectious Medical History: Reports: None Past Surgical History Past Surgical History: Reports: Orthopedic Surgery - Left wrist, Other - PEG tube placement, ? previous TURP, suprapubic catheter Social History Lives with: Family - He is and lives with his sister Smoking Status: Never Smoker Frequency of Alcohol Use: None Hx Recreational Drug Use: No Drugs: None Hx Prescription Drug Abuse: No - Advance Directive Resuscitation Status: Do Not Resuscitate Family History Family History: Reviewed & Not Pertinent, CAD, COPD, Hypertension, Malignancy, Other - Renal disease Parental Family History Reviewed: Yes Children Family History Reviewed: Yes Sibling(s) Family History Reviewed.: Yes Medication/Allergy Home Medications: Albuterol Sulfate [Ventolin Hfa 8 gm Mdi (1 Mdi/ER Disp)] 2 puff IH Q4HP PRN 08/02/18 Benzonatate [Tessalon Perle 100 mg Capsule] 100 mg PEG Q8HP PRN 08/02/18 Budesonide [Pulmicort] 5 ml NEB BID 08/02/18 Escitalopram Oxalate [Lexapro 10 mg Tablet] 10 mg PEG DAILY 08/02/18 Metoprolol Tartrate [Lopressor 25 mg Tablet] 25 mg PEG Q12 08/02/18 Nystatin [Mycostatin 500,000 Unit/5 ml Susp Udcup] 5 ml PO TID 08/02/18 Olanzapine [Zyprexa 5 mg Tablet] 5 mg PEG DAILY 08/02/18 Rivaroxaban [Xarelto 15 mg Tablet] 15 mg PEG DAILY 08/02/18 Allergies/Adverse Reactions: levofloxacin Adverse Reaction (Verified 12/13/17 08:41) Hives Review of Systems Constitutional: ABSENT: anorexia, chills, fatigue Eyes: ABSENT: visual disturbances Ears: ABSENT: hearing changes Nose, Mouth, and Throat: ABSENT: sore throat Cardiovascular: ABSENT: chest pain Respiratory: ABSENT: cough Gastrointestinal: PRESENT: abdominal pain, bloating, constipation Genitourinary: PRESENT: other - Suprapubic catheter in place Musculoskeletal: ABSENT: back pain Integumentary: ABSENT: pruritus, rash Neurological: ABSENT: confusion, convulsions, dizziness Psychiatric: ABSENT: anxiety, depression Endocrine: ABSENT: cold intolerance, heat intolerance Hematologic/Lymphatic: ABSENT: easy bleeding, easy bruising Physical Exam Vital Signs: Temp Pulse Resp BP Pulse Ox 98.1 F 118 H 22 H 146/83 H 92 08/04/18 12:00 08/04/18 12:38 08/04/18 12:38 08/04/18 12:00 08/04/18 12:38 Intake & Output 08/03/18 08/04/18 08/05/18 06:59 06:59 06:59 Intake Total 2960 50 270 Output Total 400 1000 Balance 2560 -950 270 Weight 58 kg 57.6 kg General appearance: PRESENT: no acute distress, cooperative Head exam: PRESENT: atraumatic, normocephalic Eye exam: ABSENT: scleral icterus Mouth exam: PRESENT: neck supple Teeth exam: PRESENT: poor dentation Neck exam: ABSENT: meningismus, tenderness, thyromegaly, tracheal deviation Respiratory exam: PRESENT: chest wall tenderness, unlabored. ABSENT: tachypnea, wheezes Cardiovascular exam: PRESENT: RRR Pulses: PRESENT: normal radial pulses GI/Abdominal exam: PRESENT: distended, soft. ABSENT: firm, guarding, hernia, tenderness Extremities exam: PRESENT: clubbing Musculoskeletal exam: ABSENT: ambulatory Neurological exam: PRESENT: alert, awake Psychiatric exam: ABSENT: agitated, anxious Skin exam: ABSENT: cyanosis, erythema, jaundice Results Laboratory Results: 08/04/18 03:22 08/04/18 03:22 08/04/18 08/04/18 03:22 03:22 WBC 11.0 H RBC 3.86 L Hgb 10.9 L Hct 33.6 L MCV 87 MCH 28.2 MCHC 32.4 RDW 14.7 H Plt Count 224 Seg Neutrophils % 86.2 H Lymphocytes % 6.6 L Monocytes % 7.2 Eosinophils % 0.0 Basophils % 0.0 Absolute Neutrophils 9.5 H Absolute Lymphocytes 0.7 Absolute Monocytes 0.8 Absolute Eosinophils 0.0 Absolute Basophils 0.0 Sodium 143.7 Potassium 4.4 Chloride 116 H Carbon Dioxide 23 Anion Gap 5 BUN 21 H Creatinine 0.86 Est GFR ( Amer) > 60 Est GFR (Non-Af Amer) > 60 Glucose 115 H Calcium 9.9 Magnesium 2.2 Total Bilirubin 0.2 AST 27 ALT 29 Alkaline Phosphatase 49 Total Protein 6.2 L Albumin 3.1 L 08/02/18 08/02/18 12:15 13:34 Troponin I Cancelled < 0.012 Impressions: Chest X-Ray 08/02/18 11:48 IMPRESSION: COPD. Scarring in the lung apices. No acute findings. Acute Abdomen Series 08/03/18 00:00 IMPRESSION: Ileus. Abdomen/Pelvis CT 08/04/18 00:00 IMPRESSION: Persistent ileus Assessment & Plan - Diagnosis (1) Constipation Qualifiers: Constipation type: slow transit constipation Qualified Code(s): K59.01 - Slow transit constipation Is this a current diagnosis for this admission?: Yes - Plan Summary Plan Summary: This is a 73-year-old male with abdominal distention and some discomfort. The patient has had 2 CT scans in the last 72 hours. I have reviewed both of them (films and reports). His most recent scan shows dilation of the colon with a large amount of stool in the rectosigmoid area. There is oral contrast (from his previous CT scan) within the rectosigmoid colon. There is no significant dilation of the small bowel. I believe the patient is suffering from chronic constipation. I will order an enema for the patient today in an effort to clear the stool from the rectosigmoid. Hopefully this will relieve his abdominal distention. Repeat x-rays tomorrow. Will follow.
[2018-08-05 04:23] LABS: HEMATOCRIT 34.8 % (37.9-51.0); HEMOGLOBIN 11.6 g/dL (13.5-17.0); MEAN CORPUSCULAR HEMOGLOBIN 28.5 pg (27.0-33.4); MEAN CORPUSCULAR HGB CONC 33.2 g/dL (32.0-36.0); MEAN CORPUSCULAR VOLUME 86 fl (80-97); PLATELET COUNT 222 10^3/uL (150-450); RED BLOOD COUNT 4.06 10^6/uL (4.35-5.55); RED CELL DISTRIBUTION WIDTH 14.9 % (11.5-14.0); WHITE BLOOD COUNT 4.9 10^3/uL (4.0-10.5)
[2018-08-05 04:40] LABS: ANION GAP 7 (5-19); BLOOD UREA NITROGEN 14 mg/dL (7-20); CALCIUM 9.4 mg/dL (8.4-10.2); CARBON DIOXIDE 26 mmol/L (22-30); CHLORIDE 110 mmol/L (98-107); GLUCOSE 90 mg/dL (75-110); POTASSIUM 4.4 mmol/L (3.6-5.0); SODIUM 142.9 mmol/L (137-145)
[2018-08-05 04:51] LABS: ABSOLUTE LYMPHOCYTES# (MANUAL) 1.2 10^3/uL (0.5-4.7); ABSOLUTE MONOCYTES # (MANUAL) 0.6 10^3/uL (0.1-1.4); ABSOLUTE NEUTROPHILS# (MANUAL) 3.1 10^3/uL (1.7-8.2); BAND NEUTROPHILS % (MANUAL) 1 % (3-5); BASOPHILS % (MANUAL) 0 % (0-2); EOSINOPHILS % (MANUAL) 0 % (0-6); LYMPHOCYTES % (MANUAL) 25 % (13-45); SEGMENTED NEUTROPHILS % (MAN) 62 % (42-78); TOTAL CELLS COUNTED 100
[2018-08-05 04:54] LABS: PLATELET CLUMPS PRESENT
[2018-08-05 04:58] LABS: ANISOCYTOSIS SLIGHT; HYPOCHROMASIA SLIGHT; OVALOCYTES SLIGHT; TOXIC GRANULATION SLIGHT; TOXIC VACUOLATION PRESENT
[2018-08-05 05:00] LABS: MONOCYTES % (MANUAL) 12 % (3-13)
[2018-08-05] MEDS: INSULIN REG, HUMAN 100 UNIT/ML 3 ML VIAL (PYX) SUBCUT SCH ×4 (05:03→21:27)
[2018-08-05] MEDS: BUDESONIDE NEB 0.5 MG/2 ML AMPUL NEB SCH ×2 (07:49→19:23)
[2018-08-05] MEDS: IPRATROPIUM/ALBUTEROL 0.5-2.5 MG/3 ML AMPUL NEB SCH ×2 (07:49→16:07)
--- NOTE | 2018-08-05 08:15 | RADIOLOGY REPORT (SQ) ---
EXAM DESCRIPTION: KUB/ABDOMEN (SINGLE VIEW) COMPLETED DATE/TIME: 08/05/2018 8:03 am REASON FOR STUDY: abdominal distention COMPARISON: None. NUMBER OF VIEWS: One view. TECHNIQUE: Supine radiographic image of the abdomen acquired. LIMITATIONS: None. FINDINGS: BOWEL GAS PATTERN: Marked gaseous distention of bowel. Possibly the stomach. There is an indwelling gastrostomy tube. Visualized: Oval left is only mildly dilated. Distal colon appears m ildly dilated. Rectal tube. CALCIFICATIONS: No suspicious calcifications. SOFT TISSUES: No gross mass or suggestion of organomegaly. HARDWARE: None in the abdomen. BONES: No acute fracture. No worrisome bone lesions. OTHER: No other significant finding. IMPRESSION: Marked dilatation of what is likely the stomach. The colon is mildly dilated. TECHNICAL DOCUMENTATION: JOB ID: [id number] [email or web address]- All Rights Reserved Reading location - IP/workstation name: [email or web address]
--- NOTE | 2018-08-05 09:14 | PDOC PROGRESS REPORT ---
Subjective Progress Note for:: 08/05/18 Subjective:: 72 year old male with an unfortunate and complex medical history. He presents with his sister. The patient has a history of 2 strokes and a myocardial infarction. This has left him with aphasia and dysphagia. He has a PEG tube and suprapubic catheter. The patient's sister reports that he began having a cough several days ago. His face would get flushed. He would get diaphoretic. He was having discomfort in his abdomen and the home health care nurse changed his suprapubic catheter 48 hours ago. This was quite painful for him. His sister reports that he was getting more short of breath and coughing more. There was no sputum production. She did give him a nebulizer treatment in addition to his inhaler therapy and this did not help. She then noted that his abdomen was becoming distended and more painful. At this point he was brought to the emergency room. The patient has a positive urinalysis highly suspicious for infection and was found to have distended loops of bowel by diagnostic imaging. He was referred to hospital service for admission. [id number]-old male with multiple medical problems admitted for fecal impaction. Patient states he has a good bowel movement last night. On examination believe is soft nontender. We are going to restart his PEG feedings today. Patient has also has suprapubic catheter. He is getting IV antibiotic therapy for UTI and blood culture sent and urine cultures are pending. Patient is a phasic. Bedbound. Understand the verbal commands and responds appropriately by nodding his head. 08/04/2018 patient comfortable in the bed aphasic. But is following verbal commands. I asked him to help pain in the abdomen he said yes. On examination abdomen was distended patient so signs of discomfort on gentle palpation. Bowel sounds are sluggish. Spoke to Dr. Hunt for consult. To do the CT abdomen pelvis without contrast today. Tube feedings are on hold. to Start an IV fluids 50 cc/h. 08/05/2018-patient is comfortably in the bed communicating by nodding his head. He is aphasic. He has dysphagia with a feeding tube. He also has indwelling suprapubic catheter. No acute events of the last 24 hours. Last night he had a bowel movement. Still complaining of discomfort on abdominal palpation. KUB done this morning indicates dilated stomach and mildly dilated colon. pt has a low-grade fever of 99.6. Reason For Visit: ILEUS AND POSSIBLE CYSTITIS APHASIA, DYSPHAGIA, Physical Exam Vital Signs: Temp Pulse Resp BP Pulse Ox 98.3 F 117 H 21 H 103/78 96 08/05/18 08:00 08/05/18 08:00 08/05/18 08:00 08/05/18 08:00 08/05/18 08:00 Intake & Output 08/04/18 08/05/18 08/06/18 06:59 06:59 06:59 Intake Total 50 320 Output Total 1000 1450 Balance -950 -1130 Weight 57.6 kg 63.1 kg General appearance: PRESENT: no acute distress, thin, other - Patient is bedbound. Head exam: PRESENT: atraumatic Mouth exam: PRESENT: moist, tongue midline Neck exam: ABSENT: carotid bruit, JVD, lymphadenopathy, thyromegaly Respiratory exam: PRESENT: decreased breath sounds Cardiovascular exam: PRESENT: RRR. ABSENT: diastolic murmur, rubs, systolic murmur GI/Abdominal exam: PRESENT: other - Patient has a feeding tube. Abdomen was mildly distended patient is complaining of generalized tenderness on palpation. Bowel sounds are present. Rectal exam: PRESENT: deferred Gentrourinary exam: PRESENT: indwelling catheter Extremities exam: PRESENT: other - Shunt is bedbound has a contractures of the lower extremities. Neurological exam: PRESENT: alert, awake Psychiatric exam: PRESENT: appropriate affect, normal mood. ABSENT: homicidal ideation, suicidal ideation Results Laboratory Results: 08/05/18 03:25 08/05/18 03:25 08/05/18 08/05/18 03:25 03:25 WBC 4.9 RBC 4.06 L Hgb 11.6 L Hct 34.8 L MCV 86 MCH 28.5 MCHC 33.2 RDW 14.9 H Plt Count 222 Seg Neutrophils % Not Reportable Lymphocytes % Not Reportable Monocytes % Not Reportable Eosinophils % Not Reportable Basophils % Not Reportable Absolute Neutrophils Not Reportable Absolute Lymphocytes Not Reportable Absolute Monocytes Not Reportable Absolute Eosinophils Not Reportable Absolute Basophils Not Reportable Sodium 142.9 Potassium 4.4 Chloride 110 H Carbon Dioxide 26 Anion Gap 7 BUN 14 Creatinine 0.94 Est GFR ( Amer) > 60 Est GFR (Non-Af Amer) > 60 Glucose 90 Calcium 9.4 Magnesium 2.1 08/02/18 08/02/18 12:15 13:34 Troponin I Cancelled < 0.012 Impressions: Chest X-Ray 08/02/18 11:48 IMPRESSION: COPD. Scarring in the lung apices. No acute findings. Acute Abdomen Series 08/03/18 00:00 IMPRESSION: Ileus. Abdomen/Pelvis CT 08/04/18 00:00 IMPRESSION: Persistent ileus KUB X-Ray 08/05/18 00:00 IMPRESSION: Marked dilatation of what is likely the stomach. The colon is mildly dilated. Assessment and Plan - Diagnosis (1) Abdominal pain Qualifiers: Abdominal location: lower abdomen, unspecified Qualified Code(s): R10.30 - Lower abdominal pain, unspecified Is this a current diagnosis for this admission?: Yes Plan: The patient has several reasons for abdominal pain. Diagnostic imaging revealed marked feces in the rectosigmoid area. This is likely contributing to the ileus and distention. He also has a positive urinalysis likely indicating acute cystitis. We will treat symptomatically. 08/03/2018-patient was admitted for abdominal pain most likely secondary to fecal impaction. Patient had a good bowel movement last night. On examination this morning belly is flat nontender soft to touch bowel sounds are present. He has suprapubic catheter and PEG is in place. 08/04/2018-patient was admitted for abdominal pain most likely secondary to fecal impaction. But patient states he has a bowel movement but nobody noticed it. Abdominal was much distended on examination patient is in discomfort. Plan to discontinue PEG feeding surgical consult was requested plan to do the CT abdominal pelvis without contrast today. Yesterday's acute abdominal series indicate ileus. 08/05/2018-this elderly male with multiple strokes admitted for the abdominal pain most likely secondary to fecal impaction. Patient has bowel movement last night. KUB this morning indicates distended stomach and mildly dilated colon. Feeding tubes are on hold. dr Hunt is following the patient. (2) Acute cystitis Qualifiers: Hematuria presence: with hematuria Qualified Code(s): N30.01 - Acute cystitis with hematuria Is this a current diagnosis for this admission?: Yes Plan: The patient has greater than 120 red blood cells per high-power field by urinalysis. He is having microscopic hematuria from the cystitis. He has been started on ceftriaxone 1 g daily. Urine culture and blood cultures have been obtained. 08/03/2018-blood cultures and urine cultures are pending. Patient getting IV Rocephin 1 g daily for UTI. Patient is afebrile. Plan is to continue the present management. 08/04/2018-urine cultures came back positive for gram neg rodsa. On Rocephin 1 g IV daily. Patient is afebrile. Temperature 98.1. Plan is to continue the antibiotic therapy. 08/05/2018-cultures from the urine shows gram-negative rods and gram-positive cocci in chains. T-max is 99.6 presently on IV Rocephin 1 g daily. (3) Ileus Is this a current diagnosis for this admission?: Yes Plan: Distended loops of bowel noted on imaging. The patient does have tenderness to palpation with decreased bowel sounds. Decreased transit with possible fecal impaction and an acute infection are both contributing to the ileus. 08/03/2018-patient admitted for ileus. And also have a fecal impaction. On examination this morning belly soft flat nontender. Patient had good bowel movement last night. Plan is to repeat the acute abdominal series today. 08/[id number]-orhf-old male with multiple stroke aphasic bedbound with PEG and suprapubic catheter admitted for ileus. Repeat acute abdominal series shows persistent of the ileus. Plan to do the surgical consult today. To stop the PEG feedings , start on IV fluids normal saline at 50 cc/h and to do CT abdominal pelvis without contrast. 08/05/2018-patient came into the eyelids. KUB this morning shows mildly dilated colon and distended stomach Dr. Hunt is following the patient. PEG tube feeding are on hold. ileus may be secondary to patient being bedbound. And also may be secondary to cystitis. Plan is to continue holding PEG feeding will patient is cleared by surgical team. (4) Abdominal distention Is this a current diagnosis for this admission?: Yes Plan: Secondary to the ileus. A trial of several doses of metoclopramide have been instituted. Multiple medications for constipation will be administered. 08/03/2018-abdominal distention due to fecal impaction is resolved. 08/04/2018-abdominal was very much distended today. Plan to do the CT abdomen pelvis without contrast today. 08/05/2018-patient's abdomen is mildly distended better compared to yesterday. Patient is complaining of generalized tenderness on palpation. (5) Tachycardia Is this a current diagnosis for this admission?: Yes (6) COPD exacerbation Is this a current diagnosis for this admission?: Yes (7) Dysphagia Is this a current diagnosis for this admission?: No (8) Chronic anticoagulation Is this a current diagnosis for this admission?: Yes - Time Time Spent with patient: 15-24 minutes Medications reviewed and adjusted accordingly: Yes Anticipated discharge: Home with Homehealth
[2018-08-05] MEDS: POLYETHYLENE GLYCOL 3350 POWDER 17 GM/1 PACKET PEG SCH (11:40)
[2018-08-05] MEDS: MAGNESIUM CITRATE 296 ML BOTTLE PEG SCH ×2 (11:40→12:34)
[2018-08-05] MEDS: OLANZAPINE 5 MG TABLET PEG SCH (11:41)
[2018-08-05] MEDS: RIVAROXABAN 15 MG TABLET PEG SCH (11:41)
[2018-08-05] MEDS: ESCITALOPRAM OXALATE 10 MG TABLET PEG SCH (11:41)
[2018-08-05] MEDS: METOPROLOL TARTRATE 25 MG TABLET PEG SCH ×2 (11:41→21:34)
[2018-08-05] MEDS: CEFTRIAXONE SODIUM 1,000 MG in DEXTROSE 5%-WATER 50 ML IV SCH (11:44)
[2018-08-05] MEDS: DEXTROSE 5%-NORMAL SALINE 1,000 ML IV PRN (16:51)
--- NOTE | 2018-08-05 21:49 | PDOC PROGRESS REPORT ---
Subjective Progress Note for:: 08/05/18 Subjective:: This is a 73-year-old male admitted with urinary tract infection. I was consulted yesterday for constipation versus ileus. The patient had a very large bowel movement with an enema last night. The patient can answer simple yes or no questions. He denies any abdominal discomfort, chest pain, or shortness of breath. Reason For Visit: ILEUS AND POSSIBLE CYSTITIS APHASIA, DYSPHAGIA, Physical Exam Vital Signs: Temp Pulse Resp BP Pulse Ox 97.2 F 98 22 H 131/74 H 93 08/05/18 19:54 08/05/18 19:23 08/05/18 19:54 08/05/18 19:54 08/05/18 19:23 Intake & Output 08/04/18 08/05/18 08/06/18 06:59 06:59 06:59 Intake Total 50 320 1050 Output Total 1000 1450 250 Balance -950 -1130 800 Weight 57.6 kg 63.1 kg General appearance: PRESENT: no acute distress Head exam: PRESENT: atraumatic, normocephalic Eye exam: PRESENT: EOMI Mouth exam: PRESENT: moist, neck supple Teeth exam: PRESENT: poor dentation Neck exam: ABSENT: meningismus, tenderness, thyromegaly, tracheal deviation Respiratory exam: PRESENT: unlabored. ABSENT: chest wall tenderness, wheezes Cardiovascular exam: PRESENT: RRR Pulses: PRESENT: normal radial pulses Vascular exam: PRESENT: normal capillary refill GI/Abdominal exam: PRESENT: distended - mild, soft. ABSENT: firm, guarding, rebound, rigid, tenderness Extremities exam: ABSENT: clubbing Neurological exam: PRESENT: alert, awake, aphasic Psychiatric exam: ABSENT: agitated, anxious, depressed Focused psych exam: ABSENT: delusional Skin exam: ABSENT: cyanosis, erythema, jaundice Results Laboratory Results: 08/05/18 03:25 08/05/18 03:25 08/05/18 08/05/18 03:25 03:25 WBC 4.9 RBC 4.06 L Hgb 11.6 L Hct 34.8 L MCV 86 MCH 28.5 MCHC 33.2 RDW 14.9 H Plt Count 222 Seg Neutrophils % Not Reportable Lymphocytes % Not Reportable Monocytes % Not Reportable Eosinophils % Not Reportable Basophils % Not Reportable Absolute Neutrophils Not Reportable Absolute Lymphocytes Not Reportable Absolute Monocytes Not Reportable Absolute Eosinophils Not Reportable Absolute Basophils Not Reportable Sodium 142.9 Potassium 4.4 Chloride 110 H Carbon Dioxide 26 Anion Gap 7 BUN 14 Creatinine 0.94 Est GFR ( Amer) > 60 Est GFR (Non-Af Amer) > 60 Glucose 90 Calcium 9.4 Magnesium 2.1 08/02/18 08/02/18 12:15 13:34 Troponin I Cancelled < 0.012 Impressions: Chest X-Ray 08/02/18 11:48 IMPRESSION: COPD. Scarring in the lung apices. No acute findings. Acute Abdomen Series 08/03/18 00:00 IMPRESSION: Ileus. Abdomen/Pelvis CT 08/04/18 00:00 IMPRESSION: Persistent ileus KUB X-Ray 08/05/18 00:00 IMPRESSION: Marked dilatation of what is likely the stomach. The colon is mildly dilated. Assessment & Plan - Diagnosis (1) Constipation Qualifiers: Constipation type: slow transit constipation Qualified Code(s): K59.01 - Slow transit constipation Is this a current diagnosis for this admission?: Yes - Plan Summary Plan Summary: This is a 73-year-old male with constipation versus ileus. The patient is currently being treated for urinary tract infection. The patient's abdomen is less distended today. It is soft and nontender. The patient has had multiple loose bowel movements since his enema. He has had no nausea or vomiting per the nurse's report. I will restart the patient's tube feeds today. Continue with stool softeners and laxatives to encourage gut motility in this bedbound patient. I have reviewed the patient's KUB today. The patient does still have some dilation of his colon, however the large stool burden in the rectum has significantly decreased. Continue with stool softeners. No surgical intervention is planned. I will see the patient again on an as-needed basis. Please renotify with questions or concerns.
[2018-08-06] MEDS: IPRATROPIUM/ALBUTEROL 0.5-2.5 MG/3 ML AMPUL NEB SCH ×3 (00:06→16:17)
[2018-08-06] MEDS: INSULIN REG, HUMAN 100 UNIT/ML 3 ML VIAL (PYX) SUBCUT SCH ×2 (00:12→12:11)
[2018-08-06] MEDS: BUDESONIDE NEB 0.5 MG/2 ML AMPUL NEB SCH ×2 (08:09→19:56)
--- NOTE | 2018-08-06 08:43 | PDOC PROGRESS REPORT ---
Subjective Progress Note for:: 08/06/18 Subjective:: 72 year old male with an unfortunate and complex medical history. He presents with his sister. The patient has a history of 2 strokes and a myocardial infarction. This has left him with aphasia and dysphagia. He has a PEG tube and suprapubic catheter. The patient's sister reports that he began having a cough several days ago. His face would get flushed. He would get diaphoretic. He was having discomfort in his abdomen and the home health care nurse changed his suprapubic catheter 48 hours ago. This was quite painful for him. His sister reports that he was getting more short of breath and coughing more. There was no sputum production. She did give him a nebulizer treatment in addition to his inhaler therapy and this did not help. She then noted that his abdomen was becoming distended and more painful. At this point he was brought to the emergency room. The patient has a positive urinalysis highly suspicious for infection and was found to have distended loops of bowel by diagnostic imaging. He was referred to hospital service for admission. 08/[id number]-szfs-old male with multiple medical problems admitted for fecal impaction. Patient states he has a good bowel movement last night. On examination believe is soft nontender. We are going to restart his PEG feedings today. Patient has also has suprapubic catheter. He is getting IV antibiotic therapy for UTI and blood culture sent and urine cultures are pending. Patient is a phasic. Bedbound. Understand the verbal commands and responds appropriately by nodding his head. 08/04/2018 patient comfortable in the bed aphasic. But is following verbal commands. I asked him to help pain in the abdomen he said yes. On examination abdomen was distended patient so signs of discomfort on gentle palpation. Bowel sounds are sluggish. Spoke to Dr. Hunt for consult. To do the CT abdomen pelvis without contrast today. Tube feedings are on hold. to Start an IV fluids 50 cc/h. 08/05/2018-patient is comfortably in the bed communicating by nodding his head. He is aphasic. He has dysphagia with a feeding tube. He also has indwelling suprapubic catheter. No acute events of the last 24 hours. Last night he had a bowel movement. Still complaining of discomfort on abdominal palpation. KUB done this morning indicates dilated stomach and mildly dilated colon. pt has a low-grade fever of 99.6. 08/06/[id number]-[id number]-old male with history of multiple strokes bedbound admitted with ileus and cystitis. Urine culture positive for dome on started on ciprofloxacin 400 mg IV daily. Surgical consult was done. KUB done yesterday indicates a dilated stomach on the mildly dilated colonic. Tube feedings are restarted by Dr. Hunt no residual was noted until this morning. Patient abdominal still mildly distended soft nontender but patient is complaining of pain on gentle palpation.. Reason For Visit: ILEUS AND POSSIBLE CYSTITIS APHASIA, DYSPHAGIA, Physical Exam Vital Signs: Temp Pulse Resp BP Pulse Ox 98.5 F 85 16 127/86 H 94 08/05/18 23:45 08/06/18 08:09 08/06/18 08:09 08/05/18 23:45 08/06/18 08:09 Intake & Output 08/05/18 08/06/18 08/07/18 06:59 06:59 06:59 Intake Total 320 1370 Output Total 1450 450 Balance -1130 920 Weight 63.1 kg 63.1 kg General appearance: PRESENT: no acute distress Head exam: PRESENT: atraumatic Eye exam: PRESENT: PERRLA Neck exam: ABSENT: carotid bruit, JVD, lymphadenopathy, thyromegaly Respiratory exam: PRESENT: decreased breath sounds Cardiovascular exam: PRESENT: RRR. ABSENT: diastolic murmur, rubs, systolic murmur GI/Abdominal exam: PRESENT: distended, soft, other - Abdominal was mildly distended patient is complaining of tenderness all over the abdominal gentle palpation. bowel sounds are very sluggish. Patient has PEG tube feeding is running well.. ABSENT: guarding, mass, organolmegaly, rebound, tenderness Rectal exam: PRESENT: deferred Gentrourinary exam: PRESENT: other - Probably catheter in place. 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 Patient is bedbound. Results Laboratory Results: 08/05/18 03:25 08/05/18 03:25 08/02/18 08/02/18 12:15 13:34 Troponin I Cancelled < 0.012 Impressions: Chest X-Ray 08/02/18 11:48 IMPRESSION: COPD. Scarring in the lung apices. No acute findings. Acute Abdomen Series 08/03/18 00:00 IMPRESSION: Ileus. Abdomen/Pelvis CT 08/04/18 00:00 IMPRESSION: Persistent ileus KUB X-Ray 08/05/18 00:00 IMPRESSION: Marked dilatation of what is likely the stomach. The colon is mildly dilated. Assessment and Plan - Diagnosis (1) Abdominal pain Qualifiers: Abdominal location: lower abdomen, unspecified Qualified Code(s): R10.30 - Lower abdominal pain, unspecified Is this a current diagnosis for this admission?: Yes Plan: The patient has several reasons for abdominal pain. Diagnostic imaging revealed marked feces in the rectosigmoid area. This is likely contributing to the ileus and distention. He also has a positive urinalysis likely indicating acute cystitis. We will treat symptomatically. 08/03/2018-patient was admitted for abdominal pain most likely secondary to fecal impaction. Patient had a good bowel movement last night. On examination this morning belly is flat nontender soft to touch bowel sounds are present. He has suprapubic catheter and PEG is in place. 08/04/2018-patient was admitted for abdominal pain most likely secondary to fecal impaction. But patient states he has a bowel movement but nobody noticed it. Abdominal was much distended on examination patient is in discomfort. Plan to discontinue PEG feeding surgical consult was requested plan to do the CT abdominal pelvis without contrast today. Yesterday's acute abdominal series indicate ileus. 08/05/2018-this elderly male with multiple strokes admitted for the abdominal pain most likely secondary to fecal impaction. Patient has bowel movement last night. KUB this morning indicates distended stomach and mildly dilated colon. Feeding tubes are on hold. dr Hunt is following the patient. 08/06/2018-patient is still complaining of abdominal pain on gentle palpation. Plan to repeat the KUB. Abdominal was mildly distended. Patient was restarted on PEG feeding yesterday no residual so far. (2) Acute cystitis Qualifiers: Hematuria presence: with hematuria Qualified Code(s): N30.01 - Acute cystitis with hematuria Is this a current diagnosis for this admission?: Yes Plan: The patient has greater than 120 red blood cells per high-power field by urinalysis. He is having microscopic hematuria from the cystitis. He has been started on ceftriaxone 1 g daily. Urine culture and blood cultures have been obtained. 08/03/2018-blood cultures and urine cultures are pending. Patient getting IV Rocephin 1 g daily for UTI. Patient is afebrile. Plan is to continue the present management. 08/04/2018-urine cultures came back positive for gram neg rodsa. On Rocephin 1 g IV daily. Patient is afebrile. Temperature 98.1. Plan is to continue the antibiotic therapy. 08/05/2018-cultures from the urine shows gram-negative rods and gram-positive cocci in chains. T-max is 99.6 presently on IV Rocephin 1 g daily. 08/06/2018-urine culture came back positive for Pseudomonas aeruginosa. to change antibiotics Cipro 400 mg IV daily. (3) Ileus Is this a current diagnosis for this admission?: Yes Plan: Distended loops of bowel noted on imaging. The patient does have tenderness to palpation with decreased bowel sounds. Decreased transit with possible fecal impaction and an acute infection are both contributing to the ileus. 08/03/2018-patient admitted for ileus. And also have a fecal impaction. On examination this morning belly soft flat nontender. Patient had good bowel movement last night. Plan is to repeat the acute abdominal series today. 08/04/[id number]-trbp-old male with multiple stroke aphasic bedbound with PEG and suprapubic catheter admitted for ileus. Repeat acute abdominal series shows persistent of the ileus. Plan to do the surgical consult today. To stop the PEG feedings , start on IV fluids normal saline at 50 cc/h and to do CT abdominal pelvis without contrast. 08/05/2018-patient came in for ileus. KUB this morning shows mildly dilated colon and distended stomach Dr. Hunt is following the patient. PEG tube feeding are on hold. ileus may be secondary to patient being bedbound. And also may be secondary to cystitis. Plan is to continue holding PEG feeding until patient is cleared by surgical team. 08/06/2018-plan to repeat the KUB today. On examination abdomen was mildly distended patient is complaining of generalized mild tenderness on palpation. Bowel sounds are very sluggish. If the KUB is abnormal, plan is to hold the PEG feedings and reconsult surgery. (4) Abdominal distention Is this a current diagnosis for this admission?: Yes Plan: Secondary to the ileus. A trial of several doses of metoclopramide have been instituted. Multiple medications for constipation will be administered. 08/03/2018-abdominal distention due to fecal impaction is resolved. 08/04/2018-abdominal was very much distended today. Plan to do the CT abdomen pelvis without contrast today. 08/05/2018-patient's abdomen is mildly distended better compared to yesterday. Patient is complaining of generalized tenderness on palpation. 08/06/2018 abdominal distention is persisting. (5) Tachycardia Is this a current diagnosis for this admission?: Yes Plan: Secondary to the cystitis. He will receive IV fluids and he is already on metoprolol. This should both resolve the tachycardia. 08/03/2018-tachycardia may be secondary to physical deconditioning, abdominal pain. Heart rate today 76. Tachycardia is resolved. 08/04/2018-patient heart rate is 76. Tachycardia has resolved. 08/06/2018 patient's heart rate today is 83 tachycardia secondary to cystitis/ileus is resolved. (6) COPD exacerbation Is this a current diagnosis for this admission?: Yes Plan: Nebulizer treatments with oxygen supplementation. 08/03/2018-patient has history of COPD on nebulizer treatment and oxygen supplementation. plan is to continue the same treatment. 08/04/2018-patient has history of COPD presently on oxygen via nasal cannula pulse ox is 95% on 2 L. Continue to do the nebulizer treatments. 08/06/2018-pulse ox is 93% on 4 L. Patient is not in respiratory distress. On examination chest bilateral it was decreased no wheezing no crepitations Present. (7) Dysphagia Is this a current diagnosis for this admission?: No Plan: 08/03/2018-patient has history of dysphagia most likely secondary to multiple strokes. to start him on PEG feeding. 08/04/2018-patient has a history of dysphagia secondary to multiple strokes. To hold the PEG feeding today because of the persistence of ileus. 08/06/2018-patient's is on PEG feedings secondary dysphagia due to multiple strokes. No residual noticed this morning. (8) Chronic anticoagulation Is this a current diagnosis for this admission?: Yes Plan: Secondary to multiple strokes. Continue current regimen. Monitor for evidence of bleeding. 08/03/2018-patient has history of multiple strokes. Patient is on xareltto 15 mg via PEG tube. Plan is to continue the present management. 08/04/2018-patient has history of multiple strokes on Xarelto 15 mg daily. Plan is to continue the present management. - Time Time Spent with patient: 15-24 minutes Medications reviewed and adjusted accordingly: Yes Anticipated discharge: SN[facility]
[2018-08-06 09:11] LABS: HEMATOCRIT 38.4 % (37.9-51.0); HEMOGLOBIN 12.5 g/dL (13.5-17.0); MEAN CORPUSCULAR HEMOGLOBIN 28.2 pg (27.0-33.4); MEAN CORPUSCULAR HGB CONC 32.5 g/dL (32.0-36.0); MEAN CORPUSCULAR VOLUME 87 fl (80-97); RED BLOOD COUNT 4.43 10^6/uL (4.35-5.55); RED CELL DISTRIBUTION WIDTH 14.7 % (11.5-14.0); WHITE BLOOD COUNT 4.4 10^3/uL (4.0-10.5)
[2018-08-06 09:33] LABS: ALANINE AMINOTRANSFERASE 43 U/L (21-72); ALBUMIN 3.1 g/dL (3.5-5.0); ALKALINE PHOSPHATASE 52 U/L (38-126); ANION GAP 6 (5-19); ASPARTATE AMINO TRANSFERASE 39 U/L (17-59); BILIRUBIN,DIRECT 0.4 mg/dL (0.0-0.4); BILIRUBIN,TOTAL 0.4 mg/dL (0.2-1.3); BLOOD UREA NITROGEN 18 mg/dL (7-20); CALCIUM 9.7 mg/dL (8.4-10.2); CARBON DIOXIDE 25 mmol/L (22-30); CHLORIDE 111 mmol/L (98-107); GLUCOSE 107 mg/dL (75-110); POTASSIUM 4.6 mmol/L (3.6-5.0); SODIUM 142.1 mmol/L (137-145); TOTAL PROTEIN 6.5 g/dL (6.3-8.2)
[2018-08-06 09:46] LABS: PLATELET COUNT 212 10^3/uL (150-450)
[2018-08-06 09:50] LABS: ABSOLUTE LYMPHOCYTES# (MANUAL) 2.7 10^3/uL (0.5-4.7); ABSOLUTE MONOCYTES # (MANUAL) 0.1 10^3/uL (0.1-1.4); ABSOLUTE NEUTROPHILS# (MANUAL) 1.5 10^3/uL (1.7-8.2); BAND NEUTROPHILS % (MANUAL) 1 % (3-5); BASOPHILS % (MANUAL) 0 % (0-2); EOSINOPHILS % (MANUAL) 2 % (0-6); LYMPHOCYTES % (MANUAL) 60 % (13-45); METAMYELOCYTES % (MANUAL) 1 % (0); MONOCYTES % (MANUAL) 3 % (3-13); SEGMENTED NEUTROPHILS % (MAN) 31 % (42-78); TOTAL CELLS COUNTED 100
[2018-08-06 09:51] LABS: BURR CELLS 1+; OVALOCYTES 1+; PLATELET CLUMPS PRESENT; POIKILOCYTOSIS 1+; SCHISTOCYTES 1+
[2018-08-06] MEDS: POLYETHYLENE GLYCOL 3350 POWDER 17 GM/1 PACKET PEG SCH (10:15)
[2018-08-06] MEDS: METOPROLOL TARTRATE 25 MG TABLET PEG SCH ×2 (10:15→21:50)
[2018-08-06] MEDS: DOCUSATE SODIUM 100 MG/10 ML UDC PEG SCH ×2 (10:15→18:13)
[2018-08-06] MEDS: RIVAROXABAN 15 MG TABLET PEG SCH (10:15)
[2018-08-06] MEDS: ESCITALOPRAM OXALATE 10 MG TABLET PEG SCH (10:15)
[2018-08-06] MEDS: OLANZAPINE 5 MG TABLET PEG SCH (10:15)
[2018-08-06] MEDS: CIPROFLOXACIN 400 MG/D5W RTU 400 MG/200 ML RTUPB IV SCH ×3 (10:34→21:52)
--- NOTE | 2018-08-06 11:55 | RADIOLOGY REPORT (SQ) ---
EXAM DESCRIPTION: KUB/ABDOMEN (SINGLE VIEW) COMPLETED DATE/TIME: 08/06/2018 11:39 am REASON FOR STUDY: ileus COMPARISON: 08/05/2018 NUMBER OF VIEWS: One view. TECHNIQUE: Supine radiographic image of the abdomen acquired. LIMITATIONS: None. FINDINGS: BOWEL GAS PATTERN: Moderate severe to marked dilatation of the colon, again identified. CALCIFICATIONS: No suspicious calcifications. SOFT TISSUES: No gross mass or suggestion of organomegaly. HARDWARE: Gastrostomy tube is again identified with tip in the body of the stomach. Rectal tube is again identified. BONES: No acute fracture. No worrisome bone lesions. OTHER: No other significant finding. IMPRESSION: 1. As on the previous examination dated 08/05/2018, moderate severe to marked dilatation of the colon. TECHNICAL DOCUMENTATION: JOB ID: [id number] [employer]- All Rights Reserved Reading location - IP/workstation name: [email or web address]
[2018-08-06 13:33] LABS: PATH REVIEW PATHOLOGIST REVIEWED
[2018-08-07] MEDS: IPRATROPIUM/ALBUTEROL 0.5-2.5 MG/3 ML AMPUL NEB SCH ×3 (00:48→15:45)
[2018-08-07] MEDS: INSULIN REG, HUMAN 100 UNIT/ML 3 ML VIAL (PYX) SUBCUT SCH ×5 (04:20→23:29)
[2018-08-07 07:46] LABS: ABSOLUTE EOSINOPHILS # (AUTO) 0.3 10^3/uL (0.0-0.6); ABSOLUTE LYMPHOCYTES (AUTO) 1.6 10^3/uL (0.5-4.7); ABSOLUTE MONOCYTES (AUTO) 0.6 10^3/uL (0.1-1.4); ABSOLUTE NEUT (AUTO) 1.5 10^3/uL (1.7-8.2); BASOPHILS % (AUTO) 0.4 % (0-2); EOSINOPHILS % (AUTO) 7.6 % (0-6); HEMATOCRIT 34.8 % (37.9-51.0); HEMOGLOBIN 11.5 g/dL (13.5-17.0); LYMPHOCYTES % (AUTO) 39.4 % (13-45); MEAN CORPUSCULAR HEMOGLOBIN 28.3 pg (27.0-33.4); MEAN CORPUSCULAR VOLUME 86 fl (80-97); MONOCYTES % (AUTO) 15.4 % (3-13); PLATELET COUNT 218 10^3/uL (150-450); RED BLOOD COUNT 4.06 10^6/uL (4.35-5.55); RED CELL DISTRIBUTION WIDTH 15.2 % (11.5-14.0); SEGMENTED NEUTROPHILS % (AUTO) 37.2 % (42-78); TOTAL CELLS COUNTED % (AUTO) 100 %
[2018-08-07 07:51] LABS: RBC MORPHOLOGY COMMENT NORMO-CYTIC/CHROMIC
[2018-08-07 07:58] LABS: ALANINE AMINOTRANSFERASE 33 U/L (21-72); ALBUMIN 3.1 g/dL (3.5-5.0); ALKALINE PHOSPHATASE 49 U/L (38-126); ANION GAP 6 (5-19); ASPARTATE AMINO TRANSFERASE 53 U/L (17-59); BILIRUBIN,DIRECT 0.3 mg/dL (0.0-0.4); BILIRUBIN,TOTAL 0.3 mg/dL (0.2-1.3); BLOOD UREA NITROGEN 18 mg/dL (7-20); CALCIUM 9.8 mg/dL (8.4-10.2); CARBON DIOXIDE 26 mmol/L (22-30); CHLORIDE 111 mmol/L (98-107); GLUCOSE 106 mg/dL (75-110); POTASSIUM 3.8 mmol/L (3.6-5.0); SODIUM 142.7 mmol/L (137-145); TOTAL PROTEIN 6.4 g/dL (6.3-8.2)
[2018-08-07] MEDS: BUDESONIDE NEB 0.5 MG/2 ML AMPUL NEB SCH ×2 (08:30→21:21)
[2018-08-07 08:46] LABS: PLATELET COMMENT ADEQUATE
[2018-08-07] MEDS: METOPROLOL TARTRATE 25 MG TABLET PEG SCH ×2 (11:07→23:22)
[2018-08-07] MEDS: OLANZAPINE 5 MG TABLET PEG SCH (11:07)
[2018-08-07] MEDS: DOCUSATE SODIUM 100 MG/10 ML UDC PEG SCH ×2 (11:07→18:33)
[2018-08-07] MEDS: ESCITALOPRAM OXALATE 10 MG TABLET PEG SCH (11:07)
[2018-08-07] MEDS: RIVAROXABAN 15 MG TABLET PEG SCH (11:08)
[2018-08-07] MEDS: POLYETHYLENE GLYCOL 3350 POWDER 17 GM/1 PACKET PEG SCH (11:08)
[2018-08-07] MEDS: CIPROFLOXACIN 400 MG/D5W RTU 400 MG/200 ML RTUPB IV SCH ×2 (11:21→23:21)
--- NOTE | 2018-08-07 11:25 | RADIOLOGY REPORT (SQ) ---
EXAM DESCRIPTION: PICC INSERTION; U/S GUIDE FOR VASCULAR ACCESS; FLUORO/CV PLACEMENT COMPLETED DATE/TIME: 08/07/2018 10:52 am REASON FOR STUDY: need iv access; IV ACCESS COMPARISON: None. FLUOROSCOPY TIME: 1.1 minute. 1 images saved to PACS. TECHNIQUE: Fluoroscopic and ultrasound guided PICC placement. LIMITATIONS: None. PROCEDURE: After written consent and assessment were obtained, the patient was brought into the fluo roscopy room and placed supine on the table. Ultrasound evaluation of potential access sites were per formed. After successfully identifying a patent right basilic vein, the right arm was prepped and mary ped in a sterile fashion along with the ultrasound probe. The entry site was anesthetized with 1% lid ocaine. A 21 gauge 7 cm needle was advanced through the skin and into the basilic vein under live ult rasound guidance. An ultrasound image was saved to PACS confirming access site. A .018 guide wire w as then inserted through the needle and into the venous system. The needle was then removed and an 11 blade scalpel was used to make a 1cm skin incision. A 5 fr peel-away sheath was advanced over the w tio and into the venous system. A measurement was then made using the existing wire and live fluorosc opic guidance. The wire was then removed and trimmed. The PICC was advanced through the peel-away she ath and into the venous system. The peel-away sheath was removed and the catheter was adhered to the patients arm with a stat lock. The catheter was then aspirated and flushed and a sterile bandage was placed over the access site. A fluoroscopic spot image was saved to PACS confirming the catheter tip within the superior vena cava. IMPRESSION: SUCCESSFUL PLACEMENT OF A 5 FR DUAL LUMEN 40 CM PICC IN THE RIGHT BASILIC VEIN. COMMENT: Patient medication list reviewed: Yes- Quality ID# [id number]:Eligible professional attests to doc umenting in the medical record they obtained, updated, or reviewed the patient's current medications. . Quality ID 145: Final reports for procedures using fluoroscopy that document radiation exposure kirsten linden, or exposure time and number of fluorographic images (if radiation exposure indices are not avail able) Quality ID #76: The patient was prepped and draped using maximum sterile barrier technique including cap, mask, sterile gown, sterile gloves, a large sterile sheet, hand hygiene, and 2% Chlorhexidine fo r cutaneous antisepsis. When ultrasound is used, sterile ultrasound techniques are followed requiring sterile gel and sterile probes. TECHNICAL DOCUMENTATION: JOB ID: [id number] [employer]- All Rights Reserved rev-09/01 Reading location - IP/workstation name: [email or web address]
[2018-08-07] MEDS ORDERED: NORMAL SALINE 10 ML SDV (AFTER EACH USE) IV PRN (11:30)
--- NOTE | 2018-08-07 16:12 | RADIOLOGY REPORT (SQ) ---
EXAM DESCRIPTION: ABDOMEN 2 VIEWS COMPLETED DATE/TIME: 08/07/2018 4:01 pm REASON FOR STUDY: f/u colonic ileus COMPARISON: 08/06/2018 NUMBER OF VIEWS: Two views. TECHNIQUE: Supine and erect/decubitus radiographic images of the abdomen acquired. LIMITATIONS: None. FINDINGS: FREE AIR: None. No abnormal gas collections. LUNG BASES: Clear. BOWEL GAS PATTERN: There is persistent colonic distention. No interval change from prior study. G-t ube remains in place. CALCIFICATIONS: No suspicious calcifications. SOFT TISSUES: No gross mass or suggestion of organomegaly. HARDWARE: None in the abdomen. BONES: No acute fracture. No worrisome bone lesions. OTHER: No other significant finding. IMPRESSION: No interval change. TECHNICAL DOCUMENTATION: JOB ID: [id number] [employer]- All Rights Reserved Reading location - IP/workstation name: [email or web address]
--- NOTE | 2018-08-07 16:16 | PDOC PROGRESS REPORT ---
Subjective Progress Note for:: 08/07/18 Subjective:: Asked to reevaluate patient who had been seen by general surgery service several days ago for abdominal distention. Patient is status post cerebrovascular accidents with limited mobility, currently in the hospital for treatment of urosepsis. Noted with abdominal distention. No emesis. Patient apparently had good response with enema in the past. Has been having scant amount of rectal output recently however with increased abdominal distention. Patient is not able to communicate other than yes. He is in no acute distress. Reason For Visit: ILEUS AND POSSIBLE CYSTITIS APHASIA, DYSPHAGIA, Physical Exam Vital Signs: Temp Pulse Resp BP Pulse Ox 97.4 F 74 18 117/60 99 08/07/18 12:00 08/07/18 15:45 08/07/18 15:45 08/07/18 12:00 08/07/18 15:45 Intake & Output 08/06/18 08/07/18 08/08/18 06:59 06:59 06:59 Intake Total 1370 1988 200 Output Total 450 Balance 920 1988 200 Weight 63.1 kg 55.1 kg General appearance: PRESENT: no acute distress, cooperative Respiratory exam: PRESENT: clear to auscultation eric Cardiovascular exam: PRESENT: RRR GI/Abdominal exam: PRESENT: other - Moderately distended but soft with no appar ent tenderness and certainly no peritoneal signs. Active bowel sounds. Rectal exam: PRESENT: other - No palpable masses. Patient with liquid bowel movement with digital rectal exam. No fecal impaction felt in the rectal vault. Results Laboratory Results: 08/07/18 05:00 08/07/18 05:00 08/07/18 08/07/18 05:00 05:00 WBC 4.0 RBC 4.06 L Hgb 11.5 L Hct 34.8 L MCV 86 MCH 28.3 MCHC 33.0 RDW 15.2 H Plt Count 218 Seg Neutrophils % 37.2 L Lymphocytes % 39.4 Monocytes % 15.4 H Eosinophils % 7.6 H Basophils % 0.4 Absolute Neutrophils 1.5 L Absolute Lymphocytes 1.6 Absolute Monocytes 0.6 Absolute Eosinophils 0.3 Absolute Basophils 0.0 Sodium 142.7 Potassium 3.8 Chloride 111 H Carbon Dioxide 26 Anion Gap 6 BUN 18 Creatinine 0.86 Est GFR ( Amer) > 60 Est GFR (Non-Af Amer) > 60 Glucose 106 Calcium 9.8 Magnesium 2.0 Total Bilirubin 0.3 AST 53 ALT 33 Alkaline Phosphatase 49 Total Protein 6.4 Albumin 3.1 L 08/02/18 13:34 Blood Blood Culture - Final NO GROWTH IN 5 DAYS 08/02/18 12:15 Blood Blood Culture - Final NO GROWTH IN 5 DAYS 08/02/18 12:15 Suprapubic Catheter Urine Culture - Final Pseudomonas Aeruginosa Enterococcus Faecalis(Group D) 08/02/18 08/02/18 12:15 13:34 Troponin I Cancelled < 0.012 Impressions: Chest X-Ray 08/02/18 11:48 IMPRESSION: COPD. Scarring in the lung apices. No acute findings. Acute Abdomen Series 08/03/18 00:00 IMPRESSION: Ileus. Abdomen/Pelvis CT 08/04/18 00:00 IMPRESSION: Persistent ileus KUB X-Ray 08/06/18 00:00 IMPRESSION: 1. As on the previous examination dated 08/05/2018, moderate severe to marked dilatation of the colon. Guidance Fluoroscopy 08/07/18 00:00 IMPRESSION: SUCCESSFUL PLACEMENT OF A 5 FR DUAL LUMEN 40 CM PICC IN THE RIGHT BASILIC VEIN. Interventional Vascular Procedure 08/07/18 00:00 IMPRESSION: SUCCESSFUL PLACEMENT OF A 5 FR DUAL LUMEN 40 CM PICC IN THE RIGHT BASILIC VEIN. PICC Line Insertion 08/07/18 00:00 IMPRESSION: SUCCESSFUL PLACEMENT OF A 5 FR DUAL LUMEN 40 CM PICC IN THE RIGHT BASILIC VEIN. Assessment & Plan - Diagnosis (1) Abdominal distension (gaseous) Is this a current diagnosis for this admission?: Yes Plan: Hold tube feeds for now. Place PEG to gravity drain. Gaviscon via PEG. Will administer rectal enemas. Check stool for C. difficile. General surgery service will follow.
[2018-08-07] MEDS: NORMAL SALINE 1000 ML 1,000 ML IV PRN (16:26)
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
[2018-08-07] MEDS ORDERED: NA PHOS,M-B/NA PHOS,DI-BA (ADULT) 133 ML ENEMA PR ONE (17:00)
[2018-08-07] MEDS: NORMAL SALINE 10 ML SDV (SCHEDULED) IV SCH (23:23)
[2018-08-08] MEDS: IPRATROPIUM/ALBUTEROL 0.5-2.5 MG/3 ML AMPUL NEB SCH ×2 (00:35→08:21)
[2018-08-08] MEDS: INSULIN REG, HUMAN 100 UNIT/ML 3 ML VIAL (PYX) SUBCUT SCH ×3 (05:17→22:13)
[2018-08-08] MEDS: BUDESONIDE NEB 0.5 MG/2 ML AMPUL NEB SCH ×2 (08:21→19:29)
--- NOTE | 2018-08-08 09:19 | RADIOLOGY REPORT (SQ) ---
EXAM DESCRIPTION: ABDOMEN 2 VIEWS COMPLETED DATE/TIME: 08/08/2018 9:11 am REASON FOR STUDY: f/u distension COMPARISON: 08/07/2018, 08/06/2018 NUMBER OF VIEWS: Two views. TECHNIQUE: Supine and erect/decubitus radiographic images of the abdomen acquired. LIMITATIONS: None. FINDINGS: FREE AIR: None. No abnormal gas collections. LUNG BASES: Clear. BOWEL GAS PATTERN: Persistent colonic distention. G-tube remains in place. CALCIFICATIONS: No suspicious calcifications. SOFT TISSUES: No gross mass or suggestion of organomegaly. HARDWARE: None in the abdomen. BONES: No acute fracture. No worrisome bone lesions. OTHER: No other significant finding. IMPRESSION: No interval change. Persistent colonic distention. TECHNICAL DOCUMENTATION: JOB ID: [id number] [employer]- All Rights Reserved Reading location - IP/workstation name: [email or web address]
--- NOTE | 2018-08-08 10:32 | PDOC PROGRESS REPORT ---
Subjective Progress Note for:: 08/08/18 Subjective:: c/o abd distension Reason For Visit: ILEUS AND POSSIBLE CYSTITIS APHASIA, DYSPHAGIA, Physical Exam Vital Signs: Temp Pulse Resp BP Pulse Ox 97.5 F 88 24 H 130/81 H 90 L 08/08/18 00:00 08/08/18 08:21 08/08/18 08:21 08/08/18 00:00 08/08/18 08:21 Intake & Output 08/07/18 08/08/18 08/09/18 06:59 06:59 06:59 Intake Total 1988 440 200 Output Total 500 Balance 1988 200 Weight 55.1 kg 55.2 kg General appearance: PRESENT: no acute distress Head exam: PRESENT: atraumatic Eye exam: PRESENT: EOMI Mouth exam: PRESENT: moist Neck exam: PRESENT: full ROM Respiratory exam: PRESENT: clear to auscultation eric Cardiovascular exam: PRESENT: RRR Pulses: PRESENT: normal femoral pulses GI/Abdominal exam: PRESENT: distended, other - tympainitic Rectal exam: PRESENT: laceration Gentrourinary exam: PRESENT: other - suprapubic tube Extremities exam: PRESENT: full ROM Neurological exam: PRESENT: alert Psychiatric exam: PRESENT: appropriate affect Results Laboratory Results: 08/07/18 05:00 08/07/18 05:00 08/02/18 13:34 Blood Blood Culture - Final NO GROWTH IN 5 DAYS 08/02/18 12:15 Blood Blood Culture - Final NO GROWTH IN 5 DAYS 08/02/18 08/02/18 12:15 13:34 Troponin I Cancelled < 0.012 Impressions: Chest X-Ray 08/02/18 11:48 IMPRESSION: COPD. Scarring in the lung apices. No acute findings. Acute Abdomen Series 08/03/18 00:00 IMPRESSION: Ileus. Abdomen/Pelvis CT 08/04/18 00:00 IMPRESSION: Persistent ileus KUB X-Ray 08/06/18 00:00 IMPRESSION: 1. As on the previous examination dated 08/05/2018, moderate severe to marked dilatation of the colon. Guidance Fluoroscopy 08/07/18 00:00 IMPRESSION: SUCCESSFUL PLACEMENT OF A 5 FR DUAL LUMEN 40 CM PICC IN THE RIGHT BASILIC VEIN. Interventional Vascular Procedure 08/07/18 00:00 IMPRESSION: SUCCESSFUL PLACEMENT OF A 5 FR DUAL LUMEN 40 CM PICC IN THE RIGHT BASILIC VEIN. PICC Line Insertion 08/07/18 00:00 IMPRESSION: SUCCESSFUL PLACEMENT OF A 5 FR DUAL LUMEN 40 CM PICC IN THE RIGHT BASILIC VEIN. Abdomen X-Ray 08/08/18 07:00 IMPRESSION: No interval change. Persistent colonic distention. 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
[2018-08-08] MEDS: NORMAL SALINE 10 ML SDV (SCHEDULED) IV SCH ×2 (10:50→22:23)
[2018-08-08] MEDS: CIPROFLOXACIN 400 MG/D5W RTU 400 MG/200 ML RTUPB IV SCH ×2 (10:50→22:22)
[2018-08-08] MEDS: METOPROLOL TARTRATE 25 MG TABLET PEG SCH ×2 (12:20→22:22)
[2018-08-08] MEDS: ESCITALOPRAM OXALATE 10 MG TABLET PEG SCH (12:20)
[2018-08-08] MEDS: POLYETHYLENE GLYCOL 3350 POWDER 17 GM/1 PACKET PEG SCH (12:20)
[2018-08-08] MEDS: DOCUSATE SODIUM 100 MG/10 ML UDC PEG SCH ×2 (12:20→17:04)
[2018-08-08] MEDS: OLANZAPINE 5 MG TABLET PEG SCH (12:21)
[2018-08-08] MEDS: RIVAROXABAN 15 MG TABLET PEG SCH (12:21)
[2018-08-08] MEDS: NORMAL SALINE 1000 ML 1,000 ML IV PRN (12:41)
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
[2018-08-08] MEDS: ALBUTEROL SULFATE 0.083% NEB 2.5 MG/3 ML AMPUL NEB PRN (19:29)
[2018-08-09] MEDS: INSULIN REG, HUMAN 100 UNIT/ML 3 ML VIAL (PYX) SUBCUT SCH ×4 (03:09→17:11)
[2018-08-09] MEDS: DEXTROSE 50%-WATER 25 GM/50 ML DISP.SYRIN IV PRN (05:51)
[2018-08-09] MEDS: BUDESONIDE NEB 0.5 MG/2 ML AMPUL NEB SCH ×2 (07:46→19:29)
[2018-08-09] MEDS: NORMAL SALINE 1000 ML 1,000 ML IV PRN (07:52)
--- NOTE | 2018-08-09 09:35 | PDOC PROGRESS REPORT ---
Subjective Progress Note for:: 08/09/18 Subjective:: Looks much more comfortable. Reason For Visit: ILEUS AND POSSIBLE CYSTITIS APHASIA, DYSPHAGIA, Physical Exam Vital Signs: Temp Pulse Resp BP Pulse Ox 97.5 F 94 18 140/80 H 93 08/08/18 23:05 08/09/18 07:46 08/09/18 07:46 08/08/18 23:05 08/09/18 07:46 Intake & Output 08/08/18 08/09/18 08/10/18 06:59 06:59 06:59 Intake Total 440 2600 Output Total 1050 550 Balance -610 2050 Weight 55.2 kg 55.2 kg General appearance: PRESENT: no acute distress, cooperative Respiratory exam: PRESENT: clear to auscultation eric Cardiovascular exam: PRESENT: RRR GI/Abdominal exam: PRESENT: other - Soft, mildly distended, much improved from couple of days ago. Active bowel sounds. Results Laboratory Results: 08/07/18 05:00 08/07/18 05:00 08/02/18 08/02/18 12:15 13:34 Troponin I Cancelled < 0.012 Impressions: Chest X-Ray 08/02/18 11:48 IMPRESSION: COPD. Scarring in the lung apices. No acute findings. Acute Abdomen Series 08/03/18 00:00 IMPRESSION: Ileus. Abdomen/Pelvis CT 08/04/18 00:00 IMPRESSION: Persistent ileus KUB X-Ray 08/06/18 00:00 IMPRESSION: 1. As on the previous examination dated 08/05/2018, moderate severe to marked dilatation of the colon. Guidance Fluoroscopy 08/07/18 00:00 IMPRESSION: SUCCESSFUL PLACEMENT OF A 5 FR DUAL LUMEN 40 CM PICC IN THE RIGHT BASILIC VEIN. Interventional Vascular Procedure 08/07/18 00:00 IMPRESSION: SUCCESSFUL PLACEMENT OF A 5 FR DUAL LUMEN 40 CM PICC IN THE RIGHT BASILIC VEIN. PICC Line Insertion 08/07/18 00:00 IMPRESSION: SUCCESSFUL PLACEMENT OF A 5 FR DUAL LUMEN 40 CM PICC IN THE RIGHT BASILIC VEIN. Abdomen X-Ray 08/08/18 07:00 IMPRESSION: No interval change. Persistent colonic distention. Assessment & Plan - Diagnosis (1) Abdominal distension (gaseous) Is this a current diagnosis for this admission?: Yes Plan: Looks much better after enemas and rectal tube. We will repeat x-rays in the morning. If he continues to improve may resume his tube feeds tomorrow.
[2018-08-09] MEDS: METOPROLOL TARTRATE 25 MG TABLET PEG SCH ×2 (09:37→22:06)
[2018-08-09] MEDS: DOCUSATE SODIUM 100 MG/10 ML UDC PEG SCH ×2 (09:37→17:11)
[2018-08-09] MEDS: ESCITALOPRAM OXALATE 10 MG TABLET PEG SCH (09:37)
[2018-08-09] MEDS: POLYETHYLENE GLYCOL 3350 POWDER 17 GM/1 PACKET PEG SCH (09:39)
[2018-08-09] MEDS: RIVAROXABAN 15 MG TABLET PEG SCH (09:39)
[2018-08-09] MEDS: CIPROFLOXACIN 400 MG/D5W RTU 400 MG/200 ML RTUPB IV SCH ×2 (09:43→22:08)
[2018-08-09] MEDS: NORMAL SALINE 10 ML SDV (SCHEDULED) IV SCH ×2 (09:44→22:08)
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
[2018-08-09] MEDS: DEXTROSE 5%-NORMAL SALINE 1,000 ML IV PRN (17:11)
[2018-08-09] MEDS: ALBUTEROL SULFATE 0.083% NEB 2.5 MG/3 ML AMPUL NEB PRN (19:29)
[2018-08-10] MEDS: INSULIN REG, HUMAN 100 UNIT/ML 3 ML VIAL (PYX) SUBCUT SCH ×4 (03:14→17:30)
[2018-08-10] MEDS: BUDESONIDE NEB 0.5 MG/2 ML AMPUL NEB SCH ×2 (07:45→20:49)
--- NOTE | 2018-08-10 09:56 | RADIOLOGY REPORT (SQ) ---
EXAM DESCRIPTION: ABDOMEN 2 VIEWS COMPLETED DATE/TIME: 08/10/2018 9:41 am REASON FOR STUDY: f/u bowel distension COMPARISON: 08/08/2018. NUMBER OF VIEWS: Two views. TECHNIQUE: Supine and erect/decubitus radiographic images of the abdomen acquired. LIMITATIONS: None. FINDINGS: FREE AIR: None. No abnormal gas collections. LUNG BASES: Clear. BOWEL GAS PATTERN: Gas throughout the colon with mild distention, essentially unchanged. No air-flui d levels. CALCIFICATIONS: No suspicious calcifications. SOFT TISSUES: No gross mass or suggestion of organomegaly. HARDWARE: Gastrostomy tube and suprapubic catheter. BONES: No acute fracture. No worrisome bone lesions. OTHER: No other significant finding. IMPRESSION: NO SIGNIFICANT INTERVAL CHANGE. MILD GASEOUS DISTENTION OF THE COLON. TECHNICAL DOCUMENTATION: JOB ID: [id number] [employer]- All Rights Reserved Reading location - IP/workstation name: [email or web address]
[2018-08-10] MEDS: DEXTROSE 5%-NORMAL SALINE 1,000 ML IV PRN (11:12)
[2018-08-10] MEDS: CIPROFLOXACIN 400 MG/D5W RTU 400 MG/200 ML RTUPB IV SCH ×2 (11:13→22:50)
[2018-08-10 12:49] LABS: ABSOLUTE EOSINOPHILS # (AUTO) 0.1 10^3/uL (0.0-0.6); ABSOLUTE LYMPHOCYTES (AUTO) 1.2 10^3/uL (0.5-4.7); ABSOLUTE MONOCYTES (AUTO) 0.5 10^3/uL (0.1-1.4); ABSOLUTE NEUT (AUTO) 2.8 10^3/uL (1.7-8.2); BASOPHILS % (AUTO) 0.8 % (0-2); EOSINOPHILS % (AUTO) 2.5 % (0-6); HEMATOCRIT 32.2 % (37.9-51.0); HEMOGLOBIN 10.8 g/dL (13.5-17.0); LYMPHOCYTES % (AUTO) 25.8 % (13-45); MEAN CORPUSCULAR HEMOGLOBIN 28.1 pg (27.0-33.4); MEAN CORPUSCULAR HGB CONC 33.4 g/dL (32.0-36.0); MEAN CORPUSCULAR VOLUME 84 fl (80-97); MONOCYTES % (AUTO) 10.9 % (3-13); PLATELET COUNT 217 10^3/uL (150-450); RED BLOOD COUNT 3.83 10^6/uL (4.35-5.55); RED CELL DISTRIBUTION WIDTH 14.3 % (11.5-14.0); TOTAL CELLS COUNTED % (AUTO) 100 %; WHITE BLOOD COUNT 4.7 10^3/uL (4.0-10.5)
[2018-08-10] MEDS: METOPROLOL TARTRATE 25 MG TABLET PEG SCH ×2 (12:50→22:50)
[2018-08-10] MEDS: DOCUSATE SODIUM 100 MG/10 ML UDC PEG SCH ×2 (12:50→17:30)
[2018-08-10] MEDS: ESCITALOPRAM OXALATE 10 MG TABLET PEG SCH (12:50)
[2018-08-10] MEDS: POLYETHYLENE GLYCOL 3350 POWDER 17 GM/1 PACKET PEG SCH (12:51)
[2018-08-10] MEDS: RIVAROXABAN 15 MG TABLET PEG SCH (12:51)
[2018-08-10] MEDS: NORMAL SALINE 10 ML SDV (SCHEDULED) IV SCH ×2 (12:57→22:51)
[2018-08-10 13:12] LABS: ANION GAP 5 (5-19); BLOOD UREA NITROGEN 8 mg/dL (7-20); CALCIUM 8.9 mg/dL (8.4-10.2); CARBON DIOXIDE 25 mmol/L (22-30); CHLORIDE 108 mmol/L (98-107); GLUCOSE 123 mg/dL (75-110); POTASSIUM 3.4 mmol/L (3.6-5.0); SODIUM 137.9 mmol/L (137-145)
--- NOTE | 2018-08-10 13:14 | PDOC PROGRESS REPORT ---
Subjective Progress Note for:: 08/10/18 Subjective:: Denies significant pains Reason For Visit: ILEUS AND POSSIBLE CYSTITIS APHASIA, DYSPHAGIA, Physical Exam Vital Signs: Temp Pulse Resp BP Pulse Ox 98.0 F 88 18 162/87 H 96 08/10/18 08:19 08/10/18 08:19 08/10/18 08:19 08/10/18 08:19 08/10/18 08:19 Intake & Output 08/09/18 08/10/18 08/11/18 06:59 06:59 06:59 Intake Total 2600 1400 1191 Output Total 550 955 Balance 2050 445 1191 Weight 55.2 kg 55.4 kg Exam: abd is soft and non tender Results Laboratory Results: 08/10/18 12:30 08/10/18 12:30 WBC 4.7 RBC 3.83 L Hgb 10.8 L Hct 32.2 L MCV 84 MCH 28.1 MCHC 33.4 RDW 14.3 H Plt Count 217 Seg Neutrophils % 60.0 Lymphocytes % 25.8 Monocytes % 10.9 Eosinophils % 2.5 Basophils % 0.8 Absolute Neutrophils 2.8 Absolute Lymphocytes 1.2 Absolute Monocytes 0.5 Absolute Eosinophils 0.1 Absolute Basophils 0.0 08/02/18 08/02/18 12:15 13:34 Troponin I Cancelled < 0.012 Impressions: Chest X-Ray 08/02/18 11:48 IMPRESSION: COPD. Scarring in the lung apices. No acute findings. Acute Abdomen Series 08/03/18 00:00 IMPRESSION: Ileus. Abdomen/Pelvis CT 08/04/18 00:00 IMPRESSION: Persistent ileus KUB X-Ray 08/06/18 00:00 IMPRESSION: 1. As on the previous examination dated 08/05/2018, moderate severe to marked dilatation of the colon. Guidance Fluoroscopy 08/07/18 00:00 IMPRESSION: SUCCESSFUL PLACEMENT OF A 5 FR DUAL LUMEN 40 CM PICC IN THE RIGHT BASILIC VEIN. Interventional Vascular Procedure 08/07/18 00:00 IMPRESSION: SUCCESSFUL PLACEMENT OF A 5 FR DUAL LUMEN 40 CM PICC IN THE RIGHT BASILIC VEIN. PICC Line Insertion 08/07/18 00:00 IMPRESSION: SUCCESSFUL PLACEMENT OF A 5 FR DUAL LUMEN 40 CM PICC IN THE RIGHT BASILIC VEIN. Abdomen X-Ray 08/10/18 07:00 IMPRESSION: NO SIGNIFICANT INTERVAL CHANGE. MILD GASEOUS DISTENTION OF THE COLON. Assessment & Plan - Diagnosis (1) Ileus Is this a current diagnosis for this admission?: Yes - Time Time Spent with patient: 15-24 minutes - Plan Summary Plan Summary: Ileus appears to be improving. Still has some gaseous distention of colon. Will start tube feeds with NS and if tolerates start reg feedings tomorrow.
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
[2018-08-10] MEDS: ALBUTEROL SULFATE 0.083% NEB 2.5 MG/3 ML AMPUL NEB PRN (20:49)
[2018-08-11] MEDS: INSULIN REG, HUMAN 100 UNIT/ML 3 ML VIAL (PYX) SUBCUT SCH ×4 (02:09→17:35)
[2018-08-11] MEDS: DEXTROSE 5%-NORMAL SALINE 1,000 ML IV PRN (06:31)
[2018-08-11] MEDS: BUDESONIDE NEB 0.5 MG/2 ML AMPUL NEB SCH ×2 (08:11→21:58)
[2018-08-11] MEDS: CIPROFLOXACIN 400 MG/D5W RTU 400 MG/200 ML RTUPB IV SCH ×2 (11:10→23:06)
[2018-08-11] MEDS: DOCUSATE SODIUM 100 MG/10 ML UDC PEG SCH ×2 (11:10→17:36)
[2018-08-11] MEDS: POLYETHYLENE GLYCOL 3350 POWDER 17 GM/1 PACKET PEG SCH (11:11)
[2018-08-11] MEDS: METOPROLOL TARTRATE 25 MG TABLET PEG SCH ×2 (11:11→23:05)
[2018-08-11] MEDS: ESCITALOPRAM OXALATE 10 MG TABLET PEG SCH (11:11)
[2018-08-11] MEDS: RIVAROXABAN 15 MG TABLET PEG SCH (11:11)
[2018-08-11] MEDS: NORMAL SALINE 10 ML SDV (SCHEDULED) IV SCH ×2 (11:12→23:06)
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
[2018-08-11 15:44] LABS: ANION GAP 8 (5-19); BLOOD UREA NITROGEN 4 mg/dL (7-20); CALCIUM 8.9 mg/dL (8.4-10.2); CARBON DIOXIDE 23 mmol/L (22-30); CHLORIDE 108 mmol/L (98-107); GLUCOSE 103 mg/dL (75-110); POTASSIUM 3.1 mmol/L (3.6-5.0); SODIUM 138.9 mmol/L (137-145)
--- NOTE | 2018-08-11 21:30 | PDOC PROGRESS REPORT ---
Subjective Progress Note for:: 08/11/18 Subjective:: no pains Reason For Visit: ILEUS AND POSSIBLE CYSTITIS APHASIA, DYSPHAGIA, Physical Exam Vital Signs: Temp Pulse Resp BP Pulse Ox 98.4 F 92 16 128/90 H 95 08/11/18 19:28 08/11/18 19:28 08/11/18 19:28 08/11/18 19:28 08/11/18 19:28 Intake & Output 08/10/18 08/11/18 08/12/18 06:59 06:59 06:59 Intake Total 1400 2391 200 Output Total 955 2500 900 Balance 762 -721 -423 Weight 55.4 kg 52.5 kg Exam: abdomen soft and non tender, mild distention Results Laboratory Results: 08/10/18 12:30 08/11/18 15:00 08/11/18 15:00 Sodium 138.9 Potassium 3.1 L Chloride 108 H Carbon Dioxide 23 Anion Gap 8 BUN 4 L Creatinine 0.73 Est GFR ( Amer) > 60 Est GFR (Non-Af Amer) > 60 Glucose 103 Calcium 8.9 Magnesium 1.4 L 08/02/18 08/02/18 12:15 13:34 Troponin I Cancelled < 0.012 Impressions: Chest X-Ray 08/02/18 11:48 IMPRESSION: COPD. Scarring in the lung apices. No acute findings. Acute Abdomen Series 08/03/18 00:00 IMPRESSION: Ileus. Abdomen/Pelvis CT 08/04/18 00:00 IMPRESSION: Persistent ileus KUB X-Ray 08/06/18 00:00 IMPRESSION: 1. As on the previous examination dated 08/05/2018, moderate severe to marked dilatation of the colon. Guidance Fluoroscopy 08/07/18 00:00 IMPRESSION: SUCCESSFUL PLACEMENT OF A 5 FR DUAL LUMEN 40 CM PICC IN THE RIGHT BASILIC VEIN. Interventional Vascular Procedure 08/07/18 00:00 IMPRESSION: SUCCESSFUL PLACEMENT OF A 5 FR DUAL LUMEN 40 CM PICC IN THE RIGHT BASILIC VEIN. PICC Line Insertion 08/07/18 00:00 IMPRESSION: SUCCESSFUL PLACEMENT OF A 5 FR DUAL LUMEN 40 CM PICC IN THE RIGHT BASILIC VEIN. Abdomen X-Ray 08/10/18 07:00 IMPRESSION: NO SIGNIFICANT INTERVAL CHANGE. MILD GASEOUS DISTENTION OF THE COL ON. Assessment & Plan - Diagnosis (1) Ileus Is this a current diagnosis for this admission?: Yes - Time Time Spent with patient: 15-24 minutes - Plan Summary Plan Summary: OK to start G tube feedings Will sign off Call for any questions
[2018-08-12] MEDS: INSULIN REG, HUMAN 100 UNIT/ML 3 ML VIAL (PYX) SUBCUT SCH ×4 (01:19→17:29)
[2018-08-12] MEDS: DEXTROSE 5%-NORMAL SALINE 1,000 ML IV PRN ×2 (02:32→22:38)
[2018-08-12] MEDS: BUDESONIDE NEB 0.5 MG/2 ML AMPUL NEB SCH ×2 (07:46→21:48)
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
[2018-08-12] MEDS: CIPROFLOXACIN 400 MG/D5W RTU 400 MG/200 ML RTUPB IV SCH ×2 (11:20→22:37)
[2018-08-12] MEDS: RIVAROXABAN 15 MG TABLET PEG SCH (11:20)
[2018-08-12] MEDS: POLYETHYLENE GLYCOL 3350 POWDER 17 GM/1 PACKET PEG SCH (11:20)
[2018-08-12] MEDS: METOPROLOL TARTRATE 25 MG TABLET PEG SCH ×2 (11:21→22:37)
[2018-08-12] MEDS: ESCITALOPRAM OXALATE 10 MG TABLET PEG SCH (11:21)
[2018-08-12] MEDS: DOCUSATE SODIUM 100 MG/10 ML UDC PEG SCH ×2 (11:21→17:50)
[2018-08-12] MEDS: NORMAL SALINE 10 ML SDV (SCHEDULED) IV SCH ×2 (11:23→22:38)
[2018-08-12 15:22] LABS: ANION GAP 6 (5-19); BLOOD UREA NITROGEN 5 mg/dL (7-20); CALCIUM 8.7 mg/dL (8.4-10.2); CARBON DIOXIDE 22 mmol/L (22-30); CHLORIDE 113 mmol/L (98-107); GLUCOSE 102 mg/dL (75-110); POTASSIUM 3.4 mmol/L (3.6-5.0); SODIUM 141.1 mmol/L (137-145)
[2018-08-12] MEDS ORDERED: MAGNESIUM SULFATE/D5W 1 GM/100 ML RTUPB IV ONE (16:30)
[2018-08-12] MEDS ORDERED: POTASSIUM CHLORIDE 20 MEQ PACKET PEG ONE (16:30)
--- NOTE | 2018-08-12 21:00 | RADIOLOGY REPORT (SQ) ---
EXAM DESCRIPTION: XR ABDOMEN 2 VIEWS SUPINE ERECT COMPLETED DATE/TME: 08/12/2018 17:21 CLINICAL HISTORY: 73 years, Male, reassess gas pattern, distention has almost resolve Compared to 08/10/2018. FINDINGS: Moderate amount of stool in the colon. Significant dilation of colonic loops. No significant free intraperitoneal air. Transverse colon is dilated to 9 cm. Sigmoid colon is dilated to 10 cm. This is worse than the prior study. Right colon measures approximately 7 cm. IMPRESSION: Worsening diffuse colonic dilatation which may be due to ileus. Could also represent Ho syndrome.
--- NOTE | 2018-08-12 22:50 | PDOC PROGRESS REPORT ---
Subjective Progress Note for:: 08/12/18 Reason For Visit: ILEUS AND POSSIBLE CYSTITIS APHASIA, DYSPHAGIA, Physical Exam Vital Signs: Temp Pulse Resp BP Pulse Ox 97.9 F 82 16 141/83 H 98 08/12/18 19:10 08/12/18 21:50 08/12/18 21:50 08/12/18 19:10 08/12/18 21:50 Intake & Output 08/11/18 08/12/18 08/13/18 06:59 06:59 06:59 Intake Total 2391 1400 1959 Output Total 2500 1300 400 Balance -940 980 7284 Weight 52.5 kg 52.5 kg Exam: Abdominal distention and large residual air on J tube XRAY abd showed dilated colon and moderate stool. Ho's vs Ileus Results Laboratory Results: 08/10/18 12:30 08/12/18 14:50 08/12/18 14:50 Sodium 141.1 Potassium 3.4 L Chloride 113 H Carbon Dioxide 22 Anion Gap 6 BUN 5 L Creatinine 0.83 Est GFR ( Amer) > 60 Est GFR (Non-Af Amer) > 60 Glucose 102 Calcium 8.7 Magnesium 1.5 L 08/02/18 08/02/18 12:15 13:34 Troponin I Cancelled < 0.012 Impressions: Chest X-Ray 08/02/18 11:48 IMPRESSION: COPD. Scarring in the lung apices. No acute findings. Acute Abdomen Series 08/03/18 00:00 IMPRESSION: Ileus. Abdomen/Pelvis CT 08/04/18 00:00 IMPRESSION: Persistent ileus KUB X-Ray 08/06/18 00:00 IMPRESSION: 1. As on the previous examination dated 08/05/2018, moderate severe to marked dilatation of the colon. Guidance Fluoroscopy 08/07/18 00:00 IMPRESSION: SUCCESSFUL PLACEMENT OF A 5 FR DUAL LUMEN 40 CM PICC IN THE RIGHT BASILIC VEIN. Interventional Vascular Procedure 08/07/18 00:00 IMPRESSION: SUCCESSFUL PLACEMENT OF A 5 FR DUAL LUMEN 40 CM PICC IN THE RIGHT BASILIC VEIN. PICC Line Insertion 08/07/18 00:00 IMPRESSION: SUCCESSFUL PLACEMENT OF A 5 FR DUAL LUMEN 40 CM PICC IN THE RIGHT BASILIC VEIN. Abdomen X-Ray 08/12/18 17:21 IMPRESSION: Worsening diffuse colonic dilatation which may be due to ileus. Could also represent [place] syndrome. Assessment & Plan - Diagnosis (1) Ileus Is this a current diagnosis for this admission?: Yes - Time Time Spent with patient: 15-24 minutes - Inpatient Certification Medical Necessity: Need Close Monitoring Due to Risk of Patient Decompensation, Need For IV Fluids - Plan Summary Plan Summary: Ileus appears to have recurred vs [place] syndrome Will try enemas again and hold tube feeds
[2018-08-13] MEDS: INSULIN REG, HUMAN 100 UNIT/ML 3 ML VIAL (PYX) SUBCUT SCH ×4 (00:42→17:22)
--- NOTE | 2018-08-13 05:49 | PDOC PROGRESS REPORT ---
Subjective Progress Note for:: 08/13/18 Subjective:: no pains Reason For Visit: ILEUS AND POSSIBLE CYSTITIS APHASIA, DYSPHAGIA, Physical Exam Vital Signs: Temp Pulse Resp BP Pulse Ox 97.9 F 66 16 141/87 H 98 08/12/18 23:25 08/12/18 23:25 08/12/18 23:25 08/12/18 23:25 08/12/18 23:25 Intake & Output 08/11/18 08/12/18 08/13/18 06:59 06:59 06:59 Intake Total 2391 1400 3159 Output Total 2500 1300 900 Balance -732 178 6274 Weight 52.5 kg 52.5 kg 52.5 kg Exam: abd soft and much less distended Good response to enema Results Laboratory Results: 08/12/18 14:50 Sodium 141.1 Potassium 3.4 L Chloride 113 H Carbon Dioxide 22 Anion Gap 6 BUN 5 L Creatinine 0.83 Est GFR ( Amer) > 60 Est GFR (Non-Af Amer) > 60 Glucose 102 Calcium 8.7 Magnesium 1.5 L 08/02/18 08/02/18 12:15 13:34 Troponin I Cancelled < 0.012 Impressions: Chest X-Ray 08/02/18 11:48 IMPRESSION: COPD. Scarring in the lung apices. No acute findings. Acute Abdomen Series 08/03/18 00:00 IMPRESSION: Ileus. Abdomen/Pelvis CT 08/04/18 00:00 IMPRESSION: Persistent ileus KUB X-Ray 08/06/18 00:00 IMPRESSION: 1. As on the previous examination dated 08/05/2018, moderate severe to marked dilatation of the colon. Guidance Fluoroscopy 08/07/18 00:00 IMPRESSION: SUCCESSFUL PLACEMENT OF A 5 FR DUAL LUMEN 40 CM PICC IN THE RIGHT BASILIC VEIN. Interventional Vascular Procedure 08/07/18 00:00 IMPRESSION: SUCCESSFUL PLACEMENT OF A 5 FR DUAL LUMEN 40 CM PICC IN THE RIGHT BASILIC VEIN. PICC Line Insertion 08/07/18 00:00 IMPRESSION: SUCCESSFUL PLACEMENT OF A 5 FR DUAL LUMEN 40 CM PICC IN THE RIGHT BASILIC VEIN. Abdomen X-Ray 08/12/18 17:21 IMPRESSION: Worsening diffuse colonic dilatation which may be due to ileus. Could also represent Ho syndrome. Assessment & Plan - Diagnosis (1) Ileus Is this a current diagnosis for this admission?: Yes (2) Ileus Is this a current diagnosis for this admission?: Yes - Time Time Spent with patient: 15-24 minutes - Plan Summary Plan Summary: May resume tube feeds and increase as tolerated May D/C rectal tube Will sign off
[2018-08-13 06:33] LABS: ABSOLUTE EOSINOPHILS # (AUTO) 0.3 10^3/uL (0.0-0.6); ABSOLUTE LYMPHOCYTES (AUTO) 1.3 10^3/uL (0.5-4.7); ABSOLUTE MONOCYTES (AUTO) 0.5 10^3/uL (0.1-1.4); ABSOLUTE NEUT (AUTO) 1.5 10^3/uL (1.7-8.2); BASOPHILS % (AUTO) 0.4 % (0-2); EOSINOPHILS % (AUTO) 7.8 % (0-6); HEMATOCRIT 31.9 % (37.9-51.0); HEMOGLOBIN 10.8 g/dL (13.5-17.0); LYMPHOCYTES % (AUTO) 36.8 % (13-45); MEAN CORPUSCULAR HEMOGLOBIN 28.6 pg (27.0-33.4); MEAN CORPUSCULAR VOLUME 84 fl (80-97); PLATELET COUNT 206 10^3/uL (150-450); RED BLOOD COUNT 3.79 10^6/uL (4.35-5.55); RED CELL DISTRIBUTION WIDTH 14.4 % (11.5-14.0); TOTAL CELLS COUNTED % (AUTO) 100 %; WHITE BLOOD COUNT 3.5 10^3/uL (4.0-10.5)
[2018-08-13 06:45] LABS: POTASSIUM 3.4 mmol/L (3.6-5.0)
[2018-08-13 07:59] LABS: ANION GAP 7 (5-19); BLOOD UREA NITROGEN 4 mg/dL (7-20); CALCIUM 8.9 mg/dL (8.4-10.2); CARBON DIOXIDE 21 mmol/L (22-30); CHLORIDE 114 mmol/L (98-107); GLUCOSE 96 mg/dL (75-110); POTASSIUM 3.5 mmol/L (3.6-5.0); SODIUM 142.4 mmol/L (137-145)
[2018-08-13] MEDS: BUDESONIDE NEB 0.5 MG/2 ML AMPUL NEB SCH ×2 (08:06→19:45)
[2018-08-13] MEDS: METOPROLOL TARTRATE 25 MG TABLET PEG SCH ×2 (10:23→22:18)
[2018-08-13] MEDS: DOCUSATE SODIUM 100 MG/10 ML UDC PEG SCH ×2 (10:24→17:45)
[2018-08-13] MEDS: POLYETHYLENE GLYCOL 3350 POWDER 17 GM/1 PACKET PEG SCH (10:24)
[2018-08-13] MEDS: ESCITALOPRAM OXALATE 10 MG TABLET PEG SCH (10:25)
[2018-08-13] MEDS: RIVAROXABAN 15 MG TABLET PEG SCH (10:25)
[2018-08-13] MEDS: NORMAL SALINE 10 ML SDV (SCHEDULED) IV SCH ×2 (10:26→22:18)
[2018-08-13] MEDS: POTASSI CL 20 MEQ/50 ML RIDER 20 MEQ/50 ML RTUPB IV SCH ×2 (11:15→15:03)
--- NOTE | 2018-08-13 13:02 | PDOC PROGRESS REPORT ---
Subjective Progress Note for:: 08/13/18 Subjective:: This is a 72 year old male with prior CVAs with residual aphasia and dysphagia, S/P PEG, CAD, vascular dementia and chronic suprapubic catheter (history of severe penile injury from indwelling [place]) who was bought in due to increasing cough and abdominal distention. He had a CT of the abdomen which showed findings consistent with ileus. He is also being followed by surgery. 08/07: He had a few loose, nonbloody stools yesterday but has not had a BM yet overnight. He is passing gas. His abdomen still appears distended on encounter this morning. There is mild direct tenderness on the lower quadrants. No nausea or vomiting. 08/08: He had large, non-bloody, non-watery BM last night. Abdomen still looks distended albeit very slightly improved from yesterday. He does indicate he still has some lower abdominal tenderness. No nausea or vomiting. Discussed with surgery, considering possible Ho syndrome and plan for possible rectal tube placement for decompression. 08/09: He has been having loose stool output on the rectal tube. He appears more comfortable today and does indicate he feels better today. Abdominal distention has significantly improved this morning as well. 08/10: He continues to improve with decent output on the rectal tube. He remains comfortable and abdominal distention has almost resolved. 08/11: Rectal tube has been removed. No BM this morning yet. Denies acute complaint. 08/12: Regular tube feeding has been resumed. He had 3 BM overnight. Anticipating discharge in the next 24 hrs if he continues to tolerate tube feedings well well and BM continue to be consistent. 08/13: Patient's repeat KUB last night showed worsening of ileus. Surgery had rectal tube placed in again last night and tube feeds were held. Clinically, he continues to improve. Upon encounter this morning, abdominal distention and tenderness continue to improve. There is decent stool output on the rectal tube. Discussed with surgery (Dr. Nguyen this morning). Rectal tube will removed today and tube feedings will be restarted. Repeat KUB tomorrow. If ileus or obstructive pattern worsens, possible rectal contrast study or colonic decompression per surgery. Reason For Visit: ILEUS AND POSSIBLE CYSTITIS APHASIA, DYSPHAGIA, Physical Exam Vital Signs: Temp Pulse Resp BP Pulse Ox 98.3 F 77 16 118/69 98 08/13/18 07:18 08/13/18 08:06 08/13/18 08:06 08/13/18 07:18 08/13/18 08:06 Intake & Output 08/12/18 08/13/18 08/14/18 06:59 06:59 06:59 Intake Total 1400 3159 Output Total 1300 900 Balance 100 2259 Weight 115 lb 11.883 oz 115 lb 11.883 oz General appearance: PRESENT: no acute distress, well-developed, well-nourished Head exam: PRESENT: atraumatic, normocephalic Eye exam: PRESENT: conjunctiva pink, EOMI, PERRLA. ABSENT: scleral icterus Ear exam: PRESENT: normal external ear exam Mouth exam: PRESENT: moist, tongue midline Neck exam: ABSENT: carotid bruit, JVD, lymphadenopathy, thyromegaly Respiratory exam: PRESENT: clear to auscultation eric. ABSENT: rales, rhonchi, wheezes Cardiovascular exam: PRESENT: RRR. ABSENT: diastolic murmur, rubs, systolic murmur GI/Abdominal exam: PRESENT: normal bowel sounds, soft. ABSENT: guarding, mass, organolmegaly, rebound, tenderness Rectal exam: PRESENT: deferred Neurological exam: PRESENT: alert, awake, CN II-XII grossly intact. ABSENT: motor sensory deficit - chronic [employer] Results Laboratory Results: 08/13/18 06:05 08/13/18 06:05 08/12/18 08/13/18 08/13/18 14:50 05:30 05:30 WBC Cancelled RBC Cancelled Hgb Cancelled Hct Cancelled MCV Cancelled MCH Cancelled MCHC Cancelled RDW Cancelled Plt Count Cancelled Seg Neutrophils % Cancelled Lymphocytes % Cancelled Monocytes % Cancelled Eosinophils % Cancelled Basophils % Cancelled Absolute Neutrophils Cancelled Absolute Lymphocytes Cancelled Absolute Monocytes Cancelled Absolute Eosinophils Cancelled Absolute Basophils Cancelled Sodium 141.1 Potassium 3.4 L Cancelled Chloride 113 H Carbon Dioxide 22 Anion Gap 6 BUN 5 L Creatinine 0.83 Est GFR ( Amer) > 60 Est GFR (Non-Af Amer) > 60 Glucose 102 Calcium 8.7 Magnesium 1.5 L Cancelled 08/13/18 08/13/18 08/13/18 06:05 06:05 06:05 WBC 3.5 L RBC 3.79 L Hgb 10.8 L Hct 31.9 L MCV 84 MCH 28.6 MCHC 34.0 RDW 14.4 H Plt Count 206 Seg Neutrophils % 42.0 Lymphocytes % 36.8 Monocytes % 13.0 Eosinophils % 7.8 H Basophils % 0.4 Absolute Neutrophils 1.5 L Absolute Lymphocytes 1.3 Absolute Monocytes 0.5 Absolute Eosinophils 0.3 Absolute Basophils 0.0 Sodium 142.4 Potassium 3.4 L 3.5 L Chloride 114 H Carbon Dioxide 21 L Anion Gap 7 BUN 4 L Creatinine 0.84 Est GFR ( Amer) > 60 Est GFR (Non-Af Amer) > 60 Glucose 96 Calcium 8.9 Magnesium 1.8 08/02/18 08/02/18 12:15 13:34 Troponin I Cancelled < 0.012 Impressions: Chest X-Ray 08/02/18 11:48 IMPRESSION: COPD. Scarring in the lung apices. No acute findings. Acute Abdomen Series 08/03/18 00:00 IMPRESSION: Ileus. Abdomen/Pelvis CT 08/04/18 00:00 IMPRESSION: Persistent ileus KUB X-Ray 08/06/18 00:00 IMPRESSION: 1. As on the previous examination dated 08/05/2018, moderate severe to marked dilatation of the colon. Guidance Fluoroscopy 08/07/18 00:00 IMPRESSION: SUCCESSFUL PLACEMENT OF A 5 FR DUAL LUMEN 40 CM PICC IN THE RIGHT BASILIC VEIN. Interventional Vascular Procedure 08/07/18 00:00 IMPRESSION: SUCCESSFUL PLACEMENT OF A 5 FR DUAL LUMEN 40 CM PICC IN THE RIGHT BASILIC VEIN. PICC Line Insertion 08/07/18 00:00 IMPRESSION: SUCCESSFUL PLACEMENT OF A 5 FR DUAL LUMEN 40 CM PICC IN THE RIGHT BASILIC VEIN. Abdomen X-Ray 08/12/18 17:21 IMPRESSION: Worsening diffuse colonic dilatation which may be due to ileus. Could also represent Ho syndrome. Assessment and Plan - Diagnosis (1) Ileus Is this a current diagnosis for this admission?: Yes Plan: 08/07: Hold tube feeds today. Start IV fluids at 50 cc/hr. Surgery following. 08/08: He had large, non-bloody, non-watery BM last night. Abdomen still looks distended albeit very slightly improved from yesterday. He does indicate he still has some lower abdominal tenderness. Discussed with surgery, considering possible Ho syndrome and plan for possible rectal tube placement. Zyprexa d/karl. Will also discontinue ipratropium. 08/09: Possible [place] syndrome. Improving. Zyprexa and ipratropium have been discontinued. Tube feeding may be resumed tomorrow if he continues to improve per surgery. 08/10: Continue to improve. He continues to improve with decent output on the rectal tube. He remains comfortable and abdominal distention has almost resolved. Tube feeding with NS initiated today per surgery. 08/11: Rectal tube has been removed. No BM this morning yet. Denies acute complaint. 08/12: Regular tube feeding has been resumed. He had 3 BM overnight. Anticipating discharge in the next 24 hrs if he continues to tolerate tube feedings well well and BM continue to be consistent. 08/13: Patient's repeat KUB last night showed worsening of ileus. Surgery had rectal tube placed in again last night and tube feeds were held. Clinically, he continues to improve. Upon encounter this morning, abdominal distention and tenderness continue to improve. There is decent stool output on the rectal tube. Discussed with surgery (Dr. Nguyen this morning). Rectal tube will removed today and tube feedings will be restarted. Repeat KUB tomorrow. If ileus or obstructive pattern worsens, possible rectal contrast study or colonic decompression per surgery. (2) COPD exacerbation Is this a current diagnosis for this admission?: Yes Plan: Resolved. (3) Acute cystitis Qualifiers: Hematuria presence: with hematuria Qualified Code(s): N30.01 - Acute cystitis with hematuria Is this a current diagnosis for this admission?: Yes Plan: 08/13: Discontinue ciprofloxacin today. (4) CVA (cerebral vascular accident) Qualifiers: CVA mechanism: other Qualified Code(s): I63.89 - Other cerebral infarction Is this a current diagnosis for this admission?: Yes Plan: History of CVA. (5) Coronary artery disease Qualifiers: Coronary Disease-Associated Artery/Lesion type: unspecified vessel or lesion type [place] vs. transplanted heart: unspecified whether [place] or transplanted heart Associated angina: without angina Qualified Code(s): I25.10 - Atherosclerotic heart disease of [place] coronary artery without angina pectoris Is this a current diagnosis for this admission?: Yes Plan: Stable. Continue home meds. (6) Hypomagnesemia Is this a current diagnosis for this admission?: Yes Plan: Repeat BMP today. (7) Hypokalemia Is this a current diagnosis for this admission?: Yes Plan: 08/13: Potassium today is 3.5. Will replace and will aim for a higher potassium level due to ongoing ileus. - Time Time Spent with patient: 25-34 minutes
[2018-08-13] MEDS: ALBUTEROL SULFATE 0.083% NEB 2.5 MG/3 ML AMPUL NEB PRN (19:45)
[2018-08-14] MEDS: INSULIN REG, HUMAN 100 UNIT/ML 3 ML VIAL (PYX) SUBCUT SCH ×4 (01:37→17:04)
[2018-08-14] MEDS: DEXTROSE 5%-NORMAL SALINE 1,000 ML IV PRN (05:04)
[2018-08-14] MEDS: BUDESONIDE NEB 0.5 MG/2 ML AMPUL NEB SCH ×2 (07:34→19:42)
[2018-08-14] MEDS: NORMAL SALINE 10 ML SDV (SCHEDULED) IV SCH ×2 (09:00→22:58)
[2018-08-14] MEDS: RIVAROXABAN 15 MG TABLET PEG SCH (09:00)
[2018-08-14] MEDS: ESCITALOPRAM OXALATE 10 MG TABLET PEG SCH (09:00)
[2018-08-14] MEDS: METOPROLOL TARTRATE 25 MG TABLET PEG SCH ×2 (09:00→22:58)
[2018-08-14] MEDS: DOCUSATE SODIUM 100 MG/10 ML UDC PEG SCH ×2 (09:00→17:04)
[2018-08-14] MEDS: POLYETHYLENE GLYCOL 3350 POWDER 17 GM/1 PACKET PEG SCH (09:00)
--- NOTE | 2018-08-14 09:11 | RADIOLOGY REPORT (SQ) ---
EXAM DESCRIPTION: KUB/ABDOMEN (SINGLE VIEW) COMPLETED DATE/TIME: 08/14/2018 8:30 am REASON FOR STUDY: reassess ileus COMPARISON: 08/12/2018 NUMBER OF VIEWS: One view. TECHNIQUE: Supine radiographic image of the abdomen acquired. LIMITATIONS: None. FINDINGS: BOWEL GAS PATTERN: Some improvement in the appearance of the abdomen since the prior exam ination. Interval resolution of the colonic distention involving the right side of the colon and sign ificant decrease in the sigmoid colon dilatation. Persistent decreasing dilatation of the transverse colon. The transverse colon measures approximately 8.3 cm in AP diameter, compared to 9.0 cm on the prior study. CALCIFICATIONS: No suspicious calcifications. SOFT TISSUES: No gross mass or suggestion of organomegaly. HARDWARE: Gastrostomy tube and suprapubic catheter. BONES: No acute fracture. No worrisome bone lesions. OTHER: No other significant finding. IMPRESSION: 1. Since the previous examination dated 08/12/2018, improvement in the appearance of the colon with interval resolution of right side colonic dilatation and significant decrease in the sigm oid colon dilatation.. Persistent but decreasing dilatation of the transverse colon. TECHNICAL DOCUMENTATION: JOB ID: [id number] [employer]- All Rights Reserved Reading location - IP/workstation name: [email or web address]
[2018-08-14 10:24] LABS: ANION GAP 8 (5-19); BLOOD UREA NITROGEN 5 mg/dL (7-20); CALCIUM 9.2 mg/dL (8.4-10.2); CARBON DIOXIDE 24 mmol/L (22-30); CHLORIDE 111 mmol/L (98-107); GLUCOSE 102 mg/dL (75-110); POTASSIUM 3.9 mmol/L (3.6-5.0); SODIUM 142.6 mmol/L (137-145)
[2018-08-15] MEDS: INSULIN REG, HUMAN 100 UNIT/ML 3 ML VIAL (PYX) SUBCUT SCH ×4 (00:28→17:17)
[2018-08-15 07:12] LABS: ANION GAP 7 (5-19); BLOOD UREA NITROGEN 6 mg/dL (7-20); CALCIUM 9.5 mg/dL (8.4-10.2); CARBON DIOXIDE 28 mmol/L (22-30); CHLORIDE 110 mmol/L (98-107); GLUCOSE 94 mg/dL (75-110); POTASSIUM 3.6 mmol/L (3.6-5.0); SODIUM 144.9 mmol/L (137-145)
[2018-08-15] MEDS: BUDESONIDE NEB 0.5 MG/2 ML AMPUL NEB SCH ×2 (07:48→21:23)
[2018-08-15] MEDS: DOCUSATE SODIUM 100 MG/10 ML UDC PEG SCH ×2 (09:11→17:17)
[2018-08-15] MEDS: ESCITALOPRAM OXALATE 10 MG TABLET PEG SCH (09:36)
[2018-08-15] MEDS: POLYETHYLENE GLYCOL 3350 POWDER 17 GM/1 PACKET PEG SCH (09:36)
[2018-08-15] MEDS: METOPROLOL TARTRATE 25 MG TABLET PEG SCH ×2 (09:36→22:45)
[2018-08-15] MEDS: RIVAROXABAN 15 MG TABLET PEG SCH (09:36)
[2018-08-15] MEDS: NORMAL SALINE 10 ML SDV (SCHEDULED) IV SCH ×2 (09:51→22:46)
[2018-08-15 11:17] LABS: ABSOLUTE EOSINOPHILS # (AUTO) 0.3 10^3/uL (0.0-0.6); ABSOLUTE LYMPHOCYTES (AUTO) 1.1 10^3/uL (0.5-4.7); ABSOLUTE MONOCYTES (AUTO) 0.3 10^3/uL (0.1-1.4); ABSOLUTE NEUT (AUTO) 2.4 10^3/uL (1.7-8.2); BASOPHILS % (AUTO) 0.6 % (0-2); EOSINOPHILS % (AUTO) 6.7 % (0-6); HEMATOCRIT 38.2 % (37.9-51.0); HEMOGLOBIN 12.7 g/dL (13.5-17.0); MEAN CORPUSCULAR HEMOGLOBIN 27.6 pg (27.0-33.4); MEAN CORPUSCULAR HGB CONC 33.1 g/dL (32.0-36.0); MEAN CORPUSCULAR VOLUME 84 fl (80-97); MONOCYTES % (AUTO) 7.2 % (3-13); PLATELET COUNT 262 10^3/uL (150-450); RED BLOOD COUNT 4.58 10^6/uL (4.35-5.55); RED CELL DISTRIBUTION WIDTH 14.5 % (11.5-14.0); SEGMENTED NEUTROPHILS % (AUTO) 57.5 % (42-78); TOTAL CELLS COUNTED % (AUTO) 100 %; WHITE BLOOD COUNT 4.1 10^3/uL (4.0-10.5)
--- NOTE | 2018-08-15 21:14 | PDOC PROGRESS REPORT ---
Subjective Progress Note for:: 08/14/18 Subjective:: Still with distended abdomen but staff reports passing stool and air. This especially occurs when they move him for bed baths and repositioning. Reason For Visit: ILEUS AND POSSIBLE CYSTITIS APHASIA, DYSPHAGIA, Physical Exam Vital Signs: Temp Pulse Resp BP Pulse Ox 97.7 F 62 16 126/65 H 94 08/14/18 07:58 08/14/18 07:58 08/14/18 07:58 08/14/18 07:58 08/14/18 07:58 Intake & Output 08/13/18 08/14/18 08/15/18 06:59 06:59 06:59 Intake Total 3159 813 30 Output Total 900 4355 400 Balance 5424 -330 -051 Weight 52.5 kg 53.4 kg General appearance: PRESENT: no acute distress, cooperative, well-developed Head exam: PRESENT: atraumatic, normocephalic Respiratory exam: PRESENT: decreased breath sounds - Likely due to decreased inspiratory phase, symmetrical, unlabored. ABSENT: rales, rhonchi, wheezes Cardiovascular exam: PRESENT: RRR, +S1, +S2 GI/Abdominal exam: PRESENT: distended, hypoactive bowel sounds, soft, other - Tympanitic. ABSENT: tenderness Extremities exam: ABSENT: pedal edema Neurological exam: PRESENT: aphasic Psychiatric exam: PRESENT: appropriate affect. ABSENT: agitated, anxious Focused psych exam: ABSENT: delusional, restlessness Results Laboratory Results: 08/13/18 06:05 08/14/18 09:00 08/14/18 09:00 Sodium 142.6 Potassium 3.9 Chloride 111 H Carbon Dioxide 24 Anion Gap 8 BUN 5 L Creatinine 0.80 Est GFR ( Amer) > 60 Est GFR (Non-Af Amer) > 60 Glucose 102 Calcium 9.2 Magnesium 1.7 08/02/18 08/02/18 12:15 13:34 Troponin I Cancelled < 0.012 Impressions: Chest X-Ray 08/02/18 11:48 IMPRESSION: COPD. Scarring in the lung apices. No acute findings. Acute Abdomen Series 08/03/18 00:00 IMPRESSION: Ileus. Abdomen/Pelvis CT 08/04/18 00:00 IMPRESSION: Persistent ileus Guidance Fluoroscopy 08/07/18 00:00 IMPRESSION: SUCCESSFUL PLACEMENT OF A 5 FR DUAL LUMEN 40 CM PICC IN THE RIGHT BASILIC VEIN. Interventional Vascular Procedure 08/07/18 00:00 IMPRESSION: SUCCESSFUL PLACEMENT OF A 5 FR DUAL LUMEN 40 CM PICC IN THE RIGHT BASILIC VEIN. PICC Line Insertion 08/07/18 00:00 IMPRESSION: SUCCESSFUL PLACEMENT OF A 5 FR DUAL LUMEN 40 CM PICC IN THE RIGHT BASILIC VEIN. Abdomen X-Ray 08/12/18 17:21 IMPRESSION: Worsening diffuse colonic dilatation which may be due to ileus. Could also represent Ho syndrome. KUB X-Ray 08/14/18 07:00 IMPRESSION: 1. Since the previous examination dated 08/12/2018, improvement in the appearance of the colon with interval resolution of right side colonic dilatation and significant decrease in the sigmoid colon dilatation.. Persistent but decreasing dilatation of the transverse colon. Assessment and Plan - Diagnosis (1) Abdominal pain Qualifiers: Abdominal location: lower abdomen, unspecified Qualified Code(s): R10.30 - Lower abdominal pain, unspecified Is this a current diagnosis for this admission?: Yes Plan: August 14, 2018-patient has a distended abdomen. 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 He is starting to pass gas and stool. We will treat conservatively and continue to monitor. (2) Acute cystitis Qualifiers: Hematuria presence: with hematuria Qualified Code(s): N30.01 - Acute cystitis with hematuria Is this a current diagnosis for this admission?: Yes Plan: Resolved (3) Ileus Is this a current diagnosis for this admission?: Yes Plan: Suspected Ho syndrome. Treat conservatively. Appears to be slowly resolving. (4) Abdominal distention Is this a current diagnosis for this admission?: Yes Plan: Secondary to above. Continue current treatment plan. (5) Constipation Qualifiers: Constipation type: slow transit constipation Qualified Code(s): K59.01 - Slow transit constipation Is this a current diagnosis for this admission?: Yes Plan: Staff reports that he is starting to move his bowels. Continue to monitor. (6) Tachycardia Is this a current diagnosis for this admission?: Yes Plan: Resolved (7) COPD exacerbation Is this a current diagnosis for this admission?: Yes Plan: Resolved (8) Aphasia Is this a current diagnosis for this admission?: Yes Plan: Permanent condition from previous strokes (9) Dysphagia Qualifiers: Dysphagia type: unspecified Qualified Code(s): R13.10 - Dysphagia, unspecified Is this a current diagnosis for this admission?: Yes Plan: Continues to tolerate tube feeds. No residuals despite abdominal distention. (10) Coronary artery disease Qualifiers: Coronary Disease-Associated Artery/Lesion type: [place] artery [place] vs. transplanted heart: [place] heart Associated angina: without angina Qualified Code(s): I25.10 - Atherosclerotic heart disease of [place] coronary artery w ithout angina pectoris Is this a current diagnosis for this admission?: Yes Plan: Stable. Currently asymptomatic. Continue current treatment regimen. (11) Chronic anticoagulation Is this a current diagnosis for this admission?: Yes Plan: Continue Xarelto. - Time Time Spent with patient: 15-24 minutes Medications reviewed and adjusted accordingly: Yes Anticipated discharge: Home
--- NOTE | 2018-08-15 21:19 | PDOC PROGRESS REPORT ---
Subjective Progress Note for:: 08/15/18 Subjective:: Slightly less distended abdomen. It is slightly softer. The patient is in fact sitting reading the newspaper and appears quite comfortable. Reason For Visit: ILEUS AND POSSIBLE CYSTITIS APHASIA, DYSPHAGIA, Physical Exam Vital Signs: Temp Pulse Resp BP Pulse Ox 97.3 F 62 17 152/57 H 98 08/15/18 08:00 08/15/18 08:00 08/15/18 08:00 08/15/18 08:00 08/15/18 08:00 Intake & Output 08/14/18 08/15/18 08/16/18 06:59 06:59 06:59 Intake Total 813 1617 Output Total 1475 1150 Balance -662 467 Weight 53.4 kg 52.1 kg General appearance: PRESENT: no acute distress, cooperative, well-developed Head exam: PRESENT: atraumatic, normocephalic Ear exam: PRESENT: normal external ear exam Teeth exam: PRESENT: poor dentation Respiratory exam: PRESENT: clear to auscultation eric, symmetrical, unlabored. ABSENT: rales, rhonchi, wheezes Cardiovascular exam: PRESENT: RRR, +S1, +S2 GI/Abdominal exam: PRESENT: distended - Less distended than yesterday, hypoactive bowel sounds, soft - Softer than yesterday, other - PEG tube in place. ABSENT: tenderness Rectal exam: PRESENT: deferred Gentrourinary exam: PRESENT: indwelling catheter - Suprapubic Extremities exam: ABSENT: pedal edema Neurological exam: PRESENT: alert, awake, aphasic Psychiatric exam: PRESENT: appropriate affect. ABSENT: agitated, anxious Focused psych exam: ABSENT: delusional, restlessness Results Laboratory Results: 08/15/18 10:27 08/15/18 06:17 08/15/18 08/15/18 08/15/18 06:17 06:17 10:27 WBC Cancelled 4.1 RBC Cancelled 4.58 Hgb Cancelled 12.7 L Hct Cancelled 38.2 MCV Cancelled 84 MCH Cancelled 27.6 MCHC Cancelled 33.1 RDW Cancelled 14.5 H Plt Count Cancelled 262 Seg Neutrophils % Cancelled 57.5 Lymphocytes % Cancelled 28.0 Monocytes % Cancelled 7.2 Eosinophils % Cancelled 6.7 H Basophils % Cancelled 0.6 Absolute Neutrophils Cancelled 2.4 Absolute Lymphocytes Cancelled 1.1 Absolute Monocytes Cancelled 0.3 Absolute Eosinophils Cancelled 0.3 Absolute Basophils Cancelled 0.0 Sodium 144.9 Potassium 3.6 Chloride 110 H Carbon Dioxide 28 Anion Gap 7 BUN 6 L Creatinine 0.79 Est GFR ( Amer) > 60 Est GFR (Non-Af Amer) > 60 Glucose 94 Calcium 9.5 08/02/18 08/02/18 12:15 13:34 Troponin I Cancelled < 0.012 Impressions: Chest X-Ray 08/02/18 11:48 IMPRESSION: COPD. Scarring in the lung apices. No acute findings. Acute Abdomen Series 08/03/18 00:00 IMPRESSION: Ileus. Abdomen/Pelvis CT 08/04/18 00:00 IMPRESSION: Persistent ileus Guidance Fluoroscopy 08/07/18 00:00 IMPRESSION: SUCCESSFUL PLACEMENT OF A 5 FR DUAL LUMEN 40 CM PICC IN THE RIGHT BASILIC VEIN. Interventional Vascular Procedure 08/07/18 00:00 IMPRESSION: SUCCESSFUL PLACEMENT OF A 5 FR DUAL LUMEN 40 CM PICC IN THE RIGHT BASILIC VEIN. PICC Line Insertion 08/07/18 00:00 IMPRESSION: SUCCESSFUL PLACEMENT OF A 5 FR DUAL LUMEN 40 CM PICC IN THE RIGHT BASILIC VEIN. Abdomen X-Ray 08/12/18 17:21 IMPRESSION: Worsening diffuse colonic dilatation which may be due to ileus. Could also represent Ho syndrome. KUB X-Ray 08/14/18 07:00 IMPRESSION: 1. Since the previous examination dated 08/12/2018, improvement in the appearance of the colon with interval resolution of right side colonic dilatation and significant decrease in the sigmoid colon dilatation.. Persistent but decreasing dilatation of the transverse colon. Assessment and Plan - Diagnosis (1) Abdominal pain Qualifiers: Abdominal location: lower abdomen, unspecified Qualified Code(s): R10.30 - Lower abdominal pain, unspecified Is this a current diagnosis for this admission?: Yes Plan: August 14, 2018-patient has a distended abdomen. 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 He is starting to pass gas and stool. We will treat conservatively and continue to monitor. August 15, 2018-the patient is not complaining of discomfort at this time. Continue current regimen. (2) Acute cystitis Qualifiers: Hematuria presence: with hematuria Qualified Code(s): N30.01 - Acute cystitis with hematuria Is this a current diagnosis for this admission?: Yes Plan: Resolved (3) Ileus Is this a current diagnosis for this admission?: Yes Plan: Suspected Ho syndrome. Treat conservatively. Appears to be slowly resolving. August 15, 2018-the abdomen is softer. Patient is passing gas. He still has distended stomach. The staff reports that on the check residuals they get a lot of air out of his abdomen. I am going to trial the PEG tube to low wall suction for approximately 6 hours to see if we can decompress the bowel more. We will resume tube feeds after the trial of suction. (4) Abdominal distention Is this a current diagnosis for this admission?: Yes Plan: Secondary to above. Continue current treatment plan. August 15, 2018-improved from yesterday. (5) Constipation Qualifiers: Constipation type: slow transit constipation Qualified Code(s): K59.01 - Slow transit constipation Is this a current diagnosis for this admission?: Yes Plan: Staff reports that he is starting to move his bowels. Continue to monitor. August 15, 2018-patient continues to pass gas and stool. (6) Tachycardia Is this a current diagnosis for this admission?: Yes Plan: Resolved (7) COPD exacerbation Is this a current diagnosis for this admission?: Yes Plan: Resolved (8) Aphasia Is this a current diagnosis for this admission?: Yes Plan: Permanent condition from previous strokes (9) Dysphagia Qualifiers: Dysphagia type: unspecified Qualified Code(s): R13.10 - Dysphagia, unspecified Is this a current diagnosis for this admission?: Yes Plan: Continues to tolerate tube feeds. No residuals despite abdominal distention. August 15, 2018-as noted above to do a trial of low wall suction to decompress from above. We will hold the tube feeds for that time. Otherwise he has been tolerating his tube feeds without difficulty. (10) Coronary artery disease Qualifiers: Coronary Disease-Associated Artery/Lesion type: [place] artery [place] vs. transplanted heart: [place] heart Associated angina: without angina Qualified Code(s): I25.10 - Atherosclerotic heart disease of [place] coronary artery without angina pectoris Is this a current diagnosis for this admission?: Yes Plan: Stable. Currently asymptomatic. Continue current treatment regimen. (11) Chronic anticoagulation Is this a current diagnosis for this admission?: Yes Plan: Continue Xarelto. - Time Time Spent with patient: 15-24 minutes Medications reviewed and adjusted accordingly: Yes - Plan Summary Plan Summary: I had a long discussion with the patient's sister last night. She has been disappointed with some of the half-way facilities locally but it is difficult for her to travel. It is getting very hard for her to continue to take care of her brother at home. She is going to reassess utilizing a local skilled facility as her brother requires a significant amount of care.
[2018-08-15] MEDS ORDERED: ALTEPLASE INJ 2 MG VIAL (CATH CLEARANCE) INJ ONE ×2 (23:45)
[2018-08-16] MEDS ORDERED: ALTEPLASE INJ 2 MG VIAL (CATH CLEARANCE) ONE (01:29)
[2018-08-16] MEDS: DEXTROSE 5%-NORMAL SALINE 1,000 ML IV PRN ×2 (02:36→23:20)
[2018-08-16] MEDS: INSULIN REG, HUMAN 100 UNIT/ML 3 ML VIAL (PYX) SUBCUT SCH ×4 (06:00→17:39)
[2018-08-16] MEDS: BUDESONIDE NEB 0.5 MG/2 ML AMPUL NEB SCH (08:54)
[2018-08-16] MEDS ORDERED: ALTEPLASE INJ 2 MG VIAL (CATH CLEARANCE) INJ ONE (09:00)
[2018-08-16] MEDS: DOCUSATE SODIUM 100 MG/10 ML UDC PEG SCH ×2 (12:57→17:39)
[2018-08-16] MEDS: POLYETHYLENE GLYCOL 3350 POWDER 17 GM/1 PACKET PEG SCH (12:58)
[2018-08-16] MEDS: NORMAL SALINE 10 ML SDV (SCHEDULED) IV SCH ×2 (12:59→23:21)
[2018-08-16] MEDS: ESCITALOPRAM OXALATE 10 MG TABLET PEG SCH (12:59)
[2018-08-16] MEDS: RIVAROXABAN 15 MG TABLET PEG SCH (12:59)
[2018-08-16] MEDS: METOPROLOL TARTRATE 25 MG TABLET PEG SCH ×2 (12:59→23:21)
--- NOTE | 2018-08-16 21:04 | PDOC PROGRESS REPORT ---
Subjective Progress Note for:: 08/16/18 Subjective:: Nursing reports that the patient has had significant quantities of liquid stool and gas today Reason For Visit: ILEUS AND POSSIBLE CYSTITIS APHASIA, DYSPHAGIA, Physical Exam Vital Signs: Temp Pulse Resp BP Pulse Ox 97.5 F 70 17 161/84 H 97 08/16/18 19:48 08/16/18 19:48 08/16/18 19:48 08/16/18 19:48 08/16/18 19:48 Intake & Output 08/15/18 08/16/18 08/17/18 06:59 06:59 06:59 Intake Total 1617 395 0 Output Total 1150 2375 Balance 467 -1980 0 Weight 52.1 kg 51.8 kg General appearance: PRESENT: no acute distress, cooperative, thin Head exam: PRESENT: normocephalic Respiratory exam: PRESENT: clear to auscultation eric, symmetrical, unlabored. ABSENT: accessory muscle use, rhonchi, tachypnea, wheezes Cardiovascular exam: PRESENT: RRR, +S1, +S2 GI/Abdominal exam: PRESENT: distended, soft, other - Less tympanitic. ABSENT: tenderness Rectal exam: PRESENT: deferred Extremities exam: ABSENT: joint swelling, pedal edema Neurological exam: PRESENT: alert, awake, aphasic Psychiatric exam: PRESENT: appropriate affect. ABSENT: agitated, anxious Focused psych exam: ABSENT: restlessness Results Laboratory Results: 08/15/18 10:27 08/15/18 06:17 08/02/18 08/02/18 12:15 13:34 Troponin I Cancelled < 0.012 Impressions: Chest X-Ray 08/02/18 11:48 IMPRESSION: COPD. Scarring in the lung apices. No acute findings. Acute Abdomen Series 08/03/18 00:00 IMPRESSION: Ileus. Abdomen/Pelvis CT 08/04/18 00:00 IMPRESSION: Persistent ileus Guidance Fluoroscopy 08/07/18 00:00 IMPRESSION: SUCCESSFUL PLACEMENT OF A 5 FR DUAL LUMEN 40 CM PICC IN THE RIGHT BASILIC VEIN. Interventional Vascular Procedure 08/07/18 00:00 IMPRESSION: SUCCESSFUL PLACEMENT OF A 5 FR DUAL LUMEN 40 CM PICC IN THE RIGHT BASILIC VEIN. PICC Line Insertion 08/07/18 00:00 IMPRESSION: SUCCESSFUL PLACEMENT OF A 5 FR DUAL LUMEN 40 CM PICC IN THE RIGHT BASILIC VEIN. Abdomen X-Ray 08/12/18 17:21 IMPRESSION: Worsening diffuse colonic dilatation which may be due to ileus. Could also represent Ho syndrome. KUB X-Ray 08/14/18 07:00 IMPRESSION: 1. Since the previous examination dated 08/12/2018, improvement in the appearance of the colon with interval resolution of right side colonic dilatation and significant decrease in the sigmoid colon dilatation.. Persistent but decreasing dilatation of the transverse colon. Assessment and Plan - Diagnosis (1) Abdominal pain Qualifiers: Abdominal location: lower abdomen, unspecified Qualified Code(s): R10.30 - Lower abdominal pain, unspecified Is this a current diagnosis for this admission?: Yes Plan: Patient has had significant evacuation of his bowels today. This has led to less distention and no tenderness. (2) Acute cystitis Qualifiers: Hematuria presence: with hematuria Qualified Code(s): N30.01 - Acute cystitis with hematuria Is this a current diagnosis for this admission?: Yes Plan: Resolved (3) Ileus Is this a current diagnosis for this admission?: Yes Plan: Suspected [place] syndrome. Treat conservatively. Appears to be slowly resolving. August 15, 2018-the abdomen is softer. Patient is passing gas. He still has distended stomach. The staff reports that on the check residuals they get a lot of air out of his abdomen. I am going to trial the PEG tube to low wall suction for approximately 6 hours to see if we can decompress the bowel more. We will resume tube feeds after the trial of suction. 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 Staff reports large amounts of liquid stool and gas. Ileus is resolving. (4) Abdominal distention Is this a current diagnosis for this admission?: Yes Plan: Continues to improve (5) Constipation Qualifiers: Constipation type: slow transit constipation Qualified Code(s): K59.01 - Slow transit constipation Is this a current diagnosis for this admission?: Yes Plan: Resolved (6) Tachycardia Is this a current diagnosis for this admission?: Yes Plan: Resolved (7) COPD exacerbation Is this a current diagnosis for this admission?: Yes Plan: Resolved (8) Aphasia Is this a current diagnosis for this admission?: Yes Plan: Permanent condition from previous strokes (9) Dysphagia Qualifiers: Dysphagia type: unspecified Qualified Code(s): R13.10 - Dysphagia, unspecified Is this a current diagnosis for this admission?: Yes Plan: Continue tube feeds (10) Coronary artery disease Qualifiers: Coronary Disease-Associated Artery/Lesion type: [place] artery [place] vs. transplanted heart: [place] heart Associated angina: without angina Qualified Code(s): I25.10 - Atherosclerotic heart disease of [place] coronary artery without angina pectoris Is this a current diagnosis for this admission?: Yes Plan: Stable. Currently asymptomatic. Continue current treatment regimen. (11) Chronic anticoagulation Is this a current diagnosis for this admission?: Yes Plan: Continue Xarelto. - Time Time Spent with patient: 15-24 minutes Medications reviewed and adjusted accordingly: Yes Anticipated discharge: SNF - Plan Summary Plan Summary: I had another discussion with the patient's sister today. This time she was at the bedside. Because of her experiences with certain long-term facilities locally I have suggested she explore [facility]. I provided the phone number for her as well as the address. She will call today and speak to someone in the admissions and reported to me that she will drive down for a visit tomorrow. If this goes well we should be able to transfer the patient to a skilled facility for what will likely be long-term care.
[2018-08-17] MEDS: INSULIN REG, HUMAN 100 UNIT/ML 3 ML VIAL (PYX) SUBCUT SCH ×5 (06:00→23:45)
[2018-08-17] MEDS: DOCUSATE SODIUM 100 MG/10 ML UDC PEG SCH ×2 (10:19→18:21)
[2018-08-17] MEDS: METOPROLOL TARTRATE 25 MG TABLET PEG SCH ×2 (10:20→22:35)
[2018-08-17] MEDS: ESCITALOPRAM OXALATE 10 MG TABLET PEG SCH (10:20)
[2018-08-17] MEDS: POLYETHYLENE GLYCOL 3350 POWDER 17 GM/1 PACKET PEG SCH (10:20)
[2018-08-17] MEDS: RIVAROXABAN 15 MG TABLET PEG SCH (10:20)
[2018-08-17] MEDS: NORMAL SALINE 10 ML SDV (SCHEDULED) IV SCH ×2 (10:21→22:35)
--- NOTE | 2018-08-17 14:55 | PDOC PROGRESS REPORT ---
Subjective Progress Note for:: 08/17/18 Subjective:: Feeling good today. He walked with physical therapy. There is a new bullous lesion extending from the inferior aspect of his PEG tube Reason For Visit: ILEUS AND POSSIBLE CYSTITIS APHASIA, DYSPHAGIA, Physical Exam Vital Signs: Temp Pulse Resp BP Pulse Ox 97.4 F 63 16 162/92 H 99 08/17/18 12:10 08/17/18 12:10 08/17/18 12:10 08/17/18 12:10 08/17/18 12:10 Intake & Output 08/16/18 08/17/18 08/18/18 06:59 06:59 06:59 Intake Total 395 1000 Output Total 2375 725 Balance -1980 275 Weight 51.8 kg 52.3 kg General appearance: PRESENT: no acute distress, cooperative, well-developed Head exam: PRESENT: normocephalic Ear exam: PRESENT: normal external ear exam Teeth exam: PRESENT: poor dentation Respiratory exam: PRESENT: symmetrical, unlabored, wheezes - Faint expiratory wheeze. ABSENT: rales, rhonchi, tachypnea Cardiovascular exam: PRESENT: RRR, +S1, +S2 GI/Abdominal exam: PRESENT: normal bowel sounds, soft, other - PEG tube in place. ABSENT: distended, tenderness Gentrourinary exam: PRESENT: indwelling catheter - Suprapubic catheter Extremities exam: ABSENT: pedal edema Neurological exam: PRESENT: alert, awake, oriented to person - Responds to his name, oriented to place, aphasic Psychiatric exam: PRESENT: appropriate affect. ABSENT: agitated, anxious Focused psych exam: ABSENT: delusional, restlessness Skin exam: PRESENT: other - Extending from the inferior aspect of the suprapubic tube site is a bullous lesion approximately 4 to 5 cm across. The fluid is clear. There is no significant surrounding erythema. Blister is intact. It is not tender. Results Laboratory Results: 08/15/18 10:27 08/15/18 06:17 08/02/18 08/02/18 12:15 13:34 Troponin I Cancelled < 0.012 Impressions: Chest X-Ray 08/02/18 11:48 IMPRESSION: COPD. Scarring in the lung apices. No acute findings. Acute Abdomen Series 08/03/18 00:00 IMPRESSION: Ileus. Abdomen/Pelvis CT 08/04/18 00:00 IMPRESSION: Persistent ileus Guidance Fluoroscopy 08/07/18 00:00 IMPRESSION: SUCCESSFUL PLACEMENT OF A 5 FR DUAL LUMEN 40 CM PICC IN THE RIGHT BASILIC VEIN. Interventional Vascular Procedure 08/07/18 00:00 IMPRESSION: SUCCESSFUL PLACEMENT OF A 5 FR DUAL LUMEN 40 CM PICC IN THE RIGHT BASILIC VEIN. PICC Line Insertion 08/07/18 00:00 IMPRESSION: SUCCESSFUL PLACEMENT OF A 5 FR DUAL LUMEN 40 CM PICC IN THE RIGHT BASILIC VEIN. Abdomen X-Ray 08/12/18 17:21 IMPRESSION: Worsening diffuse colonic dilatation which may be due to ileus. Could also represent [place] syndrome. KUB X-Ray 08/14/18 07:00 IMPRESSION: 1. Since the previous examination dated 08/12/2018, improvement in the appearance of the colon with interval resolution of right side colonic dilatation and significant decrease in the sigmoid colon dilatation.. Pers istent but decreasing dilatation of the transverse colon. Assessment and Plan - Diagnosis (1) Abdominal pain Qualifiers: Abdominal location: lower abdomen, unspecified Qualified Code(s): R10.30 - Lower abdominal pain, unspecified Is this a current diagnosis for this admission?: Yes Plan: No abdominal tenderness. Patient indicates no significant pain. Large amount of stool passed yesterday. Acute abdominal pain resolved. (2) Acute cystitis Qualifiers: Hematuria presence: with hematuria Qualified Code(s): N30.01 - Acute cystitis with hematuria Is this a current diagnosis for this admission?: Yes Plan: Treated and resolved (3) Ileus Is this a current diagnosis for this admission?: Yes Plan: Positive bowel sounds and bowel movements. It appears the ileus has resolved. Continue to monitor. (4) Abdominal distention Is this a current diagnosis for this admission?: Yes Plan: Significantly improved. (5) Constipation Qualifiers: Constipation type: slow transit constipation Qualified Code(s): K59.01 - Slow transit constipation Is this a current diagnosis for this admission?: Yes Plan: Resolved (6) Tachycardia Is this a current diagnosis for this admission?: Yes Plan: Resolved (7) COPD exacerbation Is this a current diagnosis for this admission?: Yes Plan: Excellent oxygenation on room air. Continue current treatment plan. (8) Aphasia Is this a current diagnosis for this admission?: Yes Plan: Chronic long-standing problem. He also has dysphagia and requires tube feeds. (9) Dysphagia Qualifiers: Dysphagia type: unspecified Qualified Code(s): R13.10 - Dysphagia, unspecified Is this a current diagnosis for this admission?: Yes Plan: As above (10) Coronary artery disease Qualifiers: Coronary Disease-Associated Artery/Lesion type: [place] artery [place] vs. transplanted heart: [place] heart Associated angina: without angina Qualified Code(s): I25.10 - Atherosclerotic heart disease of [place] coronary artery without angina pectoris Is this a current diagnosis for this admission?: Yes Plan: Currently without acute coronary symptoms. Continue current regimen. (11) Chronic anticoagulation Is this a current diagnosis for this admission?: Yes Plan: Continue Xarelto. (12) Hypertension Qualifiers: Hypertension type: essential hypertension Qualified Code(s): I10 - Essential (primary) hypertension Is this a current diagnosis for this admission?: Yes Plan: The patient is back on metoprolol but his blood pressure still elevated. I am going to add low-dose losartan. 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 It is possible that it could be related to adhesives. He could be some type of irritation from the PEG tube. It does not look infected. I am going to treat this conservatively. We will keep it covered. When it does pop we will observe the fluid and continue with simple dressings. - Time Time Spent with patient: 15-24 minutes Medications reviewed and adjusted accordingly: Yes Anticipated discharge: SNF
[2018-08-17] MEDS: DEXTROSE 5%-NORMAL SALINE 1,000 ML IV PRN (22:39)
[2018-08-18] MEDS: INSULIN REG, HUMAN 100 UNIT/ML 3 ML VIAL (PYX) SUBCUT SCH ×3 (07:24→19:22)
[2018-08-18] MEDS: DOCUSATE SODIUM 100 MG/10 ML UDC PEG SCH ×2 (10:09→17:43)
[2018-08-18] MEDS: POLYETHYLENE GLYCOL 3350 POWDER 17 GM/1 PACKET PEG SCH (10:10)
[2018-08-18] MEDS: LOSARTAN POTASSIUM 25 MG TABLET NG SCH (10:10)
[2018-08-18] MEDS: METOPROLOL TARTRATE 25 MG TABLET PEG SCH ×2 (10:10→22:41)
[2018-08-18] MEDS: ESCITALOPRAM OXALATE 10 MG TABLET PEG SCH (10:10)
[2018-08-18] MEDS: NORMAL SALINE 10 ML SDV (SCHEDULED) IV SCH ×2 (10:11→22:41)
[2018-08-18] MEDS: RIVAROXABAN 15 MG TABLET PEG SCH (10:11)
--- NOTE | 2018-08-18 19:28 | PDOC PROGRESS REPORT ---
Subjective Progress Note for:: 08/18/18 Subjective:: The patient is sitting up in bed. He appears comfortable. He is in no distress. Reason For Visit: ILEUS AND POSSIBLE CYSTITIS APHASIA, DYSPHAGIA, Physical Exam Vital Signs: Temp Pulse Resp BP Pulse Ox 97.8 F 78 16 145/87 H 96 08/18/18 08:00 08/18/18 08:00 08/18/18 08:00 08/18/18 08:00 08/18/18 08:00 Intake & Output 08/17/18 08/18/18 08/19/18 06:59 06:59 06:59 Intake Total 1000 1000 Output Total 725 1000 Balance 275 0 Weight 52.3 kg General appearance: PRESENT: no acute distress, cooperative, thin, well- developed Head exam: PRESENT: atraumatic, normocephalic Teeth exam: PRESENT: poor dentation Respiratory exam: PRESENT: clear to auscultation eric, symmetrical, unlabored. ABSENT: accessory muscle use, rales, rhonchi, tachypnea, wheezes Cardiovascular exam: PRESENT: RRR, +S1, +S2 GI/Abdominal exam: PRESENT: normal bowel sounds, soft, other - PEG tube and suprapubic catheter in place. ABSENT: distended, tenderness Rectal exam: PRESENT: other - Thin brown stool Gentrourinary exam: PRESENT: indwelling catheter - Suprapubic Extremities exam: ABSENT: pedal edema Neurological exam: PRESENT: alert, awake, oriented to person, oriented to place, aphasic Psychiatric exam: PRESENT: appropriate affect, normal mood. ABSENT: agitated, anxious Focused psych exam: ABSENT: delusional, restlessness Results Laboratory Results: 08/15/18 10:27 08/15/18 06:17 08/02/18 08/02/18 12:15 13:34 Troponin I Cancelled < 0.012 Impressions: Chest X-Ray 08/02/18 11:48 IMPRESSION: COPD. Scarring in the lung apices. No acute findings. Acute Abdomen Series 08/03/18 00:00 IMPRESSION: Ileus. Abdomen/Pelvis CT 08/04/18 00:00 IMPRESSION: Persistent ileus Guidance Fluoroscopy 08/07/18 00:00 IMPRESSION: SUCCESSFUL PLACEMENT OF A 5 FR DUAL LUMEN 40 CM PICC IN THE RIGHT BASILIC VEIN. Interventional Vascular Procedure 08/07/18 00:00 IMPRESSION: SUCCESSFUL PLACEMENT OF A 5 FR DUAL LUMEN 40 CM PICC IN THE RIGHT BASILIC VEIN. PICC Line Insertion 08/07/18 00:00 IMPRESSION: SUCCESSFUL PLACEMENT OF A 5 FR DUAL LUMEN 40 CM PICC IN THE RIGHT BASILIC VEIN. Abdomen X-Ray 08/12/18 17:21 IMPRESSION: Worsening diffuse colonic dilatation which may be due to ileus. Could also represent Ho syndrome. KUB X-Ray 08/14/18 07:00 IMPRESSION: 1. Since the previous examination dated 08/12/2018, improvement in the appearance of the colon with interval resolution of right side colonic dilatation and significant decrease in the sigmoid colon dilatation.. Persistent but decreasing dilatation of the transverse colon. Assessment and Plan - Diagnosis (1) Abdominal pain Qualifiers: Abdominal location: lower abdomen, unspecified Qualified Code(s): R10.30 - Lower abdominal pain, unspecified Is this a current diagnosis for this admission?: Yes Plan: Secondary to ileus/obstruction. Resolved (2) Acute cystitis Qualifiers: Hematuria presence: with hematuria Qualified Code(s): N30.01 - Acute cystitis with hematuria Is this a current diagnosis for this admission?: Yes Plan: With suprapubic catheter present. Treated with antibiotics and resolved (3) Ileus Is this a current diagnosis for this admission?: Yes Plan: Resolved. Loose stool is likely secondary to tube feeds. (4) Abdominal distention Is this a current diagnosis for this admission?: Yes Plan: Still slightly distended but very soft with positive bowel sounds. No significant pain. (5) Constipation Qualifiers: Constipation type: slow transit constipation Qualified Code(s): K59.01 - Slow transit constipation Is this a current diagnosis for this admission?: Yes Plan: Resolved (6) Tachycardia Is this a current diagnosis for this admission?: Yes Plan: Continue metoprolol (7) COPD exacerbation Is this a current diagnosis for this admission?: Yes Plan: Resolved. (8) Aphasia Is this a current diagnosis for this admission?: Yes Plan: Chronic. Back to baseline. (9) Dysphagia Qualifiers: Dysphagia type: unspecified Qualified Code(s): R13.10 - Dysphagia, unspecified Is this a current diagnosis for this admission?: Yes Plan: Remains n.p.o. Continue tube feeds. (10) Coronary artery disease Qualifiers: Coronary Disease-Associated Artery/Lesion type: [place] artery [place] vs. transplanted heart: [place] heart Associated angina: without angina Qualified Code(s): I25.10 - Atherosclerotic heart disease of [place] coronary artery without angina pectoris Is this a current diagnosis for this admission?: Yes Plan: Currently stable. Continue current regimen. (11) Chronic anticoagulation Is this a current diagnosis for this admission?: Yes Plan: Continue Xarelto. (12) Hypertension Qualifiers: Hypertension type: essential hypertension Qualified Code(s): I10 - Ess ential (primary) hypertension Is this a current diagnosis for this admission?: Yes Plan: The patient is back on metoprolol but his blood pressure still elevated. I am going to add low-dose losartan. 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 The fluid is getting discolored. Continue conservative care. - Time Time Spent with patient: 15-24 minutes Medications reviewed and adjusted accordingly: Yes Anticipated discharge: SNF Within: within 48 hours
[2018-08-18] MEDS: DEXTROSE 5%-NORMAL SALINE 1,000 ML IV PRN (23:44)
[2018-08-19] MEDS: INSULIN REG, HUMAN 100 UNIT/ML 3 ML VIAL (PYX) SUBCUT SCH ×3 (06:04→18:44)
[2018-08-19] MEDS: DOCUSATE SODIUM 100 MG/10 ML UDC PEG SCH ×2 (10:49→18:44)
[2018-08-19] MEDS: LOSARTAN POTASSIUM 25 MG TABLET NG SCH (10:51)
[2018-08-19] MEDS: METOPROLOL TARTRATE 25 MG TABLET PEG SCH ×2 (10:52→22:34)
[2018-08-19] MEDS: NORMAL SALINE 10 ML SDV (SCHEDULED) IV SCH ×2 (10:52→22:34)
[2018-08-19] MEDS: RIVAROXABAN 15 MG TABLET PEG SCH (10:52)
[2018-08-19] MEDS: ESCITALOPRAM OXALATE 10 MG TABLET PEG SCH (10:52)
[2018-08-19] MEDS: POLYETHYLENE GLYCOL 3350 POWDER 17 GM/1 PACKET PEG SCH (11:22)
--- NOTE | 2018-08-19 15:42 | PDOC PROGRESS REPORT ---
Subjective Progress Note for:: 08/19/18 Subjective:: Continues to do well. Resting comfortably reading the newspaper. Reason For Visit: ILEUS AND POSSIBLE CYSTITIS APHASIA, DYSPHAGIA, Physical Exam Vital Signs: Temp Pulse Resp BP Pulse Ox 97.8 F 64 16 125/88 H 100 08/19/18 12:00 08/19/18 12:00 08/19/18 12:00 08/19/18 12:00 08/19/18 12:00 Intake & Output 08/18/18 08/19/18 08/20/18 06:59 06:59 06:59 Intake Total 1000 1000 Output Total 1000 2180 Balance 0 -1180 Weight 52.5 kg General appearance: PRESENT: no acute distress, cooperative, well-developed Head exam: PRESENT: normocephalic Eye exam: PRESENT: conjunctiva pink. ABSENT: scleral icterus Ear exam: PRESENT: normal external ear exam Mouth exam: PRESENT: moist Respiratory exam: PRESENT: clear to auscultation eric - Decreased inspiratory phase bilaterally, symmetrical, unlabored. ABSENT: rales, rhonchi, tachypnea, wheezes Cardiovascular exam: PRESENT: RRR, +S1, +S2. ABSENT: diastolic murmur, rubs, systolic murmur GI/Abdominal exam: PRESENT: soft, other - PEG and suprapubic tubes in place. ABSENT: distended, tenderness Rectal exam: PRESENT: deferred Gentrourinary exam: PRESENT: indwelling catheter - Suprapubic Extremities exam: ABSENT: calf tenderness, pedal edema, tenderness Musculoskeletal exam: PRESENT: other - Decreased muscle mass Neurological exam: PRESENT: alert, awake, oriented to person, oriented to place, oriented to situation, aphasic - Communicates quite appropriately with head nodding. He does try to verbalize yes and no answers. Psychiatric exam: PRESENT: flat affect. ABSENT: agitated, anxious Results Laboratory Results: 08/15/18 10:27 08/15/18 06:17 08/02/18 08/02/18 12:15 13:34 Troponin I Cancelled < 0.012 Impressions: Chest X-Ray 08/02/18 11:48 IMPRESSION: COPD. Scarring in the lung apices. No acute findings. Acute Abdomen Series 08/03/18 00:00 IMPRESSION: Ileus. Abdomen/Pelvis CT 08/04/18 00:00 IMPRESSION: Persistent ileus Guidance Fluoroscopy 04/23/19 00:00 IMPRESSION: SUCCESSFUL PLACEMENT OF A 5 FR DUAL LUMEN 40 CM PICC IN THE RIGHT BASILIC VEIN. Interventional Vascular Procedure 08/07/18 00:00 IMPRESSION: SUCCESSFUL PLACEMENT OF A 5 FR DUAL LUMEN 40 CM PICC IN THE RIGHT BASILIC VEIN. PICC Line Insertion 08/07/18 00:00 IMPRESSION: SUCCESSFUL PLACEMENT OF A 5 FR DUAL LUMEN 40 CM PICC IN THE RIGHT BASILIC VEIN. Abdomen X-Ray 08/12/18 17:21 IMPRESSION: Worsening diffuse colonic dilatation which may be due to ileus. 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 KUB X-Ray 08/14/18 07:00 IMPRESSION: 1. Since the previous examination dated 08/12/2018, improvement in the appearance of the colon with interval resolution of right side colonic dilatation and significant decrease in the sigmoid colon dilatation.. Persistent but decreasing dilatation of the transverse colon. Assessment and Plan - Diagnosis (1) Abdominal pain Qualifiers: Abdominal location: lower abdomen, unspecified Qualified Code(s): R10.30 - Lower abdominal pain, unspecified Is this a current diagnosis for this admission?: Yes Plan: The patient initially presented with abdominal pain. He was distended. 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 No surgical intervention was required. We did try bowel rest. His abdomen was still distended when tube feeds were started since he was passing stool and gas. There were no residuals noted with tube feeds. We did place the PEG tube to low suction to try and decompress the bowel. The patient has been having frequent bowel movements that are quite loose. I believe this might be the tube feed formula. It is not the same formula that he uses at home. This information is available from his sister. The patient no longer has any abdominal pain. Bowel sounds are positive. He is not tympanitic. Abdominal pain resolved. (2) Acute cystitis Qualifiers: Hematuria presence: with hematuria Qualified Code(s): N30.01 - Acute cystitis with hematuria Is this a current diagnosis for this admission?: Yes Plan: The patient's urine culture was positive for Pseudomonas and enterococcus. Because he appeared quite ill both were treated with IV antibiotics. The patient completed his antibiotic therapy and the cystitis is resolved. (3) Ileus Is this a current diagnosis for this admission?: Yes Plan: As noted above the patient developed an ileus. This could have been related to his compromised state from the cystitis. As noted above the ileus has resolved. (4) Abdominal distention Is this a current diagnosis for this admission?: Yes Plan: Due to the ileus the patient had marked abdominal distention and tympany. There is a window of no bowel sounds. Ever so slowly this began to resolve. The patient no longer has distention or tympany. (5) Constipation Qualifiers: Constipation type: slow transit constipation Qualified Code(s): K59.01 - Slow transit constipation Is this a current diagnosis for this admission?: Yes Plan: This may have been responsible for the ileus. He was treated with stool softeners and laxatives. The constipation has resolved and in fact the patient has loose stools. (6) Tachycardia Is this a current diagnosis for this admission?: Yes Plan: The patient had tachycardia initially. It was felt to be a combination of his infection and decreased volume status. With the antibiotics and fluids the tachycardia resolved. It appears his normal range is in the 60s and 70s. (7) COPD exacerbation Is this a current diagnosis for this admission?: Yes Plan: The patient had some difficulty breathing on admission. He is no longer on any scheduled treatments. He has been stable on room air. Nebulizer treatments are available if needed. His sister reports that he does have a nebulizer machine at home. At this point there is no clinical need for scheduled nebulizer treatments or inhalers. 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 He does appear to communicate appropriately with nodding his head. He does attempt to answer yes and no questions but it is often difficult to understand. The head nodding is quite clear. (9) Dysphagia Qualifiers: Dysphagia type: unspecified Qualified Code(s): R13.10 - Dysphagia, unspecified Is this a current diagnosis for this admission?: Yes Plan: Long-standing from his strokes. He has a PEG tube in place. As noted above soft stool is likely related to the tube feeds. His sister knows the formula that he uses at home that seems to be tolerated best. (10) Coronary artery disease Qualifiers: Coronary Disease-Associated Artery/Lesion type: [place] artery [place] vs. transplanted heart: [place] heart Associated angina: without angina Qualified Code(s): I25.10 - Atherosclerotic heart disease of [place] coronary artery without angina pectoris Is this a current diagnosis for this admission?: Yes Plan: He has a history of coronary artery disease. Is quite stable on his current regimen. No changes at this time. He has not had any acute coronary symptoms during this hospitalization. (11) Chronic anticoagulation Is this a current diagnosis for this admission?: Yes Plan: Continue his Xarelto. There is been no evidence of bleeding. The patient has been stable on his current dose. (12) Hypertension Qualifiers: Hypertension type: essential hypertension Qualified Code(s): I10 - Essential (primary) hypertension Is this a current diagnosis for this admission?: Yes Plan: The patient's blood pressure does vary. It is still above the desired range. Medication adjustment might be required. (13) Bullous dermatitis Is this a current diagnosis for this admission?: Yes Plan: The patient had a single large bullous lesion at the PEG tube site. I believe it was more from irritation although it could be reaction to adhesives as he has reacted poorly to adhesives in the past. Once the blister drains he should only need a dry dressing without adhesive. - Time Time Spent with patient: 15-24 minutes Medications reviewed and adjusted accordingly: Yes Anticipated discharge: SNF Within: within 24 hours - Plan Summary Plan Summary: The patient has been accepted at [facility]. His sister did tour the facility and was pleased. He will transfer there tomorrow.
[2018-08-19] MEDS: DEXTROSE 5%-NORMAL SALINE 1,000 ML IV PRN (16:16)
[2018-08-20] MEDS: INSULIN REG, HUMAN 100 UNIT/ML 3 ML VIAL (PYX) SUBCUT SCH ×3 (01:21→13:28)
[2018-08-20] MEDS: DOCUSATE SODIUM 100 MG/10 ML UDC PEG SCH (10:51)
[2018-08-20] MEDS: METOPROLOL TARTRATE 25 MG TABLET PEG SCH (10:51)
[2018-08-20] MEDS: LOSARTAN POTASSIUM 25 MG TABLET NG SCH (10:51)
[2018-08-20] MEDS: ESCITALOPRAM OXALATE 10 MG TABLET PEG SCH (10:51)
[2018-08-20] MEDS: RIVAROXABAN 15 MG TABLET PEG SCH (10:51)
[2018-08-20] MEDS: NORMAL SALINE 10 ML SDV (SCHEDULED) IV SCH (10:52)
[2018-08-20] MEDS: DEXTROSE 5%-NORMAL SALINE 1,000 ML IV PRN (10:52)
[2018-08-20] MEDS: POLYETHYLENE GLYCOL 3350 POWDER 17 GM/1 PACKET PEG SCH (11:12)
--- NOTE | 2018-08-20 11:57 | PDOC TRANSFER SUMMARY ---
General - Admit/Disc Date/PCP Admission Date/Primary Care Provider: 08/02/18 16:08 FIDEL HANDY DO Discharge Date: 08/20/18 - Discharge Diagnosis (1) Abdominal pain Is this a current diagnosis for this admission?: Yes (2) Acute cystitis Is this a current diagnosis for this admission?: Yes (3) Ileus Is this a current diagnosis for this admission?: Yes (4) Abdominal distention Is this a current diagnosis for this admission?: Yes (5) Constipation Is this a current diagnosis for this admission?: Yes (6) Tachycardia Is this a current diagnosis for this admission?: Yes (7) COPD exacerbation Is this a current diagnosis for this admission?: Yes (8) Aphasia Is this a current diagnosis for this admission?: Yes (9) Dysphagia Is this a current diagnosis for this admission?: Yes (10) Coronary artery disease Is this a current diagnosis for this admission?: Yes (11) Bullous dermatitis Is this a current diagnosis for this admission?: Yes (13) Hypertension Is this a current diagnosis for this admission?: Yes (14) Prior stroke Is this a current diagnosis for this admission?: Yes - Additional Information Resuscitation Status: Do Not Resuscitate Home Medications: Albuterol Sulfate [Ventolin Hfa 8 gm Mdi (1 Mdi/ER Disp)] 2 puff IH Q4HP PRN 08/02/18 Benzonatate [Tessalon Perle 100 mg Capsule] 100 mg PEG Q8HP PRN 08/02/18 Budesonide [Pulmicort] 5 ml NEB BID 08/02/18 Escitalopram Oxalate [Lexapro 10 mg Tablet] 10 mg PEG DAILY 08/02/18 Metoprolol Tartrate [Lopressor 25 mg Tablet] 25 mg PEG Q12 08/02/18 Nystatin [Mycostatin 500,000 Unit/5 ml Susp Udcup] 5 ml PO TID 08/02/18 Olanzapine [Zyprexa 5 mg Tablet] 5 mg PEG DAILY 08/02/18 Rivaroxaban [Xarelto 15 mg Tablet] 15 mg PEG DAILY 08/02/18 History of Present Illness Admission Date/PCP: 08/02/18 16:08 FIDEL HANDY DO History of Present Illness: DALY PORTILLO SR is a 73 year old male with an unfortunate and complex medical history. He presents with his sister. The patient has a history of 2 strokes and a myocardial infarction. This has left him with aphasia and dysphagia. He has a PEG tube and suprapubic catheter. The patient's sister reports that he began having a cough several days ago. His face would get flushed. He would get diaphoretic. He was having discomfort in his abdomen and the home health care nurse changed his suprapubic catheter 48 hours ago. This was quite painful for him. His sister reports that he was getting more short of breath and coughing more. There was no sputum production. She did give him a nebulizer treatment in addition to his inhaler therapy and this did not help. She then noted that his abdomen was becoming distended and more painful. At this point he was brought to the emergency room. The patient has a positive urinalysis highly suspicious for infection and was found to have distended loops of bowel by diagnostic imaging. He was referred to hospital service for admission. Hospital Course Hospital Course: This is a 72 year old male with prior multiple CVAs with residual aphasia and dysphagia, S/P PEG, CAD, vascular dementia and chronic suprapubic catheter (history of severe penile injury from indwelling [place]) who was bought in due to increasing cough and abdominal distention.The patient initially presented with abdominal pain. He was distended. He was found to have an ileus and eventually felt to be [place]'s syndrome by surgery. No surgical intervention was required. The surgical team signed off on 08/13/2018. We did try bowel rest. His abdomen was still distended when tube feeds were started since he was passing stool and gas. There were no residuals noted with tube feeds. We did place the PEG tube to low suction to try and decompress the bowel. The patient has been having frequent bowel movements that are quite loose. I believe this might be the tube feed formula. It is not the same formula that he uses at home. This information is available from his sister. The patient no longer has any abdominal pain. Bowel sounds are positive. He is not tympanitic. Abdominal pain resolved. Physical Exam Vital Signs: Temp Pulse Resp BP Pulse Ox 98.2 F 70 16 154/84 H 98 08/20/18 08:00 08/20/18 08:00 08/20/18 08:00 08/20/18 08:00 08/20/18 08:00 Intake & Output 08/19/18 08/20/18 08/21/18 06:59 06:59 06:59 Intake Total 1000 1972 1583 Output Total 2180 1275 Balance -0873 689 0016 Weight 52.5 kg 51.5 kg General appearance: PRESENT: no acute distress Head exam: PRESENT: atraumatic Eye exam: PRESENT: conjunctiva pink Mouth exam: PRESENT: moist Respiratory exam: PRESENT: clear to auscultation eric. ABSENT: rales, rhonchi, wheezes Cardiovascular exam: PRESENT: RRR. ABSENT: diastolic murmur, rubs, systolic murmur Pulses: PRESENT: normal dorsalis pedis pul Neurological exam: PRESENT: alert, awake Results Laboratory Results: 08/15/18 10:27 08/15/18 06:17 08/02/18 08/02/18 12:15 13:34 Troponin I Cancelled < 0.012 Impressions: Chest X-Ray 08/02/18 11:48 IMPRESSION: COPD. Scarring in the lung apices. No acute findings. Acute Abdomen Series 08/03/18 00:00 IMPRESSION: Ileus. Abdomen/Pelvis CT 08/04/18 00:00 IMPRESSION: Persistent ileus Guidance Fluoroscopy 08/07/18 00:00 IMPRESSION: SUCCESSFUL PLACEMENT OF A 5 FR DUAL LUMEN 40 CM PICC IN THE RIGHT BASILIC VEIN. Interventional Vascular Procedure 08/07/18 00:00 IMPRESSION: SUCCESSFUL PLACEMENT OF A 5 FR DUAL LUMEN 40 CM PICC IN THE RIGHT BASILIC VEIN. PICC Line Insertion 08/07/18 00:00 IMPRESSION: SUCCESSFUL PLACEMENT OF A 5 FR DUAL LUMEN 40 CM PICC IN THE RIGHT BASILIC VEIN. Abdomen X-Ray 08/12/18 17:21 IMPRESSION: Worsening diffuse colonic dilatation which may be due to ileus. Could also represent Ho syndrome. KUB X-Ray 08/14/18 07:00 IMPRESSION: 1. Since the previous examination dated 08/12/2018, improvement in the appearance of the colon with interval resolution of right side colonic dilatation and significant decrease in the sigmoid colon dilatation.. Persistent but decreasing dilatation of the transverse colon. Qualifiers - * PATIENT BEING DISCHARGED WITH ANY OF THE FOLLOWING DIAGNOSIS: No Acute Heart Failure Is this a Heart Failure Patient?: Yes
[2018-08-20 13:27] VITALS: BP 142/93
== END 2018-08-20 16:30 | DRG 699 ==
LOC: ER 11:43 → EH 16:08 → 4N 23:19
PROVIDERS: ADMIT Hospitalist; ATTEND Hospitalist
PROC: 3E0F73Z Introduction of Anti-inflammatory into Respiratory Tract, Via Natural or Artificial Opening (ICD-10-PCS; 2018-08-02)
PROC: 02HV33Z Insertion of Infusion Device into Superior Vena Cava, Percutaneous Approach (ICD-10-PCS; principal; 2018-08-07)
PROC: B5181ZA Fluoroscopy of Superior Vena Cava using Low Osmolar Contrast, Guidance (ICD-10-PCS; 2018-08-07)
DX: T83.518A Infection and inflammatory reaction due to other urinary catheter, initial encounter (principal); K56.7 Ileus, unspecified; J44.1 Chronic obstructive pulmonary disease with (acute) exacerbation; N30.01 Acute cystitis with hematuria; I25.10 Atherosclerotic heart disease of native coronary artery without angina pectoris; L13.9 Bullous disorder, unspecified; F01.50 Vascular dementia, unspecified severity, without behavioral disturbance, psychotic disturbance, mood disturbance, and anxiety; I10 Essential (primary) hypertension; K59.01 Slow transit constipation; I25.2 Old myocardial infarction; I69.320 Aphasia following cerebral infarction; I69.391 Dysphagia following cerebral infarction; K21.9 Gastro-esophageal reflux disease without esophagitis; E11.9 Type 2 diabetes mellitus without complications; F25.1 Schizoaffective disorder, depressive type; B96.20 Unspecified Escherichia coli [E. coli] as the cause of diseases classified elsewhere; B96.5 Pseudomonas (aeruginosa) (mallei) (pseudomallei) as the cause of diseases classified elsewhere; B95.2 Enterococcus as the cause of diseases classified elsewhere; E83.42 Hypomagnesemia; E87.6 Hypokalemia; Z79.899 Other long term (current) drug therapy; Z86.73 Personal history of transient ischemic attack (TIA), and cerebral infarction without residual deficits; Z66 Do not resuscitate; Z93.1 Gastrostomy status; Z88.3 Allergy status to other anti-infective agents; Z79.01 Long term (current) use of anticoagulants; Z74.01 Bed confinement status
CPT/HCPCS: 36415; 36569; 71045; 74018; 74019; 74022; 74176; 74177; 76937; 77001; 80048; 80053; 81001; 82803; 82962; 83605; 83735; 84132; 84484; 85025; 85610; 87040; 87086; 87088; 87186; 87493; 93005; 93010; 94640; 96361; 96365; 96375; 99285; C1769; J0696; J0744; J1610; J1642; J2270; J2405; J2765; J2997; J3475; J3480; J3490; J7030; J7042; J7060; J7620

== ENCOUNTER 2018-10-13 17:59 | Emergency (ER) | payer MEDICAID, MEDICARE ==
--- NOTE | 2018-10-13 18:22 | ER Document Report ---
ED General - General Stated Complaint: FEEDING TUBE ISSUES Time Seen by Provider: 10/13/18 18:16 Primary Care Provider: FIDEL HANDY DO [Primary Care Provider] - Follow up as needed TRAVEL OUTSIDE OF THE [place] IN LAST 30 DAYS: No - HPI Notes: Patient is a 73-year-old male that presents to the emergency department for chief complaint of gastric tube dislodgment. Patient has had a G-tube for the last few years. Family states that about 30 minutes ago the tube came out. They are not sure how the tube became dislodged. Patient had not been having any issues with the function of the tube. Family has no other concerns at this time. Patient is nonverbal limiting HPI. Past Medical History: Reviewed in chart Past Surgical History: Reviewed in chart Social History: Reviewed in chart Family History: Reviewed and noncontributory for presenting illness Allergies: Reviewed, see documented allergy list. REVIEW OF SYSTEMS: Unable to obtain given patient mental status PHYSICAL EXAMINATION: Vital signs reviewed, nursing noted reviewed. GENERAL: Well-appearing, well-nourished and in no acute distress. HEAD: Atraumatic, normocephalic. EYES: Eyes appear normal, extraocular movements intact, sclera anicteric, conjunctiva are normal. ENT: nares patent, oropharynx clear without exudates. Moist mucous membranes. NECK: Normal range of motion, supple without lymphadenopathy LUNGS: Breath sounds clear to auscultation bilaterally and equal. No wheezes rales or rhonchi. HEART: Regular rate and rhythm without murmurs ABDOMEN: G-tube ostomy clean, dry, intact with no surrounding erythema. Soft, nontender, normoactive bowel sounds. No rebound, guarding, or rigidity. No masses appreciated. EXTREMITIES: Nontender, good range of motion, no pitting or edema. NEUROLOGICAL: No focal neurological deficits. Moves all extremities spontaneously Motor and sensory grossly intact on exam. PSYCH: Normal mood, normal affect. SKIN: Warm, Dry, normal turgor, no rashes or lesions noted on exposed skin - Related Data Allergies/Adverse Reactions: adhesive tape Allergy (Verified 08/11/18 00:24) Hives levofloxacin Adverse Reaction (Verified 12/13/17 08:41) Hives Past Medical History - Social History Smoking Status: Never Smoker Family History: Reviewed & Not Pertinent, CAD, COPD, Hypertension, Malignancy, Other - Renal disease - Past Medical History Cardiac Medical History: Reports: Hx Congestive Heart Failure, Hx Heart Attack, Hx Hypertension Pulmonary Medical History: Reports: Hx COPD, Hx Pneumonia Neurological Medical History: Reports: Hx Cerebrovascular Accident. Denies: Hx Seizures Endocrine Medical History: Reports: Hx Diabetes Mellitus Type 2. Denies: Hx Diabetes Mellitus Type 1, Hx Hyperthyroidism Renal/ Medical History: Denies: Hx End Stage Renal Disease, Hx Peritoneal Dialysis GI Medical History: Reports: Hx Gastroesophageal Reflux Disease. Denies: Hx Cirrhosis, Hx Hepatitis Musculoskeletal Medical History: Denies Hx Arthritis, Denies Hx Gout Skin Medical History: Denies Hx Eczema, Denies Hx Psoriasis Psychiatric Medical History: Reports: Hx Depression, Hx Schizoaffective Disorder, Hx Schizophrenia Infectious Medical History: Denies: Hx Hepatitis Past Surgical History: Reports: Hx Abdominal Surgery - feeding tube, Hx Genitourinary Surgery, Hx Orthopedic Surgery - Left wrist, Other - PEG tube placement, ? previous TURP, suprapubic catheter - Immunizations Immunizations up to date: Yes Hx Diphtheria, Pertussis, Tetanus Vaccination: Yes Hx Pneumococcal Vaccination: 04/27/16 Course - Re-evaluation Re-evalutation: 10/13/18 18:21 Vitals reviewed. Nursing notes reviewed. Patient had dislodgment of his G-tube about 30 minutes prior to arrival. There was very minimal sterile water left in the balloon which is likely what caused the tube to become displaced. It had been reportedly in for at least a year. A new 24 Sami G-tube was placed without difficulty. Patient will be discharged home in stable condition. Procedures - Additional Procedures Gastric tube replacement Time performed: 18:18 Additional Procedures: Gastric tube replacement - 24 Sami gastric tube replaced. Verbal consent given by POA. Lubrication and direct pressure used for placement of the tube. Tube went in without significant resistance. Gastric contents were aspirated and air bubble was auscultated. Balloon was inflated with 6 mL sterile water. Tube was taped into place. Patient tolerated well with no immediate complications. Discharge - Discharge Clinical Impression: Visit for feeding tube placement Condition: Stable Disposition: HOME, SELF-CARE Instructions: Transdermal Gastric Tube Placement ([facility]) Additional Instructions: Please return to the emergency department if you have any worsening, or concern of your symptoms. Please return to the emergency department if you develop chest pain, difficulty breathing, severe abdominal pain, or ongoing vomiting. Please follow-up with your primary care physician in 2-3 days and any other recommended physicians. If prescribed, take all medications as directed. If you have any questions or concerns do not hesitate to return the emergency department for evaluation. Referrals: FIDEL HANDY, DO [Primary Care Provider] - Follow up in 3-5 days
[2018-10-13 19:17] VITALS: BP 111/80
== END 2018-10-13 19:55 | disposition home or self-care (01) ==
LOC: ER 17:59
PROC: 0DH63UZ Insertion of Feeding Device into Stomach, Percutaneous Approach (ICD-10-PCS; principal; 2018-10-13)
DX: K94.23 Gastrostomy malfunction (principal); I50.9 Heart failure, unspecified; I11.0 Hypertensive heart disease with heart failure; J44.9 Chronic obstructive pulmonary disease, unspecified; E11.9 Type 2 diabetes mellitus without complications
CPT/HCPCS: 99282